=== PATIENT | female | born 1940 | race Caucasian/White ===

== ENCOUNTER 2018-02-17 18:08 | Inpatient (IN) | payer MEDICARE, OTHER ==
--- NOTE | 2018-02-17 18:51 | ER Document Report ---
ED Medical Screen (RME) - General Chief Complaint: Abnormal Lab Results Stated Complaint: REFERRED/ WEAKNESS Time Seen by Provider: 02/17/18 18:47 Notes: Patient was referred here by her primary care provider to receive blood. Patient has a CBC from earlier today which shows a hemoglobin of 5.5 and hematocrit of 20. Patient has a history of gastrointestinal bleeding about 4 years ago secondary to hemorrhoids and had surgery for the latter and has been stable ever since until recently she has been gone to feel very tired and sleepy. She has noticed some black feces, but she is on iron. Has not seen any blood in her stools. Patient has been falling frequently of late and just recently spent some time in [facility]. TRAVEL OUTSIDE OF THE [place] IN LAST 30 DAYS: No - Related Data Allergies/Adverse Reactions: methotrexate [Methotrexate] Allergy (Verified 10/09/13 18:02) Penicillins Allergy (Verified 10/09/13 17:49) Past Medical History - Past Medical History Cardiac Medical History: Reports: Hx Congestive Heart Failure, Hx Hypercholesterolemia, Hx Hypertension Pulmonary Medical History: Denies: Hx Tuberculosis Endocrine Medical History: Reports: Hx Diabetes Mellitus Type 2 Renal/ Medical History: Denies: Hx Peritoneal Dialysis GI Medical History: Reports: Hx Gastroesophageal Reflux Disease Skin Medical History: Reports Hx Psoriasis Past Surgical History: Denies: Hx Pacemaker - Immunizations Hx Diphtheria, Pertussis, Tetanus Vaccination: No Physical Exam - Vital signs Vitals: Temp Pulse Resp BP Pulse Ox 98.2 F 64 24 H 142/42 H 96 02/17/18 18:23 02/17/18 18:23 02/17/18 18:23 02/17/18 18:23 02/17/18 18:23 Course - Vital Signs Vital signs: Temp Pulse Resp BP Pulse Ox 98.2 F 64 24 H 142/42 H 96 02/17/18 18:23 02/17/18 18:23 02/17/18 18:23 02/17/18 18:23 02/17/18 18:23 Doctor's Discharge - Discharge Referrals: TAVARES GONZALEZ DO [Primary Care Provider] - Follow up as needed
[2018-02-17] MEDS ORDERED: NORMAL SALINE 250 ML IV PRN (18:52)
[2018-02-17 20:11] LABS: ABSOLUTE LYMPHOCYTES (AUTO) 0.4 10^3/uL (0.5-4.7); ABSOLUTE MONOCYTES (AUTO) 0.4 10^3/uL (0.1-1.4); BASOPHILS % (AUTO) 0.5 % (0-2); EOSINOPHILS % (AUTO) 0.4 % (0-6); HEMATOCRIT 18.8 % (36.0-47.0); LYMPHOCYTES % (AUTO) 5.5 % (13-45); MEAN CORPUSCULAR HEMOGLOBIN 27.6 pg (27.0-33.4); MEAN CORPUSCULAR HGB CONC 29.8 g/dL (32.0-36.0); MEAN CORPUSCULAR VOLUME 93 fl (80-97); MONOCYTES % (AUTO) 5.4 % (3-13); PLATELET COUNT 379 10^3/uL (150-450); RED BLOOD COUNT 2.03 10^6/uL (3.72-5.28); SEGMENTED NEUTROPHILS % (AUTO) 88.2 % (42-78); TOTAL CELLS COUNTED % (AUTO) 100 %; WHITE BLOOD COUNT 6.8 10^3/uL (4.0-10.5)
[2018-02-17 20:17] LABS: HEMOGLOBIN 5.6 g/dL (12.0-15.5)
--- NOTE | 2018-02-17 21:20 | ER Document Report ---
ED General - General Mode of Arrival: Ambulatory Information source: Patient TRAVEL OUTSIDE OF THE [place] IN LAST 30 DAYS: No <RENETTA HU - Last Filed: 02/18/18 03:42> <OSBALDO PARDO - Last Filed: 02/18/18 03:42> - General Chief Complaint: Abnormal Lab Results Stated Complaint: REFERRED/ WEAKNESS Time Seen by Provider: 02/17/18 18:47 Notes: Patient is a 77 year old female with a history of anemia was sent to the emergency department from PCP's office for a blood transfusion. While at the patient's PCP's office, the patient hemoglobin was recorded to be 5.5 with a hematocrit of 20 and was subsequently sent to the ER. She states she was recently in rehab for frequent falls and discharged 3 days ago. Patient states she has been feeling weak since her discharge from rehab. She states she has been taking iron pills for 1 month and has had subsequent black stools. She also complains of shortness of breath and constant chest pressure further stating her chest pressure has been present since 1991 though recently it radiates into her neck. She denies any bright red blood in stool. Patient had a GI bleed in 2013. (RENETTA HU) - Related Data Allergies/Adverse Reactions: methotrexate [Methotrexate] Allergy (Verified 10/09/13 18:02) Penicillins Allergy (Verified 10/09/13 17:49) Past Medical History - General Information source: Patient - Social History Smoking Status: Former Smoker Family History: Reviewed & Not Pertinent Patient has suicidal ideation: No Patient has homicidal ideation: No - Past Medical History Cardiac Medical History: Reports: Hx Congestive Heart Failure, Hx Hypercholesterolemia, Hx Hypertension Endocrine Medical History: Reports: Hx Diabetes Mellitus Type 2 GI Medical History: Reports: Hx Gastroesophageal Reflux Disease Skin Medical History: Reports Hx Psoriasis - Immunizations Hx Diphtheria, Pertussis, Tetanus Vaccination: No <RENETTA HU - Last Filed: 02/18/18 03:42> Review of Systems - Review of Systems Constitutional: See HPI, Malaise, Weakness EENT: No symptoms reported Cardiovascular: No symptoms reported Respiratory: No symptoms reported Gastrointestinal: See HPI, Black stools - Chronic Genitourinary: No symptoms reported Female Genitourinary: No symptoms reported Musculoskeletal: No symptoms reported Skin: No symptoms reported Hematologic/Lymphatic: No symptoms reported Neurological/Psychological: No symptoms reported -: Yes All other systems reviewed and negative <RENETTA HU - Last Filed: 02/18/18 03:42> Physical Exam <RENETTA HU - Last Filed: 02/18/18 03:42> <OSBALDO PARDO - Last Filed: 02/18/18 03:42> - Vital signs Vitals: Temp Pulse Resp BP Pulse Ox 98.2 F 64 24 H 142/42 H 96 02/17/18 18:23 02/17/18 18:23 02/17/18 18:23 02/17/18 18:23 02/17/18 18:23 - Notes Notes: GENERAL: Alert, interacts well. Appears weak. HEAD: Normocephalic, atraumatic. EYES: Pupils equal, round, and reactive to light. Extraocular movements intact. ENT: Oral mucosa moist, tongue midline. NECK: Full range of motion. Supple. Trachea midline. LUNGS: Trace crackles in the LLL. Appears short of breath. HEART: 3/6 systolic murmur. No gallops or rubs. ABDOMEN: Soft, non-tender. Non-distended. Bowel sounds present in all 4 quadrants. EXTREMITIES: Moves all 4 extremities spontaneously. 1+ pitting edema in the RLE. Radial and dorsalis pedis pulses 2/4 bilaterally. No cyanosis. NEUROLOGICAL: Alert and oriented x3. Normal speech. PSYCH: Normal affect, normal mood. SKIN: Warm, dry, normal turgor. No rashes or lesions noted. RECTAL: No signs of active bleeding. Light brown stool, no melena. (RENETTA HU) Course - Laboratory Result Diagrams: 02/17/18 19:56 02/17/18 21:40 <RENETTA HU - Last Filed: 02/18/18 03:42> - Laboratory Result Diagrams: 02/17/18 19:56 02/17/18 21:40 <OSBALDO PARDO - Last Filed: 02/18/18 03:42> - Re-evaluation Re-evalutation: 02/17/18 23:40 CBC shows leukocytosis hemoglobin of 5.6, no glucose profound anemia with a hemoglobin of 5.6, no leukocytosis, platelets normal, INR slightly prolonged at 1.17, chemistries are abnormal with a sodium of 47.9, potassium slightly elevated at 5.1, CO2 low at 18 but there is no anion gap, it is normal at 13, BUN and creatinine are elevated at 45 and 1.48 respectively, this is her baseline, troponin was checked as she states that she has been having chest pressure since 1991 however it now radiates to her neck for the past month. Occult blood testing is positive, rectal exam was not grossly melanotic. Patient has been typed and crossed for 2 units, patient does have a history of congestive heart failure so she will be given Lasix as well. I discussed the patient with Dr. Napier the hospitalist who is on-call who requested that I discussed with GI, I discussed with Dr. Ramirez the history professor on-call who accepts the consult and states they will likely end up doing endoscopies to see if they can figure out where the bleeding is coming from. I then called Dr. Napier back who accepts the patient to her service as a full admit to the telemetry care unit. (OSBALDO PARDO) - Vital Signs Vital signs: Temp Pulse Resp BP Pulse Ox 97.9 F 63 18 166/58 H 99 02/18/18 01:29 02/18/18 01:29 02/18/18 01:29 02/18/18 01:29 02/18/18 01:29 - Laboratory Laboratory results interpreted by me: 02/17/18 02/17/18 02/17/18 19:56 19:56 21:40 RBC 2.03 L Hgb 5.6 L Hct 18.8 L MCHC 29.8 L RDW 21.0 H Seg Neutrophils % 88.2 H Lymphocytes % 5.5 L Absolute Lymphocytes 0.4 L PT Sodium 147.9 H Potassium 5.1 H Chloride 117 H Carbon Dioxide 18 L BUN 45 H Creatinine 1.48 H Est GFR ( Amer) 41 L Est GFR (Non-Af Amer) 34 L Glucose 181 H Total Protein 6.0 L Albumin 3.2 L Crossmatch See Detail 02/17/18 21:40 RBC Hgb Hct MCHC RDW Seg Neutrophils % Lymphocytes % Absolute Lymphocytes PT 15.5 H Sodium Potassium Chloride Carbon Dioxide BUN Creatinine Est GFR ( Amer) Est GFR (Non-Af Amer) Glucose Total Protein Albumin Crossmatch Discharge <RENETTA HU - Last Filed: 02/18/18 03:42> - Discharge Admitting Provider: Hospitalist - iame Unit Admitted: Telemetry <OSBALDO PARDO - Last Filed: 02/18/18 03:42> - Discharge Clinical Impression: Blood loss anemia GI bleed Qualifiers: GI bleed type/associated pathology: unspecified gastrointestinal hemorrhage type Qualified Code(s): K92.2 - Gastrointestinal hemorrhage, unspecified Condition: Fair Disposition: ADMITTED INPATIENT Scribe Attestation: 02/18/18 03:42 I personally performed the services described in the documentation, reviewed and edited the documentation which was dictated to the scribe in my presence, and it accurately records my words and actions. (OSBALDO PARDO) Scribe Documentation - Scribe Written by Singhe:: Jomar Mcdonough, 02/17/2018 21:31 acting as scribe for :: Amanda <RENETTA HU - Last Filed: 02/18/18 03:42>
[2018-02-17] MEDS ORDERED: FUROSEMIDE INJ/PF 40 MG/4 ML SDV IV ONE (21:29)
[2018-02-17 22:01] LABS: INTERNATIONAL RATION (INR) 1.17; PARTIAL THROMBOPLASTIN TIME 26.7 SEC (23.5-35.8); PROTHROMBIN TIME 15.5 SEC (11.4-15.4)
[2018-02-17 22:16] LABS: ALANINE AMINOTRANSFERASE 27 U/L (9-52); ALBUMIN 3.2 g/dL (3.5-5.0); ALKALINE PHOSPHATASE 88 U/L (38-126); ANION GAP 13 (5-19); ASPARTATE AMINO TRANSFERASE 29 U/L (14-36); BILIRUBIN,DIRECT 0.4 mg/dL (0.0-0.4); BILIRUBIN,TOTAL 0.4 mg/dL (0.2-1.3); BLOOD UREA NITROGEN 45 mg/dL (7-20); CALCIUM 8.5 mg/dL (8.4-10.2); CARBON DIOXIDE 18 mmol/L (22-30); CHLORIDE 117 mmol/L (98-107); GLUCOSE 181 mg/dL (75-110); POTASSIUM 5.1 mmol/L (3.6-5.0); SODIUM 147.9 mmol/L (137-145)
[2018-02-18] MEDS ORDERED: METOCLOPRAMIDE HCL INJ/PF 10 MG/2 ML SDV IV PRN (00:17)
[2018-02-18] MEDS ORDERED: DEXTROSE 50%-WATER 25 GM/50 ML DISP.SYRIN IV PRN ×4 (00:17→00:24)
[2018-02-18] MEDS ORDERED: ACETAMINOPHEN 325 MG TABLET PO PRN (00:17)
[2018-02-18] MEDS ORDERED: GLUCAGON,HUMAN RECOMB 1 MG INJ SUBCUT PRN (00:17)
[2018-02-18] MEDS ORDERED: DEXTROSE 40% GEL 15 GM TUBE PO PRN ×4 (00:17→00:24)
[2018-02-18] MEDS ORDERED: GLUCAGON,HUMAN RECOMB 1 MG INJ IM PRN (00:24)
[2018-02-18] MEDS ORDERED: INSULIN REG, HUMAN 100 UNIT/ML 3 ML VIAL (PYX) SUBCUT PRN (00:24)
[2018-02-18] MEDS ORDERED: PANTOPRAZOLE SODIUM 40 MG VIAL IV ONE (00:45)
--- NOTE | 2018-02-18 01:18 | PDOC H&P ---
History of Present Illness Admission Date/PCP: 02/17/18 23:48 TAVARES GONZALEZ DO Patient complains of: Needs a blood transfusion History of Present Illness: PREETI ELIZABETH is a 77 year old female with history of anemia who comes to the emergency department sent by her PCP for a blood transfusion. Her friend who is at the bedside tells me she was hospitalized recently at [facility] and discharged to a rehab facility improved her frequent falls, discharge from the facility last Friday and is staying with her friend. One day ago the patient fell from the bed having an excoriation with peeling of her skin in her left upper extremity, reason for which they went to her primary care physician, laboratory was done and her hemoglobin was recorded to be 5.5 with a hematocrit of 20, sent to the ED. She has been feeling weak since her discharge from rehab. Tells me she is having shortness of breath and some chest pressure but she is not sure if that is new or not. Tells me she has black stools for the last 2 or 3 months when she has started taking iron pills, 2 large bowel movements and to a small during the day. Denies any bleeding including vaginal bleeding. Denies taking NSAIDs or any other [id number] medication except for calcium. Denies history of malignancy. About 3 years ago she was hospitalized in [place], she was found with a hemoglobin of 4, received blood transfusion and was following with transportation department head. Tells me she had a colonoscopy but she does not remember an EGD. In the emergency department to PRBCs order, 1 running the time of my interview with her. Is in immunosuppressant drugs for her rheumatoid arthritis. Taking Plavix for her coronary arterial disease. Has been told to not take methotrexate as gave her a very bad adverse reaction in the past. Hemoglobin 5.6 and hematocrit 18 in the ED. Occult blood in his stools positive. Past Medical History Past Medical History: Rheumatoid arthritis Cardiac Medical History: Reports: Congestive Heart Failure, Coronary Artery Disease - With 2 stents in the past, Hyperlipidema, Hypertension Pulmonary Medical History: Denies: Tuberculosis Endocrine Medical History: Reports: Diabetes Mellitus Type 2 GI Medical History: Reports: Gastroesophageal Reflux Disease, Other - GI bleeding Skin Medical History: Reports: Psoriasis Past Surgical History Past Surgical History: Reports: Cardiac Catheterization, Herniorrhaphy Denies: Pacemaker Social History Information Source: Patient Lives with: Friend Smoking Status: Former Smoker - We do smoking about 30 years ago Hx Recreational Drug Use: No Hx Prescription Drug Abuse: No Past Social History Note: 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 Family History Family History: Reviewed & Not Pertinent Parental Family History Reviewed: Yes - Both parents had a [place] Children Family History Reviewed: NA Sibling(s) Family History Reviewed.: NA Medication/Allergy Home Medications: Acetaminophen [Tylenol 325 mg Tablet] 650 mg PO Q4HP PRN 03/05/12 Amlodipine Besylate [Norvasc 10 mg Tablet] 10 mg PO DAILY 03/05/12 Atenolol [Tenormin 25 mg Tablet] 25 mg PO DAILY 03/05/12 Clopidogrel Bisulfate [Plavix 75 Mg Tablet] 75 mg PO DAILY 03/05/12 Fenofibrate [Lofibra] 160 mg PO DAILY 03/05/12 Glipizide [Glucotrol Xl 2.5 Mg Tab.Er] 2.5 mg PO DAILY 03/05/12 Pantoprazole Sodium [Protonix] 40 mg PO DAILY 03/05/12 Sertraline HCl [Zoloft 50 Mg Tablet] 50 mg PO DAILY 03/05/12 Acidophilus/Bifido Longum [Lactobacillus Capsule] 16 mg PO BID 03/06/12 Prednisone [Prednisone 1 Mg Tablet] 5 mg PO DAILY 03/06/12 Acetaminophen with Codeine [Tylenol with Codeine #3 Tablet] 1 tab PO Q4 PRN Ciprofloxacin HCl [Cipro 250 mg Tablet] 1 tab PO BID 08/12/13 Folic Acid 1 mg PO DAILY 08/12/13 Gabapentin [Neurontin 400 mg Capsule] 400 mg PO Q8 08/12/13 Losartan Potassium 100 mg PO 08/12/13 Magnesium Oxide [Mag-Oxide] 400 mg PO 08/12/13 Methotrexate Sodium [Methotrexate] 2.5 mg PO DAILY 08/12/13 Nystatin/Dexameth/Diphen [Magic Mouthwash] 5 ml PO QID #120 ml 08/12/13 Oxycodone HCl/Acetaminophen [Percocet 5-325 mg Tablet] 1 tab PO ASDIR PRN #10 tablet 08/12/13 Solifenacin Succinate [Vesicare] 5 mg PO DAILY 08/12/13 Allergies/Adverse Reactions: methotrexate [Methotrexate] Allergy (Verified 10/09/13 18:02) Penicillins Allergy (Verified 10/09/13 17:49) Review of Systems Review of Systems: As outlined in the HPI, all others negative Physical Exam Vital Signs: Temp Pulse Resp BP Pulse Ox 98.3 F 66 22 H 163/55 H 100 02/17/18 22:18 02/17/18 22:18 02/17/18 22:18 02/17/18 22:18 02/17/18 22:18 Additional comments: General appearance: Well-developed, well-nourished, alert and cooperative, and appears to be in no acute distress Head: Normocephalic Eyes: PEERL, EOMI, vision is grossly intact. Ears: External auditory canal and tympanic membranes clear, hearing grossly intact. Nose: No nasal discharge. Throat: Oral cavity and pharynx normal. No inflammation, swelling, exudate or lesions. Neck: Neck supple, nontender without lymphadenopathy, masses or thyromegaly. Cardiac: Normal S1 and S2. No S3, S4 or murmurs. Rhythm is regular. There is no peripheral edema, cyanosis or pallor. Extremities are warm and well perfused. Capillary refill is less than 2 seconds. No carotid bruits. Lungs: Clear to auscultation and percussion without rales, rhonchi, wheezing or diminished breath sounds. Not using accessory muscles. Abdomen: Positive bowel sounds. Soft. Nondistended, nontender. No guarding or rebound. No masses. No hepatosplenomegaly Extremities: No significant deformity or joint abnormality. No edema. Peripheral pulses intact. No varicosities. Neurological: Cranial nerves II through XII grossly intact. Strength and sensation symmetric and intact throughout. Reflexes 2+ throughout. Skin: Skin pale, normal texture and turgor with no lesions or eruptions, warm and dry. Psychiatric: The mental examination revealed the patient was oriented to person , place, and time. The patient was able to demonstrate good judgment on recent , without hallucinations, abnormal affect or abnormal behaviors. Results Laboratory Results: 02/17/18 02/17/18 02/17/18 19:56 21:24 21:40 WBC 6.8 RBC 2.03 L Hgb 5.6 L Hct 18.8 L MCV 93 MCH 27.6 MCHC 29.8 L RDW 21.0 H Plt Count 379 Seg Neutrophils % 88.2 H Lymphocytes % 5.5 L Monocytes % 5.4 Eosinophils % 0.4 Basophils % 0.5 Absolute Neutrophils 6.0 Absolute Lymphocytes 0.4 L Absolute Monocytes 0.4 Absolute Eosinophils 0.0 Absolute Basophils 0.0 PT INR APTT Sodium 147.9 H Potassium 5.1 H Chloride 117 H Carbon Dioxide 18 L Anion Gap 13 BUN 45 H Est GFR ( Amer) 41 L Est GFR (Non-Af Amer) 34 L Glucose 181 H Calcium 8.5 Total Bilirubin 0.4 Direct Bilirubin 0.4 AST 29 ALT 27 Alkaline Phosphatase 88 Total Protein 6.0 L Albumin 3.2 L Stool Occult Blood POSITIVE 02/17/18 21:40 WBC RBC Hgb Hct MCV MCH MCHC RDW Plt Count Seg Neutrophils % Lymphocytes % Monocytes % Eosinophils % Basophils % Absolute Neutrophils Absolute Lymphocytes Absolute Monocytes Absolute Eosinophils Absolute Basophils PT 15.5 H INR 1.17 APTT 26.7 Sodium Potassium Chloride Carbon Dioxide Anion Gap BUN Est GFR ( Amer) Est GFR (Non-Af Amer) Glucose Calcium Total Bilirubin Direct Bilirubin AST ALT Alkaline Phosphatase Total Protein Albumin Stool Occult Blood Assessment & Plan - Diagnosis (1) GI bleed Qualifiers: GI bleed type/associated pathology: unspecified gastrointestinal hemorrhage type Qualified Code(s): K92.2 - Gastrointestinal hemorrhage, unspecified Is this a current diagnosis for this admission?: Yes Plan: Patient comes from her primary care physician as she was found with profound anemia, hemoglobin 5.6 and hematocrit 18. Patient is running 1 unit of PRBC and I will give the second 1 and recheck her H&H. ED sent and a smear. Photonix 40 mg IV every 12 hours. Will try to add anyemia workup to labs collected in the ED before she has started a transfusion. GI with Dr. Ramirez is aware of the patient and will see her in consultation. No active bleeding. Iron and Plavix on hold. (2) Hypertension Qualifiers: Hypertension type: essential hypertension Qualified Code(s): I10 - Essential (primary) hypertension Is this a current diagnosis for this admission?: Yes Plan: Blood pressure decently controlled, for now I will continue with her home antihypertensive medications. (3) Diabetes mellitus type 2 in obese Is this a current diagnosis for this admission?: Yes Plan: Continue with glipizide. Accu-Cheks every 4 hours with insulin lispro sliding scale and hypoglycemia protocol. (4) Coronary artery disease Qualifiers: Coronary Disease-Associated Artery/Lesion type: unspecified vessel or lesion type Associated angina: without angina Is this a current diagnosis for this admission?: Yes Plan: Patient has some chest pressure that he has been having for years. No new cardiac symptomatology. (5) CHF (congestive heart failure) Qualifiers: Heart failure chronicity: unspecified Is this a current diagnosis for this admission?: Yes Plan: Unknown systolic or diastolic, she is on Lasix at home. Lasix has been ordered in the ED before blood transfusion. Close monitor her respiratory status. (6) Acute renal failure superimposed on stage 3 chronic kidney disease Is this a current diagnosis for this admission?: Yes Plan: BUN 45 and creatinine 1.48, patient has CKD stage III and her baseline creatinine is around 1.3. Hopefully after transfusion it goes back to her baseline. Renal panel in the morning.
[2018-02-18 06:06] LABS: ABSOLUTE BASOPHILS # (AUTO) 0.1 10^3/uL (0.0-0.2); ABSOLUTE EOSINOPHILS # (AUTO) 0.1 10^3/uL (0.0-0.6); ABSOLUTE LYMPHOCYTES (AUTO) 0.9 10^3/uL (0.5-4.7); ABSOLUTE MONOCYTES (AUTO) 0.7 10^3/uL (0.1-1.4); ABSOLUTE NEUT (AUTO) 4.8 10^3/uL (1.7-8.2); BASOPHILS % (AUTO) 0.9 % (0-2); EOSINOPHILS % (AUTO) 1.2 % (0-6); LYMPHOCYTES % (AUTO) 13.3 % (13-45); MEAN CORPUSCULAR HEMOGLOBIN 28.3 pg (27.0-33.4); MEAN CORPUSCULAR HGB CONC 32.8 g/dL (32.0-36.0); MONOCYTES % (AUTO) 10.1 % (3-13); PLATELET COUNT 302 10^3/uL (150-450); RED BLOOD COUNT 2.89 10^6/uL (3.72-5.28); RED CELL DISTRIBUTION WIDTH 16.9 % (11.5-14.0); SEGMENTED NEUTROPHILS % (AUTO) 74.5 % (42-78); TOTAL CELLS COUNTED % (AUTO) 100 %; WHITE BLOOD COUNT 6.5 10^3/uL (4.0-10.5)
[2018-02-18 06:08] LABS: MEAN CORPUSCULAR VOLUME 86 fl (80-97)
[2018-02-18 06:09] LABS: HEMOGLOBIN 8.2 g/dL (12.0-15.5)
--- NOTE | 2018-02-18 07:22 | PDOC CONSULTATION ---
Consultation Consult Date: 02/17/18 Attending physician:: MALA MALDONADO Consult reason:: GI bleeding. anemia History of Present Illness Admission Date/PCP: 02/17/18 23:48 TAVARES GONZALEZ DO History of Present Illness: PREETI ELIZABETH is a 77 year old female I had been called overnight on this patient noted to present with weakness and found to have a Hgb of 5.6 patient has noted the presence of dark stools in the past however she is on iron patient also takes Plavix patient had a colonoscopy done in the past in 2013 was noted to have diverticulosis, and rectal prolapse never had an EGD in the past denies the use of NSAIDS patient will be admitted to the Hospitalist service will likely need transfusion and have iron studies to be performed patient will need to have EGD done will hold off on repeating a colonoscopy at this time she denies any rectal bleeding that could be consistent with diverticular bleeding has heme positive stools she is on Prednisone , I am suspecting due to ?? psoriasis however that is a high risk medication and should be discontinued patient will need bone density evaluation, she likely could be steroid induced bone injury that is putting her at the risk of falls would also get Hematology involved at this point Past Medical History Cardiac Medical History: Reports: Congestive Heart Failure, Coronary Artery Disease - With 2 stents in the past, Hyperlipidema, Hypertension Pulmonary Medical History: Denies: Tuberculosis Endocrine Medical History: Reports: Diabetes Mellitus Type 2 GI Medical History: Reports: Gastroesophageal Reflux Disease, Other - GI bleeding Skin Medical History: Reports: Psoriasis Past Surgical History Past Surgical History: Reports: Cardiac Catheterization, Herniorrhaphy Denies: Pacemaker Social History Lives with: Friend Smoking Status: Former Smoker Hx Recreational Drug Use: No Hx Prescription Drug Abuse: No Family History Family History: Reviewed & Not Pertinent Parental Family History Reviewed: Yes Children Family History Reviewed: Unknown Sibling(s) Family History Reviewed.: Unknown Medication/Allergy Allergies/Adverse Reactions: methotrexate [Methotrexate] Allergy (Verified 10/09/13 18:02) Penicillins Allergy (Verified 10/09/13 17:49) Review of Systems Constitutional: PRESENT: weakness. ABSENT: fever(s), headache(s), night sweats Eyes: ABSENT: visual disturbances Ears: ABSENT: hearing changes Nose, Mouth, and Throat: ABSENT: mouth pain, sore throat Cardiovascular: ABSENT: edema, palpitations Respiratory: ABSENT: dyspnea, hemoptysis Gastrointestinal: PRESENT: melena. ABSENT: nausea, vomiting Genitourinary: ABSENT: dysuria, hematuria Musculoskeletal: ABSENT: deformity, joint swelling Integumentary: ABSENT: pruritus Neurological: PRESENT: weakness. ABSENT: syncope, tingling, tremor(s), vertigo Endocrine: ABSENT: polydipsia, polyphagia, polyuria Hematologic/Lymphatic: ABSENT: easy bruising Physical Exam Vital Signs: Temp Pulse Resp BP Pulse Ox 97.8 F 62 17 187/67 H 100 02/18/18 04:00 02/18/18 04:00 02/18/18 04:00 02/18/18 04:00 02/18/18 04:00 Intake & Output 02/17/18 02/18/18 02/19/18 06:59 06:59 06:59 Intake Total 600 Balance 600 General appearance: PRESENT: no acute distress Head exam: PRESENT: atraumatic, normocephalic Eye exam: PRESENT: EOMI, PERRLA. ABSENT: nystagmus, periorbital swelling, scleral icterus Mouth exam: PRESENT: moist, neck supple Throat exam: ABSENT: tonsillar exudate, tonsillogmegaly Neck exam: ABSENT: meningismus, tenderness, thyromegaly Respiratory exam: PRESENT: symmetrical, unlabored. ABSENT: tachypnea, wheezes Cardiovascular exam: PRESENT: +S1, +S2 Pulses: PRESENT: normal carotid pulses GI/Abdominal exam: PRESENT: soft, tenderness. ABSENT: rebound, rigid Extremities exam: ABSENT: joint swelling Musculoskeletal exam: PRESENT: full ROM Neurological exam: PRESENT: alert, awake, oriented to time, oriented to situation, CN II-XII grossly intact Skin exam: PRESENT: normal color, pallor. ABSENT: mottled, urticaria, vesicles Results Laboratory Results: 02/18/18 05:50 02/18/18 05:50 WBC 6.5 RBC 2.89 L Hgb 8.2 L D Hct 25.0 L MCV 86 D MCH 28.3 MCHC 32.8 RDW 16.9 H Plt Count 302 Seg Neutrophils % 74.5 Lymphocytes % 13.3 Monocytes % 10.1 Eosinophils % 1.2 Basophils % 0.9 Absolute Neutrophils 4.8 Absolute Lymphocytes 0.9 Absolute Monocytes 0.7 Absolute Eosinophils 0.1 Absolute Basophils 0.1 Assessment & Plan - Diagnosis (1) GI bleed Qualifiers: GI bleed type/associated pathology: unspecified gastrointestinal hemorrhage type Qualified Code(s): K92.2 - Gastrointestinal hemorrhage, unspecified Is this a current diagnosis for this admission?: Yes Plan: dark stools could be due to the ingestion of iron she has had a fairly recent colonoscopy done will need to get records she needs to be stabilized PRBC tranfusion started on a PPI will need an EGD at some point her has multiple electrolyte abnormalities that will need correction prior to her EGD will see if that can be accomplished by the am Risks, benefits and alternatives are discussed - Time Time Spent: 50 to 70 Minutes
[2018-02-18] MEDS: PANTOPRAZOLE SODIUM 40 MG VIAL IV SCH ×2 (09:59→21:34)
[2018-02-18] MEDS ORDERED: PROPOFOL INJ 200 MG/20 ML VIAL IV ONE (12:02)
--- NOTE | 2018-02-18 12:45 | Operative Report ---
Operative Report DATE OF SURGERY: 02/18/18 Operative Report: The risks benefits and alternatives of the procedure explained to the patient in detail and informed consent is obtained.A GIF Olympus video scope was inserted into the patient's mouth and hypopharynx, the esophagus is identified intubated and insufflated, the scope was then advanced through the esophagus stomach and duodenum, retroflexion maneuver is done, the esophagus stomach and first and second portions of the duodenum examined PREOPERATIVE DIAGNOSIS: Melena POSTOPERATIVE DIAGNOSIS: Duodenal AVM ablated in situ. Gastritis status post biopsy rule out Helicobacter pylori OPERATION: EGD with ablation. EGD with biopsy SURGEON: MALA MALDONADO ANESTHESIA: LMAC TISSUE REMOVED OR ALTERED: As noted above COMPLICATIONS: None. ESTIMATED BLOOD LOSS: None. INTRAOPERATIVE FINDINGS: As noted above. PROCEDURE: Patient tolerated the procedure well. No immediate postprocedure complications are noted. Patient is sent back to her room in good condition. Follow H&H Transfuse if necessary Duodenal AVM likely the cause for the patient's recent bleed as well as anemia This has been cauterized We will check biopsy for Helicobacter pylori and treat if necessary Resume regular diet Resume previous activity level
--- NOTE | 2018-02-18 15:13 | EKG REPORT ---
SEVERITY:- ABNORMAL ECG - SINUS RHYTHM ATRIAL PREMATURE COMPLEX PROBABLE LVH WITH SECONDARY REPOL ABNRM ANTERIOR Q WAVES, POSSIBLY DUE TO LVH : Confirmed by: Viviana Kaplan MD 18-Feb-2018 15:11:24
--- NOTE | 2018-02-18 19:06 | PDOC PROGRESS REPORT ---
Subjective Progress Note for:: 02/18/18 Subjective:: Skin admitted with anemia and GI bleeding. She is scheduled for EGD today Reason For Visit: GI BLEEDING Physical Exam Vital Signs: Temp Pulse Resp BP Pulse Ox 98.5 F 62 15 175/53 H 94 02/18/18 16:26 02/18/18 16:26 02/18/18 16:26 02/18/18 16:26 02/18/18 16:26 Intake & Output 02/17/18 02/18/18 02/19/18 06:59 06:59 06:59 Intake Total 600 450 Output Total 0 Balance 600 450 General appearance: PRESENT: no acute distress, well-developed, well-nourished Head exam: PRESENT: atraumatic, normocephalic Eye exam: PRESENT: conjunctiva pale, EOMI. ABSENT: scleral icterus Ear exam: PRESENT: normal external ear exam Mouth exam: PRESENT: tongue midline Neck exam: ABSENT: carotid bruit, JVD, lymphadenopathy, thyromegaly Respiratory exam: PRESENT: clear to auscultation kaylee. ABSENT: rales, rhonchi, wheezes Cardiovascular exam: PRESENT: RRR. ABSENT: diastolic murmur, rubs, systolic murmur Pulses: PRESENT: normal dorsalis pedis pul Vascular exam: PRESENT: normal capillary refill GI/Abdominal exam: PRESENT: normal bowel sounds, soft. ABSENT: distended, guarding, mass, organolmegaly, rebound, tenderness Rectal exam: PRESENT: deferred Extremities exam: PRESENT: full ROM. ABSENT: calf tenderness, clubbing, pedal edema Neurological exam: PRESENT: alert, awake, oriented to person, oriented to place , oriented to time, oriented to situation. ABSENT: motor sensory deficit Psychiatric exam: PRESENT: appropriate affect. ABSENT: homicidal ideation, suicidal ideation Skin exam: PRESENT: dry, intact, warm. ABSENT: cyanosis, rash Results Laboratory Results: 02/18/18 05:50 02/18/18 05:50 WBC 6.5 RBC 2.89 L Hgb 8.2 L D Hct 25.0 L MCV 86 D MCH 28.3 MCHC 32.8 RDW 16.9 H Plt Count 302 Seg Neutrophils % 74.5 Lymphocytes % 13.3 Monocytes % 10.1 Eosinophils % 1.2 Basophils % 0.9 Absolute Neutrophils 4.8 Absolute Lymphocytes 0.9 Absolute Monocytes 0.7 Absolute Eosinophils 0.1 Absolute Basophils 0.1 Assessment & Plan - Diagnosis (1) Acute renal failure superimposed on stage 3 chronic kidney disease Is this a current diagnosis for this admission?: Yes Plan: Due to GI Bleed (2) Blood loss anemia Is this a current diagnosis for this admission?: Yes Plan: s/p 2 units PRBC (3) CHF (congestive heart failure) Qualifiers: Heart failure chronicity: unspecified Is this a current diagnosis for this admission?: Yes (4) Coronary artery disease Qualifiers: Coronary Disease-Associated Artery/Lesion type: unspecified vessel or lesion type Associated angina: without angina Is this a current diagnosis for this admission?: Yes (5) Diabetes mellitus type 2 in obese Is this a current diagnosis for this admission?: Yes (6) GI bleed Qualifiers: GI bleed type/associated pathology: unspecified gastrointestinal hemorrhage type Qualified Code(s): K92.2 - Gastrointestinal hemorrhage, unspecified Is this a current diagnosis for this admission?: Yes - Time Time Spent with patient: 15-24 minutes Anticipated discharge: Home Within: within 48 hours - Inpatient Certification Based on my medical assessment, after consideration of the patient's comorbidities, presenting symptoms, or acuity I expect that the services needed warrant INPATIENT care.: Yes Medical Necessity: Need Close Monitoring Due to Risk of Patient Decompensation, Risk of Complication if Not Cared For in Hospital
[2018-02-18] MEDS ORDERED: ALBUTEROL SULFATE HFA (90 MCG/PUFF) 200 PUFF/8.5 GM MDI IH PRN (19:45)
[2018-02-18] MEDS: CARVEDILOL 6.25 MG TABLET PO SCH (20:21)
[2018-02-18] MEDS: LOSARTAN POTASSIUM 50 MG TABLET PO SCH (20:21)
[2018-02-18] MEDS: GABAPENTIN 400 MG CAPSULE PO SCH (20:21)
[2018-02-18] MEDS ORDERED: (PENDING PHARMACY ID) (Apremilast [Otezla] 30 MG) PO SCH (21:00)
[2018-02-18] MEDS ORDERED: (PENDING PHARMACY ID) (Fenofibrate Nanocrystallized [Triglide] 160 MG) PO SCH (21:00)
[2018-02-18] MEDS: ATORVASTATIN CALCIUM 20 MG TABLET PO SCH (21:34)
[2018-02-18] MEDS: INSULIN GLARGINE,HUM.REC.ANLOG 300 UNIT/3 ML INSULN.PEN SUBCUT SCH (21:35)
[2018-02-19 05:12] LABS: HEMATOCRIT 25.3 % (36.0-47.0); HEMOGLOBIN 8.1 g/dL (12.0-15.5); MEAN CORPUSCULAR HEMOGLOBIN 27.8 pg (27.0-33.4); MEAN CORPUSCULAR VOLUME 87 fl (80-97); PLATELET COUNT 303 10^3/uL (150-450); RED BLOOD COUNT 2.91 10^6/uL (3.72-5.28); RED CELL DISTRIBUTION WIDTH 17.3 % (11.5-14.0); WHITE BLOOD COUNT 5.8 10^3/uL (4.0-10.5)
[2018-02-19 05:16] LABS: ABSOLUTE RETICS # 0.159 10^6/uL (0.028-0.122); RETICULOCYTE COUNT (AUTO) 5.48 % (0.66-2.85)
[2018-02-19 05:27] LABS: ANION GAP 8 (5-19); BLOOD UREA NITROGEN 30 mg/dL (7-20); CALCIUM 8.7 mg/dL (8.4-10.2); CARBON DIOXIDE 26 mmol/L (22-30); CHLORIDE 113 mmol/L (98-107); GLUCOSE 79 mg/dL (75-110); IRON(TIBC) 18.2 ug/dL (37-170); POTASSIUM 4.5 mmol/L (3.6-5.0); SODIUM 147.1 mmol/L (137-145)
[2018-02-19] MEDS ORDERED: (PENDING PHARMACY ID) (Fenofibrate Nanocrystallized [Triglide] 160 MG) PO SCH (10:00)
[2018-02-19] MEDS ORDERED: (PENDING PHARMACY ID) (Apremilast [Otezla] 30 MG) PO SCH (10:00)
[2018-02-19] MEDS: GABAPENTIN 400 MG CAPSULE PO SCH ×2 (11:05→21:02)
[2018-02-19] MEDS: COLCHICINE 0.6 MG TABLET PO SCH (11:05)
[2018-02-19] MEDS: PANTOPRAZOLE SODIUM 40 MG VIAL IV SCH ×2 (11:05→21:02)
[2018-02-19] MEDS: CARVEDILOL 6.25 MG TABLET PO SCH ×2 (11:06→21:02)
[2018-02-19] MEDS: BUMETANIDE 1 MG TABLET PO SCH (11:06)
[2018-02-19] MEDS ORDERED: METOCLOPRAMIDE HCL INJ/PF 10 MG/2 ML SDV IV PRN (11:30)
--- NOTE | 2018-02-19 12:35 | PDOC PROGRESS REPORT ---
Subjective Progress Note for:: 02/19/18 Subjective:: Patient tolerated EGD yesterday still has some electrolyte abnormalities she did have an AVM that required ablation Hgb has been stable her diet can be advanced PPI follow up as outpatient biopsies are still pending Reason For Visit: GI BLEEDING Physical Exam Vital Signs: Temp Pulse Resp BP Pulse Ox 99.1 F 60 18 162/51 H 98 02/19/18 11:33 02/19/18 11:33 02/19/18 11:33 02/19/18 11:33 02/19/18 11:33 Intake & Output 02/18/18 02/19/18 02/20/18 06:59 06:59 06:59 Intake Total 600 627 200 Output Total 0 Balance 600 627 200 General appearance: PRESENT: no acute distress, well-developed, well-nourished Head exam: PRESENT: atraumatic, normocephalic Eye exam: PRESENT: EOMI, PERRLA. ABSENT: nystagmus, scleral icterus Mouth exam: PRESENT: moist, neck supple Throat exam: ABSENT: tonsillar exudate, tonsillogmegaly Neck exam: ABSENT: meningismus, tenderness, thyromegaly Respiratory exam: PRESENT: symmetrical, unlabored. ABSENT: tachypnea, wheezes Cardiovascular exam: PRESENT: RRR, +S1, +S2 GI/Abdominal exam: PRESENT: soft. ABSENT: rebound, rigid, tenderness Musculoskeletal exam: PRESENT: full ROM Neurological exam: PRESENT: oriented to time, oriented to situation, CN II-XII grossly intact Focused psych exam: ABSENT: restlessness Skin exam: PRESENT: normal color. ABSENT: mottled, pallor, urticaria, vesicles Results Laboratory Results: 02/19/18 04:40 02/19/18 04:40 02/19/18 02/19/18 02/19/18 04:40 04:40 04:40 WBC 5.8 RBC 2.91 L Hgb 8.1 L Hct 25.3 L MCV 87 MCH 27.8 MCHC 32.0 RDW 17.3 H Plt Count 303 Retic Count (auto) 5.48 H Absolute Retic 0.159 H Sodium 147.1 H Potassium 4.5 Chloride 113 H Carbon Dioxide 26 Anion Gap 8 BUN 30 H Creatinine 1.30 H Est GFR ( Amer) 48 L Est GFR (Non-Af Amer) 40 L Glucose 79 Calcium 8.7 Phosphorus 3.0 Magnesium 1.7 Iron 18.2 L TIBC 436 % Saturation 4 Ferritin 17.50 Vitamin B12 Folate 10.10 02/19/18 02/19/18 04:40 06:55 WBC RBC Hgb Hct MCV MCH MCHC RDW Plt Count Retic Count (auto) Cancelled Absolute Retic Cancelled Sodium Potassium Chloride Carbon Dioxide Anion Gap BUN Creatinine Est GFR ( Amer) Est GFR (Non-Af Amer) Glucose Calcium Phosphorus Magnesium Iron TIBC % Saturation Ferritin Vitamin B12 280.0 Folate Assessment & Plan - Diagnosis (1) GI bleed Qualifiers: GI bleed type/associated pathology: unspecified gastrointestinal hemorrhage type Qualified Code(s): K92.2 - Gastrointestinal hemorrhage, unspecified Is this a current diagnosis for this admission?: Yes (2) Blood loss anemia Is this a current diagnosis for this admission?: Yes Plan: stable since ablation of AVM continue PPI wait on biopsy and treat for H.pylori as needed follow up as outpatient - Time Time Spent with patient: 15-24 minutes
--- NOTE | 2018-02-19 14:56 | PDOC PROGRESS REPORT ---
Subjective Progress Note for:: 02/19/18 Subjective:: admitted with anemia and GI bleeding. EGD -Duodenal AVM as likely cause for the patient's recent bleed as well as anemia This has been cauterized Reason For Visit: GI BLEEDING Physical Exam Vital Signs: Temp Pulse Resp BP Pulse Ox 99.1 F 60 18 162/51 H 98 02/19/18 11:33 02/19/18 11:33 02/19/18 11:33 02/19/18 11:33 02/19/18 11:33 Intake & Output 02/18/18 02/19/18 02/20/18 06:59 06:59 06:59 Intake Total 600 627 200 Output Total 0 Balance 600 627 200 General appearance: PRESENT: no acute distress, well-developed, well-nourished Head exam: PRESENT: atraumatic, normocephalic Eye exam: PRESENT: conjunctiva pink, EOMI, PERRLA. ABSENT: scleral icterus Ear exam: PRESENT: normal external ear exam Mouth exam: PRESENT: moist, tongue midline Neck exam: ABSENT: carotid bruit, JVD, lymphadenopathy, thyromegaly Respiratory exam: PRESENT: clear to auscultation kaylee. ABSENT: rales, rhonchi, wheezes Cardiovascular exam: PRESENT: RRR. ABSENT: diastolic murmur, rubs, systolic murmur Pulses: PRESENT: normal dorsalis pedis pul Vascular exam: PRESENT: normal capillary refill GI/Abdominal exam: PRESENT: normal bowel sounds, soft. ABSENT: distended, guarding, mass, organolmegaly, rebound, tenderness Rectal exam: PRESENT: deferred Extremities exam: PRESENT: full ROM. ABSENT: calf tenderness, clubbing, pedal edema Neurological exam: PRESENT: alert, awake, oriented to person, oriented to place , oriented to time, oriented to situation, CN II-XII grossly intact. ABSENT: motor sensory deficit Psychiatric exam: PRESENT: appropriate affect, normal mood. ABSENT: homicidal ideation, suicidal ideation Skin exam: PRESENT: dry, intact, warm. ABSENT: cyanosis, rash Results Laboratory Results: 02/19/18 04:40 02/19/18 04:40 02/19/18 02/19/18 02/19/18 04:40 04:40 04:40 WBC 5.8 RBC 2.91 L Hgb 8.1 L Hct 25.3 L MCV 87 MCH 27.8 MCHC 32.0 RDW 17.3 H Plt Count 303 Retic Count (auto) 5.48 H Absolute Retic 0.159 H Sodium 147.1 H Potassium 4.5 Chloride 113 H Carbon Dioxide 26 Anion Gap 8 BUN 30 H Creatinine 1.30 H Est GFR ( Amer) 48 L Est GFR (Non-Af Amer) 40 L Glucose 79 Calcium 8.7 Phosphorus 3.0 Magnesium 1.7 Iron 18.2 L TIBC 436 % Saturation 4 Ferritin 17.50 Vitamin B12 Folate 10.10 02/19/18 02/19/18 04:40 06:55 WBC RBC Hgb Hct MCV MCH MCHC RDW Plt Count Retic Count (auto) Cancelled Absolute Retic Cancelled Sodium Potassium Chloride Carbon Dioxide Anion Gap BUN Creatinine Est GFR ( Amer) Est GFR (Non-Af Amer) Glucose Calcium Phosphorus Magnesium Iron TIBC % Saturation Ferritin Vitamin B12 280.0 Folate Assessment & Plan - Diagnosis (1) Acute renal failure superimposed on stage 3 chronic kidney disease Is this a current diagnosis for this admission?: Yes Plan: Kidney function improved (2) Blood loss anemia Is this a current diagnosis for this admission?: Yes Plan: Hemoglobin stable (3) CHF (congestive heart failure) Qualifiers: Heart failure chronicity: chronic Is this a current diagnosis for this admission?: Yes Plan: Patient is euvolemic (4) Coronary artery disease Qualifiers: Coronary Disease-Associated Artery/Lesion type: unspecified vessel or lesion type Associated angina: without angina Is this a current diagnosis for this admission?: Yes (5) Diabetes mellitus type 2 in obese Is this a current diagnosis for this admission?: Yes Plan: Cont SSI (6) GI bleed Qualifiers: GI bleed type/associated pathology: unspecified gastrointestinal hemorrhage type Qualified Code(s): K92.2 - Gastrointestinal hemorrhage, unspecified Is this a current diagnosis for this admission?: Yes Plan: Likely secondary to AVM. Will monitor overnight and plan on early dc if stable - Time Time Spent with patient: 15-24 minutes Medications reviewed and adjusted accordingly: Yes Anticipated discharge: SNF Within: within 48 hours - Inpatient Certification Based on my medical assessment, after consideration of the patient's comorbidities, presenting symptoms, or acuity I expect that the services needed warrant INPATIENT care.: Yes Medical Necessity: Need Close Monitoring Due to Risk of Patient Decompensation, Risk of Complication if Not Cared For in Hospital
--- NOTE | 2018-02-19 15:04 | Progress Note ---
Provider Note Provider Note: Patient was admitted with acute blood loss anemia as well as a GI bleed. There is no recent echocardiogram, BNP or chest x-ray and patient is clinically euvolemic. Although she carries a diagnosis of CHF based on indication the patient is currently decompensated. As this is not an active issue at this time chronic CHF will be added as the diagnosis but no other comments can be made about this
[2018-02-19] MEDS: FENOFIBRATE NANOCRYSTALLIZED 145 MG TABLET PO SCH (17:30)
[2018-02-19] MEDS: ATORVASTATIN CALCIUM 20 MG TABLET PO SCH (21:02)
[2018-02-19] MEDS: INSULIN GLARGINE,HUM.REC.ANLOG 300 UNIT/3 ML INSULN.PEN SUBCUT SCH (22:22)
[2018-02-20 05:55] LABS: ABSOLUTE BASOPHILS # (AUTO) 0.1 10^3/uL (0.0-0.2); ABSOLUTE EOSINOPHILS # (AUTO) 0.1 10^3/uL (0.0-0.6); ABSOLUTE LYMPHOCYTES (AUTO) 0.9 10^3/uL (0.5-4.7); ABSOLUTE MONOCYTES (AUTO) 0.5 10^3/uL (0.1-1.4); ABSOLUTE NEUT (AUTO) 3.8 10^3/uL (1.7-8.2); BASOPHILS % (AUTO) 1.4 % (0-2); EOSINOPHILS % (AUTO) 1.7 % (0-6); HEMATOCRIT 26.9 % (36.0-47.0); HEMOGLOBIN 8.6 g/dL (12.0-15.5); LYMPHOCYTES % (AUTO) 17.6 % (13-45); MEAN CORPUSCULAR HEMOGLOBIN 27.6 pg (27.0-33.4); MEAN CORPUSCULAR VOLUME 86 fl (80-97); MONOCYTES % (AUTO) 8.7 % (3-13); PLATELET COUNT 311 10^3/uL (150-450); RED BLOOD COUNT 3.12 10^6/uL (3.72-5.28); RED CELL DISTRIBUTION WIDTH 16.7 % (11.5-14.0); SEGMENTED NEUTROPHILS % (AUTO) 70.6 % (42-78); TOTAL CELLS COUNTED % (AUTO) 100 %; WHITE BLOOD COUNT 5.4 10^3/uL (4.0-10.5)
[2018-02-20 06:36] LABS: ANION GAP 9 (5-19); BLOOD UREA NITROGEN 29 mg/dL (7-20); CALCIUM 8.7 mg/dL (8.4-10.2); CARBON DIOXIDE 26 mmol/L (22-30); CHLORIDE 109 mmol/L (98-107); GLUCOSE 104 mg/dL (75-110); POTASSIUM 4.4 mmol/L (3.6-5.0); SODIUM 144.4 mmol/L (137-145)
[2018-02-20] MEDS: PANTOPRAZOLE SODIUM 40 MG VIAL IV SCH ×2 (09:58→22:24)
[2018-02-20] MEDS: CARVEDILOL 6.25 MG TABLET PO SCH ×2 (09:59→22:22)
[2018-02-20] MEDS: COLCHICINE 0.6 MG TABLET PO SCH (09:59)
[2018-02-20] MEDS: LOSARTAN POTASSIUM 50 MG TABLET PO SCH (09:59)
[2018-02-20] MEDS: GABAPENTIN 400 MG CAPSULE PO SCH ×2 (09:59→22:23)
[2018-02-20] MEDS: BUMETANIDE 1 MG TABLET PO SCH (09:59)
--- NOTE | 2018-02-20 13:36 | PDOC PROGRESS REPORT ---
Subjective Progress Note for:: 02/20/18 Subjective:: admitted with anemia and GI bleeding. EGD -Duodenal AVM as likely cause for the patient's recent bleed as well as anemia status post cauterization Patient complains of vague abdominal pain but no active bleeding. Her hemoglobin remained stable Reason For Visit: GI BLEEDING Physical Exam Vital Signs: Temp Pulse Resp BP Pulse Ox 98.8 F 65 17 164/50 H 97 02/20/18 12:15 02/20/18 12:15 02/20/18 12:15 02/20/18 12:15 02/20/18 12:15 Intake & Output 02/19/18 02/20/18 02/21/18 06:59 06:59 06:59 Intake Total 627 877 474 Output Total 0 Balance 627 877 474 General appearance: PRESENT: no acute distress Head exam: PRESENT: atraumatic Eye exam: PRESENT: conjunctiva pale, PERRLA Neck exam: ABSENT: carotid bruit, JVD, lymphadenopathy, thyromegaly Respiratory exam: PRESENT: clear to auscultation kaylee. ABSENT: rales, rhonchi, wheezes Cardiovascular exam: PRESENT: +S1, +S2 Pulses: PRESENT: normal dorsalis pedis pul GI/Abdominal exam: PRESENT: normal bowel sounds, soft. ABSENT: distended, guarding, mass, organolmegaly, rebound, tenderness Neurological exam: PRESENT: alert, awake, oriented to person, oriented to place , oriented to time, oriented to situation, CN II-XII grossly intact. ABSENT: motor sensory deficit Results Laboratory Results: 02/20/18 05:19 02/20/18 05:19 02/20/18 02/20/18 05:19 05:19 WBC 5.4 RBC 3.12 L Hgb 8.6 L Hct 26.9 L MCV 86 MCH 27.6 MCHC 32.0 RDW 16.7 H Plt Count 311 Seg Neutrophils % 70.6 Lymphocytes % 17.6 Monocytes % 8.7 Eosinophils % 1.7 Basophils % 1.4 Absolute Neutrophils 3.8 Absolute Lymphocytes 0.9 Absolute Monocytes 0.5 Absolute Eosinophils 0.1 Absolute Basophils 0.1 Sodium 144.4 Potassium 4.4 Chloride 109 H Carbon Dioxide 26 Anion Gap 9 BUN 29 H Creatinine 1.24 Est GFR ( Amer) 50 L Est GFR (Non-Af Amer) 42 L Glucose 104 Calcium 8.7 Assessment & Plan - Diagnosis (1) Acute renal failure superimposed on stage 3 chronic kidney disease Is this a current diagnosis for this admission?: Yes Plan: Kidney function continues to improve (2) Blood loss anemia Is this a current diagnosis for this admission?: Yes Plan: Likely secondary to AVM. Hemoglobin remains stable (3) CHF (congestive heart failure) Qualifiers: Heart failure chronicity: chronic Is this a current diagnosis for this admission?: Yes Plan: Precise details of CHF unknown. Patient is currently stable and euvolemic (4) Coronary artery disease Qualifiers: Coronary Disease-Associated Artery/Lesion type: unspecified vessel or lesion type Associated angina: without angina Is this a current diagnosis for this admission?: Yes (5) Diabetes mellitus type 2 in obese Is this a current diagnosis for this admission?: Yes Plan: We will continue with sliding scale insulin (6) GI bleed Qualifiers: GI bleed type/associated pathology: unspecified gastrointestinal hemorrhage type Qualified Code(s): K92.2 - Gastrointestinal hemorrhage, unspecified Is this a current diagnosis for this admission?: Yes Plan: This has remained stable - Time Time Spent with patient: 15-24 minutes Medications reviewed and adjusted accordingly: Yes Anticipated discharge: Acute Rehab Within: when bed available - Inpatient Certification Based on my medical assessment, after consideration of the patient's comorbidities, presenting symptoms, or acuity I expect that the services needed warrant INPATIENT care.: Yes Medical Necessity: Need Close Monitoring Due to Risk of Patient Decompensation - Plan Summary Plan Summary: Patient is medically ready for discharge however she has some living situation ironed out and discharge planning is working this
[2018-02-20] MEDS: FENOFIBRATE NANOCRYSTALLIZED 145 MG TABLET PO SCH (18:30)
[2018-02-20] MEDS: INSULIN GLARGINE,HUM.REC.ANLOG 300 UNIT/3 ML INSULN.PEN SUBCUT SCH (22:23)
[2018-02-20] MEDS: ATORVASTATIN CALCIUM 20 MG TABLET PO SCH (22:23)
[2018-02-21 05:30] LABS: ABSOLUTE EOSINOPHILS # (AUTO) 0.1 10^3/uL (0.0-0.6); ABSOLUTE LYMPHOCYTES (AUTO) 0.8 10^3/uL (0.5-4.7); ABSOLUTE MONOCYTES (AUTO) 0.5 10^3/uL (0.1-1.4); ABSOLUTE NEUT (AUTO) 3.4 10^3/uL (1.7-8.2); BASOPHILS % (AUTO) 0.8 % (0-2); EOSINOPHILS % (AUTO) 1.7 % (0-6); HEMATOCRIT 26.4 % (36.0-47.0); HEMOGLOBIN 8.6 g/dL (12.0-15.5); LYMPHOCYTES % (AUTO) 17.1 % (13-45); MEAN CORPUSCULAR HEMOGLOBIN 27.7 pg (27.0-33.4); MEAN CORPUSCULAR HGB CONC 32.5 g/dL (32.0-36.0); MEAN CORPUSCULAR VOLUME 85 fl (80-97); MONOCYTES % (AUTO) 10.7 % (3-13); PLATELET COUNT 296 10^3/uL (150-450); RED BLOOD COUNT 3.09 10^6/uL (3.72-5.28); RED CELL DISTRIBUTION WIDTH 16.6 % (11.5-14.0); SEGMENTED NEUTROPHILS % (AUTO) 69.7 % (42-78); TOTAL CELLS COUNTED % (AUTO) 100 %; WHITE BLOOD COUNT 4.9 10^3/uL (4.0-10.5)
[2018-02-21 05:49] LABS: ANION GAP 11 (5-19); BLOOD UREA NITROGEN 31 mg/dL (7-20); CALCIUM 8.8 mg/dL (8.4-10.2); CARBON DIOXIDE 28 mmol/L (22-30); CHLORIDE 106 mmol/L (98-107); GLUCOSE 126 mg/dL (75-110); POTASSIUM 4.1 mmol/L (3.6-5.0); SODIUM 144.6 mmol/L (137-145)
[2018-02-21] MEDS: BUMETANIDE 1 MG TABLET PO SCH (10:24)
[2018-02-21] MEDS: LOSARTAN POTASSIUM 50 MG TABLET PO SCH (10:24)
[2018-02-21] MEDS: CARVEDILOL 6.25 MG TABLET PO SCH (10:24)
[2018-02-21] MEDS: GABAPENTIN 400 MG CAPSULE PO SCH (10:24)
[2018-02-21] MEDS: COLCHICINE 0.6 MG TABLET PO SCH (10:24)
--- NOTE | 2018-02-21 10:26 | PDOC DISCHARGE SUMMARY ---
General - Admit/Disc Date/PCP Admission Date/Primary Care Provider: 02/17/18 23:48 TAVARES GONZALEZ, DO Discharge Date: 02/21/18 - Discharge Diagnosis (1) GI bleed Is this a current diagnosis for this admission?: Yes (2) Blood loss anemia Is this a current diagnosis for this admission?: Yes (3) Acute renal failure superimposed on stage 3 chronic kidney disease Is this a current diagnosis for this admission?: Yes (4) CHF (congestive heart failure) Is this a current diagnosis for this admission?: Yes Summary: This is chronic, details unknown but patient is euvolemic (5) Coronary artery disease Is this a current diagnosis for this admission?: Yes (6) Diabetes mellitus type 2 in obese Is this a current diagnosis for this admission?: Yes Summary: Relatively well controlled on the current regimen (7) Hypertension Is this a current diagnosis for this admission?: Yes - Additional Information Resuscitation Status: Full Code Discharge Diet: Cardiac Discharge Activity: Activity As Tolerated Home Medications: Albuterol Sulfate [Ventolin Hfa] 2 puff IH Q4HP PRN 02/18/18 Apremilast [Otezla] 30 mg PO BID 02/18/18 Atorvastatin Calcium [Lipitor 20 mg Tablet] 20 mg PO QHS 02/18/18 Bumetanide [Bumex 1 mg Tablet] 1 mg PO DAILY 02/18/18 Carvedilol [Coreg 6.25 mg Tablet] 6.25 mg PO Q12 02/18/18 Colchicine [Colcrys 0.6 mg Tablet] 0.6 mg PO DAILY 02/18/18 Fenofibrate Nanocrystallized [Triglide] 160 mg PO DAILY 02/18/18 Gabapentin [Neurontin 400 mg Capsule] 400 mg PO Q12 02/18/18 Insulin Glargine,Hum.rec.anlog [Lantus Solostar] 10 units SQ QHS 02/18/18 Losartan Potassium [Cozaar 50 mg Tablet] 50 mg PO DAILY 02/18/18 Pantoprazole Sodium [Protonix] 40 mg PO DAILY 02/18/18 Ferrous Sulfate [Feosol 325 mg Tablet] 325 mg PO BIDPCBS tablet 02/21/18 History of Present Illness History of Present Illness: PREETI ELIZABETH is a 77 year old female PREETI ELIZABETH is a 77 year old female with history of anemia who comes to the emergency department sent by her PCP for a blood transfusion. Her friend who is at the bedside tells me she was hospitalized recently at [facility] and discharged to a rehab facility improved her frequent falls, discharge from the facility last Friday and is staying with her friend. One day ago the patient fell from the bed having an excoriation with peeling of her skin in her left upper extremity, reason for which they went to her primary care physician, laboratory was done and her hemoglobin was recorded to be 5.5 with a hematocrit of 20, sent to the ED. She has been feeling weak since her discharge from rehab. Tells me she is having shortness of breath and some chest pressure but she is not sure if that is new or not. Tells me she has black stools for the last 2 or 3 months when she has started taking iron pills, 2 large bowel movements and to a small during the day Hospital Course Hospital Course: Patient was admitted with anemia with hemoglobin of five-point for 5.5. She had falling the day before. She was transfused with 2 units of packed red blood cells and her hemoglobin has been relatively stable currently at 8.6. She was also found to be iron deficient and has been started on iron orally. She was seen by recreation worker and had an EGD performed which revealed duodenal AVM which was ablated in situ. She had gastritis which is also biopsied to rule out Helicobacter. Duodenal AVM is felt to be likely because of recent GI bleed. Patient has since remained hemodynamically stable however she appeared to be weak and physically and will benefit from rehab so she is been sent to inpatient acute rehab. Outpatient follow-up with her primary care physician for evaluation of her hemoglobin and further referral to GI as indicated is suggested Physical Exam Vital Signs: Temp Pulse Resp BP Pulse Ox 97.8 F 58 L 18 148/41 H 94 02/21/18 08:00 02/21/18 08:00 02/21/18 08:00 02/21/18 08:00 02/21/18 08:00 Intake & Output 02/20/18 02/21/18 02/22/18 06:59 06:59 06:59 Intake Total 877 711 Output Total 0 Balance 877 711 General appearance: PRESENT: no acute distress, well-developed, well-nourished Head exam: PRESENT: atraumatic Eye exam: PRESENT: conjunctiva pale Mouth exam: PRESENT: moist, tongue midline Neck exam: ABSENT: carotid bruit, JVD, lymphadenopathy, thyromegaly Cardiovascular exam: PRESENT: RRR, +S1, +S2. ABSENT: diastolic murmur, rubs, systolic murmur GI/Abdominal exam: PRESENT: normal bowel sounds, soft. ABSENT: distended, guarding, mass, organolmegaly, rebound, tenderness Rectal exam: PRESENT: deferred Extremities exam: PRESENT: full ROM. ABSENT: calf tenderness, clubbing, pedal edema Neurological exam: PRESENT: alert, awake, oriented to person, oriented to place , oriented to time, oriented to situation, CN II-XII grossly intact. ABSENT: motor sensory deficit Results Laboratory Results: 02/21/18 04:42 02/21/18 04:42 02/21/18 02/21/18 04:42 04:42 WBC 4.9 RBC 3.09 L Hgb 8.6 L Hct 26.4 L MCV 85 MCH 27.7 MCHC 32.5 RDW 16.6 H Plt Count 296 Seg Neutrophils % 69.7 Lymphocytes % 17.1 Monocytes % 10.7 Eosinophils % 1.7 Basophils % 0.8 Absolute Neutrophils 3.4 Absolute Lymphocytes 0.8 Absolute Monocytes 0.5 Absolute Eosinophils 0.1 Absolute Basophils 0.0 Sodium 144.6 Potassium 4.1 Chloride 106 Carbon Dioxide 28 Anion Gap 11 BUN 31 H Creatinine 1.34 H Est GFR ( Amer) 46 L Est GFR (Non-Af Amer) 38 L Glucose 126 H Calcium 8.8 Qualifiers - * PATIENT BEING DISCHARGED WITH ANY OF THE FOLLOWING DIAGNOSIS: No, Heart Failure HF Pt being discharged on ACEI for LVEF less than 40%?: No Reason(s) for not prescribing ACEI:: Medical Contraindication HF Pt being discharged on ARBS for LVEF less than 40%?: Yes HF Pt with Afib discharged with Warfarin?: Yes HF Pt discharged on evidence-based Beta [place]:: Yes Plan Time Spent: Greater than 30 Minutes
[2018-02-21 12:13] VITALS: BP 122/39
[2018-02-21] MEDS ORDERED: FERROUS SULFATE 325 MG TABLET PO SCH (18:00)
== END 2018-02-21 12:49 | DRG 378 ==
LOC: ER 18:08 → EH 23:48 → 3W 02-18 15:49
PROVIDERS: ADMIT Internal Medicine; ATTEND Internal Medicine
PROC: 30233N1 Transfusion of Nonautologous Red Blood Cells into Peripheral Vein, Percutaneous Approach (ICD-10-PCS; 2018-02-17)
PROC: 0W3P8ZZ Control Bleeding in Gastrointestinal Tract, Via Natural or Artificial Opening Endoscopic (ICD-10-PCS; principal; 2018-02-18 12:00)
PROC: 0DB68ZX Excision of Stomach, Via Natural or Artificial Opening Endoscopic, Diagnostic (ICD-10-PCS; 2018-02-18 12:00)
DX: K55.21 Angiodysplasia of colon with hemorrhage (principal); D62 Acute posthemorrhagic anemia; I13.0 Hypertensive heart and chronic kidney disease with heart failure and stage 1 through stage 4 chronic kidney disease, or unspecified chronic kidney disease; N17.9 Acute kidney failure, unspecified; K29.70 Gastritis, unspecified, without bleeding; E66.9 Obesity, unspecified; E11.22 Type 2 diabetes mellitus with diabetic chronic kidney disease; N18.3 Chronic kidney disease, stage 3 (moderate); I50.9 Heart failure, unspecified; I25.10 Atherosclerotic heart disease of native coronary artery without angina pectoris; E61.1 Iron deficiency; L40.9 Psoriasis, unspecified; M06.9 Rheumatoid arthritis, unspecified; K21.9 Gastro-esophageal reflux disease without esophagitis; E87.5 Hyperkalemia; Z95.5 Presence of coronary angioplasty implant and graft; Z91.81 History of falling; Z79.02 Long term (current) use of antithrombotics/antiplatelets; Z80.0 Family history of malignant neoplasm of digestive organs; Z88.8 Allergy status to other drugs, medicaments and biological substances; Z79.899 Other long term (current) drug therapy; Z79.52 Long term (current) use of systemic steroids; Z79.4 Long term (current) use of insulin; Z87.891 Personal history of nicotine dependence
CPT/HCPCS: 36415; 36430; 43239; 43270; 731; 80048; 80053; 82272; 82607; 82728; 82746; 82962; 83540; 83550; 83735; 84100; 84207; 84443; 84484; 85025; 85027; 85045; 85610; 85730; 86850; 86900; 86901; 86920; 88305; 88342; 93005; 93010; 96374; 99284; J1815; J1940; J2704; J3490; J7050; P9016; S0164

== ENCOUNTER → 2018-08-14 | Outpatient (CLI) | payer MEDICARE, MEDICAID | LOC: CRS 12:26 | PROVIDERS: ATTEND Family Medicine Geriatric Medicine | DX: I11.0 Hypertensive heart disease with heart failure (principal); I50.9 Heart failure, unspecified; I25.10 Atherosclerotic heart disease of native coronary artery without angina pectoris; K21.9 Gastro-esophageal reflux disease without esophagitis; M10.9 Gout, unspecified | CPT/HCPCS: 84436 ==

== ENCOUNTER 2018-10-18 21:48 | Inpatient (IN) | payer MEDICARE, MEDICAID ==
[2018-10-18] MEDS ORDERED: DILTIAZEM HCL/D5W 125 MG/125 ML RTUINJ IV ONE (21:59)
[2018-10-18] MEDS ORDERED: DILTIAZEM HCL/D5W 125 MG/125 ML RTUINJ IV PRN (22:03)
--- NOTE | 2018-10-18 22:05 | ER Document Report ---
ED General - General Stated Complaint: CHEST PAIN Time Seen by Provider: 10/18/18 22:02 Cannot obtain history due to: Unstable vital signs Notes: Patient is an 78-year-old female with past medical history of hypertension, hyperlipidemia, congestive heart failure, presents with palpitations, chest discomfort, and shortness of breath. Patient is unable to provide significant history at time of presentation secondary to respiratory distress and hemodynamic instability. EMS reports that the patient had complained of a relatively abrupt onset of chest discomfort while at [facility] for rehab. She was noted to have tachycardia. EMS was contacted. Patient was complaining of pain to her lower chest that was a throbbing, burning pain. This apparently resolved after receiving one sublingual nitroglycerin by EMS. Patient is uncertain of whether or not she has had similar symptoms in the past although EMS does note that she has no known previous history of atrial fibrillation. Currently the patient denies any ongoing chest pain but states that she does feel very short of breath. Nothing seems to improve or worsen her current symptoms. TRAVEL OUTSIDE OF THE [place] IN LAST 30 DAYS: No - Related Data Allergies/Adverse Reactions: methotrexate [Methotrexate] Allergy (Verified 02/18/18 09:31) Penicillins Allergy (Verified 02/18/18 09:31) Past Medical History - General Information source: Patient, Emergency Med Personnel Cannot obtain history due to: Unstable vital signs - Social History Smoking Status: Former Smoker Frequency of alcohol use: None Drug Abuse: None Lives with: [facility] Family History: Reviewed & Not Pertinent - Past Medical History Cardiac Medical History: Reports: Hx Congestive Heart Failure, Hx Coronary Artery Disease - With 2 stents in the past, Hx Hypercholesterolemia, Hx Hypertension Pulmonary Medical History: Denies: Hx Tuberculosis Endocrine Medical History: Reports: Hx Diabetes Mellitus Type 2 Renal/ Medical History: Denies: Hx Peritoneal Dialysis GI Medical History: Reports: Hx Gastroesophageal Reflux Disease Skin Medical History: Reports Hx Psoriasis Past Surgical History: Reports: Hx Cardiac Catheterization, Hx Herniorrhaphy. Denies: Hx Pacemaker - Immunizations Hx Diphtheria, Pertussis, Tetanus Vaccination: No Review of Systems - Review of Systems Notes: Constitutional: Negative for fever. HENT: Negative for sore throat. Eyes: Negative for visual changes. Cardiovascular: Positive for chest pain and palpitations Respiratory: Positive for shortness of breath. Gastrointestinal: Negative for abdominal pain, vomiting or diarrhea. Genitourinary: Negative for dysuria. Musculoskeletal: Negative for back pain. Skin: Negative for rash. Neurological: Negative for headaches, weakness or numbness. 10 point ROS negative except as marked above and in HPI. Physical Exam - Vital signs Vitals: Temp Pulse Resp BP Pulse Ox 100.4 F 127 H 27 H 117/70 95 10/18/18 21:48 10/18/18 21:48 10/18/18 21:48 10/18/18 21:48 10/18/18 21:48 Interpretation: Tachycardic, Hypoxic, Tachypneic Notes: PHYSICAL EXAMINATION: GENERAL: Appears unwell, in moderate respiratory distress. HEAD: Atraumatic, normocephalic. EYES: Pupils equal round and reactive to light, extraocular movements intact, sclera anicteric, conjunctiva are normal. ENT: nares patent, oropharynx clear without exudates. Moderately dry mucous membranes. NECK: Normal range of motion, supple without lymphadenopathy LUNGS: Tachypnea, moderate respiratory distress. Faint expiratory wheezing. No B-lines on pleural ultrasound. HEART: Irregular regular tachycardia without murmurs ABDOMEN: Soft, nontender, normoactive bowel sounds. No guarding, no rebound. No masses appreciated. EXTREMITIES: Normal range of motion, trace edema in the bilateral lower extremities that is equal and symmetric. No cyanosis. NEUROLOGICAL: No focal neurological deficits. Moves all extremities spontaneously and on command. PSYCH: Normal mood, normal affect. SKIN: Warm, Dry, normal turgor, no rashes or lesions noted. Course - Re-evaluation Re-evalutation: 10/18/18 22:04 Patient presents with A. fib with rapid ventricular response with associated chest pain, moderate respiratory distress. Patient is saturating 89% on room air, does not normally have an oxygen dependency. Noted to be in new onset A. fib with RVR rates in the 140s-150s range. No hypotension. Patient was immediately assessed upon arrival by EMS. Has received aspirin and nitroglycerin. Bedside ultrasound does not demonstrate any evidence of pul monary edema. Bedside echocardiogram shows an irregular rate, diffuse global dyskinesia. No regional wall motion of normality, no evidence of pericardial effusion or tamponade. EKG shows A. fib with rapid ventricular response without ischemic changes. Patient was noted to be breathing approximate 35 times per minute, unable to speak in full sentence. Had coarse wheezing and rales throughout. BiPAP will be applied to decrease her work of breathing and prevent worsening respiratory distress. Given the patient's advanced age, will not provide a bolus of diltiazem but will instead initiate a drip at 10 mg/h for rate control. Will fluid restrict at this point given history of CHF and conc darius for patient already becoming volume overloaded in the context of new onset A. fib with a history of CHF. Patient is in guarded condition, will be reassessed at regular intervals. 10/18/18 22:36 Patient's work of breathing is improving on BiPAP, now 100% on 40% FiO2. Patient's heart rate does remain for 120s 130s although blood pressures are holding steady. Will give a 5 mg bolus, drip at 15. Will continue to reassess at regular intervals. 10/18/18 23:41 Patient's rate is much improved currently at 114, 100% on 40% FiO2. Blood pressures remain in the 90 systolic. Will continue to monitor closely. I have discussed with the hospitalist on-call who has accepted this patient for admiss ion to the [facility] - Vital Signs Vital signs: Temp Pulse Resp BP Pulse Ox 98.5 F 76 24 H 87/49 L 89 L 10/19/18 02:39 10/19/18 03:08 10/19/18 02:39 10/19/18 03:06 10/19/18 03:08 - Laboratory Result Diagrams: 10/18/18 22:01 10/18/18 22:01 Laboratory results interpreted by me: 10/18/18 10/18/18 10/18/18 22:01 22:01 22:01 WBC 12.0 H RBC 2.86 L Hgb 8.5 L Hct 25.9 L RDW 19.1 H Seg Neuts % (Manual) 91 H Lymphocytes % (Manual) 5 L Abs Neuts (Manual) 10.9 H BUN 63 H Creatinine 1.47 H Est GFR ( Amer) 41 L Est GFR (Non-Af Amer) 34 L Glucose 249 H AST 37 H Alkaline Phosphatase 157 H NT-Pro-B Natriuret Pep 6020 H Total Protein 5.9 L Albumin 3.1 L TSH 10/18/18 22:01 WBC RBC Hgb Hct RDW Seg Neuts % (Manual) Lymphocytes % (Manual) Abs Neuts (Manual) BUN Creatinine Est GFR ( Amer) Est GFR (Non-Af Amer) Glucose AST Alkaline Phosphatase NT-Pro-B Natriuret Pep Total Protein Albumin TSH 4.83 H - Diagnostic Test Radiology reviewed: Image reviewed, Reports reviewed Radiology results interpreted by me: 10/18/18 23:42 Chest x-ray: No acute infiltrate pneumothorax - EKG Interpretation by Me Additional EKG results interpreted by me: 10/19/18 03:34 Atrial fibrillation with rapid ventricular response. Rate averaging 135. LVH. QTC 450. No ST changes suggestive of ischemia. Critical Care Note - Critical Care Note Total time excluding time spent on procedures (mins): 40 Comments: Critical care time spent obtaining history from patient or surrogate, discussions with consultants, development of treatment plan with patient or surrogate, evaluation of patient's response to treatment, examination of patient, ordering and performing treatments and interventions, ordering and review of laboratory studies, re-evaluation of patient's condition, ordering and review of radiographic studies and review of old charts Discharge - Discharge Clinical Impression: Atrial fibrillation with rapid ventricular response, Respiratory distress, Hypoxemia Congestive heart failure Qualifiers: Heart failure type: unspecified Heart failure chronicity: acute on chronic Qualified Code(s): I50.9 - Heart failure, unspecified Condition: Fair Disposition: ADMITTED INPATIENT Admitting Provider: Hospitalist Unit Admitted: [facility]
[2018-10-18 22:18] LABS: HEMATOCRIT 25.9 % (36.0-47.0); HEMOGLOBIN 8.5 g/dL (12.0-15.5); MEAN CORPUSCULAR HEMOGLOBIN 29.8 pg (27.0-33.4); MEAN CORPUSCULAR HGB CONC 32.8 g/dL (32.0-36.0); MEAN CORPUSCULAR VOLUME 91 fl (80-97); PLATELET COUNT 166 10^3/uL (150-450); RED BLOOD COUNT 2.86 10^6/uL (3.72-5.28); RED CELL DISTRIBUTION WIDTH 19.1 % (11.5-14.0)
[2018-10-18 22:30] LABS: ALANINE AMINOTRANSFERASE 37 U/L (9-52); ALBUMIN 3.1 g/dL (3.5-5.0); ALKALINE PHOSPHATASE 157 U/L (38-126); ANION GAP 10 (5-19); ASPARTATE AMINO TRANSFERASE 37 U/L (14-36); BILIRUBIN,DIRECT 0.3 mg/dL (0.0-0.4); BILIRUBIN,TOTAL 0.6 mg/dL (0.2-1.3); BLOOD UREA NITROGEN 63 mg/dL (7-20); CALCIUM 8.8 mg/dL (8.4-10.2); CARBON DIOXIDE 25 mmol/L (22-30); CHLORIDE 103 mmol/L (98-107); GLUCOSE 249 mg/dL (75-110); SODIUM 138.1 mmol/L (137-145); TOTAL PROTEIN 5.9 g/dL (6.3-8.2)
[2018-10-18] MEDS ORDERED: DILTIAZEM HCL INJ 25 MG/5 ML VIAL IV ONE (22:36)
[2018-10-18 22:38] LABS: ABSOLUTE LYMPHOCYTES# (MANUAL) 0.6 10^3/uL (0.5-4.7); ABSOLUTE MONOCYTES # (MANUAL) 0.5 10^3/uL (0.1-1.4); ABSOLUTE NEUTROPHILS# (MANUAL) 10.9 10^3/uL (1.7-8.2); BASOPHILS % (MANUAL) 0 % (0-2); EOSINOPHILS % (MANUAL) 0 % (0-6); LYMPHOCYTES % (MANUAL) 5 % (13-45); MONOCYTES % (MANUAL) 4 % (3-13); SEGMENTED NEUTROPHILS % (MAN) 91 % (42-78); TOTAL CELLS COUNTED 100
[2018-10-18 22:41] LABS: PLATELET COMMENT ADEQUATE
[2018-10-18 22:43] LABS: HYPOCHROMASIA SLIGHT; TROPONIN I 0.05 ng/mL
[2018-10-18 22:44] LABS: ANISOCYTOSIS 2+; TEAR DROP CELLS 1+
--- NOTE | 2018-10-18 22:55 | RADIOLOGY REPORT (SQ) ---
EXAM DESCRIPTION: XR CHEST 1 VIEW COMPLETED DATE/TME: 10/18/2018 22:02 CLINICAL HISTORY: 78 years, Female, sob, cp COMPARISON: 10/09/2013 chest NUMBER OF VIEWS: 1 TECHNIQUE: Portable chest LIMITATIONS: None. FINDINGS: Cardiomegaly. Lungs are clear. No pneumothorax. Atheromatous change IMPRESSION: Cardiomegaly. Lungs are clear copyright 2010 [employer]- All Rights Reserved
[2018-10-18] MEDS ORDERED: ACETAMINOPHEN 650 MG SUPP.RECT PR PRN (23:50)
[2018-10-18] MEDS ORDERED: ZOLPIDEM TARTRATE 5 MG TABLET PO PRN (23:50)
[2018-10-18] MEDS ORDERED: ONDANSETRON HCL INJ/PF 4 MG/2 ML SDV IV PRN (23:50)
[2018-10-18] MEDS ORDERED: MAGNESIUM HYDROXIDE SUSP 30 ML UDCUP PO PRN (23:50)
[2018-10-18] MEDS ORDERED: ACETAMINOPHEN 325 MG TABLET PO PRN (23:50)
[2018-10-18] MEDS ORDERED: ALBUTEROL SULFATE HFA (90 MCG/PUFF) 8 GM MDI (1 MDI/ER DISP) IH PRN (23:57)
--- NOTE | 2018-10-19 00:11 | EKG REPORT ---
SEVERITY:- ABNORMAL ECG - ATRIAL FIBRILLATION PROBABLE LVH WITH SECONDARY REPOL ABNRM PROBABLE INFERIOR INFARCT, OLD ANTERIOR Q WAVES, POSSIBLY DUE TO LVH : Confirmed by: Cathryn Lopez 19-Oct-2018 00:10:48
[2018-10-19] MEDS ORDERED: DIGOXIN INJ 0.5 MG/2 ML AMPULE IV ONE (00:17)
[2018-10-19] MEDS ORDERED: INSULIN GLARGINE,HUM.REC.ANLOG 1,000 UNIT/10 ML VIAL (PYX) SUBCUT PRN ×2 (00:20→22:08)
[2018-10-19] MEDS ORDERED: ALBUTEROL SULFATE HFA (90 MCG/PUFF) 8 GM MDI (1 MDI/ER DISP) IH PRN (00:30)
[2018-10-19] MEDS ORDERED: CARVEDILOL 6.25 MG TABLET PO ONE (01:00)
[2018-10-19] MEDS ORDERED: INSULIN GLARGINE,HUM.REC.ANLOG 1,000 UNIT/10 ML VIAL SUBCUT ONE ×2 (01:00→22:30)
[2018-10-19] MEDS ORDERED: GABAPENTIN 400 MG CAPSULE PO ONE (01:00)
[2018-10-19] MEDS ORDERED: ATORVASTATIN CALCIUM 20 MG TABLET PO ONE (01:00)
[2018-10-19] MEDS ORDERED: GLUCAGON,HUMAN RECOMB 1 MG INJ IM PRN (01:38)
[2018-10-19] MEDS ORDERED: DEXTROSE 50%-WATER 25 GM/50 ML DISP.SYRIN IV PRN ×2 (01:38)
[2018-10-19] MEDS ORDERED: DEXTROSE 40% GEL 15 GM TUBE PO PRN ×2 (01:38)
--- NOTE | 2018-10-19 01:58 | PDOC H&P ---
History of Present Illness Admission Date/PCP: 10/18/18 23:55 ADAM ROY MD Patient complains of: Chest pain, palpationS History of Present Illness: PREETI ELIZABETH is a 78 year old female with history of multiple medical problems that will be mentioned below who presented to the emergency room with acute onset of substernal chest pain with associated palpitations as well as dyspnea with recent cough productive of whitish sputum as well as wheezing. She denies any fever or chills. She admits to lower extremity edema and mild orthopnea. No nausea vomiting or abdominal pain. No fever or chills. No headache or dizziness of blurred vision. No bleeding diathesis. Upon presentation to the emergency room her heart rate was 127 and has been as h igh as 140-150 and temperature 100.4 with respiratory to 27 and pulse oximetry 95% on 2 L O2 by nasal cannula that later dropped to 90%. She was later and significant history of stress and had to be placed on BiPAP. Her EKG showed atrial fibrillation with rapid ventricular response of 135 with T wave inversion laterally and Q waves inferiorly as well as anteriorly. Her labs revealed anemia posterior baseline with a hemoglobin of 8.5 hematocrit of 25.9, mild leukocytosis of 12 with neutrophilia and platelets of 166 her CMP was remarkable for a borderline potassium of 5, BUN of 63 and creatinine 1.47 with blood glucose of 249 and alk phos 157. Her proBNP was 6020 and TSH was 4.83 with tota l protein of 5.9 albumin 3.1. Portable chest x-ray reveals cardiomegaly with otherwise clear lungs. The patient was given IV Cardizem drip initially without significant help with her rate after which was given 5 mg IV bolus followed by IV drip at 10 mg/h with significant improvement of heart rate to 112. Her blood pressure dropped down to 98/75 with a map of 76. She will be admitted to an IMCU bed for further evaluation and management. Past Medical History Cardiac Medical History: Reports: Congestive Heart Failure, Coronary Artery Disease - With 2 stents in the past, Hyperlipidema, Hypertension Pulmonary Medical History: Denies: Tuberculosis Endocrine Medical History: Reports: Diabetes Mellitus Type 2 GI Medical History: Reports: Gastroesophageal Reflux Disease Skin Medical History: Reports: Psoriasis Past Surgical History Past Surgical History: Reports: Cardiac Catheterization - With PCI and 2 stents, Herniorrhaphy Denies: Pacemaker Social History Smoking Status: Never Smoker Frequency of Alcohol Use: None Hx Recreational Drug Use: No Drugs: None Hx Prescription Drug Abuse: No Family History Family History: CAD - Both parents had HI Parental Family History Reviewed: Yes Children Family History Reviewed: Yes Sibling(s) Family History Reviewed.: Yes Medication/Allergy Home Medications: Albuterol Sulfate [Ventolin Hfa] 2 puff IH Q4HP PRN 02/18/18 Apremilast [Otezla] 30 mg PO BID 02/18/18 Atorvastatin Calcium [Lipitor 20 mg Tablet] 20 mg PO QHS 02/18/18 Bumetanide [Bumex 1 mg Tablet] 1 mg PO DAILY 02/18/18 Carvedilol [Coreg 6.25 mg Tablet] 6.25 mg PO Q12 02/18/18 Colchicine [Colcrys 0.6 mg Tablet] 0.6 mg PO DAILY 02/18/18 Fenofibrate Nanocrystallized [Triglide] 160 mg PO DAILY 02/18/18 Gabapentin [Neurontin 400 mg Capsule] 400 mg PO Q12 02/18/18 Insulin Glargine,Hum.rec.anlog [Lantus Solostar] 10 units SQ QHS 02/18/18 Losartan Potassium [Cozaar 50 mg Tablet] 50 mg PO DAILY 02/18/18 Pantoprazole Sodium [Protonix] 40 mg PO DAILY 02/18/18 Ferrous Sulfate [Feosol 325 mg Tablet] 325 mg PO BIDPCBS tablet 02/21/18 Allergies/Adverse Reactions: methotrexate [Methotrexate] Allergy (Verified 02/18/18 09:31) Penicillins Allergy (Verified 02/18/18 09:31) Review of Systems Review of Systems: As per history of present illness. All pertinent systems were reviewed above. Constitutional, HEENT, cardiovascular, respiratory, GI, , musculoskeletal, neuro, psychiatric, endocrine, integumentary and hematologic systems were reviewed and are otherwise negative/unremarkable except for positive findings mentioned above in the HPI. Physical Exam Vital Signs: Temp Pulse Resp BP Pulse Ox 100.4 F 127 H 19 91/62 L 100 10/18/18 21:48 10/18/18 21:48 10/19/18 00:11 10/19/18 00:11 10/19/18 00:11 Intake & Output 10/17/18 10/18/18 10/19/18 06:59 06:59 06:59 Intake Total 29 Balance 29 Exam: Generally: Pleasant elderly female in mild respiratory distress on BiPAP Vital signs-as listed Head - atraumatic, normocephalic. Pupils - equal, round and reactive to light and accommodation. Extraocular movements are intact. No scleral icterus. Oropharynx - moist mucous membranes and tongue. No pharyngeal erythema or exudate. Neck - supple. No JVD. Carotid pulses 2+ bilaterally. No carotid bruits. No palpable thyromegaly or lymphadenopathy. Cardiovascular - regular rate and rhythm. Normal S1 and S2. No murmurs, gallops or rubs. Lungs - clear to auscultation bilaterally except for diminished bibasilar breath sounds. Abdomen - soft and nontender. Positive bowel sounds. No palpable organomegaly or masses. Extremities -1+ bilateral lower extremity pitting edema, with no clubbing or cyanosis. Neuro - grossly non-focal. Skin - no rashes. Breast, pelvic and rectal - deferred Results Laboratory Results: 10/18/18 22:01 10/18/18 22:01 10/18/18 10/18/18 10/18/18 22:01 22:01 22:01 WBC 12.0 H RBC 2.86 L Hgb 8.5 L Hct 25.9 L MCV 91 MCH 29.8 MCHC 32.8 RDW 19.1 H Plt Count 166 Seg Neutrophils % Not Reportable Lymphocytes % Not Reportable Monocytes % Not Reportable Eosinophils % Not Reportable Basophils % Not Reportable Absolute Neutrophils Not Reportable Absolute Lymphocytes Not Reportable Absolute Monocytes Not Reportable Absolute Eosinophils Not Reportable Absolute Basophils Not Reportable Sodium 138.1 Potassium 5.0 Chloride 103 Carbon Dioxide 25 Anion Gap 10 BUN 63 H Creatinine 1.47 H Est GFR ( Amer) 41 L Est GFR (Non-Af Amer) 34 L Glucose 249 H Calcium 8.8 Total Bilirubin 0.6 AST 37 H ALT 37 Alkaline Phosphatase 157 H Total Protein 5.9 L Albumin 3.1 L TSH 4.83 H 10/18/18 22:01 Troponin I 0.050 NT-Pro-B Natriuret Pep 6020 H Impressions: Chest X-Ray 10/18/18 22:02 IMPRESSION: Cardiomegaly. Lungs are clear copyright 2011 [employer]- All Rights Reserved Assessment and Plan - Diagnosis (1) Atrial fibrillation with rapid ventricular response Is this a current diagnosis for this admission?: Yes Plan: The patient will be admitted to telemetry bed. We will cautiously continue IV Cardizem or cutting down the rate given borderline blood pressure. I ordered 0.25 mg IV digoxin. Should she continue to be tachycardic with borderline blood pressure, I may start her on IV amiodarone. We will check serial cardiac enzymes and obtain a cardiology consult in a.m. The patient [id number] score is 6 that places her at 9.7% and adjusted stroke rate per year. She will therefore be started on anti-coagulation (2) Acute on chronic diastolic CHF (congestive heart failure) Is this a current diagnosis for this admission?: Yes Plan: This is likely diastolic. The patient will be admitted to an IMCU bed and with improvement of her blood pressure will be diuresed with IV Lasix. Will follow serial cardiac enzymes. Will obtain a cardiology consultation in a.m. (3) Anemia Is this a current diagnosis for this admission?: Yes Plan: This is chronic and close to her baseline. (4) Coronary artery disease Qualifiers: Coronary Disease-Associated Artery/Lesion type: unspecified vessel or lesion type Associated angina: without angina Is this a current diagnosis for this admission?: Yes Plan: We will continue statin therapy and with improvement of blood pressure beta- jaimee therapy will be resumed. The patient will be placed on Eliquis. (5) Diabetes mellitus type 2 in obese Is this a current diagnosis for this admission?: Yes Plan: The patient will be placed on supplement coverage with Humalog (6) Hypertension Qualifiers: Hypertension type: essential hypertension Qualified Code(s): I10 - Essential (primary) hypertension Is this a current diagnosis for this admission?: Yes Plan: The patient's blood pressure is currently borderline with mild hypotension. Antihypertensives will be held off especially Cozaar given acute kidney injury. (7) DVT prophylaxis Is this a current diagnosis for this admission?: Yes Plan: She will be be placed on Eliquis. (8) Acute kidney injury superimposed on chronic kidney disease Is this a current diagnosis for this admission?: Yes Plan: This could be prerenal, related to acute CHF. Will follow BM P with diuresis. - Time Medications reviewed and adjusted accordingly: Yes Anticipated discharge: Home Within: within 72 hours - Inpatient Certification Medical Necessity: Need Close Monitoring Due to Risk of Patient Decompensation, Risk of Complication if Not Cared For in Hospital, Other - Need for rhythm control - Plan Summary Plan Summary: The plan of care was discussed in details with the patient. I answered all questions. The patient agreed to proceed with the above-mentioned plan. The patient is presumably full code. This note was created by [employer] dictating software and may contain typo errors that may have not been proofread.
[2018-10-19 04:14] LABS: HEMATOCRIT 22.6 % (36.0-47.0); MEAN CORPUSCULAR HEMOGLOBIN 30.4 pg (27.0-33.4); MEAN CORPUSCULAR HGB CONC 33.5 g/dL (32.0-36.0); MEAN CORPUSCULAR VOLUME 91 fl (80-97); PLATELET COUNT 136 10^3/uL (150-450); RED BLOOD COUNT 2.49 10^6/uL (3.72-5.28); RED CELL DISTRIBUTION WIDTH 19.1 % (11.5-14.0); WHITE BLOOD COUNT 8.9 10^3/uL (4.0-10.5)
[2018-10-19 04:21] LABS: HEMOGLOBIN 7.6 g/dL (12.0-15.5)
[2018-10-19] MEDS ORDERED: DILTIAZEM HCL/D5W 125 MG/125 ML RTUINJ IV PRN (04:30)
[2018-10-19 04:39] LABS: ANION GAP 9 (5-19); BLOOD UREA NITROGEN 65 mg/dL (7-20); CALCIUM 8.5 mg/dL (8.4-10.2); CARBON DIOXIDE 25 mmol/L (22-30); CHLORIDE 105 mmol/L (98-107); GLUCOSE 239 mg/dL (75-110); POTASSIUM 4.9 mmol/L (3.6-5.0); SODIUM 138.6 mmol/L (137-145)
[2018-10-19 04:43] LABS: ABSOLUTE LYMPHOCYTES# (MANUAL) 0.2 10^3/uL (0.5-4.7); ABSOLUTE MONOCYTES # (MANUAL) 0.4 10^3/uL (0.1-1.4); ABSOLUTE NEUTROPHILS# (MANUAL) 8.3 10^3/uL (1.7-8.2); BASOPHILS % (MANUAL) 0 % (0-2); EOSINOPHILS % (MANUAL) 0 % (0-6); LYMPHOCYTES % (MANUAL) 2 % (13-45); MONOCYTES % (MANUAL) 5 % (3-13); SEGMENTED NEUTROPHILS % (MAN) 93 % (42-78); TOTAL CELLS COUNTED 100
[2018-10-19 04:45] LABS: CREATINE KINASE < 20 U/L (30-135); HYPOCHROMASIA SLIGHT; PLATELET COMMENT DECREASED; POLYCHROMASIA SLIGHT
[2018-10-19 04:46] LABS: ANISOCYTOSIS 1+; TEAR DROP CELLS SLIGHT
[2018-10-19 04:50] LABS: CREATINE KINASE MB 0.33 ng/mL (<4.55); TROPONIN I 0.067 ng/mL
[2018-10-19] MEDS ORDERED: NORMAL SALINE 250 ML IV ONE ×2 (05:00→23:00)
[2018-10-19] MEDS: DILTIAZEM HCL 30 MG TABLET PO SCH ×3 (05:21→17:25)
[2018-10-19 06:34] LABS: ARTERIAL BLOOD BASE EXCESS 1.7 mmol/L; ARTERIAL BLOOD H2CO3 1.24 mmol/L (1.05-1.35); ARTERIAL BLOOD HCO3 26.2 mmol/L (20-24); ARTERIAL BLOOD O2 SATURATION 98.4 % (94-98); ARTERIAL BLOOD PCO2 41.1 mmHg (35-45); ARTERIAL BLOOD PH 7.42 (7.35-7.45); ARTERIAL BLOOD PO2 119.7 mmHg (80-100); ARTERIAL BLOOD TOTAL CO2 27.5 mmol/L (21-25)
[2018-10-19 06:39] LABS: ARTERIAL BLOOD FIO2 30%
[2018-10-19] MEDS: INSULIN LISPRO 100 UNIT/ML 3 ML VIAL SUBCUT SCH ×4 (08:02→22:17)
[2018-10-19] MEDS: FENOFIBRATE NANOCRYSTALLIZED 145 MG TABLET PO SCH (09:45)
[2018-10-19] MEDS: FERROUS SULFATE 325 MG TABLET PO SCH ×2 (09:45→17:25)
[2018-10-19] MEDS: PANTOPRAZOLE SODIUM 40 MG TABLET.DR PO SCH (09:45)
[2018-10-19] MEDS: GABAPENTIN 400 MG CAPSULE PO SCH ×2 (09:45→22:07)
[2018-10-19] MEDS: APIXABAN 5 MG TABLET PO SCH ×2 (09:49→17:25)
[2018-10-19] MEDS: CARVEDILOL 6.25 MG TABLET PO SCH ×3 (09:54→22:07)
[2018-10-19] MEDS: FUROSEMIDE INJ/PF 40 MG/4 ML SDV IV SCH ×2 (09:54→10:14)
[2018-10-19] MEDS ORDERED: IPRATROPIUM/ALBUTEROL 0.5-2.5 MG/3 ML AMPUL NEB PRN (09:59)
[2018-10-19] MEDS ORDERED: COLCHICINE 0.6 MG TABLET PO SCH (10:00)
[2018-10-19] MEDS ORDERED: LOSARTAN POTASSIUM 50 MG TABLET PO SCH (10:00)
[2018-10-19] MEDS ORDERED: ENOXAPARIN SODIUM INJ 40 MG/0.4 ML DISP.SYRIN SUBCUT SCH (10:00)
[2018-10-19] MEDS ORDERED: (PENDING PHARMACY ID) (Apremilast [Otezla] 30 MG) PO SCH (10:00)
[2018-10-19] MEDS ORDERED: NORMAL SALINE 250 ML IV PRN ×2 (10:07)
[2018-10-19] MEDS: LEVALBUTEROL HCL NEB 1.25 MG/3 ML AMPUL NEB SCH ×3 (10:41→19:41)
[2018-10-19 10:49] LABS: CREATINE KINASE MB 0.68 ng/mL (<4.55); TROPONIN I 0.07 ng/mL
[2018-10-19] MEDS: NITROGLYCERIN 2% OINTMENT 1 GM PACKET TP SCH ×2 (12:01→17:24)
[2018-10-19 14:34] LABS: HEMATOCRIT 26.4 % (36.0-47.0); HEMOGLOBIN 8.9 g/dL (12.0-15.5); MEAN CORPUSCULAR HEMOGLOBIN 30.3 pg (27.0-33.4); MEAN CORPUSCULAR HGB CONC 33.6 g/dL (32.0-36.0); MEAN CORPUSCULAR VOLUME 90 fl (80-97); PLATELET COUNT 152 10^3/uL (150-450); RED BLOOD COUNT 2.92 10^6/uL (3.72-5.28); RED CELL DISTRIBUTION WIDTH 19.2 % (11.5-14.0); WHITE BLOOD COUNT 8.4 10^3/uL (4.0-10.5)
[2018-10-19 16:42] LABS: CREATINE KINASE MB 0.26 ng/mL (<4.55); TROPONIN I 0.093 ng/mL
[2018-10-19] MEDS ORDERED: ACETAMINOPHEN 650 MG SUPP.RECT PR PRN (16:55)
[2018-10-19] MEDS ORDERED: VANCOMYCIN HCL 0 MG in DEXTROSE 5%-WATER 250 ML IV NR (17:00)
[2018-10-19 17:02] LABS: APPEARANCE,URINE CLEAR; BILIRUBIN,URINE NEGATIVE (NEGATIVE); COLOR,URINE STRAW; GLUCOSE, URINE NEGATIVE (NEGATIVE); KETONES,URINE NEGATIVE (NEGATIVE); LEUKOCYTE ESTERASE,URINE NEGATIVE (NEGATIVE); NITRITE,URINE NEGATIVE (NEGATIVE); PROTEIN,URINE 30 mg/dL (NEGATIVE); URINE SPECIFIC GRAVITY 1.008; UROBILINOGEN,URINE NEGATIVE mg/dL (<2.0)
[2018-10-19] MEDS ORDERED: ACETAMINOPHEN 325 MG TABLET PO ONE (17:15)
--- NOTE | 2018-10-19 17:19 | PDOC PROGRESS REPORT ---
Subjective Progress Note for:: 10/19/18 Subjective:: PREETI ELIZABETH is a 78 year old female with history of CHF, HTN, HLD, CAD who presented to the emergency room with acute onset of substernal chest pain with associated palpitations as well as dyspnea with recent cough productive of whitish sputum as well as wheezing. The patient is currently residing at [facility], receiving acute rehab following ? Shoulder surgery? The patient was seen this morning on rounds. She is resting in bed on BiPAP. She is very sleepy, but is arousable. She answers all questions appropriately. Lung sounds coarse bilaterally, rhonchi worse on the right. Generalized edema, worse in the lower extremities. S1-S2. Palpable pulses in the upper and lower extremities. Patient remains in A. fib, rate is relatively well controlled 110- 120. She remains on oral Cardizem. At 1600 nursing staff notified provider that patient spiked a fever to 102. Blood and urine cultures obtained. Given her recent stay at [facility], plan to treat with broad-spectrum antibiotics for healthcare associated pneumonia. Additionally, plan to obtain CT chest today. Reason For Visit: ATRIAL FIBRILLATION WITH RAPID VENTRICULAR RESPONS Physical Exam Vital Signs: Temp Pulse Resp BP Pulse Ox 101.6 F H 108 H 21 H 106/61 96 10/19/18 15:19 10/19/18 15:19 10/19/18 15:19 10/19/18 15:19 10/19/18 15:19 Pulse Oximeter Continuous Start: 10/19/18 10:45 Freq: RTQ4 Status: Hold Protocol: Document 10/19/18 12:00 (Rec: 10/19/18 12:31 [id number]) Pulse Oximetry Assessment Equipment Usage Equipment Standby Continuous SpO2 Machine # 0 Additional RT Notes Other pt is on nurse monitor and palliative senior np yoni is aware and ok with pt being on this monitor. Intake & Output 10/18/18 10/19/18 10/20/18 06:59 06:59 06:59 Intake Total 446 591 Output Total 400 Balance 446 191 Weight 73.3 kg General appearance: PRESENT: mild distress, obese Eye exam: PRESENT: conjunctiva pink, PERRLA Mouth exam: PRESENT: moist, tongue midline Neck exam: PRESENT: full ROM Respiratory exam: PRESENT: rhonchi, symmetrical. ABSENT: chest wall tenderness Cardiovascular exam: PRESENT: irregular rhythm - AFIB Pulses: PRESENT: normal radial pulses, normal dorsalis pedis pul Vascular exam: PRESENT: normal capillary refill GI/Abdominal exam: PRESENT: normal bowel sounds, soft. ABSENT: distended, tenderness Rectal exam: PRESENT: deferred Extremities exam: PRESENT: pedal edema Musculoskeletal exam: ABSENT: ambulatory Neurological exam: PRESENT: oriented to person, oriented to place, oriented to time, oriented to situation. ABSENT: alert, awake Skin exam: PRESENT: dry, intact Results Laboratory Results: 10/19/18 13:47 10/19/18 04:02 10/18/18 10/18/18 10/18/18 22:01 22:01 22:01 WBC 12.0 H RBC 2.86 L Hgb 8.5 L Hct 25.9 L MCV 91 MCH 29.8 MCHC 32.8 RDW 19.1 H Plt Count 166 Seg Neutrophils % Not Reportable Lymphocytes % Not Reportable Monocytes % Not Reportable Eosinophils % Not Reportable Basophils % Not Reportable Absolute Neutrophils Not Reportable Absolute Lymphocytes Not Reportable Absolute Monocytes Not Reportable Absolute Eosinophils Not Reportable Absolute Basophils Not Reportable Carbonic Acid HCO3/H2CO3 Ratio ABG pH ABG pCO2 ABG pO2 ABG HCO3 ABG O2 Saturation ABG Base Excess FiO2 Sodium 138.1 Potassium 5.0 Chloride 103 Carbon Dioxide 25 Anion Gap 10 BUN 63 H Creatinine 1.47 H Est GFR ( Amer) 41 L Est GFR (Non-Af Amer) 34 L Glucose 249 H Lactic Acid Calcium 8.8 Total Bilirubin 0.6 AST 37 H ALT 37 Alkaline Phosphatase 157 H Total Protein 5.9 L Albumin 3.1 L TSH 4.83 H Blood Type Antibody Screen 10/19/18 10/19/18 10/19/18 04:02 04:02 06:05 WBC 8.9 RBC 2.49 L Hgb 7.6 L Hct 22.6 L MCV 91 MCH 30.4 MCHC 33.5 RDW 19.1 H Plt Count 136 L Seg Neutrophils % Not Reportable Lymphocytes % Not Reportable Monocytes % Not Reportable Eosinophils % Not Reportable Basophils % Not Reportable Absolute Neutrophils Not Reportable Absolute Lymphocytes Not Reportable Absolute Monocytes Not Reportable Absolute Eosinophils Not Reportable Absolute Basophils Not Reportable Carbonic Acid 1.24 HCO3/H2CO3 Ratio 21:1 ABG pH 7.42 ABG pCO2 41.1 ABG pO2 119.7 H ABG HCO3 26.2 H ABG O2 Saturation 98.4 H ABG Base Excess 1.7 FiO2 30% Sodium 138.6 Potassium 4.9 Chloride 105 Carbon Dioxide 25 Anion Gap 9 BUN 65 H Creatinine 1.53 H Est GFR ( Amer) 40 L Est GFR (Non-Af Amer) 33 L Glucose 239 H Lactic Acid Calcium 8.5 Total Bilirubin AST ALT Alkaline Phosphatase Total Protein Albumin TSH Blood Type Antibody Screen 10/19/18 10/19/18 10/19/18 10:24 11:25 13:47 WBC 8.4 RBC 2.92 L Hgb 8.9 L Hct 26.4 L MCV 90 MCH 30.3 MCHC 33.6 RDW 19.2 H Plt Count 152 Seg Neutrophils % Lymphocytes % Monocytes % Eosinophils % Basophils % Absolute Neutrophils Absolute Lymphocytes Absolute Monocytes Absolute Eosinophils Absolute Basophils Carbonic Acid HCO3/H2CO3 Ratio ABG pH ABG pCO2 ABG pO2 ABG HCO3 ABG O2 Saturation ABG Base Excess FiO2 Sodium Potassium Chloride Carbon Dioxide Anion Gap BUN Creatinine Est GFR ( Amer) Est GFR (Non-Af Amer) Glucose Lactic Acid Calcium Total Bilirubin AST ALT Alkaline Phosphatase Total Protein Albumin TSH Blood Type Cancelled O NEGATIVE Antibody Screen Cancelled NEGATIVE 10/19/18 15:47 WBC RBC Hgb Hct MCV MCH MCHC RDW Plt Count Seg Neutrophils % Lymphocytes % Monocytes % Eosinophils % Basophils % Absolute Neutrophils Absolute Lymphocytes Absolute Monocytes Absolute Eosinophils Absolute Basophils Carbonic Acid HCO3/H2CO3 Ratio ABG pH ABG pCO2 ABG pO2 ABG HCO3 ABG O2 Saturation ABG Base Excess FiO2 Sodium Potassium Chloride Carbon Dioxide Anion Gap BUN Creatinine Est GFR ( Amer) Est GFR (Non-Af Amer) Glucose Lactic Acid 1.0 Calcium Total Bilirubin AST ALT Alkaline Phosphatase Total Protein Albumin TSH Blood Type Antibody Screen 10/18/18 10/19/18 10/19/18 22:01 04:02 04:02 Creatine Kinase < 20 L CK-MB (CK-2) 0.33 Troponin I 0.050 0.067 NT-Pro-B Natriuret Pep 6020 H 10/19/18 10/19/18 10/19/18 09:30 09:30 15:47 Creatine Kinase < 20 L 50 CK-MB (CK-2) 0.68 Troponin I 0.070 NT-Pro-B Natriuret Pep 10/19/18 15:47 Creatine Kinase CK-MB (CK-2) 0.26 Troponin I 0.093 NT-Pro-B Natriuret Pep Impressions: Chest X-Ray 10/18/18 22:02 IMPRESSION: Cardiomegaly. Lungs are clear copyright 2011 [employer]- All Rights Reserved Status: Imported from PACS Assessment and Plan - Diagnosis (1) Acute on chronic diastolic CHF (congestive heart failure) Is this a current diagnosis for this admission?: Yes Plan: Previous workup and routine follow up at [facility] Requested records from [facility] Cardiology consulted Continue Coreg, Prinvil, Bumex, Norvasc Started on Eliquis for AFIB anticoagulation and BAILEY VASC score 7 (2) Anemia Is this a current diagnosis for this admission?: Yes Plan: Hgb dropped to 7.6, planned to transfuse Follow up scheduled CBC Hgb 8.9, will hold off on transfusion for now No evidence of bleeding - denies BRB VT or black stool, no coffee ground emesis (3) Atrial fibrillation with rapid ventricular response Is this a current diagnosis for this admission?: Yes Plan: Rate controlled with PO diltiazem Weaned from cardizem gtt The patient [id number] score is 7, high risk for stroke Started on Eliquis 5mg BID (4) Coronary artery disease Qualifiers: Coronary Disease-Associated Artery/Lesion type: unspecified vessel or lesion type Associated angina: without angina Is this a current diagnosis for this admission?: Yes Plan: Continue statin therapy Eliquis BID (for AFIB anticoagulation) (5) Diabetes mellitus type 2 in obese Is this a current diagnosis for this admission?: Yes Plan: Accu-Cheks AC at bedtime Humalog sliding scale insulin 10 units Lantus nightly Cardiac diabetic diet (6) Hypertension Qualifiers: Hypertension type: essential hypertension Qualified Code(s): I10 - Essential (primary) hypertension Is this a current diagnosis for this admission?: Yes Plan: PMH HTN Patient was initially HYPOtensive while on cardizem gtt Has retuned to baseline now that she has transitioned to PO cardizem Continue Coreg, Prinvil, Bumex, Norvasc (7) Acute kidney injury superimposed on chronic kidney disease Is this a current diagnosis for this admission?: Yes Plan: Likely stemming from acute CHF As CHF resolved so should PARDEEP Trend daily chemistries (8) Fever Qualifiers: Encounter type: initial encounter Is this a current diagnosis for this admission?: Yes Plan: Unknown source Possible healthcare associated pneumonia due to patient's recent stay at acute rehab coupled with clinical presentation (rhonchi, fever, tachypnea, respiratory distress requiring BiPAP) Blood and urine cultures sent, results pending Cover with broad-spectrum antibiotics: Cefepime and vancomycin Plan for CT chest to evaluate for PNA or other - Time Time Spent with patient: 15-24 minutes Medications reviewed and adjusted accordingly: Yes Anticipated discharge: Home - Inpatient Certification Based on my medical assessment, after consideration of the patient's comorbidities, presenting symptoms, or acuity I expect that the services needed warrant INPATIENT care.: Yes I certify that my determination is in accordance with my understanding of Medicare's requirements for reasonable and necessary INPATIENT services [42 CFR 412.3e].: Yes Medical Necessity: Need Close Monitoring Due to Risk of Patient Decompensation, Need For Continuous Telemetry Monitoring, Need for IV Antibiotics, Risk of Complication if Not Cared For in Hospital
[2018-10-19] MEDS ORDERED: ACETAMINOPHEN 325 MG TABLET ONE (17:22)
--- NOTE | 2018-10-19 18:07 | RADIOLOGY REPORT (SQ) ---
EXAM DESCRIPTION: CT CHEST WITHOUT COMPLETED DATE/TIME: 10/19/2018 5:53 pm REASON FOR STUDY: dyspnea. fever. COMPARISON: Chest x-ray 10/18/2018 TECHNIQUE: CT scan performed of the chest without intravenous contrast. Images reviewed with lung, soft tissue and bone windows. Reconstructed coronal and sagittal MPR images reviewed. All images st ored on PACS. All CT scanners at this facility use dose modulation, iterative reconstruction, and/or weight based d osing when appropriate to reduce radiation dose to as low as reasonably achievable (ALARA). [facility]: Dose Right [facility]: CareDose [facility]: Dose Right [facility]: Teradose 4D [facility]: [employer] RADIATION DOSE: CT Rad equipment meets quality standard of care and radiation dose reduction techniq ues were employed. CTDIvol: 13.1 mGy. DLP: 512 mGy-cm. mGy. LIMITATIONS: No technical limitations. FINDINGS: LUNGS AND PLEURA: There is limited opacification in the superior segment of the left lower lobe extending posteriorly from the hilum. HILAR AND MEDIASTINAL STRUCTURES: There is the appearance of a 2 cm left hilar mass. HEART AND VASCULAR STRUCTURES: No aneurysm. No pericardial effusion. UPPER ABDOMEN: Cholelithiasis. THYROID AND OTHER SOFT TISSUES: No masses. No adenopathy. BONES: No significant finding. HARDWARE: None in the chest. OTHER: No other significant findings. IMPRESSION: Limited airspace disease in the superior segment of the left lower lobe apparently secon kala to the presence of a small left hilar mass. Cholelithiasis. TECHNICAL DOCUMENTATION: JOB ID: [id number] Quality ID # [id number]: Final reports with documentation of one or more dose reduction techniques (e.g., Au tomated exposure control, adjustment of the mA and/or kV according to patient size, use of iterative reconstruction technique) 2010 [employer]- All Rights Reserved Reading location - IP/workstation name: [email or web address]
[2018-10-19] MEDS: CEFEPIME 2 GM/D5W RTU 2 GM/50 ML RTUPB IV SCH (18:52)
[2018-10-19] MEDS ORDERED: NORMAL SALINE 1000 ML 1,000 ML IV PRN (20:18)
[2018-10-19] MEDS ORDERED: INSULIN GLARGINE,HUM.REC.ANLOG 1,000 UNIT/10 ML VIAL SUBCUT SCH (22:00)
[2018-10-19] MEDS ORDERED: ATORVASTATIN CALCIUM 20 MG TABLET PO SCH (22:00)
[2018-10-19] MEDS: VANCOMYCIN HCL 1,000 MG in DEXTROSE 5%-WATER 250 ML IV SCH (22:06)
--- NOTE | 2018-10-19 22:54 | PDOC CONSULTATION ---
Consultation-Blank Consultation: CARDIOLOGY CONSULTATION by Dr. Viviana Kaplan on 10/19/2018.
[2018-10-20] MEDS: DILTIAZEM HCL 30 MG TABLET PO SCH ×3 (00:31→14:25)
[2018-10-20] MEDS: NITROGLYCERIN 2% OINTMENT 1 GM PACKET TP SCH ×4 (00:31→17:34)
[2018-10-20] MEDS: LEVALBUTEROL HCL NEB 1.25 MG/3 ML AMPUL NEB SCH ×4 (02:20→20:59)
[2018-10-20 05:23] LABS: HEMATOCRIT 26.6 % (36.0-47.0); HEMOGLOBIN 8.8 g/dL (12.0-15.5); MEAN CORPUSCULAR HEMOGLOBIN 30.1 pg (27.0-33.4); MEAN CORPUSCULAR HGB CONC 33.2 g/dL (32.0-36.0); MEAN CORPUSCULAR VOLUME 91 fl (80-97); PLATELET COUNT 151 10^3/uL (150-450); RED BLOOD COUNT 2.94 10^6/uL (3.72-5.28); RED CELL DISTRIBUTION WIDTH 18.6 % (11.5-14.0); WHITE BLOOD COUNT 7.9 10^3/uL (4.0-10.5)
[2018-10-20 05:45] LABS: ANION GAP 8 (5-19); BLOOD UREA NITROGEN 68 mg/dL (7-20); CARBON DIOXIDE 26 mmol/L (22-30); CHLORIDE 104 mmol/L (98-107); GLUCOSE 168 mg/dL (75-110); SODIUM 137.8 mmol/L (137-145)
[2018-10-20 06:23] LABS: ABSOLUTE LYMPHOCYTES# (MANUAL) 0.2 10^3/uL (0.5-4.7); ABSOLUTE MONOCYTES # (MANUAL) 0.6 10^3/uL (0.1-1.4); BASOPHILS % (MANUAL) 0 % (0-2); EOSINOPHILS % (MANUAL) 1 % (0-6); LYMPHOCYTES % (MANUAL) 3 % (13-45); MONOCYTES % (MANUAL) 7 % (3-13); SEGMENTED NEUTROPHILS % (MAN) 89 % (42-78); TOTAL CELLS COUNTED 100
[2018-10-20 06:24] LABS: ANISOCYTOSIS 1+; OVALOCYTES SLIGHT; PLATELET COMMENT ADEQUATE; POIKILOCYTOSIS 1+; TEAR DROP CELLS SLIGHT; TOXIC GRANULATION SLIGHT; TOXIC VACUOLATION PRESENT
[2018-10-20] MEDS: INSULIN LISPRO 100 UNIT/ML 3 ML VIAL SUBCUT SCH ×4 (07:59→21:40)
[2018-10-20] MEDS: ACETAMINOPHEN 325 MG TABLET PO PRN ×2 (08:01→14:33)
[2018-10-20] MEDS: FERROUS SULFATE 325 MG TABLET PO SCH ×2 (08:02→18:53)
[2018-10-20] MEDS ORDERED: ACETAMINOPHEN 650 MG SUPP.RECT PR PRN (09:38)
[2018-10-20] MEDS ORDERED: ALBUTEROL SULFATE HFA (90 MCG/PUFF) 200 PUFF/8.5 GM MDI IH PRN (09:40)
[2018-10-20] MEDS ORDERED: APIXABAN 5 MG TABLET PO SCH (10:00)
[2018-10-20] MEDS: CARVEDILOL 6.25 MG TABLET PO SCH ×2 (10:06→21:52)
[2018-10-20] MEDS: APIXABAN 2.5 MG TABLET PO SCH ×2 (10:07→18:53)
[2018-10-20] MEDS: GABAPENTIN 400 MG CAPSULE PO SCH ×2 (10:07→21:52)
[2018-10-20] MEDS: PANTOPRAZOLE SODIUM 40 MG TABLET.DR PO SCH (10:07)
[2018-10-20] MEDS: FUROSEMIDE INJ/PF 40 MG/4 ML SDV IV SCH (10:07)
[2018-10-20] MEDS: FENOFIBRATE NANOCRYSTALLIZED 145 MG TABLET PO SCH (10:07)
[2018-10-20] MEDS ORDERED: NORMAL SALINE 500 ML IV ONE (12:15)
[2018-10-20] MEDS ORDERED: DEXTROSE 5%-WATER 250 ML with PHENYLEPHRINE HCL 40 MG IV PRN ×2 (12:36)
--- NOTE | 2018-10-20 12:57 | RADIOLOGY REPORT (SQ) ---
EXAM DESCRIPTION: CHEST SINGLE VIEW COMPLETED DATE/TIME: 10/20/2018 12:45 pm REASON FOR STUDY: Hypoxia COMPARISON: CT chest dated 10/19/2018, portable chest dated 10/18/2018 EXAM PARAMETERS: NUMBER OF VIEWS: One view. TECHNIQUE: Single frontal radiographic view of the chest acquired. RADIATION DOSE: NA LIMITATIONS: None. FINDINGS: LUNGS AND PLEURA: There is increasing left perihilar airspace disease. This is consistent with postobstructive atelectasis or pneumonia as was suggested on CT. No pneumothorax. No effusion s. MEDIASTINUM AND HILAR STRUCTURES: No masses. Contour normal. HEART AND VASCULAR STRUCTURES: Heart normal in size. Normal vasculature. BONES: No acute findings. HARDWARE: None in the chest. OTHER: No other significant finding. IMPRESSION: Increasing left perihilar infiltrate. TECHNICAL DOCUMENTATION: JOB ID: [id number] [employer]- All Rights Reserved Reading location - IP/workstation name: [email or web address]
[2018-10-20 13:01] LABS: HEMATOCRIT 23.2 % (36.0-47.0); MEAN CORPUSCULAR HGB CONC 33.4 g/dL (32.0-36.0); MEAN CORPUSCULAR VOLUME 90 fl (80-97); PLATELET COUNT 148 10^3/uL (150-450); RED BLOOD COUNT 2.58 10^6/uL (3.72-5.28); RED CELL DISTRIBUTION WIDTH 18.7 % (11.5-14.0); WHITE BLOOD COUNT 5.6 10^3/uL (4.0-10.5)
[2018-10-20 13:10] LABS: HEMOGLOBIN 7.7 g/dL (12.0-15.5)
[2018-10-20 13:17] LABS: ALANINE AMINOTRANSFERASE 43 U/L (9-52); ALBUMIN 2.5 g/dL (3.5-5.0); ALKALINE PHOSPHATASE 77 U/L (38-126); ANION GAP 6 (5-19); ASPARTATE AMINO TRANSFERASE 36 U/L (14-36); BILIRUBIN,DIRECT 0.3 mg/dL (0.0-0.4); BILIRUBIN,TOTAL 0.5 mg/dL (0.2-1.3); BLOOD UREA NITROGEN 68 mg/dL (7-20); CALCIUM 7.9 mg/dL (8.4-10.2); CARBON DIOXIDE 27 mmol/L (22-30); CHLORIDE 104 mmol/L (98-107); GLUCOSE 141 mg/dL (75-110); POTASSIUM 4.9 mmol/L (3.6-5.0); SODIUM 136.9 mmol/L (137-145); TOTAL PROTEIN 5.1 g/dL (6.3-8.2)
[2018-10-20 13:29] LABS: TROPONIN I 0.085 ng/mL
[2018-10-20] MEDS ORDERED: FUROSEMIDE INJ/PF 20 MG/2 ML SDV IV PRN (13:53)
[2018-10-20] MEDS ORDERED: NORMAL SALINE 250 ML IV PRN ×2 (13:53)
[2018-10-20 14:03] LABS: ARTERIAL BLOOD BASE EXCESS 0.3 mmol/L; ARTERIAL BLOOD FIO2 30%; ARTERIAL BLOOD H2CO3 1.35 mmol/L (1.05-1.35); ARTERIAL BLOOD HCO3 25.7 mmol/L (20-24); ARTERIAL BLOOD O2 SATURATION 95.9 % (94-98); ARTERIAL BLOOD PH 7.37 (7.35-7.45); ARTERIAL BLOOD PO2 83.2 mmHg (80-100)
[2018-10-20] MEDS: LISINOPRIL 10 MG TABLET PO SCH (14:25)
[2018-10-20] MEDS: IPRATROPIUM/ALBUTEROL 0.5-2.5 MG/3 ML AMPUL NEB SCH ×2 (15:02→21:26)
[2018-10-20] MEDS ORDERED: FUROSEMIDE INJ/PF 40 MG/4 ML SDV IV SCH (18:00)
[2018-10-20] MEDS: CEFEPIME 2 GM/D5W RTU 2 GM/50 ML RTUPB IV SCH (18:53)
--- NOTE | 2018-10-20 19:10 | Operative Report ---
Operative Report DATE OF SURGERY: 10/20/18 PREOPERATIVE DIAGNOSIS: Critical need for intravenous access. POSTOPERATIVE DIAGNOSIS: Critical need for intravenous access. OPERATION: Right femoral triple-lumen central venous catheter placement SURGEON: JENNIFER VILLANUEVA ANESTHESIA: Local TISSUE REMOVED OR ALTERED: None COMPLICATIONS: None ESTIMATED BLOOD LOSS: 20 cc INTRAOPERATIVE FINDINGS: None PROCEDURE: Patient with critical need for intravenous access. Primary care physician did not feel that a PICC line was appropriate. Patient with BiPAP mask on with a very thick neck and on anticoagulation with also renal insufficiency. No history of DVTs. I felt that a femoral line would be the safest approach in this patient. Informed consent was obtained. Patient's right groin was prepped and draped in usual sterile fashion. The right femoral vein was entered on the first stick without difficulty. I withdrew nonpulsatile dark blood. Guidewire was placed. Triple-lumen central venous catheter was placed via the Seldinger technique without difficulty. It was sutured in place. Dressings were applied. The line withdrew blood and flushed easily. Patient tolerated procedure well with no apparent complications.
--- NOTE | 2018-10-20 19:26 | PDOC PROGRESS REPORT ---
Subjective Progress Note for:: 10/20/18 Subjective:: PREETI ELIZABETH is a 78 year old female with history of CHF, HTN, HLD, CAD who presented to the emergency room with acute onset of substernal chest pain with associated palpitations as well as dyspnea with recent cough productive of whitish sputum as well as wheezing. She was admitted for HAP, Afibe RVR, and CHF exacerbation. The patient was seen on rounds multiple times throughout the day. Early this morning, she was found to be significantly lethargic; this improved throughout the day with continuous BiPAP use (reassuring ABG). This afternoon, she was noted to be fatigued, but awake, oriented, and fully conversational. Patient's primary complaint is shortness of breath, productive cough, and generalized weakness. She denies fever, chills, chest pain, palpitations, abdominal pain, nausea, vomiting, and diarrhea. She has no specific questions or concerns today; does clearly state on multiple visits she is a DNR/DNI, but would wish for limited interventions (such as ICU upgrade, pressor support, IV fluids/antibiotics). Of primary concern has been the patient's blood pressure today; she is noted to be hypotensive with blood pressures 70/40-80/50. The patient was provided judicious NS bolus of 500 mL's due to the patient's dependent edema and crackles (CHF exacerbation); no effect in pressures noted. Patient's assessment, vital signs, HPI discussed with Dr. Momin and Dr. Kaplan. Patient's diltiazem is held per Dr. Preciado. Currently receiving 1 unit PRBC (Hgb 7.7). She is upgraded to ICU to receive pressure support to allow for diuresis with lasix. Reason For Visit: ATRIAL FIBRILLATION WITH RAPID VENTRICULAR RESPONS Physical Exam Vital Signs: Temp Pulse Resp BP Pulse Ox 100.9 F H 113 H 20 113/64 94 10/20/18 07:30 10/20/18 08:05 10/20/18 10:31 10/20/18 07:30 10/20/18 10:31 Pulse Oximeter Continuous Start: 10/19/18 10:45 Freq: RTQ4 Status: Hold Protocol: Document 10/19/18 12:00 NIXON (Rec: 10/19/18 12:31 NIXON [email or web address]) Pulse Oximetry Assessment Equipment Usage Equipment Standby Continuous SpO2 Machine # 0 Additional RT Notes Other pt is on nurse monitor and rock mason yoni is aware and ok with pt being on this monitor. Intake & Output 10/19/18 10/20/18 10/21/18 06:59 06:59 06:59 Intake Total 446 2645 Output Total 1550 Balance 446 1095 Weight 73.3 kg 75 kg General appearance: PRESENT: disheveled, hard of hearing, mild distress, obese Head exam: PRESENT: atraumatic, normocephalic Eye exam: PRESENT: conjunctiva pink, EOMI, PERRLA. ABSENT: scleral icterus Mouth exam: PRESENT: moist, tongue midline Respiratory exam: PRESENT: crackles - bibasilar, decreased breath sounds - bibasilar, prolonged expiratory phas, rhonchi - throughout, symmetrical, unlabored, wheezes, other - supplemental oxygen/bipap. ABSENT: rales Cardiovascular exam: PRESENT: irregular rhythm, +S1, +S2. ABSENT: diastolic murmur, rubs, systolic murmur Pulses: PRESENT: normal dorsalis pedis pul Vascular exam: PRESENT: normal capillary refill GI/Abdominal exam: PRESENT: distended, normal bowel sounds, soft. ABSENT: guarding, mass, organolmegaly, rebound, tenderness Rectal exam: PRESENT: deferred Extremities exam: PRESENT: +2 edema - pitting BLE. ABSENT: calf tenderness, clubbing, pedal edema Neurological exam: PRESENT: alert, awake, oriented to person, oriented to place, oriented to situation, CN II-XII grossly intact, other - arousable, lethargic. ABSENT: motor sensory deficit Psychiatric exam: ABSENT: homicidal ideation, suicidal ideation Skin exam: PRESENT: dry, intact, warm. ABSENT: cyanosis, rash Results Laboratory Results: 10/20/18 04:27 10/20/18 04:27 10/19/18 10/19/18 10/19/18 11:25 13:47 15:47 WBC 8.4 RBC 2.92 L Hgb 8.9 L Hct 26.4 L MCV 90 MCH 30.3 MCHC 33.6 RDW 19.2 H Plt Count 152 Seg Neutrophils % Lymphocytes % Monocytes % Eosinophils % Basophils % Absolute Neutrophils Absolute Lymphocytes Absolute Monocytes Absolute Eosinophils Absolute Basophils Sodium Potassium Chloride Carbon Dioxide Anion Gap BUN Creatinine Est GFR ( Amer) Est GFR (Non-Af Amer) Glucose Lactic Acid 1.0 Calcium Magnesium Urine Color Urine Appearance Urine pH Ur Specific [place] Urine Protein Urine Glucose (UA) Urine Ketones Urine Blood Urine Nitrite Ur Leukocyte Esterase Urine WBC (Auto) Blood Type O NEGATIVE Antibody Screen NEGATIVE 10/19/18 10/20/18 10/20/18 16:30 04:27 04:27 WBC 7.9 RBC 2.94 L Hgb 8.8 L Hct 26.6 L MCV 91 MCH 30.1 MCHC 33.2 RDW 18.6 H Plt Count 151 Seg Neutrophils % Not Reportable Lymphocytes % Not Reportable Monocytes % Not Reportable Eosinophils % Not Reportable Basophils % Not Reportable Absolute Neutrophils Not Reportable Absolute Lymphocytes Not Reportable Absolute Monocytes Not Reportable Absolute Eosinophils Not Reportable Absolute Basophils Not Reportable Sodium 137.8 Potassium 5.0 Chloride 104 Carbon Dioxide 26 Anion Gap 8 BUN 68 H Creatinine 1.58 H Est GFR ( Amer) 38 L Est GFR (Non-Af Amer) 31 L Glucose 168 H Lactic Acid Calcium 8.0 L Magnesium 1.8 Urine Color STRAW Urine Appearance CLEAR Urine pH 6.0 Ur Specific [place] 1.008 Urine Protein 30 H Urine Glucose (UA) NEGATIVE Urine Ketones NEGATIVE Urine Blood SMALL H Urine Nitrite NEGATIVE Ur Leukocyte Esterase NEGATIVE Urine WBC (Auto) 0 Blood Type Antibody Screen 10/18/18 10/19/18 10/19/18 22:01 04:02 04:02 Creatine Kinase < 20 L CK-MB (CK-2) 0.33 Troponin I 0.050 0.067 NT-Pro-B Natriuret Pep 6020 H 10/19/18 10/19/18 10/19/18 09:30 09:30 15:47 Creatine Kinase < 20 L 50 CK-MB (CK-2) 0.68 Troponin I 0.070 NT-Pro-B Natriuret Pep 10/19/18 15:47 Creatine Kinase CK-MB (CK-2) 0.26 Troponin I 0.093 NT-Pro-B Natriuret Pep Impressions: Chest X-Ray 10/18/18 22:02 IMPRESSION: Cardiomegaly. Lungs are clear copyright 2010 [employer]- All Rights Reserved Chest CT 10/19/18 15:46 IMPRESSION: Limited airspace disease in the superior segment of the left lower lobe apparently secondary to the presence of a small left hilar mass. Cholelithiasis. Assessment and Plan - Diagnosis (1) Healthcare-associated pneumonia Is this a current diagnosis for this admission?: Yes Plan: Chest x-ray (10/20/2018) demonstrates increased left perihilar infiltrate Leukocytosis is improved; 12-> 5.6 Continues to have intermittent low-grade temperature; 100.9 this morning. TMax last 48 hrs: 102.2 ABG is reassuring; pH 7.37, pO2 83.2, pCO2 45, HCO3 25.7 Blood cultures negative at 24 hours. Sputum cultures pending. The patient has been upgraded to ICU status today. She is provided supplemental oxygen and BiPAP as needed to maintain saturations >89% She is provided scheduled and as needed nebulizer treatments. She has been empirically placed on IV cefepime and vancomycin for coverage of healthcare associated pneumonia (recently at [facility] for short-term rehab). Mucinex twice daily. A flutter valve and incentive spirometer when not on BiPAP. (2) Acute on chronic diastolic CHF (congestive heart failure) Is this a current diagnosis for this admission?: Yes Plan: Worsened today; patient with crackles throughout, +3 pitting edema bilateral lower extremities. ProBNP minimally improved 6000-> 5700 Echocardiogram pending. Cardiology consulted; appreciate Dr. Preciado's assistance. Diltiazem on hold per Dr. Preciado secondary HYPOtension. Upgraded to ICU; will provide Tay for pressor support. Gentle diuresis with IV furosemide. Continue Coreg and lisinopril Continue daily aspirin and statin therapy. Started on Eliquis 2.5 mg twice daily for AFIB anticoagulation and BAILEY VASC score 7 Cardiac diet. Daily weights. Cook cather placement for strict I&O's. (3) Anemia Is this a current diagnosis for this admission?: Yes Plan: Chronic; baseline Hgb 8.5 Hgb 8.5 on admission; waxing and waning. 8.5-> 7.6-> 8.9-> 8.8-> 7.7 No evidence of bleeding - denies BRB ND or black stool, no coffee ground emesis Will transfuse 1 unit PRBC Continue to monitor and transfuse for Hgb <8.0 (4) Atrial fibrillation with rapid ventricular response Is this a current diagnosis for this admission?: Yes Plan: Possibly secondary to HAP Rate controlled with PO diltiazem; currently on hold per Dr. Preciado 2/2 HYPOtension. Weaned from cardizem gtt The patient [id number] score is 7, high risk for stroke Started on Eliquis 2.5 mg BID (5) Diabetes mellitus type 2 in obese Is this a current diagnosis for this admission?: Yes Plan: Accu-Cheks AC at bedtime Humalog sliding scale insulin 10 units Lantus nightly Cardiac diabetic diet (6) Acute kidney injury superimposed on chronic kidney disease Is this a current diagnosis for this admission?: Yes Plan: Likely stemming from acute CHF Baseline Cr 1.30 Slight bump in creatinine today. Cr 1.47-> 1.58-> 1.81 As CHF resolved so should PARDEEP; optimize cardiac function Trend daily chemistries (7) Fever Qualifiers: Encounter type: initial encounter Is this a current diagnosis for this admission?: Yes Plan: Secondary to healthcare associated PNA. Continues to have intermittent low-grade temperature; 100.9 this morning. TMax last 48 hrs: 102.2 Blood cultures negative at 24 hours. Cover with broad-spectrum antibiotics: Cefepime and vancomycin (8) Coronary artery disease Qualifiers: Coronary Disease-Associated Artery/Lesion type: unspecified vessel or lesion type Associated angina: without angina Is this a current diagnosis for this admission?: Yes Plan: Continue statin therapy Eliquis BID (for AFIB anticoagulation) (9) Hypertension Qualifiers: Hypertension type: essential hypertension Qualified Code(s): I10 - Essential (primary) hypertension Is this a current diagnosis for this admission?: Yes Plan: PMH HTN Patient was initially HYPOtensive while on cardizem gtt; improved following transition to p.o. cardizem. Unfortunately nowreoccured with clinical evidence of worsening CHF. p.o. Diltiazem on hold. Continue Coreg, Prinvil (holding parameters) Remaining management as above Cardiology is consulted. - Time Time Spent with patient: 35 or more minutes Medications reviewed and adjusted accordingly: Yes Anticipated discharge: SNF - Inpatient Certification Based on my medical assessment, after consideration of the patient's comorbidities, presenting symptoms, or acuity I expect that the services needed warrant INPATIENT care.: Yes I certify that my determination is in accordance with my understanding of Medicare's requirements for reasonable and necessary INPATIENT services [42 CFR 412.3e].: Yes Medical Necessity: Significant Comorbidiites Make Outpatient Treatment Too Risky, Need Close Monitoring Due to Risk of Patient Decompensation, Need For Continuous Telemetry Monitoring, Need for Nebulizer Therapy and Monitoring of Response, Need for IV Antibiotics - Plan Summary Plan Summary: HPI, VS, assessment, labs and Plan of care reviewed and developed with Dr. Momin. Spoke with Dr. Preciado, as well, regarding hypotension, diltiazem, and lasix.
--- NOTE | 2018-10-20 21:44 | Progress Note ---
Provider Note Provider Note: CARDIOLOGY PROGRESS NOTE by Dr. Viviana Kaplan on 10/20/2018.
[2018-10-20] MEDS: FUROSEMIDE INJ/PF 20 MG/2 ML SDV IV SCH (21:51)
[2018-10-20] MEDS: VANCOMYCIN HCL 1,000 MG in DEXTROSE 5%-WATER 250 ML IV SCH (21:51)
[2018-10-20] MEDS: ATORVASTATIN CALCIUM 40 MG TABLET PO SCH (21:52)
[2018-10-20] MEDS: GUAIFENESIN 600 MG TABLET.SA PO SCH (21:52)
[2018-10-20 21:58] LABS: HEMATOCRIT 26.3 % (36.0-47.0); HEMOGLOBIN 8.7 g/dL (12.0-15.5); MEAN CORPUSCULAR HEMOGLOBIN 30.4 pg (27.0-33.4); MEAN CORPUSCULAR HGB CONC 33.2 g/dL (32.0-36.0); MEAN CORPUSCULAR VOLUME 92 fl (80-97); PLATELET COUNT 142 10^3/uL (150-450); RED BLOOD COUNT 2.86 10^6/uL (3.72-5.28); WHITE BLOOD COUNT 6.2 10^3/uL (4.0-10.5)
[2018-10-20] MEDS ORDERED: NOREPINEPHRINE BITARTRATE INJ/PF 4 MG/4 ML SDV IV ONE (22:06)
[2018-10-20] MEDS: DEXTROSE 5%-WATER 250 ML with NOREPINEPHRINE BITARTRATE 4 MG IV PRN ×2 (22:35)
[2018-10-21] MEDS: INSULIN GLARGINE,HUM.REC.ANLOG 1,000 UNIT/10 ML VIAL SUBCUT SCH ×2 (01:18→21:36)
[2018-10-21] MEDS: LEVALBUTEROL HCL NEB 1.25 MG/3 ML AMPUL NEB SCH ×4 (02:11→20:48)
[2018-10-21] MEDS: IPRATROPIUM/ALBUTEROL 0.5-2.5 MG/3 ML AMPUL NEB SCH ×3 (02:14→14:04)
[2018-10-21 05:06] LABS: ANION GAP 9 (5-19); BLOOD UREA NITROGEN 70 mg/dL (7-20); CARBON DIOXIDE 26 mmol/L (22-30); CHLORIDE 102 mmol/L (98-107); GLUCOSE 125 mg/dL (75-110); POTASSIUM 4.9 mmol/L (3.6-5.0); SODIUM 136.7 mmol/L (137-145)
[2018-10-21 05:07] LABS: HEMATOCRIT 26.4 % (36.0-47.0); HEMOGLOBIN 8.9 g/dL (12.0-15.5); MEAN CORPUSCULAR HEMOGLOBIN 30.3 pg (27.0-33.4); MEAN CORPUSCULAR HGB CONC 33.5 g/dL (32.0-36.0); MEAN CORPUSCULAR VOLUME 90 fl (80-97); PLATELET COUNT 149 10^3/uL (150-450); RED BLOOD COUNT 2.93 10^6/uL (3.72-5.28); RED CELL DISTRIBUTION WIDTH 18.4 % (11.5-14.0); WHITE BLOOD COUNT 6.7 10^3/uL (4.0-10.5)
[2018-10-21 05:21] LABS: ABSOLUTE LYMPHOCYTES# (MANUAL) 0.1 10^3/uL (0.5-4.7); ABSOLUTE MONOCYTES # (MANUAL) 0.4 10^3/uL (0.1-1.4); ABSOLUTE NEUTROPHILS# (MANUAL) 6.2 10^3/uL (1.7-8.2); BAND NEUTROPHILS % (MANUAL) 2 % (3-5); BASOPHILS % (MANUAL) 0 % (0-2); EOSINOPHILS % (MANUAL) 0 % (0-6); HYPOCHROMASIA SLIGHT; LYMPHOCYTES % (MANUAL) 2 % (13-45); MONOCYTES % (MANUAL) 6 % (3-13); PLATELET COMMENT ADEQUATE; SEGMENTED NEUTROPHILS % (MAN) 90 % (42-78); TOTAL CELLS COUNTED 100
[2018-10-21] MEDS: LEVOTHYROXINE SODIUM 0.025 MG TABLET PO SCH (06:17)
[2018-10-21] MEDS: FERROUS SULFATE 325 MG TABLET PO SCH ×2 (09:20→17:30)
[2018-10-21] MEDS: GUAIFENESIN 600 MG TABLET.SA PO SCH ×2 (09:20→21:38)
[2018-10-21] MEDS: FUROSEMIDE INJ/PF 20 MG/2 ML SDV IV SCH (09:20)
[2018-10-21] MEDS: PANTOPRAZOLE SODIUM 40 MG TABLET.DR PO SCH (09:20)
[2018-10-21] MEDS: GABAPENTIN 400 MG CAPSULE PO SCH ×2 (09:20→21:38)
[2018-10-21] MEDS: INSULIN LISPRO 100 UNIT/ML 3 ML VIAL SUBCUT SCH ×4 (09:20→21:35)
[2018-10-21] MEDS: CARVEDILOL 6.25 MG TABLET PO SCH ×2 (09:27→21:38)
[2018-10-21] MEDS: FENOFIBRATE NANOCRYSTALLIZED 145 MG TABLET PO SCH (09:27)
[2018-10-21] MEDS: APIXABAN 2.5 MG TABLET PO SCH ×2 (09:27→17:30)
[2018-10-21] MEDS: LISINOPRIL 10 MG TABLET PO SCH (09:31)
[2018-10-21] MEDS: DEXTROSE 5%-WATER 250 ML with NOREPINEPHRINE BITARTRATE 4 MG IV PRN ×2 (09:47)
[2018-10-21] MEDS ORDERED: (PENDING PHARMACY ID) (Lisinopril [Prinivil] 20 MG) PO SCH ×2 (10:00)
[2018-10-21] MEDS ORDERED: ASPIRIN 81 MG TABLET, ENT COATED PO SCH (10:00)
[2018-10-21] MEDS ORDERED: METHYLPREDNISOLONE INJ 125 MG/2 ML SDV IV ONE (11:30)
[2018-10-21] MEDS: CEFEPIME 2 GM/D5W RTU 2 GM/50 ML RTUPB IV SCH (17:29)
--- NOTE | 2018-10-21 17:48 | PDOC PROGRESS REPORT ---
Subjective Progress Note for:: 10/21/18 Subjective:: PREETI ELIZABETH is a 78 year old female with history of CHF, HTN, HLD, CAD who presented to the emergency room with acute onset of substernal chest pain with associated palpitations as well as dyspnea with recent cough productive of whitish sputum as well as wheezing. She was admitted for HAP, Afibe RVR, and CHF exacerbation. The patient was seen on morning rounds and again very briefly this afternoon; no family members were present at either time. This morning, the patient was seen while she was awake, resting comfortably on nasal cannula, eating her breakfast. She had only been off BiPAP for a few moments at the time of my assessment. She was noted to have audible wheezing while standing next to her. She was noted to have increased tachycardia while off of BiPAP (heart rate noted to increase from mid to high 90s to mid 120s). Overall, the patient does report that she is feeling better today with decreased lethargy, dyspnea, and malaise, though does continue to have a productive cough. She denies fever, chills, chest pain, palpitations, abdominal pain, nausea, vomiting, and diarrhea. She has no specific questions or concerns today. Discussed with nursing; continuing attempts to wean levophed; unfortunately patient continues to have difficulty maintaining adequate blood pressures w/o support. Reason For Visit: ATRIAL FIBRILLATION WITH RAPID VENTRICULAR RESPONS Physical Exam Vital Signs: Temp Pulse Resp BP Pulse Ox 99.4 F 111 H 24 H 108/65 96 10/21/18 16:00 10/21/18 16:00 10/21/18 16:00 10/21/18 16:00 10/21/18 16:00 Pulse Oximeter Continuous Start: 10/19/18 10:45 Freq: RTQ4 Status: Hold Protocol: Document 10/19/18 12:00 NIXON (Rec: 10/19/18 12:31 J [id number]) Pulse Oximetry Assessment Equipment Usage Equipment Standby Continuous SpO2 Machine # 0 Additional RT Notes Other pt is on nurse monitor and suraj vallejo is aware and ok with pt being on this monitor. Intake & Output 10/20/18 10/21/18 10/22/18 06:59 06:59 06:59 Intake Total 2645 1298 198 Output Total 6223 626 2417 Balance 1095 498 -1102 Weight 75 kg 77 kg 77 kg General appearance: PRESENT: no acute distress, hard of hearing, obese, well- developed, well-nourished Head exam: PRESENT: atraumatic, normocephalic Eye exam: PRESENT: conjunctiva pink, EOMI, PERRLA. ABSENT: scleral icterus Mouth exam: PRESENT: moist, tongue midline Neck exam: ABSENT: carotid bruit, JVD, lymphadenopathy, thyromegaly Respiratory exam: PRESENT: rhonchi, symmetrical, tachypnea, wheezes - Throughout, other - Continues to remain BiPAP dependent. ABSENT: rales Cardiovascular exam: PRESENT: irregular rhythm, +S1, +S2, tachycardia. ABSENT: systolic murmur Pulses: PRESENT: normal dorsalis pedis pul Vascular exam: PRESENT: normal capillary refill GI/Abdominal exam: PRESENT: normal bowel sounds, soft. ABSENT: distended, gu arding, mass, organolmegaly, rebound, tenderness Rectal exam: PRESENT: deferred Gentrourinary exam: PRESENT: indwelling catheter Extremities exam: PRESENT: full ROM. ABSENT: pedal edema Neurological exam: PRESENT: alert, awake, oriented to person, oriented to place, oriented to time, oriented to situation, CN II-XII grossly intact. ABSENT: motor sensory deficit Psychiatric exam: PRESENT: appropriate affect, normal mood. ABSENT: homicidal ideation, suicidal ideation Skin exam: PRESENT: dry, intact, warm. ABSENT: cyanosis, rash Results Laboratory Results: 10/21/18 04:25 10/21/18 04:25 10/20/18 10/21/18 10/21/18 21:38 04:25 04:25 WBC 6.2 6.7 RBC 2.86 L 2.93 L Hgb 8.7 L 8.9 L Hct 26.3 L 26.4 L MCV 92 90 MCH 30.4 30.3 MCHC 33.2 33.5 RDW 18.0 H 18.4 H Plt Count 142 L 149 L Seg Neutrophils % PLACEMENT DIRECTOR Lymphocytes % PLACEMENT DIRECTOR Monocytes % PLACEMENT DIRECTOR Eosinophils % PLACEMENT DIRECTOR Basophils % PLACEMENT DIRECTOR Absolute Neutrophils PLACEMENT DIRECTOR Absolute Lymphocytes PLACEMENT DIRECTOR Absolute Monocytes PLACEMENT DIRECTOR Absolute Eosinophils PLACEMENT DIRECTOR Absolute Basophils PLACEMENT DIRECTOR Sodium 136.7 L Potassium 4.9 Chloride 102 Carbon Dioxide 26 Anion Gap 9 BUN 70 H Creatinine 1.85 H Est GFR ( Amer) 32 L Est GFR (Non-Af Amer) 26 L Glucose 125 H Calcium 8.0 L 10/18/18 10/19/18 10/19/18 22:01 04:02 04:02 Creatine Kinase < 20 L CK-MB (CK-2) 0.33 Troponin I 0.050 0.067 NT-Pro-B Natriuret Pep 6020 H 10/19/18 10/19/18 10/19/18 09:30 09:30 15:47 Creatine Kinase < 20 L 50 CK-MB (CK-2) 0.68 Troponin I 0.070 NT-Pro-B Natriuret Pep 10/19/18 10/20/18 15:47 12:40 Creatine Kinase CK-MB (CK-2) 0.26 Troponin I 0.093 0.085 NT-Pro-B Natriuret Pep 5730 H Impressions: Chest CT 10/19/18 15:46 IMPRESSION: Limited airspace disease in the superior segment of the left lower lobe apparently secondary to the presence of a small left hilar mass. Cholelithiasis. Chest X-Ray 10/20/18 00:00 IMPRESSION: Increasing left perihilar infiltrate. Assessment and Plan - Diagnosis (1) Healthcare-associated pneumonia Is this a current diagnosis for this admission?: Yes Plan: Chest x-ray (10/20/2018) demonstrates increased left perihilar infiltrate Leukocytosis is improved; 12-> 5.6 Continues to have intermittent low-grade temperature; 99.9 this morning. TMax last 48 hrs: 102.2 ABG is reassuring; pH 7.37, pO2 83.2, pCO2 45, HCO3 25.7 Blood cultures negative at 48 hours. Sputum cultures pending. The patient has been upgraded to ICU status. She is provided supplemental oxygen and BiPAP as needed to maintain saturations >89% She is provided scheduled and as needed nebulizer treatments. She has been empirically placed on IV cefepime and vancomycin for coverage of healthcare associated pneumonia (recently at [facility] for short-term rehab). Mucinex twice daily. A flutter valve and incentive spirometer when not on BiPAP. Now w/ significant wheezing; patient denies Hx of COPD. Have started IV Solu- Medrol. Will obtain Pulmonology consultation. (2) Acute on chronic diastolic CHF (congestive heart failure) Is this a current diagnosis for this admission?: Yes Plan: Stabalized today; crackles and edema have resolved. ProBNP minimally improved 6000-> 5700 Echocardiogram pending. Cardiology consulted; appreciate Dr. Preciado's assistance. Diltiazem on hold per Dr. Preciado secondary HYPOtension. Upgraded to ICU; will provide Levophed (per Cardiology) for pressor support. Gentle diuresis with IV furosemide; dose decreased today. Continue Coreg. Lisinopril on hold 2/2 continued hypotension. Continue daily aspirin and statin therapy. Started on Eliquis 2.5 mg twice daily for AFIB anticoagulation and BAILEY VASC score 7 Cardiac diet. Daily weights. Cook cather placement for strict I&O's. (3) Anemia Is this a current diagnosis for this admission?: Yes Plan: Chronic; baseline Hgb 8.5 Hgb 8.5 on admission; waxing and waning. 8.5-> 7.6-> 8.9-> 8.8-> 7.7-> 8.9 Now s/p 1 unit PRBC No evidence of bleeding - denies BRB NM or black stool, no coffee ground emesis Continue to monitor and transfuse for Hgb <8.0 safety physician is consulted. MVI and Ferrous sulfate supplementation. (4) Atrial fibrillation with rapid ventricular response Is this a current diagnosis for this admission?: Yes Plan: Possibly secondary to HAP Initially on diltiazem gtt, transitioned to p.o diltiazem. Currently on hold per Dr. Preciado 2/2 HYPOtension. The patient [id number] score is 7, high risk for stroke Started on Eliquis 2.5 mg BID (5) Diabetes mellitus type 2 in obese Is this a current diagnosis for this admission?: Yes Plan: Accu-Cheks AC at bedtime Humalog sliding scale insulin 10 units Lantus nightly Cardiac diabetic diet (6) Acute kidney injury superimposed on chronic kidney disease Is this a current diagnosis for this admission?: Yes Plan: Stable. Likely stemming from acute CHF Baseline Cr 1.30 Admitted with Cr 1.47-> 1.58-> 1.81-> 1.85 As CHF resolved so should PARDEEP; optimize cardiac function Avoid nephrotoxic medications as able. Trend daily chemistries (7) Fever Qualifiers: Encounter type: initial encounter Is this a current diagnosis for this admission?: Yes Plan: Trending down. Secondary to healthcare associated PNA. Continues to have intermittent low-grade temperature; 99.9 this morning. TMax last 48 hrs: 102.2 Blood cultures negative at 48 hours. Cover with broad-spectrum antibiotics: Cefepime and vancomycin (8) Coronary artery disease Qualifiers: Coronary Disease-Associated Artery/Lesion type: unspecified vessel or lesion type Associated angina: without angina Is this a current diagnosis for this admission?: Yes Plan: Continue statin therapy Eliquis BID (for AFIB anticoagulation) (9) Hypertension Qualifiers: Hypertension type: essential hypertension Qualified Code(s): I10 - Essential (primary) hypertension Is this a current diagnosis for this admission?: Yes Plan: PMH HTN Patient was initially HYPOtensive while on cardizem gtt; improved following transition to p.o. cardizem. Unfortunately nowreoccured with clinical evidence of worsening CHF. p.o. Diltiazem on hold. Continue Coreg Remaining management as above Cardiology is consulted. - Time Time Spent with patient: 35 or more minutes Medications reviewed and adjusted accordingly: Yes Anticipated discharge: Home with Homehealth
--- NOTE | 2018-10-21 17:58 | ADVANCED CARE ---
- Diagnosis (1) Healthcare-associated pneumonia Diagnosis Current: Yes (2) Acute on chronic diastolic CHF (congestive heart failure) Diagnosis Current: Yes (3) Anemia Diagnosis Current: Yes (4) Atrial fibrillation with rapid ventricular response Diagnosis Current: Yes (5) Diabetes mellitus type 2 in obese Diagnosis Current: Yes (6) Acute kidney injury superimposed on chronic kidney disease Diagnosis Current: Yes (7) Fever Diagnosis Current: Yes (8) Coronary artery disease Diagnosis Current: Yes (9) Hypertension Diagnosis Current: Yes Resuscitation Status: Do Not Resuscitate Discussion: Met with the patient, her lifelong friend, and her brother, Ken Tate, yesterday prior to patient requiring upgrade to ICU status. The patient was al ert and oriented x4 conversational and with capacity. Discussed her worsening respiratory status and evidence for CHF exacerbation. The patient's blood pressure was tenuous and there was concern that she may require upgrade to ICU for pressor support. I did discuss with the patient that she was BiPAP dependent and that if her respiratory status were to deteriorate further the only other option was intubation/mechanical ventilation. She advised that she did have a completed DNR and MOST form at home. She identified her brother, Ken Tate as her surrogate healthcare decision maker. The patient confirmed DNR/DNI status. She did indicate that she would desire limited interventions including ICU admission, telemetry, pressor support, short-term IV fluids, and antibiotics as indicated. A new DNR form was completed. The patient and family were provided a new MOST form to review. They are advised that once she has decided upon short-term versus long-term antibiotics, IV fluids, and artificial means of nutrition, I would be happy to complete this form with her (family stated that they would like to review the MOST form further with her). All questions were addressed to their satisfaction. Reviewed with the patient this morning; MOST form is completed and on the chart. She is satisfied with the DNR/DNI decision with limited invasive interventions. Her brother, Ken, remains her surrogate decision maker. Care Planning Goals: DNR/DNI Limited invasive interventions (imaging, central line placement, telemetry, pressor support). Brother is identified as surrogate decision maker. Document(s) Completed: DNR MOST Time Spent: 30 min
[2018-10-21] MEDS: VANCOMYCIN HCL 1,000 MG in DEXTROSE 5%-WATER 250 ML IV SCH (21:37)
[2018-10-21] MEDS: METHYLPREDNISOLONE INJ 40 MG/1 ML SDV IV SCH (21:37)
[2018-10-21] MEDS: ATORVASTATIN CALCIUM 40 MG TABLET PO SCH (21:38)
--- NOTE | 2018-10-21 21:38 | Progress Note ---
Provider Note Provider Note: CARDIOLOGY PROGRESS NOTE BY Dr.LAKSHMI LEE ON 10/21/18.
--- NOTE | 2018-10-21 22:23 | XCELERA REPORT ---
[address] [address] Transthoracic Echocardiogram Report Name: PREETI ELIZABETH Age: 78 yrs Gender: Female : 1940 Patient Status: Inpatient Patient Location: ICU^601^A Study Date: 10/20/2018 08:24 PM Height: 62 in Weight: 165 lb BSA: 1.8 m2 Procedure: A two-dimensional transthoracic echocardiogram with color flow Doppler was performed. The study was technically difficult with many images being suboptimal in quality. Reason For Study: CHF History: CHF. Ordering Physician: JAY HOLMAN Performed By: Rain Clarke Interpretation Summary The left ventricle is normal in size. There is normal left ventricular wall thickness. LV EF is 65% Possible subtle inferior wall hypokinesis. There is no thrombus. The right ventricle is not well visualized secondary to technical limitations Suspect at least moderate RV enlargement. The right atrium is mild to moderately dilated. The left atrial size is normal. There is mild to moderate mitral annular calcification. There is no evidence of mitral valve prolapse. There is no vegetation seen on the mitral valve. There is no mitral valve stenosis. There is a mild to moderate amount of mitral regurgitation There is no aortic valvular vegetation. There is mild aortic stenosis There is a peak gradient of 36 mm of Hg. There is a trace amount of aortic regurgitation There is no tricuspid stenosis. There is a moderate to severe amount of tricuspid regurgitation There is servere pulmonary hypertension by echo RVSP is 68 to 73 mm of Hg , with RA mean of 15 to 20. There is no pulmonic valvular stenosis. There is a trace amount of pulmonic regurgitation The inferior vena cava appeared dilated and decreased < 50% with respiration (RAP 15-20 mmHg) There is no pericardial effusion. MMode/2D Measurements & Calculations RVDd: 2.8 cm LVIDd: 4.5 cm FS: 15.0 % Ao root diam: 2.7 cm IVSd: 1.1 cm LVIDs: 3.8 cm EDV(Teich): 90.4 mlAo root area: LVPWd: 1.1 cm ESV(Teich): 61.6 ml5.5 cm2 EF(Teich): 31.9 % LA dimension: 2.8 cm LVOT diam: 2.0 cm LVLd ap4: 5.4 cm SV(MOD-sp4): LVOT area: EDV(MOD-sp4): 17.0 ml 27.0 ml 3.1 cm2 LVLs ap4: 4.4 cm ESV(MOD-sp4): 10.0 ml EF(MOD-sp4): 63.0 % Doppler Measurements & Calculations MV E max aria: MV P1/2t max aria: Ao V2 max: LV V1 max P.6 cm/sec 165.6 cm/sec 299.8 cm/sec 2.5 mmHg MV A max aria: MV P1/2t: 55.1 msec Ao max PG: LV V1 max: 43.4 cm/sec MVA(P1/2t): 4.0 cm2 37.6 mmHg 79.6 cm/sec MV E/A: 3.4 MV dec slope: ZACARIAS(V,D): 0.82 cm2 880.1 cm/sec2 MV dec time: 0.20 sec PA V2 max: PI end-d aria: TR max aria: MV P1/2t-pr_phl: 108.6 cm/sec 109.9 cm/sec 363.8 cm/sec 55.1 msec PA max P.7 mmHg TR max P.9 mmHg Left Ventricle The left ventricle is normal in size. There is normal left ventricular wall thickness. LV EF is 65%. Left ventricular systolic function is normal. LV diastolic function could not be adequately assessed due to atrial fibrilation. Possible subtle inferior wall hypokinesis. There is no thrombus. Right Ventricle The right ventricle is not well visualized secondary to technical limitations. Suspect at least moderate RV enlargement. Atria The right atrium is mild to moderately dilated. The left atrial size is normal. Mitral Valve There is mild to moderate mitral annular calcification. There is no evidence of mitral valve prolapse. There is no vegetation seen on the mitral valve. There is no mitral valve stenosis. There is a mild to moderate amount of mitral regurgitation. Aortic Valve There is no aortic valvular vegetation. There is mild aortic stenosis. There is a peak gradient of 36 mm of Hg. There is a trace amount of aortic regurgitation. Tricuspid Valve There is no tricuspid stenosis. There is a moderate to severe amount of tricuspid regurgitation. There is servere pulmonary hypertension by echo. RVSP is 68 to 73 mm of Hg , with RA mean of 15 to 20. Pulmonic Valve There is no pulmonic valvular stenosis. There is a trace amount of pulmonic regurgitation. Great Vessels The aortic root is not well visualized. The inferior vena cava appeared dilated and decreased < 50% with respiration (RAP 15-20 mmHg). Effusions There is no pericardial effusion. : JAY HOLMAN Lakshmi
[2018-10-22] MEDS: LEVALBUTEROL HCL NEB 1.25 MG/3 ML AMPUL NEB SCH ×4 (01:48→20:50)
[2018-10-22 03:43] LABS: HEMATOCRIT 26.8 % (36.0-47.0); MEAN CORPUSCULAR HGB CONC 33.5 g/dL (32.0-36.0); MEAN CORPUSCULAR VOLUME 90 fl (80-97); PLATELET COUNT 158 10^3/uL (150-450); RED BLOOD COUNT 2.99 10^6/uL (3.72-5.28); RED CELL DISTRIBUTION WIDTH 18.1 % (11.5-14.0); WHITE BLOOD COUNT 4.7 10^3/uL (4.0-10.5)
[2018-10-22 04:02] LABS: ABSOLUTE MONOCYTES # (MANUAL) 0.1 10^3/uL (0.1-1.4); ABSOLUTE NEUTROPHILS# (MANUAL) 4.6 10^3/uL (1.7-8.2); BAND NEUTROPHILS % (MANUAL) 2 % (3-5); BASOPHILS % (MANUAL) 0 % (0-2); EOSINOPHILS % (MANUAL) 0 % (0-6); LYMPHOCYTES % (MANUAL) 1 % (13-45); MONOCYTES % (MANUAL) 2 % (3-13); SEGMENTED NEUTROPHILS % (MAN) 95 % (42-78); TOTAL CELLS COUNTED 100
[2018-10-22 04:03] LABS: ANISOCYTOSIS 2+; PLATELET COMMENT ADEQUATE
[2018-10-22 04:05] LABS: ANION GAP 9 (5-19); BLOOD UREA NITROGEN 63 mg/dL (7-20); CARBON DIOXIDE 25 mmol/L (22-30); CHLORIDE 100 mmol/L (98-107); GLUCOSE 290 mg/dL (75-110); POTASSIUM 4.7 mmol/L (3.6-5.0); SODIUM 133.9 mmol/L (137-145)
[2018-10-22] MEDS: LEVOTHYROXINE SODIUM 0.025 MG TABLET PO SCH (05:08)
[2018-10-22] MEDS: METHYLPREDNISOLONE INJ 40 MG/1 ML SDV IV SCH ×3 (05:09→21:34)
[2018-10-22] MEDS ORDERED: ONDANSETRON HCL INJ/PF 4 MG/2 ML SDV IV PRN (08:30)
[2018-10-22] MEDS: INSULIN LISPRO 100 UNIT/ML 3 ML VIAL SUBCUT SCH ×4 (08:38→21:35)
[2018-10-22] MEDS: FUROSEMIDE INJ/PF 20 MG/2 ML SDV IV SCH (08:40)
[2018-10-22] MEDS: FERROUS SULFATE 325 MG TABLET PO SCH ×2 (08:40→17:49)
[2018-10-22] MEDS ORDERED: LEVALBUTEROL HCL NEB 1.25 MG/3 ML AMPUL NEB PRN (10:55)
[2018-10-22] MEDS: MULTIVITAMIN TABLET PO SCH (12:15)
[2018-10-22] MEDS: GABAPENTIN 400 MG CAPSULE PO SCH ×2 (12:15→21:34)
[2018-10-22] MEDS: CARVEDILOL 6.25 MG TABLET PO SCH ×2 (12:16→21:34)
[2018-10-22] MEDS: GUAIFENESIN 600 MG TABLET.SA PO SCH ×2 (12:16→21:35)
[2018-10-22] MEDS: PANTOPRAZOLE SODIUM 40 MG TABLET.DR PO SCH (12:16)
[2018-10-22] MEDS: ACETYLCYSTEINE 20% SOLN 800 MG/4 ML VIAL.NEB NEB SCH ×2 (12:23→20:50)
[2018-10-22] MEDS: APIXABAN 2.5 MG TABLET PO SCH ×2 (12:26→17:49)
[2018-10-22] MEDS: FENOFIBRATE NANOCRYSTALLIZED 145 MG TABLET PO SCH (12:26)
[2018-10-22] MEDS: DEXTROSE 5%-WATER 250 ML with NOREPINEPHRINE BITARTRATE 4 MG IV PRN ×2 (17:53)
--- NOTE | 2018-10-22 18:09 | PDOC PROGRESS REPORT ---
Subjective Progress Note for:: 10/22/18 Subjective:: PREETI ELIZABETH is a 78 year old female with history of CHF, HTN, HLD, CAD who presented to the emergency room with acute onset of substernal chest pain with associated palpitations as well as dyspnea with recent cough productive of whitish sputum as well as wheezing. She was admitted for HAP, Afibe RVR, and CHF exacerbation. The patient was seen on morning rounds; no family members were present. The patient was seen while she was awake, resting comfortably on nasal cannula, eating her breakfast. She had only been off BiPAP for a few moments at the time of my assessment. She was noted to have audible wheezing while standing next to her that improved slightly with removing her pillow (?upper airway). She did not have increased tachycardia while off of BiPAP as she did yesterday. Overall, the patient appears much better today; more alert/interactive/conve rsational, talking about her dog home and desire to return there after discharge. She denies fever, chills, chest pain, palpitations, abdominal pain, nausea, vomiting, and diarrhea. She has no specific questions or concerns today. No concerns per nursing. Reason For Visit: ATRIAL FIBRILLATION WITH RAPID VENTRICULAR RESPONS Physical Exam Vital Signs: Temp Pulse Resp BP Pulse Ox 96.5 F L 99 19 113/50 L 98 10/22/18 16:00 10/22/18 16:00 10/22/18 16:34 10/22/18 16:34 10/22/18 16:34 Pulse Oximeter Continuous Start: 10/19/18 10:45 Freq: RTQ4 Status: Hold Protocol: Document 10/19/18 12:00 [facility] (Rec: 10/19/18 12:31 [facility] [id number]) Pulse Oximetry Assessment Equipment Usage Equipment Standby Continuous SpO2 Machine # 0 Additional RT Notes Other pt is on nurse monitor and manpower development manager yoni is aware and ok with pt being on this monitor. Intake & Output 10/21/18 10/22/18 10/23/18 06:59 06:59 06:59 Intake Total 1298 410 158 Output Total 800 3757 940 Balance 131 -2768 -872 Weight 77 kg 77.1 kg General appearance: PRESENT: no acute distress, cooperative, hard of hearing, obese, well-developed, well-nourished Head exam: PRESENT: atraumatic, normocephalic Eye exam: PRESENT: conjunctiva pink, EOMI, PERRLA. ABSENT: scleral icterus Mouth exam: PRESENT: moist, tongue midline Neck exam: ABSENT: carotid bruit, JVD, lymphadenopathy, thyromegaly Respiratory exam: PRESENT: prolonged expiratory phas, symmetrical, unlabored, wheezes. ABSENT: rales, rhonchi Cardiovascular exam: PRESENT: RRR, +S1, +S2. ABSENT: diastolic murmur, rubs, systolic murmur Pulses: PRESENT: normal dorsalis pedis pul Vascular exam: PRESENT: normal capillary refill GI/Abdominal exam: PRESENT: normal bowel sounds, soft. ABSENT: distended, guarding, mass, organolmegaly, rebound, tenderness Rectal exam: PRESENT: deferred Gentrourinary exam: PRESENT: indwelling catheter Extremities exam: PRESENT: full ROM. ABSENT: calf tenderness, clubbing, pedal edema Neurological exam: PRESENT: alert, awake, oriented to person, oriented to place, oriented to time, oriented to situation, CN II-XII grossly intact. ABSENT: motor sensory deficit Psychiatric exam: PRESENT: appropriate affect, normal mood. ABSENT: homicidal ideation, suicidal ideation Skin exam: PRESENT: dry, intact, warm. ABSENT: cyanosis, rash Results Laboratory Results: 10/22/18 03:33 10/22/18 03:33 10/22/18 10/22/18 03:33 03:33 WBC 4.7 RBC 2.99 L Hgb 9.0 L Hct 26.8 L MCV 90 MCH 30.0 MCHC 33.5 RDW 18.1 H Plt Count 158 Seg Neutrophils % Not Reportable Lymphocytes % Not Reportable Monocytes % Not Reportable Eosinophils % Not Reportable Basophils % Not Reportable Absolute Neutrophils Not Reportable Absolute Lymphocytes Not Reportable Absolute Monocytes Not Reportable Absolute Eosinophils Not Reportable Absolute Basophils Not Reportable Sodium 133.9 L Potassium 4.7 Chloride 100 Carbon Dioxide 25 Anion Gap 9 BUN 63 H Creatinine 1.52 H Est GFR ( Amer) 40 L Est GFR (Non-Af Amer) 33 L Glucose 290 H Calcium 8.0 L 10/18/18 10/19/18 10/19/18 22:01 04:02 04:02 Creatine Kinase < 20 L CK-MB (CK-2) 0.33 Troponin I 0.050 0.067 NT-Pro-B Natriuret Pep 6020 H 10/19/18 10/19/18 10/19/18 09:30 09:30 15:47 Creatine Kinase < 20 L 50 CK-MB (CK-2) 0.68 Troponin I 0.070 NT-Pro-B Natriuret Pep 10/19/18 10/20/18 10/22/18 15:47 12:40 03:33 Creatine Kinase CK-MB (CK-2) 0.26 Troponin I 0.093 0.085 NT-Pro-B Natriuret Pep 5730 H 4690 H Impressions: Chest CT 10/19/18 15:46 IMPRESSION: Limited airspace disease in the superior segment of the left lower lobe apparently secondary to the presence of a small left hilar mass. Cholelithiasis. Chest X-Ray 10/20/18 00:00 IMPRESSION: Increasing left perihilar infiltrate. Assessment and Plan - Diagnosis (1) Healthcare-associated pneumonia Is this a current diagnosis for this admission?: Yes Plan: Improved; patient appears more comfortable off BiPAP for short periods of time, continues to require supplemental oxygen (not on home O2 at baseline). Chest x-ray (10/20/2018) demonstrates increased left perihilar infiltrate Leukocytosis is improved; 12-> 5.6 Continues to have intermittent low-grade temperature; 99.9 this morning. TMax last 48 hrs: 102.2 ABG is reassuring; pH 7.37, pO2 83.2, pCO2 45, HCO3 25.7 Blood cultures negative at 72 hours. Sputum cultures C albicans The patient has been upgraded to ICU status. She is provided supplemental oxygen and BiPAP as needed to maintain saturations >89% She is provided scheduled and as needed nebulizer treatments. She has been empirically placed on IV cefepime and vancomycin for coverage of healthcare associated pneumonia (recently at [facility] for short-term rehab). Mucinex twice daily. A flutter valve and incentive spirometer when not on BiPAP. Continue IV Solu-Medrol (decreased wheezing today). Pulmonology consultation; appreciate Dr. Loco's assistance. Plans for repeat chest x-ray, ABG, laboratory work in the morning with potential bronchoscopy/biopsy once acute illness is resolved. (2) Acute on chronic diastolic CHF (congestive heart failure) Is this a current diagnosis for this admission?: Yes Plan: Improved. ProBNP minimally improved 6000-> 5700 Echocardiogram pending. Cardiology consulted; appreciate Dr. Preciado's assistance. Diltiazem on hold per Dr. Preciado secondary HYPOtension. Upgraded to ICU; will provide Levophed (per Cardiology) for management of right- sided heart failure. Continue Coreg. Lisinopril on hold 2/2 continued hypotension. Continue daily aspirin and statin therapy. Started on Eliquis 2.5 mg twice daily for AFIB anticoagulation and BAILEY VASC score 7. We will need to discuss risks of long-term anticoagulation with patient prior to discharge (history of GI bleed). Cardiac diet. Daily weights. Cook cather placement for strict I&O's. (3) Anemia Is this a current diagnosis for this admission?: Yes Plan: Chronic; baseline Hgb 8.5 Hgb 8.5 on admission; now stable at 9.0 s/p 1 unit PRBC No evidence of bleeding - denies BRB MD or black stool, no coffee ground emesis Continue to monitor and transfuse for Hgb <8.0 bioinformatics associate is consulted. MVI and Ferrous sulfate supplementation. (4) Atrial fibrillation with rapid ventricular response Is this a current diagnosis for this admission?: Yes Plan: Possibly secondary to HAP Initially on diltiazem gtt, transitioned to p.o diltiazem. Currently on hold per Dr. Preciado 2/2 HYPOtension. The patient [id number] score is 7, high risk for stroke Started on Eliquis 2.5 mg BID; will need to discuss risks of long-term anticoagulation prior to discharge. (5) Diabetes mellitus type 2 in obese Is this a current diagnosis for this admission?: Yes Plan: Accu-Cheks AC at bedtime Humalog sliding scale insulin 10 units Lantus nightly Cardiac diabetic diet (6) Acute kidney injury superimposed on chronic kidney disease Is this a current diagnosis for this admission?: Yes Plan: Slight improvement today. Likely stemming from acute CHF Baseline Cr 1.30 Admitted with Cr 1.47-> 1.58-> 1.81-> 1.85-> 1.52 As CHF resolved so should PARDEEP; optimize cardiac function Avoid nephrotoxic medications as able. Trend daily chemistries (7) Fever Qualifiers: Encounter type: initial encounter Is this a current diagnosis for this admission?: Yes Plan: Trending down; now afebrile times 48 hours. (Of note, low temperatures documented last 24 hours have been axillary). Secondary to healthcare associated PNA. Blood cultures negative at 72 hours. Cover with broad-spectrum antibiotics: Cefepime and vancomycin (8) Coronary artery disease Qualifiers: Coronary Disease-Associated Artery/Lesion type: unspecified vessel or lesion type Associated angina: without angina Is this a current diagnosis for this admission?: Yes Plan: Continue statin therapy (9) Hypertension Qualifiers: Hypertension type: essential hypertension Qualified Code(s): I10 - Essential (primary) hypertension Is this a current diagnosis for this admission?: Yes Plan: PMH HTN Patient was initially HYPOtensive while on cardizem gtt; improved following transition to p.o. cardizem. Unfortunately nowreoccured with clinical evidence of worsening CHF. p.o. Diltiazem on hold. Continue Coreg Remaining management as above Cardiology is consulted. (10) Hilar mass Is this a current diagnosis for this admission?: Yes Plan: Pulmonology consultation; appreciate Dr. Loco's assistance. Plans for repeat chest x-ray, ABG, laboratory work in the morning with potential bronchoscopy/biopsy once acute illness is resolved. Patient does have a remote history of tobacco use (1 pack/day x 15 years; stopped approximately 20 years ago). - Time Time Spent with patient: 35 or more minutes Medications reviewed and adjusted accordingly: Yes Anticipated discharge: Home with Homehealth
[2018-10-22] MEDS: CEFEPIME 2 GM/D5W RTU 2 GM/50 ML RTUPB IV SCH (18:15)
--- NOTE | 2018-10-22 21:29 | Progress Note ---
Provider Note Provider Note: CARDIOLOGY PROGRESS NOTE by Dr. Viviana Kaplan on 10/22/2018.
[2018-10-22] MEDS: INSULIN GLARGINE,HUM.REC.ANLOG 1,000 UNIT/10 ML VIAL SUBCUT SCH (21:35)
[2018-10-22] MEDS: ATORVASTATIN CALCIUM 40 MG TABLET PO SCH (21:35)
[2018-10-22] MEDS: VANCOMYCIN HCL 1,000 MG in DEXTROSE 5%-WATER 250 ML IV SCH (21:42)
[2018-10-22 22:16] LABS: VANCOMYCIN,TROUGH 16.2 ug/mL (5.0-20.0)
[2018-10-23] MEDS: LEVALBUTEROL HCL NEB 1.25 MG/3 ML AMPUL NEB SCH ×4 (02:29→20:09)
[2018-10-23 04:53] LABS: HEMATOCRIT 27.3 % (36.0-47.0); HEMOGLOBIN 9.2 g/dL (12.0-15.5); MEAN CORPUSCULAR HEMOGLOBIN 30.2 pg (27.0-33.4); MEAN CORPUSCULAR HGB CONC 33.8 g/dL (32.0-36.0); MEAN CORPUSCULAR VOLUME 89 fl (80-97); PLATELET COUNT 171 10^3/uL (150-450); RED BLOOD COUNT 3.06 10^6/uL (3.72-5.28); RED CELL DISTRIBUTION WIDTH 17.7 % (11.5-14.0); WHITE BLOOD COUNT 8.6 10^3/uL (4.0-10.5)
[2018-10-23 05:01] LABS: ARTERIAL BLOOD BASE EXCESS -0.3 mmol/L; ARTERIAL BLOOD H2CO3 1.33 mmol/L (1.05-1.35); ARTERIAL BLOOD HCO3 25.1 mmol/L (20-24); ARTERIAL BLOOD O2 SATURATION 98.4 % (94-98); ARTERIAL BLOOD PCO2 44.3 mmHg (35-45); ARTERIAL BLOOD PH 7.37 (7.35-7.45); ARTERIAL BLOOD PO2 125.2 mmHg (80-100); ARTERIAL BLOOD TOTAL CO2 26.5 mmol/L (21-25)
[2018-10-23 05:04] LABS: ARTERIAL BLOOD FIO2 30%
[2018-10-23 05:11] LABS: ABSOLUTE LYMPHOCYTES# (MANUAL) 0.3 10^3/uL (0.5-4.7); ABSOLUTE MONOCYTES # (MANUAL) 0.3 10^3/uL (0.1-1.4); ABSOLUTE NEUTROPHILS# (MANUAL) 7.9 10^3/uL (1.7-8.2); BASOPHILS % (MANUAL) 0 % (0-2); EOSINOPHILS % (MANUAL) 0 % (0-6); LYMPHOCYTES % (MANUAL) 4 % (13-45); MONOCYTES % (MANUAL) 4 % (3-13); SEGMENTED NEUTROPHILS % (MAN) 92 % (42-78); TOTAL CELLS COUNTED 100
[2018-10-23 05:12] LABS: ANISOCYTOSIS 1+; HYPOCHROMASIA 1+; PLATELET COMMENT ADEQUATE
[2018-10-23 05:13] LABS: ALANINE AMINOTRANSFERASE 32 U/L (9-52); ALBUMIN 2.7 g/dL (3.5-5.0); ALKALINE PHOSPHATASE 76 U/L (38-126); ANION GAP 8 (5-19); ASPARTATE AMINO TRANSFERASE 23 U/L (14-36); BILIRUBIN,DIRECT 0.2 mg/dL (0.0-0.4); BILIRUBIN,TOTAL 0.4 mg/dL (0.2-1.3); BLOOD UREA NITROGEN 68 mg/dL (7-20); CALCIUM 8.2 mg/dL (8.4-10.2); CARBON DIOXIDE 27 mmol/L (22-30); CHLORIDE 102 mmol/L (98-107); GLUCOSE 199 mg/dL (75-110); POTASSIUM 4.6 mmol/L (3.6-5.0); SODIUM 136.9 mmol/L (137-145); TOTAL PROTEIN 5.5 g/dL (6.3-8.2)
[2018-10-23] MEDS: LEVOTHYROXINE SODIUM 0.025 MG TABLET PO SCH (05:31)
[2018-10-23] MEDS: METHYLPREDNISOLONE INJ 40 MG/1 ML SDV IV SCH ×3 (05:32→21:37)
--- NOTE | 2018-10-23 06:48 | RADIOLOGY REPORT (SQ) ---
EXAM DESCRIPTION: XR CHEST 1 VIEW COMPLETED DATE/TME: 10/23/2018 06:00 CLINICAL HISTORY: 78 years Female, pna COMPARISON: 3 days prior. NUMBER OF VIEWS/TECHNIQUE: 1/AP FINDINGS: Mild left perihilar opacity. Interval improvement. Normal cardiac silhouette. Atherosclerotic vascular disease. No pneumothorax. Stable bony thorax. IMPRESSION: Mild left perihilar opacity. Interval improvement.
[2018-10-23] MEDS: ACETYLCYSTEINE 20% SOLN 800 MG/4 ML VIAL.NEB NEB SCH ×2 (08:20→20:09)
[2018-10-23] MEDS: INSULIN LISPRO 100 UNIT/ML 3 ML VIAL SUBCUT SCH ×4 (08:40→21:39)
[2018-10-23] MEDS: CARVEDILOL 6.25 MG TABLET PO SCH ×2 (10:44→21:39)
[2018-10-23] MEDS: GUAIFENESIN 600 MG TABLET.SA PO SCH ×2 (10:44→21:37)
[2018-10-23] MEDS: MULTIVITAMIN TABLET PO SCH (10:44)
[2018-10-23] MEDS: GABAPENTIN 400 MG CAPSULE PO SCH ×2 (10:44→21:39)
[2018-10-23] MEDS: PANTOPRAZOLE SODIUM 40 MG TABLET.DR PO SCH (10:44)
[2018-10-23] MEDS: FUROSEMIDE INJ/PF 20 MG/2 ML SDV IV SCH (10:46)
[2018-10-23] MEDS: FERROUS SULFATE 325 MG TABLET PO SCH ×2 (10:46→17:41)
[2018-10-23] MEDS: APIXABAN 2.5 MG TABLET PO SCH ×2 (10:48→17:41)
[2018-10-23] MEDS: FENOFIBRATE NANOCRYSTALLIZED 145 MG TABLET PO SCH (10:48)
[2018-10-23] MEDS: DILTIAZEM HCL 60 MG TABLET PO SCH ×3 (11:30→21:37)
[2018-10-23] MEDS: CEFEPIME 2 GM/D5W RTU 2 GM/50 ML RTUPB IV SCH (17:41)
--- NOTE | 2018-10-23 18:02 | PDOC PROGRESS REPORT ---
Subjective Progress Note for:: 10/23/18 Subjective:: PREETI ELIZABETH is a 78 year old female with history of CHF, HTN, HLD, CAD who presented to the emergency room with acute onset of substernal chest pain with associated palpitations as well as dyspnea with recent cough productive of whitish sputum as well as wheezing. She was admitted for HAP, Afibe RVR, and CHF exacerbation. The patient was seen on morning rounds; no family members were present. The patient was seen while she was awake, resting comfortably on nasal cannula. She continues to appear improved; increased alertness, energy, and participation in conversation. She reports decrease in sputum production, though continues to feel short of breath at rest and easily fatigued. She denies fever, chills, chest pain, palpitations, abdominal pain, nausea, vomiting, and diarrhea. She has no specific questions or concerns today. No concerns per nursing. Reason For Visit: ATRIAL FIBRILLATION WITH RAPID VENTRICULAR RESPONS Physical Exam Vital Signs: Temp Pulse Resp BP Pulse Ox 97.0 F 72 10 L 129/54 H 99 10/23/18 16:00 10/23/18 16:00 10/23/18 16:23 10/23/18 16:23 10/23/18 16:23 Pulse Oximeter Continuous Start: 10/19/18 10:45 Freq: RTQ4 Status: Hold Protocol: Document 10/19/18 12:00 [facility] (Rec: 10/19/18 12:31 [facility] [id number]) Pulse Oximetry Assessment Equipment Usage Equipment Standby Continuous SpO2 Machine # 0 Additional RT Notes Other pt is on nurse monitor and suraj vallejo is aware and ok with pt being on this monitor. Intake & Output 10/22/18 10/23/18 10/24/18 06:59 06:59 06:59 Intake Total 710 208 474 Output Total 0783 5248 630 Balance -0145 -3007 -156 Weight 77.1 kg 76.3 kg General appearance: PRESENT: no acute distress, cooperative, hard of hearing, obese, well-developed, well-nourished Head exam: PRESENT: atraumatic, normocephalic Eye exam: PRESENT: conjunctiva pink, EOMI, PERRLA. ABSENT: scleral icterus Mouth exam: PRESENT: moist, tongue midline Neck exam: ABSENT: carotid bruit, JVD, lymphadenopathy, thyromegaly Respiratory exam: PRESENT: prolonged expiratory phas, symmetrical, unlabored, wheezes - slight improvement today, other - supplemental oxygen. ABSENT: rales, rhonchi Cardiovascular exam: PRESENT: irregular rhythm, +S1, +S2. ABSENT: diastolic murmur, rubs, systolic murmur Pulses: PRESENT: normal dorsalis pedis pul Vascular exam: PRESENT: normal capillary refill GI/Abdominal exam: PRESENT: normal bowel sounds, soft. ABSENT: distended, guarding, mass, organolmegaly, rebound, tenderness Rectal exam: PRESENT: deferred Gentrourinary exam: PRESENT: indwelling catheter Extremities exam: PRESENT: full ROM. ABSENT: calf tenderness, clubbing, pedal edema Neurological exam: PRESENT: alert, awake, oriented to person, oriented to place, oriented to time, oriented to situation, CN II-XII grossly intact. ABSENT: motor sensory deficit Psychiatric exam: PRESENT: appropriate affect, normal mood. ABSENT: homicidal ideation, suicidal ideation Skin exam: PRESENT: dry, intact, warm. ABSENT: cyanosis, rash Results Laboratory Results: 10/23/18 04:35 10/23/18 04:35 10/23/18 10/23/18 10/23/18 04:35 04:35 04:50 WBC 8.6 RBC 3.06 L Hgb 9.2 L Hct 27.3 L MCV 89 MCH 30.2 MCHC 33.8 RDW 17.7 H Plt Count 171 Seg Neutrophils % Not Reportable Lymphocytes % Not Reportable Monocytes % Not Reportable Eosinophils % Not Reportable Basophils % Not Reportable Absolute Neutrophils Not Reportable Absolute Lymphocytes Not Reportable Absolute Monocytes Not Reportable Absolute Eosinophils Not Reportable Absolute Basophils Not Reportable Carbonic Acid 1.33 HCO3/H2CO3 Ratio 18:1 ABG pH 7.37 ABG pCO2 44.3 ABG pO2 125.2 H ABG HCO3 25.1 H ABG O2 Saturation 98.4 H ABG Base Excess -0.3 FiO2 30% Sodium 136.9 L Potassium 4.6 Chloride 102 Carbon Dioxide 27 Anion Gap 8 BUN 68 H Creatinine 1.55 H Est GFR ( Amer) 39 L Est GFR (Non-Af Amer) 32 L Glucose 199 H Calcium 8.2 L Magnesium 2.0 Total Bilirubin 0.4 AST 23 ALT 32 Alkaline Phosphatase 76 Total Protein 5.5 L Albumin 2.7 L 10/21/18 09:40 Sputum Gram Stain - Final 10/21/18 09:40 Sputum Sputum Culture - Final C.albicans/C.dubliniensis Normal Paula 10/18/18 10/19/18 10/19/18 22:01 04:02 04:02 Creatine Kinase < 20 L CK-MB (CK-2) 0.33 Troponin I 0.050 0.067 NT-Pro-B Natriuret Pep 6020 H 10/19/18 10/19/18 10/19/18 09:30 09:30 15:47 Creatine Kinase < 20 L 50 CK-MB (CK-2) 0.68 Troponin I 0.070 NT-Pro-B Natriuret Pep 10/19/18 10/20/18 10/22/18 15:47 12:40 03:33 Creatine Kinase CK-MB (CK-2) 0.26 Troponin I 0.093 0.085 NT-Pro-B Natriuret Pep 5730 H 4690 H Impressions: Chest CT 10/19/18 15:46 IMPRESSION: Limited airspace disease in the superior segment of the left lower lobe apparently secondary to the presence of a small left hilar mass. Cholelithiasis. Chest X-Ray 10/23/18 06:00 IMPRESSION: Mild left perihilar opacity. Interval improvement. Assessment and Plan - Diagnosis (1) Healthcare-associated pneumonia Is this a current diagnosis for this admission?: Yes Plan: Improved; patient appears more comfortable off BiPAP for short periods of time, continues to require supplemental oxygen (not on home O2 at baseline). Chest x-ray (10/20/2018) demonstrates increased left perihilar infiltrate Repeat CXR (10/23/18) shows mild left perihilar opacity; interval improvement. Leukocytosis has resolved. Now afebrile x 24 hrs. ABG is reassuring; pH 7.37, pO2 83.2, pCO2 45, HCO3 25.7 Blood cultures negative at 4 days Sputum cultures C albicans The patient has been upgraded to ICU status. She is provided supplemental oxygen and BiPAP as needed to maintain saturations >89% She is provided scheduled and as needed nebulizer treatments. She has been empirically placed on IV cefepime and vancomycin for coverage of healthcare associated pneumonia (recently at [facility] for short-term rehab); will discuss deescalation of antibiotics with pulmonology. Mucinex twice daily. A flutter valve and incentive spirometer when not on BiPAP. Continue IV Solu-Medrol (decreased wheezing today). Pulmonology consultation; appreciate Dr. Loco's assistance. Plans for potential bronchoscopy/biopsy once acute illness is resolved. Will hold Xarelto. (2) Acute on chronic diastolic CHF (congestive heart failure) Is this a current diagnosis for this admission?: Yes Plan: Improved. ProBNP minimally improved 6000-> 5700 Echocardiogram pending. Cardiology consulted; appreciate Dr. Preciado's assistance. Diltiazem resumed per Dr. Preciado . Upgraded to ICU; Levophed (per Cardiology) for management of right-sided heart failure. Titration per Dr. Preciado. Continue Coreg. Lisinopril on hold 2/2 continued hypotension. Continue daily aspirin and statin therapy. Started on Eliquis 2.5 mg twice daily for AFIB anticoagulation and BAILEY VASC score 7. We will need to discuss risks of long-term anticoagulation with patient prior to discharge (history of GI bleed). On hold for planned bronchoscopy/biopsy. Cardiac diet. Daily weights. Cook cather placement for strict I&O's. (3) Anemia Is this a current diagnosis for this admission?: Yes Plan: Chronic; baseline Hgb 8.5 Hgb 8.5 on admission; now stable at 9.0 s/p 1 unit PRBC No evidence of bleeding - denies BRB [place] or black stool, no coffee ground emesis Continue to monitor and transfuse for Hgb <8.0 environmental resource specialist is consulted. MVI and Ferrous sulfate supplementation. (4) Atrial fibrillation with rapid ventricular response Is this a current diagnosis for this admission?: Yes Plan: Possibly secondary to HAP Initially on diltiazem gtt, transitioned to p.o diltiazem. Currently on hold per Dr. Preciado 2/2 HYPOtension. The patient [id number] score is 7, high risk for stroke Started on Eliquis 2.5 mg BID; will need to discuss risks of long-term anticoagulation prior to discharge. On hold for planned bronchoscopy/biopsy. (5) Diabetes mellitus type 2 in obese Is this a current diagnosis for this admission?: Yes Plan: Accu-Cheks AC at bedtime Humalog sliding scale insulin 10 units Lantus nightly Cardiac diabetic diet (6) Acute kidney injury superimposed on chronic kidney disease Is this a current diagnosis for this admission?: Yes Plan: Approaching baseline. Likely stemming from acute CHF Baseline Cr 1.30 Admitted with Cr 1.47-> 1.58-> 1.81-> 1.85-> 1.52-> 1.55 Optimize cardiac function Avoid nephrotoxic medications as able. Trend daily chemistries (7) Fever Qualifiers: Encounter type: initial encounter Is this a current diagnosis for this admission?: Yes Plan: Trending down; now afebrile times 48 hours. (Of note, low temperatures documented last 24 hours have been axillary). Secondary to healthcare associated PNA. Blood cultures negative at 4 days. Cover with broad-spectrum antibiotics: Cefepime and vancomycin. No Hx of MRSA; will discuss deescalating antibiotics with pulmonology tomorrow. (8) Coronary artery disease Qualifiers: Coronary Disease-Associated Artery/Lesion type: unspecified vessel or lesion type Associated angina: without angina Is this a current diagnosis for this admission?: Yes Plan: Continue statin therapy (9) Hypertension Qualifiers: Hypertension type: essential hypertension Qualified Code(s): I10 - Essential (primary) hypertension Is this a current diagnosis for this admission?: Yes Plan: PMH HTN Diltiazem resumed per Dr. Preciado. Continue Coreg Remaining management as above Cardiology is consulted. (10) Hilar mass Is this a current diagnosis for this admission?: Yes Plan: Pulmonology consultation; appreciate Dr. Loco's assistance. Plans for bronchoscopy/biopsy once acute illness is resolved. Patient does have a remote history of tobacco use (1 pack/day x 15 years; stopped approximately 20 years ago). Xarelto held today to allow for washout and potential bronchoscopy early next week. - Time Time Spent with patient: 35 or more minutes Medications reviewed and adjusted accordingly: Yes Anticipated discharge: Home with Homehealth
[2018-10-23] MEDS: ATORVASTATIN CALCIUM 40 MG TABLET PO SCH (21:39)
[2018-10-23] MEDS: DEXTROSE 5%-WATER 250 ML with NOREPINEPHRINE BITARTRATE 4 MG IV PRN ×2 (21:40)
[2018-10-23] MEDS: VANCOMYCIN HCL 1,000 MG in DEXTROSE 5%-WATER 250 ML IV SCH (21:41)
[2018-10-23] MEDS ORDERED: INSULIN GLARGINE,HUM.REC.ANLOG 1,000 UNIT/10 ML VIAL (PYX) SUBCUT ONE (21:52)
[2018-10-23] MEDS: INSULIN GLARGINE,HUM.REC.ANLOG 1,000 UNIT/10 ML VIAL SUBCUT SCH (21:53)
[2018-10-24] MEDS: LEVALBUTEROL HCL NEB 1.25 MG/3 ML AMPUL NEB SCH ×4 (02:14→19:49)
[2018-10-24] MEDS: DILTIAZEM HCL 60 MG TABLET PO SCH ×3 (06:00→22:17)
[2018-10-24] MEDS: METHYLPREDNISOLONE INJ 40 MG/1 ML SDV IV SCH ×3 (06:01→22:18)
[2018-10-24] MEDS: LEVOTHYROXINE SODIUM 0.025 MG TABLET PO SCH (06:01)
[2018-10-24 06:06] LABS: HEMATOCRIT 26.5 % (36.0-47.0); HEMOGLOBIN 9.1 g/dL (12.0-15.5); MEAN CORPUSCULAR HEMOGLOBIN 30.5 pg (27.0-33.4); MEAN CORPUSCULAR HGB CONC 34.2 g/dL (32.0-36.0); MEAN CORPUSCULAR VOLUME 89 fl (80-97); PLATELET COUNT 180 10^3/uL (150-450); RED BLOOD COUNT 2.98 10^6/uL (3.72-5.28); RED CELL DISTRIBUTION WIDTH 17.7 % (11.5-14.0); WHITE BLOOD COUNT 9.9 10^3/uL (4.0-10.5)
[2018-10-24 06:21] LABS: ANION GAP 7 (5-19); BLOOD UREA NITROGEN 74 mg/dL (7-20); CALCIUM 8.1 mg/dL (8.4-10.2); CARBON DIOXIDE 28 mmol/L (22-30); CHLORIDE 104 mmol/L (98-107); GLUCOSE 152 mg/dL (75-110); POTASSIUM 4.7 mmol/L (3.6-5.0); SODIUM 139.2 mmol/L (137-145)
[2018-10-24] MEDS: INSULIN LISPRO 100 UNIT/ML 3 ML VIAL SUBCUT SCH ×4 (07:42→22:19)
[2018-10-24] MEDS: ACETYLCYSTEINE 20% SOLN 800 MG/4 ML VIAL.NEB NEB SCH ×2 (08:47→19:49)
[2018-10-24] MEDS: PANTOPRAZOLE SODIUM 40 MG TABLET.DR PO SCH (09:22)
[2018-10-24] MEDS: FENOFIBRATE NANOCRYSTALLIZED 145 MG TABLET PO SCH (09:22)
[2018-10-24] MEDS: CARVEDILOL 6.25 MG TABLET PO SCH ×2 (09:22→22:18)
[2018-10-24] MEDS: GUAIFENESIN 600 MG TABLET.SA PO SCH ×2 (09:23→22:18)
[2018-10-24] MEDS: MULTIVITAMIN TABLET PO SCH (09:23)
[2018-10-24] MEDS: GABAPENTIN 400 MG CAPSULE PO SCH ×2 (09:23→22:17)
[2018-10-24] MEDS: FERROUS SULFATE 325 MG TABLET PO SCH ×2 (09:23→17:33)
[2018-10-24] MEDS: FUROSEMIDE INJ/PF 20 MG/2 ML SDV IV SCH (09:24)
[2018-10-24] MEDS ORDERED: ACETAMINOPHEN 325 MG TABLET PO PRN (11:24)
[2018-10-24] MEDS ORDERED: ACETAMINOPHEN 650 MG SUPP.RECT PR PRN (11:24)
[2018-10-24] MEDS ORDERED: VALACYCLOVIR HCL 500 MG TABLET PO ONE (11:45)
[2018-10-24 12:24] LABS: APPEARANCE,URINE SLIGHTLY-CLOUDY; BILIRUBIN,URINE NEGATIVE (NEGATIVE); COLOR,URINE YELLOW; GLUCOSE, URINE NEGATIVE (NEGATIVE); KETONES,URINE NEGATIVE (NEGATIVE); LEUKOCYTE ESTERASE,URINE NEGATIVE (NEGATIVE); NITRITE,URINE NEGATIVE (NEGATIVE); PROTEIN,URINE 30 mg/dL (NEGATIVE); URINE SPECIFIC GRAVITY 1.008; UROBILINOGEN,URINE NEGATIVE mg/dL (<2.0)
[2018-10-24] MEDS: PHENAZOPYRIDINE HCL 100 MG TABLET PO SCH ×2 (13:03→22:20)
--- NOTE | 2018-10-24 16:33 | PDOC PROGRESS REPORT ---
Subjective Progress Note for:: 10/24/18 Subjective:: PREETI ELIZABETH is a 78 year old female with history of CHF, HTN, HLD, CAD who presented to the emergency room with acute onset of substernal chest pain with associated palpitations as well as dyspnea with recent cough productive of whitish sputum as well as wheezing. She was admitted for HAP, Afibe RVR, and CHF exacerbation. The patient was seen on morning rounds; no family members were present. The patient was seen while she was awake, resting comfortably on nasal cannula. She continues to appear improved. She reports decrease in sputum production, though continues to have a frequent (now nonproductive) cough. She did not utilize BiPAP last night. The patient reports bladder discomfort; believes it is related to the Cook. She also believes that she may be developing a fever blister to her right upper lip. Otherwise, she states that she is feeling much better and has no new questions or concerns. She denies fever, chills, chest pain, palpitations, vomiting, and diarrhea. No concerns per nursing; has been weaned off Levophed. Blood pressures are soft but with appropriate MAP. Reason For Visit: ATRIAL FIBRILLATION WITH RAPID VENTRICULAR RESPONS Physical Exam Vital Signs: Temp Pulse Resp BP Pulse Ox 96.5 F L 84 10 L 98/73 L 99 10/24/18 12:00 10/24/18 14:44 10/24/18 16:00 10/24/18 15:27 10/24/18 16:00 Pulse Oximeter Continuous Start: 10/19/18 10:45 Freq: RTQ4 Status: Hold Protocol: Document 10/19/18 12:00 [facility] (Rec: 10/19/18 12:31 [facility] [id number]) Pulse Oximetry Assessment Equipment Usage Equipment Standby Continuous SpO2 Machine # 0 Additional RT Notes Other pt is on nurse monitor and pharmacy technician inpatient yoni is aware and ok with pt being on this monitor. Intake & Output 10/23/18 10/24/18 10/25/18 06:59 06:59 06:59 Intake Total 458 732 83 Output Total 0867 7380 250 Balance -1187 -573 -387 Weight 76.3 kg 77 kg General appearance: PRESENT: no acute distress, hard of hearing, obese, well- developed, well-nourished Head exam: PRESENT: atraumatic, normocephalic Eye exam: PRESENT: conjunctiva pink, EOMI, PERRLA. ABSENT: scleral icterus Mouth exam: PRESENT: moist, tongue midline Neck exam: ABSENT: carotid bruit, JVD, lymphadenopathy, thyromegaly Respiratory exam: PRESENT: prolonged expiratory phas, symmetrical, unlabored, wheezes, other - Supplemental oxygen via nasal cannula. ABSENT: rales, rhonchi Cardiovascular exam: PRESENT: irregular rhythm, +S1, +S2. ABSENT: diastolic murmur, rubs, systolic murmur Pulses: PRESENT: normal dorsalis pedis pul Vascular exam: PRESENT: normal capillary refill GI/Abdominal exam: PRESENT: normal bowel sounds, soft. ABSENT: distended, guarding, mass, organolmegaly, rebound, tenderness Rectal exam: PRESENT: deferred Gentrourinary exam: PRESENT: indwelling catheter Extremities exam: PRESENT: full ROM. ABSENT: calf tenderness, clubbing, pedal edema Neurological exam: PRESENT: alert, awake, oriented to person, oriented to place, oriented to time, oriented to situation, CN II-XII grossly intact. ABSENT: motor sensory deficit Psychiatric exam: PRESENT: appropriate affect, normal mood. ABSENT: homicidal ideation, suicidal ideation Skin exam: PRESENT: dry, intact, warm. ABSENT: cyanosis, rash Results Laboratory Results: 10/24/18 05:55 10/24/18 05:55 10/24/18 10/24/18 10/24/18 05:55 05:55 11:55 WBC 9.9 RBC 2.98 L Hgb 9.1 L Hct 26.5 L MCV 89 MCH 30.5 MCHC 34.2 RDW 17.7 H Plt Count 180 Sodium 139.2 Potassium 4.7 Chloride 104 Carbon Dioxide 28 Anion Gap 7 BUN 74 H Creatinine 1.54 H Est GFR ( Amer) 39 L Est GFR (Non-Af Amer) 32 L Glucose 152 H Calcium 8.1 L Urine Color YELLOW Urine Appearance SLIGHTLY-CLOUDY Urine pH 5.0 Ur Specific [place] 1.008 Urine Protein 30 H Urine Glucose (UA) NEGATIVE Urine Ketones NEGATIVE Urine Blood LARGE H Urine Nitrite NEGATIVE Ur Leukocyte Esterase NEGATIVE Urine WBC (Auto) 5 Urine RBC (Auto) 120 10/19/18 15:47 Blood Blood Culture - Final NO GROWTH IN 5 DAYS 10/18/18 10/19/18 10/19/18 22:01 04:02 04:02 Creatine Kinase < 20 L CK-MB (CK-2) 0.33 Troponin I 0.050 0.067 NT-Pro-B Natriuret Pep 6020 H 10/19/18 10/19/18 10/19/18 09:30 09:30 15:47 Creatine Kinase < 20 L 50 CK-MB (CK-2) 0.68 Troponin I 0.070 NT-Pro-B Natriuret Pep 10/19/18 10/20/18 10/22/18 15:47 12:40 03:33 Creatine Kinase CK-MB (CK-2) 0.26 Troponin I 0.093 0.085 NT-Pro-B Natriuret Pep 5730 H 4690 H Impressions: Chest CT 10/19/18 15:46 IMPRESSION: Limited airspace disease in the superior segment of the left lower lobe apparently secondary to the presence of a small left hilar mass. Cholelithiasis. Chest X-Ray 10/23/18 06:00 IMPRESSION: Mild left perihilar opacity. Interval improvement. Assessment and Plan - Diagnosis (1) Healthcare-associated pneumonia Is this a current diagnosis for this admission?: Yes Plan: Improved; patient appears more comfortable off BiPAP for short periods of time, continues to require supplemental oxygen (not on home O2 at baseline). Chest x-ray (10/20/2018) demonstrates increased left perihilar infiltrate Repeat CXR (10/23/18) shows mild left perihilar opacity; interval improvement. Leukocytosis has resolved. Now afebrile x 24 hrs. ABG is reassuring; pH 7.37, pO2 83.2, pCO2 45, HCO3 25.7 Blood cultures negative at 4 days Sputum cultures C albicans Will downgrade to telemetry today. She is provided supplemental oxygen and BiPAP as needed to maintain saturations >89% She is provided scheduled and as needed nebulizer treatments. She was empirically placed on IV cefepime and vancomycin for coverage of healthcare associated pneumonia. Spoke with Dr. Loco today; will discontinue vancomycin. Mucinex twice daily. Flutter valve and incentive spirometer when not on BiPAP. Continue IV Solu-Medrol (decreased wheezing today); will begin weaning. Pulmonology consultation; appreciate Dr. Loco's assistance. Plans for potential bronchoscopy/biopsy once acute illness is resolved. Will hold Xarelto. (2) Acute on chronic diastolic CHF (congestive heart failure) Is this a current diagnosis for this admission?: Yes Plan: Improved. ProBNP minimally improved 6000-> 5700 Echocardiogram pending. Cardiology consulted; appreciate Dr. Preciado's assistance. Diltiazem resumed per Dr. Preciado . Dr. Preciado has discontinued Levophed. Continue Coreg. Lisinopril on hold 2/2 continued hypotension. Continue daily aspirin and statin therapy. Started on Eliquis 2.5 mg twice daily for AFIB anticoagulation and BAILEY VASC score 7. We will need to discuss risks of long-term anticoagulation with patient prior to discharge (history of GI bleed). On hold for planned bronchoscopy/biopsy. Cardiac diet. Daily weights. Cook cather placement for strict I&O's. (3) Anemia Is this a current diagnosis for this admission?: Yes Plan: Chronic; baseline Hgb 8.5 Hgb 8.5 on admission; now stable at 9.0 s/p 1 unit PRBC No evidence of bleeding - denies BRB [place] or black stool, no coffee ground emesis Continue to monitor and transfuse for Hgb <8.0 screen printing equipment setter is consulted. MVI and Ferrous sulfate supplementation. (4) Atrial fibrillation with rapid ventricular response Is this a current diagnosis for this admission?: Yes Plan: Possibly secondary to HAP Initially on diltiazem gtt, transitioned to p.o diltiazem. P.o. diltiazem resumed yesterday by Dr. Kaplan. The patient [id number] score is 7, high risk for stroke Started on Eliquis 2.5 mg BID; will need to discuss risks of long-term anticoagulation prior to discharge. On hold for planned bronchoscopy/biopsy. (5) Diabetes mellitus type 2 in obese Is this a current diagnosis for this admission?: Yes Plan: Accu-Cheks AC at bedtime Humalog sliding scale insulin 10 units Lantus nightly Cardiac diabetic diet (6) Acute kidney injury superimposed on chronic kidney disease Is this a current diagnosis for this admission?: Yes Plan: Approaching baseline. Likely stemming from acute CHF Baseline Cr 1.30 Admitted with Cr 1.47-> 1.58-> 1.81-> 1.85-> 1.52-> 1.55 Optimize cardiac function Avoid nephrotoxic medications as able. Trend daily chemistries (7) Fever Qualifiers: Encounter type: initial encounter Is this a current diagnosis for this admission?: Yes Plan: Resolved. Secondary to healthcare associated PNA. Blood cultures negative at 4 days. Covered with broad-spectrum antibiotics: Cefepime and vancomycin. Vancomycin stopped today. (8) Coronary artery disease Qualifiers: Coronary Disease-Associated Artery/Lesion type: unspecified vessel or lesion type Associated angina: without angina Is this a current diagnosis for this admission?: Yes Plan: Continue statin therapy (9) Hypertension Qualifiers: Hypertension type: essential hypertension Qualified Code(s): I10 - Essential (primary) hypertension Is this a current diagnosis for this admission?: Yes Plan: PMH HTN Diltiazem resumed per Dr. Preciado. Continue Coreg Remaining management as above Cardiology is consulted. (10) Hilar mass Is this a current diagnosis for this admission?: Yes Plan: Pulmonology consultation; appreciate Dr. Loco's assistance. Plans for bronchoscopy/biopsy once acute illness is resolved. Patient does have a remote history of tobacco use (1 pack/day x 15 years; stopped approximately 20 years ago). Xarelto held today to allow for washout and potential bronchoscopy early next week. - Time Time Spent with patient: 25-34 minutes Medications reviewed and adjusted accordingly: Yes Anticipated discharge: Home with Homehealth
[2018-10-24] MEDS: CEFEPIME 2 GM/D5W RTU 2 GM/50 ML RTUPB IV SCH (17:33)
[2018-10-24] MEDS: ATORVASTATIN CALCIUM 40 MG TABLET PO SCH (22:17)
[2018-10-24] MEDS: INSULIN GLARGINE,HUM.REC.ANLOG 1,000 UNIT/10 ML VIAL SUBCUT SCH (22:19)
--- NOTE | 2018-10-24 22:58 | Progress Note ---
Provider Note Provider Note: CARDIOLOGY PROGRESS NOTE by Dr. Viviana Kaplan on 10/24/2018. SUBJECTIVE: The patient states that shortness of breath is improved. She still has some mild dyspnea. She does have orthopnea. There is no PND. There is no leg edema. The patient has no anginal symptoms. She has a dry cough which is much infrequent for infrequent now. There is no sputum production. There is no wheezing. The patient continues to be in atrial fibrillation with controlled ventricular response. There is no TIA or CVA symptoms there is no bleeding on Eliquis. PHYSICAL EXAMINATION: The patient is mildly obese. In no acute distress. She is well-groomed. She appears her stated age. Selected Entries 10/24/18 10/24/18 10/24/18 12:00 12:26 16:00 Temperature 96.5 F L 97.8 F Temperature Oral Oral Source Pulse Rate 84 79 Respiratory 14 14 Rate Blood Pressure 104/69 Blood Pressure 109/50 L 98/73 L [Right Upper Arm] Blood Pressure 80 Mean Blood Pressure 69 81 Mean [Right Upper Arm] Blood Pressure Supine Supine Position [Right Upper Arm] Blood Pressure 109 Systolic [Right Upper Arm] O2 Sat by Pulse 99 96 Oximetry Oxygen Delivery Nasal Cannula Nasal Cannula Method ( includes room air) Oxygen Flow 2 Rate HEAD: Is atraumatic normocephalic. EYES: Pupils are equal round regular reactive to light and accommodation. Extraocular movements are normal. There is no conjunctival pallor ENT: Is negative. NECK is supple. There is no JVD. Carotids equal there is no bruit. There is no lymphadenopathy. There is no goiter. There is no accessory muscle respiration use. LUNGS: There is scattered rhonchi present. There is no wheezing today. There is no rales of CHF. HEART: S1-S2 is heard. S1 is of variable intensity. There is no S3 gallop. There is no S4 gallop. There is systolic murmur left sternal border and the apex there is no rub ABDOMEN: Soft nontender there is no paraspinal megaly bowel sounds were noted. EXTREMITIES: Femorals are diminished there is no femoral bruits leg pulses are diminished. There is no pedal edema. There is no DVT or cellulitis. 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 PSYCHIATRIC: Patient judgment and insight are intact her affect is normal. Labs- All tests 24 hr 10/24/18 10/24/18 10/24/18 05:55 05:55 07:40 WBC 9.9 RBC 2.98 L Hgb 9.1 L Hct 26.5 L MCV 89 MCH 30.5 MCHC 34.2 RDW 17.7 H Plt Count 180 Sodium 139.2 Potassium 4.7 Chloride 104 Carbon Dioxide 28 Anion Gap 7 BUN 74 H Creatinine 1.54 H Est GFR ( Amer) 39 L Est GFR (Non-Af Amer) 32 L Glucose 152 H POC Glucose 141 H Calcium 8.1 L Urine Color Urine Appearance Urine pH Ur Specific [place] Urine Protein Urine Glucose (UA) Urine Ketones Urine Blood Urine Nitrite Urine Bilirubin Urine Urobilinogen Ur Leukocyte Esterase Urine WBC (Auto) Urine RBC (Auto) Squamous Epi Cells Auto Urine Mucus (Auto) Urine Ascorbic Acid 10/24/18 10/24/18 10/24/18 11:26 11:55 16:16 WBC RBC Hgb Hct MCV MCH MCHC RDW Plt Count Sodium Potassium Chloride Carbon Dioxide Anion Gap BUN Creatinine Est GFR ( Amer) Est GFR (Non-Af Amer) Glucose POC Glucose 193 H 215 H Calcium Urine Color YELLOW Urine Appearance SLIGHTLY-CLOUDY Urine pH 5.0 Ur Specific [place] 1.008 Urine Protein 30 H Urine Glucose (UA) NEGATIVE Urine Ketones NEGATIVE Urine Blood LARGE H Urine Nitrite NEGATIVE Urine Bilirubin NEGATIVE Urine Urobilinogen NEGATIVE Ur Leukocyte Esterase NEGATIVE Urine WBC (Auto) 5 Urine RBC (Auto) 120 Squamous Epi Cells Auto 1 Urine Mucus (Auto) RARE Urine Ascorbic Acid NEGATIVE 10/24/18 22:11 WBC RBC Hgb Hct MCV MCH MCHC RDW Plt Count Sodium Potassium Chloride Carbon Dioxide Anion Gap BUN Creatinine Est GFR ( Amer) Est GFR (Non-Af Amer) Glucose POC Glucose 300 H Calcium Urine Color Urine Appearance Urine pH Ur Specific [place] Urine Protein Urine Glucose (UA) Urine Ketones Urine Blood Urine Nitrite Urine Bilirubin Urine Urobilinogen Ur Leukocyte Esterase Urine WBC (Auto) Urine RBC (Auto) Squamous Epi Cells Auto Urine Mucus (Auto) Urine Ascorbic Acid Chest X-Ray 10/18/18 22:02 IMPRESSION: Cardiomegaly. Lungs are clear copyright 2011 [employer]- All Rights Reserved Chest CT 10/19/18 15:46 IMPRESSION: Limited airspace disease in the superior segment of the left lower lobe apparently secondary to the presence of a small left hilar mass. Cholelithiasis. Chest X-Ray 10/20/18 00:00 IMPRESSION: Increasing left perihilar infiltrate. Chest X-Ray 10/23/18 06:00 IMPRESSION: Mild left perihilar opacity. Interval improvement. IMPRESSION/RECOMMENDATION: 1. Pneumonia: Continue antibiotics. Patient is improving 2. History of asthma: At present no evidence of acute asthmatic signs on exam. Her asthmatic attack on admission has resolved. 3. Chronic atrial fibrillation: Continue Eliquis. Continue Cardizem. Need to be cautious, since the patient has a prior history of GI bleed. 4. Coronary artery disease: History of stents in the past. No anginal symptoms. 5. Hypertension: Blood pressure well controlled. 6. MODERATE to severe pulmonary hypertension: Continue Cardizem. Consider adding hydralazine. MEDICATIONS reviewed. Management plan discussed with attending physician on the case. Medical decision making I was of moderate complexity. 40 minutes spent on this patient more than 50% time spent in direct patient care. We will follow
[2018-10-25] MEDS: LEVALBUTEROL HCL NEB 1.25 MG/3 ML AMPUL NEB SCH ×4 (02:55→20:08)
[2018-10-25 04:22] LABS: HEMATOCRIT 25.6 % (36.0-47.0); HEMOGLOBIN 8.9 g/dL (12.0-15.5); MEAN CORPUSCULAR HEMOGLOBIN 31.3 pg (27.0-33.4); MEAN CORPUSCULAR HGB CONC 34.7 g/dL (32.0-36.0); MEAN CORPUSCULAR VOLUME 90 fl (80-97); PLATELET COUNT 156 10^3/uL (150-450); RED BLOOD COUNT 2.84 10^6/uL (3.72-5.28); RED CELL DISTRIBUTION WIDTH 17.8 % (11.5-14.0); WHITE BLOOD COUNT 8.3 10^3/uL (4.0-10.5)
[2018-10-25 04:30] LABS: INTERNATIONAL RATION (INR) 1.13; PROTHROMBIN TIME 15.1 SEC (11.4-15.4)
[2018-10-25 04:31] LABS: PARTIAL THROMBOPLASTIN TIME 28.7 SEC (23.5-35.8)
[2018-10-25 04:35] LABS: ANION GAP 5 (5-19); BLOOD UREA NITROGEN 82 mg/dL (7-20); CALCIUM 8.1 mg/dL (8.4-10.2); CARBON DIOXIDE 28 mmol/L (22-30); CHLORIDE 106 mmol/L (98-107); GLUCOSE 199 mg/dL (75-110); POTASSIUM 5.1 mmol/L (3.6-5.0); SODIUM 139.1 mmol/L (137-145)
[2018-10-25] MEDS: METHYLPREDNISOLONE INJ 40 MG/1 ML SDV IV SCH ×3 (05:48→23:13)
[2018-10-25] MEDS: DILTIAZEM HCL 60 MG TABLET PO SCH ×2 (05:48→13:53)
[2018-10-25] MEDS: PHENAZOPYRIDINE HCL 100 MG TABLET PO SCH ×3 (05:48→23:15)
[2018-10-25] MEDS: LEVOTHYROXINE SODIUM 0.025 MG TABLET PO SCH (05:48)
--- NOTE | 2018-10-25 06:29 | RADIOLOGY REPORT (SQ) ---
EXAM DESCRIPTION: XR CHEST 1 VIEW COMPLETED DATE/TME: 10/25/2018 06:00 CLINICAL HISTORY: 78 years Female, pneumonia COMPARISON: 2 days prior. NUMBER OF VIEWS/TECHNIQUE: 1/AP FINDINGS: Pulmonary vascular congestion, increased lung volume, and normal cardiac silhouette. Atherosclerotic vascular disease. No pneumothorax. Stable bony thorax. IMPRESSION: No significant change.
[2018-10-25] MEDS: INSULIN LISPRO 100 UNIT/ML 3 ML VIAL SUBCUT SCH ×4 (08:00→23:11)
[2018-10-25] MEDS: ACETYLCYSTEINE 20% SOLN 800 MG/4 ML VIAL.NEB NEB SCH ×2 (08:44→20:08)
[2018-10-25] MEDS: FERROUS SULFATE 325 MG TABLET PO SCH ×2 (09:52→18:27)
[2018-10-25] MEDS: CARVEDILOL 6.25 MG TABLET PO SCH (09:53)
[2018-10-25] MEDS: FUROSEMIDE 40 MG TABLET PO SCH (09:53)
[2018-10-25] MEDS: FLUCONAZOLE 100 MG TABLET PO SCH (09:53)
[2018-10-25] MEDS: GUAIFENESIN 600 MG TABLET.SA PO SCH ×2 (09:54→23:12)
[2018-10-25] MEDS: PANTOPRAZOLE SODIUM 40 MG TABLET.DR PO SCH (09:54)
[2018-10-25] MEDS: GABAPENTIN 400 MG CAPSULE PO SCH ×2 (09:54→23:12)
[2018-10-25] MEDS: FENOFIBRATE NANOCRYSTALLIZED 145 MG TABLET PO SCH (09:55)
[2018-10-25] MEDS: MULTIVITAMIN TABLET PO SCH (09:55)
[2018-10-25] MEDS ORDERED: FUROSEMIDE 20 MG TABLET PO ONE (16:12)
--- NOTE | 2018-10-25 16:27 | PDOC PROGRESS REPORT ---
Subjective Progress Note for:: 10/25/18 Subjective:: PREETI ELIZABETH is a 78 year old female with history of CHF, HTN, HLD, CAD who presented to the emergency room with acute onset of substernal chest pain with associated palpitations as well as dyspnea with recent cough productive of whitish sputum as well as wheezing. She was admitted for HAP, Afibe RVR, and CHF exacerbation. The patient was seen on afternoon rounds; no family members were present. The patient was seen while she was awake, resting comfortably on nasal cannula. She appears more fatigued today and has slight periorbital edema and increased (+1) pedal edema today as compared to yesterday. She reports feeling fatigued and slightly confused by the numerous diagnoses and medication changes. I reviewed her clinical course and wrote down some notes for her for reference. Overall, she does report that she is improved with decreased shortness of breath and decreased cough. However, she has been rhythm aware and felt palpitations intermittently throughout the day today. She denies fever, chills, chest pain, abdominal pain, vomiting, and diarrhea. She had no other questions or concerns. No concerns per nursing; has been weaned off Levophed. Blood pressures are soft but with appropriate MAP. Patient is downgraded to IMCU; remains in ICU for house convenience. Reason For Visit: ATRIAL FIBRILLATION WITH RAPID VENTRICULAR RESPONS Physical Exam Vital Signs: Temp Pulse Resp BP Pulse Ox 97.0 F 75 14 115/77 98 10/25/18 08:00 10/25/18 08:44 10/25/18 08:44 10/25/18 08:00 10/25/18 08:44 Pulse Oximeter Continuous Start: 10/19/18 10:45 Freq: RTQ4 Status: Hold Protocol: Document 10/19/18 12:00 [facility] (Rec: 10/19/18 12:31 [facility] [id number]) Pulse Oximetry Assessment Equipment Usage Equipment Standby Continuous SpO2 Machine # 0 Additional RT Notes Other pt is on nurse monitor and suraj vallejo is aware and ok with pt being on this monitor. Intake & Output 10/24/18 10/25/18 10/26/18 06:59 06:59 06:59 Intake Total 982 133 Output Total 1305 1605 Balance -323 -1472 Weight 77 kg 76.4 kg General appearance: PRESENT: no acute distress, hard of hearing, obese, well- developed, well-nourished Head exam: PRESENT: atraumatic, normocephalic Eye exam: PRESENT: conjunctiva pink, EOMI, periorbital swelling - Trace, PERRLA. ABSENT: scleral icterus Mouth exam: PRESENT: moist, tongue midline Neck exam: ABSENT: carotid bruit, JVD, lymphadenopathy, thyromegaly Respiratory exam: PRESENT: crackles - Bibasilar, decreased breath sounds, symmetrical, unlabored, other - Supplemental oxygen by nasal cannula. ABSENT: rales, rhonchi, wheezes Cardiovascular exam: PRESENT: irregular rhythm, +S1, +S2. ABSENT: diastolic murmur, rubs, systolic murmur Pulses: PRESENT: normal dorsalis pedis pul Vascular exam: PRESENT: normal capillary refill GI/Abdominal exam: PRESENT: normal bowel sounds, soft. ABSENT: distended, guarding, mass, organolmegaly, rebound, tenderness Rectal exam: PRESENT: deferred Gentrourinary exam: PRESENT: indwelling catheter Extremities exam: PRESENT: full ROM, +1 edema - BLE. ABSENT: calf tenderness, clubbing, pedal edema Neurological exam: PRESENT: alert, awake, oriented to person, oriented to place, oriented to time, oriented to situation, CN II-XII grossly intact, other - Fatigued. ABSENT: motor sensory deficit Psychiatric exam: PRESENT: appropriate affect, normal mood. ABSENT: homicidal ideation, suicidal ideation Skin exam: PRESENT: dry, intact, warm. ABSENT: cyanosis, rash Results Laboratory Results: 10/25/18 04:00 10/25/18 04:00 10/24/18 10/25/18 10/25/18 11:55 04:00 04:00 WBC 8.3 RBC 2.84 L Hgb 8.9 L Hct 25.6 L MCV 90 MCH 31.3 MCHC 34.7 RDW 17.8 H Plt Count 156 Sodium 139.1 Potassium 5.1 H Chloride 106 Carbon Dioxide 28 Anion Gap 5 BUN 82 H Creatinine 1.64 H Est GFR ( Amer) 36 L Est GFR (Non-Af Amer) 30 L Glucose 199 H Calcium 8.1 L Urine Color YELLOW Urine Appearance SLIGHTLY-CLOUDY Urine pH 5.0 Ur Specific [place] 1.008 Urine Protein 30 H Urine Glucose (UA) NEGATIVE Urine Ketones NEGATIVE Urine Blood LARGE H Urine Nitrite NEGATIVE Ur Leukocyte Esterase NEGATIVE Urine WBC (Auto) 5 Urine RBC (Auto) 120 10/19/18 16:50 Blood Blood Culture - Final NO GROWTH IN 5 DAYS 10/19/18 15:47 Blood Blood Culture - Final NO GROWTH IN 5 DAYS 10/18/18 10/19/18 10/19/18 22:01 04:02 04:02 Creatine Kinase < 20 L CK-MB (CK-2) 0.33 Troponin I 0.050 0.067 NT-Pro-B Natriuret Pep 6020 H 10/19/18 10/19/18 10/19/18 09:30 09:30 15:47 Creatine Kinase < 20 L 50 CK-MB (CK-2) 0.68 Troponin I 0.070 NT-Pro-B Natriuret Pep 10/19/18 10/20/18 10/22/18 15:47 12:40 03:33 Creatine Kinase CK-MB (CK-2) 0.26 Troponin I 0.093 0.085 NT-Pro-B Natriuret Pep 5730 H 4690 H Impressions: Chest CT 10/19/18 15:46 IMPRESSION: Limited airspace disease in the superior segment of the left lower lobe apparently secondary to the presence of a small left hilar mass. Cholelithiasis. Chest X-Ray 10/25/18 06:00 IMPRESSION: No significant change. Assessment and Plan - Diagnosis (1) Healthcare-associated pneumonia Is this a current diagnosis for this admission?: Yes Plan: Improved; patient appears more comfortable off BiPAP for short periods of time, continues to require supplemental oxygen (not on home O2 at baseline). Chest x-ray (10/20/2018) demonstrates increased left perihilar infiltrate Repeat CXR (10/23/18) shows mild left perihilar opacity; interval improvement. Leukocytosis has resolved. Now afebrile x 24 hrs. ABG is reassuring; pH 7.37, pO2 83.2, pCO2 45, HCO3 25.7 Blood cultures negative at 4 days Sputum cultures C albicans Will downgrade to telemetry today. She is provided supplemental oxygen and BiPAP as needed to maintain saturations >89% She is provided scheduled and as needed nebulizer treatments. Vancomycin has been discontinued. Continue IV cefepime. Mucinex twice daily. Flutter valve and incentive spirometer when not on BiPAP. Continue IV Solu-Medrol no wheezing today); continue weaning. Pulmonology consultation; appreciate Dr. Loco's assistance. Plans for potential bronchoscopy/biopsy once acute illness is resolved. Will hold Xarelto. (2) Acute on chronic diastolic CHF (congestive heart failure) Is this a current diagnosis for this admission?: Yes Plan: Improved. Slight increase in edema today ProBNP minimally improved 6000-> 5700 Now off levophed Echocardiogram LVEF 65%, severe pulmonary hypertension Cardiology consulted; appreciate Dr. Preciado's assistance. Diltiazem resumed per Dr. Preciado . Transitioned to p.o. furosemide; one-time IV dose today. Continue Coreg. Lisinopril on hold 2/2 continued hypotension. Continue daily aspirin and statin therapy. Started on Eliquis 2.5 mg twice daily for AFIB anticoagulation and BAILEY VASC s core 7. We will need to discuss risks of long-term anticoagulation with patient prior to discharge (history of GI bleed). On hold for planned bronchoscopy/biopsy. Cardiac diet. Daily weights. Cook catheter placement for strict I&O's. (3) Anemia Is this a current diagnosis for this admission?: Yes Plan: Chronic; baseline Hgb 8.5 Hgb 8.5 on admission; now stable at 9.0 s/p 1 unit PRBC No evidence of bleeding - denies BRB [place] or black stool, no coffee ground emesis Continue to monitor and transfuse for Hgb <8.0 director telecommunications is consulted. MVI and Ferrous sulfate supplementation. (4) Atrial fibrillation with rapid ventricular response Is this a current diagnosis for this admission?: Yes Plan: Possibly secondary to HAP; rate controlled on diltiazem. Initially on diltiazem gtt, transitioned to p.o diltiazem. Continue p.o. diltiazem per Dr. Kaplan. The patient [id number] score is 7, high risk for stroke Started on Eliquis 2.5 mg BID; will need to discuss risks of long-term anticoagulation prior to discharge. On hold for planned bronchoscopy/biopsy. (5) Diabetes mellitus type 2 in obese Is this a current diagnosis for this admission?: Yes Plan: Accu-Cheks AC at bedtime Humalog sliding scale insulin 10 units Lantus nightly Cardiac diabetic diet (6) Acute kidney injury superimposed on chronic kidney disease Is this a current diagnosis for this admission?: Yes Plan: Approaching baseline Cr 1.30; currently 1.64. Acute worsening was secondary to acute CHF Optimize cardiac function Avoid nephrotoxic medications as able. Trend daily chemistries (7) Fever Qualifiers: Encounter type: initial encounter Is this a current diagnosis for this admission?: Yes Plan: Resolved. Secondary to healthcare associated PNA. Blood cultures negative at 4 days. Covered with broad-spectrum antibiotics: Cefepime and vancomycin. Vancomycin stopped today. (8) Coronary artery disease Qualifiers: Coronary Disease-Associated Artery/Lesion type: unspecified vessel or lesion type Associated angina: without angina Is this a current diagnosis for this admission?: Yes Plan: Continue statin therapy (9) Hypertension Qualifiers: Hypertension type: essential hypertension Qualified Code(s): I10 - Essential (primary) hypertension Is this a current diagnosis for this admission?: Yes Plan: PMH HTN Diltiazem resumed per Dr. Preciado. Continue Coreg Remaining management as above Cardiology is consulted. (10) Hilar mass Is this a current diagnosis for this admission?: Yes Plan: Pulmonology consultation; appreciate Dr. Loco's assistance. Plans for bronchoscopy/biopsy once acute illness is resolved. Patient does have a remote history of tobacco use (1 pack/day x 15 years; stopped approximately 20 years ago). Xarelto on hold to allow for washout and potential bronchoscopy early next week. - Time Time Spent with patient: 15-24 minutes Medications reviewed and adjusted accordingly: Yes Anticipated discharge: Home with Homehealth
--- NOTE | 2018-10-25 22:17 | Progress Note ---
Provider Note Provider Note: CARDIOLOGY PROGRESS NOTE by Dr. Viviana Kaplan on 10/25/2018. SUBJECTIVE: The patient appears to be more fatigued. She denies shortness of breath. There is no chest pain or discomfort. She does have some degree of orthopnea. There is some trace pedal edema. She continues to be in atrial fibrillation with controlled ventricular response. There is no chest pain or discomfort. There is no bleeding on Eliquis. There is no TIA CVA symptoms. There is no ventricular arrhythmia seen on the monitor. PHYSICAL EXAMINATION: The patient is mildly obese. In no acute distress. She is well-groomed. Selected Entries 10/25/18 16:00 Temperature 97.9 F Temperature Oral Source Pulse Rate 88 Respiratory 18 Rate Blood Pressure 114/82 [Right Upper Arm] Blood Pressure 92 Mean [Right Upper Arm] Blood Pressure Supine Position [Right Upper Arm] Blood Pressure 114 Systolic [Right Upper Arm] O2 Sat by Pulse 98 Oximetry Oxygen Delivery Nasal Cannula Method ( includes room air) Oxygen Flow 2 Rate HEAD: Is atraumatic normocephalic. EYES: Pupils are equal round regular reactive to light and accommodation. Extraocular movements are normal. There is no conjunctival pallor ENT: Is negative. NECK is supple. There is no JVD. Carotids equal there is no bruit. There is no lymphadenopathy. There is no goiter. There is no accessory muscle respiration use. LUNGS: There is scattered rhonchi present. There is no wheezing today. There is no rales of CHF. HEART: S1-S2 is heard. S1 is of variable intensity. There is no S3 gallop. There is no S4 gallop. There is systolic murmur left sternal border and the apex there is no rub ABDOMEN: Soft nontender there is no paraspinal megaly bowel sounds were noted. EXTREMITIES: Femorals are diminished there is no femoral bruits leg pulses are diminished. There is no pedal edema. There is no DVT or cellulitis. SHIFTMAN: The patient is conscious awake alert oriented x3 with no focal deficit. PSYCHIATRIC: Patient judgment and insight are intact her affect is normal. Labs- All tests 24 hr 10/24/18 10/25/18 10/25/18 22:11 04:00 04:00 WBC 8.3 RBC 2.84 L Hgb 8.9 L Hct 25.6 L MCV 90 MCH 31.3 MCHC 34.7 RDW 17.8 H Plt Count 156 PT INR APTT Sodium 139.1 Potassium 5.1 H Chloride 106 Carbon Dioxide 28 Anion Gap 5 BUN 82 H Creatinine 1.64 H Est GFR ( Amer) 36 L Est GFR (Non-Af Amer) 30 L Glucose 199 H POC Glucose 300 H Calcium 8.1 L 10/25/18 10/25/18 10/25/18 04:00 07:54 11:22 WBC RBC Hgb Hct MCV MCH MCHC RDW Plt Count PT 15.1 INR 1.13 APTT 28.7 Sodium Potassium Chloride Carbon Dioxide Anion Gap BUN Creatinine Est GFR ( Amer) Est GFR (Non-Af Amer) Glucose POC Glucose 291 H 310 H Calcium 10/25/18 10/25/18 16:12 21:20 WBC RBC Hgb Hct MCV MCH MCHC RDW Plt Count PT INR APTT Sodium Potassium Chloride Carbon Dioxide Anion Gap BUN Creatinine Est GFR ( Amer) Est GFR (Non-Af Amer) Glucose POC Glucose 262 H 262 H Calcium Chest X-Ray 10/18/18 22:02 IMPRESSION: Cardiomegaly. Lungs are clear copyright 2011 [employer]- All Rights Reserved Chest CT 10/19/18 15:46 IMPRESSION: Limited airspace disease in the superior segment of the left lower lobe apparently secondary to the presence of a small left hilar mass. Cholelithiasis. Chest X-Ray 10/20/18 00:00 IMPRESSION: Increasing left perihilar infiltrate. Chest X-Ray 10/23/18 06:00 IMPRESSION: Mild left perihilar opacity. Interval improvement. Chest X-Ray 10/25/18 06:00 IMPRESSION: The patient is radiology official report is that the patient has heart failure. My interpretation is that the patient does not have a heart failure. IMPRESSION/RECOMMENDATION: 1. Pneumonia: Continue antibiotics. Patient is improving 2. History of asthma: At present no evidence of acute asthmatic signs on exam. Her asthmatic attack on admission has resolved. 3. Chronic atrial fibrillation: Continue Eliquis. Continue Cardizem. There is no bleeding on Eliquis. 4. Coronary artery disease: History of stents in the past. No anginal symptoms. 5. Hypertension: Blood pressure well controlled. 6. MODERATE to severe pulmonary hypertension: Continue Cardizem. Consider adding hydralazine. The patient is off the Levophed drip. MEDICATIONS reviewed. Management plan discussed with attending physician on the case. Medical decision making I was of moderate complexity. 40 minutes spent on this patient more than 50% time spent in direct patient care. We will follow.
[2018-10-25] MEDS ORDERED: LISINOPRIL 10 MG TABLET PO ONE (22:45)
[2018-10-25] MEDS: ATORVASTATIN CALCIUM 40 MG TABLET PO SCH (23:12)
[2018-10-25] MEDS: INSULIN GLARGINE,HUM.REC.ANLOG 1,000 UNIT/10 ML VIAL SUBCUT SCH (23:12)
[2018-10-25] MEDS ORDERED: CEFEPIME 1 GM/D5W RTU 1 GM/50 ML RTUPB IV ONE (23:18)
[2018-10-25] MEDS ORDERED: CEFEPIME 2 GM/D5W RTU 2 GM/50 ML RTUPB IV ONE (23:24)
[2018-10-25] MEDS: CEFEPIME 2 GM/D5W RTU 2 GM/50 ML RTUPB IV SCH (23:25)
[2018-10-26] MEDS: LEVALBUTEROL HCL NEB 1.25 MG/3 ML AMPUL NEB SCH ×4 (02:31→21:53)
[2018-10-26 05:30] LABS: HEMATOCRIT 25.2 % (36.0-47.0); HEMOGLOBIN 8.6 g/dL (12.0-15.5); MEAN CORPUSCULAR HEMOGLOBIN 30.6 pg (27.0-33.4); MEAN CORPUSCULAR HGB CONC 33.9 g/dL (32.0-36.0); MEAN CORPUSCULAR VOLUME 90 fl (80-97); PLATELET COUNT 165 10^3/uL (150-450); RED CELL DISTRIBUTION WIDTH 17.9 % (11.5-14.0)
[2018-10-26 05:34] LABS: PROTHROMBIN TIME 14.8 SEC (11.4-15.4)
[2018-10-26 05:35] LABS: PARTIAL THROMBOPLASTIN TIME 25.9 SEC (23.5-35.8)
[2018-10-26] MEDS: LEVOTHYROXINE SODIUM 0.025 MG TABLET PO SCH (05:37)
[2018-10-26] MEDS: METHYLPREDNISOLONE INJ 40 MG/1 ML SDV IV SCH ×3 (05:37→22:04)
[2018-10-26] MEDS: DILTIAZEM HCL 60 MG TABLET PO SCH ×3 (05:37→22:03)
[2018-10-26] MEDS: PHENAZOPYRIDINE HCL 100 MG TABLET PO SCH (05:40)
[2018-10-26 05:46] LABS: ANION GAP 6 (5-19); BLOOD UREA NITROGEN 86 mg/dL (7-20); CALCIUM 7.9 mg/dL (8.4-10.2); CARBON DIOXIDE 28 mmol/L (22-30); CHLORIDE 105 mmol/L (98-107); GLUCOSE 285 mg/dL (75-110); POTASSIUM 4.7 mmol/L (3.6-5.0); SODIUM 139.2 mmol/L (137-145)
[2018-10-26] MEDS: ACETYLCYSTEINE 20% SOLN 800 MG/4 ML VIAL.NEB NEB SCH ×2 (08:01→21:53)
[2018-10-26] MEDS: INSULIN LISPRO 100 UNIT/ML 3 ML VIAL SUBCUT SCH ×4 (08:37→22:02)
[2018-10-26] MEDS: FENOFIBRATE NANOCRYSTALLIZED 145 MG TABLET PO SCH (09:07)
[2018-10-26] MEDS: GUAIFENESIN 600 MG TABLET.SA PO SCH ×2 (09:07→22:04)
[2018-10-26] MEDS: PANTOPRAZOLE SODIUM 40 MG TABLET.DR PO SCH (09:07)
[2018-10-26] MEDS: FUROSEMIDE 40 MG TABLET PO SCH (09:07)
[2018-10-26] MEDS: FERROUS SULFATE 325 MG TABLET PO SCH ×2 (09:07→17:06)
[2018-10-26] MEDS: MULTIVITAMIN TABLET PO SCH (09:07)
[2018-10-26] MEDS: FLUCONAZOLE 100 MG TABLET PO SCH (09:07)
[2018-10-26] MEDS: GABAPENTIN 400 MG CAPSULE PO SCH ×2 (09:10→22:04)
[2018-10-26] MEDS ORDERED: LISINOPRIL 10 MG TABLET PO SCH (10:00)
--- NOTE | 2018-10-26 17:02 | PDOC PROGRESS REPORT ---
Subjective Progress Note for:: 10/26/18 Subjective:: PREETI ELIZABETH is a 78 year old female with history of CHF, HTN, HLD, CAD who presented to the emergency room with acute onset of substernal chest pain with associated palpitations as well as dyspnea with recent cough productive of whitish sputum as well as wheezing. She was admitted for HAP, Afibe RVR, and CHF exacerbation. The patient was seen on afternoon rounds; no family members were present. The patient was seen while resting comfortably on room air. She reports slight confusion ("overwhelmed by all that's going on") and fatigue. Overall, she does report that she is improved with decreased shortness of breath and decreased cough. She denies fever, chills, chest pain, abdominal pain, vomiting, and diarrhea. She is hopeful to be discharged to home with home health services, and otherwise had no questions or concerns. No concerns per nursing. Patient is downgraded to IMCU; remains in ICU for house convenience. Reason For Visit: ATRIAL FIBRILLATION WITH RAPID VENTRICULAR RESPONS Physical Exam Vital Signs: Temp Pulse Resp BP Pulse Ox 97.1 F 87 11 L 112/64 100 10/26/18 16:00 10/26/18 16:00 10/26/18 16:00 10/26/18 16:00 10/26/18 16:00 Pulse Oximeter Continuous Start: 10/19/18 10:45 Freq: RTQ4 Status: Hold Protocol: Document 10/19/18 12:00 [facility] (Rec: 10/19/18 12:31 [facility] [id number]) Pulse Oximetry Assessment Equipment Usage Equipment Standby Continuous SpO2 Machine # 0 Additional RT Notes Other pt is on nurse monitor and suraj vallejo is aware and ok with pt being on this monitor. Intake & Output 10/25/18 10/26/18 10/27/18 06:59 06:59 06:59 Intake Total 133 290 Output Total 1605 1360 1000 Balance -5055 -0050 -1000 Weight 76.4 kg 75.5 kg General appearance: PRESENT: no acute distress, cooperative, hard of hearing, obese, well-developed, well-nourished Head exam: PRESENT: atraumatic, normocephalic Eye exam: PRESENT: conjunctiva pink, EOMI, PERRLA. ABSENT: scleral icterus Mouth exam: PRESENT: moist, tongue midline Neck exam: ABSENT: carotid bruit, JVD, lymphadenopathy, thyromegaly Respiratory exam: PRESENT: clear to auscultation kaylee, decreased breath sounds - Bibasilar, symmetrical, unlabored. ABSENT: rales, rhonchi, wheezes Cardiovascular exam: PRESENT: irregular rhythm, +S1, +S2. ABSENT: diastolic murmur, rubs, systolic murmur Pulses: PRESENT: normal dorsalis pedis pul Vascular exam: PRESENT: normal capillary refill GI/Abdominal exam: PRESENT: normal bowel sounds, soft. ABSENT: distended, guarding, mass, organolmegaly, rebound, tenderness Rectal exam: PRESENT: deferred Extremities exam: PRESENT: full ROM, pedal edema - Trace bilaterally. ABSENT: calf tenderness, clubbing Neurological exam: PRESENT: alert, awake, oriented to person, oriented to place, oriented to time, oriented to situation, CN II-XII grossly intact, other - Fatigue. ABSENT: motor sensory deficit Psychiatric exam: PRESENT: appropriate affect, normal mood. ABSENT: homicidal ideation, suicidal ideation Skin exam: PRESENT: dry, intact, warm. ABSENT: cyanosis, rash Results Laboratory Results: 10/26/18 05:20 10/26/18 05:20 10/26/18 10/26/18 05:20 05:20 WBC 8.0 RBC 2.80 L Hgb 8.6 L Hct 25.2 L MCV 90 MCH 30.6 MCHC 33.9 RDW 17.9 H Plt Count 165 Sodium 139.2 Potassium 4.7 Chloride 105 Carbon Dioxide 28 Anion Gap 6 BUN 86 H Creatinine 1.79 H Est GFR ( Amer) 33 L Est GFR (Non-Af Amer) 27 L Glucose 285 H Calcium 7.9 L 10/18/18 10/19/18 10/19/18 22:01 04:02 04:02 Creatine Kinase < 20 L CK-MB (CK-2) 0.33 Troponin I 0.050 0.067 NT-Pro-B Natriuret Pep 6020 H 10/19/18 10/19/18 10/19/18 09:30 09:30 15:47 Creatine Kinase < 20 L 50 CK-MB (CK-2) 0.68 Troponin I 0.070 NT-Pro-B Natriuret Pep 10/19/18 10/20/18 10/22/18 15:47 12:40 03:33 Creatine Kinase CK-MB (CK-2) 0.26 Troponin I 0.093 0.085 NT-Pro-B Natriuret Pep 5730 H 4690 H Impressions: Chest CT 10/19/18 15:46 IMPRESSION: Limited airspace disease in the superior segment of the left lower lobe apparently secondary to the presence of a small left hilar mass. Cholelithiasis. Chest X-Ray 10/25/18 06:00 IMPRESSION: No significant change. Assessment and Plan - Diagnosis (1) Healthcare-associated pneumonia Is this a current diagnosis for this admission?: Yes Plan: Improved; patient now maintaining oxygen saturations while on room air. Chest x-ray (10/20/2018) demonstrates increased left perihilar infiltrate Repeat CXR (10/23/18) shows mild left perihilar opacity; interval improvement. Leukocytosis has resolved. Now afebrile x 24 hrs. ABG is reassuring; pH 7.37, pO2 83.2, pCO2 45, HCO3 25.7 Blood cultures negative at 4 days Sputum cultures C albicans Will downgrade to telemetry. She is provided supplemental oxygen as needed to maintain saturations >89% She is provided scheduled and as needed nebulizer treatments. Vancomycin has been discontinued. IV cefepime discontinued today after completion of 7-day course of therapy. Mucinex twice daily. Flutter valve and incentive spirometer to bedside. Continue IV Solu-Medrol no wheezing today); continue weaning. Anticipate readiness for p.o. prednisone tomorrow. Pulmonology consultation; appreciate Dr. Loco's assistance. Plans for potential bronchoscopy/biopsy once acute illness is resolved (late November). (2) Acute on chronic diastolic CHF (congestive heart failure) Is this a current diagnosis for this admission?: Yes Plan: Improved. Weight trending down, good urinary output, and maintaining oxygen saturations on room air. ProBNP minimally improved 6000-> 5700 Now off levophed Echocardiogram LVEF 65%, severe pulmonary hypertension Cardiology consulted; appreciate Dr. Preciado's assistance. Diltiazem resumed per Dr. Preciado . Continue p.o. furosemide Continue Coreg. Continue daily aspirin and statin therapy. Briefly started on Eliquis 2.5 mg twice daily for AFIB anticoagulation and BAILEY VASC score 7. Patient is at high risk for chronic anticoagulation secondary to age, frailty, recent fall resulting in shoulder fracture, and history of GI bleed. Eliquis discontinued. Cardiac diet. Daily weights. Cook catheter placement for strict I&O's. (3) Anemia Is this a current diagnosis for this admission?: Yes Plan: Chronic; baseline Hgb 8.5 Hgb 8.5 on admission; now stable at 9.0 s/p 1 unit PRBC No evidence of bleeding - denies BRBPR or black stool, no coffee ground emesis Continue to monitor and transfuse for Hgb <8.0 highballer is consulted. MVI and Ferrous sulfate supplementation. (4) Atrial fibrillation with rapid ventricular response Is this a current diagnosis for this admission?: Yes Plan: Possibly secondary to HAP; rate controlled on diltiazem. Initially on diltiazem gtt, transitioned to p.o diltiazem. Continue p.o. diltiazem per Dr. Kaplan. Risk for chronic anticoagulation secondary to age, fall risk, history of GI bleed. (5) Diabetes mellitus type 2 in obese Is this a current diagnosis for this admission?: Yes Plan: Accu-Cheks AC at bedtime Humalog sliding scale insulin 10 units Lantus nightly Cardiac diabetic diet (6) Acute kidney injury superimposed on chronic kidney disease Is this a current diagnosis for this admission?: Yes Plan: Baseline Cr 1.30; currently 1.79 Acute worsening was secondary to acute CHF Optimize cardiac function Avoid nephrotoxic medications as able. Trend daily chemistries May benefit from establishing with outpatient inspector cold working. (7) Fever Qualifiers: Encounter type: initial encounter Is this a current diagnosis for this admission?: Yes Plan: Resolved. Secondary to healthcare associated PNA. Blood cultures negative at 5 days. Covered with broad-spectrum antibiotics: Cefepime and vancomycin. (8) Coronary artery disease Qualifiers: Coronary Disease-Associated Artery/Lesion type: unspecified vessel or lesion type Associated angina: without angina Is this a current diagnosis for this admission?: Yes Plan: Continue statin therapy (9) Hypertension Qualifiers: Hypertension type: essential hypertension Qualified Code(s): I10 - Essential (primary) hypertension Is this a current diagnosis for this admission?: Yes Plan: PMH HTN Diltiazem resumed per Dr. Preciado. Continue Coreg Remaining management as above Cardiology is consulted. (10) Hilar mass Is this a current diagnosis for this admission?: Yes Plan: Pulmonology consultation; appreciate Dr. Loco's assistance. Patient does have a remote history of tobacco use (1 pack/day x 15 years; stopped approximately 20 years ago). Discussed with Dr. Loco today. He would like the patient and her surrogate healthcare decision maker (brother Ken Elizabeth) to follow-up in his office late November to discuss the risks and benefits of outpatient bronchoscopy. - Time Time Spent with patient: 15-24 minutes Medications reviewed and adjusted accordingly: Yes Anticipated discharge: Home with Homehealth Within: within 24 hours
[2018-10-26] MEDS: ATORVASTATIN CALCIUM 40 MG TABLET PO SCH (22:04)
[2018-10-26] MEDS: INSULIN GLARGINE,HUM.REC.ANLOG 1,000 UNIT/10 ML VIAL SUBCUT SCH (22:05)
--- NOTE | 2018-10-26 23:42 | Progress Note ---
Provider Note Provider Note: CARDIOLOGY PROGRESS NOTE by Dr. Viviana Kaplan on 10/26/2018. SUBJECTIVE: The patient states she feels stronger than yesterday. She has no shortness of breath. There is orthopnea present but no PND there is no leg edema. The patient continues to be in atrial fibrillation with controlled ventricular response. She has no chest pain or discomfort. There is no bleeding on Eliquis. There is no TIA CVA symptoms. There is no cough or sputum production. Physical EXAMINATION: The patient is mildly obese. She is in no acute distress. Selected Entries 10/26/18 16:00 Temperature 97.1 F Temperature Axillary Source Pulse Rate 87 Respiratory 11 L Rate Blood Pressure 112/64 [Right Upper Arm] Blood Pressure 80 Mean [Right Upper Arm] Blood Pressure Supine Position [Right Upper Arm] O2 Sat by Pulse 98 Oximetry Oxygen Delivery Nasal Cannula Method ( includes room air) HEAD: Is atraumatic normocephalic. EYES: Pupils are equal round regular reactive to light and accommodation. Extraocular movements are normal. There is no conjunctival pallor ENT: Is negative. NECK is supple. There is no JVD. Carotids equal there is no bruit. There is no lymphadenopathy. There is no goiter. There is no accessory muscle respiration use. LUNGS: There is scattered rhonchi present. There is no wheezing today. There is no rales of CHF. HEART: S1-S2 is heard. S1 is of variable intensity. There is no S3 gallop. There is no S4 gallop. There is systolic murmur left sternal border and the apex there is no rub ABDOMEN: Soft nontender there is no paraspinal megaly bowel sounds were noted. EXTREMITIES: Femorals are diminished there is no femoral bruits leg pulses are diminished. There is no pedal edema. There is no DVT or cellulitis. BRIDGE PAINTER HELPER: The patient is conscious awake alert oriented x3 with no focal deficit. PSYCHIATRIC: Patient judgment and insight are intact her affect is normal. Labs- All tests 24 hr 10/26/18 10/26/18 10/26/18 05:20 05:20 05:20 WBC 8.0 RBC 2.80 L Hgb 8.6 L Hct 25.2 L MCV 90 MCH 30.6 MCHC 33.9 RDW 17.9 H Plt Count 165 PT 14.8 INR 1.10 APTT 25.9 Sodium 139.2 Potassium 4.7 Chloride 105 Carbon Dioxide 28 Anion Gap 6 BUN 86 H Creatinine 1.79 H Est GFR ( Amer) 33 L Est GFR (Non-Af Amer) 27 L Glucose 285 H POC Glucose Calcium 7.9 L 10/26/18 10/26/18 10/26/18 08:34 10:58 16:38 WBC RBC Hgb Hct MCV MCH MCHC RDW Plt Count PT INR APTT Sodium Potassium Chloride Carbon Dioxide Anion Gap BUN Creatinine Est GFR ( Amer) Est GFR (Non-Af Amer) Glucose POC Glucose 251 H 315 H 287 H Calcium 10/26/18 21:47 WBC RBC Hgb Hct MCV MCH MCHC RDW Plt Count PT INR APTT Sodium Potassium Chloride Carbon Dioxide Anion Gap BUN Creatinine Est GFR ( Amer) Est GFR (Non-Af Amer) Glucose POC Glucose 313 H Calcium Chest X-Ray 10/18/18 22:02 IMPRESSION: Cardiomegaly. Lungs are clear copyright 2011 [employer]- All Rights Reserved Chest CT 10/19/18 15:46 IMPRESSION: Limited airspace disease in the superior segment of the left lower lobe apparently secondary to the presence of a small left hilar mass. Cholelithiasis. Chest X-Ray 10/20/18 00:00 IMPRESSION: Increasing left perihilar infiltrate. Chest X-Ray 10/23/18 06:00 IMPRESSION: Mild left perihilar opacity. Interval improvement. Chest X-Ray 10/25/18 06:00 IMPRESSION: No significant change. IMPRESSION/RECOMMENDATION: 1. Pneumonia: Continue antibiotics. Patient is improving 2. History of asthma: At present no evidence of acute asthmatic signs on exam. Her asthmatic attack on admission has resolved. 3. Chronic atrial fibrillation: Continue Eliquis. Continue Cardizem. There is no bleeding on Eliquis. 4. Coronary artery disease: History of stents in the past. No anginal symptoms. 5. Hypertension: Blood pressure well controlled. 6. MODERATE to severe pulmonary hypertension: Continue Cardizem. Consider adding hydralazine. The patient is off the Levophed drip. MEDICATIONS reviewed. Management plan discussed with attending physician on the case. Medical decision making I was of moderate complexity. 40 minutes spent on this patient more than 50% time spent in direct patient care. We will foll ow.
[2018-10-27] MEDS: LEVALBUTEROL HCL NEB 1.25 MG/3 ML AMPUL NEB SCH ×4 (03:05→21:15)
[2018-10-27] MEDS: LEVOTHYROXINE SODIUM 0.025 MG TABLET PO SCH (06:21)
[2018-10-27] MEDS: DILTIAZEM HCL 60 MG TABLET PO SCH ×3 (06:21→23:34)
[2018-10-27] MEDS: METHYLPREDNISOLONE INJ 40 MG/1 ML SDV IV SCH ×3 (06:21→23:34)
[2018-10-27 08:08] LABS: ANION GAP 9 (5-19); BLOOD UREA NITROGEN 89 mg/dL (7-20); CALCIUM 8.1 mg/dL (8.4-10.2); CARBON DIOXIDE 26 mmol/L (22-30); CHLORIDE 105 mmol/L (98-107); GLUCOSE 230 mg/dL (75-110); POTASSIUM 4.5 mmol/L (3.6-5.0); SODIUM 139.9 mmol/L (137-145)
[2018-10-27] MEDS: ACETYLCYSTEINE 20% SOLN 800 MG/4 ML VIAL.NEB NEB SCH ×2 (08:15→21:18)
[2018-10-27] MEDS: INSULIN LISPRO 100 UNIT/ML 3 ML VIAL SUBCUT SCH ×4 (10:12→23:33)
[2018-10-27] MEDS: FUROSEMIDE 40 MG TABLET PO SCH (10:13)
[2018-10-27] MEDS: FERROUS SULFATE 325 MG TABLET PO SCH ×2 (10:13→19:05)
[2018-10-27] MEDS: GUAIFENESIN 600 MG TABLET.SA PO SCH ×2 (10:13→23:35)
[2018-10-27] MEDS: GABAPENTIN 400 MG CAPSULE PO SCH ×2 (10:13→23:35)
[2018-10-27] MEDS: PANTOPRAZOLE SODIUM 40 MG TABLET.DR PO SCH (10:13)
[2018-10-27] MEDS: MULTIVITAMIN TABLET PO SCH (10:14)
[2018-10-27] MEDS: FLUCONAZOLE 100 MG TABLET PO SCH (10:14)
[2018-10-27] MEDS: FENOFIBRATE NANOCRYSTALLIZED 145 MG TABLET PO SCH (10:14)
--- NOTE | 2018-10-27 13:57 | PDOC CONSULTATION ---
Consultation Consult Date: 10/22/18 Attending physician:: RACHEL VALLEJO Consult reason:: pna/lung mass/copd History of Present Illness Admission Date/PCP: 10/19/18 00:35 ADAM ROY MD History of Present Illness: PREETI ELIZABETH is a 78 year old female presented to the emergency room with tightn ess in her chest shortness of breath wheezing with SaO2 of 94% on 5 L oxygen as well as atrial fibrillation with a heart rate of 127 and a temperature greater than 100 she denies hemoptysis and has a cough is productive of whitish phlegm fever as noted above but she denies any chills 6 history of personal smoking but no history of chronic lung disease as a child or adolescent. She has a history of coronary artery disease Past Medical History Cardiac Medical History: Reports: Congestive Heart Failure, Coronary Artery Disease - With 2 stents in the past, Hyperlipidema, Hypertension Pulmonary Medical History: Denies: Tuberculosis Endocrine Medical History: Reports: Diabetes Mellitus Type 2 GI Medical History: Reports: Gastroesophageal Reflux Disease Skin Medical History: Reports: Psoriasis Past Surgical History Past Surgical History: Reports: Cardiac Catheterization, Herniorrhaphy Denies: Pacemaker Social History Information Source: [facility] Records Lives with: Shelter Smoking Status: Former Smoker Passive smoke exposure as: Both Frequency of Alcohol Use: None Hx Recreational Drug Use: No Drugs: None Hx Prescription Drug Abuse: No Do you have pets?: No Have you had any respiratory illnesses as a child?: No Have you been exposed to any sick contacts recently?: No Have you had any recent respiratory illnesses?: No Have you travelled outside of [place] in the past 12 months?: No - Advance Directive Resuscitation Status: Do Not Resuscitate Family History Parental Family History Reviewed: No Children Family History Reviewed: No Sibling(s) Family History Reviewed.: No Medication/Allergy Home Medications: Allopurinol [Zyloprim 100 mg Tablet] 100 mg PO QHS 10/19/18 Amlodipine Besylate [Norvasc 10 mg Tablet] 10 mg PO DAILY 10/19/18 Apremilast [Otezla] 30 mg PO Q12 10/19/18 Ascorbic Acid [Vitamin C 500 mg Tablet] 500 mg PO DAILY 10/19/18 Aspirin [Ecotrin 81 mg EC Tablet] 81 mg PO DAILY 10/19/18 Atorvastatin Calcium [Lipitor 40 mg Tablet] 40 mg PO QHS 10/19/18 Bumetanide [Bumex 2 mg Tablet] 2 mg PO DAILY 10/19/18 Calcium Carbonate/Vitamin D3 [Calcium 600 + Vit D 400 Tablet] 2 tab PO DAILY 10/19/18 Carvedilol [Coreg 6.25 mg Tablet] 6.25 mg PO Q12 10/19/18 Cholecalciferol (Vitamin D3) [Vitamin D3 1000 Unit Tablet] 1,000 unit PO DAILY 10/19/18 Ferrous Sulfate [Feosol 325 mg Tablet] 325 mg PO DAILY 10/19/18 Gabapentin [Neurontin 100 mg Capsule] 200 mg PO Q12 10/19/18 Levothyroxine Sodium [Synthroid 0.025 mg Tablet] 0.025 mg PO Q6AM 10/19/18 Lisinopril [Prinivil] 20 mg PO DAILY 10/19/18 Pantoprazole Sodium [Protonix [address] Tablet] 40 mg PO Q6AM 10/19/18 Prednisone [Deltasone 5 mg Tablet] 5 mg PO BID 10/19/18 Sertraline HCl [Zoloft 50 mg Tablet] 50 mg PO DAILY 10/19/18 Vit A/Vit C/Vit E/Zinc/Copper [Preservision Areds Softgel] 2 cap PO DAILY 10/19/18 Allergies/Adverse Reactions: methotrexate [Methotrexate] Allergy (Verified 02/18/18 09:31) Penicillins Allergy (Verified 02/18/18 09:31) Review of Systems ROS unobtainable: Due to mental status Physical Exam Vital Signs: Temp Pulse Resp BP Pulse Ox 96.8 F L 97 17 121/69 97 10/22/18 08:00 10/22/18 08:30 10/22/18 08:30 10/22/18 08:00 10/22/18 08:30 Pulse Oximeter Continuous Start: 10/19/18 10:45 Freq: RTQ4 Status: Hold Protocol: Document 10/19/18 12:00 [facility] (Rec: 10/19/18 12:31 [facility] [id number]) Pulse Oximetry Assessment Equipment Usage Equipment Standby Continuous SpO2 Machine # 0 Additional RT Notes Other pt is on nurse monitor and suraj vallejo is aware and ok with pt being on this monitor. Intake & Output 10/21/18 10/22/18 10/23/18 06:59 06:59 06:59 Intake Total 1298 410 Output Total 800 2285 100 Balance 498 -1875 -100 Weight 77 kg 77.1 kg General appearance: PRESENT: disheveled, mild distress Head exam: PRESENT: atraumatic, normocephalic Eye exam: PRESENT: conjunctiva pale, EOMI. ABSENT: nystagmus, scleral icterus Mouth exam: PRESENT: dry mucosa, neck supple, tongue midline Teeth exam: PRESENT: poor dentation Neck exam: ABSENT: carotid bruit, full ROM, JVD, lymphadenopathy, meningismus, tenderness, thyromegaly, tracheal deviation, tracheostomy, other Respiratory exam: PRESENT: crackles, decreased breath sounds, prolonged expiratory phas, rhonchi, unlabored, wheezes. ABSENT: retraction, stridor Cardiovascular exam: PRESENT: irregular rhythm Pulses: PRESENT: normal radial pulses - [id number] GI/Abdominal exam: PRESENT: soft. ABSENT: tenderness - [id number] Gentrourinary exam: PRESENT: indwelling catheter Extremities exam: ABSENT: calf tenderness, clubbing, joint swelling Musculoskeletal exam: ABSENT: deformity, dislocation Neurological exam: PRESENT: altered, awake Psychiatric exam: PRESENT: flat affect Skin exam: PRESENT: dry, warm Results Laboratory Results: 10/22/18 03:33 10/22/18 03:33 10/22/18 10/22/18 03:33 03:33 WBC 4.7 RBC 2.99 L Hgb 9.0 L Hct 26.8 L MCV 90 MCH 30.0 MCHC 33.5 RDW 18.1 H Plt Count 158 Seg Neutrophils % Not Reportable Lymphocytes % Not Reportable Monocytes % Not Reportable Eosinophils % Not Reportable Basophils % Not Reportable Absolute Neutrophils Not Reportable Absolute Lymphocytes Not Reportable Absolute Monocytes Not Reportable Absolute Eosinophils Not Reportable Absolute Basophils Not Reportable Sodium 133.9 L Potassium 4.7 Chloride 100 Carbon Dioxide 25 Anion Gap 9 BUN 63 H Creatinine 1.52 H Est GFR ( Amer) 40 L Est GFR (Non-Af Amer) 33 L Glucose 290 H Calcium 8.0 L 10/18/18 10/19/18 10/19/18 22:01 04:02 04:02 Creatine Kinase < 20 L CK-MB (CK-2) 0.33 Troponin I 0.050 0.067 NT-Pro-B Natriuret Pep 6020 H 10/19/18 10/19/18 10/19/18 09:30 09:30 15:47 Creatine Kinase < 20 L 50 CK-MB (CK-2) 0.68 Troponin I 0.070 NT-Pro-B Natriuret Pep 10/19/18 10/20/18 10/22/18 15:47 12:40 03:33 Creatine Kinase CK-MB (CK-2) 0.26 Troponin I 0.093 0.085 NT-Pro-B Natriuret Pep 5730 H 4690 H Impressions: Chest CT 10/19/18 15:46 IMPRESSION: Limited airspace disease in the superior segment of the left lower lobe apparently secondary to the presence of a small left hilar mass. Cholelithiasis. Chest X-Ray 10/20/18 00:00 IMPRESSION: Increasing left perihilar infiltrate. Assessment & Plan - Diagnosis (1) Atrial fibrillation with rapid ventricular response Is this a current diagnosis for this admission?: Yes Plan: Tachycardia from fever sepsis (2) CHF (congestive heart failure) Qualifiers: Heart failure type: unspecified Heart failure chronicity: acute on chronic Qualified Code(s): I50.9 - Heart failure, unspecified Is this a current diagnosis for this admission?: Yes Plan: Gentle diuresis (3) Hypertension Qualifiers: Hypertension type: essential hypertension Qualified Code(s): I10 - Essentia l (primary) hypertension Is this a current diagnosis for this admission?: Yes Plan: Stable (4) Hilar mass Is this a current diagnosis for this admission?: Yes Plan: May need bronchoscopy but would rather follow as outpatient and confirmed with family and patient that biopsy and subsequent follow-up are path which to pursue - Time Total Critical Time (Minutes): 55
--- NOTE | 2018-10-27 14:00 | PDOC PROGRESS REPORT ---
Subjective Progress Note for:: 10/23/18 Subjective:: Confused but stable Reason For Visit: ATRIAL FIBRILLATION WITH RAPID VENTRICULAR RESPONS Physical Exam Vital Signs: Temp Pulse Resp BP Pulse Ox 96.1 F L 74 17 124/79 96 10/23/18 08:00 10/23/18 08:20 10/23/18 08:20 10/23/18 08:08 10/23/18 08:20 Pulse Oximeter Continuous Start: 10/19/18 10:45 Freq: RTQ4 Status: Hold Protocol: Document 10/19/18 12:00 JDR (Rec: 10/19/18 12:31 JDR [id number]) Pulse Oximetry Assessment Equipment Usage Equipment Standby Continuous SpO2 Machine # 0 Additional RT Notes Other pt is on nurse monitor and bow maker machine tender yoni is aware and ok with pt being on this monitor. Intake & Output 10/22/18 10/23/18 10/24/18 06:59 06:59 06:59 Intake Total 710 208 Output Total 2285 1645 230 Balance -1575 -1437 -230 Weight 77.1 kg 76.3 kg General appearance: PRESENT: no acute distress, cooperative, disheveled, thin Head exam: PRESENT: atraumatic, normocephalic Eye exam: PRESENT: conjunctiva pale, EOMI. ABSENT: nystagmus, periorbital swelling, scleral icterus Mouth exam: PRESENT: dry mucosa, neck supple, tongue midline - 11494 Neck exam: ABSENT: carotid bruit, full ROM - 16794, JVD, lymphadenopathy, me ningismus, tenderness, thyromegaly, tracheal deviation, tracheostomy, other Respiratory exam: PRESENT: decreased breath sounds, prolonged expiratory phas, rales, rhonchi, unlabored, wheezes Cardiovascular exam: PRESENT: irregular rhythm - 17731 Pulses: PRESENT: normal radial pulses - 93811 GI/Abdominal exam: PRESENT: soft. ABSENT: tenderness Gentrourinary exam: PRESENT: indwelling catheter Extremities exam: PRESENT: pedal edema. ABSENT: calf tenderness, clubbing, joint swelling Musculoskeletal exam: ABSENT: ambulatory, deformity, dislocation Neurological exam: PRESENT: altered, awake Psychiatric exam: PRESENT: flat affect Skin exam: PRESENT: dry, warm Results Laboratory Results: 10/23/18 04:35 10/23/18 04:35 10/23/18 10/23/18 10/23/18 04:35 04:35 04:50 WBC 8.6 RBC 3.06 L Hgb 9.2 L Hct 27.3 L MCV 89 MCH 30.2 MCHC 33.8 RDW 17.7 H Plt Count 171 Seg Neutrophils % Not Reportable Lymphocytes % Not Reportable Monocytes % Not Reportable Eosinophils % Not Reportable Basophils % Not Reportable Absolute Neutrophils Not Reportable Absolute Lymphocytes Not Reportable Absolute Monocytes Not Reportable Absolute Eosinophils Not Reportable Absolute Basophils Not Reportable Carbonic Acid 1.33 HCO3/H2CO3 Ratio 18:1 ABG pH 7.37 ABG pCO2 44.3 ABG pO2 125.2 H ABG HCO3 25.1 H ABG O2 Saturation 98.4 H ABG Base Excess -0.3 FiO2 30% Sodium 136.9 L Potassium 4.6 Chloride 102 Carbon Dioxide 27 Anion Gap 8 BUN 68 H Creatinine 1.55 H Est GFR ( Amer) 39 L Est GFR (Non-Af Amer) 32 L Glucose 199 H Calcium 8.2 L Magnesium 2.0 Total Bilirubin 0.4 AST 23 ALT 32 Alkaline Phosphatase 76 Total Protein 5.5 L Albumin 2.7 L 10/18/18 10/19/18 10/19/18 22:01 04:02 04:02 Creatine Kinase < 20 L CK-MB (CK-2) 0.33 Troponin I 0.050 0.067 NT-Pro-B Natriuret Pep 6020 H 10/19/18 10/19/18 10/19/18 09:30 09:30 15:47 Creatine Kinase < 20 L 50 CK-MB (CK-2) 0.68 Troponin I 0.070 NT-Pro-B Natriuret Pep 10/19/18 10/20/18 10/22/18 15:47 12:40 03:33 Creatine Kinase CK-MB (CK-2) 0.26 Troponin I 0.093 0.085 NT-Pro-B Natriuret Pep 5730 H 4690 H Impressions: Chest CT 10/19/18 15:46 IMPRESSION: Limited airspace disease in the superior segment of the left lower lobe apparently secondary to the presence of a small left hilar mass. Cholelithiasis. Chest X-Ray 10/23/18 06:00 IMPRESSION: Mild left perihilar opacity. Interval improvement. Assessment & Plan - Diagnosis (1) Atrial fibrillation with rapid ventricular response Is this a current diagnosis for this admission?: Yes Plan: Tachycardia from fever sepsis (2) CHF (congestive heart failure) Qualifiers: Heart failure type: unspecified Heart failure chronicity: acute on chronic Qualified Code(s): I50.9 - Heart failure, unspecified Is this a current diagnosis for this admission?: Yes Plan: Gentle diuresis (3) Hilar mass Is this a current diagnosis for this admission?: Yes Plan: May need bronchoscopy but would rather follow as outpatient and confirmed with family and patient that biopsy and subsequent follow-up are path which to pursue - Time Total Critical Time (Minutes): 40
[2018-10-27] MEDS: ATORVASTATIN CALCIUM 40 MG TABLET PO SCH (23:35)
[2018-10-27] MEDS: INSULIN GLARGINE,HUM.REC.ANLOG 1,000 UNIT/10 ML VIAL SUBCUT SCH (23:35)
[2018-10-28] MEDS: LEVALBUTEROL HCL NEB 1.25 MG/3 ML AMPUL NEB SCH ×4 (02:48→22:21)
[2018-10-28] MEDS: METHYLPREDNISOLONE INJ 40 MG/1 ML SDV IV SCH (05:52)
[2018-10-28] MEDS: DILTIAZEM HCL 60 MG TABLET PO SCH ×3 (05:53→22:59)
[2018-10-28] MEDS: LEVOTHYROXINE SODIUM 0.025 MG TABLET PO SCH (05:53)
[2018-10-28] MEDS: ACETYLCYSTEINE 20% SOLN 800 MG/4 ML VIAL.NEB NEB SCH ×2 (08:23→20:52)
[2018-10-28] MEDS: PANTOPRAZOLE SODIUM 40 MG TABLET.DR PO SCH (09:48)
[2018-10-28] MEDS: FUROSEMIDE 40 MG TABLET PO SCH (09:48)
[2018-10-28] MEDS: MULTIVITAMIN TABLET PO SCH (09:48)
[2018-10-28] MEDS: FERROUS SULFATE 325 MG TABLET PO SCH ×2 (09:49→17:29)
[2018-10-28] MEDS: GABAPENTIN 400 MG CAPSULE PO SCH ×2 (09:49→22:59)
[2018-10-28] MEDS: GUAIFENESIN 600 MG TABLET.SA PO SCH ×2 (09:49→22:59)
[2018-10-28] MEDS: INSULIN LISPRO 100 UNIT/ML 3 ML VIAL SUBCUT SCH ×4 (11:01→22:59)
[2018-10-28] MEDS: FENOFIBRATE NANOCRYSTALLIZED 145 MG TABLET PO SCH (11:03)
[2018-10-28] MEDS: PREDNISONE 20 MG TABLET PO SCH (15:58)
[2018-10-28] MEDS: ATORVASTATIN CALCIUM 40 MG TABLET PO SCH (22:59)
[2018-10-28] MEDS: INSULIN GLARGINE,HUM.REC.ANLOG 1,000 UNIT/10 ML VIAL SUBCUT SCH (23:00)
[2018-10-29] MEDS: LEVALBUTEROL HCL NEB 1.25 MG/3 ML AMPUL NEB SCH ×4 (02:25→21:41)
[2018-10-29] MEDS: DILTIAZEM HCL 60 MG TABLET PO SCH ×3 (06:43→22:34)
[2018-10-29] MEDS: LEVOTHYROXINE SODIUM 0.025 MG TABLET PO SCH (06:43)
--- NOTE | 2018-10-29 06:49 | PDOC PROGRESS REPORT ---
Subjective Progress Note for:: 10/27/18 Subjective:: Resting in bed. Appears quite anxious. Very flustered about the plan for discharge. Reason For Visit: ATRIAL FIBRILLATION WITH RAPID VENTRICULAR RESPONS Physical Exam Vital Signs: Temp Pulse Resp BP Pulse Ox 97.6 F 90 20 120/63 94 10/27/18 20:00 10/27/18 21:15 10/27/18 21:15 10/27/18 20:00 10/27/18 21:15 Pulse Oximeter Continuous Start: 10/19/18 10:45 Freq: RTQ4 Status: Hold Protocol: Document 10/19/18 12:00 JDR (Rec: 10/19/18 12:31 JDR [id number]) Pulse Oximetry Assessment Equipment Usage Equipment Standby Continuous SpO2 Machine # 0 Additional RT Notes Other pt is on nurse monitor and inpatient services director yoni is aware and ok with pt being on this monitor. Intake & Output 10/26/18 10/27/18 10/28/18 06:59 06:59 06:59 Intake Total 290 240 600 Output Total 1360 1100 Balance -1070 -860 600 Weight 75.5 kg 56.3 kg General appearance: PRESENT: cooperative, mild distress, well-developed Head exam: PRESENT: atraumatic, normocephalic Eye exam: PRESENT: conjunctiva pale. ABSENT: scleral icterus Mouth exam: PRESENT: moist, tongue midline Respiratory exam: PRESENT: symmetrical. ABSENT: accessory muscle use, clear to auscultation kaylee - Coarse breath sounds bilaterally, rales, wheezes Cardiovascular exam: PRESENT: RRR, +S1, +S2 GI/Abdominal exam: PRESENT: normal bowel sounds, soft. ABSENT: distended, tenderness Rectal exam: PRESENT: deferred Extremities exam: ABSENT: pedal edema Neurological exam: PRESENT: alert, awake, oriented to person, oriented to place, oriented to time, oriented to situation Psychiatric exam: PRESENT: anxious. ABSENT: agitated Focused psych exam: ABSENT: delusional, restlessness Results Laboratory Results: 10/26/18 05:20 10/27/18 06:25 10/27/18 06:25 Sodium 139.9 Potassium 4.5 Chloride 105 Carbon Dioxide 26 Anion Gap 9 BUN 89 H Creatinine 1.79 H Est GFR ( Amer) 33 L Est GFR (Non-Af Amer) 27 L Glucose 230 H Calcium 8.1 L 10/18/18 10/19/18 10/19/18 22:01 04:02 04:02 Creatine Kinase < 20 L CK-MB (CK-2) 0.33 Troponin I 0.050 0.067 NT-Pro-B Natriuret Pep 6020 H 10/19/18 10/19/18 10/19/18 09:30 09:30 15:47 Creatine Kinase < 20 L 50 CK-MB (CK-2) 0.68 Troponin I 0.070 NT-Pro-B Natriuret Pep 10/19/18 10/20/18 10/22/18 15:47 12:40 03:33 Creatine Kinase CK-MB (CK-2) 0.26 Troponin I 0.093 0.085 NT-Pro-B Natriuret Pep 5730 H 4690 H Impressions: Chest CT 10/19/18 15:46 IMPRESSION: Limited airspace disease in the superior segment of the left lower lobe apparently secondary to the presence of a small left hilar mass. Cholelithiasis. Chest X-Ray 10/25/18 06:00 IMPRESSION: No significant change. Assessment and Plan - Diagnosis (1) Healthcare-associated pneumonia Is this a current diagnosis for this admission?: Yes Plan: Completed course of antibiotic therapy. Remains afebrile. Pneumonia resolved. (2) Acute on chronic diastolic CHF (congestive heart failure) Is this a current diagnosis for this admission?: Yes Plan: Continues to maintain a negative fluid balance. Continue current medication regimen (3) Diabetes mellitus type 2 in obese Is this a current diagnosis for this admission?: Yes Plan: Lantus dose is increased. Continue sliding scale coverage. (4) Acute kidney injury superimposed on chronic kidney disease Is this a current diagnosis for this admission?: Yes Plan: Appears to be back to baseline. Acute worsening of renal failure was secondary to heart failure. Continue to optimize medication regimen. (5) Anemia Qualifiers: Anemia type: due to chronic kidney disease Chronic kidney disease stage: stage 3 (moderate) Qualified Code(s): N18.3 - Chronic kidney disease, stage 3 (moderate); D63.1 - Anemia in chronic kidney disease Is this a current diagnosis for this admission?: Yes Plan: Hemoglobin baseline is typically between 8.0 and 9.0. Currently at baseline. Consider transfusion if hemoglobin less than 8 (6) Fever Qualifiers: Encounter type: initial encounter Is this a current diagnosis for this admission?: Yes Plan: Resolved (7) Atrial fibrillation with rapid ventricular response Is this a current diagnosis for this admission?: Yes Plan: Good rate control on current regimen. Continue anticoagulation. (8) Hilar mass Is this a current diagnosis for this admission?: Yes Plan: Noted to be present. Per Dr. Loco's note will address as outpatient. Further diagnostics may not wish to be pursued by patient and family. (9) Coronary artery disease Qualifiers: Coronary Disease-Associated Artery/Lesion type: unspecified vessel or lesion type Associated angina: without angina Is this a current diagnosis for this admission?: Yes Plan: History of coronary disease. Continue to optimize medication regimen. (10) Hypertension Qualifiers: Hypertension type: essential hypertension Qualified Code(s): I10 - Essential (primary) hypertension Is this a current diagnosis for this admission?: Yes Plan: Currently with good blood pressure control. Continue current medication regimen. - Time Time Spent with patient: 25-34 minutes Medications reviewed and adjusted accordingly: Yes Anticipated discharge: Home - Plan Summary Plan Summary: Despite the patient admitting that she wants to go home. At the same time she requests consideration of prison facility placement. She has arranged for someone to live with her to help her with her needs. I explained that with the presence of someone [id number] and an aggressive home health regimen that we will institute she should feel comfortable going home. She is quite indecisive. She does bring up the fact that her house is being cleaned this week and cannot go back to her home until it is cleaned. I asked her to think about it tonight and we will discuss further in the morning.
--- NOTE | 2018-10-29 06:58 | PDOC PROGRESS REPORT ---
Subjective Progress Note for:: 10/28/18 Subjective:: The patient appears comfortable this morning. She is sitting in a chair with her legs elevated. Reason For Visit: ATRIAL FIBRILLATION WITH RAPID VENTRICULAR RESPONS Physical Exam Vital Signs: Temp Pulse Resp BP Pulse Ox 97.7 F 110 H 16 148/94 H 93 10/28/18 11:43 10/28/18 14:09 10/28/18 14:09 10/28/18 11:43 10/28/18 14:09 Pulse Oximeter Continuous Start: 10/19/18 10:45 Freq: RTQ4 Status: Hold Protocol: Document 10/19/18 12:00 JDR (Rec: 10/19/18 12:31 JDR [id number]) Pulse Oximetry Assessment Equipment Usage Equipment Standby Continuous SpO2 Machine # 0 Additional RT Notes Other pt is on nurse monitor and crystal flat grinder yoni is aware and ok with pt being on this monitor. Intake & Output 10/27/18 10/28/18 10/29/18 06:59 06:59 06:59 Intake Total 240 920 Output Total 1100 Balance -860 920 Weight 56.3 kg 58.3 kg General appearance: PRESENT: no acute distress, cooperative, well-developed Head exam: PRESENT: atraumatic, normocephalic Eye exam: PRESENT: conjunctiva pale Mouth exam: PRESENT: moist, tongue midline Respiratory exam: PRESENT: symmetrical, unlabored. ABSENT: accessory muscle use, clear to auscultation kaylee - Still with occasional congested breath sounds, rales, rhonchi, wheezes Cardiovascular exam: PRESENT: RRR, +S1, +S2 GI/Abdominal exam: PRESENT: normal bowel sounds, soft. ABSENT: distended, tenderness Rectal exam: PRESENT: deferred Gentrourinary exam: ABSENT: indwelling catheter Extremities exam: ABSENT: pedal edema Neurological exam: PRESENT: alert, awake, oriented to person, oriented to place, oriented to time, oriented to situation, CN II-XII grossly intact Psychiatric exam: PRESENT: appropriate affect, normal mood. ABSENT: agitated, anxious Results Laboratory Results: 10/26/18 05:20 10/27/18 06:25 10/18/18 10/19/18 10/19/18 22:01 04:02 04:02 Creatine Kinase < 20 L CK-MB (CK-2) 0.33 Troponin I 0.050 0.067 NT-Pro-B Natriuret Pep 6020 H 10/19/18 10/19/18 10/19/18 09:30 09:30 15:47 Creatine Kinase < 20 L 50 CK-MB (CK-2) 0.68 Troponin I 0.070 NT-Pro-B Natriuret Pep 10/19/18 10/20/18 10/22/18 15:47 12:40 03:33 Creatine Kinase CK-MB (CK-2) 0.26 Troponin I 0.093 0.085 NT-Pro-B Natriuret Pep 5730 H 4690 H Impressions: Chest CT 10/19/18 15:46 IMPRESSION: Limited airspace disease in the superior segment of the left lower lobe apparently secondary to the presence of a small left hilar mass. Cholelithiasis. Chest X-Ray 10/25/18 06:00 IMPRESSION: No significant change. Assessment and Plan - Diagnosis (1) Healthcare-associated pneumonia Is this a current diagnosis for this admission?: Yes Plan: Completed course of antibiotic therapy. Remains afebrile. Pneumonia resolved. Now on oral prednisone. We will taper to off. (2) Acute kidney injury superimposed on chronic kidney disease Is this a current diagnosis for this admission?: Yes Plan: Appears to be back to baseline. Acute worsening of renal failure was secondary to heart failure. Continue to optimize medication regimen. (3) Acute on chronic diastolic CHF (congestive heart failure) Is this a current diagnosis for this admission?: Yes Plan: Continues to maintain a negative fluid balance. Continue current medication regimen (4) Anemia Qualifiers: Anemia type: due to chronic kidney disease Chronic kidney disease stage: stage 3 (moderate) Qualified Code(s): N18.3 - Chronic kidney disease, stage 3 (moderate); D63.1 - Anemia in chronic kidney disease Is this a current diagnosis for this admission?: Yes Plan: Hemoglobin baseline is typically between 8.0 and 9.0. Currently at baseline. Consider transfusion if hemoglobin less than 8 (5) Atrial fibrillation with rapid ventricular response Is this a current diagnosis for this admission?: Yes Plan: Good rate control on current regimen. Continue anticoagulation. (6) Fever Qualifiers: Encounter type: initial encounter Is this a current diagnosis for this admission?: Yes Plan: Resolved (7) Hilar mass Is this a current diagnosis for this admission?: Yes Plan: Noted to be present. Per Dr. Loco's note will address as outpatient. Further diagnostics may not wish to be pursued by patient and family. (8) Coronary artery disease Qualifiers: Coronary Disease-Associated Artery/Lesion type: unspecified vessel or lesion type Associated angina: without angina Is this a current diagnosis for this admission?: Yes Plan: History of coronary disease. Continue to optimize medication regimen. (9) Diabetes mellitus type 2 in obese Is this a current diagnosis for this admission?: Yes Plan: Lantus dose is increased. Continue sliding scale coverage. Adjust Lantus based on sliding scale requirements. (10) Hypertension Qualifiers: Hypertension type: essential hypertension Qualified Code(s): I10 - Essential (primary) hypertension Is this a current diagnosis for this admission?: Yes Plan: Currently with good blood pressure control. Continue current medication regimen. - Time Time Spent with patient: 15-24 minutes Medications reviewed and adjusted accordingly: Yes - Plan Summary Plan Summary: After long discussion with the patient it appears that her house not only has to be clean but there is my cc and actual health issues. The patient does wish to go home and in fact after her house is cleaned tomorrow the plan is to discharge her to home with [facility] on Friday.
[2018-10-29] MEDS: ACETYLCYSTEINE 20% SOLN 800 MG/4 ML VIAL.NEB NEB SCH ×2 (07:42→21:41)
[2018-10-29] MEDS: FERROUS SULFATE 325 MG TABLET PO SCH ×2 (08:06→17:04)
[2018-10-29] MEDS: INSULIN LISPRO 100 UNIT/ML 3 ML VIAL SUBCUT SCH ×4 (08:06→22:34)
[2018-10-29] MEDS: FUROSEMIDE 40 MG TABLET PO SCH (09:37)
[2018-10-29] MEDS: GABAPENTIN 400 MG CAPSULE PO SCH ×2 (09:37→22:34)
[2018-10-29] MEDS: PREDNISONE 20 MG TABLET PO SCH (09:37)
[2018-10-29] MEDS: GUAIFENESIN 600 MG TABLET.SA PO SCH ×2 (09:37→22:34)
[2018-10-29] MEDS: FENOFIBRATE NANOCRYSTALLIZED 145 MG TABLET PO SCH (09:37)
[2018-10-29] MEDS: PANTOPRAZOLE SODIUM 40 MG TABLET.DR PO SCH (09:37)
[2018-10-29] MEDS: MULTIVITAMIN TABLET PO SCH (09:37)
[2018-10-29] MEDS ORDERED: INSULIN GLARGINE,HUM.REC.ANLOG 1,000 UNIT/10 ML VIAL SUBCUT SCH (22:00)
[2018-10-29] MEDS: ATORVASTATIN CALCIUM 40 MG TABLET PO SCH (22:34)
--- NOTE | 2018-10-29 23:01 | PDOC PROGRESS REPORT ---
Subjective Progress Note for:: 10/29/18 Subjective:: Resting comfortably in bed. Reason For Visit: ATRIAL FIBRILLATION WITH RAPID VENTRICULAR RESPONS Physical Exam Vital Signs: Temp Pulse Resp BP Pulse Ox 98.3 F 89 18 146/61 H 93 10/29/18 07:00 10/29/18 07:43 10/29/18 07:43 10/29/18 07:00 10/29/18 07:43 Pulse Oximeter Continuous Start: 10/19/18 10:45 Freq: RTQ4 Status: Hold Protocol: Document 10/19/18 12:00 JDR (Rec: 10/19/18 12:31 JDR [id number]) Pulse Oximetry Assessment Equipment Usage Equipment Standby Continuous SpO2 Machine # 0 Additional RT Notes Other pt is on nurse monitor and change management coordinator yoni is aware and ok with pt being on this monitor. Intake & Output 10/28/18 10/29/18 10/30/18 06:59 06:59 06:59 Intake Total 920 822 Balance 920 822 Weight 58.3 kg 59.9 kg General appearance: PRESENT: no acute distress, cooperative, well-developed Head exam: PRESENT: atraumatic, normocephalic Mouth exam: PRESENT: moist, tongue midline Respiratory exam: PRESENT: symmetrical, other - Congested cough. ABSENT: rales, wheezes Cardiovascular exam: PRESENT: irregular rhythm GI/Abdominal exam: PRESENT: normal bowel sounds, soft. ABSENT: distended, tenderness Rectal exam: PRESENT: deferred Gentrourinary exam: ABSENT: indwelling catheter Extremities exam: ABSENT: pedal edema Neurological exam: PRESENT: alert, awake, oriented to person, oriented to place, oriented to time, oriented to situation Psychiatric exam: PRESENT: appropriate affect, normal mood. ABSENT: agitated, anxious Results Laboratory Results: 10/26/18 05:20 10/27/18 06:25 10/18/18 10/19/18 10/19/18 22:01 04:02 04:02 Creatine Kinase < 20 L CK-MB (CK-2) 0.33 Troponin I 0.050 0.067 NT-Pro-B Natriuret Pep 6020 H 10/19/18 10/19/18 10/19/18 09:30 09:30 15:47 Creatine Kinase < 20 L 50 CK-MB (CK-2) 0.68 Troponin I 0.070 NT-Pro-B Natriuret Pep 10/19/18 10/20/18 10/22/18 15:47 12:40 03:33 Creatine Kinase CK-MB (CK-2) 0.26 Troponin I 0.093 0.085 NT-Pro-B Natriuret Pep 5730 H 4690 H Impressions: Chest CT 10/19/18 15:46 IMPRESSION: Limited airspace disease in the superior segment of the left lower lobe apparently secondary to the presence of a small left hilar mass. Cholelithiasis. Chest X-Ray 10/25/18 06:00 IMPRESSION: No significant change. Assessment and Plan - Diagnosis (1) Healthcare-associated pneumonia Is this a current diagnosis for this admission?: Yes Plan: Completed course of antibiotic therapy. Remains afebrile. Pneumonia resolved. Now on oral prednisone. The patient reports that she is on a baseline prednisone dose of 5 mg/day hour taper we will target that dose as her baseline. (2) Acute kidney injury superimposed on chronic kidney disease Is this a current diagnosis for this admission?: Yes Plan: Appears to be back to baseline. Acute worsening of renal failure was secondary to heart failure. Continue to optimize medication regimen. Continue to monitor renal function. (3) Acute on chronic diastolic CHF (congestive heart failure) Is this a current diagnosis for this admission?: Yes Plan: Continues to maintain a negative fluid balance. Continue current medication regimen. We will likely discharge on this regimen. (4) Anemia Qualifiers: Anemia type: due to chronic kidney disease Chronic kidney disease stage: stage 3 (moderate) Qualified Code(s): N18.3 - Chronic kidney disease, stage 3 (moderate); D63.1 - Anemia in chronic kidney disease Is this a current diagnosis for this admission?: Yes Plan: Hemoglobin baseline is typically between 8.0 and 9.0. Currently at baseline. Consider a transfusion if her hemoglobin less than 8.0. (5) Atrial fibrillation with rapid ventricular response Is this a current diagnosis for this admission?: Yes Plan: Good rate control on current regimen. The patient had several questions about the atrial fibrillation. I explained to her that hers is chronic. Rate control is the most important thing at this point. It is not likely that she would be a good candidate for ablation therapy and as long as we had good rate control then it is considered a stable condition. She will continue anticoagulation. (6) Fever Qualifiers: Encounter type: initial encounter Is this a current diagnosis for this admission?: Yes Plan: Resolved (7) Hilar mass Is this a current diagnosis for this admission?: Yes Plan: Noted to be present. Per Dr. Loco's note will address as outpatient. Further diagnostics may not wish to be pursued by patient and family. (8) Coronary artery disease Qualifiers: Coronary Disease-Associated Artery/Lesion type: unspecified vessel or lesion type Associated angina: without angina Is this a current diagnosis for this admission?: Yes Plan: History of coronary disease. Continue to optimize medication regimen. (9) Diabetes mellitus type 2 in obese Is this a current diagnosis for this admission?: Yes Plan: Lantus dose is increased. Continue sliding scale coverage. Adjust Lantus based on sliding scale requirements. (10) Hypertension Qualifiers: Hypertension type: essential hypertension Qualified Code(s): I10 - Essential (primary) hypertension Is this a current diagnosis for this admission?: Yes Plan: Currently with good blood pressure control. Continue current medication regimen. - Time Time Spent with patient: 15-24 minutes Medications reviewed and adjusted accordingly: Yes Anticipated discharge: Home Within: within 48 hours
[2018-10-30] MEDS: LEVALBUTEROL HCL NEB 1.25 MG/3 ML AMPUL NEB SCH ×4 (02:49→19:28)
[2018-10-30] MEDS: DILTIAZEM HCL 60 MG TABLET PO SCH ×2 (05:09→22:02)
[2018-10-30] MEDS: LEVOTHYROXINE SODIUM 0.025 MG TABLET PO SCH (05:09)
[2018-10-30] MEDS: FERROUS SULFATE 325 MG TABLET PO SCH ×2 (08:13→17:42)
[2018-10-30] MEDS: INSULIN LISPRO 100 UNIT/ML 3 ML VIAL SUBCUT SCH ×4 (08:13→22:00)
[2018-10-30] MEDS: ACETYLCYSTEINE 20% SOLN 800 MG/4 ML VIAL.NEB NEB SCH ×2 (08:36→19:28)
[2018-10-30] MEDS: FUROSEMIDE 40 MG TABLET PO SCH (09:12)
[2018-10-30] MEDS: PANTOPRAZOLE SODIUM 40 MG TABLET.DR PO SCH (09:12)
[2018-10-30] MEDS: GUAIFENESIN 600 MG TABLET.SA PO SCH ×2 (09:12→22:01)
[2018-10-30] MEDS: GABAPENTIN 400 MG CAPSULE PO SCH ×2 (09:13→22:01)
[2018-10-30] MEDS: MULTIVITAMIN TABLET PO SCH (09:13)
[2018-10-30] MEDS: PREDNISONE 20 MG TABLET PO SCH (09:13)
[2018-10-30] MEDS: FENOFIBRATE NANOCRYSTALLIZED 145 MG TABLET PO SCH (09:13)
[2018-10-30] MEDS ORDERED: DILTIAZEM HCL 60 MG TABLET PO ONE (13:15)
[2018-10-30] MEDS ORDERED: METOPROLOL TARTRATE 50 MG TABLET PO ONE (14:30)
--- NOTE | 2018-10-30 20:06 | PDOC PROGRESS REPORT ---
Subjective Progress Note for:: 10/30/18 Subjective:: The patient was slated for discharge. Unfortunately this morning her heart rate was significantly increased. She was exhibiting atrial fibrillation with rapid ventricular response. This would be an unsafe discharge plan. Reason For Visit: ATRIAL FIBRILLATION WITH RAPID VENTRICULAR RESPONS Physical Exam Vital Signs: Temp Pulse Resp BP Pulse Ox 98.2 F 90 16 141/79 H 94 10/30/18 15:10 10/30/18 19:28 10/30/18 19:28 10/30/18 15:10 10/30/18 19:28 Pulse Oximeter Continuous Start: 10/19/18 10:45 Freq: RTQ4 Status: Complete Protocol: Document 10/19/18 12:00 JDR (Rec: 10/19/18 12:31 JDR [id number]) Pulse Oximetry Assessment Equipment Usage Equipment Standby Continuous SpO2 Machine # 0 Additional RT Notes Other pt is on nurse monitor and suraj vallejo is aware and ok with pt being on this monitor. Intake & Output 10/29/18 10/30/18 10/31/18 06:59 06:59 06:59 Intake Total 822 800 708 Balance 822 800 708 Weight 59.9 kg 75.7 kg General appearance: PRESENT: no acute distress, cooperative, well-developed Head exam: PRESENT: atraumatic, normocephalic Eye exam: PRESENT: conjunctiva pink. ABSENT: periorbital swelling, scleral icterus Ear exam: PRESENT: normal external ear exam Neck exam: ABSENT: carotid bruit, lymphadenopathy, thyromegaly Respiratory exam: PRESENT: symmetrical, other - Congested breath sounds bilaterally. ABSENT: chest wall tenderness, rales, rhonchi, tachypnea, wheezes Cardiovascular exam: PRESENT: irregular rhythm GI/Abdominal exam: PRESENT: normal bowel sounds, soft. ABSENT: distended, tenderness Rectal exam: PRESENT: deferred Gentrourinary exam: ABSENT: indwelling catheter Extremities exam: ABSENT: pedal edema Neurological exam: PRESENT: alert, awake, oriented to person, oriented to place, oriented to time, oriented to situation, CN II-XII grossly intact Psychiatric exam: PRESENT: normal mood. ABSENT: agitated, anxious, unusual affect Focused psych exam: ABSENT: delusional, restlessness Results Laboratory Results: 10/26/18 05:20 10/27/18 06:25 10/18/18 10/19/18 10/19/18 22:01 04:02 04:02 Creatine Kinase < 20 L CK-MB (CK-2) 0.33 Troponin I 0.050 0.067 NT-Pro-B Natriuret Pep 6020 H 10/19/18 10/19/18 10/19/18 09:30 09:30 15:47 Creatine Kinase < 20 L 50 CK-MB (CK-2) 0.68 Troponin I 0.070 NT-Pro-B Natriuret Pep 10/19/18 10/20/18 10/22/18 15:47 12:40 03:33 Creatine Kinase CK-MB (CK-2) 0.26 Troponin I 0.093 0.085 NT-Pro-B Natriuret Pep 5730 H 4690 H Impressions: Chest CT 10/19/18 15:46 IMPRESSION: Limited airspace disease in the superior segment of the left lower lobe apparently secondary to the presence of a small left hilar mass. Cholelithiasis. Chest X-Ray 10/25/18 06:00 IMPRESSION: No significant change. Assessment and Plan - Diagnosis (1) Healthcare-associated pneumonia Is this a current diagnosis for this admission?: Yes Plan: Completed course of antibiotic therapy. Remains afebrile. Pneumonia resolved. Now on oral prednisone. The patient reports that she is on a baseline prednisone dose of 5 mg/day hour taper we will target that dose as her baseline. (2) Acute kidney injury superimposed on chronic kidney disease Is this a current diagnosis for this admission?: Yes Plan: Appears to be back to baseline. Acute worsening of renal failure was secondary to heart failure. Continue to optimize medication regimen. Continue to monitor renal function. (3) Acute on chronic diastolic CHF (congestive heart failure) Is this a current diagnosis for this admission?: Yes Plan: Continues to maintain a negative fluid balance. Continue current medication regimen. We will likely discharge on this regimen. (4) Anemia Qualifiers: Anemia type: due to chronic kidney disease Chronic kidney disease stage: stage 3 (moderate) Qualified Code(s): N18.3 - Chronic kidney disease, stage 3 (moderate); D63.1 - Anemia in chronic kidney disease Is this a current diagnosis for this admission?: Yes Plan: Hemoglobin baseline is typically between 8.0 and 9.0. Currently at baseline. Consider a transfusion if her hemoglobin less than 8.0. (5) Atrial fibrillation with rapid ventricular response Is this a current diagnosis for this admission?: Yes Plan: Significant issues today with her rapid heart rate. I will increase her diltiazem to 240 mg long-acting daily. We will also add metoprolol scheduled dosing. She will remain on her apixaban. If her heart rate remains controlled for tomorrow she will discharged home. (6) Fever Qualifiers: Encounter type: initial encounter Is this a current diagnosis for this admission?: Yes Plan: Resolved (7) Hilar mass Is this a current diagnosis for this admission?: Yes Plan: Noted to be present. Per Dr. Loco's note will address as outpatient. Further diagnostics may not wish to be pursued by patient and family. (8) Coronary artery disease Qualifiers: Coronary Disease-Associated Artery/Lesion type: unspecified vessel or lesion type Associated angina: without angina Is this a current diagnosis for this admission?: Yes Plan: History of coronary disease. Continue to optimize medication regimen. (9) Diabetes mellitus type 2 in obese Is this a current diagnosis for this admission?: Yes Plan: Despite decreasing her prednisone her sugars still remain elevated. I will increase her Lantus once again. (10) Hypertension Qualifiers: Hypertension type: essential hypertension Qualified Code(s): I10 - [place] l (primary) hypertension Is this a current diagnosis for this admission?: Yes Plan: Currently with good blood pressure control. Continue current medication regimen. (11) Chronic obstructive pulmonary disease Qualifiers: COPD type: COPD with acute lower respiratory infection Qualified Code(s): J44.0 - Chronic obstructive pulmonary disease with acute lower respiratory in fection Is this a current diagnosis for this admission?: Yes Plan: The patient will continue her steroid taper. For discharge I will start her on combination inhaler Trelegy Ellipta. This will be 1 inhalation daily. I will also give her a albuterol inhaler for as needed use. - Time Time Spent with patient: 25-34 minutes Medications reviewed and adjusted accordingly: Yes Anticipated discharge: Home Within: within 24 hours - Plan Summary Plan Summary: Scheduled discharge today was aborted due to her atrial fibrillation with rapid ventricular response.
[2018-10-30] MEDS ORDERED: INSULIN GLARGINE,HUM.REC.ANLOG 1,000 UNIT/10 ML VIAL SUBCUT SCH (22:00)
[2018-10-30] MEDS: ATORVASTATIN CALCIUM 40 MG TABLET PO SCH (22:01)
[2018-10-30] MEDS: METOPROLOL TARTRATE 25 MG TABLET PO SCH (22:01)
[2018-10-31] MEDS: LEVALBUTEROL HCL NEB 1.25 MG/3 ML AMPUL NEB SCH ×3 (02:02→14:30)
[2018-10-31] MEDS: LEVOTHYROXINE SODIUM 0.025 MG TABLET PO SCH (05:45)
[2018-10-31] MEDS: ACETYLCYSTEINE 20% SOLN 800 MG/4 ML VIAL.NEB NEB SCH (08:19)
[2018-10-31] MEDS: FERROUS SULFATE 325 MG TABLET PO SCH ×2 (08:39→17:15)
[2018-10-31] MEDS: INSULIN LISPRO 100 UNIT/ML 3 ML VIAL SUBCUT SCH ×3 (08:39→17:15)
[2018-10-31] MEDS ORDERED: DILTIAZEM HCL 240 MG CAPSULE.CR PO SCH (10:00)
[2018-10-31] MEDS: MULTIVITAMIN TABLET PO SCH (10:16)
[2018-10-31] MEDS: FENOFIBRATE NANOCRYSTALLIZED 145 MG TABLET PO SCH (10:16)
[2018-10-31] MEDS: FUROSEMIDE 40 MG TABLET PO SCH (10:16)
[2018-10-31] MEDS: METOPROLOL TARTRATE 25 MG TABLET PO SCH (10:16)
[2018-10-31] MEDS: GABAPENTIN 400 MG CAPSULE PO SCH (10:16)
[2018-10-31] MEDS: PANTOPRAZOLE SODIUM 40 MG TABLET.DR PO SCH (10:16)
[2018-10-31] MEDS: GUAIFENESIN 600 MG TABLET.SA PO SCH (10:16)
[2018-10-31] MEDS: PREDNISONE 20 MG TABLET PO SCH (10:17)
[2018-10-31 15:16] VITALS: BP 110/93
--- NOTE | 2018-11-01 08:26 | PDOC DISCHARGE SUMMARY ---
General - Admit/Disc Date/PCP Admission Date/Primary Care Provider: 10/19/18 00:35 ADAM ROY MD Discharge Date: 10/31/18 - Discharge Diagnosis (1) Healthcare-associated pneumonia Is this a current diagnosis for this admission?: Yes Summary: Antibiotic therapy completed. Pneumonia resolved. (2) Acute kidney injury superimposed on chronic kidney disease Is this a current diagnosis for this admission?: Yes Summary: Patient did receive IV fluids. Medications were monitored and adjusted. The patient's renal function is back to baseline. She does have chronic stage III kidney failure likely from her diabetes and hypertension (3) Acute on chronic diastolic CHF (congestive heart failure) Is this a current diagnosis for this admission?: Yes Summary: Adjustments were made in the patient's medications. This included an increase in her carvedilol. She is currently stable. She will follow-up with cardiology. (4) Anemia Is this a current diagnosis for this admission?: Yes Summary: Patient did receive 1 unit of packed red blood cells. She does have chronic anemia. Continue iron supplement. (5) Atrial fibrillation with rapid ventricular response Is this a current diagnosis for this admission?: Yes Summary: The patient was supposed to discharge yesterday. Unfortunately she had an exacerbation of her atrial fibrillation with rapid ventricular response. Her new medication regimen will be extended release diltiazem 240 mg daily and I have increased her carvedilol to 12.5 mg twice a day. She is on Eliquis for chronic anticoagulation. I will defer to her outpatient providers regarding of this age. (6) Fever Is this a current diagnosis for this admission?: Yes Summary: Resolved (7) Hilar mass Is this a current diagnosis for this admission?: Yes Summary: To be followed up as an outpatient. Further investigation depends on the patient's wishes for additional testing and possible procedures. (8) Coronary artery disease Is this a current diagnosis for this admission?: Yes Summary: Stable at the time of discharge. No acute coronary events during this hospitalization. Medication adjustments noted as above. (9) Diabetes mellitus type 2 in obese Is this a current diagnosis for this admission?: Yes Summary: The patient will discharge on Lantus. She has been on insulin before. Her sugars were still elevated but she is still on steroid therapy. As her steroid dose decreases back to baseline her sugars should also improve. (10) Hypertension Is this a current diagnosis for this admission?: Yes Summary: Multiple adjustments in medications occurred throughout her stay. The current regimen does give her reasonable blood pressure control. (11) Chronic obstructive pulmonary disease Is this a current diagnosis for this admission?: Yes Summary: The patient will be started on long-acting inhaler therapy with Trelegy triple medication inhaler. She will also have an albuterol inhaler for rescue use. This should help with the chronic congested cough as well. - Additional Information Resuscitation Status: Do Not Resuscitate Discharge Diet: Cardiac, Diabetic Discharge Activity: Activity As Tolerated, Balance Activity w/Rest, Energy Conservation, Weigh Daily Prescriptions: Albuterol Sulfate [Albuterol Sulfate Hfa] 2 puff IH Q4HP PRN 30 Days #1 hfa.aer.ad PRN Reason: Shortness Of Breath Apixaban [Eliquis 2.5 mg Tablet] 2.5 mg PO BID 30 Days #60 tablet Carvedilol [Coreg 12.5 mg Tablet] 12.5 mg PO Q12 #60 tablet Diltiazem HCl [Cardizem Cd 240 mg Capsule.cr] 240 mg PO DAILY 30 Days #30 capsule.cr Fluticasone/Umeclidin/Vilanter [Trelegy 100-62.5-25 Mcg Ellipta 14 Dose/Dpi] 1 inh PO DAILY 30 Days #1 inhaler Gabapentin [Neurontin 400 mg Capsule] 400 mg PO Q12 60 Days #60 capsule Insulin Glargine,Hum.rec.anlog [Basaglar Kwikpen U-100] 18 unit SQ QHS 30 Days #2 insuln.pen Pen Needle, Diabetic [Pen Needle] 1 each MC DAILY 30 Days #30 dis.needle Prednisone [Deltasone 5 mg Tablet] 5 mg PO ASDIR 12 Days #60 tablet Home Medications: Allopurinol [Zyloprim 100 mg Tablet] 100 mg PO QHS 10/19/18 Apremilast [Otezla] 30 mg PO Q12 10/19/18 Ascorbic Acid [Vitamin C 500 mg Tablet] 500 mg PO DAILY 10/19/18 Aspirin [Ecotrin 81 mg EC Tablet] 81 mg PO DAILY 10/19/18 Atorvastatin Calcium [Lipitor 40 mg Tablet] 40 mg PO QHS 10/19/18 Bumetanide [Bumex 2 mg Tablet] 2 mg PO DAILY 10/19/18 Calcium Carbonate/Vitamin D3 [Calcium 600 + Vit D 400 Tablet] 2 tab PO DAILY 10/19/18 Cholecalciferol (Vitamin D3) [Vitamin D3 1000 Unit Tablet] 1,000 unit PO DAILY 10/19/18 Ferrous Sulfate [Feosol 325 mg Tablet] 325 mg PO DAILY 10/19/18 Levothyroxine Sodium [Synthroid 0.025 mg Tablet] 0.025 mg PO Q6AM 10/19/18 Lisinopril [Prinivil] 20 mg PO DAILY 10/19/18 Pantoprazole Sodium [Protonix [address] Tablet] 40 mg PO Q6AM 10/19/18 Prednisone [Deltasone 5 mg Tablet] 5 mg PO BID 10/19/18 Sertraline HCl [Zoloft 50 mg Tablet] 50 mg PO DAILY 10/19/18 Vit A/Vit C/Vit E/Zinc/Copper [Preservision Areds Softgel] 2 cap PO DAILY 10/19/18 Albuterol Sulfate [Albuterol Sulfate Hfa] 2 puff IH Q4HP PRN 30 Days #1 hfa.aer.ad 10/30/18 Apixaban [Eliquis 2.5 mg Tablet] 2.5 mg PO BID 30 Days #60 tablet 10/30/18 Apremilast [Otezla] 30 mg PO .BID 10/30/18 Fenofibrate Nanocrystallized [Tricor 145 mg Tablet] 145 mg PO DAILY tablet 10/30/18 Ferrous Sulfate [Feosol 325 mg Tablet] 325 mg PO BIDPCBS tablet 10/30/18 Fluticasone/Umeclidin/Vilanter [Trelegy 100-62.5-25 Mcg Ellipta 14 Dose/Dpi] 1 inh PO DAILY 30 Days #1 inhaler 10/30/18 Gabapentin [Neurontin 400 mg Capsule] 400 mg PO Q12 60 Days #60 capsule 10/30/18 Guaifenesin [Mucinex Sr 600 mg Tablet.sa] 600 mg PO Q12 tablet.sa 10/30/18 Insulin Glargine,Hum.rec.anlog [Basaglar Kwikpen U-100] 18 unit SQ QHS 30 Days #2 insuln.pen 10/30/18 Multivitamin [Tab-A-Deana (Multiple Vitamin) Tablet] 1 tab PO DAILY tablet 10/30/18 Pantoprazole Sodium [Protonix [address] Tablet] 40 mg PO DAILY tablet. 10/30/18 Pen Needle, Diabetic [Pen Needle] 1 each MC DAILY 30 Days #30 dis.needle 10/30/18 Prednisone [Deltasone 5 mg Tablet] 5 mg PO ASDIR 12 Days #60 tablet 10/30/18 Carvedilol [Coreg 12.5 mg Tablet] 12.5 mg PO Q12 #60 tablet 10/31/18 Diltiazem HCl [Cardizem Cd 240 mg Capsule.cr] 240 mg PO DAILY 30 Days #30 capsule.cr 10/31/18 History of Present Illness Patient complains of: Initial presentation to the emergency department was because of substernal chest pain with palpitations and dyspnea. History of Present Illness: The patient is an 78-year-old female with complex past medical history including cardiopulmonary disease (coronary artery disease, coronary stents, congestive heart failure), psoriasis and diabetes. She notes that she developed substernal chest pain and has noted palpitations as well as increasing shortness of breath and lower extremity edema. At the time of evaluation she was found to be in atrial fibrillation with rapid ventricular response. She had a low-grade temp erature with tachypnea requiring 2 L of oxygen to keep her oxygen saturation above 90%. This progressed to requiring BiPAP. Treatment for atrial fibrillation was initiated with diltiazem drip. The patient was referred to the hospital service for admission. Hospital Course Hospital Course: The patient had a complex hospitalization. Her atrial fibrillation required multiple adjustments in medications. She appears to have good rate control with diltiazem 240 mg daily and carvedilol 12.5 mg twice daily. A hilar mass was noted. She did develop a pneumonia. She completed a course of antibiotic therapy and is greatly improved. She will have follow-up with pulmonology for the hilar mass. She may in fact elect not to pursue further investigation at her age. Her acute hypoxic respiratory failure was likely combination of pneumonia and congestive heart failure. She is back to room air. Adjustment in her medications were made for her congestive heart failure. She will discharge on lisinopril, Bumex and carvedilol. She is also on atorvastatin and an aspirin cardiac disease. Because she did receive steroid therapy for COPD her glucoses increase significantly. She will discharge on Lantus. She has used insulin before. Home health has been ordered to monitor her status. Changes in outpatient medications deferred to primary provider. Atrial fibrillation with rapid ventricular response flared on the anticipated discharge date and so the patient had to remain one more day well adjustments were made in her medications. The patient had been away from her home in a [facility] for several months. Evidently her home needed aggressive cleaning including removal of mass feces. Once the appropriate cleaning/sensitization occurred the patient was discharged home. She will discharge to home with [facility]. She did have more approved days for SNIF placement but the patient's primary desire was to be home. Physical Exam Vital Signs: Temp Pulse Resp BP Pulse Ox 98.1 F 116 H 17 133/76 H 96 10/31/18 12:00 10/31/18 12:00 10/31/18 12:00 10/31/18 12:00 10/31/18 12:00 Pulse Oximeter Continuous Start: 10/19/18 10:45 Freq: RTQ4 Status: Complete Protocol: Document 10/19/18 12:00 J (Rec: 10/19/18 12:31 JDR [id number]) Pulse Oximetry Assessment Equipment Usage Equipment Standby Continuous SpO2 Machine # 0 Additional RT Notes Other pt is on nurse monitor and an/syq 13 nav/c2 operator yoni is aware and ok with pt being on this monitor. Intake & Output 10/30/18 10/31/18 11/01/18 06:59 06:59 06:59 Intake Total 800 930 Balance 800 930 Weight 75.7 kg 77.1 kg General appearance: PRESENT: no acute distress, cooperative, well-developed Head exam: PRESENT: atraumatic, normocephalic Eye exam: PRESENT: conjunctiva pale. ABSENT: scleral icterus Neck exam: ABSENT: carotid bruit, JVD, lymphadenopathy Respiratory exam: PRESENT: clear to auscultation kaylee, symmetrical, unlabored, other - Still with a slightly congested cough. ABSENT: chest wall tenderness, rhonchi, wheezes Cardiovascular exam: PRESENT: irregular rhythm GI/Abdominal exam: PRESENT: normal bowel sounds, soft. ABSENT: distended, tenderness Gentrourinary exam: ABSENT: indwelling catheter Extremities exam: PRESENT: pedal edema Neurological exam: PRESENT: alert, awake, oriented to person, oriented to place, oriented to time, oriented to situation, CN II-XII grossly intact Psychiatric exam: PRESENT: appropriate affect - Very happy to be going home. ABSENT: agitated, anxious Focused psych exam: ABSENT: delusional, restlessness Results Laboratory Results: 10/26/18 05:20 10/27/18 06:25 10/18/18 10/19/18 10/19/18 22:01 04:02 04:02 Creatine Kinase < 20 L CK-MB (CK-2) 0.33 Troponin I 0.050 0.067 NT-Pro-B Natriuret Pep 6020 H 10/19/18 10/19/18 10/19/18 09:30 09:30 15:47 Creatine Kinase < 20 L 50 CK-MB (CK-2) 0.68 Troponin I 0.070 NT-Pro-B Natriuret Pep 10/19/18 10/20/18 10/22/18 15:47 12:40 03:33 Creatine Kinase CK-MB (CK-2) 0.26 Troponin I 0.093 0.085 NT-Pro-B Natriuret Pep 5730 H 4690 H Impressions: Chest CT 10/19/18 15:46 IMPRESSION: Limited airspace disease in the superior segment of the left lower lobe apparently secondary to the presence of a small left hilar mass. Cholelithiasis. Chest X-Ray 10/25/18 06:00 IMPRESSION: No significant change. Qualifiers - * PATIENT BEING DISCHARGED WITH ANY OF THE FOLLOWING DIAGNOSIS: Heart Failure HF Pt being discharged on ACEI for LVEF less than 40%?: Yes HF Pt being discharged on ARBS for LVEF less than 40%?: No Reason(s) for not prescribing ARBS:: Not indicated - LVEF 65% HF Pt with Afib discharged with Warfarin?: No Reason(s) for not prescribing Warfarin:: Not indicated - Patient on Eliquis HF Pt discharged on evidence-based Beta [place]:: Yes Plan Time Spent: Greater than 30 Minutes
== END 2018-10-31 18:20 | disposition home health service (06) | DRG 291 ==
LOC: ER 21:48 → EH 10-19 00:35 → 3N 10-19 02:20 → ICU 10-20 16:46 → 4W 10-26 21:13 → 5 10-30 01:15
PROVIDERS: ADMIT Family Medicine; ATTEND Family Medicine
PROC: 5A09557 Assistance with Respiratory Ventilation, Greater than 96 Consecutive Hours, Continuous Positive Airway Pressure (ICD-10-PCS; 2018-10-18)
PROC: 3E0F73Z Introduction of Anti-inflammatory into Respiratory Tract, Via Natural or Artificial Opening (ICD-10-PCS; 2018-10-19)
PROC: 30233N1 Transfusion of Nonautologous Red Blood Cells into Peripheral Vein, Percutaneous Approach (ICD-10-PCS; principal; 2018-10-20)
PROC: 02HV33Z Insertion of Infusion Device into Superior Vena Cava, Percutaneous Approach (ICD-10-PCS; 2018-10-20)
DX: I13.0 Hypertensive heart and chronic kidney disease with heart failure and stage 1 through stage 4 chronic kidney disease, or unspecified chronic kidney disease (principal); J18.9 Pneumonia, unspecified organism; I50.33 Acute on chronic diastolic (congestive) heart failure; J96.01 Acute respiratory failure with hypoxia; N17.9 Acute kidney failure, unspecified; D68.318 Other hemorrhagic disorder due to intrinsic circulating anticoagulants, antibodies, or inhibitors; I48.2 Chronic atrial fibrillation; N18.3 Chronic kidney disease, stage 3 (moderate); D63.1 Anemia in chronic kidney disease; I25.10 Atherosclerotic heart disease of native coronary artery without angina pectoris; E11.22 Type 2 diabetes mellitus with diabetic chronic kidney disease; E66.9 Obesity, unspecified; J44.9 Chronic obstructive pulmonary disease, unspecified; Z66 Do not resuscitate; L40.9 Psoriasis, unspecified; E78.5 Hyperlipidemia, unspecified; K21.9 Gastro-esophageal reflux disease without esophagitis; I95.9 Hypotension, unspecified; G47.33 Obstructive sleep apnea (adult) (pediatric); I27.20 Pulmonary hypertension, unspecified; Z79.899 Other long term (current) drug therapy; Z79.82 Long term (current) use of aspirin; Z79.890 Hormone replacement therapy; Z79.4 Long term (current) use of insulin; Z95.5 Presence of coronary angioplasty implant and graft; Z87.891 Personal history of nicotine dependence; Z88.0 Allergy status to penicillin; Z88.8 Allergy status to other drugs, medicaments and biological substances; Z82.49 Family history of ischemic heart disease and other diseases of the circulatory system
CPT/HCPCS: 36415; 36430; 36600; 71045; 71250; 80048; 80053; 80202; 81001; 82550; 82553; 82803; 82962; 83605; 83735; 83880; 84443; 84484; 85025; 85027; 85610; 85730; 86850; 86900; 86901; 86920; 87040; 87070; 87205; 93005; 93010; 93306; 94640; 94660; 94668; 94799; 96374; 99291; C1751; J0692; J1160; J1815; J1940; J2920; J2930; J3370; J3490; J7030; J7040; J7050; J7060; J7512; P9016

== ENCOUNTER 2018-11-02 15:18 | Inpatient (IN) | payer MEDICARE, MEDICAID ==
[2018-11-02] MEDS ORDERED: METHYLPREDNISOLONE INJ 125 MG/2 ML SDV IV ONE (15:31)
[2018-11-02] MEDS ORDERED: IPRATROPIUM/ALBUTEROL 0.5-2.5 MG/3 ML AMPUL NEB ONE (15:31)
--- NOTE | 2018-11-02 15:33 | ER Document Report ---
ED General - General Stated Complaint: DIFFICULTY BREATHING Time Seen by Provider: 11/02/18 15:30 Mode of Arrival: Medic Information source: Patient, Emergency Med Personnel, [facility] Records Notes: 78-year-old female with congestive heart failure, coronary artery disease, type 2 diabetes, pulmonary hypertension, hypertension, COPD, recent diagnosis with age And recent discharge from the hospital presents via EMS from her primary care physician's office. Patient was discharged 2 days prior to arrival from [facility] where she was treated for H CAP, PARDEEP, A. fib with RVR and COPD. Patient did complete her antibiotic course prior to discharge. She states that she has had shortness of breath since discharge with worsening today. EMS reported that they did find the patient to be hypoxic upon their ar rival with an O2 saturation of 90%. Patient does not wear home O2. TRAVEL OUTSIDE OF THE [place] IN LAST 30 DAYS: No - HPI Onset: Just prior to arrival Onset/Duration: Sudden Quality of pain: No pain Severity: None Associated symptoms: Leg swelling, Shortness of breath. denies: Chest pain, Nonproductive cough, Productive cough, Headache, Nausea, Vomiting Exacerbated by: Movement, Walking Relieved by: Denies Similar symptoms previously: Yes - Related Data Allergies/Adverse Reactions: methotrexate [Methotrexate] Allergy (Verified 02/18/18 09:31) Penicillins Allergy (Verified 02/18/18 09:31) Past Medical History - General Information source: Patient, Friend, Emergency Med Personnel, [facility] Records - Social History Smoking Status: Former Smoker Frequency of alcohol use: None Drug Abuse: None Lives with: Alone Family History: Reviewed & Not Pertinent Patient has suicidal ideation: No Patient has homicidal ideation: No - Past Medical History Cardiac Medical History: Reports: Hx Congestive Heart Failure, Hx Coronary Artery Disease - With 2 stents in the past, Hx Hypercholesterolemia, Hx Hypertension Pulmonary Medical History: Denies: Hx Tuberculosis Endocrine Medical History: Reports: Hx Diabetes Mellitus Type 2 Renal/ Medical History: Denies: Hx Peritoneal Dialysis GI Medical History: Reports: Hx Gastroesophageal Reflux Disease Skin Medical History: Reports Hx Psoriasis Past Surgical History: Reports: Hx Cardiac Catheterization, Hx Herniorrhaphy. Denies: Hx Pacemaker - Immunizations Hx Diphtheria, Pertussis, Tetanus Vaccination: No Review of Systems - Review of Systems Constitutional: Malaise, Weakness EENT: denies: Difficulty swallowing Cardiovascular: Dizziness, Edema. denies: Chest pain Respiratory: Short of breath, Wheezing Gastrointestinal: Abdominal pain Genitourinary: denies: Dysuria, Flank pain Female Genitourinary: No symptoms reported Musculoskeletal: denies: Back pain Skin: denies: Rash Hematologic/Lymphatic: Anemia Neurological/Psychological: denies: Confusion, Headaches -: Yes All other systems reviewed and negative Physical Exam - Vital signs Vitals: BP Pulse Ox 154/95 H 100 11/02/18 15:29 11/02/18 15:29 - Notes Notes: PHYSICAL EXAMINATION: GENERAL: Ill-appearing, moderate respiratory distress. HEAD: Atraumatic, normocephalic. EYES: Pupils equal round and reactive to light, extraocular movements intact, conjunctiva are normal. ENT: Nares patent, oropharynx clear without exudates. Moist mucous membranes. NECK: Normal range of motion, supple without lymphadenopathy LUNGS: Increased work of breathing, tachypnea, hypoxia, accessory muscle use, diffuse wheezing in all lung dexter. HEART: Tachycardic, iregular rhythm ABDOMEN: Soft, nontender, nondistended abdomen. No guarding, no rebound. No masses appreciated. Female : deferred Musculoskeletal: Normal range of motion, right lower extremity swelling with 1+ pitting edema. No cyanosis. NEUROLOGICAL: Cranial nerves grossly intact. Normal speech, normal gait. Normal sensory, motor exams PSYCH: Normal mood, normal affect. SKIN: Warm, Dry, normal turgor, no rashes or lesions noted. Course - Re-evaluation Re-evalutation: Laboratory 11/02/18 11/02/18 11/02/18 14:13 15:45 15:45 WBC 12.5 H RBC 2.65 L Hgb 8.1 L Hct 24.9 L MCV 94 D MCH 30.6 MCHC 32.6 RDW 19.5 H Plt Count 206 Seg Neutrophils % 84.9 H Lymphocytes % 8.3 L Monocytes % 5.8 Eosinophils % 0.3 Basophils % 0.7 Absolute Neutrophils 10.6 H Absolute Lymphocytes 1.0 Absolute Monocytes 0.7 Absolute Eosinophils 0.0 Absolute Basophils 0.1 Carbonic Acid 1.20 HCO3/H2CO3 Ratio 23:1 ABG pH 7.47 H ABG pCO2 39.9 ABG pO2 317.8 H ABG HCO3 28.6 H ABG Total CO2 29.9 H ABG O2 Saturation 99.8 H ABG Base Excess 4.7 FiO2 50% Sodium 140.5 Potassium 4.4 Chloride 108 H Carbon Dioxide 28 Anion Gap 5 BUN 43 H Creatinine 0.94 Est GFR ( Amer) > 60 Est GFR (Non-Af Amer) 57 L Glucose 231 H Calcium 8.8 Total Bilirubin 0.8 Direct Bilirubin 0.5 H Neonat Total Bilirubin Not Reportable Neonat Direct Bilirubin Not Reportable Neonat Indirect Bili Not Reportable AST 43 H ALT 38 Alkaline Phosphatase 80 Troponin I NT-Pro-B Natriuret Pep Total Protein 5.6 L Albumin 3.0 L 11/02/18 15:45 WBC RBC Hgb Hct MCV MCH MCHC RDW Plt Count Seg Neutrophils % Lymphocytes % Monocytes % Eosinophils % Basophils % Absolute Neutrophils Absolute Lymphocytes Absolute Monocytes Absolute Eosinophils Absolute Basophils Carbonic Acid HCO3/H2CO3 Ratio ABG pH ABG pCO2 ABG pO2 ABG HCO3 ABG Total CO2 ABG O2 Saturation ABG Base Excess FiO2 Sodium Potassium Chloride Carbon Dioxide Anion Gap BUN Creatinine Est GFR ( Amer) Est GFR (Non-Af Amer) Glucose Calcium Total Bilirubin Direct Bilirubin Neonat Total Bilirubin Neonat Direct Bilirubin Neonat Indirect Bili AST ALT Alkaline Phosphatase Troponin I 0.075 NT-Pro-B Natriuret Pep 5760 H Total Protein Albumin Chest X-Ray 11/02/18 15:31 IMPRESSION: NO ACUTE RADIOGRAPHIC FINDING IN THE CHEST. 11/02/18 15:48 78-year-old female presents via EMS from Dr. Hwang's office where she just today establish primary care. Patient's home health aide is at the bedside and states that the patient has progressively declined since discharge. She states that she is unable to get herself out of bed, walk around or care for herself. Patient has been complaining of right lower extremity pain, diffuse abdominal pain. Upon arrival vitals are reviewed and patient is tachypneic, hypoxic. Patient does display accessory muscle use, increased work of breathing. Lung exam is significant for diffuse wheezing. Physical exam is significant for right lower extremity swelling, 1+ edema. 11/02/18 15:50 Patient's echocardiogram reviewed that was performed on October 23, 2018 and showed an EF of greater than 60. 11/02/18 16:33 EKG was obtained and showed the patient to be in atrial fibrillation with RVR with a heart rate of 131. Cardizem bolus and drip were initiated. Patient was placed on BiPAP. Patient did receive Solu-Medrol and breathing treatments prior to arrival. An additional breathing treatment and magnesium were given. 11/02/18 16:43 Patient reevaluated and is resting more comfortably on BiPAP. Heart rate has improved and is now 100. 11/02/18 16:44 11/02/18 17:01 Venous Doppler of the right lower extremity was obtained and negative. Tech did note a hematoma-like area in the right inguinal area. 11/02/18 17:37 - Vital Signs Vital signs: Temp Pulse Resp BP Pulse Ox 99.8 F 122 H 21 H 138/81 H 98 11/02/18 16:40 11/02/18 16:40 11/02/18 20:44 11/02/18 20:01 11/02/18 20:44 - Laboratory Result Diagrams: 11/02/18 15:45 11/02/18 15:45 Laboratory results interpreted by me: 11/02/18 11/02/18 11/02/18 14:13 15:45 15:45 WBC 12.5 H RBC 2.65 L Hgb 8.1 L Hct 24.9 L RDW 19.5 H Seg Neutrophils % 84.9 H Lymphocytes % 8.3 L Absolute Neutrophils 10.6 H ABG pH 7.47 H ABG pO2 317.8 H ABG HCO3 28.6 H ABG Total CO2 29.9 H ABG O2 Saturation 99.8 H Chloride 108 H BUN 43 H Est GFR (Non-Af Amer) 57 L Glucose 231 H Direct Bilirubin 0.5 H AST 43 H NT-Pro-B Natriuret Pep Total Protein 5.6 L Albumin 3.0 L TSH 11/02/18 11/02/18 15:45 15:45 WBC RBC Hgb Hct RDW Seg Neutrophils % Lymphocytes % Absolute Neutrophils ABG pH ABG pO2 ABG HCO3 ABG Total CO2 ABG O2 Saturation Chloride BUN Est GFR (Non-Af Amer) Glucose Direct Bilirubin AST NT-Pro-B Natriuret Pep 5760 H Total Protein Albumin TSH 5.52 H - Diagnostic Test Radiology reviewed: Image reviewed, Reports reviewed - EKG Interpretation by Me Rate: Tachycardia Rhythm: A.Fib When compared to previous EKG there are: No significant change Critical Care Note - Critical Care Note Total time excluding time spent on procedures (mins): 40 - Minutes of critical care time spent in direct contact evaluating and reevaluating the patient, treating symptoms, reviewing labs and studies and speaking with family and consultants excluding any procedures Discharge - Discharge Clinical Impression: Atrial fibrillation with rapid ventricular response, COPD exacerbation, Respiratory distress, Diabetes mellitus type 2 in obese, Right leg swelling Anemia Qualifiers: Anemia type: unspecified type Qualified Code(s): D64.9 - Anemia, unspecified Condition: Fair Disposition: ADMITTED INPATIENT Admitting Provider: Carlos (Hospitalist) Unit Admitted: [facility]
[2018-11-02] MEDS ORDERED: DILTIAZEM HCL/D5W 125 MG/125 ML RTUINJ IV PRN (15:37)
[2018-11-02] MEDS ORDERED: DILTIAZEM HCL INJ 25 MG/5 ML VIAL IV ONE (15:38)
[2018-11-02] MEDS: MAGNESIUM SULFATE/D5W 1 GM/100 ML RTUPB IV SCH ×2 (15:55→16:08)
--- NOTE | 2018-11-02 16:12 | RADIOLOGY REPORT (SQ) ---
EXAM DESCRIPTION: CHEST SINGLE VIEW COMPLETED DATE/TIME: 11/02/2018 3:53 pm REASON FOR STUDY: sob COMPARISON: 10/25/2018 EXAM PARAMETERS: NUMBER OF VIEWS: One view. TECHNIQUE: Single frontal radiographic view of the chest acquired. RADIATION DOSE: NA LIMITATIONS: None. FINDINGS: LUNGS AND PLEURA: No opacities, masses or pneumothorax. No pleural effusion. MEDIASTINUM AND HILAR STRUCTURES: No masses. Contour normal. HEART AND VASCULAR STRUCTURES: Heart normal in size. Normal vasculature. BONES: No acute findings. HARDWARE: None in the chest. OTHER: No other significant finding. IMPRESSION: NO ACUTE RADIOGRAPHIC FINDING IN THE CHEST. TECHNICAL DOCUMENTATION: JOB ID: [id number] [employer]- All Rights Reserved Reading location - IP/workstation name: [email or web address]
[2018-11-02 16:20] LABS: ABSOLUTE BASOPHILS # (AUTO) 0.1 10^3/uL (0.0-0.2); ABSOLUTE MONOCYTES (AUTO) 0.7 10^3/uL (0.1-1.4); ABSOLUTE NEUT (AUTO) 10.6 10^3/uL (1.7-8.2); BASOPHILS % (AUTO) 0.7 % (0-2); EOSINOPHILS % (AUTO) 0.3 % (0-6); HEMATOCRIT 24.9 % (36.0-47.0); HEMOGLOBIN 8.1 g/dL (12.0-15.5); LYMPHOCYTES % (AUTO) 8.3 % (13-45); MEAN CORPUSCULAR HEMOGLOBIN 30.6 pg (27.0-33.4); MEAN CORPUSCULAR HGB CONC 32.6 g/dL (32.0-36.0); MONOCYTES % (AUTO) 5.8 % (3-13); PLATELET COUNT 206 10^3/uL (150-450); RED BLOOD COUNT 2.65 10^6/uL (3.72-5.28); RED CELL DISTRIBUTION WIDTH 19.5 % (11.5-14.0); SEGMENTED NEUTROPHILS % (AUTO) 84.9 % (42-78); TOTAL CELLS COUNTED % (AUTO) 100 %; WHITE BLOOD COUNT 12.5 10^3/uL (4.0-10.5)
[2018-11-02 16:24] LABS: ALANINE AMINOTRANSFERASE 38 U/L (9-52); ALKALINE PHOSPHATASE 80 U/L (38-126); ANION GAP 5 (5-19); ASPARTATE AMINO TRANSFERASE 43 U/L (14-36); BILIRUBIN,DIRECT 0.5 mg/dL (0.0-0.4); BILIRUBIN,TOTAL 0.8 mg/dL (0.2-1.3); BLOOD UREA NITROGEN 43 mg/dL (7-20); CALCIUM 8.8 mg/dL (8.4-10.2); GLUCOSE 231 mg/dL (75-110); POTASSIUM 4.4 mmol/L (3.6-5.0); TOTAL PROTEIN 5.6 g/dL (6.3-8.2)
[2018-11-02 16:30] LABS: CARBON DIOXIDE 28 mmol/L (22-30); CHLORIDE 108 mmol/L (98-107); MEAN CORPUSCULAR VOLUME 94 fl (80-97); SODIUM 140.5 mmol/L (137-145)
[2018-11-02 16:37] LABS: TROPONIN I 0.075 ng/mL
[2018-11-02 16:40] LABS: ARTERIAL BLOOD BASE EXCESS 4.7 mmol/L; ARTERIAL BLOOD HCO3 28.6 mmol/L (20-24); ARTERIAL BLOOD O2 SATURATION 99.8 % (94-98); ARTERIAL BLOOD PCO2 39.9 mmHg (35-45); ARTERIAL BLOOD PH 7.47 (7.35-7.45); ARTERIAL BLOOD PO2 317.8 mmHg (80-100); ARTERIAL BLOOD TOTAL CO2 29.9 mmol/L (21-25)
[2018-11-02 16:42] LABS: ARTERIAL BLOOD FIO2 50%
[2018-11-02] MEDS ORDERED: ACETAMINOPHEN 325 MG TABLET PO PRN (18:44)
[2018-11-02] MEDS ORDERED: ONDANSETRON 4 MG TAB.RAPDIS PO PRN (18:44)
[2018-11-02 19:32] LABS: FREE T3 3.75 pg/mL (2.77-5.27); FREE T4 (FREE THYROXINE) 1.14 ng/dL (0.78-2.19)
[2018-11-02 19:45] LABS: THYROID STIMULATING HORMONE 5.52 uIU/mL (0.47-4.68)
[2018-11-02] MEDS ORDERED: DILTIAZEM HCL 90 MG TABLET PO ONE (20:00)
[2018-11-02] MEDS: LEVALBUTEROL HCL NEB 1.25 MG/3 ML AMPUL NEB SCH (20:12)
[2018-11-02] MEDS: IPRATROPIUM BROMIDE 0.02% NEB 0.5 MG/2.5 ML AMPUL NEB SCH (20:13)
--- NOTE | 2018-11-02 20:49 | EKG REPORT ---
SEVERITY:- ABNORMAL ECG - ATRIAL FIBRILLATION PROBABLE INFERIOR INFARCT, OLD ANTERIOR INFARCT, OLD : Confirmed by: Cathryn Lopez 02-Nov-2018 20:47:25
[2018-11-02] MEDS: GUAIFENESIN 600 MG TABLET.SA PO SCH (21:48)
[2018-11-02] MEDS: ATORVASTATIN CALCIUM 40 MG TABLET PO SCH (21:48)
[2018-11-02] MEDS: HEPARIN SOD (PORCINE) 5,000 UNIT/ML 1 ML SYRINGE SUBCUT SCH (21:49)
[2018-11-02] MEDS: INSULIN GLARGINE,HUM.REC.ANLOG 1,000 UNIT/10 ML VIAL SUBCUT SCH (21:55)
[2018-11-02] MEDS: CARVEDILOL 12.5 MG TABLET PO SCH (21:57)
[2018-11-03] MEDS: LEVALBUTEROL HCL NEB 1.25 MG/3 ML AMPUL NEB SCH ×4 (01:26→20:30)
[2018-11-03] MEDS: IPRATROPIUM BROMIDE 0.02% NEB 0.5 MG/2.5 ML AMPUL NEB SCH ×4 (01:26→20:30)
--- NOTE | 2018-11-03 01:57 | RADIOLOGY REPORT (SQ) ---
CLINICAL HISTORY: rle swelling recent hospitalization COMPARISON: None. TECHNIQUE: US EXTREMITY VEINS UNILATERAL on 11/02/2018 3:34 PM CDT FINDINGS: There is a probable 4.7 x 2.0 cm hematoma in the right groin. The right femoral, popliteal and left common femoral veins are normally compressible with patent flow and augmentation. The right common femoral vein is not assessed. IMPRESSION: No DVT. Large right groin probable hematoma.
[2018-11-03] MEDS: HEPARIN SOD (PORCINE) 5,000 UNIT/ML 1 ML SYRINGE SUBCUT SCH ×3 (05:05→21:15)
[2018-11-03] MEDS: LEVOTHYROXINE SODIUM 0.025 MG TABLET PO SCH (05:11)
[2018-11-03] MEDS: PANTOPRAZOLE SODIUM 40 MG TABLET.DR PO SCH (05:11)
[2018-11-03 05:48] LABS: HEMATOCRIT 21.4 % (36.0-47.0); MEAN CORPUSCULAR HEMOGLOBIN 30.8 pg (27.0-33.4); MEAN CORPUSCULAR VOLUME 93 fl (80-97); PLATELET COUNT 164 10^3/uL (150-450); RED CELL DISTRIBUTION WIDTH 19.3 % (11.5-14.0); WHITE BLOOD COUNT 10.8 10^3/uL (4.0-10.5)
[2018-11-03 05:53] LABS: INTERNATIONAL RATION (INR) 1.15; PROTHROMBIN TIME 15.3 SEC (11.4-15.4)
[2018-11-03 05:54] LABS: PARTIAL THROMBOPLASTIN TIME 25.3 SEC (23.5-35.8)
[2018-11-03 06:14] LABS: ANION GAP 9 (5-19); BLOOD UREA NITROGEN 43 mg/dL (7-20); CALCIUM 8.4 mg/dL (8.4-10.2); CARBON DIOXIDE 24 mmol/L (22-30); CHLORIDE 105 mmol/L (98-107); CHOLESTEROL 137.55 mg/dL (0-200); HEMOGLOBIN 7.1 g/dL (12.0-15.5); POTASSIUM 4.9 mmol/L (3.6-5.0); SODIUM 137.8 mmol/L (137-145); TRIGLYCERIDES 195 mg/dL (<150)
[2018-11-03 06:25] LABS: DIRECT LDL 62 mg/dL (<100)
[2018-11-03 06:31] LABS: GLUCOSE 404 mg/dL (75-110)
[2018-11-03 06:32] LABS: ARTERIAL BLOOD BASE EXCESS 2.9 mmol/L; ARTERIAL BLOOD FIO2 3L; ARTERIAL BLOOD H2CO3 1.18 mmol/L (1.05-1.35); ARTERIAL BLOOD PCO2 39.3 mmHg (35-45); ARTERIAL BLOOD PH 7.46 (7.35-7.45); ARTERIAL BLOOD PO2 146.4 mmHg (80-100); ARTERIAL BLOOD TOTAL CO2 28.2 mmol/L (21-25)
[2018-11-03 06:36] LABS: ABSOLUTE LYMPHOCYTES# (MANUAL) 0.1 10^3/uL (0.5-4.7); ABSOLUTE NEUTROPHILS# (MANUAL) 10.7 10^3/uL (1.7-8.2); BASOPHILS % (MANUAL) 0 % (0-2); EOSINOPHILS % (MANUAL) 0 % (0-6); LYMPHOCYTES % (MANUAL) 1 % (13-45); MONOCYTES % (MANUAL) 0 % (3-13); SEGMENTED NEUTROPHILS % (MAN) 99 % (42-78); TOTAL CELLS COUNTED 100
[2018-11-03 06:38] LABS: ANISOCYTOSIS 2+; HYPOCHROMASIA SLIGHT; OVALOCYTES 1+; PLATELET COMMENT ADEQUATE; POIKILOCYTOSIS 1+; SCHISTOCYTES SLIGHT; TEAR DROP CELLS SLIGHT; TOXIC GRANULATION SLIGHT
[2018-11-03] MEDS ORDERED: DEXTROSE 50%-WATER SYRINGE 12.5 GM/25 ML DOSE IV PRN (07:30)
[2018-11-03] MEDS ORDERED: GLUCAGON,HUMAN RECOMB 1 MG INJ IM PRN (07:30)
[2018-11-03] MEDS ORDERED: DEXTROSE 40% GEL 15 GM TUBE PO PRN (07:30)
[2018-11-03] MEDS ORDERED: DEXTROSE 40% GEL 15 GM TUBE X 2 PO PRN (07:30)
[2018-11-03] MEDS ORDERED: DEXTROSE 50%-WATER SYRINGE 25 GM/50 ML DOSE IV PRN (07:30)
[2018-11-03] MEDS: INSULIN LISPRO 100 UNIT/ML 3 ML VIAL SUBCUT SCH ×4 (09:08→21:14)
[2018-11-03] MEDS: CHOLECALCIFEROL (D3) 1,000 UNIT TABLET PO SCH (09:48)
[2018-11-03] MEDS: CHOLECALCIFEROL (D3) 400 UNIT TABLET PO SCH (09:48)
[2018-11-03] MEDS: GUAIFENESIN 600 MG TABLET.SA PO SCH ×2 (09:48→21:15)
[2018-11-03] MEDS: BUMETANIDE 1 MG TABLET PO SCH (09:48)
[2018-11-03] MEDS: SERTRALINE HCL 50 MG TABLET PO SCH (09:49)
[2018-11-03] MEDS: FERROUS SULFATE 325 MG TABLET PO SCH (09:49)
[2018-11-03] MEDS: CALCIUM CARBONATE 500 MG TABLET PO SCH (09:49)
[2018-11-03] MEDS: ASCORBIC ACID 500 MG TABLET PO SCH (09:49)
[2018-11-03] MEDS: PREDNISONE 5 MG TABLET PO SCH ×2 (09:49→17:09)
[2018-11-03] MEDS: LISINOPRIL 10 MG TABLET PO SCH (09:49)
[2018-11-03] MEDS: CARVEDILOL 12.5 MG TABLET PO SCH ×2 (09:49→21:14)
[2018-11-03] MEDS: DILTIAZEM HCL 240 MG CAPSULE.CR PO SCH (09:49)
[2018-11-03] MEDS: ASPIRIN 81 MG TABLET, ENT COATED PO SCH (09:50)
[2018-11-03] MEDS ORDERED: (PENDING PHARMACY ID) (Lisinopril [Prinivil] 20 MG) PO SCH (10:00)
[2018-11-03] MEDS ORDERED: [UNRECOGNIZED DRUG - OTHER] PO SCH (10:00)
[2018-11-03] MEDS ORDERED: CALCIUM CARBONATE PO SCH (10:00)
[2018-11-03] MEDS ORDERED: VITAMIN D3 PO SCH (10:00)
[2018-11-03] MEDS ORDERED: (PENDING PHARMACY ID) (Bumetanide [Bumex 2 Mg Tablet] 2 MG) PO SCH (10:00)
[2018-11-03] MEDS ORDERED: CYCLOSPORINE 0.05% OPH EMULSIO 0.4 ML DROPERETTE OU ONE (14:00)
--- NOTE | 2018-11-03 17:11 | PDOC H&P ---
History of Present Illness Admission Date/PCP: 11/02/18 17:37 GERSON MAY Patient complains of: Atrial fibrillation with rapid ventricular response and acute hypoxic respiratory failure History of Present Illness: PREETI ELIZABETH is a 78 year old female who I discharged on Friday. Unfortunately the patient was not given the hard copies of her prescriptions according to the patient and her caregiver. Therefore from Friday afternoon through today she did not take any medications and subsequently decompensated. She was quite stable at the time of discharge. She had increasing shortness of breath and tachycardia. She also has a cough productive of yellow sputum. Past Medical History Cardiac Medical History: Reports: Atrial Fibrillation, Congestive Heart Failure, Coronary Artery Disease - With 2 stents in the past, Hyperlipidema, Hypertension Pulmonary Medical History: Reports: Chronic Obstructive Pulmonary Disease (COPD), Respiratory Failure Denies: Tuberculosis EENT Medical History: Denies: Ears, Nose, Throat Neurological Medical History: Denies: Ischemic CVA, Migraine, Multiple Sclerosis Endocrine Medical History: Reports: Diabetes Mellitus Type 2 Renal/ Medical History: Denies: Chronic Kidney Disease, End Stage Renal Disease Malignancy Medical History: Reports: None GI Medical History: Reports: Gastroesophageal Reflux Disease Musculoskeltal Medical History: Reports: Arthritis Skin Medical History: Reports: Psoriasis Psychiatric Medical History: Reports: Tobacco Dependency Denies: Alcohol Dependency, Bipolar Disorder Traumatic Medical History: Reports: None Hematology: Denies: Anemia, Bleeding Tendencies Infectious Medical History: Reports: None Past Surgical History Past Surgical History: Reports: Cardiac Catheterization, Herniorrhaphy Denies: Pacemaker Social History Information Source: Patient, [facility] Records Lives with: Other - The patient has hired a caregiver to live with her 17/02. She is present at the bedside. Smoking Status: Former Smoker Frequency of Alcohol Use: None Hx Recreational Drug Use: No Drugs: None Hx Prescription Drug Abuse: No - Advance Directive Resuscitation Status: Do Not Resuscitate Family History Family History: CAD Parental Family History Reviewed: Yes Children Family History Reviewed: Yes Sibling(s) Family History Reviewed.: Yes Medication/Allergy Home Medications: Allopurinol [Zyloprim 100 mg Tablet] 100 mg PO QHS 10/19/18 Apremilast [Otezla] 30 mg PO Q12 10/19/18 Ascorbic Acid [Vitamin C 500 mg Tablet] 500 mg PO DAILY 10/19/18 Aspirin [Ecotrin 81 mg EC Tablet] 81 mg PO DAILY 10/19/18 Atorvastatin Calcium [Lipitor 40 mg Tablet] 40 mg PO QHS 10/19/18 Bumetanide [Bumex 2 mg Tablet] 2 mg PO DAILY 10/19/18 Calcium Carbonate/Vitamin D3 [Calcium 600 + Vit D 400 Tablet] 2 tab PO DAILY 10/19/18 Cholecalciferol (Vitamin D3) [Vitamin D3 1000 Unit Tablet] 1,000 unit PO DAILY 10/19/18 Ferrous Sulfate [Feosol 325 mg Tablet] 325 mg PO DAILY 10/19/18 Levothyroxine Sodium [Synthroid 0.025 mg Tablet] 0.025 mg PO Q6AM 10/19/18 Lisinopril [Prinivil] 20 mg PO DAILY 10/19/18 Pantoprazole Sodium [Protonix [address] Tablet] 40 mg PO Q6AM 10/19/18 Prednisone [Deltasone 5 mg Tablet] 5 mg PO BID 10/19/18 Sertraline HCl [Zoloft 50 mg Tablet] 50 mg PO DAILY 10/19/18 Vit A/Vit C/Vit E/Zinc/Copper [Preservision Areds Softgel] 2 cap PO DAILY 10/19/18 Allergies/Adverse Reactions: methotrexate [Methotrexate] Allergy (Verified 02/18/18 09:31) Penicillins Allergy (Verified 02/18/18 09:31) Review of Systems Constitutional: ABSENT: chills, fever(s), night sweats Eyes: PRESENT: other - Wears glasses. ABSENT: visual disturbances Ears: ABSENT: hearing changes Nose, Mouth, and Throat: ABSENT: mouth pain, sore throat Cardiovascular: PRESENT: dyspnea on exertion, edema, palpitations Respiratory: PRESENT: cough, dyspnea, sputum - Yellow. ABSENT: hemoptysis Gastrointestinal: ABSENT: abdominal pain, bloating, heartburn, melena, nausea, vomiting Genitourinary: ABSENT: dysuria, hematuria Musculoskeletal: PRESENT: joint swelling - Ecchymosis right groin, muscle weakness - Generalized Integumentary: PRESENT: other - Large ecchymosis right thigh and groin where central line was removed. The area is tender as well. Neurological: ABSENT: confusion, convulsions, syncope Psychiatric: ABSENT: anxiety, hallucinations Endocrine: ABSENT: cold intolerance, heat intolerance, polydipsia, polyphagia, polyuria Hematologic/Lymphatic: PRESENT: easy bleeding, easy bruising. ABSENT: lympha denopathy Physical Exam Vital Signs: Temp Pulse Resp BP Pulse Ox 99.8 F 122 H 17 142/84 H 99 11/02/18 16:40 11/02/18 16:40 11/02/18 17:01 11/02/18 17:00 11/02/18 17:01 Intake & Output 11/01/18 11/02/18 11/03/18 06:59 06:59 06:59 Intake Total 200 Balance 200 Weight 68.039 kg General appearance: PRESENT: cooperative, severe distress - Moderate to severe distress. Currently on BiPAP., well-developed Head exam: PRESENT: atraumatic, normocephalic Eye exam: PRESENT: conjunctiva pale, EOMI. ABSENT: scleral icterus Ear exam: PRESENT: normal external ear exam Mouth exam: PRESENT: other - BiPAP mask in place. Neck exam: ABSENT: carotid bruit, lymphadenopathy, tenderness Respiratory exam: PRESENT: accessory muscle use, rales, tachypnea. ABSENT: rhonchi, wheezes Cardiovascular exam: PRESENT: irregular rhythm, tachycardia Vascular exam: PRESENT: pallor GI/Abdominal exam: PRESENT: normal bowel sounds, soft. ABSENT: distended, guarding, tenderness Rectal exam: PRESENT: deferred Extremities exam: PRESENT: other - Gauze dressing in the right groin. There is ecchymosis in the proximal thigh with lability and large areas of ecchymosis on the posterior thigh. The tissue on the medial thigh/groin is dense consistent with hematoma. Neurological exam: PRESENT: alert, awake, oriented to person, oriented to place, oriented to time, oriented to situation Psychiatric exam: PRESENT: appropriate affect. ABSENT: agitated, anxious Focused psych exam: ABSENT: delusional, restlessness Skin exam: PRESENT: other - Ecchymosis Results Laboratory Results: 11/02/18 15:45 11/02/18 15:45 11/02/18 11/02/18 11/02/18 14:13 15:45 15:45 WBC 12.5 H RBC 2.65 L Hgb 8.1 L Hct 24.9 L MCV 94 D MCH 30.6 MCHC 32.6 RDW 19.5 H Plt Count 206 Seg Neutrophils % 84.9 H Lymphocytes % 8.3 L Monocytes % 5.8 Eosinophils % 0.3 Basophils % 0.7 Absolute Neutrophils 10.6 H Absolute Lymphocytes 1.0 Absolute Monocytes 0.7 Absolute Eosinophils 0.0 Absolute Basophils 0.1 Carbonic Acid 1.20 HCO3/H2CO3 Ratio 23:1 ABG pH 7.47 H ABG pCO2 39.9 ABG pO2 317.8 H ABG HCO3 28.6 H ABG O2 Saturation 99.8 H ABG Base Excess 4.7 FiO2 50% Sodium 140.5 Potassium 4.4 Chloride 108 H Carbon Dioxide 28 Anion Gap 5 BUN 43 H Creatinine 0.94 Est GFR ( Amer) > 60 Est GFR (Non-Af Amer) 57 L Glucose 231 H Calcium 8.8 Total Bilirubin 0.8 AST 43 H ALT 38 Alkaline Phosphatase 80 Total Protein 5.6 L Albumin 3.0 L 11/02/18 15:45 Troponin I 0.075 NT-Pro-B Natriuret Pep 5760 H Impressions: Chest X-Ray 11/02/18 15:31 IMPRESSION: NO ACUTE RADIOGRAPHIC FINDING IN THE CHEST. Assessment and Plan - Diagnosis (1) Atrial fibrillation with rapid ventricular response Is this a current diagnosis for this admission?: Yes Plan: The patient is on a diltiazem drip. At the time of discharge her pulse was stable on extended release diltiazem 240 mg daily as well as carvedilol 12.5 mg twice daily. I will give her 90 mg of immediate release diltiazem this evening and resume her 240 mg extended release dose tomorrow morning. I will resume her carvedilol 12.5 mg twice daily. I am going to hold her anticoagulation. She may need a PICC line or central line for access as her veins are quite poor. She has a has bled score of 2 points which is moderate risk of major bleeding. She has a chads vascular score of 6 points which is approximately 9.7% stroke risk per year. Considering her weakness and gait instability it is probably more of the risk than benefit for long-term anticoagulation. (2) Diabetes mellitus type 2 in obese Is this a current diagnosis for this admission?: Yes Plan: Serum glucose is elevated. She was discharged on Lantus but I will increase the dose. We will bring her steroid dose down to baseline and this should help with glucose management. (3) COPD exacerbation Is this a current diagnosis for this admission?: Yes Plan: With the initiation of an inhaler regimen her congested cough improved. She will be placed on Brio Ellipta and Spiriva at this time. She was discharged on a prednisone taper however I will resume her baseline dose of 5 mg twice daily. (4) Right leg swelling Is this a current diagnosis for this admission?: Yes Plan: Patient developed hematoma when her central line was removed. She was on chronic anticoagulation because of the atrial fibrillation. The right leg is still slightly swollen however Doppler study revealed no deep venous thrombosis. It is likely all from hematoma. (5) Acute on chronic diastolic CHF (congestive heart failure) Is this a current diagnosis for this admission?: Yes Plan: The patient has been without diuretics since Friday. We will resume Bumex therapy. She may require additional intravenous furosemide. Continue to monitor. She is also on lisinopril and carvedilol. (6) Chronic kidney disease, stage 3 Is this a current diagnosis for this admission?: Yes Plan: GFR and serum creatinine are better than last week. Part of this may be due to no diuretic for 2 days. Will resume Bumex and monitor function. (7) Blood loss anemia Is this a current diagnosis for this admission?: Yes Plan: Patient had bleeding with removal of the right femoral central line. There is a hematoma. Will monitor hemoglobin. She would likely benefit from transfusion. Will reassess labs tomorrow. (8) Coronary artery disease Qualifiers: Coronary Disease-Associated Artery/Lesion type: unspecified vessel or lesion type Associated angina: without angina Is this a current diagnosis for this admission?: Yes Plan: Continue aspirin and statin therapy as well as antihypertensives. We also need to get her heart rate under control. Elevated troponin is likely due to strain. She is not complaining of any chest pain. (9) Hypertension Qualifiers: Hypertension type: essential hypertension Qualified Code(s): I10 - Essential (primary) hypertension Is this a current diagnosis for this admission?: Yes Plan: Resume medications as noted. Same medication regimen as when she was discharged on Friday. Monitor blood pressure and adjust medications accordingly. - Time Time Spent with patient: 70 minutes Time Spent with patient: 35 or more minutes Medications reviewed and adjusted accordingly: Yes - Inpatient Certification Based on my medical assessment, after consideration of the patient's comorbidities, presenting symptoms, or acuity I expect that the services needed warrant INPATIENT care.: Yes I certify that my determination is in accordance with my understanding of Medicare's requirements for reasonable and necessary INPATIENT services [42 CFR 412.3e].: Yes Medical Necessity: Significant Comorbidiites Make Outpatient Treatment Too Risky, Need For Continuous Telemetry Monitoring, Need for Nebulizer Therapy and Monitoring of Response, Risk of Complication if Not Cared For in Hospital Post Hospital Care: D/C Pulp Drier Firer Documentation
[2018-11-03 18:15] LABS: HEMATOCRIT 27.2 % (36.0-47.0); MEAN CORPUSCULAR HEMOGLOBIN 30.4 pg (27.0-33.4); MEAN CORPUSCULAR HGB CONC 33.3 g/dL (32.0-36.0); MEAN CORPUSCULAR VOLUME 91 fl (80-97); PLATELET COUNT 178 10^3/uL (150-450); RED BLOOD COUNT 2.98 10^6/uL (3.72-5.28); RED CELL DISTRIBUTION WIDTH 17.3 % (11.5-14.0); WHITE BLOOD COUNT 14.9 10^3/uL (4.0-10.5)
[2018-11-03 18:42] LABS: ABSOLUTE LYMPHOCYTES# (MANUAL) 0.7 10^3/uL (0.5-4.7); ABSOLUTE MONOCYTES # (MANUAL) 0.4 10^3/uL (0.1-1.4); ABSOLUTE NEUTROPHILS# (MANUAL) 13.7 10^3/uL (1.7-8.2); BASOPHILS % (MANUAL) 0 % (0-2); EOSINOPHILS % (MANUAL) 0 % (0-6); LYMPHOCYTES % (MANUAL) 5 % (13-45); MONOCYTES % (MANUAL) 3 % (3-13); SEGMENTED NEUTROPHILS % (MAN) 92 % (42-78); TOTAL CELLS COUNTED 100
[2018-11-03 18:43] LABS: ANISOCYTOSIS 1+; PLATELET COMMENT ADEQUATE; PLATELET LARGE PRESENT; POLYCHROMASIA 1+; TOXIC VACUOLATION PRESENT
[2018-11-03] MEDS: FLUTICASONE/VILANTEROL 100-25 MCG/DOSE IH SCH (20:13)
[2018-11-03] MEDS: TIOTROPIUM BROMIDE DPI 5 CAP/KIT (18 MCG/CAP) IH SCH (20:15)
[2018-11-03] MEDS: ATORVASTATIN CALCIUM 40 MG TABLET PO SCH (21:14)
[2018-11-03] MEDS: INSULIN GLARGINE,HUM.REC.ANLOG 1,000 UNIT/10 ML VIAL SUBCUT SCH (21:15)
[2018-11-03] MEDS: CYCLOSPORINE 0.05% OPH EMULSIO 0.4 ML DROPERETTE OU SCH (21:17)
--- NOTE | 2018-11-03 22:54 | PDOC PROGRESS REPORT ---
Subjective Progress Note for:: 11/03/18 Subjective:: The patient is an 78 y/o female with a PMH of CHF, Severe Pulmonary Hypertension, HTN, HLD, CAD, Lt hilar lung nodule, and PAF who was just discharged from our facility after admission for treatment of HAP (r/t recent SNF stay) and exacerbations of her chronic medical conditions. She was seen on morning rounds; unfortunately, no family members are present. The patient was found to be sitting up to the recliner; comfortably on room air. She reports that she is feeling much better today with decreased dyspnea, orthopnea, and cough. She is noted to be very pleasant, but intermittently confused and forgetful. from speaking with the rest of her care team today, it is clear that the patient is having difficulty understanding/processing her multiple recent admissions and comorbid diagnoses. It is likely that the patient also has an element of underlying dementia that has been worsened by her recent acute illness. Of most concern is that the patient went without prescriptions for >24 horus resulting in a readmission for CHF exacerbation despite reportedly having a 24 hour caregiver (a friend has moved in with the patient to provide 24 hr supervision). My concern is that the patient's needs may outweigh the caregiver's well meaning capabilities. A palliative care consultation has been placed. Would recommend that all future planning (discharge planning, provider, consents, etc) be discussed with the patient's surrogate decision maker; the patient's brother, Ken Tate. She had no specific questions or concerns today. No concerns per nursing. Reason For Visit: RAPID ATRIAL FIBRILLATION Physical Exam Vital Signs: Temp Pulse Resp BP Pulse Ox 98.0 F 69 18 101/48 L 98 11/03/18 19:31 11/03/18 19:31 11/03/18 19:31 11/03/18 21:00 11/03/18 19:31 Intake & Output 11/02/18 11/03/18 11/04/18 06:59 06:59 06:59 Intake Total 240 1336 Balance 240 1336 Weight 76.1 kg General appearance: PRESENT: no acute distress, cooperative, obese, well- developed, well-nourished Head exam: PRESENT: atraumatic, normocephalic Eye exam: PRESENT: conjunctiva pale, EOMI, PERRLA. ABSENT: scleral icterus Mouth exam: PRESENT: moist, tongue midline Neck exam: ABSENT: carotid bruit, JVD, lymphadenopathy, thyromegaly Respiratory exam: PRESENT: clear to auscultation kaylee, decreased breath sounds - bibasilar, symmetrical, unlabored. ABSENT: rales, rhonchi, wheezes Cardiovascular exam: PRESENT: irregular rhythm, +S1, +S2. ABSENT: diastolic murmur, rubs, systolic murmur Pulses: PRESENT: normal dorsalis pedis pul Vascular exam: PRESENT: pallor GI/Abdominal exam: PRESENT: normal bowel sounds, soft. ABSENT: distended, guarding, mass, organolmegaly, rebound, tenderness Rectal exam: PRESENT: deferred Extremities exam: PRESENT: full ROM. ABSENT: calf tenderness, clubbing, pedal edema Neurological exam: PRESENT: alert, awake, oriented to person, oriented to place, oriented to time, oriented to situation, CN II-XII grossly intact, other - Technically orientated; however, pleasantly confused and conversational. ABSENT: motor sensory deficit Psychiatric exam: PRESENT: appropriate affect, normal mood. ABSENT: homicidal ideation, suicidal ideation Skin exam: PRESENT: dry, warm, other - hematoma to R femoral area w/ large area of eccymosis to the anterior, medial, and posterior thigh. ABSENT: cyanosis, rash Results Laboratory Results: 11/03/18 17:40 11/03/18 04:43 11/03/18 11/03/18 11/03/18 04:43 04:43 05:53 WBC 10.8 H RBC 2.30 L Hgb 7.1 L Hct 21.4 L MCV 93 MCH 30.8 MCHC 33.0 RDW 19.3 H Plt Count 164 Seg Neutrophils % Not Reportable Lymphocytes % Not Reportable Monocytes % Not Reportable Eosinophils % Not Reportable Basophils % Not Reportable Absolute Neutrophils Not Reportable Absolute Lymphocytes Not Reportable Absolute Monocytes Not Reportable Absolute Eosinophils Not Reportable Absolute Basophils Not Reportable Carbonic Acid 1.18 HCO3/H2CO3 Ratio 22:1 ABG pH 7.46 H ABG pCO2 39.3 ABG pO2 146.4 H ABG HCO3 27.0 H ABG O2 Saturation 99.0 H ABG Base Excess 2.9 FiO2 3L Sodium 137.8 Potassium 4.9 Chloride 105 Carbon Dioxide 24 Anion Gap 9 BUN 43 H Creatinine 1.05 Est GFR ( Amer) > 60 Est GFR (Non-Af Amer) 50 L Glucose 404 H* Calcium 8.4 Magnesium 2.4 H Triglycerides 195 H Cholesterol 137.55 LDL Cholesterol Direct 62 VLDL Cholesterol 39.0 H HDL Cholesterol 48 Blood Type Antibody Screen 11/03/18 11/03/18 07:37 17:40 WBC 14.9 H RBC 2.98 L Hgb 9.0 L Hct 27.2 L MCV 91 MCH 30.4 MCHC 33.3 RDW 17.3 H Plt Count 178 Seg Neutrophils % Not Reportable Lymphocytes % Not Reportable Monocytes % Not Reportable Eosinophils % Not Reportable Basophils % Not Reportable Absolute Neutrophils Not Reportable Absolute Lymphocytes Not Reportable Absolute Monocytes Not Reportable Absolute Eosinophils Not Reportable Absolute Basophils Not Reportable Carbonic Acid HCO3/H2CO3 Ratio ABG pH ABG pCO2 ABG pO2 ABG HCO3 ABG O2 Saturation ABG Base Excess FiO2 Sodium Potassium Chloride Carbon Dioxide Anion Gap BUN Creatinine Est GFR ( Amer) Est GFR (Non-Af Amer) Glucose Calcium Magnesium Triglycerides Cholesterol LDL Cholesterol Direct VLDL Cholesterol HDL Cholesterol Blood Type O NEGATIVE Antibody Screen NEGATIVE 11/02/18 11/03/18 15:45 04:43 Troponin I 0.075 NT-Pro-B Natriuret Pep 5760 H 6550 H Impressions: Chest X-Ray 11/02/18 15:31 IMPRESSION: NO ACUTE RADIOGRAPHIC FINDING IN THE CHEST. Venous Doppler Study 11/02/18 15:34 IMPRESSION: No DVT. Large right groin probable hematoma. Assessment and Plan - Diagnosis (1) Atrial fibrillation with rapid ventricular response Is this a current diagnosis for this admission?: Yes Plan: Now rate controlled; remains in afib. Secondary to medication noncompliance; reportedly did not receive her prescriptions at discharge. The patient is admitted to [facility] on continuous cardiac telemetry. During previous admission, she did require a diltizem drip. Fortunately, this admission, she quickly became rate controlled with resumption of p.o diltiazem. Continue Diltiazem 240 mg extended release and carvedilol 12.5 mg twice daily. Patient was discharged on chronic anticoagulation (Eliquis 2.5 mg BID); however, would advise against chronic anticoagulation in this patient as she is at high risk for severe bleeding event. HAS-BLED score 5 points; 9.1-12.5% yearly major bleed risk. CHADS-VASc score of 6 points which is approximately 9.7% stroke risk per year. (2) COPD exacerbation Is this a current diagnosis for this admission?: Yes Plan: Improved; decreased sypnea and cough today. Now off BiPAP and maintaining satur ations while at rest on room air. Supplemental oxygen and BiPAP as needed. Scheduled nebulizer treatments. Continue Brio Ellipta and Spiriva Resume her chronic prednisione dose of 5 mg twice daily. Mucinex twice daily. (3) Chronic kidney disease, stage 3 Is this a current diagnosis for this admission?: Yes Plan: GFR and serum creatinine are better than last week. Possibly related to having missed diuretic for 2 days. Have resumed home dose Bumex Will avoid nephrotoxic medications as able. Daily chemistries. (4) Diabetes mellitus type 2 in obese Is this a current diagnosis for this admission?: Yes Plan: A1C is 7.1% Consistent Carb/Cardiac diet. Serum glucose is elevated; possibly related to recent escalated steroid therapy. Patient is currently on Lantus; will watch glucose closely on her chronic prednisone dose, may be able to decrease dosing. A1C in patient of her age and expected lifespan is recommended to be <8.5%; decreased glucose control is allowed to prevent catestrophic hypoglycemic events. (5) Right leg swelling Is this a current diagnosis for this admission?: Yes Plan: Secondary to hematoma development from previous central line. She was on chronic anticoagulation because of the atrial fibrillation. The right leg is still slightly swollen however Doppler study revealed no deep venous thrombosis. It is likely all from hematoma. Continue to monitor. (6) Acute on chronic diastolic CHF (congestive heart failure) Is this a current diagnosis for this admission?: Yes Plan: Improved; Acute respiratory symptoms have resolved, lung sounds are improved. Patient is not edematous; however, did not develop significant edema during her last admission either (+1 to +2 pedal edema during ICU stay). Echocardigram revealed preserved LVEF with sever pulmonary hypertension. Have resumed her home dose Bumex therapy. She may require additional intravenous furosemide. Continue to monitor daily weights and strict I&Os. Continue home dose lisinopril and carvedilol. (7) Blood loss anemia Is this a current diagnosis for this admission?: Yes Plan: Chronic iron deficiency anemia complicated by acute blood loss anemia; Patient had bleeding with removal of the right femoral central line. Hgb 8.1->7.1; 9.0 s/p 1 unit PRBC only. Occult stool was positive last admission Will repeat occult stool. Will need to discuss with patient and brother (surrogate decision maker) recommendations for possible colonoscopy. Continue daily MVI and ferrous sulfate supplementation. Monitor daily CBC and transfuse for Hbg <8.0 (8) Hilar mass Is this a current diagnosis for this admission?: Yes Plan: Pulmonology was consulted last admission; patient to follow up in his office with brother late November to discuss risks/benefits of bronchoscopy. (9) Hypertension Qualifiers: Hypertension type: essential hypertension Qualified Code(s): I10 - Essential (primary) hypertension Is this a current diagnosis for this admission?: Yes Plan: Resume medications as noted. Same medication regimen as when she was discharged on Friday. Monitor blood pressure and adjust medications accordingly. - Time Time Spent with patient: 25-34 minutes Medications reviewed and adjusted accordingly: Yes Anticipated discharge: Other - Will need to discuss disposition w/ patient and brother. She may benefit from termite treater placement (JAIL); otherwise, home with [facility] w/ Hosp[facility]. Within: within 72 hours
[2018-11-04] MEDS: IPRATROPIUM BROMIDE 0.02% NEB 0.5 MG/2.5 ML AMPUL NEB SCH ×4 (02:12→20:45)
[2018-11-04] MEDS: LEVALBUTEROL HCL NEB 1.25 MG/3 ML AMPUL NEB SCH ×4 (02:12→20:45)
[2018-11-04] MEDS: HEPARIN SOD (PORCINE) 5,000 UNIT/ML 1 ML SYRINGE SUBCUT SCH ×3 (05:08→22:21)
[2018-11-04] MEDS: LEVOTHYROXINE SODIUM 0.025 MG TABLET PO SCH (05:10)
[2018-11-04] MEDS: PANTOPRAZOLE SODIUM 40 MG TABLET.DR PO SCH (05:10)
[2018-11-04 05:30] LABS: HEMATOCRIT 25.3 % (36.0-47.0); HEMOGLOBIN 8.6 g/dL (12.0-15.5); MEAN CORPUSCULAR HEMOGLOBIN 30.5 pg (27.0-33.4); MEAN CORPUSCULAR HGB CONC 33.9 g/dL (32.0-36.0); MEAN CORPUSCULAR VOLUME 90 fl (80-97); PLATELET COUNT 158 10^3/uL (150-450); RED BLOOD COUNT 2.81 10^6/uL (3.72-5.28); RED CELL DISTRIBUTION WIDTH 18.1 % (11.5-14.0); WHITE BLOOD COUNT 12.9 10^3/uL (4.0-10.5)
[2018-11-04 05:37] LABS: INTERNATIONAL RATION (INR) 1.07; PROTHROMBIN TIME 14.4 SEC (11.4-15.4)
[2018-11-04 05:49] LABS: ANION GAP 8 (5-19); BLOOD UREA NITROGEN 61 mg/dL (7-20); CALCIUM 8.7 mg/dL (8.4-10.2); CARBON DIOXIDE 27 mmol/L (22-30); CHLORIDE 104 mmol/L (98-107); GLUCOSE 161 mg/dL (75-110); POTASSIUM 4.3 mmol/L (3.6-5.0); SODIUM 138.5 mmol/L (137-145)
[2018-11-04 06:17] LABS: ABSOLUTE LYMPHOCYTES# (MANUAL) 0.4 10^3/uL (0.5-4.7); ABSOLUTE MONOCYTES # (MANUAL) 0.8 10^3/uL (0.1-1.4); ABSOLUTE NEUTROPHILS# (MANUAL) 11.7 10^3/uL (1.7-8.2); BAND NEUTROPHILS % (MANUAL) 2 % (3-5); BASOPHILS % (MANUAL) 0 % (0-2); EOSINOPHILS % (MANUAL) 0 % (0-6); LYMPHOCYTES % (MANUAL) 3 % (13-45); MONOCYTES % (MANUAL) 6 % (3-13); SEGMENTED NEUTROPHILS % (MAN) 89 % (42-78); TOTAL CELLS COUNTED 100
[2018-11-04 06:18] LABS: ANISOCYTOSIS 1+; HYPOCHROMASIA 1+; PLATELET COMMENT ADEQUATE; POLYCHROMASIA 1+; TOXIC VACUOLATION PRESENT
[2018-11-04] MEDS: INSULIN LISPRO 100 UNIT/ML 3 ML VIAL SUBCUT SCH ×4 (08:14→22:23)
[2018-11-04] MEDS: CARVEDILOL 12.5 MG TABLET PO SCH ×2 (11:37→22:21)
[2018-11-04] MEDS: GUAIFENESIN 600 MG TABLET.SA PO SCH ×2 (11:37→22:20)
[2018-11-04] MEDS: CALCIUM CARBONATE 500 MG TABLET PO SCH (11:38)
[2018-11-04] MEDS: DILTIAZEM HCL 240 MG CAPSULE.CR PO SCH (11:38)
[2018-11-04] MEDS: CHOLECALCIFEROL (D3) 1,000 UNIT TABLET PO SCH (11:38)
[2018-11-04] MEDS: CHOLECALCIFEROL (D3) 400 UNIT TABLET PO SCH (11:38)
[2018-11-04] MEDS: FLUTICASONE/VILANTEROL 100-25 MCG/DOSE IH SCH (11:39)
[2018-11-04] MEDS: FERROUS SULFATE 325 MG TABLET PO SCH (11:39)
[2018-11-04] MEDS: SERTRALINE HCL 50 MG TABLET PO SCH (11:39)
[2018-11-04] MEDS: PREDNISONE 5 MG TABLET PO SCH ×2 (11:39→20:18)
[2018-11-04] MEDS: LISINOPRIL 10 MG TABLET PO SCH (11:39)
[2018-11-04] MEDS: MULTIVITAMIN TABLET PO SCH (11:39)
[2018-11-04] MEDS: ASPIRIN 81 MG TABLET, ENT COATED PO SCH (11:39)
[2018-11-04] MEDS: ASCORBIC ACID 500 MG TABLET PO SCH (11:39)
[2018-11-04] MEDS: BUMETANIDE 1 MG TABLET PO SCH (11:40)
[2018-11-04] MEDS: TIOTROPIUM BROMIDE DPI 5 CAP/KIT (18 MCG/CAP) IH SCH (11:40)
[2018-11-04] MEDS: CYCLOSPORINE 0.05% OPH EMULSIO 0.4 ML DROPERETTE OU SCH ×2 (13:35→22:23)
--- NOTE | 2018-11-04 17:35 | PDOC PROGRESS REPORT ---
Subjective Progress Note for:: 11/04/18 Subjective:: The patient is an 78 y/o female with a PMH of CHF, Severe Pulmonary Hypertension, HTN, HLD, CAD, Lt hilar lung nodule, and PAF who was just discharged from our facility after admission for treatment of HAP (r/t recent SNF stay) and exacerbations of her chronic medical conditions. She was seen on afternoon rounds while a friend was visiting. Offered to call the patient's brother, Ken, but patient declined at this time. She was noted to be alert and oriented x4, though forgetful and with repetitive questions during our conversation. She appears to be somewhat overwhelmed by her numerous diagnoses and plan, but again declined calling her brother. She was encouraged to identify her surrogate decision-maker (previously identified as her brother during the last admission), unfortunately, the patient's friend interrupted and stated this that was not necessary at this time as the patient clearly could make her own decisions. We will need to revisit this again in the future when the patient is unaccompanied. She reports that she is feeling much better today with decreased dyspnea, orthopnea, and cough. She has no specific complaints today. She does admit that she does not feel that it will be safe for her to return to home as the 24-hour caregiver has acknowledged feeling overwhelmed by her health care needs. She is interested in SNF for short-term rehab with long-term transition at discharge. She is also agreeable to palliative care consultation but does clarify that while she is a DNR, she would wish to be intubated for 3-5 days as necessary, and would like to pursue any interventional diagnostic procedures necessary. Nursing has noted bright red blood streaked stools. Reason For Visit: RAPID ATRIAL FIBRILLATION Physical Exam Vital Signs: Temp Pulse Resp BP Pulse Ox 97.6 F 68 16 121/68 100 11/04/18 11:27 11/04/18 14:09 11/04/18 14:09 11/04/18 11:27 11/04/18 14:09 Intake & Output 11/03/18 11/04/18 11/05/18 06:59 06:59 06:59 Intake Total 240 2000 Balance 240 2000 Weight 76.1 kg 76.5 kg General appearance: PRESENT: no acute distress, cooperative, hard of hearing, we ll-developed, well-nourished Head exam: PRESENT: atraumatic, normocephalic Eye exam: PRESENT: conjunctiva pink, EOMI, PERRLA. ABSENT: scleral icterus Mouth exam: PRESENT: moist, tongue midline Neck exam: ABSENT: carotid bruit, JVD, lymphadenopathy, thyromegaly Respiratory exam: PRESENT: clear to auscultation kaylee, decreased breath sounds - bibasilar, symmetrical, unlabored. ABSENT: rales, rhonchi, wheezes Cardiovascular exam: PRESENT: irregular rhythm, +S1, +S2. ABSENT: diastolic murmur, rubs, systolic murmur Pulses: PRESENT: normal dorsalis pedis pul Vascular exam: PRESENT: normal capillary refill GI/Abdominal exam: PRESENT: normal bowel sounds, soft. ABSENT: distended, guarding, mass, organolmegaly, rebound, tenderness Rectal exam: PRESENT: deferred Extremities exam: PRESENT: full ROM. ABSENT: calf tenderness, clubbing, pedal edema Neurological exam: PRESENT: alert, awake, oriented to person, oriented to place, oriented to time, oriented to situation, CN II-XII grossly intact, other - Technically orientated; however, pleasantly confused and forgetful. ABSENT: motor sensory deficit Psychiatric exam: PRESENT: appropriate affect, normal mood. ABSENT: homicidal ideation, suicidal ideation Skin exam: PRESENT: dry, intact, warm. ABSENT: cyanosis, rash Results Laboratory Results: 11/04/18 05:01 11/04/18 05:01 11/03/18 11/04/18 11/04/18 17:40 05:01 05:01 WBC 14.9 H 12.9 H RBC 2.98 L 2.81 L Hgb 9.0 L 8.6 L Hct 27.2 L 25.3 L MCV 91 90 MCH 30.4 30.5 MCHC 33.3 33.9 RDW 17.3 H 18.1 H Plt Count 178 158 Seg Neutrophils % Not Reportable Not Reportable Lymphocytes % Not Reportable Not Reportable Monocytes % Not Reportable Not Reportable Eosinophils % Not Reportable Not Reportable Basophils % Not Reportable Not Reportable Absolute Neutrophils Not Reportable Not Reportable Absolute Lymphocytes Not Reportable Not Reportable Absolute Monocytes Not Reportable Not Reportable Absolute Eosinophils Not Reportable Not Reportable Absolute Basophils Not Reportable Not Reportable Sodium 138.5 Potassium 4.3 Chloride 104 Carbon Dioxide 27 Anion Gap 8 BUN 61 H Creatinine 1.63 H Est GFR ( Amer) 37 L Est GFR (Non-Af Amer) 30 L Glucose 161 H Calcium 8.7 Magnesium 2.3 11/02/18 11/03/18 15:45 04:43 Troponin I 0.075 NT-Pro-B Natriuret Pep 5760 H 6550 H Impressions: Chest X-Ray 11/02/18 15:31 IMPRESSION: NO ACUTE RADIOGRAPHIC FINDING IN THE CHEST. Venous Doppler Study 11/02/18 15:34 IMPRESSION: No DVT. Large right groin probable hematoma. Assessment and Plan - Diagnosis (1) Atrial fibrillation with rapid ventricular response Is this a current diagnosis for this admission?: Yes Plan: Now rate controlled; remains in afib. Secondary to medication noncompliance; reportedly did not receive her prescriptions at discharge. The patient is admitted to [facility] on continuous cardiac telemetry. During previous admission, she did require a diltizem drip. Fortunately, this admission, she quickly became rate controlled with resumption of p.o diltiazem. Continue Diltiazem 240 mg extended release and carvedilol 12.5 mg twice daily. Patient was discharged on chronic anticoagulation (Eliquis 2.5 mg BID); however, would advise against chronic anticoagulation in this patient as she is at high risk for severe bleeding event. HAS-BLED score 5 points; 9.1-12.5% yearly major bleed risk. CHADS-VASc score of 6 points which is approximately 9.7% stroke risk per year. (2) COPD exacerbation Is this a current diagnosis for this admission?: Yes Plan: Resolved; decreased dsypnea and cough today. Now off BiPAP and maintaining saturations while at rest on room air. Supplemental oxygen and BiPAP as needed. Scheduled nebulizer treatments. Continue Brio Ellipta and Spiriva Resume her chronic prednisione dose of 5 mg twice daily. Mucinex twice daily. (3) Chronic kidney disease, stage 3 Is this a current diagnosis for this admission?: Yes Plan: Cr 1.63 today; similar to last admission GFR and serum creatinine were better on admission than last week. Possibly related to having missed diuretic for 2 days. Continue home dose Bumex Will avoid nephrotoxic medications as able. Daily chemistries. (4) Diabetes mellitus type 2 in obese Is this a current diagnosis for this admission?: Yes Plan: A1C is 7.1% Consistent Carb/Cardiac diet. Serum glucose is elevated; possibly related to recent escalated steroid therapy. Patient is currently on Lantus; will watch glucose closely on her chronic prednisone dose, may be able to decrease dosing. A1C in patient of her age and expected lifespan is recommended to be <8.5%; decreased glucose control is allowed to prevent catestrophic hypoglycemic events. (5) Right leg swelling Is this a current diagnosis for this admission?: Yes Plan: Secondary to hematoma development from previous central line. She was on chronic anticoagulation because of the atrial fibrillation. The right leg is still slightly swollen however Doppler study revealed no deep venous thrombosis. It is likely all from hematoma. Continue to monitor. (6) Acute on chronic diastolic CHF (congestive heart failure) Is this a current diagnosis for this admission?: Yes Plan: Improved; Acute respiratory symptoms have resolved, lung sounds are improved. Patient is not edematous; however, did not develop significant edema during her last admission either (+1 to +2 pedal edema during ICU stay). Echocardigram revealed preserved LVEF with sever pulmonary hypertension. Have resumed her home dose Bumex therapy. She may require additional intravenous furosemide. Continue to monitor daily weights and strict I&Os. Continue home dose lisinopril and carvedilol. (7) Blood loss anemia Is this a current diagnosis for this admission?: Yes Plan: Chronic iron deficiency anemia complicated by acute blood loss anemia; Patient had bleeding with removal of the right femoral central line. Hgb 8.1->7.1; 9.0 s/p 1 unit PRBC only. Occult stool was positive last admission; nursing reports bright red blood streaked stools. Pt reports history of hemorrhoids. Will repeat occult stool; pending. Will need to discuss with patient and brother (surrogate decision maker) recommendations for possible colonoscopy. Continue daily MVI and ferrous sulfate supplementation. Monitor daily CBC and transfuse for Hbg <8.0 Consider GI/Surgical consultation to evaluate for colonoscopy; conversely, if hemoglobin remains stable, may consider discharging patient with GI follow-up. (8) Hilar mass Is this a current diagnosis for this admission?: Yes Plan: Pulmonology was consulted last admission; patient to follow up in his office with brother late May to discuss risks/benefits of bronchoscopy. (9) Hypertension Qualifiers: Hypertension type: essential hypertension Qualified Code(s): I10 - Essential (primary) hypertension Is this a current diagnosis for this admission?: Yes Plan: Resume medications as noted. Same medication regimen as when she was discharged on Friday. Monitor blood pressure and adjust medications accordingly. - Time Time Spent with patient: 35 or more minutes Medications reviewed and adjusted accordingly: Yes Anticipated discharge: SNF
[2018-11-04] MEDS: ATORVASTATIN CALCIUM 40 MG TABLET PO SCH (22:20)
[2018-11-04] MEDS: INSULIN GLARGINE,HUM.REC.ANLOG 1,000 UNIT/10 ML VIAL SUBCUT SCH (22:21)
[2018-11-05] MEDS: IPRATROPIUM BROMIDE 0.02% NEB 0.5 MG/2.5 ML AMPUL NEB SCH ×4 (01:56→20:22)
[2018-11-05] MEDS: LEVALBUTEROL HCL NEB 1.25 MG/3 ML AMPUL NEB SCH ×4 (01:56→20:23)
[2018-11-05] MEDS: HEPARIN SOD (PORCINE) 5,000 UNIT/ML 1 ML SYRINGE SUBCUT SCH ×3 (05:18→21:29)
[2018-11-05] MEDS: LEVOTHYROXINE SODIUM 0.025 MG TABLET PO SCH (05:18)
[2018-11-05] MEDS: PANTOPRAZOLE SODIUM 40 MG TABLET.DR PO SCH (05:18)
[2018-11-05 05:36] LABS: HEMATOCRIT 26.3 % (36.0-47.0); MEAN CORPUSCULAR HEMOGLOBIN 31.1 pg (27.0-33.4); MEAN CORPUSCULAR HGB CONC 34.2 g/dL (32.0-36.0); MEAN CORPUSCULAR VOLUME 91 fl (80-97); PLATELET COUNT 151 10^3/uL (150-450); RED BLOOD COUNT 2.89 10^6/uL (3.72-5.28); WHITE BLOOD COUNT 9.1 10^3/uL (4.0-10.5)
[2018-11-05 06:01] LABS: ANION GAP 9 (5-19); BLOOD UREA NITROGEN 64 mg/dL (7-20); CARBON DIOXIDE 26 mmol/L (22-30); CHLORIDE 106 mmol/L (98-107); GLUCOSE 122 mg/dL (75-110); POTASSIUM 4.7 mmol/L (3.6-5.0); SODIUM 140.6 mmol/L (137-145)
[2018-11-05 06:05] LABS: ABSOLUTE LYMPHOCYTES# (MANUAL) 0.6 10^3/uL (0.5-4.7); ABSOLUTE MONOCYTES # (MANUAL) 0.5 10^3/uL (0.1-1.4); BAND NEUTROPHILS % (MANUAL) 2 % (3-5); BASOPHILS % (MANUAL) 0 % (0-2); EOSINOPHILS % (MANUAL) 0 % (0-6); LYMPHOCYTES % (MANUAL) 7 % (13-45); MONOCYTES % (MANUAL) 5 % (3-13); SEGMENTED NEUTROPHILS % (MAN) 86 % (42-78); TOTAL CELLS COUNTED 100
[2018-11-05 06:06] LABS: ANISOCYTOSIS 2+; HYPOCHROMASIA 2+; PLATELET COMMENT ADEQUATE; POLYCHROMASIA 1+
[2018-11-05] MEDS: INSULIN LISPRO 100 UNIT/ML 3 ML VIAL SUBCUT SCH ×4 (09:19→21:34)
[2018-11-05] MEDS: BUMETANIDE 1 MG TABLET PO SCH (09:21)
[2018-11-05] MEDS: FLUTICASONE/VILANTEROL 100-25 MCG/DOSE IH SCH (09:21)
[2018-11-05] MEDS: CHOLECALCIFEROL (D3) 400 UNIT TABLET PO SCH (09:22)
[2018-11-05] MEDS: ASCORBIC ACID 500 MG TABLET PO SCH (09:22)
[2018-11-05] MEDS: LISINOPRIL 10 MG TABLET PO SCH (09:23)
[2018-11-05] MEDS: GUAIFENESIN 600 MG TABLET.SA PO SCH ×2 (09:23→21:34)
[2018-11-05] MEDS: MULTIVITAMIN TABLET PO SCH (09:23)
[2018-11-05] MEDS: CALCIUM CARBONATE 500 MG TABLET PO SCH (09:23)
[2018-11-05] MEDS: DILTIAZEM HCL 240 MG CAPSULE.CR PO SCH (09:24)
[2018-11-05] MEDS: SERTRALINE HCL 50 MG TABLET PO SCH (09:24)
[2018-11-05] MEDS: CHOLECALCIFEROL (D3) 1,000 UNIT TABLET PO SCH (09:24)
[2018-11-05] MEDS: CARVEDILOL 12.5 MG TABLET PO SCH ×2 (09:24→21:34)
[2018-11-05] MEDS: TIOTROPIUM BROMIDE DPI 5 CAP/KIT (18 MCG/CAP) IH SCH (09:24)
[2018-11-05] MEDS: PREDNISONE 5 MG TABLET PO SCH ×2 (09:24→17:40)
[2018-11-05] MEDS: FERROUS SULFATE 325 MG TABLET PO SCH (09:25)
[2018-11-05] MEDS: CYCLOSPORINE 0.05% OPH EMULSIO 0.4 ML DROPERETTE OU SCH ×2 (09:25→21:35)
[2018-11-05] MEDS: ASPIRIN 81 MG TABLET, ENT COATED PO SCH (09:32)
--- NOTE | 2018-11-05 20:24 | PDOC PROGRESS REPORT ---
Subjective Progress Note for:: 11/05/18 Subjective:: The patient is an 78 y/o female with a PMH of CHF, Severe Pulmonary Hypertension, HTN, HLD, CAD, Lt hilar lung nodule, and PAF who was just discharged from our facility after admission for treatment of HAP (r/t recent SNF stay) and exacerbations of her chronic medical conditions. She was seen on afternoon rounds while her brother, Ken Tate, was visiting. She was sitting up to the recliner comfortably on room air. She reports that she is feeling very well today; she is looking much better. She reports slight fatigue and generalized weakness but otherwise has no complaints. She denies fever, chills, chest pain, palpitations, dyspnea, orthopnea, abdominal pain, nausea vomiting and diarrhea. She has no new questions or concerns. No concerns per nursing. Reason For Visit: RAPID ATRIAL FIBRILLATION Physical Exam Vital Signs: Temp Pulse Resp BP Pulse Ox 98.0 F 67 16 98/42 L 100 11/05/18 16:45 11/05/18 16:45 11/05/18 16:45 11/05/18 16:45 11/05/18 16:45 Intake & Output 11/04/18 11/05/18 11/06/18 06:59 06:59 06:59 Intake Total 2000 801 948 Balance 2000 801 948 Weight 76.5 kg 75.6 kg General appearance: PRESENT: no acute distress, hard of hearing, obese, well- developed, well-nourished Head exam: PRESENT: atraumatic, normocephalic Eye exam: PRESENT: conjunctiva pink, EOMI, PERRLA. ABSENT: scleral icterus Ear exam: PRESENT: normal external ear exam Mouth exam: PRESENT: moist, tongue midline Neck exam: ABSENT: carotid bruit, JVD, lymphadenopathy, thyromegaly Respiratory exam: PRESENT: clear to auscultation kaylee, decreased breath sounds - Bibasilar, symmetrical, unlabored. ABSENT: rales, rhonchi, wheezes Cardiovascular exam: PRESENT: irregular rhythm, +S1, +S2. ABSENT: diastolic murmur, rubs, systolic murmur Pulses: PRESENT: normal dorsalis pedis pul Vascular exam: PRESENT: normal capillary refill GI/Abdominal exam: PRESENT: normal bowel sounds, soft. ABSENT: distended, guarding, mass, organolmegaly, rebound, tenderness Rectal exam: PRESENT: deferred Extremities exam: PRESENT: full ROM. ABSENT: calf tenderness, clubbing, pedal edema Neurological exam: PRESENT: alert, awake, oriented to person, oriented to place, oriented to time, oriented to situation, CN II-XII grossly intact, other - Forgetful. ABSENT: motor sensory deficit Psychiatric exam: PRESENT: appropriate affect, normal mood. ABSENT: homicidal ideation, suicidal ideation Skin exam: PRESENT: dry, intact, warm. ABSENT: cyanosis, rash Results Laboratory Results: 11/05/18 04:44 11/05/18 04:44 11/05/18 11/05/18 04:44 04:44 WBC 9.1 RBC 2.89 L Hgb 9.0 L Hct 26.3 L MCV 91 MCH 31.1 MCHC 34.2 RDW 18.0 H Plt Count 151 Seg Neutrophils % Not Reportable Lymphocytes % Not Reportable Monocytes % Not Reportable Eosinophils % Not Reportable Basophils % Not Reportable Absolute Neutrophils Not Reportable Absolute Lymphocytes Not Reportable Absolute Monocytes Not Reportable Absolute Eosinophils Not Reportable Absolute Basophils Not Reportable Sodium 140.6 Potassium 4.7 Chloride 106 Carbon Dioxide 26 Anion Gap 9 BUN 64 H Creatinine 1.44 H Est GFR ( Amer) 42 L Est GFR (Non-Af Amer) 35 L Glucose 122 H Calcium 9.0 Magnesium 2.2 11/02/18 11/03/18 15:45 04:43 Troponin I 0.075 NT-Pro-B Natriuret Pep 5760 H 6550 H Impressions: Chest X-Ray 11/02/18 15:31 IMPRESSION: NO ACUTE RADIOGRAPHIC FINDING IN THE CHEST. Venous Doppler Study 11/02/18 15:34 IMPRESSION: No DVT. Large right groin probable hematoma. Assessment and Plan - Diagnosis (1) Atrial fibrillation with rapid ventricular response Is this a current diagnosis for this admission?: Yes Plan: Now rate controlled; remains in afib. Secondary to medication noncompliance; reportedly did not receive her prescriptions at discharge. The patient is admitted to [facility] on continuous cardiac telemetry. During previous admission, she did require a diltizem drip. Fortunately, this admission, she quickly became rate controlled with resumption of p.o diltiazem. Continue Diltiazem 240 mg extended release and carvedilol 12.5 mg twice daily. Patient was discharged on chronic anticoagulation (Eliquis 2.5 mg BID); however, would advise against chronic anticoagulation in this patient as she is at high risk for severe bleeding event. HAS-BLED score 5 points; 9.1-12.5% yearly major bleed risk. CHADS-VASc score of 6 points which is approximately 9.7% stroke risk per year. (2) COPD exacerbation Is this a current diagnosis for this admission?: Yes Plan: Resolved; decreased dsypnea and cough today. Now off BiPAP and maintaining saturations while at rest on room air. Supplemental oxygen and BiPAP as needed. Scheduled nebulizer treatments; will decrease frequency today. Continue Brio Ellipta and Spiriva Continue her chronic prednisione dose of 5 mg twice daily. Mucinex twice daily. (3) Chronic kidney disease, stage 3 Is this a current diagnosis for this admission?: Yes Plan: Cr 1.44 today; similar to last admission GFR and serum creatinine were better on admission than last week. Possibly related to having missed diuretic for 2 days. Continue home dose Bumex Will avoid nephrotoxic medications as able. Daily chemistries. (4) Diabetes mellitus type 2 in obese Is this a current diagnosis for this admission?: Yes Plan: A1C is 7.1% Consistent Carb/Cardiac diet. Serum glucose is elevated; possibly related to recent escalated steroid therapy. Patient is currently on Lantus; will decrease dose slightly today (24->20). A1C in patient of her age and expected lifespan is recommended to be <8.5%; decreased glucose control is allowed to prevent catestrophic hypoglycemic ev ents. (5) Right leg swelling Is this a current diagnosis for this admission?: Yes Plan: Improved. Secondary to hematoma development from previous central line. She was on chronic anticoagulation because of the atrial fibrillation. The right leg is still slightly swollen however Doppler study revealed no deep venous thrombosis. It is likely all from hematoma. Continue to monitor. (6) Acute on chronic diastolic CHF (congestive heart failure) Is this a current diagnosis for this admission?: Yes Plan: Improved; Acute exacerbations have resolved. Patient is now asymptomatic, lung sounds are improved. Patient is not edematous; however, did not develop significant edema during her last admission either (+1 to +2 pedal edema during ICU stay). Echocardigram revealed preserved LVEF with sever pulmonary hypertension. Have resumed her home dose Bumex therapy. She may require additional intravenous furosemide. Continue to monitor daily weights and strict I&Os. Continue home dose lisinopril and carvedilol. (7) Blood loss anemia Is this a current diagnosis for this admission?: Yes Plan: Chronic iron deficiency anemia complicated by acute blood loss anemia; Patient had bleeding with removal of the right femoral central line. Hgb 8.1->7.1; 9.0 s/p 1 unit PRBC only. Hgb remains stable. Occult stool was positive last admission; nursing reports bright red blood streaked stools. Pt reports history of hemorrhoids. Will repeat occult stool; pending. Will need to discuss with patient and brother (surrogate decision maker) recommendations for possible colonoscopy. Continue daily MVI and ferrous sulfate supplementation. Monitor daily CBC and transfuse for Hbg <8.0 Hemoglobin remains stable, les concern for active GI bleed (blood likely r/t hemorrhoids); recommend outpatient GI follow-up to discuss possible colonoscopy. (8) Hilar mass Is this a current diagnosis for this admission?: Yes Plan: Pulmonology was consulted last admission; patient to follow up in his office with brother late November to discuss risks/benefits of bronchoscopy. (9) Hypertension Qualifiers: Hypertension type: essential hypertension Qualified Code(s): I10 - Essential (primary) hypertension Is this a current diagnosis for this admission?: Yes Plan: Resume medications as noted. Same medication regimen as when she was discharged on Friday. Monitor blood pressure and adjust medications accordingly. - Time Time Spent with patient: 25-34 minutes Medications reviewed and adjusted accordingly: Yes Anticipated discharge: SNF Within: when bed available
[2018-11-05] MEDS: ATORVASTATIN CALCIUM 40 MG TABLET PO SCH (21:34)
[2018-11-05] MEDS ORDERED: INSULIN GLARGINE,HUM.REC.ANLOG 1,000 UNIT/10 ML VIAL SUBCUT SCH (22:00)
[2018-11-06] MEDS: IPRATROPIUM BROMIDE 0.02% NEB 0.5 MG/2.5 ML AMPUL NEB SCH ×2 (00:08→08:11)
[2018-11-06] MEDS: LEVALBUTEROL HCL NEB 1.25 MG/3 ML AMPUL NEB SCH ×2 (00:08→08:11)
[2018-11-06 04:59] LABS: HEMATOCRIT 26.9 % (36.0-47.0); HEMOGLOBIN 9.4 g/dL (12.0-15.5); MEAN CORPUSCULAR HEMOGLOBIN 31.4 pg (27.0-33.4); MEAN CORPUSCULAR HGB CONC 34.9 g/dL (32.0-36.0); MEAN CORPUSCULAR VOLUME 90 fl (80-97); PLATELET COUNT 151 10^3/uL (150-450); RED BLOOD COUNT 2.99 10^6/uL (3.72-5.28); RED CELL DISTRIBUTION WIDTH 18.2 % (11.5-14.0); WHITE BLOOD COUNT 8.2 10^3/uL (4.0-10.5)
[2018-11-06 05:23] LABS: BLOOD UREA NITROGEN 70 mg/dL (7-20); CALCIUM 9.4 mg/dL (8.4-10.2); CARBON DIOXIDE 26 mmol/L (22-30); GLUCOSE 141 mg/dL (75-110); POTASSIUM 4.5 mmol/L (3.6-5.0); SODIUM 140.4 mmol/L (137-145)
[2018-11-06 05:25] LABS: ANION GAP 8 (5-19); CHLORIDE 106 mmol/L (98-107)
[2018-11-06] MEDS: LEVOTHYROXINE SODIUM 0.025 MG TABLET PO SCH (06:17)
[2018-11-06] MEDS: PANTOPRAZOLE SODIUM 40 MG TABLET.DR PO SCH (06:17)
[2018-11-06] MEDS: HEPARIN SOD (PORCINE) 5,000 UNIT/ML 1 ML SYRINGE SUBCUT SCH ×2 (06:18→13:28)
[2018-11-06] MEDS: FLUTICASONE/VILANTEROL 100-25 MCG/DOSE IH SCH (09:46)
[2018-11-06] MEDS: INSULIN LISPRO 100 UNIT/ML 3 ML VIAL SUBCUT SCH ×2 (09:46→12:13)
[2018-11-06] MEDS: BUMETANIDE 1 MG TABLET PO SCH (09:47)
[2018-11-06] MEDS: CYCLOSPORINE 0.05% OPH EMULSIO 0.4 ML DROPERETTE OU SCH (09:47)
[2018-11-06] MEDS: TIOTROPIUM BROMIDE DPI 5 CAP/KIT (18 MCG/CAP) IH SCH (09:47)
[2018-11-06] MEDS: CARVEDILOL 12.5 MG TABLET PO SCH (09:47)
[2018-11-06] MEDS: CHOLECALCIFEROL (D3) 400 UNIT TABLET PO SCH (09:47)
[2018-11-06] MEDS: PREDNISONE 5 MG TABLET PO SCH (09:48)
[2018-11-06] MEDS: CALCIUM CARBONATE 500 MG TABLET PO SCH (09:48)
[2018-11-06] MEDS: CHOLECALCIFEROL (D3) 1,000 UNIT TABLET PO SCH (09:48)
[2018-11-06] MEDS: ASCORBIC ACID 500 MG TABLET PO SCH (09:48)
[2018-11-06] MEDS: SERTRALINE HCL 50 MG TABLET PO SCH (09:48)
[2018-11-06] MEDS: FERROUS SULFATE 325 MG TABLET PO SCH (09:48)
[2018-11-06] MEDS: DILTIAZEM HCL 240 MG CAPSULE.CR PO SCH (09:48)
[2018-11-06] MEDS: MULTIVITAMIN TABLET PO SCH (09:48)
[2018-11-06] MEDS: GUAIFENESIN 600 MG TABLET.SA PO SCH (09:48)
[2018-11-06] MEDS: LISINOPRIL 10 MG TABLET PO SCH (09:48)
[2018-11-06] MEDS: ASPIRIN 81 MG TABLET, ENT COATED PO SCH (09:48)
[2018-11-06 12:02] VITALS: BP 138/75
--- NOTE | 2018-11-06 14:20 | PDOC TRANSFER SUMMARY ---
General - Admit/Disc Date/PCP Admission Date/Primary Care Provider: 11/02/18 17:37 GERSON MAY Discharge Date: 11/06/18 - Discharge Diagnosis (1) Atrial fibrillation with rapid ventricular response Is this a current diagnosis for this admission?: Yes Summary: Now rate controlled; remains in afib. Secondary to medication noncompliance; reportedly did not receive her prescriptions at discharge. The patient was admitted to [facility] on continuous cardiac telemetry. During previous admission, she did require a diltizem drip. Fortunately, this admission, she quickly became rate controlled with resumption of p.o diltiazem. Recommend continuing Diltiazem 240 mg extended release and carvedilol 12.5 mg twice daily. Recommend follow-up appointment with Dr. Kaplan within 4 weeks. Patient was previously discharged on chronic anticoagulation (Eliquis 2.5 mg BID); however, would advise against chronic anticoagulation in this patient as she is at high risk for severe bleeding event (subsequently developed large hematoma and ecchymosis to her central line site and has history of GI bleed). HAS-BLED score 5 points; 9.1-12.5% yearly major bleed risk. CHADS-VASc score of 6 points which is approximately 9.7% stroke risk per year. (2) COPD exacerbation Is this a current diagnosis for this admission?: Yes Summary: Resolved; now off BiPAP and maintaining saturations while at rest on room air. Continue Brio Ellipta and Spiriva Continue her chronic prednisione dose of 5 mg twice daily. Continue as needed nebulizer treatments. (3) Chronic kidney disease, stage 3 Is this a current diagnosis for this admission?: Yes Summary: Cr 1.48 today; at baseline. Recommend routine monitoring. (4) Diabetes mellitus type 2 in obese Is this a current diagnosis for this admission?: Yes Summary: A1C is 7.1% Consistent Carb/Cardiac diet. Patient is currently on Lantus; dose was decreased slightly (24 units qHS -> 20 units qHS) with continued acceptable blood sugars. A1C in patient of her age and expected lifespan is recommended to be <8.5%; decreased glucose control is allowed to prevent catestrophic hypoglycemic events. Recommend continued attempts to minimize insulin dosing. (5) Right leg swelling Is this a current diagnosis for this admission?: Yes Summary: Improved. Secondary to hematoma development from previous central line. She was on chronic anticoagulation because of the atrial fibrillation. The right leg is still slightly swollen however Doppler study revealed no deep venous thrombosis. It is likely all from hematoma. Advised to consider continuing chronic anticoagulation. Continue to monitor; supportive care, non-pharmacological measures for comfort (heat, elevation). (6) Acute on chronic diastolic CHF (congestive heart failure) Is this a current diagnosis for this admission?: Yes Summary: Improved; Acute exacerbations have resolved. Patient is now asymptomatic, lung sounds are improved. Echocardigram revealed preserved LVEF with severe pulmonary hypertension. Continue Bumex therapy, lisinopril and carvedilol. Recommend she continue to monitor daily weights. Follow up with Dr. Kaplan within 1 month. (7) Blood loss anemia Is this a current diagnosis for this admission?: Yes Summary: Improving; hemoglobin is trending up; 9.4 today. Chronic iron deficiency anemia complicated by acute blood loss anemia; Patient had bleeding with removal of the right femoral central line. Hgb 8.1->7.1; 9.0 s/p 1 unit PRBC only. Hgb remains stable. Occult stool was positive last admission; nursing reports bright red blood streaked stools. Pt reports history of hemorrhoids; does have remote hx of GI bleed. Recommend she continue daily MVI and ferrous sulfate supplementation. Recommend outpatient GI follow-up to discuss possible colonoscopy. (8) Hilar mass Is this a current diagnosis for this admission?: Yes Summary: Pulmonology was consulted last admission; patient to follow up at Dr. Loco's office with brother late November to discuss risks/benefits of bronchoscopy. (9) Hypertension Is this a current diagnosis for this admission?: Yes Summary: Patient is normotensive; continue antihypertensive as described above. - Additional Information Resuscitation Status: Do Not Resuscitate Discharge Diet: Cardiac, Diabetic Discharge Activity: Activity As Tolerated, Balance Activity w/Rest, Weigh Daily Prescriptions: Carvedilol [Coreg 12.5 mg Tablet] 12.5 mg PO Q12 #60 tablet Diltiazem HCl [Cardizem Cd 240 mg Capsule.cr] 240 mg PO DAILY #30 capsule.cr Fluticasone/Vilanterol [Breo 100-25 Mcg Ellipta 14 Dose/Dpi] 1 inh IH DAILY #1 inhaler Insulin Glargine,Hum.rec.anlog [Lantus Insulin 100 Unit/1 ml 10 ml] 20 unit SUBCUT QHS #1 vial Insulin Lispro [Humalog Insulin (Lispro) 100 unit/mL] 0 - 12 unit SUBCUT ACHS #1 vial Tiotropium [place] [Spiriva Handihaler 5 Cap/Kit (18 Mcg/Cap)] 1 cap IH DAILY #1 kit Home Medications: Apremilast [Otezla] 30 mg PO Q12 10/19/18 Ascorbic Acid [Vitamin C 500 mg Tablet] 500 mg PO DAILY 10/19/18 Aspirin [Ecotrin 81 mg EC Tablet] 81 mg PO DAILY 10/19/18 Atorvastatin Calcium [Lipitor 40 mg Tablet] 40 mg PO QHS 10/19/18 Bumetanide [Bumex 2 mg Tablet] 2 mg PO DAILY 10/19/18 Calcium Carbonate/Vitamin D3 [Calcium 600 + Vit D 400 Tablet] 2 tab PO DAILY 10/19/18 Cholecalciferol (Vitamin D3) [Vitamin D3 1000 Unit Tablet] 1,000 unit PO DAILY 10/19/18 Ferrous Sulfate [Feosol 325 mg Tablet] 325 mg PO DAILY 10/19/18 Levothyroxine Sodium [Synthroid 0.025 mg Tablet] 0.025 mg PO Q6AM 10/19/18 Lisinopril [Prinivil] 20 mg PO DAILY 10/19/18 Pantoprazole Sodium [Protonix [address] Tablet] 40 mg PO Q6AM 10/19/18 Prednisone [Deltasone 5 mg Tablet] 5 mg PO BID 10/19/18 Sertraline HCl [Zoloft 50 mg Tablet] 50 mg PO DAILY 10/19/18 Vit A/Vit C/Vit E/Zinc/Copper [Preservision Areds Softgel] 2 cap PO DAILY 10/19/18 Acetaminophen [Tylenol 325 mg Tablet] 650 mg PO Q4HP PRN tablet 11/06/18 Carvedilol [Coreg 12.5 mg Tablet] 12.5 mg PO Q12 #60 tablet 11/06/18 Cyclosporine 0.05% Oph Emulsio [Restasis 0.05% Oph Emulsion Pf 0.4 ml] 1 drop OU Q12 droperette 11/06/18 Diltiazem HCl [Cardizem Cd 240 mg Capsule.cr] 240 mg PO DAILY #30 capsule.cr 11/06/18 Fluticasone/Vilanterol [Breo 100-25 Mcg Ellipta 14 Dose/Dpi] 1 inh IH DAILY #1 inhaler 11/06/18 Insulin Glargine,Hum.rec.anlog [Lantus Insulin 100 Unit/1 ml 10 ml] 20 unit SUBCUT QHS #1 vial 11/06/18 Insulin Lispro [Humalog Insulin (Lispro) 100 unit/mL] 0 - 12 unit SUBCUT ACHS #1 vial 11/06/18 Multivitamin [Tab-A-Deana (Multiple Vitamin) Tablet] 1 tab PO DAILY tablet 11/06/18 Tiotropium [place] [Spiriva Handihaler 5 Cap/Kit (18 Mcg/Cap)] 1 cap IH DAILY #1 kit 11/06/18 History of Present Illness Admission Date/PCP: 11/02/18 17:37 GERSON MAY History of Present Illness: PREETI ELIZABETH is a 78 year old female Hospital Course Hospital Course: Per H&P by Dr. Gonzalez: PREETI ELIZABETH is a 78 year old female who I discharged on Friday. Unfortunately the patient was not given the hard copies of her pre scriptions according to the patient and her caregiver. Therefore from Friday afternoon through today she did not take any medications and subsequently decompensated. She was quite stable at the time of discharge. She had increasing shortness of breath and tachycardia. She also has a cough productive of yellow sputum. Physical Exam Vital Signs: Temp Pulse Resp BP Pulse Ox 98.0 F 118 H 18 138/75 H 97 11/06/18 11:09 11/06/18 11:09 11/06/18 11:09 11/06/18 11:09 11/06/18 11:09 Intake & Output 11/05/18 11/06/18 11/07/18 06:59 06:59 06:59 Intake Total 801 948 354 Balance 801 948 354 Weight 75.6 kg 75.6 kg General appearance: PRESENT: no acute distress, cooperative, hard of hearing, obese, well-developed, well-nourished Head exam: PRESENT: atraumatic, normocephalic Eye exam: PRESENT: conjunctiva pink, EOMI, PERRLA. ABSENT: scleral icterus Ear exam: PRESENT: normal external ear exam Mouth exam: PRESENT: moist, tongue midline Neck exam: ABSENT: carotid bruit, JVD, lymphadenopathy, thyromegaly Respiratory exam: PRESENT: clear to auscultation kaylee, decreased breath sounds - Bibasilar, symmetrical, unlabored, other - Room air. ABSENT: rales, rhonchi, wheezes Cardiovascular exam: PRESENT: irregular rhythm, +S1, +S2. ABSENT: diastolic murmur, rubs, systolic murmur Pulses: PRESENT: normal dorsalis pedis pul Vascular exam: PRESENT: normal capillary refill GI/Abdominal exam: PRESENT: normal bowel sounds, soft. ABSENT: distended, guarding, mass, organolmegaly, rebound, tenderness Rectal exam: PRESENT: deferred Extremities exam: PRESENT: full ROM, pedal edema - Trace pedal edema bilaterally. ABSENT: calf tenderness, clubbing Neurological exam: PRESENT: alert, awake, oriented to person, oriented to place, oriented to time, oriented to situation, CN II-XII grossly intact, other - Forgetful; intermittently pleasantly confused. ABSENT: motor sensory deficit Psychiatric exam: PRESENT: appropriate affect, normal mood. ABSENT: homicidal ideation, suicidal ideation Skin exam: PRESENT: dry, intact, warm, other - Hematoma and large area of ecchymosis to the right femoral access, anterior, medial, posterior thigh from previous central line.. ABSENT: cyanosis, rash Results Laboratory Results: 11/06/18 04:22 11/06/18 04:22 11/06/18 11/06/18 04:22 04:22 WBC 8.2 RBC 2.99 L Hgb 9.4 L Hct 26.9 L MCV 90 MCH 31.4 MCHC 34.9 RDW 18.2 H Plt Count 151 Sodium 140.4 Potassium 4.5 Chloride 106 Carbon Dioxide 26 Anion Gap 8 BUN 70 H Creatinine 1.48 H Est GFR ( Amer) 41 L Est GFR (Non-Af Amer) 34 L Glucose 141 H Calcium 9.4 11/02/18 11/03/18 15:45 04:43 Troponin I 0.075 NT-Pro-B Natriuret Pep 5760 H 6550 H Impressions: Chest X-Ray 11/02/18 15:31 IMPRESSION: NO ACUTE RADIOGRAPHIC FINDING IN THE CHEST. Venous Doppler Study 11/02/18 15:34 IMPRESSION: No DVT. Large right groin probable hematoma. Transfer Plan - Disposition Transfer Plan: Transfer to [facility]. - Time Spent with Patient Time spent with patient: Greater than 30 Minutes Qualifiers - * PATIENT BEING DISCHARGED WITH ANY OF THE FOLLOWING DIAGNOSIS: Heart Failure HF Pt being discharged on ACEI for LVEF less than 40%?: Yes HF Pt being discharged on ARBS for LVEF less than 40%?: No Reason(s) for not prescribing ARBS:: Not indicated - On lisinopril HF Pt with Afib discharged with Warfarin?: No Reason(s) for not prescribing Warfarin:: Medical Contraindication - Risk of GI bleed HF Pt discharged on evidence-based Beta [place]:: Yes Plan Discharge Plan: Discharge to [facility] for short-term rehabilitation. Follow-up with primary care provider within 1 week. Follow-up with Dr. Loco as scheduled in late November; Dr. Loco would appreciate if the patient's brother, Ken Elizabeth, accompanied her to this appointment. Follow-up with Dr. Kaplan within 1 month. Follow-up with Dr. Ramirez within 4-6 weeks. Return to the emergency department as needed for concerning symptoms. Time Spent: Greater than 30 Minutes
== END 2018-11-06 15:09 | DRG 308 ==
LOC: ER 15:18 → EH 17:37 → 3W 11-03 00:11
PROVIDERS: ADMIT Hospitalist; ATTEND Hospitalist
PROC: 30233N1 Transfusion of Nonautologous Red Blood Cells into Peripheral Vein, Percutaneous Approach (ICD-10-PCS; principal; 2018-11-03)
DX: I48.91 Unspecified atrial fibrillation (principal); J96.01 Acute respiratory failure with hypoxia; I50.33 Acute on chronic diastolic (congestive) heart failure; J44.1 Chronic obstructive pulmonary disease with (acute) exacerbation; I13.0 Hypertensive heart and chronic kidney disease with heart failure and stage 1 through stage 4 chronic kidney disease, or unspecified chronic kidney disease; D62 Acute posthemorrhagic anemia; N18.3 Chronic kidney disease, stage 3 (moderate); E11.22 Type 2 diabetes mellitus with diabetic chronic kidney disease; I25.10 Atherosclerotic heart disease of native coronary artery without angina pectoris; I27.20 Pulmonary hypertension, unspecified; K21.9 Gastro-esophageal reflux disease without esophagitis; D64.9 Anemia, unspecified; M79.89 Other specified soft tissue disorders; R91.8 Other nonspecific abnormal finding of lung field; Z66 Do not resuscitate; Z95.5 Presence of coronary angioplasty implant and graft; Z79.82 Long term (current) use of aspirin; Z79.51 Long term (current) use of inhaled steroids; Z79.52 Long term (current) use of systemic steroids; Z79.899 Other long term (current) drug therapy; Z91.14 Patient's other noncompliance with medication regimen
CPT/HCPCS: 36415; 36430; 36600; 71045; 80048; 80053; 80061; 82803; 82962; 83036; 83735; 83880; 84439; 84443; 84481; 84484; 85025; 85027; 85610; 85730; 86850; 86900; 86901; 86920; 93005; 93010; 93971; 94640; 94660; 96365; 96368; 96376; 99291; J1644; J1815; J3475; J3490; J7512; J7620; P9016

== ENCOUNTER 2018-11-27 11:33 | Inpatient (IN) | payer MEDICARE, MEDICAID ==
--- NOTE | 2018-11-27 12:38 | ER Document Report ---
ED GI/ - General Chief Complaint: Abdominal Pain Stated Complaint: ABDOMINAL PAIN Time Seen by Provider: 11/27/18 12:24 Notes: Patient is complaining of abdominal pains. She also has abdominal swelling. Patient was just in this hospital for 1 week stay for lower GI bleeding. She was discharged on Friday. While in here, she had a colonoscopy done which the daughter says showed some mild diverticulitis, but the actual report says the patient had extensive diverticulosis. No blood or bleeding. A single polyp was removed at that time. Patient's daughter says that she began to note the patient's abdomen swelling yesterday afternoon and today it is a lot worse and she is having severe pains all over her abdomen. They have not noted any gross rectal bleeding, as far as the daughter knows. Patient also has a history of atrial fibrillation and while in the hospital, she did have tachycardia. There is discussion in the medical record of stopping the patient's anticoagulation, but the daughter and patient do not know if that has been done. Also has a history of anemia, CHF, COPD, diabetes, hypertension TRAVEL OUTSIDE OF THE [place] IN LAST 30 DAYS: No - Related Data Allergies/Adverse Reactions: methotrexate [Methotrexate] Allergy (Verified 11/27/18 11:52) Penicillins Allergy (Verified 11/27/18 11:52) Past Medical History - Social History Smoking Status: Never Smoker Frequency of alcohol use: None Drug Abuse: None Family History: CAD Patient has suicidal ideation: No Patient has homicidal ideation: No - Past Medical History Cardiac Medical History: Reports: Hx Atrial Fibrillation, Hx Congestive Heart Failure, Hx Coronary Artery Disease - With 2 stents in the past, Hx Hypercholesterolemia, Hx Hypertension Pulmonary Medical History: Reports: Hx COPD, Hx Pneumonia, Hx Respiratory Fail ure Denies: Hx Tuberculosis Neurological Medical History: Denies: Hx Migraine, Hx Seizures Endocrine Medical History: Reports: Hx Diabetes Mellitus Type 2 Renal/ Medical History: Denies: Hx End Stage Renal Disease, Hx Peritoneal Dialysis GI Medical History: Reports: Hx Gastroesophageal Reflux Disease Musculoskeletal Medical History: Reports Hx Arthritis Skin Medical History: Reports Hx Psoriasis Psychiatric Medical History: Reports: Hx Depression Denies: Hx Bipolar Disorder Past Surgical History: Reports: Hx Cardiac Catheterization, Hx Herniorrhaphy, Hx Hysterectomy. Denies: Hx Pacemaker - Immunizations Immunizations up to date: Yes Hx Diphtheria, Pertussis, Tetanus Vaccination: Yes Review of Systems - Review of Systems Notes: REVIEW OF SYSTEMS: CONSTITUTIONAL : Denies fever. EENT: Denies eye, ear, nose or mouth or throat pain or other symptoms. CARDIOVASCULAR: Denies chest pain. RESPIRATORY: Denies cough, chest congestion, or shortness of breath. GASTROINTESTINAL: See HPI. GENITOURINARY: Denies difficulty or painful urinating, urinary frequency, blood in urine. MUSCULOSKELETAL: Denies back or neck pain. Denies joint pain or swelling. SKIN: Denies rash or skin lesions. NEUROLOGICAL: Denies LOC or altered mental status. Denies headache. Denies sensory loss or motor deficits. ALL OTHER SYSTEMS REVIEWED AND NEGATIVE. Physical Exam - Vital signs Vitals: Temp Pulse Resp BP Pulse Ox 97.6 F 92 18 154/81 H 95 11/27/18 11:42 11/27/18 11:42 11/27/18 11:42 11/27/18 11:42 11/27/18 11:42 Interpretation: Normal, Tachycardic - Heart rate goes between 90 and 120. Atrial fibrillation.. No: Hypoxic Notes: PHYSICAL EXAMINATION: GENERAL: Very anxious and rubbing her stomach. Abdomen appears to be distended. Vital signs were all normal except for a slight tachycardia with an irr egularly irregular rate. HEAD: Atraumatic, normocephalic. EYES: Pupils equal round and reactive to light, extraocular movements intact. ENT: oropharynx clear without exudates. Moist mucous membranes. NECK: Normal range of motion, supple. LUNGS: Breath sounds decreased bilaterally, no wheezes heard. HEART: Irregularly irregular rate and rhythm without murmurs. ABDOMEN: Distended appearing. Percusses to fluid density of the lower half of the abdomen when patient is sitting at 45 degrees. Rectal exam had yellowish colored stool on the glove, but it was positive on bedside guaiac testing for occult blood. No blood seen perirectal or on the examining glove. Tender but no guarding or rebound. BACK: No tenderness throughout entire back. EXTREMITIES: Normal range of motion without pain. +1 pitting edema both shins. No evidence of DVT. Negative Homans bilaterally. NEUROLOGICAL: Normal speech. Mostly normal sensory, motor, and reflex exams. Awake, alert, and oriented x3. PSYCH: Normal mood, normal affect. SKIN: Warm, dry, no rashes. Course - Re-evaluation Re-evalutation: 11/27/18 15:14 Patient discussed with hospitalist who will admit the patient. - Vital Signs Vital signs: Temp Pulse Resp BP Pulse Ox 97.6 F 92 18 157/73 H 94 11/27/18 11:42 11/27/18 11:42 11/27/18 16:31 11/27/18 16:31 11/27/18 16:31 - Laboratory Result Diagrams: 11/27/18 11:52 11/27/18 11:52 Laboratory results interpreted by me: 11/27/18 11/27/18 11/27/18 11:52 11:52 14:15 RBC 2.80 L Hgb 8.5 L Hct 25.6 L RDW 17.8 H Seg Neuts % (Manual) 83 H Band Neutrophils % 2 L Lymphocytes % (Manual) 11 L Monocytes % (Manual) 1 L Metamyelocytes % 1 H Abs Neuts (Manual) 8.4 H Chloride 110 H BUN 35 H Est GFR ( Amer) 50 L Est GFR (Non-Af Amer) 42 L Glucose 111 H Total Protein 5.5 L Albumin 2.7 L Lipase 304.2 H Urine Protein 100 H Urine Ascorbic Acid 40 H - Diagnostic Test Radiology reviewed: Image reviewed, Reports reviewed - CT scan of the abdomen and pelvis shows ascites, right pleural effusion, and anasarca. Radiology results interpreted by me: 11/27/18 15:16 Chest x-ray shows cardiomegaly. - EKG Interpretation by Me Rate: Tachycardia Rhythm: A.Fib Critical Care Note - Critical Care Note Total time excluding time spent on procedures (mins): 35 Discharge - Discharge Clinical Impression: Pleural effusion, Atrial fibrillation Ascites Qualifiers: Ascites type: other type Qualified Code(s): R18.8 - Other ascites Condition: Poor Disposition: ADMITTED INPATIENT Admitting Provider: Carlos (Hospitalist) Unit Admitted: [facility]
[2018-11-27] MEDS ORDERED: MORPHINE SULFATE 10 MG/ML INJ IV ONE (12:41)
[2018-11-27 12:57] LABS: HEMATOCRIT 25.6 % (36.0-47.0); HEMOGLOBIN 8.5 g/dL (12.0-15.5); MEAN CORPUSCULAR HEMOGLOBIN 30.4 pg (27.0-33.4); MEAN CORPUSCULAR HGB CONC 33.3 g/dL (32.0-36.0); MEAN CORPUSCULAR VOLUME 91 fl (80-97); PLATELET COUNT 289 10^3/uL (150-450); RED CELL DISTRIBUTION WIDTH 17.8 % (11.5-14.0); WHITE BLOOD COUNT 9.8 10^3/uL (4.0-10.5)
[2018-11-27 13:04] LABS: ALANINE AMINOTRANSFERASE 20 U/L (9-52); ALBUMIN 2.7 g/dL (3.5-5.0); ALKALINE PHOSPHATASE 81 U/L (38-126); ANION GAP 8 (5-19); ASPARTATE AMINO TRANSFERASE 22 U/L (14-36); BILIRUBIN,DIRECT 0.4 mg/dL (0.0-0.4); BILIRUBIN,TOTAL 0.5 mg/dL (0.2-1.3); BLOOD UREA NITROGEN 35 mg/dL (7-20); CALCIUM 8.6 mg/dL (8.4-10.2); CARBON DIOXIDE 25 mmol/L (22-30); CHLORIDE 110 mmol/L (98-107); GLUCOSE 111 mg/dL (75-110); LIPASE 304.2 U/L (23-300); POTASSIUM 4.2 mmol/L (3.6-5.0); SODIUM 143.2 mmol/L (137-145); TOTAL PROTEIN 5.5 g/dL (6.3-8.2)
[2018-11-27 13:20] LABS: ABSOLUTE LYMPHOCYTES# (MANUAL) 1.3 10^3/uL (0.5-4.7); ABSOLUTE MONOCYTES # (MANUAL) 0.1 10^3/uL (0.1-1.4); ABSOLUTE NEUTROPHILS# (MANUAL) 8.4 10^3/uL (1.7-8.2); BAND NEUTROPHILS % (MANUAL) 2 % (3-5); BASOPHILS % (MANUAL) 0 % (0-2); EOSINOPHILS % (MANUAL) 0 % (0-6); LYMPHOCYTES % (MANUAL) 11 % (13-45); METAMYELOCYTES % (MANUAL) 1 % (0); MONOCYTES % (MANUAL) 1 % (3-13); NUCLEATED RED BLOOD CELLS 1 /100 WBC (0); SEGMENTED NEUTROPHILS % (MAN) 83 % (42-78); TOTAL CELLS COUNTED 100
[2018-11-27 13:25] LABS: ANISOCYTOSIS 1+; POLYCHROMASIA SLIGHT
[2018-11-27 13:26] LABS: OVALOCYTES SLIGHT; PLATELET COMMENT ADEQUATE; POIKILOCYTOSIS SLIGHT; SCHISTOCYTES SLIGHT
--- NOTE | 2018-11-27 14:27 | RADIOLOGY REPORT (SQ) ---
EXAM DESCRIPTION: CT ABD/PELVIS NO ORAL OR IV COMPLETED DATE/TIME: 11/27/2018 2:07 pm REASON FOR STUDY: Distended abdomen, abdominal pain, Hx diverticulos COMPARISON: 11/20/2018 TECHNIQUE: CT scan of the abdomen and pelvis performed without intravenous or oral contrast. Images reviewed with lung, soft tissue, and bone windows. Reconstructed coronal and sagittal MPR images revi ewed. All images stored on PACS. All CT scanners at this facility use dose modulation, iterative reconstruction, and/or weight based d osing when appropriate to reduce radiation dose to as low as reasonably achievable (ALARA). [facility]: Dose Right [facility]: CareDose [facility]: Dose Right [facility]: Teradose 4D [facility]: Smart FromUs RADIATION DOSE: CT Rad equipment meets quality standard of care and radiation dose reduction techniq ues were employed. CTDIvol: 15.6 mGy. DLP: 825 mGy-cm.mGy. LIMITATIONS: None. FINDINGS: LOWER CHEST: New moderate right, small left pleural effusions and associated atelectasis o r consolidation. NON-CONTRASTED LIVER, SPLEEN, ADRENALS: Evaluation limited by lack of IV contrast. No identified sign ificant masses. PANCREAS: No masses. No peripancreatic inflammatory changes. GALLBLADDER: Small gallstone without evidence of acute cholecystitis. RIGHT KIDNEY AND URETER: No suspicious masses. Assessment limited by lack of IV contrast. No signif icant calcifications. No hydronephrosis or hydroureter. LEFT KIDNEY AND URETER: No suspicious masses. Assessment limited by lack of IV contrast. No signifi cant calcifications. No hydronephrosis or hydroureter. AORTA AND RETROPERITONEUM: No aneurysm. No retroperitoneal masses or adenopathy. Calcific atheroscle rosis. BOWEL AND PERITONEAL CAVITY: New small volume perihepatic ascites. Pancolonic diverticulosis, severe in the sigmoid colon, without evidence of acute diverticulitis. APPENDIX: Normal. PELVIS, BLADDER, AND ABDOMINAL WALL:No abnormal masses. No free fluid. Bladder normal. BONES: Redemonstrated L2 compression deformity unchanged from prior. OTHER: No other significant finding. IMPRESSION: 1. New pleural effusions, ascites, and anasarca. 2. Cholelithiasis without evidence of acute cholecystitis. 3. Diverticulosis without evidence of acute diverticulitis. COMMENT: Quality ID # [id number]: Final reports with documentation of one or more dose reduction techniques (e.g., Automated exposure control, adjustment of the mA and/or kV according to patient size, use of iterative reconstruction technique) TECHNICAL DOCUMENTATION: JOB ID: [id number] [employer]- All Rights Reserved Reading location - IP/workstation name: [email or web address]
[2018-11-27 14:41] LABS: APPEARANCE,URINE SLIGHTLY-CLOUDY; BILIRUBIN,URINE NEGATIVE (NEGATIVE); COLOR,URINE YELLOW; GLUCOSE, URINE NEGATIVE (NEGATIVE); KETONES,URINE NEGATIVE (NEGATIVE); LEUKOCYTE ESTERASE,URINE NEGATIVE (NEGATIVE); NITRITE,URINE NEGATIVE (NEGATIVE); PROTEIN,URINE 100 mg/dL (NEGATIVE); URINE SPECIFIC GRAVITY 1.013; UROBILINOGEN,URINE NEGATIVE mg/dL (<2.0)
--- NOTE | 2018-11-27 15:25 | RADIOLOGY REPORT (SQ) ---
EXAM DESCRIPTION: CHEST SINGLE VIEW COMPLETED DATE/TIME: 11/27/2018 3:17 pm REASON FOR STUDY: Pleural effusion and Hx CHF. COMPARISON: 11/02/2018 EXAM PARAMETERS: NUMBER OF VIEWS: One view. TECHNIQUE: Single frontal radiographic view of the chest acquired. RADIATION DOSE: NA LIMITATIONS: None. FINDINGS: LUNGS AND PLEURA: No opacities, masses or pneumothorax. No pleural effusion. MEDIASTINUM AND HILAR STRUCTURES: No masses. Contour normal. HEART AND VASCULAR STRUCTURES: Heart size is borderline. There is no ilan pulmonary edema. BONES: No acute findings. HARDWARE: None in the chest. OTHER: No other significant finding. IMPRESSION: Borderline cardiomegaly without pulmonary edema. TECHNICAL DOCUMENTATION: JOB ID: [id number] [employer]- All Rights Reserved Reading location - IP/workstation name: [email or web address]
--- NOTE | 2018-11-27 16:39 | PDOC H&P ---
History of Present Illness Admission Date/PCP: GERSON MAY Patient complains of: Increased shortness of breath and ascites History of Present Illness: PREETI ELIZABETH is a 78 year old female who was just discharged from this hospital. She has had multiple admissions over the last 2 months. Today she is sent from [facility] for shortness of breath with increased abdominal girth. She was referred to the hospital service for admission. Past Medical History Cardiac Medical History: Reports: Atrial Fibrillation, Congestive Heart Failure, Coronary Artery Disease - With 2 stents in the past, Hyperlipidema, Hypertension Pulmonary Medical History: Reports: Chronic Obstructive Pulmonary Disease (COPD), Pneumonia, Respiratory Failure Denies: Tuberculosis Neurological Medical History: Denies: Migraine, Seizures Endocrine Medical History: Reports: Diabetes Mellitus Type 2 Renal/ Medical History: Denies: End Stage Renal Disease GI Medical History: Reports: Gastroesophageal Reflux Disease Musculoskeltal Medical History: Reports: Arthritis Skin Medical History: Reports: Psoriasis Psychiatric Medical History: Reports: Depression Denies: Bipolar Disorder Hematology: Reports: Anemia Denies: Bleeding Tendencies Past Surgical History Past Surgical History: Reports: Cardiac Catheterization, Herniorrhaphy, Hysterectomy Denies: Pacemaker Social History Information Source: Patient, [facility] Records Lives with: [facility] Smoking Status: Never Smoker Frequency of Alcohol Use: None Hx Recreational Drug Use: No Drugs: None Hx Prescription Drug Abuse: No - Advance Directive Resuscitation Status: Do Not Resuscitate Family History Family History: CAD Parental Family History Reviewed: Yes Children Family History Reviewed: Yes Sibling(s) Family History Reviewed.: Yes Medication/Allergy Home Medications: Acetaminophen [Tylenol 325 mg Tablet] 650 mg PO Q4HP PRN 11/21/18 Apremilast [Otezla] 30 mg PO Q12 11/21/18 Ascorbic Acid [Vitamin C] 500 mg PO DAILY 11/21/18 Aspirin [Ecotrin 81 mg EC Tablet] 81 mg PO DAILY 11/21/18 Atorvastatin Calcium [Lipitor 40 mg Tablet] 40 mg PO QHS 11/21/18 Bumetanide [Bumex 2 mg Tablet] 1 tab PO DAILY 11/21/18 Calcium Carbonate/Vitamin D3 [Calcium 600 + Vit D 400 Tablet] 2 tab PO DAILY 11/21/18 Carvedilol [Coreg 12.5 mg Tablet] 12.5 mg PO Q12 11/21/18 Cholecalciferol (Vitamin D3) [Vitamin D3 1000 Unit Tablet] 1,000 unit PO DAILY 11/21/18 Cyclosporine 0.05% Oph Emulsio [Restasis 0.05% Oph Emulsion Pf 0.4 ml] 1 drop OU Q12 11/21/18 Diltiazem HCl [Cardizem Cd 240 mg Capsule.cr] 1 cap.sr PO DAILY 11/21/18 Ferrous Sulfate [Feosol 325 mg Tablet] 325 mg PO DAILY 11/21/18 Fluticasone/Vilanterol [Breo 100-25 Mcg Ellipta 14 Dose/Dpi] 1 inh IH DAILY 11/21/18 Insulin Aspart [Novolog Insulin (Aspart) 100 unit/mL] 0 unit SUBCUT .SLD SCALE 11/21/18 Insulin Glargine,Hum.rec.anlog [Basaglar Kwikpen U-100] 20 unit SQ QHS 11/21/18 Levothyroxine Sodium [Synthroid 0.025 mg Tablet] 25 mcg PO Q6AM 11/21/18 Lisinopril [Prinivil] 20 mg PO DAILY 11/21/18 Multivitamin [Tab-A-Deana (Multiple Vitamin) Tablet] 1 tab PO DAILY 11/21/18 Pantoprazole Sodium [Protonix [address] Tablet] 40 mg PO Q6AM 11/21/18 Prednisone [Deltasone 5 mg Tablet] 5 mg PO Q12 11/21/18 Sertraline HCl [Zoloft 50 mg Tablet] 50 mg PO DAILY 11/21/18 Tiotropium [place] [Spiriva Handihaler 5 Cap/Kit (18 Mcg/Cap)] 1 cap IH DAILY 11/21/18 Vit C/E/Zn/Coppr/Lutein/Zeaxan [Preservision Areds 2 Softgel] 2 each PO DAILY 11/21/18 Allergies/Adverse Reactions: methotrexate [Methotrexate] Allergy (Verified 11/27/18 11:52) Penicillins Allergy (Verified 11/27/18 11:52) Review of Systems Constitutional: PRESENT: fatigue, headache(s), weight gain. ABSENT: fever(s) Eyes: ABSENT: visual disturbances Ears: ABSENT: hearing changes Nose, Mouth, and Throat: ABSENT: mouth pain, sore throat Cardiovascular: PRESENT: dyspnea on exertion, orthropnea, other - Atrial fibrillation. ABSENT: edema Respiratory: PRESENT: dyspnea. ABSENT: hemoptysis, sputum Gastrointestinal: PRESENT: abdominal pain, bloating. ABSENT: heartburn, nausea, vomiting Genitourinary: ABSENT: difficulty urinating, hematuria Integumentary: ABSENT: diaphoresis, pruritus, rash Neurological: ABSENT: abnormal speech, memory loss, syncope, tremor(s), vertigo Psychiatric: ABSENT: anxiety, depression, hallucinations Endocrine: ABSENT: cold intolerance, heat intolerance Physical Exam Vital Signs: Temp Pulse Resp BP Pulse Ox 97.6 F 92 15 158/90 H 94 11/27/18 11:42 11/27/18 11:42 11/27/18 14:15 11/27/18 14:15 11/27/18 14:15 Intake & Output 11/26/18 11/27/18 11/28/18 06:59 06:59 06:59 Weight 80.5 kg General appearance: PRESENT: cooperative, mild distress, well-developed Head exam: PRESENT: atraumatic, normocephalic Eye exam: PRESENT: conjunctiva pale. ABSENT: scleral icterus Ear exam: PRESENT: normal external ear exam Mouth exam: PRESENT: moist, tongue midline Teeth exam: ABSENT: dental tenderness, poor dentation Neck exam: ABSENT: lymphadenopathy, tenderness, thyromegaly Respiratory exam: PRESENT: decreased breath sounds - At bases, rales, symmetrical. ABSENT: accessory muscle use, rhonchi, wheezes Cardiovascular exam: PRESENT: irregular rhythm, tachycardia GI/Abdominal exam: PRESENT: ascites, diminished bowel sounds, distended, soft, tenderness. ABSENT: guarding Rectal exam: PRESENT: deferred Gentrourinary exam: ABSENT: indwelling catheter Extremities exam: ABSENT: pedal edema Musculoskeletal exam: PRESENT: normal inspection Neurological exam: PRESENT: alert, awake, oriented to person, oriented to place, oriented to time, oriented to situation Psychiatric exam: PRESENT: flat affect. ABSENT: agitated, anxious Focused psych exam: ABSENT: delusional, restlessness Results Laboratory Results: 11/27/18 11:52 11/27/18 11:52 11/27/18 11/27/18 11/27/18 11:52 11:52 14:15 WBC 9.8 RBC 2.80 L Hgb 8.5 L Hct 25.6 L MCV 91 MCH 30.4 MCHC 33.3 RDW 17.8 H Plt Count 289 Seg Neutrophils % Not Reportable Lymphocytes % Not Reportable Monocytes % Not Reportable Eosinophils % Not Reportable Basophils % Not Reportable Absolute Neutrophils Not Reportable Absolute Lymphocytes Not Reportable Absolute Monocytes Not Reportable Absolute Eosinophils Not Reportable Absolute Basophils Not Reportable Sodium 143.2 Potassium 4.2 Chloride 110 H Carbon Dioxide 25 Anion Gap 8 BUN 35 H Creatinine 1.24 Est GFR ( Amer) 50 L Est GFR (Non-Af Amer) 42 L Glucose 111 H Calcium 8.6 Total Bilirubin 0.5 AST 22 ALT 20 Alkaline Phosphatase 81 Total Protein 5.5 L Albumin 2.7 L Lipase 304.2 H Urine Color YELLOW Urine Appearance SLIGHTLY-CLOUDY Urine pH 5.0 Ur Specific [place] 1.013 Urine Protein 100 H Urine Glucose (UA) NEGATIVE Urine Ketones NEGATIVE Urine Blood NEGATIVE Urine Nitrite NEGATIVE Ur Leukocyte Esterase NEGATIVE Urine WBC (Auto) 9 Urine RBC (Auto) 0 11/27/18 11:52 Troponin I 0.016 Impressions: Abdomen/Pelvis CT 11/27/18 12:39 IMPRESSION: 1. New pleural effusions, ascites, and anasarca. 2. Cholelithiasis without evidence of acute cholecystitis. 3. Diverticulosis without evidence of acute diverticulitis. Chest X-Ray 11/27/18 14:55 IMPRESSION: Borderline cardiomegaly without pulmonary edema. Assessment and Plan - Diagnosis (1) Pleural effusion Is this a current diagnosis for this admission?: Yes Plan: Patient has a sizable right-sided pleural effusion. The most likely etiology would be her congestive heart failure however she has decreased oncotic pressure because of low hemoglobin and low albumin. I will likely use intravenous diuretic therapy with albumin and transfusion to shift fluid. She may need a thoracentesis. (2) Ascites Qualifiers: Ascites type: other type Qualified Code(s): R18.8 - Other ascites Is this a current diagnosis for this admission?: Yes Plan: Similarly, her ascites may be due to low oncotic pressure and heart failure. She also has chronic kidney failure. There does not appear to be a liver disease active at this time that would cause this. Lipase is slightly elevated but her risk factors are small. (3) CHF (congestive heart failure) Qualifiers: Heart failure type: diastolic Heart failure chronicity: chronic Qualified Code(s): I50.32 - Chronic diastolic (congestive) heart failure Is this a current diagnosis for this admission?: Yes Plan: History of heart failure. Aggressive diuresis. Monitor blood pressure and electrolytes. (4) Atrial fibrillation with rapid ventricular response Is this a current diagnosis for this admission?: Yes Plan: Will likely need to adjust her medications. I feel that once we offload some volume this will help. (5) Chronic kidney disease, stage 3 Is this a current diagnosis for this admission?: Yes Plan: Monitor renal function with aggressive diuresis. (6) Diabetes mellitus type 2 in obese Is this a current diagnosis for this admission?: Yes Plan: Lantus and sliding scale insulin. Will adjust Lantus based on sliding scale requirements. (7) Lower GI bleed Is this a current diagnosis for this admission?: Yes Plan: We will monitor stool for occult blood. (8) Anemia Qualifiers: Anemia type: iron deficiency Is this a current diagnosis for this admission?: Yes Plan: Monitor hemoglobin. Transfuse when clinically indicated. - Time Time Spent with patient: 60 minutes Time Spent with patient: 35 or more minutes Medications reviewed and adjusted accordingly: Yes Anticipated discharge: SNF - Inpatient Certification Based on my medical assessment, after consideration of the patient's comorbidi ties, presenting symptoms, or acuity I expect that the services needed warrant INPATIENT care.: Yes I certify that my determination is in accordance with my understanding of Sylvia brunson's requirements for reasonable and necessary INPATIENT services [42 CFR 412.3e].: Yes Medical Necessity: Need Close Monitoring Due to Risk of Patient Decompensation, Need For Continuous Telemetry Monitoring
[2018-11-27] MEDS ORDERED: MAGNESIUM HYDROXIDE SUSP 30 ML UDCUP PO PRN (16:41)
[2018-11-27] MEDS ORDERED: PROMETHAZINE HCL 25 MG TABLET PO PRN (16:41)
[2018-11-27] MEDS ORDERED: MAG HYDROX/AL HYDROX/SIMETH SUSP 30 ML UDCUP PO PRN (16:41)
[2018-11-27] MEDS ORDERED: ACETAMINOPHEN 325 MG TABLET PO PRN (16:41)
[2018-11-27] MEDS ORDERED: NORMAL SALINE 250 ML IV PRN ×2 (16:59)
[2018-11-27] MEDS ORDERED: DEXTROSE 40% GEL 15 GM TUBE PO PRN ×2 (16:59)
[2018-11-27] MEDS ORDERED: GLUCAGON,HUMAN RECOMB 1 MG INJ IM PRN (16:59)
[2018-11-27] MEDS ORDERED: DEXTROSE 50%-WATER 25 GM/50 ML DISP.SYRIN IV PRN ×2 (16:59)
[2018-11-27] MEDS ORDERED: FUROSEMIDE INJ/PF 20 MG/2 ML SDV IV PRN (16:59)
[2018-11-27] MEDS: DILTIAZEM HCL 60 MG TABLET PO SCH (18:13)
[2018-11-27] MEDS: ALBUMIN HUMAN 12.5 GM/50 ML RTUINJ IV SCH ×2 (18:14→20:27)
--- NOTE | 2018-11-27 18:50 | EKG REPORT ---
SEVERITY:- ABNORMAL ECG - ATRIAL FIBRILLATION ANTERIOR INFARCT, OLD : Confirmed by: Cathryn Lopez 27-Nov-2018 18:50:07
[2018-11-27] MEDS: BUMETANIDE INJ/PF 1 MG/4 ML SDV IV SCH (19:01)
[2018-11-27] MEDS ORDERED: INSULIN GLARGINE,HUM.REC.ANLOG 1,000 UNIT/10 ML VIAL (PYX) SUBCUT ONE (21:38)
[2018-11-27] MEDS: PREDNISONE 5 MG TABLET PO SCH (21:43)
[2018-11-27] MEDS: ATORVASTATIN CALCIUM 40 MG TABLET PO SCH (21:43)
[2018-11-27] MEDS: LOSARTAN POTASSIUM 25 MG TABLET PO SCH (21:43)
[2018-11-27] MEDS: INSULIN LISPRO 100 UNIT/ML 3 ML VIAL SUBCUT SCH (21:43)
[2018-11-27] MEDS: LISINOPRIL 10 MG TABLET PO SCH (21:43)
[2018-11-27] MEDS: CARVEDILOL 12.5 MG TABLET PO SCH (21:43)
[2018-11-27] MEDS: INSULIN GLARGINE,HUM.REC.ANLOG 1,000 UNIT/10 ML VIAL SUBCUT SCH (21:44)
[2018-11-27] MEDS: CYCLOSPORINE 0.05% OPH EMULSIO 0.4 ML DROPERETTE OU SCH (21:45)
[2018-11-27] MEDS ORDERED: INSULIN GLARGINE HUM REC ANLOG 20 UNIT SQ SCH (22:00)
[2018-11-27] MEDS ORDERED: (PENDING PHARMACY ID) (Apremilast [Otezla] 30 MG) PO SCH (22:00)
[2018-11-28] MEDS: DILTIAZEM HCL 60 MG TABLET PO SCH ×4 (00:35→17:21)
[2018-11-28] MEDS: BUMETANIDE INJ/PF 1 MG/4 ML SDV IV SCH ×2 (06:00→22:43)
[2018-11-28] MEDS: LEVOTHYROXINE SODIUM 0.025 MG TABLET PO SCH (06:01)
[2018-11-28] MEDS: PANTOPRAZOLE SODIUM 40 MG TABLET.DR PO SCH (06:01)
[2018-11-28 06:24] LABS: ABSOLUTE BASOPHILS # (AUTO) 0.1 10^3/uL (0.0-0.2); ABSOLUTE LYMPHOCYTES (AUTO) 0.5 10^3/uL (0.5-4.7); ABSOLUTE MONOCYTES (AUTO) 0.6 10^3/uL (0.1-1.4); ABSOLUTE NEUT (AUTO) 9.6 10^3/uL (1.7-8.2); BASOPHILS % (AUTO) 0.5 % (0-2); EOSINOPHILS % (AUTO) 0.2 % (0-6); HEMOGLOBIN 10.1 g/dL (12.0-15.5); LYMPHOCYTES % (AUTO) 5.1 % (13-45); MEAN CORPUSCULAR HEMOGLOBIN 30.1 pg (27.0-33.4); MEAN CORPUSCULAR HGB CONC 33.5 g/dL (32.0-36.0); MEAN CORPUSCULAR VOLUME 90 fl (80-97); MONOCYTES % (AUTO) 5.5 % (3-13); PLATELET COUNT 253 10^3/uL (150-450); RED BLOOD COUNT 3.34 10^6/uL (3.72-5.28); RED CELL DISTRIBUTION WIDTH 16.6 % (11.5-14.0); SEGMENTED NEUTROPHILS % (AUTO) 88.7 % (42-78); TOTAL CELLS COUNTED % (AUTO) 100 %; WHITE BLOOD COUNT 10.8 10^3/uL (4.0-10.5)
[2018-11-28] MEDS: INSULIN LISPRO 100 UNIT/ML 3 ML VIAL SUBCUT SCH ×4 (08:01→22:43)
[2018-11-28] MEDS: FLUTICASONE/VILANTEROL 100-25 MCG/DOSE IH SCH (09:23)
[2018-11-28] MEDS: ASPIRIN 81 MG TABLET, ENT COATED PO SCH (09:24)
[2018-11-28] MEDS: LISINOPRIL 10 MG TABLET PO SCH ×2 (09:24→22:43)
[2018-11-28] MEDS: FERROUS SULFATE 325 MG TABLET PO SCH (09:24)
[2018-11-28] MEDS: LOSARTAN POTASSIUM 25 MG TABLET PO SCH ×2 (09:24→22:43)
[2018-11-28] MEDS: SERTRALINE HCL 50 MG TABLET PO SCH (09:24)
[2018-11-28] MEDS: PREDNISONE 5 MG TABLET PO SCH ×2 (09:25→22:43)
[2018-11-28] MEDS: MULTIVITAMIN TABLET PO SCH (09:25)
[2018-11-28] MEDS: TIOTROPIUM BROMIDE DPI 5 CAP/KIT (18 MCG/CAP) IH SCH (09:25)
[2018-11-28] MEDS: CARVEDILOL 12.5 MG TABLET PO SCH ×2 (09:25→22:43)
[2018-11-28] MEDS: CYCLOSPORINE 0.05% OPH EMULSIO 0.4 ML DROPERETTE OU SCH ×2 (09:26→22:46)
[2018-11-28] MEDS ORDERED: BUMETANIDE INJ/PF 1 MG/4 ML SDV IV SCH (18:00)
[2018-11-28] MEDS ORDERED: TEMAZEPAM 7.5 MG CAPSULE PO PRN (18:24)
[2018-11-28] MEDS ORDERED: MORPHINE SULFATE 10 MG/ML INJ IV PRN ×2 (18:56)
[2018-11-28] MEDS: ALBUMIN HUMAN 12.5 GM/50 ML RTUINJ IV SCH ×2 (19:45→21:42)
--- NOTE | 2018-11-28 22:32 | PDOC PROGRESS REPORT ---
Subjective Progress Note for:: 11/28/18 Subjective:: Feels slightly better regarding her breathing. Abdomen still distended and tense. She is sitting at the bed and has finished most of her breakfast. Reason For Visit: ASCITES, PLEURAL EFFUSION, HEART FAILURE Physical Exam Vital Signs: Temp Pulse Resp BP Pulse Ox 98.5 F 75 17 133/72 H 100 11/28/18 08:12 11/28/18 08:12 11/28/18 08:12 11/28/18 08:12 11/28/18 08:12 Intake & Output 11/27/18 11/28/18 11/29/18 06:59 06:59 06:59 Intake Total 770 Output Total 1900 Balance -1130 Weight 80.2 kg General appearance: PRESENT: no acute distress, cooperative, well-developed Head exam: PRESENT: atraumatic, normocephalic Ear exam: PRESENT: normal external ear exam Mouth exam: PRESENT: moist, tongue midline Respiratory exam: PRESENT: decreased breath sounds - Left base., rales - Bilaterally. Worse on left., symmetrical. ABSENT: rhonchi, tachypnea, wheezes Cardiovascular exam: PRESENT: irregular rhythm - Rate improved. Now under 100. GI/Abdominal exam: PRESENT: ascites, distended, firm, normal bowel sounds, tenderness - Diffuse nonlocalized tenderness Rectal exam: PRESENT: deferred Gentrourinary exam: ABSENT: indwelling catheter Extremities exam: ABSENT: calf tenderness, pedal edema Neurological exam: PRESENT: alert, awake, oriented to person, oriented to place, oriented to time, oriented to situation, CN II-XII grossly intact. ABSENT: motor sensory deficit Psychiatric exam: PRESENT: depressed - Especially regarding today's discussion about hospice, flat affect. ABSENT: agitated, anxious Focused psych exam: ABSENT: delusional, restlessness Results Laboratory Results: 11/28/18 05:28 11/27/18 11:52 11/27/18 11/27/18 11/27/18 11:52 11:52 14:15 WBC 9.8 RBC 2.80 L Hgb 8.5 L Hct 25.6 L MCV 91 MCH 30.4 MCHC 33.3 RDW 17.8 H Plt Count 289 Seg Neutrophils % Not Reportable Lymphocytes % Not Reportable Monocytes % Not Reportable Eosinophils % Not Reportable Basophils % Not Reportable Absolute Neutrophils Not Reportable Absolute Lymphocytes Not Reportable Absolute Monocytes Not Reportable Absolute Eosinophils Not Reportable Absolute Basophils Not Reportable Sodium 143.2 Potassium 4.2 Chloride 110 H Carbon Dioxide 25 Anion Gap 8 BUN 35 H Creatinine 1.24 Est GFR ( Amer) 50 L Est GFR (Non-Af Amer) 42 L Glucose 111 H Calcium 8.6 Magnesium Total Bilirubin 0.5 AST 22 ALT 20 Alkaline Phosphatase 81 Total Protein 5.5 L Albumin 2.7 L Lipase 304.2 H Urine Color YELLOW Urine Appearance SLIGHTLY-CLOUDY Urine pH 5.0 Ur Specific [place] 1.013 Urine Protein 100 H Urine Glucose (UA) NEGATIVE Urine Ketones NEGATIVE Urine Blood NEGATIVE Urine Nitrite NEGATIVE Ur Leukocyte Esterase NEGATIVE Urine WBC (Auto) 9 Urine RBC (Auto) 0 Blood Type Antibody Screen 11/27/18 11/28/18 11/28/18 17:27 05:28 05:28 WBC 10.8 H RBC 3.34 L Hgb 10.1 L Hct 30.0 L MCV 90 MCH 30.1 MCHC 33.5 RDW 16.6 H Plt Count 253 Seg Neutrophils % 88.7 H Lymphocytes % 5.1 L Monocytes % 5.5 Eosinophils % 0.2 Basophils % 0.5 Absolute Neutrophils 9.6 H Absolute Lymphocytes 0.5 Absolute Monocytes 0.6 Absolute Eosinophils 0.0 Absolute Basophils 0.1 Sodium Potassium Chloride Carbon Dioxide Anion Gap BUN Creatinine Est GFR ( Amer) Est GFR (Non-Af Amer) Glucose Calcium Magnesium 1.4 L Total Bilirubin AST ALT Alkaline Phosphatase Total Protein Albumin Lipase Urine Color Urine Appearance Urine pH Ur Specific [place] Urine Protein Urine Glucose (UA) Urine Ketones Urine Blood Urine Nitrite Ur Leukocyte Esterase Urine WBC (Auto) Urine RBC (Auto) Blood Type O NEGATIVE Antibody Screen NEGATIVE 11/27/18 11:52 Troponin I 0.016 Impressions: Abdomen/Pelvis CT 11/27/18 12:39 IMPRESSION: 1. New pleural effusions, ascites, and anasarca. 2. Cholelithiasis without evidence of acute cholecystitis. 3. Diverticulosis without evidence of acute diverticulitis. Chest X-Ray 11/27/18 14:55 IMPRESSION: Borderline cardiomegaly without pulmonary edema. Assessment and Plan - Diagnosis (1) Pleural effusion Is this a current diagnosis for this admission?: Yes Plan: Breathing is slightly better. She still has rales bilaterally. As reported on the CT scan there is a moderate right and small left pleural effusion that have recurred since her last hospitalization. Where utilizing intravenous Bumex preceded by IV albumin. We will do this for 2 days to see if we can achieve a net fluid loss of 2 to 3 L a day. (2) Ascites Qualifiers: Ascites type: other type Qualified Code(s): R18.8 - Other ascites Is this a current diagnosis for this admission?: Yes Plan: As noted above, we are instituting aggressive measures with Bumex, albumin and she did receive a unit of packed red blood cells last night. Hopefully the increased oncotic pressure will allow better diuresis. (3) CHF (congestive heart failure) Qualifiers: Heart failure type: diastolic Heart failure chronicity: chronic Qualified Code(s): I50.32 - Chronic diastolic (congestive) heart failure Is this a current diagnosis for this admission?: Yes Plan: The patient has chronic diastolic heart failure. I explained to her that this is a combination of issues. We will try and get as much fluid off with medications. If necessary consider paracentesis and thoracentesis on Friday. She is currently on Coreg, diltiazem, losartan and lisinopril as well as diuretic therapy. I have broken the extended release diltiazem into 6-hour dosing for better control. (4) Atrial fibrillation with rapid ventricular response Is this a current diagnosis for this admission?: Yes (5) Chronic kidney disease, stage 3 Is this a current diagnosis for this admission?: Yes Plan: Serum creatinine appears to be at baseline. With aggressive diuresis we will need to monitor as it will most likely increase as her GFR decreases. (6) Diabetes mellitus type 2 in obese Is this a current diagnosis for this admission?: Yes Plan: Continue Lantus and utilize sliding scale. Adjust Lantus dosing based on sliding scale requirements. (7) Lower GI bleed Is this a current diagnosis for this admission?: Yes Plan: The patient was recently admitted for lower GI bleed. Her hemoglobin has responded nicely to the unit of packed red blood cells. There is no evidence of current blood loss/hematochezia/melena. Continue to monitor hemoglobin. (8) Anemia Qualifiers: Anemia type: due to chronic kidney disease Chronic kidney disease stage: stage 3 (moderate) Qualified Code(s): N18.3 - Chronic kidney disease, stage 3 (moderate); D63.1 - Anemia in chronic kidney disease Is this a current diagnosis for this admission?: Yes Plan: Her anemia is likely due to 3 etiologies. Iron deficiency, chronic kidney disease and her recent GI bleed are all contributory. It is likely her bone marrow is quite depleted as well and so her ability to replace the red blood cells is diminished. She did receive unit of packed red blood cells last night to help with oncotic pressure. Continue to monitor hemoglobin. (9) Hypothyroidism Qualifiers: Hypothyroidism type: unspecified Qualified Code(s): E03.9 - Hypothyroidism, unspecified Is this a current diagnosis for this admission?: Yes Plan: Continue current dose of levothyroxine. It is unlikely that she requires a change in dosing. We will continue to monitor the patient and if there is suspicion I will check TSH levels. - Time Time Spent with patient: 25-34 minutes Medications reviewed and adjusted accordingly: Yes Anticipated discharge: SNF
[2018-11-28] MEDS: ATORVASTATIN CALCIUM 40 MG TABLET PO SCH (22:43)
--- NOTE | 2018-11-28 22:43 | ADVANCED CARE ---
- Diagnosis (1) Pleural effusion Diagnosis Current: Yes (2) Ascites Diagnosis Current: Yes (3) CHF (congestive heart failure) Diagnosis Current: Yes (4) Atrial fibrillation with rapid ventricular response Diagnosis Current: Yes (5) Chronic kidney disease, stage 3 Diagnosis Current: Yes (6) Diabetes mellitus type 2 in obese Diagnosis Current: Yes (7) Lower GI bleed Diagnosis Current: Yes (8) Anemia Diagnosis Current: Yes Attendance: For the morning discussion it was just the patient and myself. Returned this evening when the patient's crankshaft balancer was available to participate in further discussions. Resuscitation Status: Do Not Resuscitate Discussion: The morning discussion between the patient and myself focused on her current situation. The patient return to her home for 1 day in July and then required readmission. Since then she has been at [facility]. Unfortunately she has recurrent complications and has been readmitted to this hospital several times. She failed discharged home as there was some difficulty obtaining her prescriptions. She was readmitted the very next day. Subsequently she has been at [facility]. She has been readmitted for difficulty breathing and most recently GI bleeding. The patient returned to ED yesterday for increased abdominal girth, increased difficulty breathing and abdominal pain. She was found to have recurrent pleural effusions. I explained to both the patient and her crankshaft balancer that her current situation is 1 of progressive decline. Despite an aggressive regimen of many medications she continues to have exacerbations of different issues. Most of them have been related to her cardiopulmonary status. This is affected by her renal status. The gastrointestinal bleeding only compounded the situation. Reviewed the fact that her windows between hospitalizations are growing smaller and smaller. She is failing therapy more quickly each time. This is despite an aggressive regimen. I explained that her body is just not capable of healing and that moving forward she will never get out of the detention and just keep bouncing back and forth to the hospital. We discussed the quality of life that that presents. It is not a quality of life that she relish is. In the morning she seemed to understand and in fact asked me what my advice was. I explained that if she were my relative I certainly would encourage the use of hospice. I explained that while on hospice we would start with her baseline medications. As she declined we would in fact then slowly convert to comfort care only. I told her that the pain and difficulty breathing that she tends to experience on a fairly constant basis would be addressed with aggressive use of IV medication. The medication will be used to treat pain, agitation, anxiety and air hunger. I also explained that in comfort care situations we use aggressive dosing and it would be nallely to the patient dying in her sleep. When I reviewed all of this with the patient's crankshaft balancer this evening, at the bedside, we did identify the fact that she has very little in the way of family support. The crankshaft balancer is well aware of this and I was reminded of this during the morning discussion. The crankshaft balancer did have a chance to ask some questions and in fact had, in my opinion, a good grasp of the patient's situation and the decisions to be made. The crankshaft balancer was going to the patient's daughter's home after leaving the hospital to speak with the patient's daughter to apprise her of the situation. My assessment is that the crankshaft balancer is in agreement with a hospice type plan and he was going to have further discussions with the patient and her daughter. I explained that the patient could make a change in her treatment plan and go from DNR to hospice [facility] at any time. I told her to seriously think about it. We would continue to use very aggressive treatment plan to try and recover as much as possible but I was emphatic about the fact that the patient will continue to decline as if "dying by inches ". Care Planning Goals: Consider changing from DNR to hospice care knowing that eventual comfort care only would not be too far behind. Document(s) Completed: No documentation completed at this time. Time Spent: A total of 65 minutes was dedicated to the to bedside discussions.
[2018-11-28] MEDS: INSULIN GLARGINE,HUM.REC.ANLOG 1,000 UNIT/10 ML VIAL SUBCUT SCH (22:46)
[2018-11-29] MEDS: DILTIAZEM HCL 60 MG TABLET PO SCH ×5 (00:10→23:23)
[2018-11-29 05:00] LABS: HEMATOCRIT 28.4 % (36.0-47.0); HEMOGLOBIN 9.6 g/dL (12.0-15.5); MEAN CORPUSCULAR HGB CONC 33.9 g/dL (32.0-36.0); MEAN CORPUSCULAR VOLUME 89 fl (80-97); PLATELET COUNT 241 10^3/uL (150-450); RED BLOOD COUNT 3.21 10^6/uL (3.72-5.28); RED CELL DISTRIBUTION WIDTH 16.9 % (11.5-14.0)
[2018-11-29 05:33] LABS: ANION GAP 13 (5-19); BLOOD UREA NITROGEN 35 mg/dL (7-20); CALCIUM 9.1 mg/dL (8.4-10.2); CARBON DIOXIDE 27 mmol/L (22-30); CHLORIDE 104 mmol/L (98-107); GLUCOSE 128 mg/dL (75-110); POTASSIUM 4.2 mmol/L (3.6-5.0); SODIUM 143.6 mmol/L (137-145)
[2018-11-29 05:40] LABS: ABSOLUTE LYMPHOCYTES# (MANUAL) 0.3 10^3/uL (0.5-4.7); ABSOLUTE MONOCYTES # (MANUAL) 0.4 10^3/uL (0.1-1.4); ABSOLUTE NEUTROPHILS# (MANUAL) 8.4 10^3/uL (1.7-8.2); BASOPHILS % (MANUAL) 0 % (0-2); EOSINOPHILS % (MANUAL) 0 % (0-6); LYMPHOCYTES % (MANUAL) 3 % (13-45); METAMYELOCYTES % (MANUAL) 1 % (0); MONOCYTES % (MANUAL) 4 % (3-13); POLYCHROMASIA 1+; SEGMENTED NEUTROPHILS % (MAN) 92 % (42-78); TOTAL CELLS COUNTED 100
[2018-11-29 05:41] LABS: ANISOCYTOSIS 1+; HELMET CELLS SLIGHT; HYPOCHROMASIA SLIGHT; OVALOCYTES 1+; PLATELET COMMENT ADEQUATE; TEAR DROP CELLS SLIGHT
[2018-11-29] MEDS: LEVOTHYROXINE SODIUM 0.025 MG TABLET PO SCH (06:01)
[2018-11-29] MEDS: PANTOPRAZOLE SODIUM 40 MG TABLET.DR PO SCH (06:01)
[2018-11-29] MEDS: INSULIN LISPRO 100 UNIT/ML 3 ML VIAL SUBCUT SCH ×4 (08:07→22:01)
--- NOTE | 2018-11-29 09:28 | PDOC PROGRESS REPORT ---
Subjective Progress Note for:: 11/29/18 Subjective:: The patient is resting comfortably. She awakens easily. She states that she feels a little better today. Reason For Visit: ASCITES, PLEURAL EFFUSION, HEART FAILURE Physical Exam Vital Signs: Temp Pulse Resp BP Pulse Ox 98.2 F 72 16 137/60 H 98 11/29/18 04:00 11/29/18 07:00 11/29/18 04:00 11/29/18 04:00 11/29/18 04:00 Intake & Output 11/28/18 11/29/18 11/30/18 06:59 06:59 06:59 Intake Total 770 900 Output Total 1900 3000 Balance -1130 -2100 Weight 80.2 kg 75.1 kg General appearance: PRESENT: no acute distress, cooperative, well-developed - But frail appearing 78-year-old female resting in bed. Head exam: PRESENT: atraumatic, normocephalic, other - Alopecia Eye exam: PRESENT: conjunctiva pale. ABSENT: scleral icterus Ear exam: PRESENT: normal external ear exam Mouth exam: PRESENT: dry mucosa, tongue midline Respiratory exam: PRESENT: rales - Bilateral bases, symmetrical, wheezes - Occasional expiratory wheeze but not consistent, other - Slightly decreased inspiratory phase. It took some effort to try and take a deep breath.. ABSENT: tachypnea Cardiovascular exam: PRESENT: irregular rhythm, systolic murmur - Intermittent systolic murmur heard GI/Abdominal exam: PRESENT: normal bowel sounds, soft. ABSENT: distended, guarding, tenderness Rectal exam: PRESENT: deferred Gentrourinary exam: PRESENT: indwelling catheter Extremities exam: PRESENT: other - Nonpitting edema. ABSENT: calf tenderness Neurological exam: PRESENT: alert, awake, oriented to person, oriented to place, oriented to time, oriented to situation, CN II-XII grossly intact. ABSENT: motor sensory deficit Psychiatric exam: PRESENT: depressed, flat affect. ABSENT: agitated, anxious Focused psych exam: ABSENT: delusional, restlessness Skin exam: PRESENT: other - Large ecchymotic area antecubital fossa and surrounding area Results Laboratory Results: 11/29/18 04:34 11/29/18 04:34 11/29/18 11/29/18 04:34 04:34 WBC 9.0 RBC 3.21 L Hgb 9.6 L Hct 28.4 L MCV 89 MCH 30.0 MCHC 33.9 RDW 16.9 H Plt Count 241 Seg Neutrophils % Not Reportable Lymphocytes % Not Reportable Monocytes % Not Reportable Eosinophils % Not Reportable Basophils % Not Reportable Absolute Neutrophils Not Reportable Absolute Lymphocytes Not Reportable Absolute Monocytes Not Reportable Absolute Eosinophils Not Reportable Absolute Basophils Not Reportable Sodium 143.6 Potassium 4.2 Chloride 104 Carbon Dioxide 27 Anion Gap 13 BUN 35 H Creatinine 1.19 Est GFR ( Amer) 53 L Est GFR (Non-Af Amer) 44 L Glucose 128 H Calcium 9.1 Magnesium 1.3 L Lipase 141.0 11/27/18 11:52 Troponin I 0.016 Impressions: Abdomen/Pelvis CT 11/27/18 12:39 IMPRESSION: 1. New pleural effusions, ascites, and anasarca. 2. Cholelithiasis without evidence of acute cholecystitis. 3. Diverticulosis without evidence of acute diverticulitis. Chest X-Ray 11/27/18 14:55 IMPRESSION: Borderline cardiomegaly without pulmonary edema. Assessment and Plan - Diagnosis (1) Pleural effusion Is this a current diagnosis for this admission?: Yes Plan: The albumin and Bumex are working well. Today of 2.1 L. We will continue the same regimen today. She still has rales bilaterally. We will monitor her electrolytes on the aggressive diuretic regimen. (2) Ascites Qualifiers: Ascites type: other type Qualified Code(s): R18.8 - Other ascites Is this a current diagnosis for this admission?: Yes Plan: Slightly improved from yesterday. Noticeable decrease in tenderness. Continue diuresis as noted above. (3) CHF (congestive heart failure) Qualifiers: Heart failure type: diastolic Heart failure chronicity: chronic Qualified Code(s): I50.32 - Chronic diastolic (congestive) heart failure Is this a current diagnosis for this admission?: Yes Plan: Symptomatically improved as noted above. Continue albumin and IV Bumex to improve oncotic pressure and augment diuresis. We will monitor renal function and electrolytes daily. (4) Atrial fibrillation with rapid ventricular response Is this a current diagnosis for this admission?: Yes Plan: Rate is well controlled. The patient bruises quite easily and has ecchymotic lesions on her arms. She is not a good candidate for chronic anticoagulation. She is on aspirin daily. (5) Chronic kidney disease, stage 3 Is this a current diagnosis for this admission?: Yes Plan: The patient's renal failure in fact is holding steady today. Her GFR is not decreased. We will continue to monitor. (6) Diabetes mellitus type 2 in obese Is this a current diagnosis for this admission?: Yes Plan: Most fingerstick glucoses remain under 200. Continue current regimen. Adjust Lantus based on sliding scale requirements. (7) Lower GI bleed Is this a current diagnosis for this admission?: Yes Plan: She was admitted for a GI bleed several weeks ago. She did receive 1 unit of packed red blood cells. Her hemoglobin is down to 9.5 from 10.1. We will continue to monitor. (8) Anemia Qualifiers: Anemia type: due to chronic kidney disease Chronic kidney disease stage: stage 3 (moderate) Qualified Code(s): N18.3 - Chronic kidney disease, stage 3 (moderate); D63.1 - Anemia in chronic kidney disease Is this a current diagnosis for this admission?: Yes Plan: As noted above she received 1 unit of packed red blood cells 2 days ago. Her hemoglobin was 10.1 and has trickled down slightly to 9.6. We will continue to monitor. (9) Hypomagnesemia Is this a current diagnosis for this admission?: Yes Plan: We will continue to monitor. I have ordered IV magnesium for today and will start oral magnesium. - Time Time Spent with patient: 15-24 minutes Medications reviewed and adjusted accordingly: Yes
--- NOTE | 2018-11-29 09:31 | ADVANCED CARE ---
- Diagnosis (1) Pleural effusion Diagnosis Current: Yes (2) Ascites Diagnosis Current: Yes (3) CHF (congestive heart failure) Diagnosis Current: Yes (4) Atrial fibrillation with rapid ventricular response Diagnosis Current: Yes (5) Chronic kidney disease, stage 3 Diagnosis Current: Yes (6) Diabetes mellitus type 2 in obese Diagnosis Current: Yes (7) Lower GI bleed Diagnosis Current: Yes (8) Anemia Diagnosis Current: Yes (9) Hypomagnesemia Diagnosis Current: Yes Attendance: Bedside discussion with the patient. Resuscitation Status: Do Not Resuscitate Discussion: Several discussions occurred yesterday with the patient and the patient and her professional fighter. Today received a call from the physician for her at [facility]. We have discussed the possibility of hospice care. She is responding to treatment but her overall prognosis is quite poor. She keeps bouncing back to the hospital. I explained that she does not need to make a decision but I do want her to keep considering this. Another scenario would be getting as much out of this acute episode treatment as we can but when she decompensates next, which will likely be in several weeks, she might strongly consider comfort measures at that time. The patient is still undecided. She states "what will be will be "but does not make any decision. We will continue to discuss. Care Planning Goals: Address quality of life in view of her recurrent hospitalizations and permanent [facility] status. Document(s) Completed: None Time Spent: 15 minutes
[2018-11-29] MEDS: BUMETANIDE INJ/PF 1 MG/4 ML SDV IV SCH ×2 (09:59→21:22)
[2018-11-29] MEDS: LISINOPRIL 10 MG TABLET PO SCH ×2 (09:59→21:23)
[2018-11-29] MEDS: FERROUS SULFATE 325 MG TABLET PO SCH (09:59)
[2018-11-29] MEDS: CARVEDILOL 12.5 MG TABLET PO SCH ×2 (09:59→21:23)
[2018-11-29] MEDS: MAGNESIUM OXIDE 400 MG TABLET PO SCH ×2 (09:59→18:06)
[2018-11-29] MEDS: SERTRALINE HCL 50 MG TABLET PO SCH (10:00)
[2018-11-29] MEDS: CYCLOSPORINE 0.05% OPH EMULSIO 0.4 ML DROPERETTE OU SCH ×2 (10:00→21:22)
[2018-11-29] MEDS: PREDNISONE 5 MG TABLET PO SCH ×2 (10:00→21:23)
[2018-11-29] MEDS: ASPIRIN 81 MG TABLET, ENT COATED PO SCH (10:00)
[2018-11-29] MEDS: MULTIVITAMIN TABLET PO SCH (10:00)
[2018-11-29] MEDS: LOSARTAN POTASSIUM 25 MG TABLET PO SCH ×2 (10:00→21:22)
[2018-11-29] MEDS: TIOTROPIUM BROMIDE DPI 5 CAP/KIT (18 MCG/CAP) IH SCH (10:01)
[2018-11-29] MEDS: FLUTICASONE/VILANTEROL 100-25 MCG/DOSE IH SCH (10:01)
[2018-11-29] MEDS: MAGNESIUM SULFATE/D5W 1 GM/100 ML RTUPB IV SCH ×2 (10:14→11:28)
[2018-11-29] MEDS: ATORVASTATIN CALCIUM 40 MG TABLET PO SCH (21:22)
[2018-11-29] MEDS: INSULIN GLARGINE,HUM.REC.ANLOG 1,000 UNIT/10 ML VIAL SUBCUT SCH (21:23)
[2018-11-30] MEDS: LEVOTHYROXINE SODIUM 0.025 MG TABLET PO SCH (05:23)
[2018-11-30] MEDS: DILTIAZEM HCL 60 MG TABLET PO SCH ×4 (05:23→23:33)
[2018-11-30] MEDS: PANTOPRAZOLE SODIUM 40 MG TABLET.DR PO SCH (05:23)
[2018-11-30 06:54] LABS: ANION GAP 11 (5-19); BLOOD UREA NITROGEN 46 mg/dL (7-20); CALCIUM 9.3 mg/dL (8.4-10.2); CARBON DIOXIDE 31 mmol/L (22-30); CHLORIDE 101 mmol/L (98-107); GLUCOSE 117 mg/dL (75-110); POTASSIUM 4.1 mmol/L (3.6-5.0); SODIUM 142.6 mmol/L (137-145)
[2018-11-30] MEDS: INSULIN LISPRO 100 UNIT/ML 3 ML VIAL SUBCUT SCH ×4 (08:07→23:33)
[2018-11-30] MEDS: LISINOPRIL 10 MG TABLET PO SCH ×2 (11:22→23:33)
[2018-11-30] MEDS: LOSARTAN POTASSIUM 25 MG TABLET PO SCH ×2 (11:22→23:33)
[2018-11-30] MEDS: MULTIVITAMIN TABLET PO SCH (11:22)
[2018-11-30] MEDS: BUMETANIDE INJ/PF 1 MG/4 ML SDV IV SCH ×2 (11:22→23:31)
[2018-11-30] MEDS: ASPIRIN 81 MG TABLET, ENT COATED PO SCH (11:23)
[2018-11-30] MEDS: PREDNISONE 5 MG TABLET PO SCH ×2 (11:23→23:33)
[2018-11-30] MEDS: CARVEDILOL 12.5 MG TABLET PO SCH ×2 (11:23→23:33)
[2018-11-30] MEDS: SERTRALINE HCL 50 MG TABLET PO SCH (11:23)
[2018-11-30] MEDS: CYCLOSPORINE 0.05% OPH EMULSIO 0.4 ML DROPERETTE OU SCH ×2 (11:23→23:35)
[2018-11-30] MEDS: FERROUS SULFATE 325 MG TABLET PO SCH (11:23)
[2018-11-30] MEDS: MAGNESIUM OXIDE 400 MG TABLET PO SCH ×2 (11:23→17:30)
[2018-11-30] MEDS: TIOTROPIUM BROMIDE DPI 5 CAP/KIT (18 MCG/CAP) IH SCH (11:24)
[2018-11-30] MEDS: FLUTICASONE/VILANTEROL 100-25 MCG/DOSE IH SCH (11:24)
--- NOTE | 2018-11-30 19:23 | PDOC PROGRESS REPORT ---
Subjective Progress Note for:: 11/30/18 Subjective:: This is 78 years old female patient with past medical history of A. fib, congestive heart failure systolic, coronary artery disease, COPD, arthritis and depression transferred from [facility] long-term for shortness of breath. Of note patient has multiple admissions to the sister over the last 2 months. Patient has been managed as a case of acute on chronic systolic congestive failure exacerbation. Reason For Visit: ASCITES, PLEURAL EFFUSION, HEART FAILURE Physical Exam Vital Signs: Temp Pulse Resp BP Pulse Ox 98.4 F 122 H 16 142/73 H 96 11/30/18 16:00 11/30/18 16:00 11/30/18 16:00 11/30/18 16:00 11/30/18 16:01 Intake & Output 11/29/18 11/30/18 12/01/18 06:59 06:59 06:59 Intake Total 900 1100 711 Output Total 3000 2300 Balance -2100 -1200 711 Weight 75.1 kg 77 kg General appearance: PRESENT: mild distress Head exam: PRESENT: atraumatic Eye exam: PRESENT: conjunctiva pink Neck exam: ABSENT: carotid bruit, JVD, lymphadenopathy, thyromegaly Respiratory exam: PRESENT: clear to auscultation kaylee. ABSENT: rales, rhonchi, wheezes Cardiovascular exam: PRESENT: RRR. ABSENT: diastolic murmur, rubs, systolic murmur GI/Abdominal exam: PRESENT: normal bowel sounds, soft. ABSENT: distended, guarding, mass, organolmegaly, rebound, tenderness Extremities exam: PRESENT: +2 edema Neurological exam: PRESENT: alert, awake, oriented to time, oriented to situation Results Laboratory Results: 11/29/18 04:34 11/30/18 05:53 11/30/18 05:53 Sodium 142.6 Potassium 4.1 Chloride 101 Carbon Dioxide 31 H Anion Gap 11 BUN 46 H Creatinine 1.34 H Est GFR ( Amer) 46 L Est GFR (Non-Af Amer) 38 L Glucose 117 H Calcium 9.3 Magnesium 1.6 11/27/18 11:52 Troponin I 0.016 Impressions: Abdomen/Pelvis CT 11/27/18 12:39 IMPRESSION: 1. New pleural effusions, ascites, and anasarca. 2. Cholelithiasis without evidence of acute cholecystitis. 3. Diverticulosis without evidence of acute diverticulitis. Chest X-Ray 11/27/18 14:55 IMPRESSION: Borderline cardiomegaly without pulmonary edema. Assessment and Plan - Diagnosis (1) Acute on chronic systolic (congestive) heart failure Is this a current diagnosis for this admission?: Yes Plan: Continue Lasix and cardioprotective medications. (2) Ascites and pleural effusion Is this a current diagnosis for this admission?: Yes Plan: Most probably due to CHF exacerbation compounded by hypoalbuminemia. Patient has been given albumin and Lasix. (3) Atrial fibrillation with RVR Is this a current diagnosis for this admission?: Yes Plan: Now the rate is controlled. (4) Stage III chronic kidney disease Is this a current diagnosis for this admission?: Yes Plan: Gentle diuresis and avoid other nephrotoxic agents. (5) Type 2 diabetes mellitus Is this a current diagnosis for this admission?: Yes Plan: Continue current regimen.
[2018-11-30] MEDS: ATORVASTATIN CALCIUM 40 MG TABLET PO SCH (23:33)
[2018-11-30] MEDS: INSULIN GLARGINE,HUM.REC.ANLOG 1,000 UNIT/10 ML VIAL SUBCUT SCH (23:34)
[2018-12-01] MEDS: LEVOTHYROXINE SODIUM 0.025 MG TABLET PO SCH (06:36)
[2018-12-01] MEDS: DILTIAZEM HCL 60 MG TABLET PO SCH ×4 (06:37→23:26)
[2018-12-01] MEDS: PANTOPRAZOLE SODIUM 40 MG TABLET.DR PO SCH (06:37)
[2018-12-01 07:26] LABS: ANION GAP 11 (5-19); BLOOD UREA NITROGEN 58 mg/dL (7-20); CALCIUM 9.6 mg/dL (8.4-10.2); CARBON DIOXIDE 32 mmol/L (22-30); CHLORIDE 99 mmol/L (98-107); GLUCOSE 118 mg/dL (75-110); POTASSIUM 4.1 mmol/L (3.6-5.0)
[2018-12-01] MEDS: INSULIN LISPRO 100 UNIT/ML 3 ML VIAL SUBCUT SCH ×4 (07:39→22:32)
[2018-12-01] MEDS ORDERED: (PENDING PHARMACY ID) (Bumetanide [Bumex 2 Mg Tablet] 1 TAB) PO SCH (10:00)
[2018-12-01] MEDS ORDERED: DILTIAZEM HCL 240 MG CAPSULE.CR PO SCH (10:00)
[2018-12-01] MEDS ORDERED: LISINOPRIL 10 MG TABLET PO SCH (10:00)
[2018-12-01] MEDS ORDERED: (PENDING PHARMACY ID) (Lisinopril [Prinivil] 20 MG) PO SCH (10:00)
[2018-12-01] MEDS ORDERED: VITAMIN D3 PO SCH (10:00)
[2018-12-01] MEDS ORDERED: CALCIUM CARBONATE PO SCH (10:00)
[2018-12-01] MEDS ORDERED: (PENDING PHARMACY ID) (Ascorbic Acid [Vitamin C] 500 MG) PO SCH (10:00)
[2018-12-01] MEDS ORDERED: [UNRECOGNIZED DRUG - OTHER] PO SCH (10:00)
[2018-12-01] MEDS ORDERED: BUMETANIDE 1 MG TABLET PO SCH (10:00)
[2018-12-01] MEDS: TIOTROPIUM BROMIDE DPI 5 CAP/KIT (18 MCG/CAP) IH SCH (10:30)
[2018-12-01] MEDS: FLUTICASONE/VILANTEROL 100-25 MCG/DOSE IH SCH (10:31)
[2018-12-01] MEDS: LISINOPRIL 10 MG TABLET PO SCH ×2 (10:33→22:33)
[2018-12-01] MEDS: ASCORBIC ACID 500 MG TABLET PO SCH (10:34)
[2018-12-01] MEDS: ASPIRIN 81 MG TABLET, ENT COATED PO SCH (10:34)
[2018-12-01] MEDS: CALCIUM CARBONATE 250 MG/VITAMIN D3 125 UNIT TABLET PO SCH ×2 (10:34→18:15)
[2018-12-01] MEDS: SERTRALINE HCL 50 MG TABLET PO SCH (10:35)
[2018-12-01] MEDS: FERROUS SULFATE 325 MG TABLET PO SCH (10:35)
[2018-12-01] MEDS: MAGNESIUM OXIDE 400 MG TABLET PO SCH ×2 (10:35→18:15)
[2018-12-01] MEDS: MULTIVITAMIN TABLET PO SCH (10:35)
[2018-12-01] MEDS: CHOLECALCIFEROL (D3) 1,000 UNIT TABLET PO SCH (10:35)
[2018-12-01] MEDS: BUMETANIDE INJ/PF 1 MG/4 ML SDV IV SCH ×2 (10:35→22:32)
[2018-12-01] MEDS: CARVEDILOL 12.5 MG TABLET PO SCH ×2 (10:35→22:33)
[2018-12-01] MEDS: PREDNISONE 5 MG TABLET PO SCH (10:35)
[2018-12-01] MEDS: LOSARTAN POTASSIUM 25 MG TABLET PO SCH ×2 (10:35→22:32)
[2018-12-01] MEDS: CYCLOSPORINE 0.05% OPH EMULSIO 0.4 ML DROPERETTE OU SCH ×2 (10:39→22:38)
--- NOTE | 2018-12-01 11:05 | PDOC PROGRESS REPORT ---
Subjective Progress Note for:: 12/01/18 Subjective:: No acute events in the last 24 hours. Patient is comfortable in the bed communicating well. Pulse ox is 94%. Afebrile. She has history of atrial fibrillation, systolic heart failure, coronary artery disease, COPD depression. She was admitted from [facility] for shortness of breath. Reason For Visit: ASCITES, PLEURAL EFFUSION, HEART FAILURE Physical Exam Vital Signs: Temp Pulse Resp BP Pulse Ox 97.5 F 68 19 126/55 H 94 12/01/18 07:28 12/01/18 07:28 12/01/18 07:28 12/01/18 07:28 12/01/18 07:28 Intake & Output 11/30/18 12/01/18 12/02/18 06:59 06:59 06:59 Intake Total 1100 711 Output Total 2300 1600 Balance -1200 -889 Weight 77 kg General appearance: PRESENT: no acute distress, obese Head exam: PRESENT: atraumatic Eye exam: PRESENT: PERRLA Neck exam: PRESENT: JVD. ABSENT: carotid bruit, lymphadenopathy, thyromegaly Respiratory exam: PRESENT: clear to auscultation kaylee. ABSENT: rales, rhonchi, wheezes Cardiovascular exam: PRESENT: systolic murmur, tachycardia GI/Abdominal exam: PRESENT: normal bowel sounds, soft. ABSENT: distended, guarding, mass, organolmegaly, rebound, tenderness Rectal exam: PRESENT: deferred Extremities exam: PRESENT: +1 edema Neurological exam: PRESENT: alert, awake, oriented to person, oriented to place, oriented to time, oriented to situation, CN II-XII grossly intact. ABSENT: motor sensory deficit Results Laboratory Results: 11/29/18 04:34 12/01/18 05:00 12/01/18 05:00 Sodium 142.0 Potassium 4.1 Chloride 99 Carbon Dioxide 32 H Anion Gap 11 BUN 58 H Creatinine 1.30 H Est GFR ( Amer) 48 L Est GFR (Non-Af Amer) 39 L Glucose 118 H Calcium 9.6 Magnesium 1.6 11/27/18 11:52 Troponin I 0.016 Impressions: Abdomen/Pelvis CT 11/27/18 12:39 IMPRESSION: 1. New pleural effusions, ascites, and anasarca. 2. Cholelithiasis without evidence of acute cholecystitis. 3. Diverticulosis without evidence of acute diverticulitis. Chest X-Ray 11/27/18 14:55 IMPRESSION: Borderline cardiomegaly without pulmonary edema. Assessment and Plan - Diagnosis (1) Acute on chronic systolic (congestive) heart failure Is this a current diagnosis for this admission?: Yes Plan: Continue Lasix and cardioprotective medications. 12/01/2018-patient was admitted for acute on chronic systolic heart failure. Presently on Bumex 3 mg every 12 hours. Plan is to decrease the Bumex to 1 mg twice a day IV. Chest x-ray at the time of examination shows borderline cardiomegaly without pulmonary edema. CT abdomen pelvis indicates new pleural effusions, ascites and anasarca. Yesterday intake is 1100 mL and output is 2.3 L with a negative balance of 1200 mL. (2) Ascites and pleural effusion Is this a current diagnosis for this admission?: Yes Plan: Most probably due to CHF exacerbation compounded by hypoalbuminemia. Patient has been given albumin and Lasix. 12/01/2018-ascites and bilateral pleural effusions most likely secondary to chronic systolic heart failure and hypoalbuminemia. Patient received albumin and Bumex. Patient's latest albumin is 2.7. Plan is to continue the present management. (3) Atrial fibrillation with RVR Is this a current diagnosis for this admission?: Yes Plan: Now the rate is controlled. 12/01/2018 patient has chronic atrial fibrillation. Heart rate today is 68. Rate controlled. Patient is not on anticoagulation. Presently on Coreg 12.5 mg p.o. every 12 hours and also on diltiazem 60 mg p.o. every 6 hours. (4) Stage III chronic kidney disease Is this a current diagnosis for this admission?: Yes Plan: Gentle diuresis and avoid other nephrotoxic agents. 01/2019-patient's has history of stage III kidney disease. Latest creatinine is 1.3 GFR of 48. Kidney function is stable. (5) Hypomagnesemia Is this a current diagnosis for this admission?: Yes Plan: We will continue to monitor. I have ordered IV magnesium for today and will start oral magnesium. 12/01/2018-patient serum magnesium level is 1.6. Plan to start her on magnesium oxide 400 mg p.o. twice daily. (6) Diabetes mellitus type 2 in obese Is this a current diagnosis for this admission?: Yes Plan: Most fingerstick glucoses remain under 200. Continue current regimen. Adjust Lantus based on sliding scale requirements. 12/01/2018-patient has history of type 2 diabetes mellitus. Latest blood sugar is 126. Patient is on insulin sliding scale. Is also receiving Lantus to 20 units at bedtime. plan is to stop prednisone from today. - Time Time Spent with patient: 25-34 minutes Medications reviewed and adjusted accordingly: Yes Anticipated discharge: SNF
[2018-12-01] MEDS: INSULIN GLARGINE,HUM.REC.ANLOG 1,000 UNIT/10 ML VIAL SUBCUT SCH (22:32)
[2018-12-01] MEDS: ATORVASTATIN CALCIUM 40 MG TABLET PO SCH (22:33)
[2018-12-02] MEDS: PANTOPRAZOLE SODIUM 40 MG TABLET.DR PO SCH (06:13)
[2018-12-02] MEDS: LEVOTHYROXINE SODIUM 0.025 MG TABLET PO SCH (06:13)
[2018-12-02] MEDS: DILTIAZEM HCL 60 MG TABLET PO SCH ×3 (07:56→18:18)
[2018-12-02] MEDS: INSULIN LISPRO 100 UNIT/ML 3 ML VIAL SUBCUT SCH ×4 (08:33→21:21)
[2018-12-02 09:09] LABS: ABSOLUTE BASOPHILS # (AUTO) 0.1 10^3/uL (0.0-0.2); ABSOLUTE EOSINOPHILS # (AUTO) 0.1 10^3/uL (0.0-0.6); ABSOLUTE LYMPHOCYTES (AUTO) 1.6 10^3/uL (0.5-4.7); ABSOLUTE MONOCYTES (AUTO) 0.7 10^3/uL (0.1-1.4); BASOPHILS % (AUTO) 0.8 % (0-2); EOSINOPHILS % (AUTO) 0.5 % (0-6); HEMATOCRIT 37.3 % (36.0-47.0); HEMOGLOBIN 12.4 g/dL (12.0-15.5); LYMPHOCYTES % (AUTO) 15.2 % (13-45); MEAN CORPUSCULAR HEMOGLOBIN 29.4 pg (27.0-33.4); MEAN CORPUSCULAR HGB CONC 33.3 g/dL (32.0-36.0); MEAN CORPUSCULAR VOLUME 89 fl (80-97); MONOCYTES % (AUTO) 6.3 % (3-13); PLATELET COUNT 322 10^3/uL (150-450); RED BLOOD COUNT 4.22 10^6/uL (3.72-5.28); RED CELL DISTRIBUTION WIDTH 16.8 % (11.5-14.0); SEGMENTED NEUTROPHILS % (AUTO) 77.2 % (42-78); TOTAL CELLS COUNTED % (AUTO) 100 %; WHITE BLOOD COUNT 10.4 10^3/uL (4.0-10.5)
[2018-12-02 09:38] LABS: ALANINE AMINOTRANSFERASE 22 U/L (9-52); ALBUMIN 3.7 g/dL (3.5-5.0); ALKALINE PHOSPHATASE 70 U/L (38-126); ANION GAP 13 (5-19); ASPARTATE AMINO TRANSFERASE 27 U/L (14-36); BILIRUBIN,DIRECT 0.3 mg/dL (0.0-0.4); BILIRUBIN,TOTAL 0.8 mg/dL (0.2-1.3); BLOOD UREA NITROGEN 64 mg/dL (7-20); CALCIUM 9.7 mg/dL (8.4-10.2); CARBON DIOXIDE 36 mmol/L (22-30); CHLORIDE 96 mmol/L (98-107); GLUCOSE 85 mg/dL (75-110); POTASSIUM 3.8 mmol/L (3.6-5.0); SODIUM 144.9 mmol/L (137-145); TOTAL PROTEIN 6.9 g/dL (6.3-8.2)
[2018-12-02] MEDS: FLUTICASONE/VILANTEROL 100-25 MCG/DOSE IH SCH (09:46)
[2018-12-02] MEDS: LOSARTAN POTASSIUM 25 MG TABLET PO SCH (09:47)
[2018-12-02] MEDS: SERTRALINE HCL 50 MG TABLET PO SCH (09:47)
[2018-12-02] MEDS: CHOLECALCIFEROL (D3) 1,000 UNIT TABLET PO SCH (09:47)
[2018-12-02] MEDS: ASCORBIC ACID 500 MG TABLET PO SCH (09:47)
[2018-12-02] MEDS: MAGNESIUM OXIDE 400 MG TABLET PO SCH ×2 (09:47→18:19)
[2018-12-02] MEDS: FERROUS SULFATE 325 MG TABLET PO SCH (09:47)
[2018-12-02] MEDS: MULTIVITAMIN TABLET PO SCH (09:47)
[2018-12-02] MEDS: CALCIUM CARBONATE 250 MG/VITAMIN D3 125 UNIT TABLET PO SCH ×2 (09:47→18:19)
[2018-12-02] MEDS: ASPIRIN 81 MG TABLET, ENT COATED PO SCH (09:47)
[2018-12-02] MEDS: CARVEDILOL 12.5 MG TABLET PO SCH ×2 (09:47→21:22)
[2018-12-02] MEDS: LISINOPRIL 10 MG TABLET PO SCH (09:48)
[2018-12-02] MEDS: TIOTROPIUM BROMIDE DPI 5 CAP/KIT (18 MCG/CAP) IH SCH (09:50)
[2018-12-02] MEDS: CYCLOSPORINE 0.05% OPH EMULSIO 0.4 ML DROPERETTE OU SCH ×2 (09:51→21:30)
[2018-12-02] MEDS: BUMETANIDE INJ/PF 1 MG/4 ML SDV IV SCH ×2 (09:56→21:22)
--- NOTE | 2018-12-02 15:03 | PDOC PROGRESS REPORT ---
Subjective Progress Note for:: 12/02/18 Subjective:: PREETI ELIZABETH is a 78 year old female who was just discharged from this hospital. She has had multiple admissions over the last 2 months. Today she is sent from [facility] for shortness of breath with increased abdominal girth. She was referred to the hospital service for admission. 12/02/2018. No acute events overnight. Denies any fever, chills, nausea, vomi ting, diarrhea, constipation or any urinary symptoms. Having crackles on the Rt lower lung on physical examination. Reason For Visit: ASCITES, PLEURAL EFFUSION, HEART FAILURE Physical Exam Vital Signs: Temp Pulse Resp BP Pulse Ox 98.1 F 68 13 141/48 H 97 12/02/18 08:00 12/02/18 08:00 12/02/18 08:00 12/02/18 08:00 12/02/18 08:00 Intake & Output 12/01/18 12/02/18 12/03/18 06:59 06:59 06:59 Intake Total 711 400 Output Total 1600 2275 Balance -889 -1875 Weight 73.7 kg General appearance: PRESENT: no acute distress, obese, well-developed, well- nourished Head exam: PRESENT: atraumatic, normocephalic Neck exam: ABSENT: carotid bruit, JVD, lymphadenopathy, thyromegaly Respiratory exam: PRESENT: crackles - Right lower lung.. ABSENT: rales, rhonchi, wheezes Cardiovascular exam: PRESENT: RRR. ABSENT: diastolic murmur, rubs, systolic murmur GI/Abdominal exam: PRESENT: normal bowel sounds, soft. ABSENT: distended, guarding, mass, organolmegaly, rebound, tenderness Results Laboratory Results: 12/02/18 08:59 12/02/18 08:59 12/02/18 12/02/18 08:59 08:59 WBC 10.4 RBC 4.22 Hgb 12.4 Hct 37.3 MCV 89 MCH 29.4 MCHC 33.3 RDW 16.8 H Plt Count 322 Seg Neutrophils % 77.2 Lymphocytes % 15.2 Monocytes % 6.3 Eosinophils % 0.5 Basophils % 0.8 Absolute Neutrophils 8.0 Absolute Lymphocytes 1.6 Absolute Monocytes 0.7 Absolute Eosinophils 0.1 Absolute Basophils 0.1 Sodium 144.9 Potassium 3.8 Chloride 96 L Carbon Dioxide 36 H Anion Gap 13 BUN 64 H Creatinine 1.33 H Est GFR ( Amer) 46 L Est GFR (Non-Af Amer) 38 L Glucose 85 Calcium 9.7 Magnesium 1.7 Total Bilirubin 0.8 AST 27 ALT 22 Alkaline Phosphatase 70 Total Protein 6.9 Albumin 3.7 11/27/18 12/02/18 11:52 08:59 Troponin I 0.016 NT-Pro-B Natriuret Pep 3330 H Impressions: Abdomen/Pelvis CT 11/27/18 12:39 IMPRESSION: 1. New pleural effusions, ascites, and anasarca. 2. Cholelithiasis without evidence of acute cholecystitis. 3. Diverticulosis without evidence of acute diverticulitis. Chest X-Ray 11/27/18 14:55 IMPRESSION: Borderline cardiomegaly without pulmonary edema. Assessment and Plan - Diagnosis (1) Acute on chronic systolic (congestive) heart failure Is this a current diagnosis for this admission?: Yes Plan: Acute systolic heart failure due to noncompliance. BNP 3330. SBP 121-146, T-max 98.1, pulse 60s, RR 13-18, saturating 97% on room air. Continue cardiac diet, Coreg 12.5 mg p.o. twice daily, diltiazem 60 mg p.o. ev karla 6, lisinopril 10 mg p.o. twice daily, Bumex 1 mg IV every 12 (2) Ascites and pleural effusion Is this a current diagnosis for this admission?: Yes Plan: Most probably due to CHF exacerbation compounded by hypoalbuminemia. Patient has been given albumin and Lasix. 12/01/2018-ascites and bilateral pleural effusions most likely secondary to chronic systolic heart failure and hypoalbuminemia. Patient received albumin and Bumex. Patient's latest albumin is 2.7. Plan is to continue the present management. (3) Atrial fibrillation with RVR Is this a current diagnosis for this admission?: Yes Plan: Now the rate is controlled. 12/01/2018 patient has chronic atrial fibrillation. Heart rate today is 68. Rate controlled. Patient is not on anticoagulation. Presently on Coreg 12.5 mg p.o. every 12 hours and also on diltiazem 60 mg p.o. every 6 hours. (4) Hypomagnesemia Is this a current diagnosis for this admission?: Yes Plan: We will continue to monitor. I have ordered IV magnesium for today and will start oral magnesium. 12/01/2018-patient serum magnesium level is 1.6. Plan to start her on magnesium oxide 400 mg p.o. twice daily. (5) Stage III chronic kidney disease Is this a current diagnosis for this admission?: Yes Plan: Gentle diuresis and avoid other nephrotoxic agents. 01/2019-patient's has history of stage III kidney disease. Latest creatinine is 1.3 GFR of 48. Kidney function is stable. (6) Diabetes mellitus type 2 in obese Is this a current diagnosis for this admission?: Yes Plan: Most fingerstick glucoses remain under 200. Continue current regimen. Adjust Lantus based on sliding scale requirements. 12/01/2018-patient has history of type 2 diabetes mellitus. Latest blood sugar is 126. Patient is on insulin sliding scale. Is also receiving Lantus to 20 units at bedtime. plan is to stop prednisone from today.
[2018-12-02] MEDS ORDERED: DEXTROSE 40% GEL 15 GM TUBE PO PRN ×2 (17:27)
[2018-12-02] MEDS ORDERED: DEXTROSE 50%-WATER 25 GM/50 ML DISP.SYRIN IV PRN ×2 (17:27)
[2018-12-02] MEDS ORDERED: GLUCAGON,HUMAN RECOMB 1 MG INJ IM PRN (17:27)
[2018-12-02] MEDS: ATORVASTATIN CALCIUM 40 MG TABLET PO SCH (21:22)
[2018-12-02] MEDS ORDERED: INSULIN GLARGINE,HUM.REC.ANLOG 1,000 UNIT/10 ML VIAL SUBCUT SCH (22:00)
[2018-12-03] MEDS: DILTIAZEM HCL 60 MG TABLET PO SCH ×2 (04:50→05:41)
[2018-12-03] MEDS: LEVOTHYROXINE SODIUM 0.025 MG TABLET PO SCH (05:40)
[2018-12-03] MEDS: PANTOPRAZOLE SODIUM 40 MG TABLET.DR PO SCH (05:41)
[2018-12-03 06:56] LABS: ABSOLUTE BASOPHILS # (AUTO) 0.1 10^3/uL (0.0-0.2); ABSOLUTE EOSINOPHILS # (AUTO) 0.1 10^3/uL (0.0-0.6); ABSOLUTE LYMPHOCYTES (AUTO) 1.4 10^3/uL (0.5-4.7); ABSOLUTE MONOCYTES (AUTO) 0.8 10^3/uL (0.1-1.4); ABSOLUTE NEUT (AUTO) 8.5 10^3/uL (1.7-8.2); EOSINOPHILS % (AUTO) 0.6 % (0-6); HEMATOCRIT 31.4 % (36.0-47.0); HEMOGLOBIN 10.7 g/dL (12.0-15.5); LYMPHOCYTES % (AUTO) 12.6 % (13-45); MEAN CORPUSCULAR HEMOGLOBIN 29.9 pg (27.0-33.4); MEAN CORPUSCULAR HGB CONC 34.1 g/dL (32.0-36.0); MEAN CORPUSCULAR VOLUME 88 fl (80-97); MONOCYTES % (AUTO) 7.7 % (3-13); PLATELET COUNT 244 10^3/uL (150-450); RED BLOOD COUNT 3.58 10^6/uL (3.72-5.28); RED CELL DISTRIBUTION WIDTH 16.4 % (11.5-14.0); SEGMENTED NEUTROPHILS % (AUTO) 78.1 % (42-78); TOTAL CELLS COUNTED % (AUTO) 100 %; WHITE BLOOD COUNT 10.8 10^3/uL (4.0-10.5)
[2018-12-03 07:18] LABS: ALANINE AMINOTRANSFERASE 25 U/L (9-52); ALBUMIN 3.3 g/dL (3.5-5.0); ALKALINE PHOSPHATASE 85 U/L (38-126); ANION GAP 11 (5-19); ASPARTATE AMINO TRANSFERASE 24 U/L (14-36); BILIRUBIN,DIRECT 0.3 mg/dL (0.0-0.4); BILIRUBIN,TOTAL 0.6 mg/dL (0.2-1.3); BLOOD UREA NITROGEN 66 mg/dL (7-20); CALCIUM 9.1 mg/dL (8.4-10.2); CARBON DIOXIDE 32 mmol/L (22-30); CHLORIDE 98 mmol/L (98-107); GLUCOSE 94 mg/dL (75-110); POTASSIUM 3.7 mmol/L (3.6-5.0); SODIUM 141.2 mmol/L (137-145)
[2018-12-03] MEDS ORDERED: BUMETANIDE 1 MG TABLET PO SCH (10:00)
[2018-12-03] MEDS ORDERED: LISINOPRIL 10 MG TABLET PO SCH (10:00)
[2018-12-03] MEDS ORDERED: DILTIAZEM HCL 240 MG CAPSULE.CR PO SCH (10:00)
[2018-12-03] MEDS: INSULIN LISPRO 100 UNIT/ML 3 ML VIAL SUBCUT SCH ×7 (11:51→21:54)
[2018-12-03] MEDS: FLUTICASONE/VILANTEROL 100-25 MCG/DOSE IH SCH (11:58)
[2018-12-03] MEDS: TIOTROPIUM BROMIDE DPI 5 CAP/KIT (18 MCG/CAP) IH SCH (11:59)
[2018-12-03] MEDS: CARVEDILOL 12.5 MG TABLET PO SCH ×2 (12:02→21:49)
[2018-12-03] MEDS: ASPIRIN 81 MG TABLET, ENT COATED PO SCH (12:02)
[2018-12-03] MEDS: FERROUS SULFATE 325 MG TABLET PO SCH (12:02)
[2018-12-03] MEDS: MULTIVITAMIN TABLET PO SCH (12:03)
[2018-12-03] MEDS: ASCORBIC ACID 500 MG TABLET PO SCH (12:03)
[2018-12-03] MEDS: CHOLECALCIFEROL (D3) 1,000 UNIT TABLET PO SCH (12:03)
[2018-12-03] MEDS: CALCIUM CARBONATE 250 MG/VITAMIN D3 125 UNIT TABLET PO SCH ×2 (12:03→17:28)
[2018-12-03] MEDS: BUMETANIDE INJ/PF 1 MG/4 ML SDV IV SCH ×2 (12:04→21:49)
[2018-12-03] MEDS: MAGNESIUM OXIDE 400 MG TABLET PO SCH ×2 (12:04→17:27)
[2018-12-03] MEDS: SERTRALINE HCL 50 MG TABLET PO SCH (12:05)
[2018-12-03] MEDS: CYCLOSPORINE 0.05% OPH EMULSIO 0.4 ML DROPERETTE OU SCH ×2 (12:05→21:55)
--- NOTE | 2018-12-03 12:35 | PDOC TRANSFER SUMMARY ---
General Admission Date/PCP: 11/27/18 17:05 GERSON MAY Resuscitation Status: Do Not Resuscitate - Transfer Diagnosis (1) Acute on chronic systolic (congestive) heart failure Is this a current diagnosis for this admission?: Yes (2) Ascites and pleural effusion Is this a current diagnosis for this admission?: Yes (3) Atrial fibrillation with RVR Is this a current diagnosis for this admission?: Yes (4) Hypomagnesemia Is this a current diagnosis for this admission?: Yes (5) Stage III chronic kidney disease Is this a current diagnosis for this admission?: Yes (6) Diabetes mellitus type 2 in obese Is this a current diagnosis for this admission?: Yes - Transfer Medications Home Medications: Acetaminophen [Tylenol 325 mg Tablet] 650 mg PO Q4HP PRN 11/21/18 Apremilast [Otezla] 30 mg PO Q12 11/21/18 Ascorbic Acid [Vitamin C] 500 mg PO DAILY 11/21/18 Aspirin [Ecotrin 81 mg EC Tablet] 81 mg PO DAILY 11/21/18 Atorvastatin Calcium [Lipitor 40 mg Tablet] 40 mg PO QHS 11/21/18 Bumetanide [Bumex 2 mg Tablet] 1 tab PO DAILY 11/21/18 Calcium Carbonate/Vitamin D3 [Calcium 600 + Vit D 400 Tablet] 2 tab PO DAILY 11/21/18 Carvedilol [Coreg 12.5 mg Tablet] 12.5 mg PO Q12 11/21/18 Cholecalciferol (Vitamin D3) [Vitamin D3 1000 Unit Tablet] 1,000 unit PO DAILY 11/21/18 Cyclosporine 0.05% Oph Emulsio [Restasis 0.05% Oph Emulsion Pf 0.4 ml] 1 drop OU Q12 11/21/18 Diltiazem HCl [Cardizem Cd 240 mg Capsule.cr] 1 cap.sr PO DAILY 11/21/18 Ferrous Sulfate [Feosol 325 mg Tablet] 325 mg PO DAILY 11/21/18 Fluticasone/Vilanterol [Breo 100-25 Mcg Ellipta 14 Dose/Dpi] 1 inh IH DAILY 11/21/18 Insulin Aspart [Novolog Insulin (Aspart) 100 unit/mL] 0 unit SUBCUT .SLD SCALE 11/21/18 Insulin Glargine,Hum.rec.anlog [Basaglar Kwikpen U-100] 20 unit SQ QHS 11/21/18 Levothyroxine Sodium [Synthroid 0.025 mg Tablet] 25 mcg PO Q6AM 11/21/18 Lisinopril [Prinivil] 20 mg PO DAILY 11/21/18 Multivitamin [Tab-A-Deana (Multiple Vitamin) Tablet] 1 tab PO DAILY 11/21/18 Pantoprazole Sodium [Protonix [address] Tablet] 40 mg PO Q6AM 11/21/18 Prednisone [Deltasone 5 mg Tablet] 5 mg PO Q12 11/21/18 Sertraline HCl [Zoloft 50 mg Tablet] 50 mg PO DAILY 11/21/18 Tiotropium [place] [Spiriva Handihaler 5 Cap/Kit (18 Mcg/Cap)] 1 cap IH DAILY 11/21/18 Vit C/E/Zn/Coppr/Lutein/Zeaxan [Preservision Areds 2 Softgel] 2 each PO DAILY 11/21/18 Transfer Medications: Current Medications Acetaminophen (Tylenol 325 Mg Tablet) 650 mg PO Q4HP PRN PRN Reason: pain or temp greater than 101F Stop: 12/27/18 16:40 Al Hydrox/Mg Hydrox/Simethicone (Maalox Plus Susp 30 Udcup) 30 ml PO Q4HP PRN PRN Reason: HEARTBURN Stop: 12/27/18 16:40 Ascorbic Acid (Vitamin C 500 Mg Tablet) 500 mg PO DAILY [facility] Stop: 12/31/18 09:59 Last Admin: 12/03/18 12:03 Dose: 500 mg Documented by: Aspirin (Ecotrin 81 Mg Ec Tablet) 81 mg PO DAILY [facility] Stop: 12/28/18 09:59 Last Admin: 12/03/18 12:02 Dose: 81 mg Documented by: Atorvastatin Calcium (Lipitor 40 Mg Tablet) 40 mg PO QHS [facility] Stop: 12/27/18 21:59 Last Admin: 12/02/18 21:22 Dose: 40 mg Documented by: Bumetanide (Bumex Inj/Pf 1 Mg/4 Ml Sdv) 1 mg IV Q12 [facility] Stop: 12/31/18 21:59 Last Admin: 12/03/18 12:04 Dose: Not Given Documented by: Bumetanide (Bumex 1 Mg Tablet) 2 mg PO DAILY [facility] Stop: 01/02/19 09:59 Last Admin: 12/03/18 12:02 Dose: 2 mg Documented by: Calcium Carbonate (Os-Trey 250 Mg With Vitamin D 125 Units) 2 tab PO BID [facility] Stop: 12/31/18 09:59 Last Admin: 12/03/18 12:03 Dose: 2 tab Documented by: Carvedilol (Coreg 12.5 Mg Tablet) 12.5 mg PO Q12 [facility] Stop: 12/27/18 21:59 Last Admin: 12/03/18 12:02 Dose: 12.5 mg Documented by: Cholecalciferol (Vitamin D3 1000 Unit Tablet) 1,000 unit PO DAILY [facility] Stop: 12/31/18 09:59 Last Admin: 12/03/18 12:03 Dose: 1,000 unit Documented by: Cyclosporine (Restasis 0.05% Oph Emulsion Pf 0.4 Ml) 1 drop OU Q12 [facility] Stop: 12/27/18 21:59 Last Admin: 12/03/18 12:05 Dose: 1 drop Documented by: Dextrose (Dextrose Inj 50% Syringe (25 Gm/50 Ml)) 25 gm IV PRN PRN; Protocol PRN Reason: PER PROTOCOL Stop: 01/01/19 17:26 Dextrose (Dextrose Inj 50% Syringe (25 Gm/50 Ml)) 12.5 gm IV PRN PRN; Protocol PRN Reason: FOR BG 50-69 IN ALERT PATIENT Stop: 01/01/19 17:26 Diltiazem HCl (Cardizem Cd 240 Mg Capsule.Cr) 240 mg PO DAILY [facility] Stop: 01/02/19 09:59 Last Admin: 12/03/18 12:02 Dose: 240 mg Documented by: Ferrous Sulfate (Feosol 325 Mg Tablet) 325 mg PO DAILY [facility] Stop: 12/28/18 09:59 Last Admin: 12/03/18 12:02 Dose: 325 mg Documented by: Fluticasone/Vilanterol (Breo 100-25 Mcg Ellipta 14 Dose/Dpi) 1 inh IH DAILY [facility] Stop: 12/28/18 09:59 Last Admin: 12/03/18 11:58 Dose: 1 inhaler Documented by: Glucagon (Glucagen Inj 1 Mg Vial) 1 mg IM PRN PRN; Protocol PRN Reason: Evaluate for BG < 70 Stop: 01/01/19 17:26 Glucose (Glutose 40% Gel 15 Gm Tube) 15 gm PO PRN PRN; Protocol PRN Reason: FOR BG 50-69 IN ALERT PATIENT Stop: 01/01/19 17:26 Glucose (Glutose 40% Gel 15 Gm Tube) 30 gm PO PRN PRN; Protocol PRN Reason: FOR BG < 50 IN ALERT PATIENT Stop: 01/01/19 17:26 Insulin Glargine (Lantus Insulin 100 Unit/1 Ml 10 Ml) 14 unit SUBCUT QHS [facility] Stop: 01/02/19 21:59 Insulin Human Lispro (Humalog Insulin 100 Unit/1 Ml 3 Ml Vial) 0 - 12 unit SUBCUT ACHS [facility]; Protocol Stop: 12/27/18 21:59 Last Admin: 12/03/18 11:52 Dose: Not Given Documented by: Insulin Human Lispro (Humalog Insulin 100 Unit/1 Ml 3 Ml Vial) 2 unit SUBCUT AC [facility]; Protocol Stop: 01/02/19 07:59 Last Admin: 12/03/18 11:59 Dose: 2 unit Documented by: Levothyroxine Sodium (Synthroid 0.025 Mg Tablet) 0.025 mg PO Q6AM [facility] Stop: 12/28/18 05:59 Last Admin: 12/03/18 05:40 Dose: 0.025 mg Documented by: Lisinopril (Prinivil 10 Mg Tablet) 20 mg PO DAILY [facility] Stop: 01/02/19 09:59 Last Admin: 12/03/18 12:03 Dose: 20 mg Documented by: Magnesium Hydroxide (Milk Of Magnesia 30 Ml Udcup) 30 ml PO HSP PRN PRN Reason: FOR CONSTIPATION Stop: 12/27/18 16:40 Magnesium Oxide (Mag-Ox 400 Mg Tablet) 400 mg PO BID [facility] Stop: 12/29/18 09:59 Last Admin: 12/03/18 12:04 Dose: 400 mg Documented by: Morphine Sulfate (Morphine 10 Mg/Ml Inj) 1 mg IV Q4HP PRN PRN Reason: FOR PAIN SCALE 2-3 Stop: 12/05/18 18:55 Morphine Sulfate (Morphine 10 Mg/Ml Inj) 2 mg IV Q4HP PRN PRN Reason: FOR PAIN SCALE 4-5 Stop: 12/05/18 18:55 Last Admin: 11/28/18 19:44 Dose: 2 mg Documented by: Multivitamins (Tab-A-Deana (Multiple Vitamin) Tablet) 1 tab PO DAILY [facility] Stop: 12/28/18 09:59 Last Admin: 12/03/18 12:03 Dose: 1 tab Documented by: Pantoprazole Sodium (Protonix [address] Tablet) 40 mg PO Q6AM [facility] Stop: 12/28/18 05:59 Last Admin: 12/03/18 05:41 Dose: 40 mg Documented by: Patient Own Medication (Apremilast [Otezla]) 30 mg PO Q12 [facility] Stop: 12/27/18 21:59 Promethazine HCl (Phenergan 25 Mg Tablet) 12.5 mg PO Q4HP PRN PRN Reason: FOR NAUSEA/VOMITING Stop: 12/27/18 16:40 Sertraline HCl (Zoloft 50 Mg Tablet) 50 mg PO DAILY [facility] Stop: 12/28/18 09:59 Last Admin: 12/03/18 12:05 Dose: 50 mg Documented by: Sodium Chloride (Saline Flush 2.5 Ml Monoject Prefil Syrin) 2.5 ml IV Q8 [facility] Stop: 12/27/18 21:59 Last Admin: 12/03/18 05:41 Dose: 2.5 ml Documented by: Temazepam (Restoril 7.5 Mg Capsule) 7.5 mg PO HSP PRN PRN Reason: SLEEP OR INSOMNIA Stop: 12/05/18 18:23 Tiotropium [place] (Spiriva Handihaler 5 Cap/Kit (18 Mcg/Cap)) 1 cap IH DAILY [facility] Stop: 12/28/18 09:59 Last Admin: 12/03/18 11:59 Dose: 1 cap Documented by: - Allergies Allergies/Adverse Reactions: methotrexate [Methotrexate] Allergy (Verified 11/27/18 11:52) Penicillins Allergy (Verified 11/27/18 11:52) - Diet/Activity Discharge Diet: Cardiac, Diabetic Hospital Course Hospital Course: PREETI ELIZABETH is a 78 year old female who was just discharged from this hospital. She has had multiple admissions over the last 2 months. Today she is sent from [facility] for shortness of breath with increased abdominal girth. She was referred to the hospital service for admission. (1) Acute on chronic systolic (congestive) heart failure Acute systolic heart failure due to noncompliance. BNP 3330. SBP 121-146, T-max 98.1, pulse 60s, RR 13-18, saturating 97% on room air. Continued cardiac diet, Coreg 12.5 mg p.o. twice daily, diltiazem 60 mg p.o. every 6, lisinopril 10 mg p.o. twice daily, Bumex 1 mg IV every 12 Upon discharge she needs to continue Coreg 25 mg p.o. twice daily, Cardizem CD 240 mg p.o. daily, lisinopril 20 mg p.o. daily, Bumex 2 mg p.o. twice daily. Continue cardiac diet, volume restriction. (2) Ascites and pleural effusion Most probably due to CHF exacerbation compounded by hypoalbuminemia. Patient was given albumin and Lasix. Lower extremity edema improved. PO2 high 90s on room air. Has maintained negative fluid balance since admission. Fluid balance on 12/03/2018 -1600. Weight 25.9 kg down from 80.5 kg on 11/27/2018. Continue treatment for underlying CHF. (3) Atrial fibrillation with RVR Rate controlled. Cardizem CD p.o. daily. Patient is not anticoagulated. (4) Hypomagnesemia Resolved. Magnesium on 12/03/2018 1.6. Continue daily magnesium replacement. (5) Stage III chronic kidney disease Creatinine at baseline. Avoid nephrotoxic agents, monitor volume status and electrolytes. Outpatient nephrology follow-up. Physical Exam Vital Signs: Temp Pulse Resp BP Pulse Ox 98.3 F 112 H 18 123/56 L 96 12/03/18 11:02 12/03/18 11:02 12/03/18 11:02 12/03/18 11:02 12/03/18 11:02 Intake & Output 12/02/18 12/03/18 12/04/18 06:59 06:59 06:59 Intake Total 400 Output Total 2275 1600 Balance -1874 -1599 Weight 73.7 kg 75.9 kg General appearance: PRESENT: no acute distress, well-developed, well-nourished Head exam: PRESENT: atraumatic, normocephalic Respiratory exam: PRESENT: clear to auscultation kaylee. ABSENT: rales, rhonchi, wheezes Cardiovascular exam: PRESENT: RRR. ABSENT: diastolic murmur, rubs, systolic mur mur GI/Abdominal exam: PRESENT: normal bowel sounds, soft. ABSENT: distended, guarding, mass, organolmegaly, rebound, tenderness Extremities exam: PRESENT: full ROM. ABSENT: calf tenderness, clubbing, pedal edema Neurological exam: PRESENT: alert, awake, oriented to person, oriented to place, oriented to time, oriented to situation, CN II-XII grossly intact. ABSENT: motor sensory deficit Results Laboratory Results: 12/03/18 06:15 12/03/18 06:15 12/03/18 12/03/18 06:15 06:15 WBC 10.8 H RBC 3.58 L Hgb 10.7 L Hct 31.4 L MCV 88 MCH 29.9 MCHC 34.1 RDW 16.4 H Plt Count 244 Seg Neutrophils % 78.1 H Lymphocytes % 12.6 L Monocytes % 7.7 Eosinophils % 0.6 Basophils % 1.0 Absolute Neutrophils 8.5 H Absolute Lymphocytes 1.4 Absolute Monocytes 0.8 Absolute Eosinophils 0.1 Absolute Basophils 0.1 Sodium 141.2 Potassium 3.7 Chloride 98 Carbon Dioxide 32 H Anion Gap 11 BUN 66 H Creatinine 1.37 H Est GFR ( Amer) 45 L Est GFR (Non-Af Amer) 37 L Glucose 94 Calcium 9.1 Magnesium 1.6 Total Bilirubin 0.6 AST 24 ALT 25 Alkaline Phosphatase 85 Total Protein 6.0 L Albumin 3.3 L 11/27/18 12/02/18 11:52 08:59 Troponin I 0.016 NT-Pro-B Natriuret Pep 3330 H Impressions: Abdomen/Pelvis CT 11/27/18 12:39 IMPRESSION: 1. New pleural effusions, ascites, and anasarca. 2. Cholelithiasis without evidence of acute cholecystitis. 3. Diverticulosis without evidence of acute diverticulitis. Chest X-Ray 11/27/18 14:55 IMPRESSION: Borderline cardiomegaly without pulmonary edema.
[2018-12-03] MEDS: ATORVASTATIN CALCIUM 40 MG TABLET PO SCH (21:49)
[2018-12-03] MEDS ORDERED: INSULIN GLARGINE,HUM.REC.ANLOG 1,000 UNIT/10 ML VIAL SUBCUT SCH (22:00)
[2018-12-03 22:09] VITALS: BP 141/48
== END 2018-12-03 22:07 | DRG 292 ==
LOC: ER 11:33 → EH 17:05 → 5 19:45
PROVIDERS: ADMIT Hospitalist; ATTEND Hospitalist
PROC: 30233N1 Transfusion of Nonautologous Red Blood Cells into Peripheral Vein, Percutaneous Approach (ICD-10-PCS; principal; 2018-11-27)
DX: I13.0 Hypertensive heart and chronic kidney disease with heart failure and stage 1 through stage 4 chronic kidney disease, or unspecified chronic kidney disease (principal); R18.8 Other ascites; I50.32 Chronic diastolic (congestive) heart failure; N18.3 Chronic kidney disease, stage 3 (moderate); E11.22 Type 2 diabetes mellitus with diabetic chronic kidney disease; E83.42 Hypomagnesemia; E66.9 Obesity, unspecified; I25.10 Atherosclerotic heart disease of native coronary artery without angina pectoris; E78.5 Hyperlipidemia, unspecified; E88.09 Other disorders of plasma-protein metabolism, not elsewhere classified; K21.9 Gastro-esophageal reflux disease without esophagitis; D63.1 Anemia in chronic kidney disease; E03.9 Hypothyroidism, unspecified; I48.2 Chronic atrial fibrillation; Z79.899 Other long term (current) drug therapy; Z88.0 Allergy status to penicillin; Z88.8 Allergy status to other drugs, medicaments and biological substances; Z95.5 Presence of coronary angioplasty implant and graft; Z90.710 Acquired absence of both cervix and uterus; Z82.49 Family history of ischemic heart disease and other diseases of the circulatory system; Z79.82 Long term (current) use of aspirin; Z79.890 Hormone replacement therapy; Z79.4 Long term (current) use of insulin; Z91.19 Patient's noncompliance with other medical treatment and regimen; Z86.010 Personal history of colon polyps
CPT/HCPCS: 36415; 36430; 51701; 71045; 74176; 80048; 80053; 81001; 82962; 83690; 83735; 83880; 84484; 85025; 86850; 86900; 86901; 86920; 93005; 93010; 96374; 99291; J1815; J2270; J3475; J3490; J7512; P9016; P9047

== ENCOUNTER 2018-12-13 15:56 | Emergency (ER) | payer MEDICARE, MEDICAID ==
[2018-12-13] MEDS ORDERED: DILTIAZEM HCL 120 MG CAP.SR.24H PO ONE (16:30)
--- NOTE | 2018-12-13 17:49 | EKG REPORT ---
SEVERITY:- ABNORMAL ECG - ATRIAL FIBRILLATION, V-RATE 81-144 LVH WITH SECONDARY REPOLARIZATION ABNORMALITY PROBABLE INFERIOR INFARCT, OLD ANTERIOR Q WAVES, POSSIBLY DUE TO LVH : Confirmed by: Dk Woods MD 13-Dec-2018 17:48:55
[2018-12-13 17:55] LABS: ALANINE AMINOTRANSFERASE 52 U/L (9-52); ALBUMIN 3.7 g/dL (3.5-5.0); ALKALINE PHOSPHATASE 120 U/L (38-126); ANION GAP 10 (5-19); ASPARTATE AMINO TRANSFERASE 44 U/L (14-36); BILIRUBIN,DIRECT 0.3 mg/dL (0.0-0.4); BILIRUBIN,TOTAL 0.4 mg/dL (0.2-1.3); BLOOD UREA NITROGEN 74 mg/dL (7-20); CALCIUM 9.8 mg/dL (8.4-10.2); CARBON DIOXIDE 27 mmol/L (22-30); CHLORIDE 105 mmol/L (98-107); GLUCOSE 135 mg/dL (75-110); POTASSIUM 4.4 mmol/L (3.6-5.0); SODIUM 142.2 mmol/L (137-145); TOTAL PROTEIN 6.7 g/dL (6.3-8.2)
[2018-12-13 18:14] LABS: HEMATOCRIT 35.1 % (36.0-47.0); HEMOGLOBIN 11.5 g/dL (12.0-15.5); MEAN CORPUSCULAR HEMOGLOBIN 29.3 pg (27.0-33.4); MEAN CORPUSCULAR HGB CONC 32.8 g/dL (32.0-36.0); MEAN CORPUSCULAR VOLUME 89 fl (80-97); PLATELET COUNT 293 10^3/uL (150-450); RED BLOOD COUNT 3.94 10^6/uL (3.72-5.28); RED CELL DISTRIBUTION WIDTH 16.9 % (11.5-14.0); WHITE BLOOD COUNT 11.9 10^3/uL (4.0-10.5)
[2018-12-13 18:15] LABS: ABSOLUTE LYMPHOCYTES# (MANUAL) 1.1 10^3/uL (0.5-4.7); ABSOLUTE MONOCYTES # (MANUAL) 0.5 10^3/uL (0.1-1.4); ABSOLUTE NEUTROPHILS# (MANUAL) 10.4 10^3/uL (1.7-8.2); ANISOCYTOSIS SLIGHT; BASOPHILS % (MANUAL) 0 % (0-2); EOSINOPHILS % (MANUAL) 0 % (0-6); LYMPHOCYTES % (MANUAL) 9 % (13-45); METAMYELOCYTES % (MANUAL) 1 % (0); MONOCYTES % (MANUAL) 4 % (3-13); PLATELET COMMENT ADEQUATE; PLATELET LARGE PRESENT; POIKILOCYTOSIS SLIGHT; SEGMENTED NEUTROPHILS % (MAN) 86 % (42-78); TOTAL CELLS COUNTED 100
--- NOTE | 2018-12-13 18:50 | ER Document Report ---
ED General - General Chief Complaint: Irregular Pulse Stated Complaint: CHEST TIGHTNESS Time Seen by Provider: 12/13/18 16:30 Primary Care Provider: GERSON MAY MD [Primary Care Provider] - Follow up as needed Notes: Patient was sent here from [facility] because her heart rate was in the 140s to 150. Patient has known atrial fibrillation with episodes of rapid ventricular response. She is currently on diltiazem 120 mg sustained release, 2 pills every morning. She was just hospitalized at [facility] on November 27 and transferred to [facility] last week. Patient says she had some chest pressure earlier this morning, but none at this time. Does not have any more shortness of breath or difficulty breathing that she has had in the past. She has a history of chronic congestive heart failure along with anasarca. Daughter describes how the patient was diuresed during her recent hospitalization and it improved her breathing. However, it was apparently done with a Cook catheter in and the patient does not wish to have another catheter put in her bladder. Daughter said that she cannot handle the fluid otherwise so we will not try to diurese her at this time. Patient is a DNR patient. Patient has a long list of chronic medical problems including anemia and recur rent gastrointestinal bleeding, stage III kidney disease, congestive heart failure with anasarca and pleural effusions, and atrial fibrillation. TRAVEL OUTSIDE OF THE [place] IN LAST 30 DAYS: No - Related Data Allergies/Adverse Reactions: methotrexate [Methotrexate] Allergy (Verified 11/27/18 11:52) Penicillins Allergy (Verified 11/27/18 11:52) Past Medical History - Social History Smoking Status: Former Smoker Family History: Reviewed & Not Pertinent, CAD Patient has suicidal ideation: No Patient has homicidal ideation: No - Past Medical History Cardiac Medical History: Reports: Hx Atrial Fibrillation, Hx Congestive Heart Failure, Hx Coronary Artery Disease - With 2 stents in the past, Hx Hypercholesterolemia, Hx Hypertension Pulmonary Medical History: Reports: Hx COPD, Hx Pneumonia, Hx Respiratory Failure Endocrine Medical History: Reports: Hx Diabetes Mellitus Type 2 GI Medical History: Reports: Hx Gastroesophageal Reflux Disease Musculoskeletal Medical History: Reports Hx Arthritis Skin Medical History: Reports Hx Psoriasis Psychiatric Medical History: Reports: Hx Depression Past Surgical History: Reports: Hx Cardiac Catheterization, Hx Herniorrhaphy, Hx Hysterectomy - Immunizations Immunizations up to date: Yes Hx Diphtheria, Pertussis, Tetanus Vaccination: Yes Review of Systems - Review of Systems Notes: REVIEW OF SYSTEMS: CONSTITUTIONAL : Denies fever. EENT: Denies eye, ear, nose or mouth or throat pain or other symptoms. CARDIOVASCULAR: See HPI. RESPIRATORY: Denies cough, chest congestion, but has some shortness of breath. During recent hospitalization, patient had difficulty breathing because she had ascites collecting under her diaphragm limiting her diaphragmatic excursions. GASTROINTESTINAL: Denies abdominal pain or nausea, vomiting, or diarrhea. GENITOURINARY: Denies difficulty or painful urinating, urinary frequency, blood in urine. MUSCULOSKELETAL: Denies back or neck pain. Denies joint pain or swelling. SKIN: Denies rash or skin lesions. NEUROLOGICAL: Denies LOC or altered mental status. Denies headache. Denies sensory loss or motor deficits. ALL OTHER SYSTEMS REVIEWED AND NEGATIVE. Physical Exam - Vital signs Vitals: Temp Resp BP Pulse Ox 98.5 F 19 125/77 96 12/13/18 16:04 12/13/18 16:04 12/13/18 16:04 12/13/18 16:04 Interpretation: Tachycardic - Irregular heart rate about 120/min. Notes: PHYSICAL EXAMINATION: GENERAL: Chronically ill-appearing. No acute distress. Patient is very pleasant patient who carries on a very normal conversation and is oriented x3. HEAD: Atraumatic, normocephalic. EYES: Pupils equal round and reactive to light, extraocular movements intact. ENT: oropharynx clear without exudates. Moist mucous membranes. NECK: Normal range of motion, supple. LUNGS: Breath sounds clear and equal bilaterally. HEART: Regular rate and rhythm without murmurs. ABDOMEN: Soft, nontender. Patient has some abdominal distention which percusses to be ascites. Its less than the patient had on previous hospitalization a couple of weeks ago. BACK: No tenderness throughout entire back. EXTREMITIES: Normal range of motion without pain. No edema. NEUROLOGICAL: Normal speech, normal gait. Normal sensory, motor, and reflex exams. Awake, alert, and oriented x3. Cranial nerves normal. PSYCH: Depressed SKIN: Warm, dry, no rashes. Course - Re-evaluation Re-evalutation: 12/13/18 19:06 Initially, patient was given 120 mg of diltiazem sustained release p.o. Over a couple hours, patient's heart rate gradually slowed to about 100 with values between 90 and 110. She was comfortable able to sleep. - Vital Signs Vital signs: Temp Pulse Resp BP Pulse Ox 98.5 F 120 H 21 H 121/74 93 12/13/18 16:04 12/13/18 16:08 12/13/18 18:00 12/13/18 18:00 12/13/18 18:00 - Laboratory Result Diagrams: 12/13/18 16:50 12/13/18 16:50 Laboratory results interpreted by me: 12/13/18 12/13/18 16:50 16:50 WBC 11.9 H Hgb 11.5 L Hct 35.1 L RDW 16.9 H Seg Neuts % (Manual) 86 H Lymphocytes % (Manual) 9 L Metamyelocytes % 1 H Abs Neuts (Manual) 10.4 H BUN 74 H Creatinine 1.45 H Est GFR ( Amer) 42 L Est GFR (Non-Af Amer) 35 L Glucose 135 H AST 44 H - Diagnostic Test Radiology results interpreted by me: 12/13/18 19:06 Chest x-ray does not look much different than previous x-rays. Cardiomegaly without overt heart failure. - EKG Interpretation by Me Rate: Tachycardia Rhythm: A.Fib Additional EKG results interpreted by me: 12/13/18 19:[address] and T wave changes. No STEMI. Discharge - Discharge Clinical Impression: Atrial fibrillation Condition: Stable Disposition: REHAB FACILITY Additional Instructions: Atrial Fibrillation Atrial fibrillation is an abnormal heart rhythm, caused by irregular electrical circuits in the upper heart chamber. It can be caused by heart valve disease, hardening of the arteries, or metabolic problems such as thyroid disease, or may occur without a clear cause. Atrial fibrillation may occur only occasionally, or may be chronic. Atrial fibrillation often results in a very fast heart rate, with palpitations, lightheadedness, and shortness of breath. Treatment is to slow the abnormally fast rate, and to convert the rhythm back to normal, if possible. Many patients stay in atrial fibrillation for years without symptoms or complications. Your doctor will decide whether you can be converted back to a normal heart rhythm. Contact the doctor or emergency medical system at once if you develop chest pain, shortness of breath, or severe lightheadedness, or if you develop any disturbance of consciousness, problems with speech, or localized weakness. You were given 1 of your diltiazem 120 mg sustained release pills which has decreased your heart rate significantly and back to normal.. Calcium Channel Blockers A medication of the calcium channel jaimee type has been prescribed for you. Examples of this type of medicine are Calan, Isoptin, Procardia, and Cardizem. These medicines have a variety of uses, including prevention of angina attacks, treatment of blood pressure, regulation of certain heart rhythm problems, and prevention of migraine headaches. Calcium channel blockers work by interfering with the flow of calcium in cell membranes. This results in dilation of blood vessels, and slowing of electrical conduction in the heart. A slight dizziness (due to a fall in blood pressure) may occur with the first dose, and sometimes even with later doses. This may make you prone to dizziness if you stand up suddenly. Call the doctor if lightheadedness is severe, or if you develop palpitations, shortness of breath, or any other new or alarming symptoms. If you have recurrent episodes of significantly increased heart rate, I would suggest increasing your diltiazem or taking an extra pill as needed. All of your lab studies were essentially unchanged from previous studies. Nothing that need to be addressed tonight. FOLLOW-UP CARE: If you have been referred to a physician for follow-up care, call the physicians office for an appointment as you were instructed or within the next two days. If you experience worsening or a significant change in your symptoms, notify the physician immediately or return to the Emergency Department at any time for re-evaluation. Referrals: GERSON MAY MD [Primary Care Provider] - Follow up as needed
--- NOTE | 2018-12-13 19:06 | RADIOLOGY REPORT (SQ) ---
EXAM DESCRIPTION: CHEST SINGLE VIEW COMPLETED DATE/TIME: 12/13/2018 6:18 pm REASON FOR STUDY: Shortness of breath COMPARISON: 11/27/2018 and earlier EXAM PARAMETERS: NUMBER OF VIEWS: One view. TECHNIQUE: Single frontal radiographic view of the chest acquired. RADIATION DOSE: NA LIMITATIONS: None. FINDINGS: LUNGS AND PLEURA: No opacities, masses or pneumothorax. No pleural effusion. Few calcifie d granulomas within the lungs. MEDIASTINUM AND HILAR STRUCTURES: No masses. Contour normal. HEART AND VASCULAR STRUCTURES: Cardiac silhouette is unchanged in size. Central pulmonary vasculatur e is normal. BONES: No acute findings. HARDWARE: None in the chest. OTHER: No other significant finding. IMPRESSION: NO ACUTE RADIOGRAPHIC FINDING IN THE CHEST. TECHNICAL DOCUMENTATION: JOB ID: [id number] [employer]- All Rights Reserved Reading location - IP/workstation name: [email or web address]
[2018-12-13 19:10] VITALS: BP 114/58
== END 2018-12-13 19:35 ==
LOC: ER 15:56
DX: I48.91 Unspecified atrial fibrillation (principal); Z79.899 Other long term (current) drug therapy; I11.9 Hypertensive heart disease without heart failure; R18.8 Other ascites; J44.9 Chronic obstructive pulmonary disease, unspecified; E11.9 Type 2 diabetes mellitus without complications; I25.10 Atherosclerotic heart disease of native coronary artery without angina pectoris; R06.02 Shortness of breath; R00.0 Tachycardia, unspecified; Z66 Do not resuscitate; Z88.8 Allergy status to other drugs, medicaments and biological substances; Z88.0 Allergy status to penicillin; Z87.891 Personal history of nicotine dependence; Z95.5 Presence of coronary angioplasty implant and graft
CPT/HCPCS: 93005; 99285; 36415; 85025; 80053; 84484; 71045; 93010; A9270

== ENCOUNTER 2019-01-18 14:04 | Observation (INO) | payer MEDICARE, MEDICAID ==
[2019-01-18] MEDS ORDERED: DILTIAZEM HCL/D5W 125 MG/125 ML RTUINJ IV PRN (14:48)
[2019-01-18] MEDS ORDERED: DILTIAZEM HCL INJ 25 MG/5 ML VIAL IV ONE (14:48)
--- NOTE | 2019-01-18 15:01 | ER Document Report ---
ED General - General Stated Complaint: SHORT OF BREATH Time Seen by Provider: 01/18/19 14:18 Primary Care Provider: GERSON MAY MD [Primary Care Provider] - Follow up as needed TRAVEL OUTSIDE OF THE [place] IN LAST 30 DAYS: No - HPI Notes: Patient is a 78-year-old female that presents to the emergency department for chief complaint of shortness of breath. Patient was seeing Dr. Ventura this morning to establish care after being referred by her primary care doctor. Dr. Ventura referred her to the emergency room for A. fib with RVR. Patient states she does have a history of atrial fibrillation and believes it comes and goes. She denies feeling any chest pain or palpitations currently. She states she has had increasing shortness of breath with exertion over the last few days. She is unsure if she has had any change in lower extremity edema. Patient is not sure if she is on any blood thinning medication. She denies any recent illness, fever, cough, abdominal pain, nausea/vomiting, numbness and weakness. Past Medical History: Atrial fibrillation, hypertension, hyperlipidemia, dai betes Past Surgical History: Reviewed in chart Social History: Denies drugs alcohol tobacco Family History: Reviewed and noncontributory for presenting illness Allergies: Reviewed, see documented allergy list. REVIEW OF SYSTEMS: CONSTITUTIONAL : No fever No chills No diaphoresis No recent illness EENT: No vision changes No congestion No sore throat CARDIOVASCULAR: No chest pain No palpitations RESPIRATORY: shortness of breath No cough No difficulty breathing GASTROINTESTINAL: No abdominal pain No nausea No vomiting No diarrhea GENITOURINARY: No dysuria No hematuria No difficulty urinating MUSCULOSKELETAL: No back pain No leg pain No arm pain SKIN: No rashes No lesions LYMPHATIC: No swollen, enlarged glands. NEUROLOGICAL: No lightheadedness No headache No weakness No paresthesias PSYCHIATRIC: No anxiety No depression PHYSICAL EXAMINATION: Vital signs reviewed, nursing noted reviewed. GENERAL: Well-appearing, well-nourished and in no acute distress. HEAD: Atraumatic, normocephalic. EYES: Eyes appear normal, extraocular movements intact, sclera anicteric, conjunctiva are normal. ENT: nares patent, oropharynx clear without exudates. Moist mucous membranes. NECK: Normal range of motion, supple without lymphadenopathy LUNGS: Breath sounds clear to auscultation bilaterally and equal. No wheezes rales or rhonchi. HEART: Tachycardic rate and irregularly irregular rhythm without murmurs ABDOMEN: Soft, nontender, normoactive bowel sounds. No rebound, guarding, or rigidity. No masses appreciated. EXTREMITIES: Nontender, good range of motion. +2 bilateral lower examinee pitting edema, symmetric. NEUROLOGICAL: No focal neurological deficits. Moves all extremities spontaneously Motor and sensory grossly intact on exam. PSYCH: Normal mood, normal affect. SKIN: Warm, Dry, normal turgor, no rashes or lesions noted on exposed skin - Related Data Allergies/Adverse Reactions: methotrexate [Methotrexate] Allergy (Verified 11/27/18 11:52) Penicillins Allergy (Verified 11/27/18 11:52) Past Medical History - Social History Smoking Status: Never Smoker Family History: Reviewed & Not Pertinent, CAD - Past Medical History Cardiac Medical History: Reports: Hx Atrial Fibrillation, Hx Congestive Heart Failure, Hx Coronary Artery Disease - With 2 stents in the past, Hx Hypercholesterolemia, Hx Hypertension Pulmonary Medical History: Reports: Hx COPD, Hx Pneumonia, Hx Respiratory Failure Denies: Hx Tuberculosis Neurological Medical History: Denies: Hx Migraine, Hx Seizures Endocrine Medical History: Reports: Hx Diabetes Mellitus Type 2 Renal/ Medical History: Denies: Hx End Stage Renal Disease, Hx Peritoneal Dialysis GI Medical History: Reports: Hx Gastroesophageal Reflux Disease Musculoskeletal Medical History: Reports Hx Arthritis Skin Medical History: Reports Hx Psoriasis Psychiatric Medical History: Reports: Hx Depression Denies: Hx Bipolar Disorder Past Surgical History: Reports: Hx Cardiac Catheterization, Hx Herniorrhaphy, Hx Hysterectomy. Denies: Hx Pacemaker - Immunizations Immunizations up to date: Yes Hx Diphtheria, Pertussis, Tetanus Vaccination: Yes Physical Exam - Vital signs Vitals: Temp Resp BP Pulse Ox 98.1 F 29 H 144/85 H 100 01/18/19 14:46 01/18/19 14:46 01/18/19 14:46 01/18/19 14:46 Course - Re-evaluation Re-evalutation: 01/18/19 15:00 Vitals reviewed. Nursing notes reviewed. Patient is well-appearing and in no acute distress. She is currently on nasal cannula oxygen. Her EKG shows atrial fibrillation with a rate of 117. Patient is not anticoagulated on review of medications. She will be given Cardizem for rate control. She is otherwise resting comfortably with no current complaints. 01/18/19 16:10 After initial Cardizem: Patient did have rate control. She was started on Cardizem infusion for continued tachycardia. Patient blood pressure has come down with the Cardizem but is stable currently at 111/80. Patient's lab work sh ows baseline renal insufficiency as well as indeterminate troponin. She does have a mild anemia which she has had previously as well. Patient has no current signs of active bleeding. She will be admitted to the hospital for further cardiac evaluation. Care discussed with Dr. Momin who is accepted admission. Patient in agreement with plan of care. Laboratory 01/18/19 01/18/19 01/18/19 14:54 14:54 14:54 WBC 11.5 H RBC 3.34 L Hgb 9.9 L Hct 29.6 L MCV 89 MCH 29.6 MCHC 33.4 RDW 17.8 H Plt Count 180 Total Counted 100 Seg Neutrophils % Not Reportable Seg Neuts % (Manual) 87 H Lymphocytes % Not Reportable Lymphocytes % (Manual) 6 L Monocytes % Not Reportable Monocytes % (Manual) 7 Eosinophils % Not Reportable Eosinophils % (Manual) 0 Basophils % Not Reportable Basophils % (Manual) 0 Absolute Neutrophils Not Reportable Abs Neuts (Manual) 10.0 H Absolute Lymphocytes Not Reportable Abs Lymphs (Manual) 0.7 Absolute Monocytes Not Reportable Abs Monocytes (Manual) 0.8 Absolute Eosinophils Not Reportable Absolute Eos (Manual) 0.0 Absolute Basophils Not Reportable Abs Basophils (Manual) 0.0 Platelet Comment ADEQUATE Polychromasia 1+ Poikilocytosis SLIGHT Anisocytosis 1+ Tear Drop Cells SLIGHT Sodium 143.3 Potassium 4.2 Chloride 109 H Carbon Dioxide 26 Anion Gap 8 BUN 53 H Creatinine 1.39 H Est GFR ( Amer) 44 L Est GFR (Non-Af Amer) 36 L Glucose 119 H Calcium 9.1 Total Bilirubin 0.6 Direct Bilirubin 0.3 Neonat Total Bilirubin Not Reportable Neonat Direct Bilirubin Not Reportable Neonat Indirect Bili Not Reportable AST 23 ALT 34 Alkaline Phosphatase 105 Troponin I 0.039 Total Protein 6.0 L Albumin 3.3 L Chest X-Ray 01/18/19 14:18 IMPRESSION: HEART ENLARGED WITHOUT FAILURE. NO OTHER SIGNIFICANT RADIOGRAPHIC FINDING IN THE CHEST. - Vital Signs Vital signs: Temp Pulse Resp BP Pulse Ox 98.1 F 26 H 144/85 H 98 01/18/19 14:46 01/18/19 15:00 01/18/19 14:46 01/18/19 15:00 - Laboratory Result Diagrams: 01/18/19 14:54 01/18/19 14:54 Laboratory results interpreted by me: 01/18/19 01/18/19 14:54 14:54 WBC 11.5 H RBC 3.34 L Hgb 9.9 L Hct 29.6 L RDW 17.8 H Seg Neuts % (Manual) 87 H Lymphocytes % (Manual) 6 L Abs Neuts (Manual) 10.0 H Chloride 109 H BUN 53 H Creatinine 1.39 H Est GFR ( Amer) 44 L Est GFR (Non-Af Amer) 36 L Glucose 119 H Total Protein 6.0 L Albumin 3.3 L - EKG Interpretation by Me Additional EKG results interpreted by me: 01/18/19 15:01 Interpreted by myself 1428: Atrial fibrillation, rate 117, left axis, no STEMI, no significant change from 12/13/2018 Critical Care Note - Critical Care Note Total time excluding time spent on procedures (mins): 35 Comments: Critical care time 35 exclusive from separate billable procedures for a patient requiring complex medical decision making, and high potential for clinical deterioration. Time spent obtaining history from patient or surrogate, discussions with consultants, development of treatment plan with patient or surrogate, evaluation of patient's response to treatment, examination of patient, ordering and performing treatments and interventions, ordering and review of laboratory studies, re-evaluation of patient's condition, ordering and review of radiographic studies and review of old charts Discharge - Discharge Clinical Impression: Atrial fibrillation with RVR Condition: Stable Disposition: ADMITTED INPATIENT Admitting Provider: Liliane (Hospitalist) Unit Admitted: IMCU Referrals: GERSON MAY MD [Primary Care Provider] - Follow up as needed
--- NOTE | 2019-01-18 15:07 | RADIOLOGY REPORT (SQ) ---
EXAM DESCRIPTION: CHEST SINGLE VIEW COMPLETED DATE/TIME: 01/18/2019 2:54 pm REASON FOR STUDY: short of breath COMPARISON: 12/13/2018. NUMBER OF VIEWS: One view. TECHNIQUE: Single frontal radiographic view of the chest acquired. LIMITATIONS: None. FINDINGS: LUNGS AND PLEURA: No opacities, masses or pneumothorax. No pleural effusion. MEDIASTINUM AND HILAR STRUCTURES: No masses. Contour normal. HEART AND VASCULAR STRUCTURES: Heart enlarged without failure. Normal vasculature. BONES: No acute findings. HARDWARE: None in the chest. OTHER: No other significant finding. IMPRESSION: HEART ENLARGED WITHOUT FAILURE. NO OTHER SIGNIFICANT RADIOGRAPHIC FINDING IN THE CHEST. TECHNICAL DOCUMENTATION: JOB ID: [id number] [employer]- All Rights Reserved Reading location - IP/workstation name: [email or web address]
[2019-01-18 15:21] LABS: HEMATOCRIT 29.6 % (36.0-47.0); HEMOGLOBIN 9.9 g/dL (12.0-15.5); MEAN CORPUSCULAR HEMOGLOBIN 29.6 pg (27.0-33.4); MEAN CORPUSCULAR HGB CONC 33.4 g/dL (32.0-36.0); MEAN CORPUSCULAR VOLUME 89 fl (80-97); PLATELET COUNT 180 10^3/uL (150-450); RED BLOOD COUNT 3.34 10^6/uL (3.72-5.28); RED CELL DISTRIBUTION WIDTH 17.8 % (11.5-14.0); WHITE BLOOD COUNT 11.5 10^3/uL (4.0-10.5)
[2019-01-18 15:32] LABS: ALANINE AMINOTRANSFERASE 34 U/L (9-52); ALBUMIN 3.3 g/dL (3.5-5.0); ALKALINE PHOSPHATASE 105 U/L (38-126); ANION GAP 8 (5-19); ASPARTATE AMINO TRANSFERASE 23 U/L (14-36); BILIRUBIN,DIRECT 0.3 mg/dL (0.0-0.4); BILIRUBIN,TOTAL 0.6 mg/dL (0.2-1.3); BLOOD UREA NITROGEN 53 mg/dL (7-20); CALCIUM 9.1 mg/dL (8.4-10.2); CARBON DIOXIDE 26 mmol/L (22-30); CHLORIDE 109 mmol/L (98-107); GLUCOSE 119 mg/dL (75-110); POTASSIUM 4.2 mmol/L (3.6-5.0); SODIUM 143.3 mmol/L (137-145)
[2019-01-18 15:50] LABS: ABSOLUTE LYMPHOCYTES# (MANUAL) 0.7 10^3/uL (0.5-4.7); ABSOLUTE MONOCYTES # (MANUAL) 0.8 10^3/uL (0.1-1.4); BASOPHILS % (MANUAL) 0 % (0-2); EOSINOPHILS % (MANUAL) 0 % (0-6); LYMPHOCYTES % (MANUAL) 6 % (13-45); MONOCYTES % (MANUAL) 7 % (3-13); SEGMENTED NEUTROPHILS % (MAN) 87 % (42-78); TOTAL CELLS COUNTED 100
[2019-01-18 15:51] LABS: ANISOCYTOSIS 1+; PLATELET COMMENT ADEQUATE; POIKILOCYTOSIS SLIGHT; POLYCHROMASIA 1+; TEAR DROP CELLS SLIGHT
[2019-01-18] MEDS ORDERED: DEXTROSE 40% GEL 15 GM TUBE PO PRN ×2 (16:44)
[2019-01-18] MEDS ORDERED: GLUCAGON,HUMAN RECOMB 1 MG INJ IM PRN (16:44)
[2019-01-18] MEDS ORDERED: DEXTROSE 50%-WATER 25 GM/50 ML DISP.SYRIN IV PRN ×2 (16:44)
--- NOTE | 2019-01-18 17:02 | PDOC H&P ---
History of Present Illness Admission Date/PCP: 01/18/19 16:23 GERSON MAY Patient complains of: SOB History of Present Illness: PREETI ELIZABETH is a 78 year old female with a past medical history of atrial fibrillation not on anti-coagulation, CKD, congestive heart failure, CAD with 2 prior stents, hyperlipidemia, hypertension and insulin-dependent diabetes katt perez who presented with shortness of breath. Patient has had multiple admissions to CHF exacerbation and A. fib with RVR. She says that she does have chronic SOB but feels that she feels he is slightly short of breath more than her baseline in the past 5 to 7 days. She says that she does have some chest tightness but says that this is chronic and she does not have any chest pain at this time. She was referred by her PCP to Dr. Ventura, cardiology. She was seeing him earlier today and was noted to be in A. fib with RVR hence was [facility]. She has been started on Cardizem drip. Upon encounter, she appears comfortable. Jamesenlty on cardizem drip with a heart rate in the 110s to 120s. She denies shortness of breath at this time. As mentioned, she says that her chest tightness is chronic and is nothing new. When asked why she is not on anticoagulation, she says that she has a history of GI bleed manifesting as black stools and says that it was really not determined where she was bleeding from hence was not placed on a NOAC. Past Medical History Cardiac Medical History: Reports: Atrial Fibrillation, Congestive Heart Failure, Coronary Artery Disease - With 2 stents in the past, Hyperlipidema, Hypertension Pulmonary Medical History: Reports: Chronic Obstructive Pulmonary Disease (COPD), Pneumonia, Respiratory Failure Denies: Tuberculosis Neurological Medical History: Denies: Migraine, Seizures Endocrine Medical History: Reports: Diabetes Mellitus Type 2 Renal/ Medical History: Denies: End Stage Renal Disease GI Medical History: Reports: Gastroesophageal Reflux Disease Musculoskeltal Medical History: Reports: Arthritis Skin Medical History: Reports: Psoriasis Psychiatric Medical History: Reports: Depression Denies: Bipolar Disorder Hematology: Reports: Anemia Denies: Bleeding Tendencies Past Surgical History Past Surgical History: Reports: Cardiac Catheterization, Herniorrhaphy, Hysterectomy Denies: Pacemaker Social History Smoking Status: Never Smoker Frequency of Alcohol Use: None Hx Recreational Drug Use: No Drugs: None Hx Prescription Drug Abuse: No Family History Family History: Reviewed & Not Pertinent, CAD Parental Family History Reviewed: Yes - no premature CAD Children Family History Reviewed: No Sibling(s) Family History Reviewed.: No Medication/Allergy Home Medications: Acetaminophen [Tylenol 325 mg Tablet] 650 mg PO Q4HP PRN 11/21/18 Apremilast [Otezla] 30 mg PO Q12 11/21/18 Ascorbic Acid [Vitamin C] 500 mg PO DAILY 11/21/18 Aspirin [Ecotrin 81 mg EC Tablet] 81 mg PO DAILY 11/21/18 Atorvastatin Calcium [Lipitor 40 mg Tablet] 40 mg PO QHS 11/21/18 Calcium Carbonate/Vitamin D3 [Calcium 600 + Vit D 400 Tablet] 2 tab PO DAILY 11/21/18 Carvedilol [Coreg 12.5 mg Tablet] 12.5 mg PO Q12 11/21/18 Cholecalciferol (Vitamin D3) [Vitamin D3 1000 Unit Tablet] 1,000 unit PO DAILY 11/21/18 Cyclosporine 0.05% Oph Emulsio [Restasis 0.05% Oph Emulsion Pf 0.4 ml] 1 drop OU Q12 11/21/18 Diltiazem HCl [Cardizem Cd 240 mg Capsule.cr] 1 cap.sr PO DAILY 11/21/18 Ferrous Sulfate [Feosol 325 mg Tablet] 325 mg PO DAILY 11/21/18 Fluticasone/Vilanterol [Breo 100-25 Mcg Ellipta 14 Dose/Dpi] 1 inh IH DAILY 11/21/18 Levothyroxine Sodium [Synthroid 0.025 mg Tablet] 25 mcg PO Q6AM 11/21/18 Lisinopril [Prinivil] 20 mg PO DAILY 11/21/18 Multivitamin [Tab-A-Deana (Multiple Vitamin) Tablet] 1 tab PO DAILY 11/21/18 Pantoprazole Sodium [Protonix [address] Tablet] 40 mg PO Q6AM 11/21/18 Prednisone [Deltasone 5 mg Tablet] 5 mg PO Q12 11/21/18 Sertraline HCl [Zoloft 50 mg Tablet] 50 mg PO DAILY 11/21/18 Tiotropium [place] [Spiriva Handihaler 5 Cap/Kit (18 Mcg/Cap)] 1 cap IH DAILY 11/21/18 Vit C/E/Zn/Coppr/Lutein/Zeaxan [Preservision Areds 2 Softgel] 2 each PO DAILY 11/21/18 Bumetanide [Bumex 2 mg Tablet] 1 tab PO DAILY 30 Days #60 tablet 12/03/18 Insulin Glargine,Hum.rec.anlog [Lantus Insulin 100 Unit/1 ml 10 ml] 14 unit SUBCUT QHS 30 Days #3 vial 12/03/18 Insulin Lispro [Humalog Insulin (Lispro) 100 unit/mL] 2 unit SUBCUT AC 30 Days #10 ml 12/03/18 Magnesium Oxide [Mag-Ox 400 mg Tablet] 400 mg PO BID 30 Days #60 tablet 12/03/18 Allergies/Adverse Reactions: methotrexate [Methotrexate] Allergy (Verified 11/27/18 11:52) Penicillins Allergy (Verified 11/27/18 11:52) Review of Systems All systems: reviewed and no additional remarkable complaints except as stated - as mentioned in HPI Physical Exam Vital Signs: Temp Pulse Resp BP Pulse Ox 98.0 F 30 H 105/46 L 97 01/18/19 16:11 01/18/19 16:36 01/18/19 16:36 01/18/19 16:36 Intake & Output 01/17/19 01/18/19 01/19/19 06:59 06:59 06:59 Weight 168 lb 6.931 oz General appearance: PRESENT: no acute distress, well-developed, well-nourished Head exam: PRESENT: atraumatic, normocephalic Eye exam: PRESENT: conjunctiva pink, EOMI, PERRLA. ABSENT: scleral icterus Ear exam: PRESENT: normal external ear exam Mouth exam: PRESENT: moist, tongue midline Neck exam: ABSENT: carotid bruit, JVD, lymphadenopathy, thyromegaly Respiratory exam: PRESENT: clear to auscultation kaylee. ABSENT: rales, rhonchi, wheezes Cardiovascular exam: PRESENT: irregular rhythm, tachycardia. ABSENT: rubs Pulses: PRESENT: normal dorsalis pedis pul GI/Abdominal exam: PRESENT: normal bowel sounds, soft. ABSENT: distended, guard ing, mass, organolmegaly, rebound, tenderness Rectal exam: PRESENT: deferred Extremities exam: PRESENT: full ROM, +1 edema. ABSENT: calf tenderness, clubbing Neurological exam: PRESENT: alert, awake, oriented to person, oriented to place, oriented to time, oriented to situation, CN II-XII grossly intact. ABSENT: motor sensory deficit Results Laboratory Results: 01/18/19 14:54 01/18/19 14:54 01/18/19 01/18/19 14:54 14:54 WBC 11.5 H RBC 3.34 L Hgb 9.9 L Hct 29.6 L MCV 89 MCH 29.6 MCHC 33.4 RDW 17.8 H Plt Count 180 Seg Neutrophils % Not Reportable Lymphocytes % Not Reportable Monocytes % Not Reportable Eosinophils % Not Reportable Basophils % Not Reportable Absolute Neutrophils Not Reportable Absolute Lymphocytes Not Reportable Absolute Monocytes Not Reportable Absolute Eosinophils Not Reportable Absolute Basophils Not Reportable Sodium 143.3 Potassium 4.2 Chloride 109 H Carbon Dioxide 26 Anion Gap 8 BUN 53 H Creatinine 1.39 H Est GFR ( Amer) 44 L Est GFR (Non-Af Amer) 36 L Glucose 119 H Calcium 9.1 Total Bilirubin 0.6 AST 23 ALT 34 Alkaline Phosphatase 105 Total Protein 6.0 L Albumin 3.3 L 01/18/19 14:54 Troponin I 0.039 Impressions: Chest X-Ray 01/18/19 14:18 IMPRESSION: HEART ENLARGED WITHOUT FAILURE. NO OTHER SIGNIFICANT RADIOGRAPHIC FINDING IN THE CHEST. Assessment and Plan - Diagnosis (1) Atrial fibrillation with RVR Is this a current diagnosis for this admission?: Yes Plan: Currently on Cardizem drip. Titrate Cardizem up as she remains in the 120s. Blood pressures are stable. Not on anticoagulation as mentioned above due to history of GI bleed. Will check a TSH. No concern for PE as possible trigger for A. fib at this time as she denies acute SOB at this time and is saturating well on room air. (2) Coronary artery disease Qualifiers: Coronary Disease-Associated Artery/Lesion type: unspecified vessel or lesion type Associated angina: without angina Is this a current diagnosis for this admission?: Yes Plan: Stable. Resume home medications including aspirin and statin. (3) Diabetes mellitus type 2 in obese Is this a current diagnosis for this admission?: Yes Plan: Resume insulin regimen once verified. - Time Time Spent with patient: 25-34 minutes
--- NOTE | 2019-01-18 17:04 | ADVANCED CARE ---
- Diagnosis (1) Atrial fibrillation with RVR Diagnosis Current: Yes (2) Chronic kidney disease, stage 3 Diagnosis Current: Yes (3) Coronary artery disease Diagnosis Current: Yes (4) Type 2 diabetes mellitus Diagnosis Current: Yes (5) CHF (congestive heart failure) Diagnosis Current: Yes Resuscitation Status: Do Not Resuscitate Discussion: Discussed with patient. She is a DNR/DNI. She verbalized that she does not want us "pounding on her chest" or "putting any breathing tube down her throat" if she goes into cardiac or respiratory arrest. She says her brother, Pancho is her surrogate medical decision maker.
[2019-01-18] MEDS: DILTIAZEM HCL/D5W 125 MG/125 ML RTUINJ IV PRN ×2 (19:33→21:11)
[2019-01-18] MEDS: CARVEDILOL 12.5 MG TABLET PO SCH (21:09)
[2019-01-18] MEDS: INSULIN LISPRO 100 UNIT/ML 3 ML VIAL SUBCUT SCH (21:09)
[2019-01-18] MEDS: HEPARIN SOD (PORCINE) 5,000 UNIT/ML 1 ML SYRINGE SUBCUT SCH (21:10)
--- NOTE | 2019-01-18 22:59 | EKG REPORT ---
SEVERITY:- ABNORMAL ECG - ATRIAL FIBRILLATION, V-RATE 89-169 LEFT AXIS DEVIATION ANTERIOR INFARCT, OLD : Confirmed by: Cathryn Lopez 18-Jan-2019 22:59:06
[2019-01-19] MEDS: INSULIN LISPRO 100 UNIT/ML 3 ML VIAL SUBCUT SCH ×4 (08:51→22:08)
[2019-01-19] MEDS: CARVEDILOL 12.5 MG TABLET PO SCH ×2 (09:04→22:16)
[2019-01-19] MEDS: HEPARIN SOD (PORCINE) 5,000 UNIT/ML 1 ML SYRINGE SUBCUT SCH ×2 (09:04→22:09)
[2019-01-19] MEDS ORDERED: BISMUTH SUBSALICYLATE PO PRN (09:30)
[2019-01-19] MEDS ORDERED: [UNRECOGNIZED DRUG - MIXTURE] PO SCH (10:00)
[2019-01-19] MEDS ORDERED: (PENDING PHARMACY ID) (Lisinopril [Prinivil] 20 MG) PO SCH (10:00)
[2019-01-19] MEDS ORDERED: DILTIAZEM HCL 240 MG CAPSULE.CR PO SCH (10:00)
[2019-01-19] MEDS ORDERED: (PENDING PHARMACY ID) (Bumetanide [Bumex 2 Mg Tablet] 1 TAB) PO SCH (10:00)
[2019-01-19] MEDS ORDERED: (PENDING PHARMACY ID) (Apremilast [Otezla] 30 MG) PO SCH (10:00)
[2019-01-19] MEDS ORDERED: (PENDING PHARMACY ID) (Ascorbic Acid [Vitamin C] 500 MG) PO SCH (10:00)
[2019-01-19 10:16] LABS: FREE T3 3.75 pg/mL (2.77-5.27); FREE T4 (FREE THYROXINE) 0.6 ng/dL (0.78-2.19)
[2019-01-19] MEDS ORDERED: MAG HYDROX/AL HYDROX/SIMETH SUSP 30 ML UDCUP PO PRN (10:33)
[2019-01-19 10:38] LABS: ALANINE AMINOTRANSFERASE 31 U/L (9-52); ALKALINE PHOSPHATASE 81 U/L (38-126); ANION GAP 10 (5-19); ASPARTATE AMINO TRANSFERASE 18 U/L (14-36); BILIRUBIN,DIRECT 0.3 mg/dL (0.0-0.4); BILIRUBIN,TOTAL 0.6 mg/dL (0.2-1.3); BLOOD UREA NITROGEN 61 mg/dL (7-20); CALCIUM 8.8 mg/dL (8.4-10.2); CARBON DIOXIDE 25 mmol/L (22-30); CHLORIDE 107 mmol/L (98-107); GLUCOSE 230 mg/dL (75-110); PHOSPHORUS 4.4 mg/dL (2.5-4.5); POTASSIUM 4.2 mmol/L (3.6-5.0); SODIUM 141.7 mmol/L (137-145); TOTAL PROTEIN 5.7 g/dL (6.3-8.2)
[2019-01-19] MEDS: FERROUS SULFATE 325 MG TABLET PO SCH (10:58)
[2019-01-19] MEDS: CHOLECALCIFEROL (D3) 1,000 UNIT (25 MCG) TABLET PO SCH (10:58)
[2019-01-19] MEDS: PREDNISONE 5 MG TABLET PO SCH ×2 (10:58→22:16)
[2019-01-19] MEDS: SERTRALINE HCL 50 MG TABLET PO SCH (10:58)
[2019-01-19] MEDS: ASPIRIN 81 MG TABLET, ENT COATED PO SCH (10:58)
[2019-01-19] MEDS: MULTIVITAMIN TABLET PO SCH (10:58)
[2019-01-19] MEDS: TIOTROPIUM BROMIDE DPI 5 CAP/KIT (18 MCG/CAP) IH SCH (11:58)
[2019-01-19] MEDS: FLUTICASONE/VILANTEROL 100-25 MCG/DOSE IH SCH (11:59)
[2019-01-19] MEDS: BUMETANIDE 1 MG TABLET PO SCH (12:06)
[2019-01-19] MEDS: ASCORBIC ACID 500 MG TABLET PO SCH (12:06)
[2019-01-19] MEDS: LISINOPRIL 10 MG TABLET PO SCH (12:06)
[2019-01-19] MEDS: CYCLOSPORINE 0.05% OPH EMULSIO 0.4 ML DROPERETTE OU SCH ×2 (12:07→22:17)
[2019-01-19] MEDS ORDERED: FUROSEMIDE INJ/PF 40 MG/4 ML SDV IV ONE (13:44)
[2019-01-19] MEDS ORDERED: DIGOXIN INJ 0.5 MG/2 ML AMPULE IV ONE (14:00)
--- NOTE | 2019-01-19 20:34 | PDOC PROGRESS REPORT ---
Subjective Progress Note for:: 01/19/19 Subjective:: PREETI ELIZABETH is a 78 year old female with a past medical history of atrial fibrillation not on anti-coagulation, CKD, congestive heart failure, CAD with 2 prior stents, hyperlipidemia, hypertension and insulin-dependent diabetes mellitus who presented with shortness of breath. The patient was sent to [facility] by her cloth stretcher, Dr. Ventura, for AFIB with RVR. The patient was briefly on a diltiazem gtt, but has since been weaned. The patient was seen this morning on rounds, she is resting in bed on nasal cannula. She states she feels very "run down." The patient endorses SOB, worse with exertion. HR is moderately controlled (HR 95-110) while at rest, but will increase to 160 bpm when moving in the bed. The patient has been able to sit up on the side of the bed to eat meals, requiring only a 1 person assist. Lungs are CTA. No central or peripheral cyanosis. Patient becomes SOB during conversation, having to pause and catch her breath. +S1S2. +systolic murmur. +2 peripheral edema in lower extremities. +periorbital edema. The patient's TSH was noted to be elevated to 25, much higher than previous admissions. T3 is also elevated, T4 is normal. The patient reports she has been taking her daily Synthroid (it is dispensed to her by her SNF staff). Will discuss the patient's thyroid studies with [facility] - possible need for thyroid imaging vs Synthroid infusion. Plan for Cook placement and IV lasix for dyspnea and volume overload. Will increase patient's home dose of cardizem for better HR control. Reason For Visit: AFIB WITH RVR Physical Exam Vital Signs: Temp Pulse Resp BP Pulse Ox 98.3 F 107 H 22 H 111/70 95 01/19/19 16:27 01/19/19 16:27 01/19/19 16:27 01/19/19 16:27 01/19/19 16:27 Intake & Output 01/18/19 01/19/19 01/20/19 06:59 06:59 06:59 Intake Total 593 1107 Output Total 600 875 Balance -7 232 Weight 75 kg General appearance: PRESENT: no acute distress, morbidly obese Head exam: PRESENT: atraumatic, normocephalic Eye exam: PRESENT: conjunctiva pink, EOMI, periorbital swelling - edema, PERRLA. ABSENT: scleral icterus Ear exam: PRESENT: normal external ear exam Mouth exam: PRESENT: moist, tongue midline Neck exam: PRESENT: full ROM. ABSENT: carotid bruit, JVD, lymphadenopathy, thyromegaly Respiratory exam: PRESENT: clear to auscultation kaylee, decreased breath sounds - bilateral lower lobes, symmetrical, unlabored. ABSENT: rales, rhonchi, wheezes Cardiovascular exam: PRESENT: RRR. ABSENT: diastolic murmur, rubs, systolic murmur Pulses: PRESENT: normal radial pulses, +1 pedal pulses bilateral Vascular exam: PRESENT: normal capillary refill GI/Abdominal exam: PRESENT: distended, normal bowel sounds, soft. ABSENT: guarding, mass, organolmegaly, rebound, tenderness Rectal exam: PRESENT: deferred Extremities exam: PRESENT: full ROM, joint swelling - ankles/feet, pedal edema, +2 edema - pedal edema. ABSENT: calf tenderness, clubbing Musculoskeletal exam: PRESENT: full ROM. ABSENT: ambulatory Neurological exam: PRESENT: alert, awake, oriented to person, oriented to place, oriented to time, oriented to situation, other - HARD OF HEARING Psychiatric exam: PRESENT: appropriate affect, normal mood Skin exam: PRESENT: dry, intact, pallor, warm. ABSENT: cyanosis, rash Results Laboratory Results: 01/18/19 14:54 01/19/19 09:23 01/19/19 01/19/19 09:23 09:23 Sodium 141.7 Potassium 4.2 Chloride 107 Carbon Dioxide 25 Anion Gap 10 BUN 61 H Creatinine 1.45 H Est GFR ( Amer) 42 L Est GFR (Non-Af Amer) 35 L Glucose 230 H Calcium 8.8 Phosphorus 4.4 Magnesium 1.6 Total Bilirubin 0.6 AST 18 ALT 31 Alkaline Phosphatase 81 Total Protein 5.7 L Albumin 3.0 L Free T4 0.60 L Free T3 pg/mL 3.75 01/18/19 01/18/19 01/19/19 14:54 22:20 09:23 Troponin I 0.039 0.036 NT-Pro-B Natriuret Pep 2960 H Impressions: Chest X-Ray 01/18/19 14:18 IMPRESSION: HEART ENLARGED WITHOUT FAILURE. NO OTHER SIGNIFICANT RADIOGRAPHIC FINDING IN THE CHEST. Status: Imported from PACS Assessment and Plan - Diagnosis (1) Atrial fibrillation with RVR Is this a current diagnosis for this admission?: Yes Plan: Moderately controlled Weaned from diltiazem gtt Poor HR control on home dose of PO diltiazem, increased dosage from 240mg daily to 360mg daily (180mg BID) Monitor closely for need to restart diltiazem gtt (2) Acute on chronic diastolic CHF (congestive heart failure) Is this a current diagnosis for this admission?: Yes Plan: LVEF 65% with severe pulmonary HTN based on ECHO from September 2018 B/L lower extremity edema, abdominal and B/L hip edema Continue home regimen of Bumex, Coreg, Prinvil Will begin BID IV lasix to assist with diuresis (3) Coronary artery disease Qualifiers: Coronary Disease-Associated Artery/Lesion type: unspecified vessel or lesion type Associated angina: without angina Is this a current diagnosis for this admission?: Yes Plan: Currently without chest pain Continue daily aspirin and statin (4) Diabetes mellitus type 2 in obese Is this a current diagnosis for this admission?: Yes Plan: PMH DM type 2 Check HgbA1c in AM Continue diabetic diet Accuchecks ACHS Insulin SSI (5) Hypothyroidism Qualifiers: Hypothyroidism type: unspecified Qualified Code(s): E03.9 - Hypothyroidism, unspecified Is this a current diagnosis for this admission?: Yes Plan: PMH HYPOthyroidism Currently taking 25mcg PO Synthroid daily TSH 25 Free T4 0.3 T3 3.7 TSH significantly elevated compared to previous visits Reports significant fatigue. (+) periorbital edema Consult [facility] for recommendations - thyroid imaging, synthroid infusion and/or increasing PO dosage - Time Time Spent with patient: 15-24 minutes Medications reviewed and adjusted accordingly: Yes Anticipated discharge: SNF Within: Other - WHEN MEDICALLY STABLE - Inpatient Certification Based on my medical assessment, after consideration of the patient's comorbidities, presenting symptoms, or acuity I expect that the services needed warrant INPATIENT care.: Yes I certify that my determination is in accordance with my understanding of Medicare's requirements for reasonable and necessary INPATIENT services [42 CFR 412.3e].: Yes Medical Necessity: Significant Comorbidiites Make Outpatient Treatment Too Risky, Need For Continuous Telemetry Monitoring, Risk of Complication if Not Cared For in Hospital - Plan Summary Plan Summary: IV LASIX. COOK CATHETER. INCREASE CARDIZEM. CONSULT [facility] RE: ELEVATED TSH
--- NOTE | 2019-01-19 20:34 | Progress Note Acknowledgement ---
Progress Note Acknowledgement Progess Note Acknowledgement: I, the undersigned member of the medical staff with appropriate privileges and with supervisory authority over [ RACHEL BROWN ], a [facility] allied health professional, acknowledge that I have reviewed the progress notes entered on this patient, and in my professional judgment believe that the assessment made and/or any care evidenced was appropriate
[2019-01-19] MEDS ORDERED: INSULIN GLARGINE HUM REC ANLOG 20 UNIT SQ SCH (22:00)
[2019-01-19] MEDS: INSULIN GLARGINE,HUM.REC.ANLOG 1,000 UNIT/10 ML VIAL SUBCUT SCH (22:08)
[2019-01-19] MEDS: FUROSEMIDE INJ/PF 20 MG/2 ML SDV IV SCH (22:14)
[2019-01-19] MEDS: DILTIAZEM HCL 180 MG CAPSULE.CR PO SCH (22:15)
[2019-01-19] MEDS: ATORVASTATIN CALCIUM 40 MG TABLET PO SCH (22:16)
[2019-01-19] MEDS: MIRTAZAPINE 15 MG TABLET PO SCH (22:16)
[2019-01-20] MEDS: PANTOPRAZOLE SODIUM 40 MG TABLET.DR PO SCH (05:46)
[2019-01-20] MEDS ORDERED: LEVOTHYROXINE SODIUM 0.05 MG TABLET PO SCH (06:00)
[2019-01-20] MEDS ORDERED: LEVOTHYROXINE SODIUM 0.025 MG TABLET PO SCH (06:00)
[2019-01-20 07:20] LABS: HEMOGLOBIN 9.4 g/dL (12.0-15.5); MEAN CORPUSCULAR HEMOGLOBIN 30.1 pg (27.0-33.4); MEAN CORPUSCULAR HGB CONC 33.4 g/dL (32.0-36.0); MEAN CORPUSCULAR VOLUME 90 fl (80-97); PLATELET COUNT 166 10^3/uL (150-450); RED BLOOD COUNT 3.11 10^6/uL (3.72-5.28); RED CELL DISTRIBUTION WIDTH 18.1 % (11.5-14.0); WHITE BLOOD COUNT 9.7 10^3/uL (4.0-10.5)
[2019-01-20 07:48] LABS: ALANINE AMINOTRANSFERASE 24 U/L (9-52); ALBUMIN 2.9 g/dL (3.5-5.0); ALKALINE PHOSPHATASE 70 U/L (38-126); ANION GAP 7 (5-19); ASPARTATE AMINO TRANSFERASE 16 U/L (14-36); BILIRUBIN,DIRECT 0.4 mg/dL (0.0-0.4); BILIRUBIN,TOTAL 0.8 mg/dL (0.2-1.3); BLOOD UREA NITROGEN 62 mg/dL (7-20); CALCIUM 8.8 mg/dL (8.4-10.2); CARBON DIOXIDE 30 mmol/L (22-30); CHLORIDE 104 mmol/L (98-107); GLUCOSE 154 mg/dL (75-110); PHOSPHORUS 4.5 mg/dL (2.5-4.5); POTASSIUM 4.3 mmol/L (3.6-5.0); SODIUM 140.6 mmol/L (137-145); TOTAL PROTEIN 5.6 g/dL (6.3-8.2)
[2019-01-20] MEDS: INSULIN LISPRO 100 UNIT/ML 3 ML VIAL SUBCUT SCH ×4 (08:17→21:16)
[2019-01-20] MEDS: FLUTICASONE/VILANTEROL 100-25 MCG/DOSE IH SCH (09:40)
[2019-01-20] MEDS: FUROSEMIDE INJ/PF 20 MG/2 ML SDV IV SCH ×2 (09:41→21:23)
[2019-01-20] MEDS: HEPARIN SOD (PORCINE) 5,000 UNIT/ML 1 ML SYRINGE SUBCUT SCH ×2 (09:41→21:19)
[2019-01-20] MEDS: ASPIRIN 81 MG TABLET, ENT COATED PO SCH (09:45)
[2019-01-20] MEDS: DILTIAZEM HCL 180 MG CAPSULE.CR PO SCH ×2 (09:45→21:22)
[2019-01-20] MEDS: FERROUS SULFATE 325 MG TABLET PO SCH (09:46)
[2019-01-20] MEDS: CHOLECALCIFEROL (D3) 1,000 UNIT (25 MCG) TABLET PO SCH (09:46)
[2019-01-20] MEDS: MULTIVITAMIN TABLET PO SCH (09:46)
[2019-01-20] MEDS: SERTRALINE HCL 50 MG TABLET PO SCH (09:46)
[2019-01-20] MEDS: CARVEDILOL 12.5 MG TABLET PO SCH ×2 (09:46→21:21)
[2019-01-20] MEDS: LISINOPRIL 10 MG TABLET PO SCH (09:47)
[2019-01-20] MEDS: ASCORBIC ACID 500 MG TABLET PO SCH (09:48)
[2019-01-20] MEDS: TIOTROPIUM BROMIDE DPI 5 CAP/KIT (18 MCG/CAP) IH SCH (09:49)
[2019-01-20] MEDS: CYCLOSPORINE 0.05% OPH EMULSIO 0.4 ML DROPERETTE OU SCH ×2 (09:50→21:21)
[2019-01-20] MEDS: PREDNISONE 5 MG TABLET PO SCH ×2 (09:50→21:21)
[2019-01-20] MEDS: BUMETANIDE 1 MG TABLET PO SCH (09:53)
--- NOTE | 2019-01-20 14:35 | PDOC PROGRESS REPORT ---
Subjective Progress Note for:: 01/20/19 Subjective:: PREETI ELIZABETH is a 78 year old female with a past medical history of atrial fibrillation not on anti-coagulation, CKD, congestive heart failure, CAD with 2 prior stents, hyperlipidemia, hypertension and insulin-dependent diabetes mellitus who presented with shortness of breath. The patient was sent to [facility] by her project manager entertainment and media, Dr. Ventura, for AFIB with RVR. The patient was briefly on a diltiazem gtt, but has since been weaned. The patient was seen this morning on rounds, she is resting in bed on nasal cannula. She states she feels much better today. The patient continues to endorse SOB but states it is much better today. The patient is noted to become mildly SOB during conversation. She states this has been "going on for weeks." The patient has been able to sit up on the side of the bed to eat meals, requiring only a 1 person assist. Lungs are CTA. No central or peripheral cyanosis. +S1S2. +systolic murmur (chronic). +1 peripheral edema in lower extre mities. HR is well controlled today following increase in Cardizem dosage, she remains in AFIB. Plan to keep patient at [facility] for dyspnea at rest. Reason For Visit: AFIB WITH RVR Physical Exam Vital Signs: Temp Pulse Resp BP Pulse Ox 97.5 F 73 20 97/41 L 97 01/20/19 11:21 01/20/19 14:00 01/20/19 11:21 01/20/19 11:21 01/20/19 11:21 Intake & Output 01/19/19 01/20/19 01/21/19 06:59 06:59 06:59 Intake Total 593 1307 592 Output Total 600 2025 300 Balance -7 -718 292 Weight 75 kg 70.6 kg General appearance: PRESENT: no acute distress, obese Head exam: PRESENT: atraumatic, normocephalic Eye exam: PRESENT: conjunctiva pink, EOMI, PERRLA. ABSENT: scleral icterus Ear exam: PRESENT: normal external ear exam Mouth exam: PRESENT: moist, tongue midline Neck exam: PRESENT: full ROM. ABSENT: carotid bruit, JVD, lymphadenopathy, thyromegaly Respiratory exam: PRESENT: clear to auscultation kaylee, decreased breath sounds - bilateral lower lobes, symmetrical, other - requiring supplemental O2 via nasal cannula. ABSENT: rales, rhonchi, wheezes Cardiovascular exam: PRESENT: RRR. ABSENT: diastolic murmur, rubs, systolic murmur Pulses: PRESENT: normal radial pulses, normal dorsalis pedis pul Vascular exam: PRESENT: normal capillary refill GI/Abdominal exam: PRESENT: normal bowel sounds, soft. ABSENT: distended, guarding, mass, organolmegaly, rebound, tenderness Rectal exam: PRESENT: deferred Extremities exam: PRESENT: full ROM. ABSENT: calf tenderness, clubbing, pedal edema Musculoskeletal exam: PRESENT: full ROM. ABSENT: ambulatory - able to stand and pivot, does not ambulate. Neurological exam: PRESENT: alert, awake, oriented to person, oriented to place, oriented to time, oriented to situation Psychiatric exam: PRESENT: appropriate affect, normal mood Skin exam: PRESENT: dry, intact, warm. ABSENT: cyanosis, rash Results Laboratory Results: 01/20/19 06:47 01/20/19 06:47 01/20/19 01/20/19 06:47 06:47 WBC 9.7 RBC 3.11 L Hgb 9.4 L Hct 28.0 L MCV 90 MCH 30.1 MCHC 33.4 RDW 18.1 H Plt Count 166 Sodium 140.6 Potassium 4.3 Chloride 104 Carbon Dioxide 30 Anion Gap 7 BUN 62 H Creatinine 1.47 H Est GFR ( Amer) 41 L Est GFR (Non-Af Amer) 34 L Glucose 154 H Calcium 8.8 Phosphorus 4.5 Magnesium 1.7 Total Bilirubin 0.8 AST 16 ALT 24 Alkaline Phosphatase 70 Total Protein 5.6 L Albumin 2.9 L 01/18/19 01/18/19 01/19/19 14:54 22:20 09:23 Troponin I 0.039 0.036 NT-Pro-B Natriuret Pep 2960 H 01/20/19 06:47 Troponin I NT-Pro-B Natriuret Pep 2870 H Impressions: Chest X-Ray 01/18/19 14:18 IMPRESSION: HEART ENLARGED WITHOUT FAILURE. NO OTHER SIGNIFICANT RADIOGRAPHIC FINDING IN THE CHEST. Status: Imported from PACS Assessment and Plan - Diagnosis (1) Atrial fibrillation with RVR Is this a current diagnosis for this admission?: Yes Plan: Moderately controlled Weaned from diltiazem gtt Poor HR control on home dose of PO diltiazem, increased dosage from 240mg daily to 360mg daily (180mg BID) Better HR control today with higher dose Monitor closely for need to restart diltiazem gtt (2) Acute on chronic diastolic CHF (congestive heart failure) Is this a current diagnosis for this admission?: Yes Plan: LVEF 65% with severe pulmonary HTN based on ECHO from September 2018 Improving B/L lower extremity edema, abdominal and B/L hip edema Continue home regimen of Bumex, Coreg, Prinvil Continue BID IV lasix for now If improvement continues, will likely d/c back to [facility] tomorrow (3) Coronary artery disease Qualifiers: Coronary Disease-Associated Artery/Lesion type: unspecified vessel or lesion type Associated angina: without angina Is this a current diagnosis for this admission?: Yes Plan: Currently without chest pain Continue daily aspirin and statin (4) Diabetes mellitus type 2 in obese Is this a current diagnosis for this admission?: Yes Plan: PMH DM type 2 HgbA1c 6.8% Continue diabetic diet Accuchecks ACHS Insulin SSI (5) Hypothyroidism Qualifiers: Hypothyroidism type: unspecified Qualified Code(s): E03.9 - Hypothyroidism, unspecified Is this a current diagnosis for this admission?: Yes Plan: PMH HYPOthyroidism Currently taking 25mcg PO Synthroid daily TSH 25 Free T4 0.3 T3 3.7 TSH significantly elevated compared to previous visits (+) periorbital edema resolved Discussed with [facility] - recommends not changing medication dosage. TSH changes could be in response to acute illness. Will need to follow up with PCP to have TSH rechecked once acute illness has resolved. - Time Time Spent with patient: 15-24 minutes Medications reviewed and adjusted accordingly: Yes Anticipated discharge: SNF Within: within 24 hours - Inpatient Certification Based on my medical assessment, after consideration of the patient's comorbidities, presenting symptoms, or acuity I expect that the services needed warrant INPATIENT care.: Yes I certify that my determination is in accordance with my understanding of Medicare's requirements for reasonable and necessary INPATIENT services [42 CFR 412.3e].: Yes Medical Necessity: Need Close Monitoring Due to Risk of Patient Decompensation, Risk of Complication if Not Cared For in Hospital
[2019-01-20] MEDS: INSULIN GLARGINE,HUM.REC.ANLOG 1,000 UNIT/10 ML VIAL SUBCUT SCH (21:19)
[2019-01-20] MEDS: MIRTAZAPINE 15 MG TABLET PO SCH (21:22)
[2019-01-20] MEDS: ATORVASTATIN CALCIUM 40 MG TABLET PO SCH (21:22)
[2019-01-21] MEDS: PANTOPRAZOLE SODIUM 40 MG TABLET.DR PO SCH (05:23)
[2019-01-21] MEDS: LEVOTHYROXINE SODIUM 0.025 MG TABLET PO SCH (05:23)
[2019-01-21] MEDS: HEPARIN SOD (PORCINE) 5,000 UNIT/ML 1 ML SYRINGE SUBCUT SCH ×2 (09:12→22:13)
[2019-01-21] MEDS: FERROUS SULFATE 325 MG TABLET PO SCH (09:13)
[2019-01-21] MEDS: CHOLECALCIFEROL (D3) 1,000 UNIT (25 MCG) TABLET PO SCH (09:13)
[2019-01-21] MEDS: LISINOPRIL 10 MG TABLET PO SCH (09:13)
[2019-01-21] MEDS: INSULIN LISPRO 100 UNIT/ML 3 ML VIAL SUBCUT SCH ×4 (09:13→22:14)
[2019-01-21] MEDS: ASPIRIN 81 MG TABLET, ENT COATED PO SCH (09:13)
[2019-01-21] MEDS: CARVEDILOL 12.5 MG TABLET PO SCH ×2 (09:13→22:13)
[2019-01-21] MEDS: SERTRALINE HCL 50 MG TABLET PO SCH (09:13)
[2019-01-21] MEDS: MULTIVITAMIN TABLET PO SCH (09:13)
[2019-01-21] MEDS: ASCORBIC ACID 500 MG TABLET PO SCH (09:13)
[2019-01-21] MEDS: CYCLOSPORINE 0.05% OPH EMULSIO 0.4 ML DROPERETTE OU SCH ×2 (09:15→22:35)
[2019-01-21] MEDS: FLUTICASONE/VILANTEROL 100-25 MCG/DOSE IH SCH (09:15)
[2019-01-21] MEDS: DILTIAZEM HCL 180 MG CAPSULE.CR PO SCH ×2 (09:16→22:13)
[2019-01-21] MEDS: PREDNISONE 5 MG TABLET PO SCH ×2 (09:16→22:13)
[2019-01-21] MEDS: TIOTROPIUM BROMIDE DPI 5 CAP/KIT (18 MCG/CAP) IH SCH (09:17)
[2019-01-21] MEDS: BUMETANIDE 1 MG TABLET PO SCH (09:18)
[2019-01-21] MEDS ORDERED: FUROSEMIDE INJ/PF 40 MG/4 ML SDV IV ONE (17:05)
--- NOTE | 2019-01-21 21:43 | PDOC PROGRESS REPORT ---
Subjective Progress Note for:: 01/21/19 Subjective:: PREETI ELIZABETH is a 78 year old female with a past medical history of atrial fibrillation not on anti-coagulation, CKD, congestive heart failure, CAD with 2 prior stents, hyperlipidemia, hypertension and insulin-dependent diabetes mellitus who presented with shortness of breath. The patient was sent to [facility] by her enrollment representative, Dr. Ventura, for AFIB with RVR. The patient was briefly on a diltiazem gtt, but has since been weaned. The patient was seen this morning on rounds, she is resting in bed on nasal cannula. She states she feels much better today. Fine crackles heard in bilateral lower lobes. No central or peripheral cyanosis. +S1S2. +systolic murmur (chronic). +1 peripheral edema in lower extremities. Was receiving BID lasix, stopped last night. Will give one dose of IV lasix now and increase Bumex dose. Will check electrolytes in AM. Possible discharge in 24 hours. Plan to keep patient at [facility] for dyspnea at rest. Reason For Visit: AFIB WITH RVR Physical Exam Vital Signs: Temp Pulse Resp BP Pulse Ox 98.3 F 95 17 103/52 L 96 01/21/19 07:26 01/21/19 19:00 01/21/19 07:26 01/21/19 07:26 01/21/19 07:26 Intake & Output 01/20/19 01/21/19 01/22/19 06:59 06:59 06:59 Intake Total 1307 1641 240 Output Total 2025 1450 Balance -718 191 240 Weight 70.6 kg 73 kg General appearance: PRESENT: no acute distress, morbidly obese Head exam: PRESENT: atraumatic, normocephalic Eye exam: PRESENT: conjunctiva pink, EOMI, PERRLA. ABSENT: scleral icterus Ear exam: PRESENT: normal external ear exam Mouth exam: PRESENT: moist, tongue midline Neck exam: PRESENT: full ROM. ABSENT: carotid bruit, JVD, lymphadenopathy, thyromegaly Respiratory exam: PRESENT: crackles - bilaterally, symmetrical, unlabored. ABSENT: rales, rhonchi, wheezes Cardiovascular exam: PRESENT: RRR. ABSENT: diastolic murmur, rubs, systolic murmur Pulses: PRESENT: normal radial pulses, normal dorsalis pedis pul Vascular exam: PRESENT: normal capillary refill GI/Abdominal exam: PRESENT: normal bowel sounds, soft. ABSENT: distended, guarding, mass, organolmegaly, rebound, tenderness Rectal exam: PRESENT: deferred Extremities exam: PRESENT: full ROM. ABSENT: calf tenderness, clubbing, pedal edema Musculoskeletal exam: PRESENT: full ROM. ABSENT: ambulatory - ABLE TO PIVOT AND TURN BUT DOES NOT AMBULATE Neurological exam: PRESENT: alert, awake, oriented to person, oriented to place, oriented to time, oriented to situation Psychiatric exam: PRESENT: appropriate affect, normal mood Skin exam: PRESENT: dry, intact, warm. ABSENT: cyanosis, rash Results Laboratory Results: 01/20/19 06:47 01/20/19 06:47 01/18/19 01/18/19 01/19/19 14:54 22:20 09:23 Troponin I 0.039 0.036 NT-Pro-B Natriuret Pep 2960 H 01/20/19 06:47 Troponin I NT-Pro-B Natriuret Pep 2870 H Impressions: Chest X-Ray 01/18/19 14:18 IMPRESSION: HEART ENLARGED WITHOUT FAILURE. NO OTHER SIGNIFICANT RADIOGRAPHIC FINDING IN THE CHEST. Status: Imported from PACS Assessment and Plan - Diagnosis (1) Atrial fibrillation with RVR Is this a current diagnosis for this admission?: Yes Plan: Moderately controlled Weaned from diltiazem gtt Poor HR control on home dose of PO diltiazem, increased dosage from 240mg daily to 360mg daily (180mg BID) Better HR control today with higher dose Monitor closely for need to restart diltiazem gtt (2) Acute on chronic diastolic CHF (congestive heart failure) Is this a current diagnosis for this admission?: Yes Plan: LVEF 65% with severe pulmonary HTN based on ECHO from September 2018 Improving B/L lower extremity edema, abdominal and B/L hip edema Continue home regimen of Coreg, Prinvil Was treated with BID lasix, that was discontinued in preparation of discharge. Given her appearance of volume overload, will IV lasix X 1 for now Plan to increase Bumex dose tomorrow If improvement continues, will likely d/c back to [facility] tomorrow (3) Coronary artery disease Qualifiers: Coronary Disease-Associated Artery/Lesion type: unspecified vessel or lesion type Associated angina: without angina Is this a current diagnosis for this admission?: Yes Plan: Currently without chest pain Continue daily aspirin and statin (4) Diabetes mellitus type 2 in obese Is this a current diagnosis for this admission?: Yes Plan: PMH DM type 2 HgbA1c 6.8% Continue diabetic diet Accuchecks ACHS Insulin SSI (5) Hypothyroidism Qualifiers: Hypothyroidism type: unspecified Qualified Code(s): E03.9 - Hypothyroidism, unspecified Is this a current diagnosis for this admission?: Yes Plan: PMH HYPOthyroidism Currently taking 25mcg PO Synthroid daily TSH 25 Free T4 0.3 T3 3.7 TSH significantly elevated compared to previous visits (+) periorbital edema resolved Discussed with [facility] - recommends not changing medication dosage. TSH changes could be in response to acute illness. Will need to follow up with PCP to have TSH rechecked once acute illness has resolved. - Time Time Spent with patient: 15-24 minutes Medications reviewed and adjusted accordingly: Yes Anticipated discharge: SNF Within: within 24 hours - Inpatient Certification Based on my medical assessment, after consideration of the patient's comorbidities, presenting symptoms, or acuity I expect that the services needed warrant INPATIENT care.: Yes I certify that my determination is in accordance with my understanding of Medicare's requirements for reasonable and necessary INPATIENT services [42 CFR 412.3e].: Yes Medical Necessity: Need For Continuous Telemetry Monitoring
[2019-01-21 21:53] VITALS: BP 121/72
[2019-01-21] MEDS: MIRTAZAPINE 15 MG TABLET PO SCH (22:13)
[2019-01-21] MEDS: ATORVASTATIN CALCIUM 40 MG TABLET PO SCH (22:13)
[2019-01-21] MEDS ORDERED: INSULIN GLARGINE,HUM.REC.ANLOG 1,000 UNIT/10 ML VIAL (PYX) SUBCUT ONE (22:28)
[2019-01-21] MEDS: INSULIN GLARGINE,HUM.REC.ANLOG 1,000 UNIT/10 ML VIAL SUBCUT SCH (22:34)
[2019-01-22] MEDS: PANTOPRAZOLE SODIUM 40 MG TABLET.DR PO SCH (06:14)
[2019-01-22] MEDS: LEVOTHYROXINE SODIUM 0.025 MG TABLET PO SCH (06:14)
[2019-01-22 06:16] LABS: HEMATOCRIT 27.9 % (36.0-47.0); HEMOGLOBIN 9.5 g/dL (12.0-15.5); MEAN CORPUSCULAR HEMOGLOBIN 29.9 pg (27.0-33.4); MEAN CORPUSCULAR VOLUME 88 fl (80-97); PLATELET COUNT 191 10^3/uL (150-450); RED BLOOD COUNT 3.16 10^6/uL (3.72-5.28); RED CELL DISTRIBUTION WIDTH 17.9 % (11.5-14.0); WHITE BLOOD COUNT 9.4 10^3/uL (4.0-10.5)
[2019-01-22 06:35] LABS: ALANINE AMINOTRANSFERASE 26 U/L (9-52); ALKALINE PHOSPHATASE 81 U/L (38-126); ANION GAP 9 (5-19); ASPARTATE AMINO TRANSFERASE 19 U/L (14-36); BILIRUBIN,DIRECT 0.3 mg/dL (0.0-0.4); BILIRUBIN,TOTAL 0.5 mg/dL (0.2-1.3); BLOOD UREA NITROGEN 85 mg/dL (7-20); CALCIUM 8.6 mg/dL (8.4-10.2); CARBON DIOXIDE 27 mmol/L (22-30); CHLORIDE 105 mmol/L (98-107); GLUCOSE 157 mg/dL (75-110); PHOSPHORUS 3.6 mg/dL (2.5-4.5); POTASSIUM 4.5 mmol/L (3.6-5.0); SODIUM 141.1 mmol/L (137-145); TOTAL PROTEIN 5.8 g/dL (6.3-8.2)
[2019-01-22] MEDS: INSULIN LISPRO 100 UNIT/ML 3 ML VIAL SUBCUT SCH (08:28)
[2019-01-22] MEDS: DILTIAZEM HCL 180 MG CAPSULE.CR PO SCH (10:47)
[2019-01-22] MEDS: LISINOPRIL 10 MG TABLET PO SCH (10:47)
[2019-01-22] MEDS: FLUTICASONE/VILANTEROL 100-25 MCG/DOSE IH SCH (10:47)
[2019-01-22] MEDS: SERTRALINE HCL 50 MG TABLET PO SCH (10:47)
[2019-01-22] MEDS: ASCORBIC ACID 500 MG TABLET PO SCH (10:47)
[2019-01-22] MEDS: CYCLOSPORINE 0.05% OPH EMULSIO 0.4 ML DROPERETTE OU SCH (10:49)
[2019-01-22] MEDS: CHOLECALCIFEROL (D3) 1,000 UNIT (25 MCG) TABLET PO SCH (10:49)
[2019-01-22] MEDS: FERROUS SULFATE 325 MG TABLET PO SCH (10:49)
[2019-01-22] MEDS: CARVEDILOL 12.5 MG TABLET PO SCH (10:49)
[2019-01-22] MEDS: ASPIRIN 81 MG TABLET, ENT COATED PO SCH (10:49)
[2019-01-22] MEDS: MULTIVITAMIN TABLET PO SCH (10:49)
[2019-01-22] MEDS: PREDNISONE 5 MG TABLET PO SCH (10:50)
[2019-01-22] MEDS: BUMETANIDE 1 MG TABLET PO SCH (10:50)
[2019-01-22] MEDS: TIOTROPIUM BROMIDE DPI 5 CAP/KIT (18 MCG/CAP) IH SCH (10:51)
[2019-01-22] MEDS: HEPARIN SOD (PORCINE) 5,000 UNIT/ML 1 ML SYRINGE SUBCUT SCH (10:51)
--- NOTE | 2019-01-22 10:51 | PDOC TRANSFER SUMMARY ---
General - Admit/Disc Date/PCP Admission Date/Primary Care Provider: 01/18/19 16:23 GERSON MAY Discharge Date: 01/22/19 - Discharge Diagnosis (1) Atrial fibrillation with RVR Is this a current diagnosis for this admission?: Yes (2) Acute on chronic diastolic CHF (congestive heart failure) Is this a current diagnosis for this admission?: Yes (3) Coronary artery disease Is this a current diagnosis for this admission?: Yes (4) Diabetes mellitus type 2 in obese Is this a current diagnosis for this admission?: Yes (5) Hypothyroidism Is this a current diagnosis for this admission?: Yes - Additional Information Resuscitation Status: Full Code Home Medications: Acetaminophen [Tylenol 325 mg Tablet] 650 mg PO Q4HP PRN 11/21/18 Apremilast [Otezla] 30 mg PO Q12 11/21/18 Ascorbic Acid [Vitamin C] 500 mg PO DAILY 11/21/18 Aspirin [Ecotrin 81 mg EC Tablet] 81 mg PO DAILY 11/21/18 Atorvastatin Calcium [Lipitor 40 mg Tablet] 40 mg PO QHS 11/21/18 Calcium Carbonate/Vitamin D3 [Calcium 600 + Vit D 400 Tablet] 2 tab PO DAILY 11/21/18 Carvedilol [Coreg 12.5 mg Tablet] 12.5 mg PO Q12 11/21/18 Cholecalciferol (Vitamin D3) [Vitamin D3 1000 Unit Tablet] 1,000 unit PO DAILY 11/21/18 Cyclosporine 0.05% Oph Emulsio [Restasis 0.05% Oph Emulsion Pf 0.4 ml] 1 drop OU Q12 11/21/18 Diltiazem HCl [Cardizem Cd 240 mg Capsule.cr] 240 cap.sr PO DAILY 11/21/18 Ferrous Sulfate [Feosol 325 mg Tablet] 325 mg PO DAILY 11/21/18 Fluticasone/Vilanterol [Breo 100-25 Mcg Ellipta 14 Dose/Dpi] 1 inh IH DAILY 11/21/18 Levothyroxine Sodium [Synthroid 0.025 mg Tablet] 25 mcg PO Q6AM 11/21/18 Lisinopril [Prinivil] 20 mg PO DAILY 11/21/18 Multivitamin [Tab-A-Deana (Multiple Vitamin) Tablet] 1 tab PO DAILY 11/21/18 Pantoprazole Sodium [Protonix [address] Tablet] 40 mg PO Q6AM 11/21/18 Prednisone [Deltasone 5 mg Tablet] 5 mg PO Q12 11/21/18 Sertraline HCl [Zoloft 50 mg Tablet] 50 mg PO DAILY 11/21/18 Tiotropium [place] [Spiriva Handihaler 5 Cap/Kit (18 Mcg/Cap)] 1 cap IH DAILY 11/21/18 Vit C/E/Zn/Coppr/Lutein/Zeaxan [Preservision Areds 2 Softgel] 2 each PO DAILY 11/21/18 Bumetanide [Bumex 2 mg Tablet] 1 tab PO DAILY 30 Days #60 tablet 12/03/18 Bismuth Subsalicylate [Maalox] 20 ml PO DAILYP PRN 01/18/19 Insulin Glargine,Hum.rec.anlog [Basaglar Kwikpen U-100] 20 unit SQ QHS 01/18/19 Insulin Lispro [Humalog Insulin (Lispro) 100 unit/mL] 0 unit SUBCUT .SLIDING SCALE 01/18/19 Melatonin 5 mg PO QHS 01/18/19 Mirtazapine 7.5 mg PO QHS 01/18/19 History of Present Illness Admission Date/PCP: 01/18/19 16:23 GERSON MAY History of Present Illness: PREETI ELIZABETH is a 78 year old female with a past medical history of atrial fibrillation not on anti-coagulation, CKD, congestive heart failure, CAD with 2 prior stents, hyperlipidemia, hypertension and insulin-dependent diabetes mellitus who presented with shortness of breath. Patient has had multiple admissions to CHF exacerbation and A. fib with RVR. She says that she does have chronic SOB but feels that she feels he is slightly short of breath more than her baseline in the past 5 to 7 days. She says that she does have some chest tightness but says that this is chronic and she does not have any chest pain at this time. She was referred by her PCP to Dr. Ventura, cardiology. She was seeing him earlier today and was noted to be in A. fib with RVR hence was sent from the [facility] to the ER. She has been started on Cardizem drip. Upon encounter, she appears comfortable. Currenlty on cardizem drip with a heart rate in the 110s to 120s. She denies shortness of breath at this time. As mentioned, she says that her chest tightness is chronic and is nothing new. When asked why she is not on anticoagulation, she says that she has a history of GI bleed manifesting as black stools and says that it was really not determined where she was bleeding from hence was not placed on a NOAC. Hospital Course Hospital Course: PREETI ELIZABETH is a 78 year old female with a past medical history of atrial fibrillation not on anti-coagulation, CKD, congestive heart failure, CAD with 2 prior stents, hyperlipidemia, hypertension and insulin-dependent diabetes mellitus who presented with shortness of breath. The patient was sent to [facility] by her semiconductor wafer inspector, Dr. Ventura, for AFIB with RVR. The patient was briefly on a diltiazem gtt, but has since been weaned. Poor HR control on home dose of PO diltiazem, increased dosage from 240mg daily to 360mg daily (180mg BID). Better HR control with higher dose, recommend continuing after discharge. Patient will need to closely follow up with semiconductor wafer inspector. LVEF 65% with severe pulmonary HTN based on ECHO from September 2018. The patient presented with significant B/L lower extremity edema, abdominal and B/L hip edema. She was treated with BID lasix IV in addition to her home dose of Bumex. The patient now appears relatively euvolemic. Plan to send back to [facility] with a higher dose of Bumex (1mg-->2mg daily). For further information regarding the patient's hospitalization, please refer to the EMR. Physical Exam Vital Signs: Temp Pulse Resp BP Pulse Ox 98.3 F 73 20 121/72 95 01/21/19 20:40 01/22/19 07:00 01/21/19 20:40 01/21/19 20:40 01/21/19 20:40 Intake & Output 01/21/19 01/22/19 01/23/19 06:59 06:59 06:59 Intake Total 1641 462 Output Total 1450 1450 Balance 191 -988 Weight 73 kg 73.9 kg General appearance: PRESENT: no acute distress, morbidly obese Head exam: PRESENT: atraumatic, normocephalic Eye exam: PRESENT: conjunctiva pink, EOMI, PERRLA. ABSENT: scleral icterus Ear exam: PRESENT: normal external ear exam Mouth exam: PRESENT: moist, tongue midline Neck exam: PRESENT: full ROM. ABSENT: carotid bruit, JVD, lymphadenopathy, thyromegaly Respiratory exam: PRESENT: clear to auscultation kaylee, symmetrical, unlabored. ABSENT: rales, rhonchi, wheezes Cardiovascular exam: PRESENT: RRR. ABSENT: diastolic murmur, rubs, systolic murmur Pulses: PRESENT: normal radial pulses, normal dorsalis pedis pul Vascular exam: PRESENT: normal capillary refill GI/Abdominal exam: PRESENT: normal bowel sounds, soft. ABSENT: distended, guarding, mass, organolmegaly, rebound, tenderness Rectal exam: PRESENT: deferred Extremities exam: PRESENT: full ROM. ABSENT: calf tenderness, clubbing, pedal edema Musculoskeletal exam: PRESENT: full ROM. ABSENT: ambulatory - ABLE TO STAND AND PIVOT. OTHERWISE, USES WHEELCHAIR Neurological exam: PRESENT: alert, awake, oriented to person, oriented to place, oriented to time, oriented to situation Psychiatric exam: PRESENT: appropriate affect, normal mood Skin exam: PRESENT: dry, intact, warm. ABSENT: cyanosis, rash Results Laboratory Results: 01/22/19 05:41 01/22/19 05:41 01/22/19 01/22/19 05:41 05:41 WBC 9.4 RBC 3.16 L Hgb 9.5 L Hct 27.9 L MCV 88 MCH 29.9 MCHC 34.0 RDW 17.9 H Plt Count 191 Sodium 141.1 Potassium 4.5 Chloride 105 Carbon Dioxide 27 Anion Gap 9 BUN 85 H Creatinine 1.69 H Est GFR ( Amer) 35 L Est GFR (Non-Af Amer) 29 L Glucose 157 H Calcium 8.6 Phosphorus 3.6 Magnesium 1.7 Total Bilirubin 0.5 AST 19 ALT 26 Alkaline Phosphatase 81 Total Protein 5.8 L Albumin 3.0 L 01/18/19 01/18/19 01/19/19 14:54 22:20 09:23 Troponin I 0.039 0.036 NT-Pro-B Natriuret Pep 2960 H 01/20/19 01/22/19 06:47 05:41 Troponin I NT-Pro-B Natriuret Pep 2870 H 2300 H Impressions: Chest X-Ray 01/18/19 14:18 IMPRESSION: HEART ENLARGED WITHOUT FAILURE. NO OTHER SIGNIFICANT RADIOGRAPHIC FINDING IN THE CHEST. Status: Imported from PACS Transfer Plan - Time Spent with Patient Time spent with patient: Greater than 30 Minutes Qualifiers - * PATIENT BEING DISCHARGED WITH ANY OF THE FOLLOWING DIAGNOSIS: No Acute Heart Failure - Is this a Heart Failure Patient?: Yes Documentation of LVEF assessment?: Yes LVEF < 40%?: No- if no continue to question #3 3. Anticoagulant therapy for permanect/persistent/paraoxysmal Afib or Aflutter: N/A Reason(s) not discharged on anticoagulant therapy for permanect/persistent/paraoxysmal Afib or Aflutter: Risk for bleeding - HISTORY OF GI BLEED, Repeated falls/unsteady gait Plan Time Spent: Greater than 30 Minutes
[2019-01-23] MEDS ORDERED: BUMETANIDE 1 MG TABLET PO SCH (10:00)
== END 2019-01-22 13:57 ==
LOC: ER 14:04 → EH 16:23 → INTOOBSV 16:23 → 3N 19:18 → 4W 01-19 21:17 → 3S 01-21 18:37
PROVIDERS: ADMIT Internal Medicine; ATTEND Internal Medicine
DX: I13.0 Hypertensive heart and chronic kidney disease with heart failure and stage 1 through stage 4 chronic kidney disease, or unspecified chronic kidney disease (principal); I48.91 Unspecified atrial fibrillation; I50.33 Acute on chronic diastolic (congestive) heart failure; E11.22 Type 2 diabetes mellitus with diabetic chronic kidney disease; N18.9 Chronic kidney disease, unspecified; D63.8 Anemia in other chronic diseases classified elsewhere; E03.9 Hypothyroidism, unspecified; I25.10 Atherosclerotic heart disease of native coronary artery without angina pectoris; Z95.5 Presence of coronary angioplasty implant and graft; J44.9 Chronic obstructive pulmonary disease, unspecified; E78.5 Hyperlipidemia, unspecified; I10 Essential (primary) hypertension; K21.9 Gastro-esophageal reflux disease without esophagitis; M19.90 Unspecified osteoarthritis, unspecified site; L40.9 Psoriasis, unspecified; Z79.82 Long term (current) use of aspirin; Z79.899 Other long term (current) drug therapy; Z79.4 Long term (current) use of insulin; Z90.710 Acquired absence of both cervix and uterus; Z88.0 Allergy status to penicillin; Z88.8 Allergy status to other drugs, medicaments and biological substances
CPT/HCPCS: 93005; 96376; 99285; 96365; 36415 ×4; 84439; 82962 ×5; 83735 ×3; 84100 ×3; 84443; 85025; 85027 ×2; 80053 ×4; 84484; 84481; 83036; 83880 ×3; 71045; 93010; A9270 ×56; J1644 ×5; J1160; J3490 ×12; J1940 ×4; G0378; J1815; J7512

== ENCOUNTER 2019-04-09 04:32 | Emergency (ER) | payer MEDICARE, MEDICAID ==
[2019-04-09 06:16] LABS: APPEARANCE,URINE CLEAR; BILIRUBIN,URINE NEGATIVE (NEGATIVE); COLOR,URINE YELLOW; GLUCOSE, URINE NEGATIVE (NEGATIVE); KETONES,URINE NEGATIVE (NEGATIVE); LEUKOCYTE ESTERASE,URINE NEGATIVE (NEGATIVE); NITRITE,URINE NEGATIVE (NEGATIVE); PROTEIN,URINE 100 mg/dL (NEGATIVE); URINE SPECIFIC GRAVITY 1.015; UROBILINOGEN,URINE NEGATIVE mg/dL (<2.0)
[2019-04-09 06:32] LABS: ADD MANUAL MICROSCOPIC YES
[2019-04-09 06:33] LABS: WBC,URINE 0-1 /HPF
--- NOTE | 2019-04-09 07:01 | ER Document Report ---
ED General - General Chief Complaint: Urinary Retention Stated Complaint: URINARY PROBLEM Time Seen by Provider: 04/09/19 06:36 Primary Care Provider: GERSON MAY MD [Primary Care Provider] - Follow up as needed TRAVEL OUTSIDE OF THE [place] IN LAST 30 DAYS: No - HPI Patient complains to provider of: decreased urine/cough Notes: 78 y/o presenting to ED for evaluation of decreased urine output and mildly productive cough no fever she denies vomiting or diarrhea she is currently at a nursing facility and reports her symptoms have been ongoing for 1-2 days and worsening she is primarily concerned about the decreased urine output as she thinks her k idneys are failing - Related Data Allergies/Adverse Reactions: methotrexate [Methotrexate] Allergy (Verified 11/27/18 11:52) Penicillins Allergy (Verified 11/27/18 11:52) Past Medical History - Social History Smoking Status: Never Smoker Family History: Reviewed & Not Pertinent, CAD Patient has suicidal ideation: No Patient has homicidal ideation: No - Past Medical History Cardiac Medical History: Reports: Hx Atrial Fibrillation, Hx Congestive Heart Failure, Hx Coronary Artery Disease - With 2 stents in the past, Hx Hypercholesterolemia, Hx Hypertension Pulmonary Medical History: Reports: Hx COPD, Hx Pneumonia, Hx Respiratory Failure Denies: Hx Tuberculosis Neurological Medical History: Denies: Hx Migraine, Hx Seizures Endocrine Medical History: Reports: Hx Diabetes Mellitus Type 2 Renal/ Medical History: Denies: Hx End Stage Renal Disease, Hx Peritoneal D ialysis GI Medical History: Reports: Hx Gastroesophageal Reflux Disease Musculoskeletal Medical History: Reports Hx Arthritis Skin Medical History: Reports Hx Psoriasis Psychiatric Medical History: Reports: Hx Depression Denies: Hx Bipolar Disorder Past Surgical History: Reports: Hx Cardiac Catheterization, Hx Herniorrhaphy, Hx Hysterectomy. Denies: Hx Pacemaker - Immunizations Immunizations up to date: Yes Hx Diphtheria, Pertussis, Tetanus Vaccination: Yes Review of Systems - Review of Systems Constitutional: No symptoms reported EENT: No symptoms reported Cardiovascular: No symptoms reported Respiratory: Cough Gastrointestinal: No symptoms reported Genitourinary: Other - decreased urine output Female Genitourinary: No symptoms reported Musculoskeletal: No symptoms reported Skin: No symptoms reported Hematologic/Lymphatic: No symptoms reported Neurological/Psychological: No symptoms reported Physical Exam - Vital signs Vitals: Temp Pulse Resp BP Pulse Ox 98.0 F 112 H 18 125/66 96 04/09/19 04:42 04/09/19 04:42 04/09/19 04:42 04/09/19 04:42 04/09/19 04:42 Interpretation: Normal - General General appearance: Appears well, Alert - HEENT Head: Normocephalic, Atraumatic Eyes: Normal Pupils: PERRL - Respiratory Respiratory status: No respiratory distress Chest status: Nontender Breath sounds: Wheezing - mild expiratory wheezing Chest palpation: Normal - Cardiovascular Rhythm: Regular Heart sounds: Normal auscultation Murmur: No - Abdominal Inspection: Normal Distension: No distension Bowel sounds: Normal Tenderness: Nontender Organomegaly: No organomegaly - Back Back: Normal, Nontender - Extremities General upper extremity: Normal inspection, Nontender, Normal color, Normal ROM, Normal temperature General lower extremity: Normal inspection, Nontender, Normal color, Normal ROM, Normal temperature, Normal weight bearing. No: Carla's sign - Neurological Neuro grossly intact: Yes Cognition: Normal Orientation: AAOx4 [place] Coma Scale Eye Opening: Spontaneous [place] Coma Scale Verbal: Oriented [place] Coma Scale Motor: Obeys Commands [place] Coma Scale Total: 15 Speech: Normal Motor strength normal: LUE, RUE, LLE, RLE Sensory: Normal - Psychological Associated symptoms: Normal affect, Normal mood - Skin Skin Temperature: Warm Skin Moisture: Dry Skin Color: Normal Course - Re-evaluation Re-evalutation: 04/09/19 10:05 patient's workup in the ED only remarkable for mild elevation in lipase and mild PARDEEP likely related to dehydration IVF bolus given patient has a-fib on ekg but has a h/o this and is not anticoagulated due to history of GI bleed she has no hypoxia to suggest PE CXR is clear CT abd/pelvis ok recommend recheck of bmp within a week at nursing facility - Vital Signs Vital signs: Temp Pulse Resp BP Pulse Ox 98.6 F 96 16 128/80 H 97 04/09/19 09:00 04/09/19 09:00 04/09/19 09:00 04/09/19 09:00 04/09/19 09:00 - Laboratory Result Diagrams: 04/09/19 07:58 04/09/19 07:58 Laboratory results interpreted by me: 04/09/19 04/09/19 04/09/19 05:55 07:58 07:58 RBC 3.18 L Hgb 9.2 L Hct 28.1 L RDW 19.2 H Lymph % (Auto) 5.8 L Absolute Neuts (auto) 9.0 H Seg Neutrophils % 88.9 H BUN 78 H Creatinine 2.38 H Est GFR ( Amer) 24 L Est GFR (MDRD) Non-Af 20 L Glucose 185 H Calcium 8.2 L Total Protein 6.1 L Albumin 3.3 L Lipase 498.7 H Urine Protein 100 H Urine Ascorbic Acid 40 H - Diagnostic Test Radiology reviewed: Reports reviewed - CT abd/pelv and CXR - EKG Interpretation by Me Additional EKG results interpreted by me: 04/09/19 10:06 A-fib with rate of 105. no ST segment changes. poor R wave progression with Q in septal leads Discharge - Discharge Clinical Impression: Dehydration, Cough Condition: Stable Disposition: HOME-SNF (ED ONLY) Instructions: Dehydration ([facility]) Additional Instructions: please have a BMP rechecked within 1 week Referrals: GERSON MAY MD [Primary Care Provider] - Follow up as needed
[2019-04-09 08:07] LABS: ABSOLUTE LYMPHOCYTES (AUTO) 0.6 10^3/uL (0.5-4.7); ABSOLUTE MONOCYTES (AUTO) 0.5 10^3/uL (0.1-1.4); BASOPHILS % (AUTO) 0.1 % (0-2); EOSINOPHILS % (AUTO) 0.2 % (0-6); HEMATOCRIT 28.1 % (36.0-47.0); HEMOGLOBIN 9.2 g/dL (12.0-15.5); LYMPHOCYTES % (AUTO) 5.8 % (13-45); MEAN CORPUSCULAR HEMOGLOBIN 28.8 pg (27.0-33.4); MEAN CORPUSCULAR HGB CONC 32.7 g/dL (32.0-36.0); MEAN CORPUSCULAR VOLUME 88 fl (80-97); PLATELET COUNT 238 10^3/uL (150-450); RED BLOOD COUNT 3.18 10^6/uL (3.72-5.28); RED CELL DISTRIBUTION WIDTH 19.2 % (11.5-14.0); SEGMENTED NEUTROPHILS % (AUTO) 88.9 % (42-78); TOTAL CELLS COUNTED % (AUTO) 100 %; WHITE BLOOD COUNT 10.2 10^3/uL (4.0-10.5)
--- NOTE | 2019-04-09 08:15 | RADIOLOGY REPORT (SQ) ---
EXAM DESCRIPTION: CHEST SINGLE VIEW COMPLETED DATE/TIME: 04/09/2019 7:58 am REASON FOR STUDY: cough COMPARISON: 01/18/2019 EXAM PARAMETERS: NUMBER OF VIEWS: One view. TECHNIQUE: Single frontal radiographic view of the chest acquired. RADIATION DOSE: NA LIMITATIONS: None. FINDINGS: LUNGS AND PLEURA: No opacities, masses or pneumothorax. No pleural effusion. MEDIASTINUM AND HILAR STRUCTURES: No masses. Contour normal. HEART AND VASCULAR STRUCTURES: Cardiomegaly. BONES: No acute findings. HARDWARE: None in the chest. OTHER: None. IMPRESSION: Cardiomegaly without acute abnormality of the lungs in AP projection. TECHNICAL DOCUMENTATION: JOB ID: [id number] [employer]- All Rights Reserved Reading location - IP/workstation name: [email or web address]
--- NOTE | 2019-04-09 08:28 | RADIOLOGY REPORT (SQ) ---
EXAM DESCRIPTION: CT ABD/PELVIS NO ORAL OR IV COMPLETED DATE/TIME: 04/09/2019 7:48 am REASON FOR STUDY: calculus of ureter COMPARISON: CT of the abdomen pelvis from 11/27/2018. TECHNIQUE: CT scan of the abdomen and pelvis performed without intravenous or oral contrast. Images reviewed with lung, soft tissue, and bone windows. Reconstructed coronal and sagittal MPR images revi ewed. All images stored on PACS. All CT scanners at this facility use dose modulation, iterative reconstruction, and/or weight based d osing when appropriate to reduce radiation dose to as low as reasonably achievable (ALARA). [facility]: Dose Right [facility]: CareDose [facility]: Dose Right [facility]: Teradose 4D [facility]: Smart TensorComm RADIATION DOSE: CT Rad equipment meets quality standard of care and radiation dose reduction techniq ues were employed. CTDIvol: 12.9 mGy. DLP: 667 mGy-cm.mGy. LIMITATIONS: None. FINDINGS: LOWER CHEST: Severe atherosclerotic calcification of the coronary arteries and cardiomegal y. There is no pericardial effusion, basilar consolidation, or pleural effusion NON-CONTRASTED LIVER, SPLEEN, ADRENALS: Evaluation is limited due to the absence of intravenous contr ast. The liver morphology is non cirrhotic. There is no CT evidence of hepatic steatosis. The sple en is normal in size. The 12 x 11 mm right adrenal nodule is stable. There is no abnormality of the left adrenal gland PANCREAS: Unchanged calcifications in the region of the pancreatic head. There is no acute abnormali ty of the pancreatic parenchymal or peripancreatic space. GALLBLADDER: Cholelithiasis without other ancillary findings on CT to suggest an acute cholecystitis. RIGHT KIDNEY AND URETER: Evaluation is limited due to the absence of intravenous contrast. There is no hydronephrosis, nephrolithiasis, hydroureter or ureterolithiasis. LEFT KIDNEY AND URETER: Evaluation is limited due to the absence of intravenous contrast. There is n o hydronephrosis, nephrolithiasis, hydroureter or ureterolithiasis. AORTA AND RETROPERITONEUM: There is an ovoid 2.1 x 1.8 cm structure posterior to the right renal vein (image 31 of series 3) that contains a focal calcification; compared to the CT from 11/27/2018 the siz e of the finding and associated adjacent fat stranding are unchanged but the calcification is new. There is focal ectasia of the infrarenal abdominal aorta measuring up to 2.2 cm in AP diameter. BOWEL AND PERITONEAL CAVITY: Colonic diverticulosis without other ancillary findings to suggest an ac [place] diverticulitis. No obstruction, bowel wall thickening, or pericolonic/perienteric inflammation. APPENDIX: Normal. PELVIS, BLADDER, AND ABDOMINAL WALL:The urinary bladder is decompressed and there is a Cook catheter in place ; the air within the bladder lumen is presumed to be related to the Cook catheter. There are calcified uterine fibroids. There is no adnexal mass, pelvic adenopathy or free fluid BONES: Unchanged compression deformity of the superior endplate of the L2 vertebral body with less th an 25% loss of the vertebral body height and no retropulsion. There is no acute osseous abnormality. OTHER: No other finding. IMPRESSION: 1. No acute intra-abdominal abnormality. 2. Cholelithiasis without other ancillary findings to suggest an acute cholecystitis. 3. Colonic diverticulosis without other ancillary findings to suggest an acute diverticulitis. 4. Stable ovoid lesion posterior to the right renal vein (image 31 of series 3) that is stable in si ze from the prior CT but has developed a new focal calcification. 5. Other findings as detailed above. COMMENT: Quality ID # [id number]: Final reports with documentation of one or more dose reduction techniques (e.g., Automated exposure control, adjustment of the mA and/or kV according to patient size, use of iterative reconstruction technique) TECHNICAL DOCUMENTATION: JOB ID: [id number] [employer]- All Rights Reserved Reading location - IP/workstation name: [email or web address]
[2019-04-09 08:31] LABS: ALBUMIN 3.3 g/dL (3.5-5.0); ALKALINE PHOSPHATASE 94 U/L (38-126); ANION GAP 10 (5-19); ASPARTATE AMINO TRANSFERASE 26 U/L (14-36); BILIRUBIN,DIRECT 0.2 mg/dL (0.0-0.4); BILIRUBIN,TOTAL 0.2 mg/dL (0.2-1.3); BLOOD UREA NITROGEN 78 mg/dL (7-20); CALCIUM 8.2 mg/dL (8.4-10.2); CARBON DIOXIDE 28 mmol/L (22-30); CHLORIDE 104 mmol/L (98-107); GLUCOSE 185 mg/dL (75-110); POTASSIUM 4.4 mmol/L (3.6-5.0); TOTAL PROTEIN 6.1 g/dL (6.3-8.2)
--- NOTE | 2019-04-09 08:53 | EKG REPORT ---
SEVERITY:- ABNORMAL ECG - SINUS TACHYCARDIA WITH IRREGULAR RATE 72-139 ANTERIOR INFARCT, OLD : Confirmed by: Viviana Kaplan MD 09-Apr-2019 08:52:43
[2019-04-09] MEDS ORDERED: NORMAL SALINE 1000 ML 1,000 ML IV ONE (08:57)
[2019-04-09 12:10] VITALS: BP 117/68
== END 2019-04-09 12:10 ==
LOC: ER 04:32
DX: E86.0 Dehydration (principal); R05 Cough; I48.91 Unspecified atrial fibrillation; I25.10 Atherosclerotic heart disease of native coronary artery without angina pectoris; I10 Essential (primary) hypertension; J44.9 Chronic obstructive pulmonary disease, unspecified; E11.9 Type 2 diabetes mellitus without complications; Z95.5 Presence of coronary angioplasty implant and graft; Z88.8 Allergy status to other drugs, medicaments and biological substances; Z88.0 Allergy status to penicillin
CPT/HCPCS: 93005; 99284; 96360; 51701; 36415; 83690; 85025; 80053; 81001; 84484; 83605; 71045; 74176; 93010; J7030

== ENCOUNTER 2019-04-20 15:53 | Inpatient (IN) | payer MEDICARE, MEDICAID ==
--- NOTE | 2019-04-20 16:11 | ER Document Report ---
ED Medical Screen (RME) - General Chief Complaint: Cough Stated Complaint: COUGH Time Seen by Provider: 04/20/19 16:01 Primary Care Provider: GERSON MAY MD [Primary Care Provider] - Follow up as needed Mode of Arrival: Wheelchair Information source: Patient Notes: 78-year-old female with history of A. fib presents emergency department with difficulty breathing cough for the past week. She reports she is been evaluated by multiple providers and still coughing. Patient O2 sat 95% heart rate 110- 148. Patient reports she is very tired. I have greeted and performed a rapid initial assessment of this patient. A comprehensive ED assessment and evaluation of the patient, analysis of test results and completion of the medical decision making process will be conducted by additional ED providers. Dictation of this chart was performed using voice recognition software; therefore, there may be some unintended grammatical errors. TRAVEL OUTSIDE OF THE [place] IN LAST 30 DAYS: No - Related Data Allergies/Adverse Reactions: methotrexate [Methotrexate] Allergy (Verified 04/20/19 16:05) Penicillins Allergy (Verified 04/20/19 16:05) Past Medical History - Past Medical History Cardiac Medical History: Reports: Hx Atrial Fibrillation, Hx Congestive Heart Failure, Hx Coronary Artery Disease - With 2 stents in the past, Hx Hypercholesterolemia, Hx Hypertension Pulmonary Medical History: Reports: Hx COPD, Hx Pneumonia, Hx Respiratory Failure Denies: Hx Tuberculosis Neurological Medical History: Denies: Hx Migraine, Hx Seizures Endocrine Medical History: Reports: Hx Diabetes Mellitus Type 2 Renal/ Medical History: Denies: Hx End Stage Renal Disease, Hx Peritoneal Dialysis GI Medical History: Reports: Hx Gastroesophageal Reflux Disease Musculoskeltal Medical History: Reports Hx Arthritis Skin Medical History: Reports Hx Psoriasis Psychiatric Medical History: Reports: Hx Depression Denies: Hx Bipolar Disorder Past Surgical History: Reports: Hx Cardiac Catheterization, Hx Herniorrhaphy, Hx Hysterectomy. Denies: Hx Pacemaker - Immunizations Immunizations up to date: Yes Hx Diphtheria, Pertussis, Tetanus Vaccination: Yes History of Influenza Vaccine for 04/2017 - 09/2017 Season: Yes Influenza Administration Date for 04/2017 - 09/2017 Season: 06/06/17 Physical Exam - Vital signs Vitals: Temp Pulse Resp BP Pulse Ox 99.0 F 128 H 24 H 140/125 H 99 04/20/19 16:02 04/20/19 16:02 04/20/19 16:02 04/20/19 16:02 04/20/19 16:02 Course - Vital Signs Vital signs: Temp Pulse Resp BP Pulse Ox 99.0 F 128 H 24 H 140/125 H 99 04/20/19 16:02 04/20/19 16:02 04/20/19 16:02 04/20/19 16:02 04/20/19 16:02 Doctor's Discharge - Discharge Referrals: GERSON MAY MD [Primary Care Provider] - Follow up as needed
[2019-04-20 17:05] LABS: HEMATOCRIT 29.9 % (36.0-47.0); HEMOGLOBIN 9.2 g/dL (12.0-15.5); MEAN CORPUSCULAR HGB CONC 30.9 g/dL (32.0-36.0); MEAN CORPUSCULAR VOLUME 91 fl (80-97); PLATELET COUNT 211 10^3/uL (150-450); RED CELL DISTRIBUTION WIDTH 20.1 % (11.5-14.0); WHITE BLOOD COUNT 13.7 10^3/uL (4.0-10.5)
--- NOTE | 2019-04-20 17:12 | ER Document Report ---
ED General - General Chief Complaint: Cough Stated Complaint: COUGH Time Seen by Provider: 04/20/19 16:01 Primary Care Provider: GERSON MAY MD [Primary Care Provider] - Follow up as needed Mode of Arrival: Wheelchair TRAVEL OUTSIDE OF THE [place] IN LAST 30 DAYS: No - HPI Notes: 78-year-old female history of atrial fibrillation, she is uncertain if she is anticoagulated, presents with cough dyspnea not feeling well. Patient seen by physician in triage prior to my evaluation. Describes a week and a half or so of increasingly severe dyspnea, cough, nonproductive. Some equivocal lower extremity edema. No associated chest pain. Does not think she has had a fever. Moderate intensity, nonradiating, gradual onset. Worse with exertion. No other modifying factors, no other associated symptoms, no other provocative or palliative factors. - Related Data Allergies/Adverse Reactions: methotrexate [Methotrexate] Allergy (Verified 04/20/19 16:05) Penicillins Allergy (Verified 04/20/19 16:05) Past Medical History - General Information source: Patient - Social History Smoking Status: Never Smoker Chew tobacco use (# tins/day): No Frequency of alcohol use: None Drug Abuse: None Family History: Reviewed & Not Pertinent, CAD Patient has suicidal ideation: No Patient has homicidal ideation: No - Past Medical History Cardiac Medical History: Reports: Hx Atrial Fibrillation, Hx Congestive Heart Failure, Hx Coronary Artery Disease - With 2 stents in the past, Hx Hypercholesterolemia, Hx Hypertension Pulmonary Medical History: Reports: Hx COPD, Hx Pneumonia, Hx Respiratory F ailure Denies: Hx Tuberculosis Neurological Medical History: Denies: Hx Migraine, Hx Seizures Endocrine Medical History: Reports: Hx Diabetes Mellitus Type 2 Renal/ Medical History: Denies: Hx End Stage Renal Disease, Hx Peritoneal Dialysis GI Medical History: Reports: Hx Gastroesophageal Reflux Disease Musculoskeletal Medical History: Reports Hx Arthritis Skin Medical History: Reports Hx Psoriasis Psychiatric Medical History: Reports: Hx Depression Denies: Hx Bipolar Disorder Past Surgical History: Reports: Hx Cardiac Catheterization, Hx Herniorrhaphy, Hx Hysterectomy. Denies: Hx Pacemaker - Immunizations Immunizations up to date: Yes Hx Diphtheria, Pertussis, Tetanus Vaccination: Yes Review of Systems - Review of Systems Notes: Review of systems as in the history of present illness, otherwise negative x 10 systems. Physical Exam - Vital signs Vitals: Temp Pulse Resp BP Pulse Ox 99.0 F 128 H 24 H 140/125 H 99 04/20/19 16:02 04/20/19 16:02 04/20/19 16:02 04/20/19 16:02 04/20/19 16:02 - Notes Notes: General: Well developed . Chronically ill in appearance HEENT: Normocephalic, atraumatic. Pupils equal round reactive to light. No JVD. Chest: No trauma. Respiratory: Fair air exchange, scattered rhonchi, mild basilar crackles Cardiac: Regular rhythm. No murmurs or gallops. Abdomen: Soft, benign. Nondistended. Nontender. Back: No asymmetry or gross abnormality. Motor: Grossly normal power and tone. Neurologic: Alert, nonfocal. Cranial nerves II-12 are intact. Sensation intact. Vascular: Well perfused. Normal peripheral pulses. Skin: No petechiae or purpura. Extremities: Moderate pitting edema Course - Re-evaluation Re-evalutation: 04/20/19 18:19 Labs reviewed. CBC shows mild leukocytosis. Chemistry show chronic renal insufficiency with no change of her baseline, normal potassium. Troponin is borderline elevated at 0.40. Coags are pending, TSH free T4 pending will be followed by the hospitalist. Chest x-ray shows no acute pneumonia or acute ab normality. Patient's blood pressure has been borderline in the mid 90s to low 100 systolic. In light of her current blood pressure 93 systolic, I have some concerns over the potential for hypotension with the use of diltiazem or diltiazem drip. I spoke with hospitalist to arrange admission to the [facility]. At their request I am loading 0.125 mg of digoxin. Cardiac proBNP was substantially elevated 04/20/19 18:20 - Vital Signs Vital signs: Temp Pulse Resp BP Pulse Ox 99.0 F 128 H 24 H 140/125 H 99 04/20/19 16:02 04/20/19 16:02 04/20/19 16:02 04/20/19 16:02 04/20/19 16:02 - Laboratory Result Diagrams: 04/20/19 16:39 04/20/19 16:39 Laboratory results interpreted by me: 04/20/19 04/20/19 04/20/19 16:39 16:39 16:39 WBC 13.7 H RBC 3.30 L Hgb 9.2 L Hct 29.9 L MCHC 30.9 L RDW 20.1 H Seg Neuts % (Manual) 95 H Lymphocytes % (Manual) 3 L Monocytes % (Manual) 2 L Abs Neuts (Manual) 13.0 H Abs Lymphs (Manual) 0.4 L BUN 75 H Creatinine 2.31 H Est GFR ( Amer) 25 L Est GFR (MDRD) Non-Af 20 L Glucose 139 H NT-Pro-B Natriuret Pep 2320 H Total Protein 6.1 L Albumin 3.3 L - Transfer of Care Notes: 04/20/19 17:11 78-year-old female presents with dyspnea edema and after mentioned symptoms. Broad frontal diagnosis includes decompensated heart failure, pneumonia, bronchitis or viral illness, most likely silent ischemia. Currently labs are pending, will assess cardiac BNP, x-ray, reevaluate. Critical Care Note - Critical Care Note Total time excluding time spent on procedures (mins): 35 Comments: Includes administration of vasoactive medications and management of A. fib RVR. Discharge - Discharge Clinical Impression: A-fib Qualifiers: Atrial fibrillation type: paroxysmal Qualified Code(s): I48.0 - Paroxysmal atrial fibrillation Condition: Serious Disposition: ADMITTED INPATIENT Admitting Provider: Delores (Hospitalist) Unit Admitted: IMCU Referrals: GERSON MAY MD [Primary Care Provider] - Follow up as needed
[2019-04-20 17:20] LABS: ALBUMIN 3.3 g/dL (3.5-5.0); ALKALINE PHOSPHATASE 92 U/L (38-126); ANION GAP 9 (5-19); ASPARTATE AMINO TRANSFERASE 32 U/L (14-36); BILIRUBIN,DIRECT 0.2 mg/dL (0.0-0.4); BILIRUBIN,TOTAL 0.4 mg/dL (0.2-1.3); BLOOD UREA NITROGEN 75 mg/dL (7-20); CALCIUM 9.3 mg/dL (8.4-10.2); CARBON DIOXIDE 28 mmol/L (22-30); CHLORIDE 106 mmol/L (98-107); CREATINE KINASE 49 U/L (30-135); GLUCOSE 139 mg/dL (75-110); POTASSIUM 4.8 mmol/L (3.6-5.0); TOTAL PROTEIN 6.1 g/dL (6.3-8.2)
[2019-04-20 17:22] LABS: ABSOLUTE LYMPHOCYTES# (MANUAL) 0.4 10^3/uL (0.5-4.7); ABSOLUTE MONOCYTES # (MANUAL) 0.3 10^3/uL (0.1-1.4); BASOPHILS % (MANUAL) 0 % (0-2); EOSINOPHILS % (MANUAL) 0 % (0-6); LYMPHOCYTES % (MANUAL) 3 % (13-45); MONOCYTES % (MANUAL) 2 % (3-13); SEGMENTED NEUTROPHILS % (MAN) 95 % (42-78); TOTAL CELLS COUNTED 100
[2019-04-20 17:23] LABS: ANISOCYTOSIS 2+; OVALOCYTES SLIGHT; POIKILOCYTOSIS SLIGHT
[2019-04-20 17:24] LABS: PLATELET COMMENT ADEQUATE
[2019-04-20 17:34] LABS: TROPONIN I 0.04 ng/mL
--- NOTE | 2019-04-20 17:37 | RADIOLOGY REPORT (SQ) ---
EXAM DESCRIPTION: CHEST SINGLE VIEW COMPLETED DATE/TIME: 04/20/2019 5:24 pm REASON FOR STUDY: diff breathing cough COMPARISON: 04/09/2019 EXAM PARAMETERS: NUMBER OF VIEWS: One view. TECHNIQUE: Single frontal radiographic view of the chest acquired. RADIATION DOSE: NA LIMITATIONS: None. FINDINGS: LUNGS AND PLEURA: Linear scarring at the left base. Right lung is clear. MEDIASTINUM AND HILAR STRUCTURES: No masses. Contour normal. HEART AND VASCULAR STRUCTURES: Heart enlarged. BONES: No acute findings. HARDWARE: None in the chest. OTHER: No other significant finding. IMPRESSION: Cardiac enlargement. Linear atelectasis at the left base. TECHNICAL DOCUMENTATION: JOB ID: [id number] [employer]- All Rights Reserved Reading location - IP/workstation name: [email or web address]
[2019-04-20] MEDS ORDERED: DIGOXIN INJ 0.5 MG/2 ML AMPULE IV ONE (18:18)
[2019-04-20 18:23] LABS: APPEARANCE,URINE CLEAR; BILIRUBIN,URINE NEGATIVE (NEGATIVE); COLOR,URINE YELLOW; GLUCOSE, URINE NEGATIVE (NEGATIVE); KETONES,URINE NEGATIVE (NEGATIVE); LEUKOCYTE ESTERASE,URINE NEGATIVE (NEGATIVE); NITRITE,URINE NEGATIVE (NEGATIVE); PROTEIN,URINE 30 mg/dL (NEGATIVE); URINE SPECIFIC GRAVITY 1.009; UROBILINOGEN,URINE NEGATIVE mg/dL (<2.0)
[2019-04-20 18:40] LABS: FREE T4 (FREE THYROXINE) 0.28 ng/dL (0.78-2.19)
[2019-04-20] MEDS ORDERED: MAG HYDROX/AL HYDROX/SIMETH SUSP 30 ML UDCUP PO PRN (18:47)
[2019-04-20] MEDS ORDERED: ACETAMINOPHEN 325 MG TABLET PO PRN (18:47)
[2019-04-20] MEDS ORDERED: GUAIFENESIN/D-METHORPHAN (200-20 MG) SYRUP 10 ML PO PRN (18:52)
[2019-04-20] MEDS ORDERED: GUAIFENESIN/D-METHORPHAN (200-20 MG) SYRUP 10 ML PO ONE (18:52)
[2019-04-20 18:54] LABS: THYROID STIMULATING HORMONE 83.9 uIU/mL (0.47-4.68)
--- NOTE | 2019-04-20 19:03 | PDOC PROGRESS REPORT ---
Subjective Progress Note for:: 04/20/19 Subjective:: 78-year-old female past medical history of A. fib, CHF, CAD, dyslipidemia, hypertension, COPD, diabetes, CKD, GERD, arthritis, psoriasis, depression, who is a resident of [facility] presenting to ED complaining of worsening productive cough, associated with low energy, anorexia, and shortness of breath. Patient is a resident of [facility], stating that everybody is sick around her, today she went to see her model set artist Dr. Ventura and was noted to be short of breath and was sent over to ED for further evaluation. Also complaining of sore abdomen due to excessive coughing, otherwise denying any fever, chills, nausea, vomiting, diarrhea, constipation or any urinary symptoms. Patient was found to be in A. fib RVR with low BP. Hospitalist consulted for admission. Reason For Visit: COUGH Physical Exam Vital Signs: Temp Pulse Resp BP Pulse Ox 99.0 F 128 H 25 H 102/49 L 95 04/20/19 16:02 04/20/19 16:02 04/20/19 18:35 04/20/19 18:35 04/20/19 18:35 Intake & Output 04/19/19 04/20/19 04/21/19 06:59 06:59 06:59 Weight 76.9 kg General appearance: PRESENT: mild distress Head exam: PRESENT: atraumatic, normocephalic Respiratory exam: PRESENT: clear to auscultation kaylee, decreased breath sounds, prolonged expiratory phas. ABSENT: rales, rhonchi, wheezes Cardiovascular exam: PRESENT: irregular rhythm, tachycardia. ABSENT: diastolic murmur, rubs, systolic murmur GI/Abdominal exam: PRESENT: normal bowel sounds, soft. ABSENT: distended, guarding, mass, organolmegaly, rebound, tenderness Neurological exam: PRESENT: alert, awake, oriented to person, oriented to place, oriented to time, oriented to situation, CN II-XII grossly intact. ABSENT: m otor sensory deficit Results Laboratory Results: 04/20/19 16:39 04/20/19 16:39 04/20/19 04/20/19 04/20/19 16:39 16:39 17:05 WBC 13.7 H RBC 3.30 L Hgb 9.2 L Hct 29.9 L MCV 91 MCH 28.0 MCHC 30.9 L RDW 20.1 H Plt Count 211 Seg Neutrophils % Not Reportable Sodium 143.2 Potassium 4.8 Chloride 106 Carbon Dioxide 28 Anion Gap 9 BUN 75 H Creatinine 2.31 H Est GFR ( Amer) 25 L Glucose 139 H Calcium 9.3 Total Bilirubin 0.4 AST 32 Alkaline Phosphatase 92 Total Protein 6.1 L Albumin 3.3 L Urine Color YELLOW Urine Appearance CLEAR Urine pH 6.0 Ur Specific [place] 1.009 Urine Protein 30 H Urine Glucose (UA) NEGATIVE Urine Ketones NEGATIVE Urine Blood NEGATIVE Urine Nitrite NEGATIVE Ur Leukocyte Esterase NEGATIVE Urine WBC (Auto) 1 Urine RBC (Auto) 1 04/20/19 04/20/19 16:39 16:39 Creatine Kinase 49 Troponin I 0.040 NT-Pro-B Natriuret Pep 2320 H Impressions: Chest X-Ray 04/20/19 16:08 IMPRESSION: Cardiac enlargement. Linear atelectasis at the left base. Assessment and Plan - Diagnosis (1) Atrial fibrillation with rapid ventricular response Is this a current diagnosis for this admission?: Yes Plan: Likely exacerbated by recent acute respiratory failure caused by underlying pneumonia. Patient states BPs running in 90s, not a candidate for Cardizem drip. Received 1 dose of 0.125 digitalis with no significant change heart rate. Started on amiodarone drip. Once blood pressure recovers can be started on Cardizem drip. (2) Healthcare-associated pneumonia Is this a current diagnosis for this admission?: Yes Plan: Patient is a resident of [facility] with history of multiple hospitalizations. High risk for healthcare associated pneumonia. Likely due to gram-positive's. Started on broad-spectrum antibiotics to cover gram-positive signs Pseudomonas. (3) Acute respiratory failure with hypoxia Is this a current diagnosis for this admission?: Yes Plan: Due to #1/#2. Plan as above. (4) CHF (congestive heart failure) Qualifiers: Heart failure type: diastolic Heart failure chronicity: chronic Qualified Code(s): I50.32 - Chronic diastolic (congestive) heart failure Is this a current diagnosis for this admission?: Yes Plan: Chronic diastolic heart failure. Does not seem to be in an acute exacerbation. 10/20/2018. 2D echo. LVEF 65%. Inferior wall hypokinesis, right ventricular enlargement. Will place on cardiac diet, diuretics, beta-blockers, JASON. (5) Chronic kidney disease, stage 3 Is this a current diagnosis for this admission?: Yes Plan: Mildly elevated creatinine. Baseline 1.6. Electrolytes WNL. Monitor glucose, monitor volume status, avoid nephrotoxic meds. Outpatient nephrology follow-up. (6) COPD exacerbation Is this a current diagnosis for this admission?: Yes Plan: Likely due to #1 #2. Not on home O2. Admit to telemetry, flutter valve, incentive spirometry, pulmonary toileting, LMA, LABA, ICS, IV steroids. Patient PCP and pulmonology follow-up. (7) Coronary artery disease Qualifiers: Coronary Disease-Associated Artery/Lesion type: unspecified vessel or lesion type Associated angina: without angina Is this a current diagnosis for this admission?: Yes Plan: Denies any anginal symptoms. Troponins negative. EKG no acute changes. Restart home meds. Adjust dosage as needed. Outpatient PCP follow-up (8) Diabetes mellitus type 2 in obese Is this a current diagnosis for this admission?: Yes Plan: Diabetic diet, sliding scale insulin, pre-meal insulin, long-acting insulin, Accu-Chek, hypoglycemia protocol. Restart home meds upon discharge. Adjust dosage as needed.
[2019-04-20] MEDS ORDERED: VANCOMYCIN HCL 0 MG in DEXTROSE 5%-WATER 250 ML IV NR (19:15)
[2019-04-20] MEDS ORDERED: METHYLPREDNISOLONE INJ 40 MG/1 ML SDV IV SCH (19:15)
[2019-04-20 19:46] LABS: INTERNATIONAL RATION (INR) 1.14; PROTHROMBIN TIME 14.7 SEC (11.4-15.4)
[2019-04-20] MEDS ORDERED: AMIODARONE HCL 150 MG in DEXTROSE 5%-WATER 100 ML IV ONE (20:00)
[2019-04-20] MEDS ORDERED: LEVOFLOXACIN 500 MG/D5W RTU 500 MG/100 ML RTUPB IV ONE (20:00)
[2019-04-20] MEDS: DEXTROSE 5%-WATER 500 ML with AMIODARONE HCL 900 MG IV PRN ×2 (20:21)
[2019-04-20] MEDS: IPRATROPIUM/ALBUTEROL 0.5-2.5 MG/3 ML AMPUL NEB SCH (22:19)
[2019-04-21] MEDS: VANCOMYCIN HCL 1,250 MG in DEXTROSE 5%-WATER 250 ML IV SCH (00:04)
[2019-04-21] MEDS: ENOXAPARIN SODIUM INJ 30 MG/0.3 ML DISP.SYRIN SUBCUT SCH ×2 (00:07→09:13)
[2019-04-21 04:49] LABS: HEMATOCRIT 25.3 % (36.0-47.0); HEMOGLOBIN 8.2 g/dL (12.0-15.5); MEAN CORPUSCULAR HEMOGLOBIN 28.4 pg (27.0-33.4); MEAN CORPUSCULAR HGB CONC 32.3 g/dL (32.0-36.0); MEAN CORPUSCULAR VOLUME 88 fl (80-97); PLATELET COUNT 175 10^3/uL (150-450); RED BLOOD COUNT 2.88 10^6/uL (3.72-5.28); RED CELL DISTRIBUTION WIDTH 20.4 % (11.5-14.0); WHITE BLOOD COUNT 11.4 10^3/uL (4.0-10.5)
[2019-04-21 05:07] LABS: ANION GAP 7 (5-19); BLOOD UREA NITROGEN 72 mg/dL (7-20); CALCIUM 8.8 mg/dL (8.4-10.2); CARBON DIOXIDE 29 mmol/L (22-30); CHLORIDE 105 mmol/L (98-107); GLUCOSE 148 mg/dL (75-110); POTASSIUM 4.3 mmol/L (3.6-5.0)
[2019-04-21 05:34] LABS: ABSOLUTE LYMPHOCYTES# (MANUAL) 0.5 10^3/uL (0.5-4.7); ABSOLUTE MONOCYTES # (MANUAL) 0.8 10^3/uL (0.1-1.4); ANISOCYTOSIS 2+; BASOPHILS % (MANUAL) 0 % (0-2); EOSINOPHILS % (MANUAL) 1 % (0-6); LYMPHOCYTES % (MANUAL) 4 % (13-45); MONOCYTES % (MANUAL) 7 % (3-13); OVALOCYTES SLIGHT; SEGMENTED NEUTROPHILS % (MAN) 88 % (42-78); TEAR DROP CELLS SLIGHT; TOTAL CELLS COUNTED 100
[2019-04-21 05:35] LABS: PLATELET COMMENT ADEQUATE
[2019-04-21] MEDS: PANTOPRAZOLE SODIUM 40 MG TABLET.DR PO SCH ×2 (05:47→17:18)
[2019-04-21] MEDS ORDERED: LEVOTHYROXINE SODIUM 0.05 MG TABLET PO ONE (07:39)
[2019-04-21] MEDS: IPRATROPIUM/ALBUTEROL 0.5-2.5 MG/3 ML AMPUL NEB SCH ×3 (08:29→20:21)
[2019-04-21] MEDS: FERROUS SULFATE 325 MG TABLET PO SCH (08:40)
[2019-04-21] MEDS: SERTRALINE HCL 50 MG TABLET PO SCH (08:40)
[2019-04-21] MEDS ORDERED: LEVOFLOXACIN 500 MG/D5W RTU 500 MG/100 ML RTUPB IV ONE (09:00)
[2019-04-21] MEDS ORDERED: DEXTROSE 50%-WATER 25 GM/50 ML DISP.SYRIN IV PRN ×2 (09:07)
[2019-04-21] MEDS ORDERED: GLUCAGON,HUMAN RECOMB 1 MG INJ IM PRN (09:07)
[2019-04-21] MEDS ORDERED: DEXTROSE 40% GEL 15 GM TUBE PO PRN ×2 (09:07)
[2019-04-21] MEDS: ASPIRIN 81 MG TABLET, ENT COATED PO SCH (09:13)
[2019-04-21] MEDS: CHOLECALCIFEROL (D3) 1,000 UNIT (25 MCG) TABLET PO SCH (09:13)
[2019-04-21] MEDS: ALLOPURINOL 300 MG TABLET PO SCH (09:13)
[2019-04-21] MEDS: DOCUSATE SODIUM 100 MG CAPSULE PO SCH ×2 (09:13→17:18)
[2019-04-21] MEDS: MULTIVITAMIN TABLET PO SCH (09:13)
[2019-04-21] MEDS ORDERED: (PENDING PHARMACY ID) (Apremilast [Otezla] 30 MG) PO SCH (10:00)
[2019-04-21] MEDS: FLUTICASONE/UMECLIDIN/VILANTER 100-62.5-25 MCG/DOSE IH SCH (10:21)
[2019-04-21] MEDS: GUAIFENESIN/D-METHORPHAN (200-20 MG) SYRUP 10 ML PO SCH ×3 (10:21→17:18)
[2019-04-21] MEDS: NYSTATIN/DEXAMETH/DIPHEN SUSP 120 ML PO SCH ×4 (10:22→21:21)
[2019-04-21] MEDS: CYCLOSPORINE 0.05% OPH EMULSIO 0.4 ML DROPERETTE OU SCH (10:23)
--- NOTE | 2019-04-21 11:30 | EKG REPORT ---
SEVERITY:- ABNORMAL ECG - ATRIAL FIBRILLATION PROBABLE INFERIOR INFARCT, OLD EXTENSIVE ANTERIOR INFARCT, AGE INDETERMINATE : Confirmed by: Cathryn Lopez 21-Apr-2019 11:30:05
[2019-04-21] MEDS: INSULIN LISPRO 100 UNIT/ML 3 ML VIAL SUBCUT SCH ×3 (12:15→21:19)
--- NOTE | 2019-04-21 15:34 | PDOC PROGRESS REPORT ---
Subjective Progress Note for:: 04/21/19 Subjective:: 78-year-old female past medical history of A. fib, CHF, CAD, dyslipidemia, hypertension, COPD, diabetes, CKD, GERD, arthritis, psoriasis, depression, who is a resident of [facility] presenting to ED complaining of worsening productive cough, associated with low energy, anorexia, and shortness of breath. Patient is a resident of [facility], stating that everybody is sick around her, today she went to see her esol instructor Dr. Ventura and was noted to be short of breath and was sent over to ED for further evaluation. Also complaining of sore abdomen due to excessive coughing, otherwise denying any fever, chills, nausea, vomiting, diarrhea, constipation or any urinary symptoms. Patient was found to be in A. fib RVR with low BP. Hospitalist consulted for admission. 04/21/2019. No acute events overnight. Patient sitting in recliner, sitting she is feeling somewhat better, cough has improved slightly, there is any fever, chi lls, nausea nausea, vomiting, diarrhea, constipation or any urinary symptoms. Heart rate in low 100s, still on amiodarone drip, pressure low normal. Reason For Visit: AFIB RVR,HYPOTENSION,PNUEMONIA Physical Exam Vital Signs: Temp Pulse Resp BP Pulse Ox 98.9 F 92 16 97/71 L 94 04/21/19 11:13 04/21/19 14:13 04/21/19 14:13 04/21/19 14:00 04/21/19 14:13 Intake & Output 04/20/19 04/21/19 04/22/19 06:59 06:59 06:59 Intake Total 452 580 Output Total 450 Balance 2 580 Weight 76.5 kg General appearance: PRESENT: obese Head exam: PRESENT: atraumatic, normocephalic Respiratory exam: PRESENT: decreased breath sounds, prolonged expiratory phas, symmetrical. ABSENT: rales, rhonchi, wheezes Cardiovascular exam: PRESENT: irregular rhythm, tachycardia. ABSENT: diastolic murmur, rubs, systolic murmur GI/Abdominal exam: PRESENT: normal bowel sounds, soft. ABSENT: distended, guarding, mass, organolmegaly, rebound, tenderness Neurological exam: PRESENT: alert, awake, oriented to person, oriented to place, oriented to time, oriented to situation, CN II-XII grossly intact. ABSENT: motor sensory deficit Results Laboratory Results: 04/21/19 03:47 04/21/19 03:47 04/20/19 04/20/19 04/20/19 16:39 16:39 16:39 WBC 13.7 H RBC 3.30 L Hgb 9.2 L Hct 29.9 L MCV 91 MCH 28.0 MCHC 30.9 L RDW 20.1 H Plt Count 211 Seg Neutrophils % Not Reportable Sodium 143.2 Potassium 4.8 Chloride 106 Carbon Dioxide 28 Anion Gap 9 BUN 75 H Creatinine 2.31 H Est GFR ( Amer) 25 L Glucose 139 H Calcium 9.3 Total Bilirubin 0.4 AST 32 Alkaline Phosphatase 92 Total Protein 6.1 L Albumin 3.3 L TSH 83.90 H Free T4 0.28 L Free T3 pg/mL Urine Color Urine Appearance Urine pH Ur Specific Vevay Urine Protein Urine Glucose (UA) Urine Ketones Urine Blood Urine Nitrite Ur Leukocyte Esterase Urine WBC (Auto) Urine RBC (Auto) 04/20/19 04/21/19 04/21/19 17:05 03:47 03:47 WBC 11.4 H RBC 2.88 L Hgb 8.2 L Hct 25.3 L MCV 88 MCH 28.4 MCHC 32.3 RDW 20.4 H Plt Count 175 Seg Neutrophils % Not Reportable Sodium 141.3 Potassium 4.3 Chloride 105 Carbon Dioxide 29 Anion Gap 7 BUN 72 H Creatinine 2.26 H Est GFR ( Amer) 25 L Glucose 148 H Calcium 8.8 Total Bilirubin AST Alkaline Phosphatase Total Protein Albumin TSH Free T4 Free T3 pg/mL Urine Color YELLOW Urine Appearance CLEAR Urine pH 6.0 Ur Specific [place] 1.009 Urine Protein 30 H Urine Glucose (UA) NEGATIVE Urine Ketones NEGATIVE Urine Blood NEGATIVE Urine Nitrite NEGATIVE Ur Leukocyte Esterase NEGATIVE Urine WBC (Auto) 1 Urine RBC (Auto) 1 04/21/19 03:47 WBC RBC Hgb Hct MCV MCH MCHC RDW Plt Count Seg Neutrophils % Sodium Potassium Chloride Carbon Dioxide Anion Gap BUN Creatinine Est GFR ( Amer) Glucose Calcium Total Bilirubin AST Alkaline Phosphatase Total Protein Albumin TSH Free T4 Free T3 pg/mL 2.66 L Urine Color Urine Appearance Urine pH Ur Specific V[place] Urine Protein Urine Glucose (UA) Urine Ketones Urine Blood Urine Nitrite Ur Leukocyte Esterase Urine WBC (Auto) Urine RBC (Auto) 04/20/19 04/20/19 16:39 16:39 Creatine Kinase 49 Troponin I 0.040 NT-Pro-B Natriuret Pep 2320 H Impressions: Chest X-Ray 04/20/19 16:08 IMPRESSION: Cardiac enlargement. Linear atelectasis at the left base. Assessment and Plan - Diagnosis (1) Atrial fibrillation with rapid ventricular response Is this a current diagnosis for this admission?: Yes Plan: Likely exacerbated by recent acute respiratory failure caused by underlying pneumonia. Patient states BPs running in 90s, not a candidate for Cardizem drip. Received 1 dose of 0.125 digitalis with no significant change heart rate. Continue amiodarone drip, transition to Cardizem drip if pressures recovered. (2) Healthcare-associated pneumonia Is this a current diagnosis for this admission?: Yes Plan: [facility] is a [facility] with history of multiple hospitalizations. High risk for healthcare associated pneumonia. Likely due to gram-positive's. Started on broad-spectrum antibiotics to cover gram-positive signs Pseudomonas. Day 2 IV antibiotics. Day 2 IV levofloxacin renally dosed. Day 2 IV vancomycin renally dosed. Cultures no growth so far. Continue empiric IV antibiotics, follow cultures. (3) Acute respiratory failure with hypoxia Is this a current diagnosis for this admission?: Yes Plan: Due to #1/#2. Plan as above. (4) CHF (congestive heart failure) Qualifiers: Heart failure type: diastolic Heart failure chronicity: chronic Qualified Code(s): I50.32 - Chronic diastolic (congestive) heart failure Is this a current diagnosis for this admission?: Yes Plan: Chronic diastolic heart failure. Does not seem to be in an acute exacerbation. 10/20/2018. 2D echo. LVEF 65%. Inferior wall hypokinesis, right ventricular enlargement. Continue cardiac diet, beta-blockers, JASON, diuretics once appropriate. (5) Chronic kidney disease, stage 3 Is this a current diagnosis for this admission?: Yes Plan: Nonoliguric. Mild improvement of creatinine. Baseline 1.6. Electrolytes WNL. Monitor vitals, monitor volume status, avoid nephrotoxic meds. Outpatient nephrology follow-up. (6) COPD exacerbation Is this a current diagnosis for this admission?: Yes Plan: Likely due to #1 #2. Not on home O2. Continue flutter valve, incentive spirometry, pulmonary toileting, LMA, LABA, ICS, IV steroids. Outpatient PCP and pulmonology follow-up. (7) Coronary artery disease Qualifiers: Coronary Disease-Associated Artery/Lesion type: unspecified vessel or lesion type Associated angina: without angina Is this a current diagnosis for this admission?: Yes Plan: Denies any anginal symptoms. Troponins negative. EKG no acute changes. Restart home meds. Adjust dosage as needed. Outpatient PCP follow-up (8) Diabetes mellitus type 2 in obese Is this a current diagnosis for this admission?: Yes Plan: Diabetic diet, sliding scale insulin, pre-meal insulin, long-acting insulin, Accu-Chek, hypoglycemia protocol. Restart home meds upon discharge. Adjust dosage as needed. (9) Hypothyroidism Qualifiers: Hypothyroidism type: unspecified Qualified Code(s): E03.9 - Hypothyroidism, unspecified Is this a current diagnosis for this admission?: Yes Plan: Not controlled. Levothyroxine is 0.025 mg however not sure if she is receiving it as her TSH is extremely elevated. TSH 83.9, T4 0.28, T3 2.66. Increase levothyroxine to 75 MCG. Patient will need to get another TSH in 6 weeks for readjustment of her levothyroxine.
[2019-04-21] MEDS ORDERED: METOPROLOL TARTRATE PF/INJ 5 MG/5 ML SDV IV PRN (18:34)
[2019-04-21] MEDS: DEXTROSE 5%-WATER 500 ML with AMIODARONE HCL 900 MG IV PRN ×2 (20:20)
[2019-04-21] MEDS: OXYCODONE-ACETAMINOPHEN 5-325 MG TABLET PO PRN (20:24)
[2019-04-21] MEDS: MELATONIN 5 MG TABLET PO SCH (21:18)
[2019-04-21] MEDS: ATORVASTATIN CALCIUM 40 MG TABLET PO SCH (21:18)
[2019-04-21] MEDS: AMIODARONE HCL 200 MG TABLET PO SCH (21:18)
[2019-04-21] MEDS: MIRTAZAPINE 15 MG TABLET PO SCH (21:19)
[2019-04-22] MEDS: LEVOTHYROXINE SODIUM 0.075 MG TABLET PO SCH (05:12)
[2019-04-22] MEDS: PANTOPRAZOLE SODIUM 40 MG TABLET.DR PO SCH ×2 (05:12→17:06)
[2019-04-22 05:52] LABS: ALBUMIN 2.8 g/dL (3.5-5.0); ALKALINE PHOSPHATASE 62 U/L (38-126); ANION GAP 8 (5-19); ASPARTATE AMINO TRANSFERASE 21 U/L (14-36); BILIRUBIN,DIRECT 0.2 mg/dL (0.0-0.4); BILIRUBIN,TOTAL 0.5 mg/dL (0.2-1.3); BLOOD UREA NITROGEN 62 mg/dL (7-20); CALCIUM 8.6 mg/dL (8.4-10.2); CARBON DIOXIDE 27 mmol/L (22-30); CHLORIDE 104 mmol/L (98-107); GLUCOSE 144 mg/dL (75-110); HEMATOCRIT 26.5 % (36.0-47.0); HEMOGLOBIN 8.7 g/dL (12.0-15.5); MEAN CORPUSCULAR HEMOGLOBIN 28.8 pg (27.0-33.4); MEAN CORPUSCULAR HGB CONC 32.7 g/dL (32.0-36.0); MEAN CORPUSCULAR VOLUME 88 fl (80-97); PLATELET COUNT 178 10^3/uL (150-450); POTASSIUM 4.2 mmol/L (3.6-5.0); RED BLOOD COUNT 3.01 10^6/uL (3.72-5.28); RED CELL DISTRIBUTION WIDTH 19.7 % (11.5-14.0); TOTAL PROTEIN 5.5 g/dL (6.3-8.2)
[2019-04-22] MEDS ORDERED: LEVOTHYROXINE SODIUM 0.025 MG TABLET PO SCH (06:00)
[2019-04-22 06:27] LABS: ABSOLUTE LYMPHOCYTES# (MANUAL) 0.2 10^3/uL (0.5-4.7); ABSOLUTE MONOCYTES # (MANUAL) 0.8 10^3/uL (0.1-1.4); ANISOCYTOSIS 2+; BASOPHILS % (MANUAL) 0 % (0-2); EOSINOPHILS % (MANUAL) 0 % (0-6); LYMPHOCYTES % (MANUAL) 2 % (13-45); MONOCYTES % (MANUAL) 7 % (3-13); OVALOCYTES SLIGHT; SEGMENTED NEUTROPHILS % (MAN) 91 % (42-78); TEAR DROP CELLS SLIGHT; TOTAL CELLS COUNTED 100
[2019-04-22 06:28] LABS: PLATELET COMMENT ADEQUATE
[2019-04-22] MEDS ORDERED: DIGOXIN INJ 0.5 MG/2 ML AMPULE IV ONE (07:58)
[2019-04-22] MEDS: IPRATROPIUM/ALBUTEROL 0.5-2.5 MG/3 ML AMPUL NEB SCH ×3 (08:09→20:26)
[2019-04-22] MEDS: INSULIN LISPRO 100 UNIT/ML 3 ML VIAL SUBCUT SCH ×4 (08:11→21:44)
[2019-04-22] MEDS: SERTRALINE HCL 50 MG TABLET PO SCH (08:22)
[2019-04-22] MEDS: FERROUS SULFATE 325 MG TABLET PO SCH (08:22)
[2019-04-22] MEDS: DOCUSATE SODIUM 100 MG CAPSULE PO SCH ×2 (09:18→17:06)
[2019-04-22] MEDS: ENOXAPARIN SODIUM INJ 30 MG/0.3 ML DISP.SYRIN SUBCUT SCH (09:18)
[2019-04-22] MEDS: ALLOPURINOL 300 MG TABLET PO SCH (09:18)
[2019-04-22] MEDS: CHOLECALCIFEROL (D3) 1,000 UNIT (25 MCG) TABLET PO SCH (09:18)
[2019-04-22] MEDS: ASPIRIN 81 MG TABLET, ENT COATED PO SCH (09:18)
[2019-04-22] MEDS: CYCLOSPORINE 0.05% OPH EMULSIO 0.4 ML DROPERETTE OU SCH (09:18)
[2019-04-22] MEDS: FLUTICASONE/UMECLIDIN/VILANTER 100-62.5-25 MCG/DOSE IH SCH (09:18)
[2019-04-22] MEDS: AMIODARONE HCL 200 MG TABLET PO SCH ×2 (09:18→21:44)
[2019-04-22] MEDS: GUAIFENESIN/D-METHORPHAN (200-20 MG) SYRUP 10 ML PO SCH ×3 (09:18→17:06)
[2019-04-22] MEDS: MULTIVITAMIN TABLET PO SCH (09:18)
[2019-04-22] MEDS: NYSTATIN/DEXAMETH/DIPHEN SUSP 120 ML PO SCH ×4 (09:19→21:54)
--- NOTE | 2019-04-22 10:43 | PDOC PROGRESS REPORT ---
Subjective Progress Note for:: 04/22/19 Subjective:: 78-year-old female past medical history of A. fib, CHF, CAD, dyslipidemia, hypertension, COPD, diabetes, CKD, GERD, arthritis, psoriasis, depression, who is a resident of group home at [facility] presenting to ED complaining of worsening productive cough, associated with low energy, anorexia, and shortness of breath. Patient is a resident of group home, stating that everybody is sick around her, today she went to see her housekeeping assistant Dr. Ventura and was noted to be short of breath and was sent over to ED for further evaluation. Also complaining of sore abdomen due to excessive coughing, otherwise denying any fever, chills, nausea, vomiting, diarrhea, constipation or any urinary symptoms. Patient was found to be in A. fib RVR with low BP. Hospitalist consulted for admission. 04/21/2019. No acute events overnight. Patient sitting in recliner, sitting she is feeling somewhat better, cough has improved slightly, there is any fever, chi lls, nausea nausea, vomiting, diarrhea, constipation or any urinary symptoms. Heart rate in low 100s, still on amiodarone drip, pressure low normal. 04/22/2019. No acute events overnight, patient still on A. fib RVR, amiodarone drip switched to p.o. amiodarone, BP is still too low to start on Cardizem drip. Received another dose of dig toxin. Patient is stating she is feeling better, coughing has improved, abdominal pain has improved, p.o. tolerant, denies any fever, chills, nausea, vomiting, diarrhea, constipation or any urinary symptoms. Reason For Visit: AFIB RVR,HYPOTENSION,PNUEMONIA Physical Exam Vital Signs: Temp Pulse Resp BP Pulse Ox 98.3 F 100 18 99/47 L 92 04/22/19 03:25 04/22/19 10:00 04/22/19 08:09 04/22/19 10:00 04/22/19 08:09 Intake & Output 04/21/19 04/22/19 04/23/19 06:59 06:59 06:59 Intake Total 452 1238 213 Output Total 450 200 Balance 2 1038 213 Weight 76.5 kg 79.9 kg General appearance: PRESENT: no acute distress, well-developed, well-nourished Head exam: PRESENT: atraumatic, normocephalic Respiratory exam: PRESENT: clear to auscultation kaylee, tachypnea. ABSENT: rales, rhonchi, wheezes Cardiovascular exam: PRESENT: irregular rhythm, tachycardia. ABSENT: diastolic murmur, rubs, systolic murmur GI/Abdominal exam: PRESENT: normal bowel sounds, soft. ABSENT: distended, guarding, mass, organolmegaly, rebound, tenderness Neurological exam: PRESENT: alert, awake, oriented to person, oriented to place, oriented to time, oriented to situation, CN II-XII grossly intact Results Laboratory Results: 04/22/19 04:51 04/22/19 04:51 04/22/19 04/22/19 04:51 04:51 WBC 12.0 H RBC 3.01 L Hgb 8.7 L Hct 26.5 L MCV 88 MCH 28.8 MCHC 32.7 RDW 19.7 H Plt Count 178 Seg Neutrophils % Not Reportable Sodium 138.7 Potassium 4.2 Chloride 104 Carbon Dioxide 27 Anion Gap 8 BUN 62 H Creatinine 2.22 H Est GFR ( Amer) 26 L Glucose 144 H Calcium 8.6 Magnesium 2.0 Total Bilirubin 0.5 AST 21 Alkaline Phosphatase 62 Total Protein 5.5 L Albumin 2.8 L 04/20/19 04/20/19 16:39 16:39 Creatine Kinase 49 Troponin I 0.040 NT-Pro-B Natriuret Pep 2320 H Impressions: Chest X-Ray 04/20/19 16:08 IMPRESSION: Cardiac enlargement. Linear atelectasis at the left base. Assessment and Plan - Diagnosis (1) Atrial fibrillation with rapid ventricular response Is this a current diagnosis for this admission?: Yes Plan: A. fib RVR. Not controlled. Anticoagulated. Likely exacerbated by recent acute respiratory failure caused by underlying pneumonia. Patient states BPs running in 90s, not a candidate for Cardizem drip. Started on amiodarone drip and transition to p.o. IV. Another dose of digitalis today. If still A. fib RVR on BP low possibly be started on esmolol drip. (2) Healthcare-associated pneumonia Is this a current diagnosis for this admission?: Yes Plan: Patient is a resident of group home with history of multiple hospitalizations. High risk for healthcare associated pneumonia. Likely due to gram-positive's. Started on broad-spectrum antibiotics to cover gram-positive signs Pseudomonas. Day 3 IV antibiotics. Day 3 IV levofloxacin renally dosed. Day 3 IV vancomycin renally dosed. Cultures no growth so far. Continue empiric IV antibiotics, follow cultures. (3) Acute respiratory failure with hypoxia Is this a current diagnosis for this admission?: Yes Plan: Due to #1/#2. Plan as above. (4) CHF (congestive heart failure) Qualifiers: Heart failure type: diastolic Heart failure chronicity: chronic Qualified Code(s): I50.32 - Chronic diastolic (congestive) heart failure Is this a current diagnosis for this admission?: Yes Plan: Chronic diastolic heart failure. Does not seem to be in an acute exacerbation. 10/20/2018. 2D echo. LVEF 65%. Inferior wall hypokinesis, right ventricular enlargement. Continue cardiac diet, beta-blockers, JASON, diuretics once appropriate. (5) Chronic kidney disease, stage 3 Is this a current diagnosis for this admission?: Yes Plan: Nonoliguric. Mild improvement of creatinine. Baseline 1.6. Electrolytes WNL. Monitor vitals, monitor volume status, avoid nephrotoxic meds. Outpatient nephrology follow-up. (6) COPD exacerbation Is this a current diagnosis for this admission?: Yes Plan: Likely due to #1 #2. Not on home O2. Continue flutter valve, incentive spirometry, pulmonary toileting, LMA, LABA, ICS, IV steroids. Outpatient PCP and pulmonology follow-up. (7) Coronary artery disease Qualifiers: Coronary Disease-Associated Artery/Lesion type: unspecified vessel or lesion type Associated angina: without angina Is this a current diagnosis for this admission?: Yes Plan: Denies any anginal symptoms. Troponins negative. EKG no acute changes. Restart home meds. Adjust dosage as needed. Outpatient PCP follow-up (8) Diabetes mellitus type 2 in obese Is this a current diagnosis for this admission?: Yes Plan: Diabetic diet, sliding scale insulin, pre-meal insulin, long-acting insulin, Accu-Chek, hypoglycemia protocol. Restart home meds upon discharge. Adjust dosage as needed. (9) Hypothyroidism Qualifiers: Hypothyroidism type: unspecified Qualified Code(s): E03.9 - Hypothyroidism, unspecified Is this a current diagnosis for this admission?: Yes Plan: Not controlled. Levothyroxine is 0.025 mg however not sure if she is receiving it as her TSH is extremely elevated. TSH 83.9, T4 0.28, T3 2.66. Thyroxine increased to 75 MCG. Continue levothyroxine. Patient will need to get another TSH in 6 weeks for readjustment of her levothyroxine.
[2019-04-22] MEDS ORDERED: NORMAL SALINE 1000 ML 1,000 ML IV PRN (13:14)
--- NOTE | 2019-04-22 16:29 | Progress Note ---
Provider Note Provider Note: Asked by Dr. Estrella to evaluate pt for the ICU and esmolol drip. Briefly she is an 78 yo SN[facility] pt with weakness anorexia cough and dyspnea. Also atrial fibrillation occasionally with RVR. On digoxin, was on amiodarone. Her cr is 2.2 with a baseline of 1.6. Clinicaly she is dry. She feels dehydrated and weak. Not eating much due to cough. Her HR is at least partially driven by dehydration. At a rate of 110 and other comorbidities she is tachycardic. HR of 110 is not terribly high with no symptoms. I would volume load first with 1-2 liters of saline or ringer's and reassess in 1-2 hours. If HR is 100 or lower would not start esmolol. Right now stable for medical floor managment.
[2019-04-22] MEDS: NORMAL SALINE 1000 ML 1,000 ML IV PRN (16:47)
[2019-04-22] MEDS ORDERED: LEVOFLOXACIN 250 MG/D5W RTU 250 MG/50 ML RTUPB IV SCH (18:00)
[2019-04-22] MEDS: ATORVASTATIN CALCIUM 40 MG TABLET PO SCH (21:43)
[2019-04-22] MEDS: MIRTAZAPINE 15 MG TABLET PO SCH (21:43)
[2019-04-22] MEDS: OXYCODONE-ACETAMINOPHEN 5-325 MG TABLET PO PRN (21:43)
[2019-04-22] MEDS: VANCOMYCIN HCL 1,250 MG in DEXTROSE 5%-WATER 250 ML IV SCH (21:44)
[2019-04-22] MEDS: MELATONIN 5 MG TABLET PO SCH (21:47)
[2019-04-23] MEDS: NORMAL SALINE 1000 ML 1,000 ML IV PRN ×2 (02:38→18:58)
[2019-04-23] MEDS: PANTOPRAZOLE SODIUM 40 MG TABLET.DR PO SCH ×2 (05:21→16:33)
[2019-04-23] MEDS: LEVOTHYROXINE SODIUM 0.075 MG TABLET PO SCH (05:21)
[2019-04-23 05:31] LABS: HEMATOCRIT 24.8 % (36.0-47.0); HEMOGLOBIN 8.1 g/dL (12.0-15.5); MEAN CORPUSCULAR HEMOGLOBIN 28.7 pg (27.0-33.4); MEAN CORPUSCULAR HGB CONC 32.8 g/dL (32.0-36.0); MEAN CORPUSCULAR VOLUME 88 fl (80-97); PLATELET COUNT 174 10^3/uL (150-450); RED BLOOD COUNT 2.83 10^6/uL (3.72-5.28); RED CELL DISTRIBUTION WIDTH 20.2 % (11.5-14.0); WHITE BLOOD COUNT 11.6 10^3/uL (4.0-10.5)
[2019-04-23 05:41] LABS: ANION GAP 8 (5-19); BLOOD UREA NITROGEN 52 mg/dL (7-20); CALCIUM 8.2 mg/dL (8.4-10.2); CARBON DIOXIDE 24 mmol/L (22-30); CHLORIDE 107 mmol/L (98-107); GLUCOSE 123 mg/dL (75-110)
[2019-04-23 06:28] LABS: ABSOLUTE LYMPHOCYTES# (MANUAL) 0.9 10^3/uL (0.5-4.7); ABSOLUTE MONOCYTES # (MANUAL) 0.6 10^3/uL (0.1-1.4); ANISOCYTOSIS 2+; BASOPHILS % (MANUAL) 1 % (0-2); EOSINOPHILS % (MANUAL) 0 % (0-6); HYPOCHROMASIA 1+; LYMPHOCYTES % (MANUAL) 8 % (13-45); MONOCYTES % (MANUAL) 5 % (3-13); PLATELET COMMENT ADEQUATE; SEGMENTED NEUTROPHILS % (MAN) 86 % (42-78); TOTAL CELLS COUNTED 100
[2019-04-23] MEDS: INSULIN LISPRO 100 UNIT/ML 3 ML VIAL SUBCUT SCH ×4 (07:59→23:18)
[2019-04-23] MEDS: SERTRALINE HCL 50 MG TABLET PO SCH (08:30)
[2019-04-23] MEDS: FERROUS SULFATE 325 MG TABLET PO SCH (08:30)
[2019-04-23] MEDS: IPRATROPIUM/ALBUTEROL 0.5-2.5 MG/3 ML AMPUL NEB SCH ×2 (09:08→14:00)
[2019-04-23] MEDS ORDERED: CARVEDILOL 12.5 MG TABLET PO SCH (10:00)
--- NOTE | 2019-04-23 10:12 | PDOC PROGRESS REPORT ---
Subjective Progress Note for:: 04/23/19 Subjective:: 78-year-old female past medical history of A. fib, CHF, CAD, dyslipidemia, hypertension, COPD, diabetes, CKD, GERD, arthritis, psoriasis, depression, who is a resident of long-term at [facility] presenting to ED complaining of worsening productive cough, associated with low energy, anorexia, and shortness of breath. Patient is a resident of long-term, stating that everybody is sick around her, today she went to see her carbon brusher assembler Dr. Ventura and was noted to be short of breath and was sent over to ED for further evaluation. Also complaining of sore abdomen due to excessive coughing, otherwise denying any fever, chills, nausea, vomiting, diarrhea, constipation or any urinary symptoms. Patient was found to be in A. fib RVR with low BP. Hospitalist consulted for admission. 04/21/2019. No acute events overnight. Patient sitting in recliner, sitting she is feeling somewhat better, cough has improved slightly, there is any fever, chi lls, nausea nausea, vomiting, diarrhea, constipation or any urinary symptoms. Heart rate in low 100s, still on amiodarone drip, pressure low normal. 04/22/2019. No acute events overnight, patient still on A. fib RVR, amiodarone drip switched to p.o. amiodarone, BP is still too low to start on Cardizem drip. Received another dose of dig toxin. Patient is stating she is feeling better, coughing has improved, abdominal pain has improved, p.o. tolerant, denies any fever, chills, nausea, vomiting, diarrhea, constipation or any urinary symptoms. 04/23/2019. No acute events overnight, patient is rate controlled, on p.o. amiodarone, BPs are picking up. Stating that she is feeling better than y day, still complaining of sore abdomen, denies any fever, chills, nausea, vomiting, diarrhea, constipation or any urinary symptoms. Reason For Visit: AFIB RVR,HYPOTENSION,PNUEMONIA Physical Exam Vital Signs: Temp Pulse Resp BP Pulse Ox 98.1 F 92 16 147/50 H 90 L 04/23/19 08:35 04/23/19 09:08 04/23/19 09:08 04/23/19 08:35 04/23/19 09:08 Intake & Output 04/22/19 04/23/19 04/24/19 06:59 06:59 06:59 Intake Total 1238 2523 308 Output Total 200 400 Balance 1038 2123 308 Weight 79.9 kg 78.3 kg General appearance: PRESENT: no acute distress, well-developed, well-nourished Neck exam: ABSENT: carotid bruit, JVD, lymphadenopathy, thyromegaly Respiratory exam: PRESENT: crackles. ABSENT: rales, rhonchi, wheezes Cardiovascular exam: PRESENT: irregular rhythm. ABSENT: diastolic murmur, rubs, systolic murmur GI/Abdominal exam: PRESENT: normal bowel sounds, soft. ABSENT: distended, guarding, mass, organolmegaly, rebound, tenderness Neurological exam: PRESENT: alert, awake, oriented to person, oriented to place, oriented to time, oriented to situation, CN II-XII grossly intact. ABSENT: motor sensory deficit Results Laboratory Results: 04/23/19 04:10 04/23/19 04:10 04/23/19 04/23/19 04:10 04:10 WBC 11.6 H RBC 2.83 L Hgb 8.1 L Hct 24.8 L MCV 88 MCH 28.7 MCHC 32.8 RDW 20.2 H Plt Count 174 Seg Neutrophils % Not Reportable Sodium 139.2 Potassium 4.0 Chloride 107 Carbon Dioxide 24 Anion Gap 8 BUN 52 H Creatinine 2.03 H Est GFR ( Amer) 29 L Glucose 123 H Calcium 8.2 L 04/20/19 04/20/19 16:39 16:39 Creatine Kinase 49 Troponin I 0.040 NT-Pro-B Natriuret Pep 2320 H Impressions: Chest X-Ray 04/20/19 16:08 IMPRESSION: Cardiac enlargement. Linear atelectasis at the left base. Assessment and Plan - Diagnosis (1) Atrial fibrillation with rapid ventricular response Is this a current diagnosis for this admission?: Yes Plan: Rate controlled. Anticoagulated. Likely exacerbated by recent acute respiratory failure caused by underlying pneumonia. Patient not hypotensive anymore, will start low-dose p.o. Cardizem, and Coreg. Patient was started on IV fluids which raise her blood pressure however this morning she has bibasilar crackles. Will DC IV fluids. Initially was a started on IV drip and transitioned to p.o. because she could not tolerate Cardizem drip due to hypotension. Received 2 doses of IV digoxin. 04/22/2019 had discussed case with aeronautical research engineer for possible esmolol drip as patient was still in A. fib RVR and could not be started on Cardizem drip due to hypotension, he suggested volume resuscitation first if did not resolve for transfer to ICU for esmolol drip. (2) Healthcare-associated pneumonia Is this a current diagnosis for this admission?: Yes Plan: Patient is a resident of long-term with history of multiple hospitalizations. High risk for healthcare associated pneumonia. Likely due to gram-positive's. Started on broad-spectrum antibiotics to cover gram-positive signs Pseudomonas. Day 4 IV antibiotics. Day 4 IV levofloxacin renally dosed. Day 4 IV vancomycin renally dosed. Cultures no growth so far. Continue empiric IV antibiotics, follow cultures. (3) Acute respiratory failure with hypoxia Is this a current diagnosis for this admission?: Yes Plan: Due to #1/#2. Plan as above. (4) CHF (congestive heart failure) Qualifiers: Heart failure type: diastolic Heart failure chronicity: chronic Qualified Code(s): I50.32 - Chronic diastolic (congestive) heart failure Is this a current diagnosis for this admission?: Yes Plan: Chronic diastolic heart failure. Basilar crackles on physical examination. 10/20/2018. 2D echo. LVEF 65%. Inferior wall hypokinesis, right ventricular enlargement. Continue IV fluids, cardiac diet, low-dose beta-blockers, will restart JASON and diuretics once appropriate. (5) Chronic kidney disease, stage 3 Is this a current diagnosis for this admission?: Yes Plan: Nonoliguric. Mild improvement of creatinine. Baseline 1.6. Electrolytes WNL. Monitor vitals, monitor volume status, avoid nephrotoxic meds. Outpatient nephrology follow-up. (6) COPD exacerbation Is this a current diagnosis for this admission?: Yes Plan: Likely due to #1 #2. Not on home O2. Continue flutter valve, incentive spirometry, pulmonary toileting, LMA, LABA, ICS, IV steroids. Outpatient PCP and pulmonology follow-up. (7) Coronary artery disease Qualifiers: Coronary Disease-Associated Artery/Lesion type: unspecified vessel or lesion type Associated angina: without angina Is this a current diagnosis for this admission?: Yes Plan: Denies any anginal symptoms. Troponins negative. EKG no acute changes. Restart home meds. Adjust dosage as needed. Outpatient PCP follow-up (8) Diabetes mellitus type 2 in obese Is this a current diagnosis for this admission?: Yes Plan: Diabetic diet, sliding scale insulin, pre-meal insulin, long-acting insulin, Accu-Chek, hypoglycemia protocol. Restart home meds upon discharge. Adjust dosage as needed. (9) Hypothyroidism Qualifiers: Hypothyroidism type: unspecified Qualified Code(s): E03.9 - Hypothyroidism, unspecified Is this a current diagnosis for this admission?: Yes Plan: Not controlled. Levothyroxine is 0.025 mg however not sure if she is receiving it as her TSH is extremely elevated. TSH 83.9, T4 0.28, T3 2.66. Thyroxine increased to 75 MCG. Continue levothyroxine. Patient will need to get another TSH in 6 weeks for readjustment of her levothyroxine.
[2019-04-23] MEDS: ASPIRIN 81 MG TABLET, ENT COATED PO SCH (10:55)
[2019-04-23] MEDS: ENOXAPARIN SODIUM INJ 30 MG/0.3 ML DISP.SYRIN SUBCUT SCH (10:55)
[2019-04-23] MEDS: AMIODARONE HCL 200 MG TABLET PO SCH ×2 (10:56→23:18)
[2019-04-23] MEDS: ALLOPURINOL 300 MG TABLET PO SCH (10:57)
[2019-04-23] MEDS: MULTIVITAMIN TABLET PO SCH (10:57)
[2019-04-23] MEDS: DOCUSATE SODIUM 100 MG CAPSULE PO SCH ×2 (10:57→17:26)
[2019-04-23] MEDS: LEVOFLOXACIN 250 MG/D5W RTU 250 MG/50 ML RTUPB IV SCH (10:58)
[2019-04-23] MEDS: CHOLECALCIFEROL (D3) 1,000 UNIT (25 MCG) TABLET PO SCH (10:58)
[2019-04-23] MEDS: GUAIFENESIN/D-METHORPHAN (200-20 MG) SYRUP 10 ML PO SCH ×3 (10:59→17:27)
[2019-04-23] MEDS: FLUTICASONE/UMECLIDIN/VILANTER 100-62.5-25 MCG/DOSE IH SCH (10:59)
[2019-04-23] MEDS: CYCLOSPORINE 0.05% OPH EMULSIO 0.4 ML DROPERETTE OU SCH (11:00)
[2019-04-23] MEDS: NYSTATIN/DEXAMETH/DIPHEN SUSP 120 ML PO SCH ×4 (11:01→23:29)
[2019-04-23] MEDS: TIOTROPIUM BROMIDE DPI 5 CAP/KIT (18 MCG/CAP) IH SCH (11:01)
[2019-04-23] MEDS: DILTIAZEM HCL 30 MG TABLET PO SCH ×3 (11:59→23:17)
[2019-04-23] MEDS: LEVALBUTEROL HCL NEB 0.63 MG/3 ML AMPUL NEB SCH (20:13)
[2019-04-23] MEDS: IPRATROPIUM BROMIDE 0.02% NEB 0.5 MG/2.5 ML AMPUL NEB SCH (20:13)
[2019-04-23] MEDS ORDERED: CARVEDILOL 3.125 MG TABLET PO SCH (22:00)
[2019-04-23] MEDS: ATORVASTATIN CALCIUM 40 MG TABLET PO SCH (23:17)
[2019-04-23] MEDS: MIRTAZAPINE 15 MG TABLET PO SCH (23:18)
[2019-04-23] MEDS: METHYLPREDNISOLONE INJ 40 MG/1 ML SDV IV SCH (23:18)
[2019-04-23] MEDS: MELATONIN 5 MG TABLET PO SCH (23:29)
[2019-04-24 05:14] LABS: HEMATOCRIT 24.5 % (36.0-47.0); MEAN CORPUSCULAR HEMOGLOBIN 28.6 pg (27.0-33.4); MEAN CORPUSCULAR HGB CONC 32.7 g/dL (32.0-36.0); MEAN CORPUSCULAR VOLUME 87 fl (80-97); PLATELET COUNT 183 10^3/uL (150-450); RED CELL DISTRIBUTION WIDTH 20.5 % (11.5-14.0); WHITE BLOOD COUNT 13.4 10^3/uL (4.0-10.5)
[2019-04-24 05:33] LABS: ALBUMIN 2.7 g/dL (3.5-5.0); ALKALINE PHOSPHATASE 65 U/L (38-126); ANION GAP 8 (5-19); ASPARTATE AMINO TRANSFERASE 20 U/L (14-36); BILIRUBIN,DIRECT 0.2 mg/dL (0.0-0.4); BILIRUBIN,TOTAL 0.4 mg/dL (0.2-1.3); BLOOD UREA NITROGEN 53 mg/dL (7-20); CALCIUM 8.1 mg/dL (8.4-10.2); CARBON DIOXIDE 23 mmol/L (22-30); CHLORIDE 108 mmol/L (98-107); GLUCOSE 182 mg/dL (75-110); POTASSIUM 4.7 mmol/L (3.6-5.0); TOTAL PROTEIN 5.4 g/dL (6.3-8.2)
[2019-04-24 05:52] LABS: ABSOLUTE LYMPHOCYTES# (MANUAL) 0.4 10^3/uL (0.5-4.7); ANISOCYTOSIS 2+; BAND NEUTROPHILS % (MANUAL) 3 % (3-5); BASOPHILS % (MANUAL) 0 % (0-2); EOSINOPHILS % (MANUAL) 0 % (0-6); LYMPHOCYTES % (MANUAL) 3 % (13-45); MONOCYTES % (MANUAL) 0 % (3-13); SEGMENTED NEUTROPHILS % (MAN) 94 % (42-78); TOTAL CELLS COUNTED 100
[2019-04-24 05:54] LABS: PLATELET COMMENT ADEQUATE
[2019-04-24] MEDS: DILTIAZEM HCL 30 MG TABLET PO SCH ×3 (06:13→17:42)
[2019-04-24] MEDS: LEVOTHYROXINE SODIUM 0.075 MG TABLET PO SCH (06:13)
[2019-04-24] MEDS: PANTOPRAZOLE SODIUM 40 MG TABLET.DR PO SCH ×2 (06:13→16:26)
[2019-04-24] MEDS: METHYLPREDNISOLONE INJ 40 MG/1 ML SDV IV SCH ×3 (06:14→22:12)
[2019-04-24] MEDS: IPRATROPIUM BROMIDE 0.02% NEB 0.5 MG/2.5 ML AMPUL NEB SCH ×3 (07:37→20:36)
[2019-04-24] MEDS: LEVALBUTEROL HCL NEB 0.63 MG/3 ML AMPUL NEB SCH ×3 (07:37→20:36)
[2019-04-24] MEDS: OXYCODONE-ACETAMINOPHEN 5-325 MG TABLET PO PRN (07:52)
[2019-04-24] MEDS: SERTRALINE HCL 50 MG TABLET PO SCH (07:53)
[2019-04-24] MEDS: INSULIN LISPRO 100 UNIT/ML 3 ML VIAL SUBCUT SCH ×4 (07:53→22:11)
[2019-04-24] MEDS: FERROUS SULFATE 325 MG TABLET PO SCH (07:53)
[2019-04-24] MEDS ORDERED: CARVEDILOL 6.25 MG TABLET PO SCH (10:00)
[2019-04-24] MEDS ORDERED: CARVEDILOL 3.125 MG TABLET PO SCH (10:00)
[2019-04-24] MEDS: GUAIFENESIN/D-METHORPHAN (200-20 MG) SYRUP 10 ML PO SCH ×3 (10:01→17:42)
[2019-04-24] MEDS: METOPROLOL TARTRATE 25 MG TABLET PO SCH ×2 (10:01→22:13)
[2019-04-24] MEDS: FLUTICASONE/UMECLIDIN/VILANTER 100-62.5-25 MCG/DOSE IH SCH (10:01)
[2019-04-24] MEDS: DOCUSATE SODIUM 100 MG CAPSULE PO SCH ×2 (10:01→17:42)
[2019-04-24] MEDS: ENOXAPARIN SODIUM INJ 30 MG/0.3 ML DISP.SYRIN SUBCUT SCH (10:01)
[2019-04-24] MEDS: TIOTROPIUM BROMIDE DPI 5 CAP/KIT (18 MCG/CAP) IH SCH (10:01)
[2019-04-24] MEDS: CYCLOSPORINE 0.05% OPH EMULSIO 0.4 ML DROPERETTE OU SCH (10:01)
[2019-04-24] MEDS: ALLOPURINOL 300 MG TABLET PO SCH (10:02)
[2019-04-24] MEDS: CHOLECALCIFEROL (D3) 1,000 UNIT (25 MCG) TABLET PO SCH (10:02)
[2019-04-24] MEDS: MULTIVITAMIN TABLET PO SCH (10:02)
[2019-04-24] MEDS: ASPIRIN 81 MG TABLET, ENT COATED PO SCH (10:02)
[2019-04-24] MEDS: AMIODARONE HCL 200 MG TABLET PO SCH ×2 (10:02→22:10)
[2019-04-24] MEDS: NYSTATIN/DEXAMETH/DIPHEN SUSP 120 ML PO SCH ×4 (10:03→22:13)
--- NOTE | 2019-04-24 10:30 | PDOC PROGRESS REPORT ---
Subjective Progress Note for:: 04/24/19 Subjective:: 78-year-old female past medical history of A. fib, CHF, CAD, dyslipidemia, hypertension, COPD, diabetes, CKD, GERD, arthritis, psoriasis, depression, who is a resident of intermediate at [facility] presenting to ED complaining of worsening productive cough, associated with low energy, anorexia, and shortness of breath. Patient is a resident of intermediate, stating that everybody is sick around her, today she went to see her lawn care worker Dr. Ventura and was noted to be short of breath and was sent over to ED for further evaluation. Also complaining of sore abdomen due to excessive coughing, otherwise denying any fever, chills, nausea, vomiting, diarrhea, constipation or any urinary symptoms. Patient was found to be in A. fib RVR with low BP. Hospitalist consulted for admission. 04/21/2019. No acute events overnight. Patient sitting in recliner, sitting she is feeling somewhat better, cough has improved slightly, there is any fever, chi lls, nausea nausea, vomiting, diarrhea, constipation or any urinary symptoms. Heart rate in low 100s, still on amiodarone drip, pressure low normal. 04/22/2019. No acute events overnight, patient still on A. fib RVR, amiodarone drip switched to p.o. amiodarone, BP is still too low to start on Cardizem drip. Received another dose of dig toxin. Patient is stating she is feeling better, coughing has improved, abdominal pain has improved, p.o. tolerant, denies any fever, chills, nausea, vomiting, diarrhea, constipation or any urinary symptoms. 04/23/2019. No acute events overnight, patient is rate controlled, on p.o. amiodarone, BPs are picking up. Stating that she is feeling better than y esterday, still complaining of sore abdomen, denies any fever, chills, nausea, vomiting, diarrhea, constipation or any urinary symptoms. 04/24/2019. No acute events overnight. Patient alert oriented x3, stating that she is feeling better than yesterday, denies any fever, chills, nausea, vomiting, diarrhea, constipation or any urinary symptoms. A. fib is rate controlled however patient's pressures are running in the 90s. Reason For Visit: AFIB RVR,HYPOTENSION,PNUEMONIA Physical Exam Vital Signs: Temp Pulse Resp BP Pulse Ox 98.2 F 87 16 88/54 L 90 L 04/24/19 07:17 04/24/19 07:37 04/24/19 07:37 04/24/19 07:17 04/24/19 07:37 Intake & Output 04/23/19 04/24/19 04/25/19 06:59 06:59 06:59 Intake Total 2523 1168 Output Total 400 300 Balance 2123 868 Weight 78.3 kg 80.2 kg General appearance: PRESENT: no acute distress, well-developed, well-nourished Head exam: PRESENT: atraumatic, normocephalic Respiratory exam: PRESENT: clear to auscultation kaylee. ABSENT: rales, rhonchi, wheezes Cardiovascular exam: PRESENT: irregular rhythm. ABSENT: diastolic murmur, rubs, systolic murmur GI/Abdominal exam: PRESENT: normal bowel sounds, soft. ABSENT: distended, guarding, mass, organolmegaly, rebound, tenderness Neurological exam: PRESENT: alert, awake, oriented to person, oriented to place, oriented to time, oriented to situation, CN II-XII grossly intact. ABSENT: motor sensory deficit Results Laboratory Results: 04/24/19 04:07 04/24/19 04:07 04/24/19 04/24/19 04:07 04:07 WBC 13.4 H RBC 2.80 L Hgb 8.0 L Hct 24.5 L MCV 87 MCH 28.6 MCHC 32.7 RDW 20.5 H Plt Count 183 Seg Neutrophils % Not Reportable Sodium 138.6 Potassium 4.7 Chloride 108 H Carbon Dioxide 23 Anion Gap 8 BUN 53 H Creatinine 2.38 H Est GFR ( Amer) 24 L Glucose 182 H Calcium 8.1 L Total Bilirubin 0.4 AST 20 Alkaline Phosphatase 65 Total Protein 5.4 L Albumin 2.7 L 04/20/19 04/20/19 16:39 16:39 Creatine Kinase 49 Troponin I 0.040 NT-Pro-B Natriuret Pep 2320 H Impressions: Chest X-Ray 04/20/19 16:08 IMPRESSION: Cardiac enlargement. Linear atelectasis at the left base. Assessment and Plan - Diagnosis (1) Atrial fibrillation with rapid ventricular response Is this a current diagnosis for this admission?: Yes Plan: Rate controlled. Anticoagulated. Likely exacerbated by recent acute respiratory failure caused by underlying pneumonia. SBP is still running in the 90s, however asymptomatic, continue low-dose Cardizem and metoprolol. Continue cautious volume resuscitation guided by volume status and vitals. If pressures are stable she could be discharged tomorrow. Initially was a started on IV drip and transitioned to p.o. because she could not tolerate Cardizem drip due to hypotension. Received 2 doses of IV digoxin. 04/22/2019 had discussed case with piano regulator for possible esmolol drip as patient was still in A. fib RVR and could not be started on Cardizem drip due to hypotension, he suggested volume resuscitation first if did not resolve for transfer to ICU for esmolol drip. (2) Healthcare-associated pneumonia Is this a current diagnosis for this admission?: Yes Plan: Patient is a resident of intermediate with history of multiple hospitalizations. High risk for healthcare associated pneumonia. Likely due to gram-positive's. Started on broad-spectrum antibiotics to cover gram-positive signs Pseudomonas. Day 5 IV antibiotics. Day 5 IV levofloxacin renally dosed. Day 5 IV vancomycin renally dosed. Afebrile, cultures negative. Continue empiric IV antibiotics, follow cultures. (3) Acute respiratory failure with hypoxia Is this a current diagnosis for this admission?: Yes Plan: Due to #1/#2. Plan as above. (4) CHF (congestive heart failure) Qualifiers: Heart failure type: diastolic Heart failure chronicity: chronic Qualified Code(s): I50.32 - Chronic diastolic (congestive) heart failure Is this a current diagnosis for this admission?: Yes Plan: Chronic diastolic heart failure. Euvolemic does not seem to be acutely exacerbated. 10/20/2018. 2D echo. LVEF 65%. Inferior wall hypokinesis, right ventricular enlargement. Continue cardiac diet, low-dose beta-blockers, low-dose beta-blockers. SBPs still in the 90s. Will restart JASON and diuretics once appropriate. (5) Chronic kidney disease, stage 3 Is this a current diagnosis for this admission?: Yes Plan: Nonoliguric. Mild improvement of creatinine. Baseline 1.6. Electrolytes WNL. Monitor vitals, monitor volume status, avoid nephrotoxic meds. Outpatient nephrology follow-up. (6) COPD exacerbation Is this a current diagnosis for this admission?: Yes Plan: Likely due to #1 #2. Not on home O2. Continue flutter valve, incentive spirometry, pulmonary toileting, LMA, LABA, ICS, IV steroids. Outpatient PCP and pulmonology follow-up. (7) Coronary artery disease Qualifiers: Coronary Disease-Associated Artery/Lesion type: unspecified vessel or lesion type Associated angina: without angina Is this a current diagnosis for this admission?: Yes Plan: Denies any anginal symptoms. Troponins negative. EKG no acute changes. Restart home meds. Adjust dosage as needed. Outpatient PCP follow-up (8) Diabetes mellitus type 2 in obese Is this a current diagnosis for this admission?: Yes Plan: Diabetic diet, sliding scale insulin, pre-meal insulin, long-acting insulin, Accu-Chek, hypoglycemia protocol. Restart home meds upon discharge. Adjust dosage as needed. (9) Hypothyroidism Qualifiers: Hypothyroidism type: unspecified Qualified Code(s): E03.9 - Hypothyroidism, unspecified Is this a current diagnosis for this admission?: Yes Plan: Not controlled. Levothyroxine is 0.025 mg however not sure if she is receiving it as her TSH is extremely elevated. TSH 83.9, T4 0.28, T3 2.66. Thyroxine increased to 75 MCG. Continue levothyroxine. Patient will need to get another TSH in 6 weeks for readjustment of her levothyroxine.
[2019-04-24] MEDS: NORMAL SALINE 1000 ML 1,000 ML IV PRN (11:15)
[2019-04-24] MEDS ORDERED: NYSTATIN CREAM 15 GM TP PRN (20:13)
[2019-04-24] MEDS: VANCOMYCIN HCL 1,250 MG in DEXTROSE 5%-WATER 250 ML IV SCH (22:10)
[2019-04-24] MEDS: MELATONIN 5 MG TABLET PO SCH (22:10)
[2019-04-24] MEDS: MIRTAZAPINE 15 MG TABLET PO SCH (22:10)
[2019-04-24] MEDS: ATORVASTATIN CALCIUM 40 MG TABLET PO SCH (22:11)
[2019-04-25] MEDS: DILTIAZEM HCL 30 MG TABLET PO SCH ×4 (04:30→17:02)
[2019-04-25] MEDS: METHYLPREDNISOLONE INJ 40 MG/1 ML SDV IV SCH ×2 (05:42→13:07)
[2019-04-25] MEDS: PANTOPRAZOLE SODIUM 40 MG TABLET.DR PO SCH ×2 (05:42→17:02)
[2019-04-25] MEDS: LEVOTHYROXINE SODIUM 0.075 MG TABLET PO SCH (05:43)
[2019-04-25] MEDS: LEVALBUTEROL HCL NEB 0.63 MG/3 ML AMPUL NEB SCH ×2 (07:20→14:13)
[2019-04-25] MEDS: IPRATROPIUM BROMIDE 0.02% NEB 0.5 MG/2.5 ML AMPUL NEB SCH ×2 (07:20→14:13)
[2019-04-25] MEDS: INSULIN LISPRO 100 UNIT/ML 3 ML VIAL SUBCUT SCH ×3 (07:57→17:03)
[2019-04-25] MEDS: FERROUS SULFATE 325 MG TABLET PO SCH (07:58)
[2019-04-25] MEDS: SERTRALINE HCL 50 MG TABLET PO SCH (07:58)
--- NOTE | 2019-04-25 10:48 | PDOC TRANSFER SUMMARY ---
General Admission Date/PCP: 04/20/19 18:42 GERSON MAY Resuscitation Status: Do Not Resuscitate - Transfer Diagnosis (1) Atrial fibrillation with rapid ventricular response Is this a current diagnosis for this admission?: Yes (2) Healthcare-associated pneumonia Is this a current diagnosis for this admission?: Yes (3) Acute respiratory failure with hypoxia Is this a current diagnosis for this admission?: Yes (4) CHF (congestive heart failure) Is this a current diagnosis for this admission?: Yes (5) Chronic kidney disease, stage 3 Is this a current diagnosis for this admission?: Yes (6) COPD exacerbation Is this a current diagnosis for this admission?: Yes (7) Coronary artery disease Is this a current diagnosis for this admission?: Yes (8) Diabetes mellitus type 2 in obese Is this a current diagnosis for this admission?: Yes (9) Hypothyroidism Is this a current diagnosis for this admission?: Yes - Transfer Medications Home Medications: Acetaminophen [Tylenol] 650 mg PO Q4HP PRN 04/20/19 Allopurinol [Zyloprim 300 mg Tablet] 300 mg PO DAILY 04/20/19 Apremilast [Otezla] 30 mg PO Q12 04/20/19 Ascorbic Acid [Vitamin C 500 mg Tablet] 500 mg PO DAILY 04/20/19 Aspirin [Ecotrin 81 mg EC Tablet] 81 mg PO DAILY 04/20/19 Atorvastatin Calcium [Lipitor 40 mg Tablet] 40 mg PO QHS 04/20/19 Benzonatate [Tessalon Perle 100 mg Capsule] 200 mg PO Q8HP PRN 04/20/19 Calcium Carbonate/Vitamin D3 [Calcium 600-Vit D3 400 Tablet] 2 each PO DAILY 04/20/19 Cholecalciferol (Vitamin D3) [Vitamin D3 1000 Unit Tablet] 1,000 unit PO DAILY 04/20/19 Cyclosporine 0.05% Oph Emulsio [Restasis 0.05% Oph Emulsion Pf 0.4 ml] 1 drop OU DAILY 04/20/19 Ferrous Sulfate [Feosol 325 mg Tablet] 325 mg PO QAM 04/20/19 Fluticasone/Umeclidin/Vilanter [Trelegy 100-62.5-25 Mcg Ellipta 14 Dose/Dpi] 1 puff IH DAILY 04/20/19 Insulin Glargine,Hum.rec.anlog [Sarahaglbeatriz Kwikpen U-100] 20 unit SQ QHS 04/20/19 Insulin Lispro [Humalog Insulin (Lispro) 100 unit/mL] See Protocol SUBCUT .SLD SCALE 04/20/19 Ipratropium/Albuterol Sulfate [Duoneb 3 ml Ampul] 3 ml NEB RTQ6HP PRN 04/20/19 Lidocaine [Lidoderm 5% (700 mg) Transdermal Patch] 1 patch TP QAM 04/20/19 Mag Hydrox/Al Hydrox/Simeth [Maalox Plus Susp 30 Udcup] 20 ml PO DAILYP PRN 04/20/19 Magnesium Oxide [Mag-Ox 400 mg Tablet] 400 mg PO BID 04/20/19 Melatonin [Melatonin 5 mg Tablet] 5 mg PO QHS 04/20/19 Mirtazapine 7.5 mg PO QHS 04/20/19 Multivitamin [One-A-Day Essential] 1 each PO DAILY 04/20/19 Pantoprazole Sodium [Protonix [address] Tablet] 40 mg PO Q6AM 04/20/19 Prednisone [Deltasone 5 mg Tablet] 5 mg PO QAM 04/20/19 Sertraline HCl [Zoloft 50 mg Tablet] 50 mg PO QAM 04/20/19 Tiotropium [place] [Spiriva Handihaler 5 Cap/Kit (18 Mcg/Cap)] 1 cap IH DAILY 04/20/19 Vit A/Vit C/Vit E/Zinc/Copper [Preservision Areds Softgel] 2 each PO QAM 04/20/19 Fexofenadine/Pseudoephedrine [Hyacinth-D 12 Hour Tablet] 1 each PO BID 04/21/19 Transfer Medications: Current Medications Acetaminophen (Tylenol 325 Mg Tablet) 650 mg PO Q4HP PRN PRN Reason: FEVER >101 Stop: 05/20/19 18:46 Al Hydrox/Mg Hydrox/Simethicone (Maalox Plus Susp 30 Udcup) 15 ml PO Q6HP PRN PRN Reason: HEARTBURN Stop: 05/20/19 18:46 Allopurinol (Zyloprim 300 Mg Tablet) 300 mg PO DAILY CECELIA Stop: 05/21/19 09:59 Last Admin: 04/24/19 10:02 Dose: 300 mg Documented by: Amiodarone HCl (Cordarone 200 Mg Tablet) 400 mg PO Q12 CECELIA Stop: 05/21/19 21:59 Last Admin: 04/24/19 22:10 Dose: 400 mg Documented by: Aspirin (Ecotrin 81 Mg Ec Tablet) 81 mg PO DAILY CECELIA Stop: 05/21/19 09:59 Last Admin: 04/24/19 10:02 Dose: 81 mg Documented by: Atorvastatin Calcium (Lipitor 40 Mg Tablet) 40 mg PO QHS CECELIA Stop: 05/21/19 21:59 Last Admin: 04/24/19 22:11 Dose: 40 mg Documented by: Cholecalciferol (Vitamin D3 1000 Unit Tablet) 1,000 unit PO DAILY CECELIA Stop: 05/21/19 09:59 Last Admin: 04/24/19 10:02 Dose: 1,000 unit Documented by: Cyclosporine (Restasis 0.05% Oph Emulsion Pf 0.4 Ml) 1 drop OU DAILY CECELIA Stop: 05/21/19 09:59 Last Admin: 04/24/19 10:01 Dose: 1 drop Documented by: Dextrose (Dextrose Inj 50% Syringe (25 Gm/50 Ml)) 12.5 gm IV PRN PRN; Protocol PRN Reason: FOR BG 50-69 IN ALERT PATIENT Stop: 05/21/19 09:06 Dextrose (Dextrose Inj 50% Syringe (25 Gm/50 Ml)) 25 gm IV PRN PRN; Protocol PRN Reason: PER PROTOCOL Stop: 05/21/19 09:06 Diltiazem HCl (Cardizem 30 Mg Tablet) 30 mg PO Q6 CECELIA Stop: 05/24/19 11:59 Last Admin: 04/25/19 05:42 Dose: 30 mg Documented by: Diphenhydramine/Hydrocorti/Nystatin (Magic Mouthwash (Omh Formula) Susp) 5 ml PO QID CECELIA Stop: 05/21/19 09:59 Last Admin: 04/24/19 22:13 Dose: 5 ml Documented by: Docusate Sodium (Colace 100 Mg Capsule) 100 mg PO BID CECELIA Stop: 05/21/19 09:59 Last Admin: 04/24/19 17:42 Dose: 100 mg Documented by: Enoxaparin Sodium (Lovenox Inj 30 Mg/0.3 Ml Disp.Syrin) 30 mg SUBCUT DAILY [facility] Stop: 05/20/19 19:59 Last Admin: 04/24/19 10:01 Dose: 30 mg Documented by: Ferrous Sulfate (Feosol 325 Mg Tablet) 325 mg PO QAM [facility] Stop: 05/21/19 07:59 Last Admin: 04/25/19 07:58 Dose: 325 mg Documented by: Fluticasone/Vilanterol (Trelegy 100-62.5-25 Mcg Ellipta 14 Dose/Dpi) 1 inh IH DAILY [facility] Stop: 05/21/19 09:59 Last Admin: 04/24/19 10:01 Dose: 1 puff Documented by: Glucagon (Glucagen Inj 1 Mg Vial) 1 mg IM PRN PRN; Protocol PRN Reason: Evaluate for BG < 70 Stop: 05/21/19 09:06 Glucose (Glutose 40% Gel 15 Gm Tube) 15 gm PO PRN PRN; Protocol PRN Reason: FOR BG 50-69 IN ALERT PATIENT Stop: 05/21/19 09:06 Glucose (Glutose 40% Gel 15 Gm Tube) 30 gm PO PRN PRN; Protocol PRN Reason: FOR BG < 50 IN ALERT PATIENT Stop: 05/21/19 09:06 Guaifenesin/Dextromethorphan (Robitussin-Dm Syrup 10 Ml Udcup) 10 ml PO TID [facility] Stop: 05/21/19 09:59 Last Admin: 04/24/19 17:42 Dose: 10 ml Documented by: Vancomycin HCl 1,250 mg/ (Dextrose) 250 mls @ 166.667 mls/hr IV Q2D@2200 [facility] Stop: 04/27/19 21:59 Last Infusion: 04/25/19 08:08 Dose: Infused Documented by: Levofloxacin/Dextrose (Levaquin Rtu 250 Mg/D5w 50 Ml Premix) 250 mg in 50 mls @ 50 mls/hr IV Q2D@1000 [facility] Stop: 04/30/19 09:59 Last Infusion: 04/23/19 12:13 Dose: Infused Documented by: Sodium Chloride (Nacl 0.9% 1000 Ml Iv Soln) 1,000 mls @ 40 mls/hr IV CONTINUOUS PRN PRN Reason: THIS MED IS NOT "PRN" Stop: 05/23/19 18:48 Last Infusion: 04/25/19 08:08 Dose: Infused Documented by: Insulin Human Lispro (Humalog Insulin 100 Unit/1 Ml 3 Ml Vial) 0 - 12 unit SUBCUT [facility]; Protocol Stop: 05/21/19 10:59 Last Admin: 04/25/19 07:57 Dose: 6 unit Documented by: Ipratropium [place] (Atrovent 0.02% Neb 0.5 Mg/2.5 Ml Ampul) 0.5 mg NEB [id number] [facility] Stop: 05/23/19 19:59 Last Admin: 04/25/19 07:20 Dose: 0.5 mg Documented by: Levalbuterol HCl (Xopenex Neb 0.63 Mg/3 Ml Ampul) 0.63 mg NEB [id number] [facility] Stop: 05/23/19 19:59 Last Admin: 04/25/19 07:20 Dose: 0.63 mg Documented by: Levothyroxine Sodium (Synthroid 0.075 Mg Tablet) 0.075 mg PO Q6AM [facility] Stop: 05/22/19 05:59 Last Admin: 04/25/19 05:43 Dose: 0.075 mg Documented by: Melatonin (Melatonin 5 Mg Tablet) 5 mg PO QHS [facility] Stop: 05/21/19 21:59 Last Admin: 04/24/19 22:10 Dose: 5 mg Documented by: Methylprednisolone Sodium Succinate (Solu-Medrol Inj/Pf 40 Mg/1 Ml Sdv) 40 mg IV Q8 [facility] Stop: 05/23/19 21:59 Last Admin: 04/25/19 05:42 Dose: 40 mg Documented by: Metoprolol Tartrate (Lopressor Inj/Pf 5 Mg/5 Ml Sdv) 2.5 mg IV Q6HP PRN PRN Reason: HR >120, HOLD MAP <65 Stop: 05/21/19 18:33 Metoprolol Tartrate (Lopressor 25 Mg Tablet) 6.25 mg PO Q12 CECELIA Stop: 05/24/19 09:59 Last Admin: 04/24/19 22:13 Dose: Not Given Documented by: Mirtazapine (Remeron 15 Mg Tablet) 7.5 mg PO QHS [facility] Stop: 05/21/19 21:59 Last Admin: 04/24/19 22:10 Dose: 7.5 mg Documented by: Multivitamins (Tab-A-Deana (Multiple Vitamin) Tablet) 1 tab PO DAILY CECELIA Stop: 05/21/19 09:59 Last Admin: 04/24/19 10:02 Dose: 1 tab Documented by: Nystatin (Mycostatin Cream 15 Gm) 1 applic TP Q4HP PRN PRN Reason: FOR IRRITATION Stop: 05/01/19 20:12 Oxycodone/Acetaminophen (Percocet 5-325 Mg Tablet) 1 tab PO Q6HP PRN PRN Reason: FOR PAIN SCALE 3-5 Stop: 04/27/19 18:46 Last Admin: 04/24/19 07:52 Dose: 1 tab Documented by: Pantoprazole Sodium (Protonix [address] Tablet) 40 mg PO BID@0600,1700 CECELIA Stop: 05/21/19 05:59 Last Admin: 04/25/19 05:42 Dose: 40 mg Documented by: Patient Own Medication (Apremilast [Otezla]) 30 mg PO .Q12 CECELIA Stop: 05/21/19 09:59 Sertraline HCl (Zoloft 50 Mg Tablet) 50 mg PO QAM CECELIA Stop: 05/21/19 07:59 Last Admin: 04/25/19 07:58 Dose: 50 mg Documented by: Tiotropium [place] (Spiriva Handihaler 5 Cap/Kit (18 Mcg/Cap)) 1 cap IH DAILY CECELIA Stop: 05/23/19 09:59 Last Admin: 04/24/19 10:01 Dose: 1 cap Documented by: - Allergies Allergies/Adverse Reactions: methotrexate [Methotrexate] Allergy (Verified 04/20/19 16:05) Penicillins Allergy (Verified 04/21/19 11:29) Hospital Course Hospital Course: 78-year-old female past medical history of A. fib, CHF, CAD, dyslipidemia, hypertension, COPD, diabetes, CKD, GERD, arthritis, psoriasis, depression, who is a resident of [facility] at [facility] presenting to ED complaining of worsening productive cough, associated with low energy, anorexia, and shortness of breath. Patient is a resident of [facility], stating that everybody is sick around her, today she went to see her document manager Dr. Ventura and was noted to be short of breath and was sent over to ED for further evaluation. Also complaining of sore abdomen due to excessive coughing, otherwise denying any fever, chills, nausea, vomiting, diarrhea, constipation or any urinary symptoms. Patient was found to be in A. fib RVR with low BP. Hospitalist consulted for admission. (1) Atrial fibrillation with rapid ventricular response Rate controlled. Not anticoagulated due to history of GI bleed. Likely exacerbated by recent acute respiratory failure caused by underlying pneumonia. Initially was a started on amiodarone drip, and transitioned to p.o. amiodarone because she could not tolerate Cardizem drip due to hypotension. Received 2 doses of IV digoxin. Once rate controlled and hypotension resolved patient was restarted on Cardizem immediate release, and low-dose metoprolol tartrate. Patient's blood pressure needs to be done manually because when measured digitally BP is usually hypotensive. Please continue measuring BPs manually if hypotensive on digital. Please continue low-dose metoprolol tartrate, low-dose Cardizem (2) Healthcare-associated pneumonia Patient is a resident of [facility] with history of multiple hospitalizations. High risk for healthcare associated pneumonia. Likely due to gram-positive's. Started on broad-spectrum antibiotics to cover gram-positive signs Pseudomonas. Received 5 days of IV antibiotics. Received 5 days of IV levofloxacin renal dose. Received 5 days of IV vancomycin renally dose. Afebrile, cultures negative. Continue p.o. levofloxacin 250 mg every 48 hours for another doses. (3) Acute respiratory failure with hypoxia Due to #1/#2. SPO2 WNL on room air at the time of discharge. (4) CHF (congestive heart failure) Chronic diastolic heart failure. Euvolemic does not seem to be acutely exacerbated. 10/20/2018. 2D echo. LVEF 65%. Inferior wall hypokinesis, right ventricular enlargement. Was started on cardiac diet, beta-blockers, lisinopril and diuretics held due to soft BPs Carvedilol was switched to low-dose metoprolol as carvedilol due to underlying history of COPD. Lisinopril was held due to soft BPs and worsening kidney function,restart once appropriate. Diuretics were held due to soft BP and worsening kidney function, restart once appropriate. Please check BPs manually as they should BPs are usually in the 90s. (5) Chronic kidney disease, stage 3 Nonoliguric. Makes adequate urine output. Mild improvement of creatinine, not back to baseline. This could be new baseline. Baseline 1.6. Electrolytes WNL. Monitored vitals, monitor volume status, avoided nephrotoxic meds. Follow-up with nephrology and PCP. (6) COPD exacerbation Likely due to #1 #2. Not on home O2. SPO2 WNL on RA. Was started on pulmonary toileting, LMA, LABA, ICS, steroids. Day 3 p.o. steroids. Please continue another 3 days. Outpatient PCP and pulmonology follow-up. (7) Coronary artery disease Denied any anginal symptoms. Troponins negative. EKG no acute changes. Continued on antiplatelets, low-dose metoprolol. JASON held due to worsening kidney function and hypotension. Restart once appropriate. Outpatient PCP and cardiology follow-up. (8) Diabetes mellitus type 2 in obese Hemoglobin A1c 6.8. Mildly hyperglycemic on this admission most likely due to p.o. steroids. Started on diabetic diet, sliding scale insulin, pre-meal insulin, long-acting insulin, Accu-Chek, hypoglycemia protocol. Adjust dosage as needed. Continue diabetic diet, Accu-Chek, hypoglycemia protocol and restart home dosage upon discharge. Patient's insulin needs to be titrated based on home blood glucose level. Note she is on steroids for an another 3 days and she may have elevated blood glucose levels. (9) Hypothyroidism Severe hypothyroidism. Not sure if her hypotension is due to severe hypothyroidism. Home dosage is levothyroxine is 0.025 mg however not sure if she is receiving it. TSH 83.9, T4 0.28, T3 2.66. Levothyroxine was increased to 75 MCG, patient's levothyroxine needs to be uptitrated until she is euthyroid. She will need TSH level rechecked in 4 to 6 weeks. Patient is to take levothyroxine 1 and 1/2 hours before breakfast on empty stomach every day. Physical Exam Vital Signs: Temp Pulse Resp BP Pulse Ox 97.6 F 80 16 118/64 95 04/25/19 07:05 04/25/19 07:20 04/25/19 07:20 04/25/19 07:05 04/25/19 07:20 Intake & Output 04/24/19 04/25/19 04/26/19 06:59 06:59 06:59 Intake Total 2824 968 2481 Output Total 300 Balance 700 025 6815 Weight 80.2 kg 80.8 kg General appearance: PRESENT: mild distress Respiratory exam: PRESENT: clear to auscultation kaylee. ABSENT: rales, rhonchi, wheezes Cardiovascular exam: PRESENT: RRR. ABSENT: diastolic murmur, rubs, systolic murmur Pulses: PRESENT: normal dorsalis pedis pul GI/Abdominal exam: PRESENT: normal bowel sounds, soft. ABSENT: distended, guarding, mass, organolmegaly, rebound, tenderness Neurological exam: PRESENT: alert, awake, oriented to person, oriented to place, oriented to time, oriented to situation, CN II-XII grossly intact. ABSENT: motor sensory deficit Results Laboratory Results: 04/24/19 04:07 04/24/19 04:07 04/20/19 04/20/19 16:39 16:39 Creatine Kinase 49 Troponin I 0.040 NT-Pro-B Natriuret Pep 2320 H Impressions: Chest X-Ray 04/20/19 16:08 IMPRESSION: Cardiac enlargement. Linear atelectasis at the left base.
[2019-04-25] MEDS: DOCUSATE SODIUM 100 MG CAPSULE PO SCH ×2 (10:53→17:02)
[2019-04-25] MEDS: FLUTICASONE/UMECLIDIN/VILANTER 100-62.5-25 MCG/DOSE IH SCH (10:53)
[2019-04-25] MEDS: AMIODARONE HCL 200 MG TABLET PO SCH (10:53)
[2019-04-25] MEDS: METOPROLOL TARTRATE 25 MG TABLET PO SCH (10:53)
[2019-04-25] MEDS: ALLOPURINOL 300 MG TABLET PO SCH (10:53)
[2019-04-25] MEDS: ASPIRIN 81 MG TABLET, ENT COATED PO SCH (10:53)
[2019-04-25] MEDS: MULTIVITAMIN TABLET PO SCH (10:53)
[2019-04-25] MEDS: CHOLECALCIFEROL (D3) 1,000 UNIT (25 MCG) TABLET PO SCH (10:53)
[2019-04-25] MEDS: TIOTROPIUM BROMIDE DPI 5 CAP/KIT (18 MCG/CAP) IH SCH (10:53)
[2019-04-25] MEDS: NYSTATIN/DEXAMETH/DIPHEN SUSP 120 ML PO SCH ×3 (10:54→17:02)
[2019-04-25] MEDS: GUAIFENESIN/D-METHORPHAN (200-20 MG) SYRUP 10 ML PO SCH ×3 (10:54→17:01)
[2019-04-25] MEDS: CYCLOSPORINE 0.05% OPH EMULSIO 0.4 ML DROPERETTE OU SCH (10:54)
[2019-04-25] MEDS: ENOXAPARIN SODIUM INJ 30 MG/0.3 ML DISP.SYRIN SUBCUT SCH (10:55)
[2019-04-25] MEDS: LEVOFLOXACIN 250 MG/D5W RTU 250 MG/50 ML RTUPB IV SCH (10:55)
[2019-04-25] MEDS ORDERED: GLUCAGON,HUMAN RECOMB 1 MG INJ IM PRN (11:40)
[2019-04-25] MEDS ORDERED: DEXTROSE 40% GEL 15 GM TUBE PO PRN ×2 (11:40)
[2019-04-25] MEDS ORDERED: DEXTROSE 50%-WATER 25 GM/50 ML DISP.SYRIN IV PRN ×2 (11:40)
[2019-04-25] MEDS ORDERED: INSULIN LISPRO 100 UNIT/ML 3 ML VIAL ONE ×2 (14:28→15:11)
[2019-04-25] MEDS ORDERED: INSULIN LISPRO 100 UNIT/ML 3 ML VIAL SUBCUT ONE ×2 (14:30→16:00)
[2019-04-25] MEDS ORDERED: INSULIN LISPRO 100 UNIT/ML 3 ML VIAL SUBCUT SCH (16:00)
[2019-04-25 18:04] VITALS: BP 118/64
--- NOTE | 2019-05-06 11:11 | PDOC H&P ---
History of Present Illness Admission Date/PCP: 04/20/19 18:42 GERSON MAY History of Present Illness: 78-year-old female past medical history of A. fib, CHF, CAD, dyslipidemia, hypertension, COPD, diabetes, CKD, GERD, arthritis, psoriasis, depression, who is a resident of custodial at [facility] presenting to ED complaining of worsening productive cough, associated with low energy, anorexia, and shortness of breath. Patient is a resident of custodial, stating that everybody is sick around her, today she went to see her calculating machine mechanic Dr. Ventura and was noted to be short of breath and was sent over to ED for further evaluation. Also complaining of sore abdomen due to excessive coughing, otherwise denying any fever, chills, nausea, vomiting, diarrhea, constipation or any urinary symptoms. Patient was found to be in A. fib RVR with low BP. Hospitalist consulted for admission. Past Medical History Cardiac Medical History: Reports: Atrial Fibrillation, Congestive Heart Failure, Coronary Artery Disease - With 2 stents in the past, Hyperlipidema, Hypertension Pulmonary Medical History: Reports: Chronic Obstructive Pulmonary Disease (COPD), Pneumonia, Respiratory Failure Denies: Tuberculosis Neurological Medical History: Denies: Migraine, Seizures Endocrine Medical History: Reports: Diabetes Mellitus Type 2 Renal/ Medical History: Denies: End Stage Renal Disease GI Medical History: Reports: Gastroesophageal Reflux Disease Musculoskeltal Medical History: Reports: Arthritis Skin Medical History: Reports: Psoriasis Psychiatric Medical History: Reports: Depression Denies: Bipolar Disorder Hematology: Reports: Anemia Denies: Bleeding Tendencies Past Surgical History Past Surgical History: Reports: Cardiac Catheterization, Herniorrhaphy, Hysterectomy Denies: Pacemaker Social History Smoking Status: Former Smoker Electronic Cigarette use?: No Last Time Smoked: 25 yrs ago Frequency of Alcohol Use: None Hx Recreational Drug Use: No Drugs: None Hx Prescription Drug Abuse: No - Advance Directive Resuscitation Status: Do Not Resuscitate Family History Family History: Reviewed & Not Pertinent, CAD Parental Family History Reviewed: Yes Children Family History Reviewed: Yes Sibling(s) Family History Reviewed.: Yes Medication/Allergy Home Medications: Acetaminophen [Tylenol] 650 mg PO Q4HP PRN 04/20/19 Allopurinol [Zyloprim 300 mg Tablet] 300 mg PO DAILY 04/20/19 Apremilast [Otezla] 30 mg PO Q12 04/20/19 Ascorbic Acid [Vitamin C 500 mg Tablet] 500 mg PO DAILY 04/20/19 Aspirin [Ecotrin 81 mg EC Tablet] 81 mg PO DAILY 04/20/19 Atorvastatin Calcium [Lipitor 40 mg Tablet] 40 mg PO QHS 04/20/19 Benzonatate [Tessalon Perle 100 mg Capsule] 200 mg PO Q8HP PRN 04/20/19 Calcium Carbonate/Vitamin D3 [Calcium 600-Vit D3 400 Tablet] 2 each PO DAILY 04/20/19 Cholecalciferol (Vitamin D3) [Vitamin D3 1000 Unit Tablet] 1,000 unit PO DAILY 04/20/19 Cyclosporine 0.05% Oph Emulsio [Restasis 0.05% Oph Emulsion Pf 0.4 ml] 1 drop OU DAILY 04/20/19 Ferrous Sulfate [Feosol 325 mg Tablet] 325 mg PO QAM 04/20/19 Fluticasone/Umeclidin/Vilanter [Trelegy 100-62.5-25 Mcg Ellipta 14 Dose/Dpi] 1 puff IH DAILY 04/20/19 Insulin Glargine,Hum.rec.anlog [Basaglar Kwikpen U-100] 20 unit SQ QHS 04/20/19 Insulin Lispro [Humalog Insulin (Lispro) 100 unit/mL] See Protocol SUBCUT .SLD SCALE 04/20/19 Lidocaine [Lidoderm 5% (700 mg) Transdermal Patch] 1 patch TP QAM 04/20/19 Mag Hydrox/Al Hydrox/Simeth [Maalox Plus Susp 30 Udcup] 20 ml PO DAILYP PRN Magnesium Oxide [Mag-Ox 400 mg Tablet] 400 mg PO BID 04/20/19 Melatonin [Melatonin 5 mg Tablet] 5 mg PO QHS 04/20/19 Mirtazapine 7.5 mg PO QHS 04/20/19 Multivitamin [One-A-Day Essential] 1 tab PO DAILY 04/20/19 Pantoprazole Sodium [Protonix [address] Tablet] 40 mg PO Q6AM 04/20/19 Prednisone [Deltasone 5 mg Tablet] 5 mg PO QAM 04/20/19 Sertraline HCl [Zoloft 50 mg Tablet] 50 mg PO QAM 04/20/19 Tiotropium [place] [Spiriva Handihaler 5 Cap/Kit (18 Mcg/Cap)] 1 cap IH DAILY 04/20/19 Vit A/Vit C/Vit E/Zinc/Copper [Preservision Areds Softgel] 2 each PO QAM 04/20/19 Fexofenadine/Pseudoephedrine [Hyacinth-D 12 Hour Tablet] 1 each PO BID 04/21/19 Levothyroxine Sodium [Synthroid 0.075 mg Tablet] 0.075 mg PO QAM 30 Days #30 tablet 04/25/19 Metoprolol Tartrate [Lopressor 25 mg Tablet] 6.25 mg PO Q12 30 Days #60 tab 04/25/19 Diltiazem HCl [Cardizem Cd 120 mg Capsule] 120 mg PO DAILY 05/02/19 Allergies/Adverse Reactions: methotrexate [Methotrexate] Allergy (Verified 04/20/19 16:05) Penicillins Allergy (Verified 04/21/19 11:29) Review of Systems Review of Systems: as per hpi Physical Exam Vital Signs: Temp Pulse Resp BP Pulse Ox 98.2 F 110 H 16 118/64 95 04/25/19 18:02 04/25/19 18:02 04/25/19 18:02 04/25/19 18:02 04/25/19 18:02 General appearance: PRESENT: mild distress Head exam: PRESENT: atraumatic, normocephalic Respiratory exam: PRESENT: accessory muscle use, decreased breath sounds, prolonged expiratory phas, wheezes Cardiovascular exam: PRESENT: irregular rhythm. ABSENT: diastolic murmur, rubs, systolic murmur Neurological exam: PRESENT: alert, awake, oriented to person, oriented to place, oriented to time, oriented to situation, CN II-XII grossly intact. ABSENT: motor sensory deficit Results Laboratory Results: 04/24/19 04:07 04/24/19 04:07 04/20/19 04/20/19 16:39 16:39 Creatine Kinase 49 Troponin I 0.040 NT-Pro-B Natriuret Pep 2320 H Impressions: Chest X-Ray 04/20/19 16:08 IMPRESSION: Cardiac enlargement. Linear atelectasis at the left base. Assessment and Plan - Diagnosis (1) Atrial fibrillation with rapid ventricular response Is this a current diagnosis for this admission?: Yes Plan: Likely exacerbated by recent acute respiratory failure caused by underlying pneumonia. Patient states BPs running in 90s, not a candidate for Cardizem drip. Received 1 dose of 0.125 digitalis with no significant change heart rate. Started on amiodarone drip. Once blood pressure recovers can be started on Cardizem drip. (2) Healthcare-associated pneumonia Is this a current diagnosis for this admission?: Yes Plan: Patient is a resident of custodial with history of multiple hospitalizations. High risk for healthcare associated pneumonia. Likely due to gram-positive's. Started on broad-spectrum antibiotics to cover gram-positive signs Pseudomonas. (3) Acute respiratory failure with hypoxia Is this a current diagnosis for this admission?: Yes Plan: Due to #1/#2. Plan as above. (4) CHF (congestive heart failure) Qualifiers: Heart failure type: diastolic Heart failure chronicity: chronic Qualified Code(s): I50.32 - Chronic diastolic (congestive) heart failure Is this a current diagnosis for this admission?: Yes Plan: Chronic diastolic heart failure. Does not seem to be in an acute exacerbation. 10/20/2018. 2D echo. LVEF 65%. Inferior wall hypokinesis, right ventricular enlargement. Will place on cardiac diet, diuretics, beta-blockers, JASON. (5) Chronic kidney disease, stage 3 Is this a current diagnosis for this admission?: Yes Plan: Mildly elevated creatinine. Baseline 1.6. Electrolytes WNL. Monitor glucose, monitor volume status, avoid nephrotoxic meds. Outpatient nephrology follow-up. (6) COPD exacerbation Is this a current diagnosis for this admission?: Yes Plan: Likely due to #1 #2. Not on home O2. Admit to telemetry, flutter valve, incentive spirometry, pulmonary toileting, LMA, LABA, ICS, IV steroids. Patient PCP and pulmonology follow-up. (7) Coronary artery disease Qualifiers: Coronary Disease-Associated Artery/Lesion type: unspecified vessel or lesion type Associated angina: without angina Is this a current diagnosis for this admission?: Yes Plan: Denies any anginal symptoms. Troponins negative. EKG no acute changes. Restart home meds. Adjust dosage as needed. Outpatient PCP follow-up (8) Diabetes mellitus type 2 in obese Is this a current diagnosis for this admission?: Yes Plan: Diabetic diet, sliding scale insulin, pre-meal insulin, long-acting insulin, Accu-Chek, hypoglycemia protocol. Restart home meds upon discharge. Adjust dosage as needed.
== END 2019-04-25 18:25 | DRG 308 ==
LOC: ER 15:53 → EH 18:42 → 3N 22:05
PROVIDERS: ADMIT Internal Medicine; ATTEND Internal Medicine
DX: I48.0 Paroxysmal atrial fibrillation (principal); J18.9 Pneumonia, unspecified organism; J96.01 Acute respiratory failure with hypoxia; I13.2 Hypertensive heart and chronic kidney disease with heart failure and with stage 5 chronic kidney disease, or end stage renal disease; J44.1 Chronic obstructive pulmonary disease with (acute) exacerbation; J44.0 Chronic obstructive pulmonary disease with (acute) lower respiratory infection; I50.32 Chronic diastolic (congestive) heart failure; I25.10 Atherosclerotic heart disease of native coronary artery without angina pectoris; N18.3 Chronic kidney disease, stage 3 (moderate); E11.22 Type 2 diabetes mellitus with diabetic chronic kidney disease; Z95.5 Presence of coronary angioplasty implant and graft; K21.9 Gastro-esophageal reflux disease without esophagitis; E78.5 Hyperlipidemia, unspecified; M19.90 Unspecified osteoarthritis, unspecified site; F32.9 Major depressive disorder, single episode, unspecified; Z66 Do not resuscitate; E03.9 Hypothyroidism, unspecified; E86.0 Dehydration; L40.9 Psoriasis, unspecified; D63.1 Anemia in chronic kidney disease; E11.65 Type 2 diabetes mellitus with hyperglycemia; T38.0X5A Adverse effect of glucocorticoids and synthetic analogues, initial encounter; Z90.49 Acquired absence of other specified parts of digestive tract; Z79.82 Long term (current) use of aspirin; Z79.899 Other long term (current) drug therapy; Z79.4 Long term (current) use of insulin; Z88.0 Allergy status to penicillin; Z88.8 Allergy status to other drugs, medicaments and biological substances; Z87.891 Personal history of nicotine dependence; Z87.01 Personal history of pneumonia (recurrent)
CPT/HCPCS: 36415; 71045; 80048; 80053; 81001; 82550; 82962; 83735; 83880; 84439; 84443; 84481; 84484; 85025; 85610; 87040; 93005; 93010; 94640; 96374; 99291; J0282; J1160; J1650; J1815; J1956; J2920; J3370; J3490; J7030; J7060; J7614; J7620

== ENCOUNTER 2019-05-01 13:40 | Inpatient (IN) | payer MEDICARE, MEDICAID ==
--- NOTE | 2019-05-01 14:09 | ER Document Report ---
ED Medical Screen (RME) - General Chief Complaint: Fall Stated Complaint: FALL/ARM PAIN Time Seen by Provider: 05/01/19 14:01 Primary Care Provider: GERSON MAY MD [Primary Care Provider] - Follow up as needed Notes: 78-year-old female presents to ED for complaint of fall on night. She states she was in the hospital last week for CHF and pneumonia and was discharged on night she fell. She states she has had increase in weight since night when she was discharged. She does have a history of CHF. She states she went to [facility] and had her shoulder and chest x-ray and again on Friday. She states her shoulder arm and legs have continued to swell and increased in weight. She came to the emergency room today for shortness of breath pain in her shoulder and arm and increased weight. She states she is very short of breath at this time. TRAVEL OUTSIDE OF THE [place] IN LAST 30 DAYS: No - Related Data Allergies/Adverse Reactions: methotrexate [Methotrexate] Allergy (Verified 04/20/19 16:05) Penicillins Allergy (Verified 04/21/19 11:29) Past Medical History - Past Medical History Cardiac Medical History: Reports: Hx Atrial Fibrillation, Hx Congestive Heart Failure, Hx Coronary Artery Disease - With 2 stents in the past, Hx Hyper cholesterolemia, Hx Hypertension Pulmonary Medical History: Reports: Hx COPD, Hx Pneumonia, Hx Respiratory Failure Denies: Hx Tuberculosis Neurological Medical History: Denies: Hx Migraine, Hx Seizures Endocrine Medical History: Reports: Hx Diabetes Mellitus Type 2 Renal/ Medical History: Denies: Hx End Stage Renal Disease, Hx Peritoneal Dialysis GI Medical History: Reports: Hx Gastroesophageal Reflux Disease Musculoskeltal Medical History: Reports Hx Arthritis Skin Medical History: Reports Hx Psoriasis Psychiatric Medical History: Reports: Hx Depression Denies: Hx Bipolar Disorder Past Surgical History: Reports: Hx Cardiac Catheterization, Hx Herniorrhaphy, Hx Hysterectomy. Denies: Hx Pacemaker - Immunizations Immunizations up to date: Yes Hx Diphtheria, Pertussis, Tetanus Vaccination: Yes Doctor's Discharge - Discharge Referrals: GERSON MAY MD [Primary Care Provider] - Follow up as needed
[2019-05-01 15:08] LABS: HEMATOCRIT 24.1 % (36.0-47.0); MEAN CORPUSCULAR HEMOGLOBIN 28.2 pg (27.0-33.4); MEAN CORPUSCULAR HGB CONC 32.4 g/dL (32.0-36.0); MEAN CORPUSCULAR VOLUME 87 fl (80-97); PLATELET COUNT 227 10^3/uL (150-450); RED BLOOD COUNT 2.77 10^6/uL (3.72-5.28); RED CELL DISTRIBUTION WIDTH 19.1 % (11.5-14.0)
[2019-05-01 15:12] LABS: HEMOGLOBIN 7.8 g/dL (12.0-15.5)
--- NOTE | 2019-05-01 15:12 | RADIOLOGY REPORT (SQ) ---
EXAM DESCRIPTION: ELBOW LEFT OVER 2 VIEWS COMPLETED DATE/TIME: 05/01/2019 2:53 pm REASON FOR STUDY: fall increase swelling chf COMPARISON: None. NUMBER OF VIEWS: Four views. TECHNIQUE: AP, lateral, and both oblique radiographic images acquired of the left elbow. LIMITATIONS: Suboptimal patient positioning. FINDINGS: MINERALIZATION: Normal. BONES: There is suboptimal patient positioning. No definite evidence for acute fracture or dislocati on. JOINT: Small effusion. SOFT TISSUES: Mild soft tissue swelling. No radiopaque foreign body. IMPRESSION: Mild soft tissue swelling at the left elbow with a small joint effusion, a radiographic occult fracture cannot be excluded. TECHNICAL DOCUMENTATION: JOB ID: [id number] 2010 [employer]- All Rights Reserved Reading location - IP/workstation name: [email or web address]
--- NOTE | 2019-05-01 15:13 | RADIOLOGY REPORT (SQ) ---
EXAM DESCRIPTION: HAND RIGHT 3 VIEWS COMPLETED DATE/TIME: 05/01/2019 2:53 pm REASON FOR STUDY: fall increase swelling chf COMPARISON: None. EXAM PARAMETERS: NUMBER OF VIEWS: Three views. TECHNIQUE: AP, lateral and oblique radiographic images acquired of the right hand. LIMITATIONS: None. FINDINGS: MINERALIZATION: Normal. BONES: No acute fracture or dislocation. No worrisome bone lesions. JOINTS: No effusions. SOFT TISSUES: Dorsal soft tissue swelling. No foreign body. OTHER: No other significant finding. IMPRESSION: SOFT TISSUE SWELLING. NO FRACTURE. TECHNICAL DOCUMENTATION: JOB ID: [id number] [employer]- All Rights Reserved Reading location - IP/workstation name: [email or web address]
--- NOTE | 2019-05-01 15:14 | RADIOLOGY REPORT (SQ) ---
EXAM DESCRIPTION: HUMERUS RIGHT COMPLETED DATE/TIME: 05/01/2019 2:53 pm REASON FOR STUDY: fall increase swelling chf COMPARISON: None. NUMBER OF VIEWS: Two views. TECHNIQUE: Two radiographic images were acquired of the right humerus to include elbow and shoulder in at least one projection. LIMITATIONS: None. FINDINGS: MINERALIZATION: Normal. BONES: No acute fracture or dislocation. No worrisome bone lesions. SOFT TISSUES: No obvious swelling or foreign body. OTHER: No other significant finding. IMPRESSION: NEGATIVE STUDY OF THE RIGHT HUMERUS. NO RADIOGRAPHIC EVIDENCE OF ACUTE INJURY. TECHNICAL DOCUMENTATION: JOB ID: [id number] [employer]- All Rights Reserved Reading location - IP/workstation name: [email or web address]
--- NOTE | 2019-05-01 15:15 | RADIOLOGY REPORT (SQ) ---
EXAM DESCRIPTION: CHEST 2 VIEWS COMPLETED DATE/TIME: 05/01/2019 2:53 pm REASON FOR STUDY: fall increase swelling chf COMPARISON: 04/20/2019. EXAM PARAMETERS: NUMBER OF VIEWS: two views TECHNIQUE: Digital Frontal and Lateral radiographic views of the chest acquired. RADIATION DOSE: NA LIMITATIONS: none FINDINGS: LUNGS AND PLEURA: No opacities, masses or pneumothorax. No pleural effusion. MEDIASTINUM AND HILAR STRUCTURES: No masses or contour abnormalities. HEART AND VASCULAR STRUCTURES: Cardiomegaly. Mild vascular congestion. BONES: No acute findings. HARDWARE: None in the chest. OTHER: No other significant finding. IMPRESSION: CARDIOMEGALY. MILD VASCULAR CONGESTION. TECHNICAL DOCUMENTATION: JOB ID: [id number] [employer]- All Rights Reserved Reading location - IP/workstation name: [email or web address]
--- NOTE | 2019-05-01 15:15 | RADIOLOGY REPORT (SQ) ---
EXAM DESCRIPTION: SHOULDER RIGHT 2 OR MORE VIEWS COMPLETED DATE/TIME: 05/01/2019 2:53 pm REASON FOR STUDY: fall increase swelling chf COMPARISON: None. NUMBER OF VIEWS: Three views. TECHNIQUE: Internal rotation, external rotation, and Y view images acquired of the right shoulder. LIMITATIONS: None. FINDINGS: MINERALIZATION: Normal. BONES: No acute fracture. No worrisome bone lesions. JOINTS: Degenerative changes with marked joint space narrowing, sclerosis, and osteophytes in the gle nohumeral joint. Osteophytes in the acromioclavicular joint. Narrowing of the subacromial space. N o dislocation. VISUALIZED LUNGS AND RIBS: No pneumothorax. No rib fracture. SOFT TISSUES: No radiopaque foreign body. OTHER: No other significant finding. IMPRESSION: CHRONIC DEGENERATIVE CHANGES. NO RADIOGRAPHIC EVIDENCE OF ACUTE INJURY. TECHNICAL DOCUMENTATION: JOB ID: [id number] [employer]- All Rights Reserved Reading location - IP/workstation name: [email or web address]
[2019-05-01 15:21] LABS: ALBUMIN 2.9 g/dL (3.5-5.0); ALKALINE PHOSPHATASE 94 U/L (38-126); ANION GAP 7 (5-19); ASPARTATE AMINO TRANSFERASE 29 U/L (14-36); BILIRUBIN,DIRECT 0.3 mg/dL (0.0-0.4); BILIRUBIN,TOTAL 0.7 mg/dL (0.2-1.3); BLOOD UREA NITROGEN 44 mg/dL (7-20); CALCIUM 8.8 mg/dL (8.4-10.2); CARBON DIOXIDE 23 mmol/L (22-30); CHLORIDE 109 mmol/L (98-107); GLUCOSE 162 mg/dL (75-110); POTASSIUM 5.6 mmol/L (3.6-5.0); TOTAL PROTEIN 5.6 g/dL (6.3-8.2)
[2019-05-01] MEDS ORDERED: IPRATROPIUM/ALBUTEROL 0.5-2.5 MG/3 ML AMPUL NEB ONE (15:30)
[2019-05-01 15:31] LABS: ABSOLUTE LYMPHOCYTES# (MANUAL) 0.2 10^3/uL (0.5-4.7); BAND NEUTROPHILS % (MANUAL) 1 % (3-5); BASOPHILS % (MANUAL) 0 % (0-2); EOSINOPHILS % (MANUAL) 1 % (0-6); LYMPHOCYTES % (MANUAL) 2 % (13-45); MONOCYTES % (MANUAL) 9 % (3-13); NUCLEATED RED BLOOD CELLS 2 /100 WBC (0); SEGMENTED NEUTROPHILS % (MAN) 87 % (42-78); TOTAL CELLS COUNTED 100
[2019-05-01 15:33] LABS: ANISOCYTOSIS 2+; PLATELET COMMENT ADEQUATE
[2019-05-01 16:48] LABS: INTERNATIONAL RATION (INR) 2.63; PROTHROMBIN TIME 28.6 SEC (11.4-15.4)
--- NOTE | 2019-05-01 17:04 | ER Document Report ---
ED General - General Chief Complaint: Fall Stated Complaint: FALL/ARM PAIN Time Seen by Provider: 05/01/19 14:01 Primary Care Provider: GERSON MAY MD [Primary Care Provider] - Follow up as needed Notes: Patient is a current resident at [facility]. She is brought in here today to have swelling and seeping from her arms. Patient was in this hospital for about a week being treated for pneumonia and atrial fibrillation with rapid ventricular response and was discharged to [facility]. She was there just a couple of days when she fell and was taken to the [facility] where she was hospitalized for 5 days for injuries from her fall. They included fractures of vertebrae in her spine and a couple of rib fractures. She was discharged from that facility back to [facility] just 2 days ago. Family is concerned because of the bruising and discoloration and swelling and weeping and seeping of fluid from her arms. Patient has a history of atrial fibrillation and has been admitted to this hospital many times for rapid ventricular response. She used to be on Eliquis, but that was stopped during her stay at the [facility] last week. In addition to the swelling of the patient's arms, she has swelling of her abdomen and also swelling of both lower legs. She is supposed to be taking Lasix. Has had a history of ascites. Family noted that the patient was wheezing today. She says that the patient sounds like this when she gets fluid in her lungs. TRAVEL OUTSIDE OF THE [place] IN LAST 30 DAYS: No - Related Data Allergies/Adverse Reactions: methotrexate [Methotrexate] Allergy (Verified 04/20/19 16:05) Penicillins Allergy (Verified 04/21/19 11:29) Past Medical History - Social History Smoking Status: Unknown if Ever Smoked Family History: Reviewed & Not Pertinent, CAD Patient has suicidal ideation: No Patient has homicidal ideation: No - Past Medical History Cardiac Medical History: Reports: Hx Atrial Fibrillation, Hx Congestive Heart Failure, Hx Coronary Artery Disease - With 2 stents in the past, Hx Hyp ercholesterolemia, Hx Hypertension Pulmonary Medical History: Reports: Hx COPD, Hx Pneumonia, Hx Respiratory Failure Neurological Medical History: Denies: Hx Migraine, Hx Seizures Endocrine Medical History: Reports: Hx Diabetes Mellitus Type 2 GI Medical History: Reports: Hx Gastroesophageal Reflux Disease Musculoskeletal Medical History: Reports Hx Arthritis Skin Medical History: Reports Hx Psoriasis Psychiatric Medical History: Reports: Hx Depression Past Surgical History: Reports: Hx Cardiac Catheterization, Hx Herniorrhaphy, Hx Hysterectomy - Immunizations Immunizations up to date: Yes Hx Diphtheria, Pertussis, Tetanus Vaccination: Yes Review of Systems - Review of Systems Notes: REVIEW OF SYSTEMS: CONSTITUTIONAL : Denies fever. EENT: Denies eye, ear, nose or mouth or throat pain or other symptoms. CARDIOVASCULAR: Denies chest pain. Patient has some swelling of both lower extremities. RESPIRATORY: Has shortness of breath. See HPI. Has been wheezing today. GASTROINTESTINAL: Have noted enlargement of the patient's abdomen, but denies ab dominal pain or nausea, vomiting, or diarrhea. GENITOURINARY: Denies difficulty or painful urinating, urinary frequency, blood in urine. MUSCULOSKELETAL: Denies back or neck pain. Denies joint pain or swelling. Extensive bruising of both arms. SKIN: Denies rash or skin lesions. NEUROLOGICAL: Denies LOC or altered mental status. Denies headache. Generalized weakness. Is able to stand, according to the family, but is unable to ambulate.. ALL OTHER SYSTEMS REVIEWED AND NEGATIVE. Physical Exam - Vital signs Vitals: Temp Pulse Resp BP Pulse Ox 98.8 F 114 H 20 149/80 H 94 05/01/19 13:50 05/01/19 13:50 05/01/19 13:50 05/01/19 13:50 05/01/19 13:50 Interpretation: Tachycardic - Minimal at 108.. No: Hypoxic Notes: PHYSICAL EXAMINATION: GENERAL: Appears to be in poor health. Wheezes noted by examiner here without stethoscope needed. HEAD: Atraumatic, normocephalic. EYES: Pupils equal round and reactive to light, extraocular movements intact. ENT: oropharynx clear without exudates. Moist mucous membranes. NECK: Normal range of motion, supple. LUNGS: Diffuse wheezes, primarily expiratory, HEART: Irregularly irregular rate and rhythm without murmurs. +2 to +3 pretibial edema bilaterally. Negative Homans. ABDOMEN: Distended and percusses as fluid. Soft, nontender. No guarding or rebound. No masses. BACK: No tenderness throughout entire back. EXTREMITIES: Normal range of motion without pain. Both upper extremities are swollen and diffusely bruised with yellow/red/purple discoloration. The left elbow region has some clear lymphatic fluid drainage. NEUROLOGICAL: Normal speech, but seems weak. Seems to be oriented towards being said.. Moves all 4 extremities. Awake, alert, and oriented x3. PSYCH: Normal mood, normal affect. SKIN: Warm, dry, no rashes. Course - Re-evaluation Re-evalutation: 05/01/19 18:25 Patient had some wheezes and was given a nebulizer of DuoNeb and that was repeated once. Her EKG shows a ventricular rate of 131, but throughout the patient's time here today, I have not noted her heart rate to be that high on any occasion. It is mostly in the 100-110 range. Chest x-ray shows cardiomegaly with some increased central vascular congestion. Spoke with hospitalist who will admit the patient. He is going to start a Cardizem drip - Vital Signs Vital signs: Temp Pulse Resp BP Pulse Ox 98.8 F 114 H 30 H 144/96 H 96 05/01/19 13:50 05/01/19 13:50 05/01/19 16:55 05/01/19 16:55 05/01/19 16:55 - Laboratory Result Diagrams: 05/01/19 14:53 05/01/19 16:25 Laboratory results interpreted by me: 05/01/19 05/01/19 05/01/19 14:53 14:53 14:53 WBC 11.0 H RBC 2.77 L Hgb 7.8 L Hct 24.1 L RDW 19.1 H Seg Neuts % (Manual) 87 H Band Neutrophils % 1 L Lymphocytes % (Manual) 2 L Abs Neuts (Manual) 9.7 H Abs Lymphs (Manual) 0.2 L PT Potassium 5.6 H Chloride 109 H BUN 44 H Creatinine 1.32 H Est GFR ( Amer) 47 L Est GFR (MDRD) Non-Af 39 L Glucose 162 H NT-Pro-B Natriuret Pep 4330 H Total Protein 5.6 L Albumin 2.9 L Urine Protein 05/01/19 05/01/19 05/01/19 16:25 16:25 16:50 WBC RBC Hgb Hct RDW Seg Neuts % (Manual) Band Neutrophils % Lymphocytes % (Manual) Abs Neuts (Manual) Abs Lymphs (Manual) PT 28.6 H Potassium 5.5 H Chloride 109 H BUN 42 H Creatinine 1.39 H Est GFR ( Amer) 44 L Est GFR (MDRD) Non-Af 36 L Glucose 172 H NT-Pro-B Natriuret Pep Total Protein Albumin Urine Protein 100 H - Diagnostic Test Radiology results interpreted by me: 05/01/19 18:37 Chest x-ray with some cardiomegaly and mild increased intravascular congestion. - EKG Interpretation by Me Rate: Tachycardia - At 131. Rhythm: A.Fib Additional EKG results interpreted by me: 05/01/19 18:[address] changes, no STEMI. Critical Care Note - Critical Care Note Total time excluding time spent on procedures (mins): 45 Discharge - Discharge Clinical Impression: Atrial fibrillation with rapid ventricular response, COPD exacerbation Condition: Fair Disposition: ADMITTED INPATIENT Admitting Provider: Sony Olson Unit Admitted: IMCU Referrals: GERSON MAY MD [Primary Care Provider] - Follow up as needed
[2019-05-01 17:19] LABS: APPEARANCE,URINE CLEAR; BILIRUBIN,URINE NEGATIVE (NEGATIVE); COLOR,URINE YELLOW; GLUCOSE, URINE NEGATIVE (NEGATIVE); KETONES,URINE NEGATIVE (NEGATIVE); LEUKOCYTE ESTERASE,URINE NEGATIVE (NEGATIVE); NITRITE,URINE NEGATIVE (NEGATIVE); PROTEIN,URINE 100 mg/dL (NEGATIVE); URINE SPECIFIC GRAVITY 1.014; UROBILINOGEN,URINE NEGATIVE mg/dL (<2.0)
[2019-05-01 17:23] LABS: TROPONIN I 0.031 ng/mL
[2019-05-01] MEDS ORDERED: ONDANSETRON HCL INJ/PF 4 MG/2 ML SDV IV PRN (17:33)
[2019-05-01] MEDS ORDERED: MAG HYDROX/AL HYDROX/SIMETH SUSP 30 ML UDCUP PO PRN (17:33)
[2019-05-01] MEDS ORDERED: ZOLPIDEM TARTRATE 5 MG TABLET PO PRN (17:33)
[2019-05-01] MEDS ORDERED: GLUCAGON,HUMAN RECOMB 1 MG INJ IM PRN (17:39)
[2019-05-01] MEDS ORDERED: DEXTROSE 40% GEL 15 GM TUBE PO PRN ×2 (17:39)
[2019-05-01] MEDS ORDERED: DEXTROSE 50%-WATER 25 GM/50 ML DISP.SYRIN IV PRN ×2 (17:39)
[2019-05-01] MEDS ORDERED: SODIUM POLYSTYRENE SULFONATE 15 GM/60 ML PO ONE (17:40)
[2019-05-01] MEDS ORDERED: DILTIAZEM HCL/D5W 125 MG/125 ML RTUINJ IV PRN (17:41)
[2019-05-01] MEDS ORDERED: DILTIAZEM HCL INJ 25 MG/5 ML VIAL IV ONE (17:41)
--- NOTE | 2019-05-01 17:56 | PDOC H&P ---
History of Present Illness Admission Date/PCP: 05/01/2019 GERSON MAY Patient complains of: Swelling bilateral upper extremity and lower extremities, pain, no chest pain at this time History of Present Illness: PREETI ELIZABETH is a 78 year old female who is a current resident at [facility]. Patient was brought in here today to have swelling and seeping from her arms evaluated. Patient was found to be in A. fib with rapid ventricular response. Patient was recently taken to the [facility] where she was hospitalized for 5 days for injuries after a fall. Patient states she is had a weight gain of 22 pounds over last several days. Patient's family is very concerned about bruising and discoloration swelling with seeping in her bilateral arms. Patient is supposed be taking Bumex but I cannot find it on her medication reconciliation form. Patient has had some wheezing today I suspect this is cardiac in nature. No treatment prior to arrival all active is aggravating factor. Past Medical History Cardiac Medical History: Reports: Atrial Fibrillation, Congestive Heart Failure, Coronary Artery Disease - With 2 stents in the past, Hyperlipidema, Hypertension Pulmonary Medical History: Reports: Chronic Obstructive Pulmonary Disease (COPD), Pneumonia, Respiratory Failure Denies: Tuberculosis Neurological Medical History: Denies: Migraine, Seizures Endocrine Medical History: Reports: Diabetes Mellitus Type 2 Renal/ Medical History: Denies: End Stage Renal Disease GI Medical History: Reports: Gastroesophageal Reflux Disease Musculoskeltal Medical History: Reports: Arthritis Skin Medical History: Reports: Psoriasis Psychiatric Medical History: Reports: Depression Denies: Bipolar Disorder Hematology: Reports: Anemia Denies: Bleeding Tendencies Past Surgical History Past Surgical History: Reports: Cardiac Catheterization, Herniorrhaphy, Hysterectomy Denies: Pacemaker Social History Information Source: Patient Lives with: Jail Smoking Status: Former Smoker Electronic Cigarette use?: No Frequency of Alcohol Use: None Hx Recreational Drug Use: No Drugs: None Hx Prescription Drug Abuse: No - Advance Directive Resuscitation Status: Do Not Resuscitate Family History Family History: CAD Parental Family History Reviewed: Yes Children Family History Reviewed: Yes Sibling(s) Family History Reviewed.: Yes Medication/Allergy Home Medications: Acetaminophen [Tylenol] 650 mg PO Q4HP PRN 04/20/19 Allopurinol [Zyloprim 300 mg Tablet] 300 mg PO DAILY 04/20/19 Apremilast [Otezla] 30 mg PO Q12 04/20/19 Ascorbic Acid [Vitamin C 500 mg Tablet] 500 mg PO DAILY 04/20/19 Aspirin [Ecotrin 81 mg EC Tablet] 81 mg PO DAILY 04/20/19 Atorvastatin Calcium [Lipitor 40 mg Tablet] 40 mg PO QHS 04/20/19 Benzonatate [Tessalon Perle 100 mg Capsule] 200 mg PO Q8HP PRN 04/20/19 Calcium Carbonate/Vitamin D3 [Calcium 600-Vit D3 400 Tablet] 2 each PO DAILY 04/20/19 Cholecalciferol (Vitamin D3) [Vitamin D3 1000 Unit Tablet] 1,000 unit PO DAILY 04/20/19 Cyclosporine 0.05% Oph Emulsio [Restasis 0.05% Oph Emulsion Pf 0.4 ml] 1 drop OU DAILY 04/20/19 Ferrous Sulfate [Feosol 325 mg Tablet] 325 mg PO QAM 04/20/19 Fluticasone/Umeclidin/Vilanter [Trelegy 100-62.5-25 Mcg Ellipta 14 Dose/Dpi] 1 puff IH DAILY 04/20/19 Insulin Glargine,Hum.rec.anlog [Basaglar Kwikpen U-100] 20 unit SQ QHS 04/20/19 Insulin Lispro [Humalog Insulin (Lispro) 100 unit/mL] See Protocol SUBCUT .SLD SCALE 04/20/19 Ipratropium/Albuterol Sulfate [Duoneb 3 ml Ampul] 3 ml NEB [id number] PRN 04/20/19 Lidocaine [Lidoderm 5% (700 mg) Transdermal Patch] 1 patch TP QAM 04/20/19 Mag Hydrox/Al Hydrox/Simeth [Maalox Plus Susp 30 Udcup] 20 ml PO DAILYP PRN 04/20/19 Magnesium Oxide [Mag-Ox 400 mg Tablet] 400 mg PO BID 04/20/19 Melatonin [Melatonin 5 mg Tablet] 5 mg PO QHS 04/20/19 Mirtazapine 7.5 mg PO QHS 04/20/19 Multivitamin [One-A-Day Essential] 1 each PO DAILY 04/20/19 Pantoprazole Sodium [Protonix [address] Tablet] 40 mg PO Q6AM 04/20/19 Prednisone [Deltasone 5 mg Tablet] 5 mg PO QAM 04/20/19 Sertraline HCl [Zoloft 50 mg Tablet] 50 mg PO QAM 04/20/19 Tiotropium Reinbeck [Spiriva Handihaler 5 Cap/Kit (18 Mcg/Cap)] 1 cap IH DAILY 04/20/19 Vit A/Vit C/Vit E/Zinc/Copper [Preservision Areds Softgel] 2 each PO QAM 03/29 11/13 Fexofenadine/Pseudoephedrine [Hyacinth-D 12 Hour Tablet] 1 each PO BID 04/21/19 Diltiazem HCl [Cardizem Cd 120 mg Capsule] 1 cap.sr PO DAILY 30 Days #30 cap.sr 04/25/19 Levofloxacin 250 mg PO Q2D 8 Days #4 ml 04/25/19 Levothyroxine Sodium [Synthroid 0.075 mg Tablet] 0.075 mg PO QAM 30 Days #30 tablet 04/25/19 Metoprolol Tartrate [Lopressor 25 mg Tablet] 6.25 mg PO Q12 30 Days #60 tab 03/29 04/15 Prednisone [Deltasone 20 mg Tablet] 40 mg PO DAILY 3 Days #6 tablet 04/25/19 Allergies/Adverse Reactions: methotrexate [Methotrexate] Allergy (Verified 04/20/19 16:05) Penicillins Allergy (Verified 04/21/19 11:29) Review of Systems Constitutional: ABSENT: chills, fever(s), headache(s), weight gain, weight loss Eyes: ABSENT: visual disturbances Ears: ABSENT: hearing changes Cardiovascular: PRESENT: edema, orthropnea, palpitations. ABSENT: chest pain, dyspnea on exertion Respiratory: PRESENT: dyspnea, other - Wheeze. ABSENT: cough, hemoptysis Gastrointestinal: ABSENT: abdominal pain, constipation, diarrhea, hematemesis, hematochezia, nausea, vomiting Genitourinary: ABSENT: dysuria, hematuria Musculoskeletal: ABSENT: joint swelling Integumentary: PRESENT: other - Swelling bilateral upper and lower extremities with weeping and multiple bruising over bilateral upper extremities. ABSENT: rash, wounds Neurological: ABSENT: abnormal gait, abnormal speech, confusion, dizziness, foca l weakness, syncope Psychiatric: ABSENT: anxiety, depression, homidical ideation, suicidal ideation Endocrine: ABSENT: cold intolerance, heat intolerance, polydipsia, polyuria Hematologic/Lymphatic: ABSENT: easy bleeding, easy bruising Physical Exam Vital Signs: Temp Pulse Resp BP Pulse Ox 98.8 F 114 H 30 H 144/96 H 96 05/01/19 13:50 05/01/19 13:50 05/01/19 16:55 05/01/19 16:55 05/01/19 16:55 Intake & Output 04/30/19 05/01/19 05/02/19 06:59 06:59 06:59 Weight 87.543 kg General appearance: PRESENT: no acute distress, well-developed, well-nourished Head exam: PRESENT: atraumatic, normocephalic Eye exam: PRESENT: conjunctiva pink, EOMI, PERRLA. ABSENT: scleral icterus Ear exam: PRESENT: normal external ear exam Mouth exam: PRESENT: moist, tongue midline Neck exam: ABSENT: carotid bruit, JVD, lymphadenopathy, thyromegaly Respiratory exam: PRESENT: crackles, decreased breath sounds, wheezes. ABSENT: rales, rhonchi Cardiovascular exam: PRESENT: irregular rhythm, tachycardia. ABSENT: diastolic murmur, rubs, systolic murmur Pulses: PRESENT: +1 pedal pulses bilateral Vascular exam: PRESENT: normal capillary refill GI/Abdominal exam: PRESENT: normal bowel sounds, soft. ABSENT: distended, guarding, mass, organolmegaly, rebound, tenderness Rectal exam: PRESENT: deferred Extremities exam: PRESENT: full ROM, pedal edema, +2 edema. ABSENT: calf tenderness, clubbing Neurological exam: PRESENT: alert, awake, oriented to person, oriented to place, oriented to time, oriented to situation, CN II-XII grossly intact. ABSENT: motor sensory deficit Psychiatric exam: PRESENT: appropriate affect, normal mood. ABSENT: homicidal ideation, suicidal ideation Skin exam: PRESENT: dry, intact, warm, other - Bruising to bilateral upper extremities, gross anasarca and weeping. ABSENT: cyanosis, rash Results Laboratory Results: 05/01/19 14:53 05/01/19 14:53 05/01/19 05/01/19 05/01/19 14:53 14:53 16:50 WBC 11.0 H RBC 2.77 L Hgb 7.8 L Hct 24.1 L MCV 87 MCH 28.2 MCHC 32.4 RDW 19.1 H Plt Count 227 Seg Neutrophils % Not Reportable Sodium 139.4 Potassium 5.6 H Chloride 109 H Carbon Dioxide 23 Anion Gap 7 BUN 44 H Creatinine 1.32 H Est GFR ( Amer) 47 L Glucose 162 H Calcium 8.8 Total Bilirubin 0.7 AST 29 Alkaline Phosphatase 94 Total Protein 5.6 L Albumin 2.9 L Urine Color YELLOW Urine Appearance CLEAR Urine pH 6.0 Ur Specific [place] 1.014 Urine Protein 100 H Urine Glucose (UA) NEGATIVE Urine Ketones NEGATIVE Urine Blood NEGATIVE Urine Nitrite NEGATIVE Ur Leukocyte Esterase NEGATIVE Urine WBC (Auto) 1 Urine RBC (Auto) 2 05/01/19 14:53 Troponin I 0.031 NT-Pro-B Natriuret Pep 4330 H Impressions: Chest X-Ray 05/01/19 14:05 IMPRESSION: CARDIOMEGALY. MILD VASCULAR CONGESTION. Elbow X-Ray 05/01/19 14:05 IMPRESSION: Mild soft tissue swelling at the left elbow with a small joint effusion, a radiographic occult fracture cannot be excluded. Hand X-Ray 05/01/19 14:05 IMPRESSION: SOFT TISSUE SWELLING. NO FRACTURE. Humerus X-Ray 05/01/19 14:05 IMPRESSION: NEGATIVE STUDY OF THE RIGHT HUMERUS. NO RADIOGRAPHIC EVIDENCE OF ACUTE INJURY. Shoulder X-Ray 05/01/19 14:05 IMPRESSION: CHRONIC DEGENERATIVE CHANGES. NO RADIOGRAPHIC EVIDENCE OF ACUTE INJURY. Assessment and Plan - Plan Summary Summary: 05/01/2019- Atrial fibrillation with rapid ventricular response-admit to IMCU. Cardizem 10 mg IV bolus, Cardizem drip at 10 mg an hour, given her age and fragile nature I am going to give her DVT prophylaxis heparin I am going to hold off on anticoagulation at this point as I feel the benefits do not outweigh the risks at this time. I will continue to follow. We will continue patient on beta- blockers and convert to p.o. Cardizem as necessary as needed. Type 2 diabetes mellitus-carbohydrate controlled diet with sliding scale insulin before meals and at bedtime. Continue home medication. Acute on chronic diastolic congestive heart failure-I suspect this could be partial reason for this A. fib with rapid ventricular response. Patient states she gained 22 pounds weight in the last several days. I will give her Bumex 1 mg IV every 8 hours. I will evaluate response wait for a bump in her creatinine may have to increase this dosage. Repeat BNP in the a.m. Anemia chronic disease-stable at this time continue to follow daily CBCs Hyperkalemia-potassium 5.6. Will give 30 g of Kayexalate p.o. times 1 repeat BMP in a.m. - Time Time Spent with patient: 35 or more minutes - Inpatient Certification Based on my medical assessment, after consideration of the patient's comorbidities, presenting symptoms, or acuity I expect that the services needed warrant INPATIENT care.: Yes I certify that my determination is in accordance with my understanding of Medicare's requirements for reasonable and necessary INPATIENT services [42 CFR 412.3e].: Yes Medical Necessity: Other - IV diuresis, IV Cardizem
[2019-05-01 18:03] LABS: ANION GAP 8 (5-19); BLOOD UREA NITROGEN 42 mg/dL (7-20); CALCIUM 8.9 mg/dL (8.4-10.2); CARBON DIOXIDE 23 mmol/L (22-30); CHLORIDE 109 mmol/L (98-107); GLUCOSE 172 mg/dL (75-110); POTASSIUM 5.5 mmol/L (3.6-5.0)
[2019-05-01] MEDS: BUMETANIDE INJ/PF 1 MG/4 ML SDV IV SCH (18:42)
[2019-05-01] MEDS: OXYCODONE-ACETAMINOPHEN 5-325 MG TABLET PO PRN ×2 (19:04→23:45)
[2019-05-01] MEDS: ALBUTEROL SULFATE 0.083% NEB 2.5 MG/3 ML AMPUL NEB SCH (19:08)
--- NOTE | 2019-05-01 19:24 | EKG REPORT ---
SEVERITY:- ABNORMAL ECG - ATRIAL FIBRILLATION PROBABLE INFERIOR INFARCT, AGE INDETERMINATE EXTENSIVE ANTERIOR INFARCT, AGE INDETERMINATE BORDERLINE PROLONGED QT INTERVAL : Confirmed by: Viviana Kaplan MD 01-May-2019 19:23:27
[2019-05-01] MEDS: HEPARIN SOD (PORCINE) 5,000 UNIT/ML 1 ML VIAL SUBCUT SCH (23:02)
[2019-05-02] MEDS: ALBUTEROL SULFATE 0.083% NEB 2.5 MG/3 ML AMPUL NEB SCH ×6 (00:02→20:46)
[2019-05-02] MEDS: INSULIN REG, HUMAN 100 UNIT/ML 3 ML VIAL (PYX) SUBCUT SCH ×5 (00:17→22:45)
[2019-05-02] MEDS ORDERED: DILTIAZEM HCL 30 MG TABLET ONE (04:21)
[2019-05-02] MEDS ORDERED: DILTIAZEM HCL 30 MG TABLET PO ONE (04:30)
[2019-05-02] MEDS: HEPARIN SOD (PORCINE) 5,000 UNIT/ML 1 ML VIAL SUBCUT SCH ×3 (05:42→22:45)
[2019-05-02 05:59] LABS: HEMATOCRIT 21.4 % (36.0-47.0); MEAN CORPUSCULAR HEMOGLOBIN 28.9 pg (27.0-33.4); MEAN CORPUSCULAR HGB CONC 32.6 g/dL (32.0-36.0); MEAN CORPUSCULAR VOLUME 89 fl (80-97); PLATELET COUNT 215 10^3/uL (150-450); RED BLOOD COUNT 2.42 10^6/uL (3.72-5.28); RED CELL DISTRIBUTION WIDTH 19.2 % (11.5-14.0); WHITE BLOOD COUNT 9.4 10^3/uL (4.0-10.5)
[2019-05-02 06:22] LABS: PHOSPHORUS 4.6 mg/dL (2.5-4.5)
[2019-05-02 06:41] LABS: FREE T4 (FREE THYROXINE) 0.35 ng/dL (0.78-2.19)
[2019-05-02 06:55] LABS: THYROID STIMULATING HORMONE 73.2 uIU/mL (0.47-4.68)
--- NOTE | 2019-05-02 08:07 | PDOC PROGRESS REPORT ---
Subjective Progress Note for:: 05/02/19 Subjective:: 05/02/2019-no complaints this a.m. Reason For Visit: ATRIAL FIBRILLATION WITH RAPID,VENTRICULAR Physical Exam Vital Signs: Temp Pulse Resp BP Pulse Ox 98.9 F 72 18 120/60 98 05/02/19 03:16 05/02/19 04:40 05/02/19 04:03 05/02/19 04:40 05/02/19 04:03 Intake & Output 05/01/19 05/02/19 05/03/19 06:59 06:59 06:59 Intake Total 309 Output Total 875 Balance -566 Weight 85.8 kg General appearance: PRESENT: no acute distress, well-developed, well-nourished Neck exam: ABSENT: carotid bruit, JVD, lymphadenopathy, thyromegaly Respiratory exam: PRESENT: decreased breath sounds, unlabored, wheezes Cardiovascular exam: PRESENT: irregular rhythm, other - Gross anasarca bilateral upper and lower extremities. ABSENT: diastolic murmur, rubs, systolic murmur Pulses: PRESENT: +1 pedal pulses bilateral GI/Abdominal exam: PRESENT: normal bowel sounds, soft. ABSENT: distended, guarding, mass, organolmegaly, rebound, tenderness Extremities exam: PRESENT: +2 edema Neurological exam: PRESENT: alert, awake, oriented to person, oriented to place, oriented to time, oriented to situation, CN II-XII grossly intact. ABSENT: motor sensory deficit Psychiatric exam: PRESENT: appropriate affect, normal mood. ABSENT: homicidal ideation, suicidal ideation Skin exam: PRESENT: dry, intact, warm, other - Multiple areas of bruising over upper extremities. ABSENT: cyanosis, rash Results Laboratory Results: 05/02/19 05:11 05/01/19 16:25 05/01/19 05/01/19 05/01/19 14:53 14:53 16:25 WBC 11.0 H RBC 2.77 L Hgb 7.8 L Hct 24.1 L MCV 87 MCH 28.2 MCHC 32.4 RDW 19.1 H Plt Count 227 Seg Neutrophils % Not Reportable Sodium 139.4 139.9 Potassium 5.6 H 5.5 H Chloride 109 H 109 H Carbon Dioxide 23 23 Anion Gap 7 8 BUN 44 H 42 H Creatinine 1.32 H 1.39 H Est GFR ( Amer) 47 L 44 L Glucose 162 H 172 H Calcium 8.8 8.9 Phosphorus Magnesium Total Bilirubin 0.7 AST 29 Alkaline Phosphatase 94 Total Protein 5.6 L Albumin 2.9 L TSH Free T4 Urine Color Urine Appearance Urine pH Ur Specific [place] Urine Protein Urine Glucose (UA) Urine Ketones Urine Blood Urine Nitrite Ur Leukocyte Esterase Urine WBC (Auto) Urine RBC (Auto) 05/01/19 05/02/19 05/02/19 16:50 05:11 05:11 WBC 9.4 RBC 2.42 L Hgb 7.0 L Hct 21.4 L MCV 89 MCH 28.9 MCHC 32.6 RDW 19.2 H Plt Count 215 Seg Neutrophils % Sodium Potassium Chloride Carbon Dioxide Anion Gap BUN Creatinine Est GFR ( Amer) Glucose Calcium Phosphorus 4.6 H Magnesium 1.9 Total Bilirubin AST Alkaline Phosphatase Total Protein Albumin TSH Free T4 Urine Color YELLOW Urine Appearance CLEAR Urine pH 6.0 Ur Specific [place] 1.014 Urine Protein 100 H Urine Glucose (UA) NEGATIVE Urine Ketones NEGATIVE Urine Blood NEGATIVE Urine Nitrite NEGATIVE Ur Leukocyte Esterase NEGATIVE Urine WBC (Auto) 1 Urine RBC (Auto) 2 05/02/19 05:11 WBC RBC Hgb Hct MCV MCH MCHC RDW Plt Count Seg Neutrophils % Sodium Potassium Chloride Carbon Dioxide Anion Gap BUN Creatinine Est GFR ( Amer) Glucose Calcium Phosphorus Magnesium Total Bilirubin AST Alkaline Phosphatase Total Protein Albumin TSH 73.20 H Free T4 0.35 L Urine Color Urine Appearance Urine pH Ur Specific [place] Urine Protein Urine Glucose (UA) Urine Ketones Urine Blood Urine Nitrite Ur Leukocyte Esterase Urine WBC (Auto) Urine RBC (Auto) 05/01/19 05/01/19 05/02/19 14:53 18:45 01:15 Troponin I 0.031 0.032 0.038 NT-Pro-B Natriuret Pep 4330 H 05/02/19 05:11 Troponin I NT-Pro-B Natriuret Pep 4570 H Impressions: Chest X-Ray 05/01/19 14:05 IMPRESSION: CARDIOMEGALY. MILD VASCULAR CONGESTION. Elbow X-Ray 05/01/19 14:05 IMPRESSION: Mild soft tissue swelling at the left elbow with a small joint effusion, a radiographic occult fracture cannot be excluded. Hand X-Ray 05/01/19 14:05 IMPRESSION: SOFT TISSUE SWELLING. NO FRACTURE. Humerus X-Ray 05/01/19 14:05 IMPRESSION: NEGATIVE STUDY OF THE RIGHT HUMERUS. NO RADIOGRAPHIC EVIDENCE OF ACUTE INJURY. Shoulder X-Ray 05/01/19 14:05 IMPRESSION: CHRONIC DEGENERATIVE CHANGES. NO RADIOGRAPHIC EVIDENCE OF ACUTE INJURY. Assessment and Plan - Plan Summary Summary: 05/01/2019- Atrial fibrillation with rapid ventricular response-admit to [facility]. Cardizem 10 mg IV bolus, Cardizem drip at 10 mg an hour, given her age and fragile nature I am going to give her DVT prophylaxis heparin I am going to hold off on anticoagulation at this point as I feel the benefits do not outweigh the risks at this time. I will continue to follow. We will continue patient on beta- blockers and convert to p.o. Cardizem as necessary as needed. Type 2 diabetes mellitus-carbohydrate controlled diet with sliding scale insulin before meals and at bedtime. Continue home medication. Acute on chronic diastolic congestive heart failure-I suspect this could be partial reason for this A. fib with rapid ventricular response. Patient states she gained 22 pounds weight in the last several days. I will give her Bumex 1 mg IV every 8 hours. I will evaluate response wait for a bump in her creatinine may have to increase this dosage. Repeat BNP in the a.m. Anemia chronic disease-stable at this time continue to follow daily CBCs Hyperkalemia-potassium 5.6. Will give 30 g of Kayexalate p.o. times 1 repeat BMP in a.m. 05/02/2019- Atrial fibrillation with RVR-Cardizem drip has been DC'd patient on p.o. Cardizem at this time. We will continue beta-blockers and other modalities as needed. Continue to follow. Type 2 diabetes mellitus-stable continue sliding scale insulin before meals and at bedtime Acute on chronic diastolic congestive heart failure improved. We will continue Bumex 1 mg IV every 8 hours at this time for further diuresis. Repeat BMP in a.m. await creatinine bumped. Anemia-chronic at this time continue to follow Hyperkalemia-awaiting a.m. labs Hypothyroidism-patient's TSH is 73. Patient on 75 mcg of Synthroid from home I will increase this to 150 mcg will need a repeated TSH T4 in 2 to 3 months. - Time Time Spent with patient: 15-24 minutes - Inpatient Certification Based on my medical assessment, after consideration of the patient's comorbidities, presenting symptoms, or acuity I expect that the services needed warrant INPATIENT care.: Yes I certify that my determination is in accordance with my understanding of Medicare's requirements for reasonable and necessary INPATIENT services [42 CFR 412.3e].: Yes Medical Necessity: Other - IV diuresis
[2019-05-02 08:21] LABS: ANION GAP 6 (5-19); BLOOD UREA NITROGEN 45 mg/dL (7-20); CALCIUM 8.6 mg/dL (8.4-10.2); CARBON DIOXIDE 26 mmol/L (22-30); CHLORIDE 109 mmol/L (98-107); GLUCOSE 154 mg/dL (75-110)
[2019-05-02] MEDS: DILTIAZEM HCL 120 MG CAP.SR.24H PO SCH (10:13)
[2019-05-02] MEDS: BUMETANIDE INJ/PF 1 MG/4 ML SDV IV SCH ×3 (10:13→17:45)
[2019-05-02] MEDS: LEVOTHYROXINE SODIUM 0.15 MG TABLET PO SCH (10:13)
[2019-05-02 18:58] LABS: ANION GAP 7 (5-19); BLOOD UREA NITROGEN 44 mg/dL (7-20); CALCIUM 8.3 mg/dL (8.4-10.2); CARBON DIOXIDE 25 mmol/L (22-30); CHLORIDE 107 mmol/L (98-107); GLUCOSE 171 mg/dL (75-110); POTASSIUM 5.1 mmol/L (3.6-5.0)
[2019-05-02] MEDS: METOPROLOL SUCCINATE 25 MG TAB.SR.24H PO SCH (22:45)
[2019-05-02] MEDS: ATORVASTATIN CALCIUM 40 MG TABLET PO SCH (22:45)
[2019-05-03] MEDS: ALBUTEROL SULFATE 0.083% NEB 2.5 MG/3 ML AMPUL NEB SCH ×6 (00:16→20:28)
[2019-05-03] MEDS: HEPARIN SOD (PORCINE) 5,000 UNIT/ML 1 ML VIAL SUBCUT SCH ×3 (05:39→21:55)
[2019-05-03] MEDS: LEVOTHYROXINE SODIUM 0.15 MG TABLET PO SCH (05:40)
[2019-05-03 06:10] LABS: HEMATOCRIT 27.8 % (36.0-47.0); HEMOGLOBIN 8.8 g/dL (12.0-15.5); MEAN CORPUSCULAR HEMOGLOBIN 28.2 pg (27.0-33.4); MEAN CORPUSCULAR HGB CONC 31.6 g/dL (32.0-36.0); MEAN CORPUSCULAR VOLUME 89 fl (80-97); PLATELET COUNT 198 10^3/uL (150-450); RED BLOOD COUNT 3.12 10^6/uL (3.72-5.28); RED CELL DISTRIBUTION WIDTH 19.4 % (11.5-14.0); WHITE BLOOD COUNT 8.9 10^3/uL (4.0-10.5)
[2019-05-03] MEDS ORDERED: INFLUENZA QUAD (6MOS+) 2019-20 VAC 0.5 ML SYR IM ONE (08:00)
[2019-05-03] MEDS: INSULIN REG, HUMAN 100 UNIT/ML 3 ML VIAL (PYX) SUBCUT SCH ×4 (08:55→21:55)
[2019-05-03] MEDS: DILTIAZEM HCL 120 MG CAP.SR.24H PO SCH (09:00)
[2019-05-03] MEDS: SERTRALINE HCL 50 MG TABLET PO SCH (09:00)
[2019-05-03] MEDS: METOPROLOL SUCCINATE 25 MG TAB.SR.24H PO SCH ×2 (09:00→21:56)
[2019-05-03] MEDS ORDERED: SODIUM POLYSTYRENE SULFONATE 15 GM/60 ML PO ONE (09:11)
--- NOTE | 2019-05-03 09:16 | PDOC PROGRESS REPORT ---
Subjective Progress Note for:: 05/03/19 Subjective:: 05/02/2019-no complaints this a.m. 05/03/2019-patient states feeling much improved this morning Reason For Visit: ATRIAL FIBRILLATION WITH RAPID,VENTRICULAR Physical Exam Vital Signs: Temp Pulse Resp BP Pulse Ox 98.6 F 92 18 111/57 L 97 05/03/19 07:47 05/03/19 08:31 05/03/19 08:31 05/03/19 07:47 05/03/19 08:31 Intake & Output 05/02/19 05/03/19 05/04/19 06:59 06:59 06:59 Intake Total 309 100 Output Total 875 2300 Balance -566 -2200 Weight 85.8 kg 80.9 kg General appearance: PRESENT: no acute distress, well-developed, well-nourished Neck exam: ABSENT: carotid bruit, JVD, lymphadenopathy, thyromegaly Respiratory exam: PRESENT: clear to auscultation kaylee. ABSENT: rales, rhonchi, wheezes Cardiovascular exam: PRESENT: irregular rhythm Pulses: PRESENT: +1 pedal pulses bilateral Vascular exam: PRESENT: normal capillary refill GI/Abdominal exam: PRESENT: normal bowel sounds, soft. ABSENT: distended, guarding, mass, organolmegaly, rebound, tenderness Extremities exam: PRESENT: full ROM, +2 edema Neurological exam: PRESENT: alert, awake, oriented to person, oriented to place, oriented to time, oriented to situation, CN II-XII grossly intact. ABSENT: motor sensory deficit Psychiatric exam: PRESENT: appropriate affect, normal mood. ABSENT: homicidal ideation, suicidal ideation Skin exam: PRESENT: other - Scattered bruising Results Laboratory Results: 05/03/19 05:29 05/02/19 18:20 05/02/19 05/03/19 18:20 05:29 WBC 8.9 RBC 3.12 L Hgb 8.8 L Hct 27.8 L MCV 89 MCH 28.2 MCHC 31.6 L RDW 19.4 H Plt Count 198 Sodium 139.4 Potassium 5.1 H Chloride 107 Carbon Dioxide 25 Anion Gap 7 BUN 44 H Creatinine 1.49 H Est GFR ( Amer) 41 L Glucose 171 H Calcium 8.3 L 05/01/19 05/01/19 05/02/19 14:53 18:45 01:15 Troponin I 0.031 0.032 0.038 NT-Pro-B Natriuret Pep 4330 H 05/02/19 05:11 Troponin I NT-Pro-B Natriuret Pep 4570 H Impressions: Chest X-Ray 05/01/19 14:05 IMPRESSION: CARDIOMEGALY. MILD VASCULAR CONGESTION. Elbow X-Ray 05/01/19 14:05 IMPRESSION: Mild soft tissue swelling at the left elbow with a small joint effusion, a radiographic occult fracture cannot be excluded. Hand X-Ray 05/01/19 14:05 IMPRESSION: SOFT TISSUE SWELLING. NO FRACTURE. Humerus X-Ray 05/01/19 14:05 IMPRESSION: NEGATIVE STUDY OF THE RIGHT HUMERUS. NO RADIOGRAPHIC EVIDENCE OF ACUTE INJURY. Shoulder X-Ray 05/01/19 14:05 IMPRESSION: CHRONIC DEGENERATIVE CHANGES. NO RADIOGRAPHIC EVIDENCE OF ACUTE INJURY. Assessment and Plan - Plan Summary Summary: 05/01/2019- Atrial fibrillation with rapid ventricular response-admit to IMCU. Cardizem 10 mg IV bolus, Cardizem drip at 10 mg an hour, given her age and fragile nature I am going to give her DVT prophylaxis heparin I am going to hold off on anticoagulation at this point as I feel the benefits do not outweigh the risks at this time. I will continue to follow. We will continue patient on beta-blockers and convert to p.o. Cardizem as necessary as needed. Type 2 diabetes mellitus-carbohydrate controlled diet with sliding scale insulin before meals and at bedtime. Continue home medication. Acute on chronic diastolic congestive heart failure-I suspect this could be partial reason for this A. fib with rapid ventricular response. Patient states she gained 22 pounds weight in the last several days. I will give her Bumex 1 mg IV every 8 hours. I will evaluate response wait for a bump in her creatinine may have to increase this dosage. Repeat BNP in the a.m. Anemia chronic disease-stable at this time continue to follow daily CBCs Hyperkalemia-potassium 5.6. Will give 30 g of Kayexalate p.o. times 1 repeat BMP in a.m. 05/02/2019- Atrial fibrillation with RVR-Cardizem drip has been DC'd patient on p.o. Cardizem at this time. We will continue beta-blockers and other modalities as n eeded. Continue to follow. Type 2 diabetes mellitus-stable continue sliding scale insulin before meals and at bedtime Acute on chronic diastolic congestive heart failure improved. We will continue Bumex 1 mg IV every 8 hours at this time for further diuresis. Repeat BMP in a.m. await creatinine bumped. Anemia-chronic at this time continue to follow Hyperkalemia-awaiting a.m. labs Hypothyroidism-patient's TSH is 73. Patient on 75 mcg of Synthroid from home I will increase this to 150 mcg will need a repeated TSH T4 in 2 to 3 months. 05/03/2019- atrial flutter with RVR. Controlled at this time. Continue Cardizem and beta- blockers. Type 2 diabetes mild-stable continue sliding scale insulin before meals and at bedtime. Acute on chronic diastolic congestive heart failure-improved. Patient is shown a bump in her creatinine at this time will DC Bumex 1 mg IV [address] patient on Bumex 1 mg p.o. twice daily. Repeat BMP in a.m. Anemia-chronic stable Hyperkalemia-remains mild. Will give 1 dose of Kayexalate 15 g p.o. we will repeat BMP in a.m. Hypothyroidism-continue Synthroid - Time Time Spent with patient: 15-24 minutes - Inpatient Certification Based on my medical assessment, after consideration of the patient's comorbidities, presenting symptoms, or acuity I expect that the services needed warrant INPATIENT care.: Yes I certify that my determination is in accordance with my understanding of Medicare's requirements for reasonable and necessary INPATIENT services [42 CFR 412.3e].: Yes Medical Necessity: Need For Continuous Telemetry Monitoring
[2019-05-03] MEDS ORDERED: LEVOTHYROXINE SODIUM 0.075 MG TABLET PO SCH (10:00)
[2019-05-03] MEDS ORDERED: DILTIAZEM HCL 120 MG CAP.SR.24H PO SCH (10:00)
[2019-05-03] MEDS ORDERED: (PENDING PHARMACY ID) (Apremilast [Otezla] 30 MG) PO SCH (10:00)
[2019-05-03] MEDS ORDERED: METOPROLOL TARTRATE 25 MG TABLET PO SCH (10:00)
[2019-05-03] MEDS: BUMETANIDE 1 MG TABLET PO SCH ×2 (11:33→17:09)
[2019-05-03] MEDS: ACETAMINOPHEN 325 MG TABLET PO PRN (14:06)
[2019-05-03 19:31] LABS: ANION GAP 10 (5-19); BLOOD UREA NITROGEN 42 mg/dL (7-20); CALCIUM 7.9 mg/dL (8.4-10.2); CARBON DIOXIDE 25 mmol/L (22-30); CHLORIDE 104 mmol/L (98-107); GLUCOSE 168 mg/dL (75-110); POTASSIUM 5.1 mmol/L (3.6-5.0)
[2019-05-03] MEDS: ATORVASTATIN CALCIUM 40 MG TABLET PO SCH (21:55)
[2019-05-04] MEDS: ALBUTEROL SULFATE 0.083% NEB 2.5 MG/3 ML AMPUL NEB SCH ×7 (00:32→23:49)
[2019-05-04] MEDS: OXYCODONE-ACETAMINOPHEN 5-325 MG TABLET PO PRN (02:03)
[2019-05-04] MEDS: LEVOTHYROXINE SODIUM 0.15 MG TABLET PO SCH (06:14)
[2019-05-04] MEDS: HEPARIN SOD (PORCINE) 5,000 UNIT/ML 1 ML VIAL SUBCUT SCH ×3 (06:14→21:29)
[2019-05-04 06:22] LABS: HEMATOCRIT 20.3 % (36.0-47.0); MEAN CORPUSCULAR HEMOGLOBIN 29.5 pg (27.0-33.4); MEAN CORPUSCULAR HGB CONC 33.5 g/dL (32.0-36.0); MEAN CORPUSCULAR VOLUME 88 fl (80-97); PLATELET COUNT 215 10^3/uL (150-450); RED CELL DISTRIBUTION WIDTH 19.3 % (11.5-14.0); WHITE BLOOD COUNT 9.7 10^3/uL (4.0-10.5)
[2019-05-04 06:24] LABS: HEMOGLOBIN 6.8 g/dL (12.0-15.5)
[2019-05-04] MEDS: FERROUS SULFATE 325 MG TABLET PO SCH (08:21)
[2019-05-04] MEDS: SERTRALINE HCL 50 MG TABLET PO SCH (08:21)
[2019-05-04] MEDS: BUMETANIDE 1 MG TABLET PO SCH (09:49)
[2019-05-04] MEDS: METOPROLOL SUCCINATE 25 MG TAB.SR.24H PO SCH ×2 (09:49→21:35)
[2019-05-04] MEDS: DILTIAZEM HCL 120 MG CAP.SR.24H PO SCH (09:49)
[2019-05-04] MEDS: INSULIN REG, HUMAN 100 UNIT/ML 3 ML VIAL (PYX) SUBCUT SCH ×4 (09:50→21:33)
[2019-05-04 16:25] LABS: HEMATOCRIT 25.1 % (36.0-47.0); HEMOGLOBIN 8.4 g/dL (12.0-15.5); MEAN CORPUSCULAR HEMOGLOBIN 29.3 pg (27.0-33.4); MEAN CORPUSCULAR HGB CONC 33.6 g/dL (32.0-36.0); MEAN CORPUSCULAR VOLUME 87 fl (80-97); PLATELET COUNT 204 10^3/uL (150-450); RED BLOOD COUNT 2.87 10^6/uL (3.72-5.28); RED CELL DISTRIBUTION WIDTH 17.4 % (11.5-14.0); WHITE BLOOD COUNT 10.2 10^3/uL (4.0-10.5)
[2019-05-04 16:41] LABS: ABSOLUTE LYMPHOCYTES# (MANUAL) 0.5 10^3/uL (0.5-4.7); ABSOLUTE MONOCYTES # (MANUAL) 0.3 10^3/uL (0.1-1.4); BAND NEUTROPHILS % (MANUAL) 5 % (3-5); BASOPHILS % (MANUAL) 0 % (0-2); EOSINOPHILS % (MANUAL) 3 % (0-6); LYMPHOCYTES % (MANUAL) 5 % (13-45); METAMYELOCYTES % (MANUAL) 1 % (0); MONOCYTES % (MANUAL) 3 % (3-13); NUCLEATED RED BLOOD CELLS 2 /100 WBC (0); SEGMENTED NEUTROPHILS % (MAN) 83 % (42-78); TOTAL CELLS COUNTED 100
[2019-05-04 16:43] LABS: ANISOCYTOSIS 1+; PLATELET COMMENT ADEQUATE; POLYCHROMASIA 1+
[2019-05-04] MEDS: MAGNESIUM OXIDE 400 MG TABLET PO SCH (17:34)
--- NOTE | 2019-05-04 19:06 | PDOC PROGRESS REPORT ---
Subjective Progress Note for:: 05/04/19 Subjective:: The patient is an 78-year-old female, well-known to our service, current resident Ayana Duarte with a past medical history of atrial fibrillation, CHF, CAD, hyperlipidemia, hypertension, COPD, chronic respiratory failure, DM 2, GERD, arthritis, depression, and anemia who was admitted 05/01/2019 for acute on chronic respiratory failure, acute on chronic diastolic CHF, and atrial fibrillation with RVR. The patient was seen on morning rounds. She was found resting in bed comfortably on supplemental oxygen via nasal cannula 1 L/min; she is not home O2 dependent.The patient reports that she is feeling fatigued and continues to have a nonproductive cough but otherwise denies all symptoms. She specifically denies fever, chills, chest pain, palpitations, dyspnea, orthopnea, abdominal pain, nausea vomiting and diarrhea. She has no specific questions or concerns at this time. Nursing reports the patient appears to be quite fatigued today, but does wake easily and answers all questions, follows directions appropriately. Reason For Visit: ATRIAL FIBRILLATION WITH RAPID,VENTRICULAR Physical Exam Vital Signs: Temp Pulse Resp BP Pulse Ox 98.5 F 85 16 131/76 H 98 05/04/19 14:00 05/04/19 16:20 05/04/19 16:20 05/04/19 14:00 05/04/19 16:20 Intake & Output 05/03/19 05/04/19 05/05/19 06:59 06:59 06:59 Intake Total 100 640 570 Output Total 2300 1300 Balance -2200 -660 570 Weight 80.9 kg 82.9 kg General appearance: PRESENT: no acute distress, cooperative, obese, well- developed, well-nourished Head exam: PRESENT: atraumatic, normocephalic Eye exam: PRESENT: conjunctiva pink, EOMI, PERRLA. ABSENT: scleral icterus Ear exam: PRESENT: normal external ear exam Mouth exam: PRESENT: moist, tongue midline Teeth exam: PRESENT: poor dentation Neck exam: ABSENT: carotid bruit, JVD, lymphadenopathy, thyromegaly Respiratory exam: PRESENT: clear to auscultation kaylee, symmetrical, unlabored, other - Supplemental oxygen via nasal cannula. ABSENT: rales, rhonchi, wheezes Cardiovascular exam: PRESENT: irregular rhythm, +S1, +S2, systolic murmur. ABSENT: diastolic murmur, rubs Pulses: PRESENT: normal dorsalis pedis pul Vascular exam: PRESENT: normal capillary refill GI/Abdominal exam: PRESENT: normal bowel sounds, soft. ABSENT: distended, guarding, mass, organolmegaly, rebound, tenderness Rectal exam: PRESENT: deferred Extremities exam: PRESENT: full ROM, +2 edema - Bilateral upper extremities. ABSENT: calf tenderness, clubbing, pedal edema Neurological exam: PRESENT: alert, awake, oriented to person, oriented to place, oriented to time, oriented to situation, CN II-XII grossly intact. ABSENT: motor sensory deficit Psychiatric exam: PRESENT: appropriate affect, normal mood. ABSENT: homicidal ideation, suicidal ideation Skin exam: PRESENT: dry, intact, pallor, warm. ABSENT: cyanosis, rash Results Laboratory Results: 05/04/19 16:15 05/03/19 18:10 05/03/19 05/04/19 05/04/19 18:10 05:31 07:44 WBC 9.7 RBC 2.30 L Hgb 6.8 L Hct 20.3 L MCV 88 MCH 29.5 MCHC 33.5 RDW 19.3 H Plt Count 215 Seg Neutrophils % Sodium 139.0 Potassium 5.1 H Chloride 104 Carbon Dioxide 25 Anion Gap 10 BUN 42 H Creatinine 1.69 H Est GFR ( Amer) 35 L Glucose 168 H Calcium 7.9 L Blood Type O NEGATIVE Antibody Screen NEGATIVE 05/04/19 16:15 WBC 10.2 RBC 2.87 L Hgb 8.4 L Hct 25.1 L MCV 87 MCH 29.3 MCHC 33.6 RDW 17.4 H Plt Count 204 Seg Neutrophils % Not Reportable Sodium Potassium Chloride Carbon Dioxide Anion Gap BUN Creatinine Est GFR ( Amer) Glucose Calcium Blood Type Antibody Screen 05/01/19 05/01/19 05/02/19 14:53 18:45 01:15 Troponin I 0.031 0.032 0.038 NT-Pro-B Natriuret Pep 4330 H 05/02/19 05:11 Troponin I NT-Pro-B Natriuret Pep 4570 H Impressions: Chest X-Ray 05/01/19 14:05 IMPRESSION: CARDIOMEGALY. MILD VASCULAR CONGESTION. Elbow X-Ray 05/01/19 14:05 IMPRESSION: Mild soft tissue swelling at the left elbow with a small joint eff usion, a radiographic occult fracture cannot be excluded. Hand X-Ray 05/01/19 14:05 IMPRESSION: SOFT TISSUE SWELLING. NO FRACTURE. Humerus X-Ray 05/01/19 14:05 IMPRESSION: NEGATIVE STUDY OF THE RIGHT HUMERUS. NO RADIOGRAPHIC EVIDENCE OF ACUTE INJURY. Shoulder X-Ray 05/01/19 14:05 IMPRESSION: CHRONIC DEGENERATIVE CHANGES. NO RADIOGRAPHIC EVIDENCE OF ACUTE INJURY. Assessment and Plan - Diagnosis (1) Acute on chronic diastolic CHF (congestive heart failure) Is this a current diagnosis for this admission?: Yes Plan: Patient with evidence of CHF; acute on chronic respiratory failure, bibasilar crackles, dependent edema. proBNP elevated to 4570. Chest x-ray demonstrated cardiomegaly with mild vascular congestion. Continue diltiazem, metoprolol, and atorvastatin. Not a candidate for aspirin or anticoagulation at this time due to anemia requiring transfusion. Will discontinue Bumex and start IV furosemide for increased diuresis today. Cardiac diet. Strict I&O's; daily weights. Discussed with patient today; remains DNR. Not yet interested in palliative care or hospice services. (2) Hyperkalemia Is this a current diagnosis for this admission?: Yes Plan: Overall improved; 5.6-> 5.1 Persistently elevated. No peaked T-waves. Have started IV lasix today; will continue to monitor w/ daily chemistries. May not require further intervention. (3) Anemia Qualifiers: Anemia type: due to chronic kidney disease Chronic kidney disease stage: stage 3 (moderate) Qualified Code(s): N18.3 - Chronic kidney disease, stage 3 (moderate); D63.1 - Anemia in chronic kidney disease Is this a current diagnosis for this admission?: Yes Plan: Chronic anemia; hemoglobin 7.8 on admission with gradual downward trend to 6.8. Received 1 unit PRBCs today. Follow up H&H 8.4 Patient does have a Hx of guiac positive stools; has declined colonoscopy multiple times in the recent past during prior admissions. Continue to monitor daily CBCs; transfuse as needed. Continue multivitamin and iron supplementation. (4) Atrial fibrillation with RVR Is this a current diagnosis for this admission?: Yes Plan: Now rate controlled on diltiazem CD 120 mg daily and Toprol-XL 25 mg every 12 hours. Patient is not a candidate for chronic anticoagulation secondary to guaiac positive stools, and acute on chronic anemia requiring blood transfusions. (5) Diabetes mellitus type 2 in obese Is this a current diagnosis for this admission?: Yes Plan: Patient is placed on a consistent carb diet. Accu-Cheks before meals and at bedtime with sliding scale insulin. Hypoglycemia protocol in place. (6) Hypothyroidism Qualifiers: Hypothyroidism type: unspecified Qualified Code(s): E03.9 - Hypothyroidism, unspecified Is this a current diagnosis for this admission?: Yes Plan: Continue home dose levothyroxine. - Time Time Spent with patient: 35 or more minutes Medications reviewed and adjusted accordingly: Yes Anticipated discharge: SNF - established resident at [facility]. Within: within 72 hours
--- NOTE | 2019-05-04 19:10 | ADVANCED CARE ---
- Diagnosis (1) Acute on chronic diastolic CHF (congestive heart failure) Diagnosis Current: Yes (2) Hyperkalemia Diagnosis Current: Yes (3) Anemia Diagnosis Current: Yes (4) Atrial fibrillation with RVR Diagnosis Current: Yes (5) Diabetes mellitus type 2 in obese Diagnosis Current: Yes (6) Hypothyroidism Diagnosis Current: Yes Attendance: The patient, Nakita Tate, and her primary nurse. Resuscitation Status: Do Not Resuscitate Discussion: Discussed the patient's chronic and acute medical conditions. We discussed her frequent readmissions to the hospital related to her acute on chronic respiratory failure secondary to uncontrolled A. fib and CHF exacerbations. I did advise the patient that she may be approaching the limits of medical interventions and our ability to manage her chronic medical conditions effectively to prevent readmissions and to improve quality of life. Discussed with the patient that there becomes a point when the patient is to determine whether or not the continued medical interventions are worthwhile and that there may come a time when it is a appropriate to consider a transition to a focus on comfort only. The patient does indicate that she understands this but is not yet ready to transition to palliative care hospice services. She states, "so long as there is something you can do, I would like for you to do it." She does confirm that she is a DNR/DNI, but does request continued hospital admissions and medication management of her conditions. Care Planning Goals: DNR/DNI. Otherwise, continue with aggressive medical interventions. Not interested in palliative care or hospice services at this time. Time Spent: 16 min
[2019-05-04] MEDS: ATORVASTATIN CALCIUM 40 MG TABLET PO SCH (21:33)
[2019-05-04] MEDS: MIRTAZAPINE 15 MG TABLET PO SCH (21:33)
[2019-05-04] MEDS: MELATONIN 5 MG TABLET PO SCH (21:35)
[2019-05-04] MEDS ORDERED: FUROSEMIDE INJ/PF 20 MG/2 ML SDV IV SCH (22:00)
[2019-05-05] MEDS: ALBUTEROL SULFATE 0.083% NEB 2.5 MG/3 ML AMPUL NEB SCH ×4 (04:19→16:04)
[2019-05-05 04:56] LABS: HEMATOCRIT 24.9 % (36.0-47.0); HEMOGLOBIN 8.2 g/dL (12.0-15.5); MEAN CORPUSCULAR HGB CONC 32.8 g/dL (32.0-36.0); MEAN CORPUSCULAR VOLUME 88 fl (80-97); PLATELET COUNT 233 10^3/uL (150-450); RED BLOOD COUNT 2.81 10^6/uL (3.72-5.28); RED CELL DISTRIBUTION WIDTH 17.8 % (11.5-14.0)
[2019-05-05 05:22] LABS: ANION GAP 7 (5-19); BLOOD UREA NITROGEN 39 mg/dL (7-20); CALCIUM 8.5 mg/dL (8.4-10.2); CARBON DIOXIDE 31 mmol/L (22-30); CHLORIDE 101 mmol/L (98-107); GLUCOSE 156 mg/dL (75-110)
[2019-05-05] MEDS: HEPARIN SOD (PORCINE) 5,000 UNIT/ML 1 ML VIAL SUBCUT SCH ×3 (06:07→22:33)
[2019-05-05] MEDS: LEVOTHYROXINE SODIUM 0.15 MG TABLET PO SCH (06:09)
[2019-05-05] MEDS: PANTOPRAZOLE SODIUM 40 MG TABLET.DR PO SCH (06:09)
[2019-05-05] MEDS: PREDNISONE 5 MG TABLET PO SCH (08:32)
[2019-05-05] MEDS: FERROUS SULFATE 325 MG TABLET PO SCH (08:32)
[2019-05-05] MEDS: SERTRALINE HCL 50 MG TABLET PO SCH (08:33)
[2019-05-05] MEDS: INSULIN REG, HUMAN 100 UNIT/ML 3 ML VIAL (PYX) SUBCUT SCH ×4 (08:33→22:39)
[2019-05-05] MEDS: MULTIVITAMIN TABLET PO SCH (11:00)
[2019-05-05] MEDS: METOPROLOL SUCCINATE 25 MG TAB.SR.24H PO SCH ×2 (11:00→22:38)
[2019-05-05] MEDS: MAGNESIUM OXIDE 400 MG TABLET PO SCH ×2 (11:00→17:23)
[2019-05-05] MEDS: FLUTICASONE/UMECLIDIN/VILANTER 100-62.5-25 MCG/DOSE IH SCH (11:00)
[2019-05-05] MEDS: TIOTROPIUM BROMIDE DPI 5 CAP/KIT (18 MCG/CAP) IH SCH (11:04)
[2019-05-05] MEDS: CYCLOSPORINE 0.05% OPH EMULSIO 0.4 ML DROPERETTE OU SCH (11:04)
[2019-05-05] MEDS: DILTIAZEM HCL 120 MG CAP.SR.24H PO SCH (11:04)
--- NOTE | 2019-05-05 19:00 | PDOC PROGRESS REPORT ---
Subjective Progress Note for:: 05/05/19 Subjective:: The patient is an 78-year-old female, well-known to our service, current resident Ayana Duarte with a past medical history of atrial fibrillation, CHF, CAD, hyperlipidemia, hypertension, COPD, chronic respiratory failure, DM 2, GERD, arthritis, depression, and anemia who was admitted 05/01/2019 for acute on chronic respiratory failure, acute on chronic diastolic CHF, and atrial fibrillation with RVR. The patient was seen on morning rounds. She was found resting in the recliner, comfortably, on supplemental oxygen via nasal cannula 1 L/min; she is not home O2 dependent. The patient reports that she is feeling fatigued, but much improved today. She does continue to have a nonproductive cough but otherwise denies all symptoms. She specifically denies fever, chills, chest pain, palpitations, dyspnea, orthopnea, abdominal pain, nausea, vomiting and diarrhea. She has no specific questions or concerns at this time. Nursing has no questions or concerns today; report patient looks much improved and has been up with min assist today to ambulate in room. Reason For Visit: ATRIAL FIBRILLATION WITH RAPID,VENTRICULAR Physical Exam Vital Signs: Temp Pulse Resp BP Pulse Ox 97.7 F 71 18 101/51 L 97 05/05/19 14:53 05/05/19 16:04 05/05/19 16:04 05/05/19 14:53 05/05/19 16:04 Intake & Output 05/04/19 05/05/19 05/06/19 06:59 06:59 06:59 Intake Total 640 570 360 Output Total 1300 1150 Balance -660 -580 360 Weight 82.9 kg 81.4 kg General appearance: PRESENT: no acute distress, cooperative, obese, well- developed, well-nourished Head exam: PRESENT: atraumatic, normocephalic Eye exam: PRESENT: conjunctiva pink, EOMI, PERRLA. ABSENT: scleral icterus Ear exam: PRESENT: normal external ear exam Mouth exam: PRESENT: moist, tongue midline Teeth exam: PRESENT: poor dentation Neck exam: ABSENT: carotid bruit, JVD, lymphadenopathy, thyromegaly Respiratory exam: PRESENT: clear to auscultation kaylee, symmetrical, unlabored, other - Supplemental oxygen via nasal cannula. ABSENT: rales, rhonchi, wheezes Cardiovascular exam: PRESENT: irregular rhythm, +S1. ABSENT: diastolic murmur, rubs, systolic murmur Pulses: PRESENT: normal dorsalis pedis pul Vascular exam: PRESENT: normal capillary refill GI/Abdominal exam: PRESENT: normal bowel sounds, soft. ABSENT: distended, guarding, mass, organolmegaly, rebound, tenderness Rectal exam: PRESENT: deferred Gentrourinary exam: PRESENT: indwelling catheter Extremities exam: PRESENT: full ROM, +2 edema - Right upper extremity; edema to left upper extremity has resolved. No edema to bilateral lower extremities noted.. ABSENT: calf tenderness, clubbing, pedal edema Neurological exam: PRESENT: alert, awake, oriented to person, oriented to place, oriented to time, oriented to situation, CN II-XII grossly intact. ABSENT: motor sensory deficit Psychiatric exam: PRESENT: appropriate affect, normal mood. ABSENT: homicidal ideation, suicidal ideation Skin exam: PRESENT: dry, intact, warm, other - Scattered ecchymosis. ABSENT: cyanosis, rash Results Laboratory Results: 05/05/19 04:12 05/05/19 04:12 05/05/19 05/05/19 04:12 04:12 WBC 13.0 H RBC 2.81 L Hgb 8.2 L Hct 24.9 L MCV 88 MCH 29.0 MCHC 32.8 RDW 17.8 H Plt Count 233 Sodium 139.2 Potassium 4.0 Chloride 101 Carbon Dioxide 31 H Anion Gap 7 BUN 39 H Creatinine 1.71 H Est GFR ( Amer) 35 L Glucose 156 H Calcium 8.5 05/01/19 05/01/19 05/02/19 14:53 18:45 01:15 Troponin I 0.031 0.032 0.038 NT-Pro-B Natriuret Pep 4330 H 05/02/19 05/05/19 05:11 04:12 Troponin I NT-Pro-B Natriuret Pep 4570 H 2990 H Impressions: Chest X-Ray 05/01/19 14:05 IMPRESSION: CARDIOMEGALY. MILD VASCULAR CONGESTION. Elbow X-Ray 05/01/19 14:05 IMPRESSION: Mild soft tissue swelling at the left elbow with a small joint effusion, a radiographic occult fracture cannot be excluded. Hand X-Ray 05/01/19 14:05 IMPRESSION: SOFT TISSUE SWELLING. NO FRACTURE. Humerus X-Ray 05/01/19 14:05 IMPRESSION: NEGATIVE STUDY OF THE RIGHT HUMERUS. NO RADIOGRAPHIC EVIDENCE OF ACUTE INJURY. Shoulder X-Ray 05/01/19 14:05 IMPRESSION: CHRONIC DEGENERATIVE CHANGES. NO RADIOGRAPHIC EVIDENCE OF ACUTE INJURY. Assessment and Plan - Diagnosis (1) Acute on chronic diastolic CHF (congestive heart failure) Is this a current diagnosis for this admission?: Yes Plan: Significantly improved; decreased oxygen requirement, clear lung sounds, decreased peripheral edema, decreased fatigue. Patient with evidence of CHF; acute on chronic respiratory failure proBNP elevated to 4570-> 2990 Chest x-ray demonstrated cardiomegaly with mild vascular congestion. Continue diltiazem, metoprolol, and atorvastatin. Not a candidate for aspirin or anticoagulation at this time due to anemia requiring transfusion. Previously on Bumex; discontinued yesterday. Received 1 dose of IV furosemide yesterday. Excellent urinary output today. Weight down 6 kg. Diuretics now on hold due to creatinine bump. Not receiving IV fluids. Fluid restricted to 1.5 L daily. Cardiac diet. Strict I&O's; daily weights. Discussed with patient yesterdat; remains DNR. Not yet interested in palliative care or hospice services. See separate ACP note. (2) Hyperkalemia Is this a current diagnosis for this admission?: Yes Plan: Resolved. Persistently elevated. No peaked T-waves. Will continue to monitor w/ daily chemistries. (3) Anemia Qualifiers: Anemia type: due to chronic kidney disease Chronic kidney disease stage: stage 3 (moderate) Qualified Code(s): N18.3 - Chronic kidney disease, stage 3 (moderate); D63.1 - Anemia in chronic kidney disease Is this a current diagnosis for this admission?: Yes Plan: Chronic anemia; hemoglobin 7.8 on admission with gradual downward trend to 6.8. Received 1 unit PRBCs today. Follow up H&H 8.2 Patient does have a Hx of guiac positive stools; has declined colonoscopy multiple times in the recent past during prior admissions. Continue to monitor daily CBCs; transfuse as needed. Continue multivitamin and iron supplementation. (4) Atrial fibrillation with RVR Is this a current diagnosis for this admission?: Yes Plan: Now rate controlled on diltiazem CD 120 mg daily and Toprol-XL 25 mg every 12 hours. Patient is not a candidate for chronic anticoagulation secondary to guaiac positive stools, and acute on chronic anemia requiring blood transfusions. (5) Diabetes mellitus type 2 in obese Is this a current diagnosis for this admission?: Yes Plan: Patient is placed on a consistent carb diet. Accu-Cheks before meals and at bedtime with sliding scale insulin. Hypoglycemia protocol in place. (6) Hypothyroidism Qualifiers: Hypothyroidism type: unspecified Qualified Code(s): E03.9 - Hypothyroidism, unspecified Is this a current diagnosis for this admission?: Yes Plan: Continue home dose levothyroxine. - Time Time Spent with patient: 25-34 minutes Medications reviewed and adjusted accordingly: Yes Anticipated discharge: SNF - Established resident at [facility] Within: within 24 hours - If CHF remained stable.
[2019-05-05] MEDS: ALBUTEROL SULFATE 0.083% NEB 2.5 MG/3 ML AMPUL NEB PRN (20:18)
[2019-05-05] MEDS: ATORVASTATIN CALCIUM 40 MG TABLET PO SCH (22:38)
[2019-05-05] MEDS: MIRTAZAPINE 15 MG TABLET PO SCH (22:38)
[2019-05-05] MEDS: MELATONIN 5 MG TABLET PO SCH (22:39)
[2019-05-06] MEDS: HEPARIN SOD (PORCINE) 5,000 UNIT/ML 1 ML VIAL SUBCUT SCH ×3 (05:27→22:10)
[2019-05-06] MEDS: PANTOPRAZOLE SODIUM 40 MG TABLET.DR PO SCH (05:29)
[2019-05-06] MEDS: LEVOTHYROXINE SODIUM 0.15 MG TABLET PO SCH (05:29)
[2019-05-06 06:43] LABS: ANION GAP 5 (5-19); BLOOD UREA NITROGEN 43 mg/dL (7-20); CALCIUM 7.9 mg/dL (8.4-10.2); CARBON DIOXIDE 31 mmol/L (22-30); CHLORIDE 102 mmol/L (98-107); GLUCOSE 125 mg/dL (75-110); POTASSIUM 4.3 mmol/L (3.6-5.0)
[2019-05-06] MEDS ORDERED: NORMAL SALINE 1000 ML 1,000 ML IV PRN (07:58)
[2019-05-06] MEDS ORDERED: ZINC PO SCH (08:00)
[2019-05-06] MEDS ORDERED: VIT C PO SCH (08:00)
[2019-05-06] MEDS ORDERED: VIT E PO SCH (08:00)
[2019-05-06] MEDS ORDERED: COPPER PO SCH (08:00)
[2019-05-06] MEDS ORDERED: [UNRECOGNIZED DRUG - OTHER] PO SCH (08:00)
[2019-05-06] MEDS ORDERED: VIT A PO SCH (08:00)
[2019-05-06] MEDS: FERROUS SULFATE 325 MG TABLET PO SCH (10:21)
[2019-05-06] MEDS: METOPROLOL SUCCINATE 25 MG TAB.SR.24H PO SCH ×2 (10:21→22:06)
[2019-05-06] MEDS: MULTIVITAMIN TABLET PO SCH (10:21)
[2019-05-06] MEDS: DILTIAZEM HCL 120 MG CAP.SR.24H PO SCH (10:21)
[2019-05-06] MEDS: SERTRALINE HCL 50 MG TABLET PO SCH (10:21)
[2019-05-06] MEDS: MAGNESIUM OXIDE 400 MG TABLET PO SCH ×2 (10:21→18:01)
[2019-05-06] MEDS: CYCLOSPORINE 0.05% OPH EMULSIO 0.4 ML DROPERETTE OU SCH (10:25)
[2019-05-06] MEDS: LIDOCAINE 5% (700 MG) TRANSDERMAL ADH..PATCH TP SCH (10:25)
[2019-05-06] MEDS: FLUTICASONE/UMECLIDIN/VILANTER 100-62.5-25 MCG/DOSE IH SCH (10:26)
[2019-05-06] MEDS: TIOTROPIUM BROMIDE DPI 5 CAP/KIT (18 MCG/CAP) IH SCH (10:26)
[2019-05-06] MEDS: PREDNISONE 5 MG TABLET PO SCH (10:34)
--- NOTE | 2019-05-06 11:18 | ADVANCED CARE ---
- Diagnosis (1) Acute on chronic diastolic CHF (congestive heart failure) Diagnosis Current: Yes (2) Hyperkalemia Diagnosis Current: Yes (3) Anemia Diagnosis Current: Yes (4) Atrial fibrillation with RVR Diagnosis Current: Yes (5) Diabetes mellitus type 2 in obese Diagnosis Current: Yes (6) Hypothyroidism Diagnosis Current: Yes Attendance: The patient and close friend, Sharmin Boudreaux. Resuscitation Status: Do Not Resuscitate Discussion: Discussed the patient's acute and chronic medical conditions, as well as, her prognosis and life expectancy given her pulmonary hypertension, CHF, chronic kidney disease, and limited mobility. Reviewed the role of both palliative care and hospice nursing/healthcare providers. Discussed how each healthcare service could potentially improve her overall quality of life, life expectancy, and sense of safety/personal empowerment. Patient and close friend, Sharmin, requesting palliative care referral. Confirm DNR/DNI status. Care Planning Goals: DNRI/DNI Palliative Care Consultation/Referral Document(s) Completed: None Time Spent: 20 min
[2019-05-06] MEDS: ALBUTEROL SULFATE 0.083% NEB 2.5 MG/3 ML AMPUL NEB PRN (11:23)
[2019-05-06] MEDS: INSULIN REG, HUMAN 100 UNIT/ML 3 ML VIAL (PYX) SUBCUT SCH ×4 (12:22→22:14)
--- NOTE | 2019-05-06 13:01 | PDOC PROGRESS REPORT ---
Subjective Progress Note for:: 05/06/19 Subjective:: The patient is an 78-year-old female, well-known to our service, current resident Ayana Duarte with a past medical history of atrial fibrillation, CHF, CAD, hyperlipidemia, hypertension, COPD, chronic respiratory failure, DM 2, GERD, arthritis, depression, and anemia who was admitted 05/01/2019 for acute on chronic respiratory failure, acute on chronic diastolic CHF, and atrial fibrillation with RVR. The patient was seen on morning rounds with close friend, Sharmin, present. She was found resting in bed comfortably on supplemental oxygen via nasal cannula 2 L/min. The patient's friend states that she has been on supplemental oxygen continuously for several months now. The patient reports that she is feeling well today. She does continue to have a nonproductive cough but otherwise denies all symptoms. She specifically denies fever, chills, chest pain, palpitations, dyspnea, orthopnea, abdominal pain, nausea, vomiting and diarrhea. She has no specific questions or concerns at this time. Nursing has no questions or concerns today. Reason For Visit: ATRIAL FIBRILLATION WITH RAPID,VENTRICULAR Physical Exam Vital Signs: Temp Pulse Resp BP Pulse Ox 98.0 F 74 16 104/59 L 99 05/06/19 03:06 05/06/19 11:23 05/06/19 11:23 05/06/19 03:06 05/06/19 11:23 Intake & Output 05/05/19 05/06/19 05/07/19 06:59 06:59 06:59 Intake Total 570 460 Output Total 1150 450 Balance -580 10 Weight 81.4 kg 81.3 kg General appearance: PRESENT: no acute distress, cooperative, obese, well- developed, well-nourished Head exam: PRESENT: atraumatic, normocephalic Eye exam: PRESENT: conjunctiva pink, EOMI, PERRLA. ABSENT: scleral icterus Mouth exam: PRESENT: moist, tongue midline Teeth exam: PRESENT: poor dentation Neck exam: ABSENT: carotid bruit, JVD, lymphadenopathy, thyromegaly Respiratory exam: PRESENT: clear to auscultation kaylee, symmetrical, unlabored, other - Supplemental oxygen via nasal cannula. ABSENT: rales, rhonchi, wheezes Cardiovascular exam: PRESENT: irregular rhythm, +S1, +S2. ABSENT: diastolic murmur, rubs, systolic murmur Pulses: PRESENT: normal dorsalis pedis pul Vascular exam: PRESENT: normal capillary refill GI/Abdominal exam: PRESENT: normal bowel sounds, soft. ABSENT: distended, guarding, mass, organolmegaly, rebound, tenderness Rectal exam: PRESENT: deferred Extremities exam: PRESENT: full ROM, +1 edema - RUE; improved. ABSENT: calf tenderness, clubbing, pedal edema Neurological exam: PRESENT: alert, awake, oriented to person, oriented to place, oriented to time, oriented to situation, CN II-XII grossly intact. ABSENT: motor sensory deficit Psychiatric exam: PRESENT: appropriate affect, normal mood. ABSENT: homicidal ideation, suicidal ideation Skin exam: PRESENT: dry, intact, warm, other - Scattered ecchymosis. ABSENT: cyanosis, rash Results Laboratory Results: 05/05/19 04:12 05/06/19 06:06 05/06/19 06:06 Sodium 138.4 Potassium 4.3 Chloride 102 Carbon Dioxide 31 H Anion Gap 5 BUN 43 H Creatinine 1.97 H Est GFR ( Amer) 30 L Glucose 125 H Calcium 7.9 L 05/01/19 05/01/19 05/02/19 14:53 18:45 01:15 Troponin I 0.031 0.032 0.038 NT-Pro-B Natriuret Pep 4330 H 05/02/19 05/05/19 05:11 04:12 Troponin I NT-Pro-B Natriuret Pep 4570 H 2990 H Impressions: Chest X-Ray 05/01/19 14:05 IMPRESSION: CARDIOMEGALY. MILD VASCULAR CONGESTION. Elbow X-Ray 05/01/19 14:05 IMPRESSION: Mild soft tissue swelling at the left elbow with a small joint effusion, a radiographic occult fracture cannot be excluded. Hand X-Ray 05/01/19 14:05 IMPRESSION: SOFT TISSUE SWELLING. NO FRACTURE. Humerus X-Ray 05/01/19 14:05 IMPRESSION: NEGATIVE STUDY OF THE RIGHT HUMERUS. NO RADIOGRAPHIC EVIDENCE OF ACUTE INJURY. Shoulder X-Ray 05/01/19 14:05 IMPRESSION: CHRONIC DEGENERATIVE CHANGES. NO RADIOGRAPHIC EVIDENCE OF ACUTE INJURY. Assessment and Plan - Diagnosis (1) Acute on chronic diastolic CHF (congestive heart failure) Is this a current diagnosis for this admission?: Yes Plan: Acute exacerbation is resolved; now on baseline oxygen requirement, clear lung sounds, decreased peripheral edema, decreased fatigue. Patient was admitted with evidence of acute CHF; acute on chronic respiratory failure proBNP elevated to 4570-> 2990 Chest x-ray demonstrated cardiomegaly with mild vascular congestion. Continue diltiazem, metoprolol, and atorvastatin. Not a candidate for aspirin or anticoagulation at this time due to anemia requiring transfusion. Previously on Bumex; received 1 dose of IV furosemide yesterday. Excellent urinary output today. Weight down 6 kg. Diuretics now on hold due to creatinine bump. Overall poor p.o. intake; encouraged patient to drink fluids on her meal tray. Fluid restricted to 1.5 L daily. Cardiac diet. Strict I&O's; daily weights. Discussed with patient today; remains DNR. Interested in palliative care services. See separate ACP note. (2) Hyperkalemia Is this a current diagnosis for this admission?: Yes Plan: Resolved. Persistently elevated. No peaked T-waves. Will continue to monitor w/ daily chemistries. (3) Anemia Qualifiers: Anemia type: due to chronic kidney disease Chronic kidney disease stage: stage 3 (moderate) Qualified Code(s): N18.3 - Chronic kidney disease, stage 3 (moderate); D63.1 - Anemia in chronic kidney disease Is this a current diagnosis for this admission?: Yes Plan: Chronic anemia; hemoglobin 7.8 on admission with gradual downward trend to 6.8. Received 1 unit PRBCs today. Follow up H&H 8.2 Patient does have a Hx of guiac positive stools; has declined colonoscopy multiple times in the recent past during prior admissions. Continue to monitor daily CBCs; transfuse as needed. Continue multivitamin and iron supplementation. (4) Atrial fibrillation with RVR Is this a current diagnosis for this admission?: Yes Plan: Now rate controlled on diltiazem CD 120 mg daily and Toprol-XL 25 mg every 12 hours. Patient is not a candidate for chronic anticoagulation secondary to guaiac positive stools, and acute on chronic anemia requiring blood transfusions. (5) Diabetes mellitus type 2 in obese Is this a current diagnosis for this admission?: Yes Plan: Patient is placed on a consistent carb diet. Accu-Cheks before meals and at bedtime with sliding scale insulin. Hypoglycemia protocol in place. (6) Hypothyroidism Qualifiers: Hypothyroidism type: unspecified Qualified Code(s): E03.9 - Hypothyroidism, unspecified Is this a current diagnosis for this admission?: Yes Plan: Continue home dose levothyroxine. (7) Acute kidney injury superimposed on chronic kidney disease Is this a current diagnosis for this admission?: Yes Plan: Creatinine bump to 1.9 today. Secondary to diuresis for management of acute CHF exacerbation. Diuretics placed on hold yesterday. Will provide 1 L of normal saline today. Encourage patient to drink p.o. fluids; she is fluid restricted to 1.5 L daily. Avoid nephrotoxic medications as able. Daily chemistry. - Time Time Spent with patient: 25-34 minutes Medications reviewed and adjusted accordingly: Yes Anticipated discharge: SNF Within: within 24 hours - if creatinine is improved.
[2019-05-06] MEDS: ATORVASTATIN CALCIUM 40 MG TABLET PO SCH (22:06)
[2019-05-06] MEDS: MIRTAZAPINE 15 MG TABLET PO SCH (22:06)
[2019-05-06] MEDS: MELATONIN 5 MG TABLET PO SCH (22:06)
[2019-05-07] MEDS: HEPARIN SOD (PORCINE) 5,000 UNIT/ML 1 ML VIAL SUBCUT SCH ×2 (05:27→13:39)
[2019-05-07] MEDS: PANTOPRAZOLE SODIUM 40 MG TABLET.DR PO SCH (05:50)
[2019-05-07] MEDS: LEVOTHYROXINE SODIUM 0.15 MG TABLET PO SCH (05:50)
[2019-05-07 06:07] LABS: ANION GAP 5 (5-19); BLOOD UREA NITROGEN 45 mg/dL (7-20); CARBON DIOXIDE 30 mmol/L (22-30); CHLORIDE 104 mmol/L (98-107); GLUCOSE 133 mg/dL (75-110); POTASSIUM 4.4 mmol/L (3.6-5.0)
[2019-05-07] MEDS: LIDOCAINE 5% (700 MG) TRANSDERMAL ADH..PATCH TP SCH (11:11)
[2019-05-07] MEDS: CYCLOSPORINE 0.05% OPH EMULSIO 0.4 ML DROPERETTE OU SCH (11:11)
[2019-05-07] MEDS: PREDNISONE 5 MG TABLET PO SCH (11:13)
[2019-05-07] MEDS: METOPROLOL SUCCINATE 25 MG TAB.SR.24H PO SCH (11:15)
[2019-05-07] MEDS: FERROUS SULFATE 325 MG TABLET PO SCH (11:15)
[2019-05-07] MEDS: SERTRALINE HCL 50 MG TABLET PO SCH (11:15)
[2019-05-07] MEDS: MAGNESIUM OXIDE 400 MG TABLET PO SCH (11:16)
[2019-05-07] MEDS: INSULIN REG, HUMAN 100 UNIT/ML 3 ML VIAL (PYX) SUBCUT SCH ×3 (11:16→16:30)
[2019-05-07] MEDS: DILTIAZEM HCL 120 MG CAP.SR.24H PO SCH (11:16)
[2019-05-07] MEDS: TIOTROPIUM BROMIDE DPI 5 CAP/KIT (18 MCG/CAP) IH SCH (11:17)
[2019-05-07] MEDS: FLUTICASONE/UMECLIDIN/VILANTER 100-62.5-25 MCG/DOSE IH SCH (11:25)
[2019-05-07] MEDS: MULTIVITAMIN TABLET PO SCH (11:25)
[2019-05-07] MEDS: ALBUTEROL SULFATE 0.083% NEB 2.5 MG/3 ML AMPUL NEB PRN (12:57)
--- NOTE | 2019-05-07 13:35 | PDOC TRANSFER SUMMARY ---
Impression - Admit/DC Date/PCP Admission Date/Primary Care Provider: 05/01/19 18:24 GERSON MAY Discharge Date: 05/07/19 - Discharge Diagnosis (1) Acute on chronic diastolic CHF (congestive heart failure) Is this a current diagnosis for this admission?: Yes (2) Hyperkalemia Is this a current diagnosis for this admission?: Yes (3) Anemia Is this a current diagnosis for this admission?: Yes (4) Atrial fibrillation with RVR Is this a current diagnosis for this admission?: Yes (5) Diabetes mellitus type 2 in obese Is this a current diagnosis for this admission?: Yes (6) Hypothyroidism Is this a current diagnosis for this admission?: Yes (7) Acute kidney injury superimposed on chronic kidney disease Is this a current diagnosis for this admission?: Yes - Additional Information Resuscitation Status: Do Not Resuscitate Discharge Diet: Cardiac, Diabetic Discharge Activity: Activity As Tolerated, Balance Activity w/Rest, Weigh Daily Referrals: GERSON MAY MD [Primary Care Provider] - Follow up as needed (Patient resides at [facility] Prescriptions: Diltiazem HCl [Cardizem Cd 120 mg Capsule] 120 mg PO DAILY #30 cap.sr.24h Furosemide [Lasix 20 mg Tablet] 20 mg PO QAM #30 tablet Multivitamin [Tab-A-Deana (Multiple Vitamin) Tablet] 1 tab PO DAILY #90 tablet Metoprolol Succinate [Toprol Xl 25 mg Tab.sr] 25 mg PO Q12 #60 tab.sr.24h Home Medications: Acetaminophen [Tylenol] 650 mg PO Q4HP PRN 04/20/19 Apremilast [Otezla] 30 mg PO Q12 04/20/19 Ascorbic Acid [Vitamin C 500 mg Tablet] 500 mg PO DAILY 04/20/19 Aspirin [Ecotrin 81 mg EC Tablet] 81 mg PO DAILY 04/20/19 Atorvastatin Calcium [Lipitor 40 mg Tablet] 40 mg PO QHS 04/20/19 Benzonatate [Tessalon Perle 100 mg Capsule] 200 mg PO Q8HP PRN 04/20/19 Calcium Carbonate/Vitamin D3 [Calcium 600-Vit D3 400 Tablet] 2 each PO DAILY 04/20/19 Cholecalciferol (Vitamin D3) [Vitamin D3 1000 Unit Tablet] 1,000 unit PO DAILY 04/20/19 Cyclosporine 0.05% Oph Emulsio [Restasis 0.05% Oph Emulsion Pf 0.4 ml] 1 drop OU DAILY 04/20/19 Ferrous Sulfate [Feosol 325 mg Tablet] 325 mg PO QAM 04/20/19 Fluticasone/Umeclidin/Vilanter [Trelegy 100-62.5-25 Mcg Ellipta 14 Dose/Dpi] 1 puff IH DAILY 04/20/19 Insulin Glargine,Hum.rec.anlog [Basaglar Kwikpen U-100] 20 unit SQ QHS 04/20/19 Insulin Lispro [Humalog Insulin (Lispro) 100 unit/mL] See Protocol SUBCUT .SLD SCALE 04/20/19 Lidocaine [Lidoderm 5% (700 mg) Transdermal Patch] 1 patch TP QAM 04/20/19 Mag Hydrox/Al Hydrox/Simeth [Maalox Plus Susp 30 Udcup] 20 ml PO DAILYP PRN 04/20/19 Magnesium Oxide [Mag-Ox 400 mg Tablet] 400 mg PO BID 04/20/19 Melatonin [Melatonin 5 mg Tablet] 5 mg PO QHS 04/20/19 Mirtazapine 7.5 mg PO QHS 04/20/19 Pantoprazole Sodium [Protonix [address] Tablet] 40 mg PO Q6AM 04/20/19 Prednisone [Deltasone 5 mg Tablet] 5 mg PO QAM 04/20/19 Sertraline HCl [Zoloft 50 mg Tablet] 50 mg PO QAM 04/20/19 Tiotropium [place] [Spiriva Handihaler 5 Cap/Kit (18 Mcg/Cap)] 1 cap IH DAILY 04/20/19 Vit A/Vit C/Vit E/Zinc/Copper [Preservision Areds Softgel] 2 each PO QAM 04/20/19 Fexofenadine/Pseudoephedrine [Hyacinth-D 12 Hour Tablet] 1 each PO BID 04/21/19 Levothyroxine Sodium [Synthroid 0.075 mg Tablet] 0.075 mg PO QAM 30 Days #30 tablet 04/25/19 Acetaminophen [Tylenol 325 mg Tablet] 650 mg PO Q4HP PRN tablet 05/07/19 Diltiazem HCl [Cardizem Cd 120 mg Capsule] 120 mg PO DAILY #30 cap.sr.24h 05/07/19 Furosemide [Lasix 20 mg Tablet] 20 mg PO QAM #30 tablet 05/07/19 Metoprolol Succinate [Toprol Xl 25 mg Tab.sr] 25 mg PO Q12 #60 tab.sr.24h 05/07/19 Multivitamin [Tab-A-Deana (Multiple Vitamin) Tablet] 1 tab PO DAILY #90 tablet 05/07/19 History of Present Illiness History of Present Illness: Per H&P by Sony Olson NP C: PREETI ELIZABETH is a 78 year old female who is a [facility]. Patient was brought in here today to have swelling and seeping from her arms evaluated. Patient was found to be in A. fib with rapid ventricular response. Patient was recently taken to [facility] where she was hospitalized for 5 days for injuries after a fall. Patient states she is had a weight gain of 22 pounds over last several days. Patient's family is very concerned about bruising and discoloration swelling with seeping in her bilateral arms. Patient is supposed be taking Bumex but I cannot find it on her medication reconciliation form. Patient has had some wheezing today I suspect this is cardiac in nature. No treatment prior to arrival all active is aggravating factor. Hospital Course Hospital Course: The patient was admitted to [facility] on continuous cardiac telemetry. She had evidence of acute CHF exacerbation on exam with elevated proBNP, peripheral edema, increased hypoxia/work of breathing, and cardiomegaly with mild vascular congestion noted on chest x-ray. Echocardiogram September 2017 revealed LVEF of 65%. Her home dose of diltiazem, metoprolol, and atorvastatin were continued. She received a combination of Bumex and furosemide for diuresis with excellent urinary output resulting in 6 kg weight decrease and resolution of all symptoms. Her proBNP is decreased to 2900. Her creatinine has gradually trended up; today 1.9, approaching her baseline. Creatinine was noted to be lower at time of admission; likely due to fluid volume overload. She is educated on a low-sodium diet and fluid restriction to 1.5 L daily. She did meet with palliative care services and is interested in continued care. [facility] will continue to follow as an outpatient. She was noted to have a hemoglobin of 7.8 on admission with slight downtrend to 6.8. She is provided 1 unit PRBCs.Her hemoglobin is now stable at 8.2. She has no evidence of acute/ongoing bleeding at this time. Encouraged continued multivitamin and nutritional support. The patient's atrial fibrillation is rate controlled with diltiazem 120 mg daily and Toprol XL 25 mg every 12 hours. RVR was likely secondary to CHF exacerbation and acute respiratory failure; further compounded by acute on chronic anemia. She is not a candidate for chronic anticoagulation due to her anemia and fall risk. At time of discharge, patient is noted to be in stable condition, asymptomatic, returned to her baseline supplemental oxygen, speaking full sentences without dyspnea or orthopnea. She was noted to have expiratory wheezing today that resolved following nebulizer treatment. She is discharged to [facility] where she is an established resident. Recommend she follow-up with her primary care provider within 1 week. Continue medications as ordered. Continue a cardiac and fluid restricted diet. Weigh daily and report any weight gain of greater than 2 pounds overnight to PCP for further furosemide dosing/schedule adjustments. Return to emergency department as needed for concerning symptoms. Physical Exam Vital Signs: Temp Pulse Resp BP Pulse Ox 98.2 F 67 17 119/54 L 100 05/06/19 14:59 05/07/19 07:00 05/06/19 14:59 05/06/19 14:59 05/06/19 14:59 Intake & Output 05/06/19 05/07/19 05/08/19 06:59 06:59 06:59 Intake Total 460 960 Output Total 450 Balance 10 960 Weight 81.3 kg 82.9 kg General appearance: PRESENT: no acute distress, cooperative, obese, well-develop ed, well-nourished Head exam: PRESENT: atraumatic, normocephalic Eye exam: PRESENT: conjunctiva pink, EOMI, periorbital swelling - Trace: Significantly improved, PERRLA. ABSENT: scleral icterus Ear exam: PRESENT: normal external ear exam Mouth exam: PRESENT: moist, tongue midline Teeth exam: PRESENT: poor dentation Neck exam: ABSENT: carotid bruit, JVD, lymphadenopathy, thyromegaly Respiratory exam: PRESENT: symmetrical, unlabored, wheezes - Expiratory wheezing; resolved following neb treatment., other - Supplemental oxygen via nasal cannula at 2 L/min. ABSENT: rales, rhonchi Cardiovascular exam: PRESENT: irregular rhythm, +S1, +S2. ABSENT: diastolic murmur, rubs, systolic murmur Pulses: PRESENT: normal dorsalis pedis pul Vascular exam: PRESENT: normal capillary refill GI/Abdominal exam: PRESENT: normal bowel sounds, soft. ABSENT: distended, guarding, mass, organolmegaly, rebound, tenderness Rectal exam: PRESENT: deferred Extremities exam: PRESENT: full ROM, other - Trace edema right upper extremity, bilateral lower extremities.. ABSENT: calf tenderness, clubbing, pedal edema Neurological exam: PRESENT: alert, awake, oriented to person, oriented to place, oriented to time, oriented to situation, CN II-XII grossly intact. ABSENT: motor sensory deficit Psychiatric exam: PRESENT: appropriate affect, normal mood. ABSENT: homicidal ideation, suicidal ideation Skin exam: PRESENT: dry, intact, warm. ABSENT: cyanosis, rash Results Laboratory Results: WBC 13.0 10^3/uL (4.0-10.5) H 05/05/19 04:12 RBC 2.81 10^6/uL (3.72-5.28) L 05/05/19 04:12 Hgb 8.2 g/dL (12.0-15.5) L 05/05/19 04:12 Hct 24.9 % (36.0-47.0) L 05/05/19 04:12 MCV 88 fl (80-97) 05/05/19 04:12 MCH 29.0 pg (27.0-33.4) 05/05/19 04:12 MCHC 32.8 g/dL (32.0-36.0) 05/05/19 04:12 RDW 17.8 % (11.5-14.0) H 05/05/19 04:12 Plt Count 233 10^3/uL (150-450) 05/05/19 04:12 Lymph % (Auto) Not Reportable 05/04/19 16:15 [place] % (Auto) Not Reportable 05/04/19 16:15 Eos % (Auto) Not Reportable 05/04/19 16:15 Baso % (Auto) Not Reportable 05/04/19 16:15 Absolute Neuts (auto) Not Reportable 05/04/19 16:15 Absolute Lymphs (auto) Not Reportable 05/04/19 16:15 Absolute Monos (auto) Not Reportable 05/04/19 16:15 Absolute Eos (auto) Not Reportable 05/04/19 16:15 Absolute Basos (auto) Not Reportable 05/04/19 16:15 Total Counted 100 05/04/19 16:15 Seg Neutrophils % Not Reportable 05/04/19 16:15 Seg Neuts % (Manual) 83 % (42-78) H 05/04/19 16:15 Band Neutrophils % 5 % (3-5) 05/04/19 16:15 Lymphocytes % (Manual) 5 % (13-45) L 05/04/19 16:15 Monocytes % (Manual) 3 % (3-13) 05/04/19 16:15 Eosinophils % (Manual) 3 % (0-6) 05/04/19 16:15 Basophils % (Manual) 0 % (0-2) 05/04/19 16:15 Metamyelocytes % 1 % (0) H 05/04/19 16:15 Abs Neuts (Manual) 9.1 10^3/uL (1.7-8.2) H 05/04/19 16:15 Abs Lymphs (Manual) 0.5 10^3/uL (0.5-4.7) 05/04/19 16:15 Abs Monocytes (Manual) 0.3 10^3/uL (0.1-1.4) 05/04/19 16:15 Absolute Eos (Manual) 0.3 10^3/uL (0.0-0.6) 05/04/19 16:15 Abs Basophils (Manual) 0.0 10^3/uL (0.0-0.2) 05/04/19 16:15 Nucleated RBCs 2 /100 WBC (0) 05/04/19 16:15 Platelet Comment ADEQUATE 05/04/19 16:15 Polychromasia 1+ 05/04/19 16:15 Basophilic Stippling PRESENT 05/04/19 16:15 Anisocytosis 1+ 05/04/19 16:15 PT 28.6 SEC (11.4-15.4) H 05/01/19 16:25 INR 2.63 05/01/19 16:25 Sodium 139.3 mmol/L (137-145) 05/07/19 05:06 Potassium 4.4 mmol/L (3.6-5.0) 05/07/19 05:06 Chloride 104 mmol/L (98-107) 05/07/19 05:06 Carbon Dioxide 30 mmol/L (22-30) 05/07/19 05:06 Anion Gap 5 (5-19) 05/07/19 05:06 BUN 45 mg/dL (7-20) H 05/07/19 05:06 Creatinine 1.98 mg/dL (0.52-1.25) H 05/07/19 05:06 Est GFR ( Amer) 29 (>60) L 05/07/19 05:06 Est GFR (MDRD) Non-Af 24 (>60) L 05/07/19 05:06 Glucose 133 mg/dL (75-110) H 05/07/19 05:06 POC Glucose 161 mg/dL (70-110) H 05/07/19 12:08 Calcium 8.0 mg/dL (8.4-10.2) L 05/07/19 05:06 Phosphorus 4.6 mg/dL (2.5-4.5) H 05/02/19 05:11 Magnesium 1.9 mg/dL (1.6-2.3) 05/02/19 05:11 Total Bilirubin 0.7 mg/dL (0.2-1.3) 05/01/19 14:53 Direct Bilirubin 0.3 mg/dL (0.0-0.4) 05/01/19 14:53 Neonat Total Bilirubin Not Reportable 05/01/19 14:53 Neonat Direct Bilirubin Not Reportable 05/01/19 14:53 Neonat Indirect Bili Not Reportable 05/01/19 14:53 AST 29 U/L (14-36) 05/01/19 14:53 ALT 28 U/L (<35) 05/01/19 14:53 Alkaline Phosphatase 94 U/L (38-126) 05/01/19 14:53 Troponin I 0.038 ng/mL 05/02/19 01:15 NT-Pro-B Natriuret Pep 2990 pg/mL (<450) H 05/05/19 04:12 Total Protein 5.6 g/dL (6.3-8.2) L 05/01/19 14:53 Albumin 2.9 g/dL (3.5-5.0) L 05/01/19 14:53 TSH 73.20 uIU/mL (0.47-4.68) H 05/02/19 05:11 Free T4 0.35 ng/dL (0.78-2.19) L 05/02/19 05:11 Urine Color YELLOW 05/01/19 16:50 Urine Appearance CLEAR 05/01/19 16:50 Urine pH 6.0 (5.0-9.0) 05/01/19 16:50 Ur Specific [place] 1.014 05/01/19 16:50 Urine Protein 100 mg/dL (NEGATIVE) H 05/01/19 16:50 Urine Glucose (UA) NEGATIVE mg/dL (NEGATIVE) 05/01/19 16:50 Urine Ketones NEGATIVE mg/dL (NEGATIVE) 05/01/19 16:50 Urine Blood NEGATIVE (NEGATIVE) 05/01/19 16:50 Urine Nitrite NEGATIVE (NEGATIVE) 05/01/19 16:50 Urine Bilirubin NEGATIVE (NEGATIVE) 05/01/19 16:50 Urine Urobilinogen NEGATIVE mg/dL (<2.0) 05/01/19 16:50 Ur Leukocyte Esterase NEGATIVE (NEGATIVE) 05/01/19 16:50 Urine WBC (Auto) 1 /HPF 05/01/19 16:50 Urine RBC (Auto) 2 /HPF 05/01/19 16:50 Squamous Epi Cells Auto <1 /HPF 05/01/19 16:50 Urine Ascorbic Acid NEGATIVE (NEGATIVE) 05/01/19 16:50 Blood Type O NEGATIVE 05/04/19 07:44 Antibody Screen NEGATIVE 05/04/19 07:44 Crossmatch See Detail 05/04/19 07:44 05/01/19 05/01/19 05/02/19 14:53 18:45 01:15 Troponin I 0.031 0.032 0.038 NT-Pro-B Natriuret Pep 4330 H 05/02/19 05/05/19 05:11 04:12 Troponin I NT-Pro-B Natriuret Pep 4570 H 2990 H Impressions: Chest X-Ray 05/01/19 14:05 IMPRESSION: CARDIOMEGALY. MILD VASCULAR CONGESTION. Elbow X-Ray 05/01/19 14:05 IMPRESSION: Mild soft tissue swelling at the left elbow with a small joint effusion, a radiographic occult fracture cannot be excluded. Hand X-Ray 05/01/19 14:05 IMPRESSION: SOFT TISSUE SWELLING. NO FRACTURE. Humerus X-Ray 05/01/19 14:05 IMPRESSION: NEGATIVE STUDY OF THE RIGHT HUMERUS. NO RADIOGRAPHIC EVIDENCE OF ACUTE INJURY. Shoulder X-Ray 05/01/19 14:05 IMPRESSION: CHRONIC DEGENERATIVE CHANGES. NO RADIOGRAPHIC EVIDENCE OF ACUTE INJURY. Plan Health Concerns: Patient is discharged to [facility] where she is an established resident. Follow up with primary care provider within 1 week. Meet with Palliative Care team as was arranged. Take medications as prescribed. Eat a low sodium diet. Weigh daily and report any weight gain of >2 lbs to doctor. Return to the emergency department as needed for concerning symptoms. Stroke Is this a Stroke Patient?: No Acute Heart Failure - Is this a Heart Failure Patient?: Yes Documentation of LVEF assessment?: Yes LVEF < 40%?: No- if no continue to question #3 3. Anticoagulant therapy for permanect/persistent/paraoxysmal Afib or Aflutter: No, document contraindications Reason(s) not discharged on anticoagulant therapy for permanect/persistent/paraoxysmal Afib or Aflutter: Risk for bleeding
[2019-05-07] MEDS: ACETAMINOPHEN 325 MG TABLET PO PRN (13:49)
[2019-05-07 16:33] VITALS: BP 116/51
== END 2019-05-07 16:34 | DRG 291 ==
LOC: ER 13:40 → EH 18:24 → 3N 22:29 → 3S 05-02 23:00
PROVIDERS: ADMIT Internal Medicine; ATTEND Internal Medicine
PROC: 30233N1 Transfusion of Nonautologous Red Blood Cells into Peripheral Vein, Percutaneous Approach (ICD-10-PCS; principal; 2019-05-04)
DX: I13.0 Hypertensive heart and chronic kidney disease with heart failure and stage 1 through stage 4 chronic kidney disease, or unspecified chronic kidney disease (principal); I50.33 Acute on chronic diastolic (congestive) heart failure; J96.20 Acute and chronic respiratory failure, unspecified whether with hypoxia or hypercapnia; N17.9 Acute kidney failure, unspecified; I48.91 Unspecified atrial fibrillation; N18.9 Chronic kidney disease, unspecified; E11.22 Type 2 diabetes mellitus with diabetic chronic kidney disease; E87.5 Hyperkalemia; E03.9 Hypothyroidism, unspecified; D63.1 Anemia in chronic kidney disease; Z66 Do not resuscitate; Z79.82 Long term (current) use of aspirin; Z79.4 Long term (current) use of insulin; Z79.899 Other long term (current) drug therapy; S40.022A Contusion of left upper arm, initial encounter; S40.021A Contusion of right upper arm, initial encounter; W19.XXXA Unspecified fall, initial encounter; I25.10 Atherosclerotic heart disease of native coronary artery without angina pectoris; Z95.1 Presence of aortocoronary bypass graft; K21.9 Gastro-esophageal reflux disease without esophagitis; M19.90 Unspecified osteoarthritis, unspecified site; L40.9 Psoriasis, unspecified; F32.9 Major depressive disorder, single episode, unspecified; Z82.49 Family history of ischemic heart disease and other diseases of the circulatory system; Z88.0 Allergy status to penicillin; Z88.8 Allergy status to other drugs, medicaments and biological substances; Z79.890 Hormone replacement therapy
CPT/HCPCS: 36415; 36430; 71046; 80048; 80053; 81001; 82962; 83735; 83880; 84100; 84439; 84443; 84484; 85025; 85027; 85610; 86850; 86900; 86901; 86920; 90686; 93005; 93010; 94640; 94667; 94668; 94799; 99291; J1644; J1815; J1940; J3490; J7030; J7512; J7620; P9016

== ENCOUNTER 2019-05-15 12:59 | Inpatient (IN) | payer MEDICARE, MEDICAID ==
--- NOTE | 2019-05-15 14:30 | ER Document Report ---
ED Medical Screen (RME) - General Chief Complaint: Edema Stated Complaint: BLOODY STOOLS Time Seen by Provider: 05/15/19 14:27 Primary Care Provider: GERSON MAY MD [Primary Care Provider] - Follow up as needed Mode of Arrival: Medic Information source: Patient Notes: 78-year-old female presented to ED for complaint of swelling to her arms hands feet and legs. She states she is also having bloody stools. She does have multiple bruises all over her body. She states she is on Eliquis. She states she is on the Eliquis for her heart problems. She states she had a lot of bright red stool that started today. Patient is alert oriented respirations regular and unlabored speaking in full sentences. I have greeted and performed a rapid initial assessment of this patient. A comprehensive ED assessment and evaluation of the patient, analysis of test results and completion of medical decision making process will be conducted by an additional ED providers. TRAVEL OUTSIDE OF THE [place] IN LAST 30 DAYS: No - Related Data Allergies/Adverse Reactions: adhesive tape Allergy (Verified 05/15/19 14:02) methotrexate [Methotrexate] Allergy (Verified 04/20/19 16:05) Penicillins Allergy (Verified 04/21/19 11:29) Past Medical History - Past Medical History Cardiac Medical History: Reports: Hx Atrial Fibrillation, Hx Congestive Heart Failure, Hx Coronary Artery Disease - With 2 stents in the past, Hx Hypercholesterolemia, Hx Hypertension Pulmonary Medical History: Reports: Hx COPD, Hx Pneumonia, Hx Respiratory Failure Denies: Hx Tuberculosis Neurological Medical History: Denies: Hx Migraine, Hx Seizures Endocrine Medical History: Reports: Hx Diabetes Mellitus Type 2 Renal/ Medical History: Denies: Hx End Stage Renal Disease, Hx Peritoneal Dialysis GI Medical History: Reports: Hx Gastroesophageal Reflux Disease Musculoskeltal Medical History: Reports Hx Arthritis Skin Medical History: Reports Hx Psoriasis Psychiatric Medical History: Reports: Hx Depression Denies: Hx Bipolar Disorder Past Surgical History: Reports: Hx Cardiac Catheterization, Hx Herniorrhaphy, Hx Hysterectomy. Denies: Hx Pacemaker - Immunizations Immunizations up to date: Yes Hx Diphtheria, Pertussis, Tetanus Vaccination: Yes Physical Exam - Vital signs Vitals: Resp BP 0 L 170/98 H 05/15/19 13:21 05/15/19 13:21 Course - Vital Signs Vital signs: Temp Pulse Resp BP Pulse Ox 113 H 24 H 170/98 H 98 10/19/19 13:41 05/15/19 14:00 05/15/19 13:41 05/15/19 14:00 - Laboratory Laboratory results interpreted by me: 05/15/19 13:49 POC Glucose 130 H Doctor's Discharge - Discharge Referrals: GERSON MAY MD [Primary Care Provider] - Follow up as needed
[2019-05-15 14:58] LABS: ABSOLUTE BASOPHILS # (AUTO) 0.1 10^3/uL (0.0-0.2); ABSOLUTE EOSINOPHILS # (AUTO) 0.1 10^3/uL (0.0-0.6); ABSOLUTE LYMPHOCYTES (AUTO) 0.8 10^3/uL (0.5-4.7); ABSOLUTE MONOCYTES (AUTO) 0.8 10^3/uL (0.1-1.4); ABSOLUTE NEUT (AUTO) 7.6 10^3/uL (1.7-8.2); BASOPHILS % (AUTO) 0.8 % (0-2); HEMATOCRIT 24.3 % (36.0-47.0); LYMPHOCYTES % (AUTO) 8.6 % (13-45); MEAN CORPUSCULAR HEMOGLOBIN 28.6 pg (27.0-33.4); MEAN CORPUSCULAR HGB CONC 31.8 g/dL (32.0-36.0); MEAN CORPUSCULAR VOLUME 90 fl (80-97); MONOCYTES % (AUTO) 8.5 % (3-13); PLATELET COUNT 304 10^3/uL (150-450); RED CELL DISTRIBUTION WIDTH 19.5 % (11.5-14.0); SEGMENTED NEUTROPHILS % (AUTO) 81.1 % (42-78); TOTAL CELLS COUNTED % (AUTO) 100 %; WHITE BLOOD COUNT 9.3 10^3/uL (4.0-10.5)
[2019-05-15 14:59] LABS: ALBUMIN 3.3 g/dL (3.5-5.0); ALKALINE PHOSPHATASE 117 U/L (38-126); ANION GAP 7 (5-19); ASPARTATE AMINO TRANSFERASE 28 U/L (14-36); BILIRUBIN,DIRECT 0.2 mg/dL (0.0-0.4); BILIRUBIN,TOTAL 0.7 mg/dL (0.2-1.3); BLOOD UREA NITROGEN 43 mg/dL (7-20); CALCIUM 9.2 mg/dL (8.4-10.2); CARBON DIOXIDE 30 mmol/L (22-30); CHLORIDE 107 mmol/L (98-107); GLUCOSE 120 mg/dL (75-110); POTASSIUM 4.4 mmol/L (3.6-5.0); TOTAL PROTEIN 6.1 g/dL (6.3-8.2)
[2019-05-15 15:00] LABS: HEMOGLOBIN 7.7 g/dL (12.0-15.5)
--- NOTE | 2019-05-15 15:11 | ER Document Report ---
ED General - General Chief Complaint: Edema Stated Complaint: BLOODY STOOLS Time Seen by Provider: 05/15/19 14:27 Primary Care Provider: GERSON MAY MD [Primary Care Provider] - Follow up as needed Mode of Arrival: Medic TRAVEL OUTSIDE OF THE [place] IN LAST 30 DAYS: No - Related Data Allergies/Adverse Reactions: adhesive tape Allergy (Verified 05/15/19 14:02) methotrexate [Methotrexate] Allergy (Verified 04/20/19 16:05) Penicillins Allergy (Verified 04/21/19 11:29) Past Medical History - General Information source: Patient - Social History Smoking Status: Unknown if Ever Smoked Family History: Reviewed & Not Pertinent, CAD Patient has suicidal ideation: No Patient has homicidal ideation: No - Past Medical History Cardiac Medical History: Reports: Hx Atrial Fibrillation, Hx Congestive Heart Failure, Hx Coronary Artery Disease - With 2 stents in the past, Hx Hypercholesterolemia, Hx Hypertension Pulmonary Medical History: Reports: Hx COPD, Hx Pneumonia, Hx Respiratory Failure Denies: Hx Tuberculosis Neurological Medical History: Denies: Hx Migraine, Hx Seizures Endocrine Medical History: Reports: Hx Diabetes Mellitus Type 2 Renal/ Medical History: Denies: Hx End Stage Renal Disease, Hx Peritoneal Dialysis GI Medical History: Reports: Hx Gastroesophageal Reflux Disease Musculoskeletal Medical History: Reports Hx Arthritis Skin Medical History: Reports Hx Psoriasis Psychiatric Medical History: Reports: Hx Depression Denies: Hx Bipolar Disorder Past Surgical History: Reports: Hx Cardiac Catheterization, Hx Herniorrhaphy, Hx Hysterectomy. Denies: Hx Pacemaker - Immunizations Immunizations up to date: Yes Hx Diphtheria, Pertussis, Tetanus Vaccination: Yes Physical Exam - Vital signs Vitals: BP 170/98 H 05/15/19 13:21 Course - Re-evaluation Re-evalutation: 05/15/19 15:10 EKG shows atrial fibrillation with a heart rate of 111, poor R wave progression, no obvious ST elevation or depression. - Vital Signs Vital signs: Temp Pulse Resp BP Pulse Ox 113 H 25 H 142/92 H 98 05/15/19 13:41 05/15/19 15:01 05/15/19 15:01 05/15/19 14:00 - Laboratory Result Diagrams: 05/15/19 13:45 05/15/19 13:45 Laboratory results interpreted by me: 05/15/19 05/15/19 05/15/19 13:45 13:45 13:49 RBC 2.70 L Hgb 7.7 L Hct 24.3 L MCHC 31.8 L RDW 19.5 H Lymph % (Auto) 8.6 L Seg Neutrophils % 81.1 H BUN 43 H Creatinine 1.69 H Est GFR ( Amer) 35 L Est GFR (MDRD) Non-Af 29 L Glucose 120 H POC Glucose 130 H Total Protein 6.1 L Albumin 3.3 L Discharge - Discharge Referrals: GERSON MAY MD [Primary Care Provider] - Follow up as needed
--- NOTE | 2019-05-15 16:10 | ER Document Report ---
ED General - General Chief Complaint: Edema Stated Complaint: BLOODY STOOLS Time Seen by Provider: 05/15/19 14:27 Primary Care Provider: GERSON MAY MD [Primary Care Provider] - Follow up as needed Mode of Arrival: Medic Information source: Patient Notes: HPI: 78-year-old female who presents from [facility] secondary to some increased lower extremity swelling as well as some blood in stool today. Patient has a history of both. Patient was recently admitted around May 04 secondary to anasarca with weight gain. She was extremely diuresed at that nancy e. Her hemoglobin did at that time dropped to 6.8 and she was transfused. She supposedly had no GI bleeding at that time and was discharged home. Patient presents today stating that she had some blood in her stool today. She denies any abdominal pain. Patient states she felt that her heart was faster as well. She does state that the arm swelling bilaterally has improved but she started again to have a little bit of lower extremity swelling. No calf pain. Patient denies any chest pain or shortness of breath above baseline. ROS: See HPI All other review of systems reviewed and otherwise negative Reviewed vital signs and nursing note as charted by RN. PHYSICAL EXAM: CONSTITUTIONAL: Alert and oriented and responds appropriately to questions. Well-appearing; well-nourished HEAD: Normocephalic; atraumatic EYES: PERRL; Conjunctivae clear, sclerae non-icteric ENT: Normal nose; nasal cannula in place; no rhinorrhea; moist mucous membranes; pharynx without lesions noted NECK: Supple without meningismus; non-tender; no cervical lymphadenopathy, no masses CARD: Tachycardic and irregular; no murmurs; symmetric distal pulses RESP: Normal chest excursion without splinting or tachypnea; breath sounds clear and equal bilaterally; minimal rales to bilateral bases ABD/GI: Normal bowel sounds; non-distended; soft, non-tender; no palpable organomegaly or masses BACK: The back appears normal and is non-tender to palpation EXT: Normal ROM in all joints; non-tender to palpation; 2+ pitting edema to bilateral lower extremities, left greater than right which is baseline for the patient SKIN: No acute lesions noted NEURO: CN 2-12 intact; 5/5 bilateral upper and lower extremity strength with sensation intact to light touch PSYCH: The patient's mood and manner are appropriate. Grooming and personal hygiene are appropriate. TRAVEL OUTSIDE OF THE [place] IN LAST 30 DAYS: No - Related Data Allergies/Adverse Reactions: adhesive tape Allergy (Verified 05/15/19 14:02) methotrexate [Methotrexate] Allergy (Verified 04/20/19 16:05) Penicillins Allergy (Verified 04/21/19 11:29) Past Medical History - General Information source: Patient - Social History Smoking Status: Unknown if Ever Smoked Family History: Reviewed & Not Pertinent, CAD Patient has suicidal ideation: No Patient has homicidal ideation: No - Past Medical History Cardiac Medical History: Reports: Hx Atrial Fibrillation, Hx Congestive Heart Failure, Hx Coronary Artery Disease - With 2 stents in the past, Hx Hyper cholesterolemia, Hx Hypertension Pulmonary Medical History: Reports: Hx COPD, Hx Pneumonia, Hx Respiratory Failure Denies: Hx Tuberculosis Neurological Medical History: Denies: Hx Migraine, Hx Seizures Endocrine Medical History: Reports: Hx Diabetes Mellitus Type 2 Renal/ Medical History: Denies: Hx End Stage Renal Disease, Hx Peritoneal Dialysis GI Medical History: Reports: Hx Gastroesophageal Reflux Disease Musculoskeletal Medical History: Reports Hx Arthritis Skin Medical History: Reports Hx Psoriasis Psychiatric Medical History: Reports: Hx Depression Denies: Hx Bipolar Disorder Past Surgical History: Reports: Hx Cardiac Catheterization, Hx Herniorrhaphy, Hx Hysterectomy. Denies: Hx Pacemaker - Immunizations Immunizations up to date: Yes Hx Diphtheria, Pertussis, Tetanus Vaccination: Yes Physical Exam - Vital signs Vitals: BP 170/98 H 05/15/19 13:21 Course - Re-evaluation Re-evalutation: Given the above history and physical, we will obtain basic labs, coagulation profile, perform a Hemoccult exam, and reassess. Patient currently denies any pain. EKG as recorded showing what appears to be atrial fibrillation with rapid ventricular response. EKG is a heart rate of 111, atrial fibrillation with rapid ventricular response, poor R wave progression. 05/15/19 16:06 Given the above history and physical, with Hemoccult positive stool, with atrial fibrillation with rapid ventricular response, with hemoglobin as recorded, I have called to see if we have GI psychologist [employer] personnel today or tomorrow. I have called and spoken to the general surgeon Dr. White who states he can do a colonoscopy if needed. Patient states that she is on Eliquis but it is not on her current medication list. I will start the patient on a small diltiazem ip and admit the patient. Patient is full code. - Vital Signs Vital signs: Temp Pulse Resp BP Pulse Ox 113 H 25 H 142/92 H 98 05/15/19 13:41 05/15/19 15:01 05/15/19 15:01 05/15/19 14:00 - Laboratory Result Diagrams: 05/15/19 13:45 05/15/19 13:45 Laboratory results interpreted by me: 05/15/19 05/15/19 05/15/19 13:45 13:45 13:49 RBC 2.70 L Hgb 7.7 L Hct 24.3 L MCHC 31.8 L RDW 19.5 H Lymph % (Auto) 8.6 L Seg Neutrophils % 81.1 H BUN 43 H Creatinine 1.69 H Est GFR ( Amer) 35 L Est GFR (MDRD) Non-Af 29 L Glucose 120 H POC Glucose 130 H Total Protein 6.1 L Albumin 3.3 L Critical Care Note - Critical Care Note Total time excluding time spent on procedures (mins): 35 Discharge - Discharge Clinical Impression: Atrial fibrillation with rapid ventricular response GI bleed Qualifiers: GI bleed type/associated pathology: unspecified gastrointestinal hemorrhage type Qualified Code(s): K92.2 - Gastrointestinal hemorrhage, unspecified Condition: Fair Disposition: ADMITTED INPATIENT Admitting Provider: Christiano (Hospitalist) Unit Admitted: IMCU Referrals: GERSON MAY MD [Primary Care Provider] - Follow up as needed
[2019-05-15] MEDS ORDERED: FUROSEMIDE INJ/PF 40 MG/4 ML SDV IV ONE (16:14)
[2019-05-15] MEDS: DILTIAZEM HCL/D5W 125 MG/125 ML RTUINJ IV PRN (16:41)
--- NOTE | 2019-05-15 16:44 | RADIOLOGY REPORT (SQ) ---
EXAM DESCRIPTION: CHEST SINGLE VIEW COMPLETED DATE/TIME: 05/15/2019 4:36 pm REASON FOR STUDY: 2; edema COMPARISON: 05/01/2019 EXAM PARAMETERS: NUMBER OF VIEWS: One view. TECHNIQUE: Single frontal radiographic view of the chest acquired. RADIATION DOSE: NA LIMITATIONS: Suboptimal patient positioning. FINDINGS: LUNGS AND PLEURA: No opacities, masses or pneumothorax. No pleural effusion. MEDIASTINUM AND HILAR STRUCTURES: Grossly stable. HEART AND VASCULAR STRUCTURES: Persistent cardiomegaly with mild central vascular congestion. BONES: No acute findings. HARDWARE: None in the chest. OTHER: No other significant finding. IMPRESSION: Stable radiographic appearance of the chest demonstrating cardiomegaly with mild vascula r congestion. TECHNICAL DOCUMENTATION: JOB ID: [id number] [email or web address]- All Rights Reserved Reading location - IP/workstation name: [email or web address]
[2019-05-15 17:24] LABS: INTERNATIONAL RATION (INR) 1.16; PROTHROMBIN TIME 14.8 SEC (11.4-15.4)
[2019-05-15] MEDS ORDERED: BENZONATATE 100 MG CAPSULE PO PRN (17:28)
[2019-05-15] MEDS ORDERED: MAG HYDROX/AL HYDROX/SIMETH SUSP 30 ML UDCUP PO PRN (17:28)
[2019-05-15] MEDS ORDERED: INSULIN LISPRO 100 UNIT/ML 3 ML VIAL SUBCUT SCH (17:30)
[2019-05-15] MEDS ORDERED: INSULIN GLARGINE,HUM.REC.ANLOG 1,000 UNIT/10 ML VIAL (PYX) SUBCUT PRN (17:45)
--- NOTE | 2019-05-15 17:50 | PDOC H&P ---
History of Present Illness Admission Date/PCP: 05/15/19 16:34 GERSON MAY History of Present Illness: PREETI ELIZABETH is a 78 year old female with a long and extensive list of medical problems including insulin-dependent diabetes mellitus, chronic hypoxemic respiratory failure, atrial fibrillation, mild aortic stenosis, mitral regurgitation, and pulmonary hypertension who presented today from [facility] where she is a long-term resident, with bright red blood per rectum. She had a colonoscopy on November 23, 2018 which showed one 4 mm polyp that was removed, extensive diverticulosis, extensive external hemorrhoids, no tumor or obvious source of current bleeding at that time. She said that she had been not feeling terribly abnormal and had no abdominal pain her nurse saw that she had some blood per bowel movement so they brought her over here. Her hemoglobin, which is always on the low side, was in her usual range. She was recently discharged from here a couple of weeks ago and at that time it was determined that she should not be on any anticoagulants for her atrial fibrillation due to her high fall risk and high bleeding risk. When she got here, her atrial fibrillation was noted to be uncontrolled, and she had edema in all of her extremities. She had pulmonary vascular congestion on her chest x-ray. She was started on a Cardizem drip in the ER. She had a dose of Lasix ordered. She is being admitted for further evaluation and management. This will be her eighth hospitalization this calendar year, and her 11th visit to the emergency room total for this year. She is a DNR. Past Medical History Cardiac Medical History: Reports: Atrial Fibrillation, Congestive Heart Failure, Coronary Artery Disease - With 2 stents in the past, Hyperlipidema, Hypertension Pulmonary Medical History: Reports: Chronic Obstructive Pulmonary Disease (COPD), Pneumonia, Respiratory Failure Denies: Tuberculosis Neurological Medical History: Denies: Migraine, Seizures Endocrine Medical History: Reports: Diabetes Mellitus Type 2 Renal/ Medical History: Denies: End Stage Renal Disease GI Medical History: Reports: Gastroesophageal Reflux Disease Musculoskeltal Medical History: Reports: Arthritis Skin Medical History: Reports: Psoriasis Psychiatric Medical History: Reports: Depression Denies: Bipolar Disorder Hematology: Reports: Anemia Denies: Bleeding Tendencies Past Surgical History Past Surgical History: Reports: Cardiac Catheterization, Herniorrhaphy, Hysterectomy Denies: Pacemaker Social History Smoking Status: Unknown if Ever Smoked Frequency of Alcohol Use: None Hx Recreational Drug Use: No Drugs: None Hx Prescription Drug Abuse: No Family History Family History: Reviewed & Not Pertinent, CAD Parental Family History Reviewed: No - Unreliable historian Children Family History Reviewed: Unknown Sibling(s) Family History Reviewed.: Unknown Medication/Allergy Home Medications: Apremilast [Otezla] 30 mg PO Q12 04/20/19 Ascorbic Acid [Vitamin C 500 mg Tablet] 500 mg PO DAILY 04/20/19 Aspirin [Ecotrin 81 mg EC Tablet] 81 mg PO DAILY 04/20/19 Atorvastatin Calcium [Lipitor 40 mg Tablet] 40 mg PO QHS 04/20/19 Benzonatate [Tessalon Perle 100 mg Capsule] 200 mg PO Q8HP PRN 04/20/19 Calcium Carbonate/Vitamin D3 [Calcium 600-Vit D3 400 Tablet] 2 each PO DAILY 04/20/19 Cholecalciferol (Vitamin D3) [Vitamin D3 1000 Unit Tablet] 1,000 unit PO DAILY 04/20/19 Cyclosporine 0.05% Oph Emulsio [Restasis 0.05% Oph Emulsion Pf 0.4 ml] 1 drop OU DAILY 04/20/19 Ferrous Sulfate [Feosol 325 mg Tablet] 325 mg PO QAM 04/20/19 Fluticasone/Umeclidin/Vilanter [Trelegy 100-62.5-25 Mcg Ellipta 14 Dose/Dpi] 1 puff IH DAILY 04/20/19 Insulin Glargine,Hum.rec.anlog [Basaglar Kwikpen U-100] 20 unit SQ QHS 04/20/19 Insulin Lispro [Humalog Insulin (Lispro) 100 unit/mL] See Protocol SUBCUT .SLD SCALE 04/20/19 Lidocaine [Lidoderm 5% (700 mg) Transdermal Patch] 1 patch TP QAM 04/20/19 Mag Hydrox/Al Hydrox/Simeth [Maalox Plus Susp 30 Udcup] 20 ml PO DAILYP PRN 04/20/19 Melatonin [Melatonin 5 mg Tablet] 5 mg PO QHS 04/20/19 Mirtazapine 7.5 mg PO QHS 04/20/19 Pantoprazole Sodium [Protonix [address] Tablet] 40 mg PO Q6AM 04/20/19 Prednisone [Deltasone 5 mg Tablet] 5 mg PO QAM 04/20/19 Sertraline HCl [Zoloft 50 mg Tablet] 50 mg PO QAM 04/20/19 Tiotropium [place] [Spiriva Handihaler 5 Cap/Kit (18 Mcg/Cap)] 1 cap IH DAILY 04/20/19 Vit A/Vit C/Vit E/Zinc/Copper [Preservision Areds Softgel] 2 each PO QAM 04/20/19 Fexofenadine/Pseudoephedrine [Hyacinth-D 12 Hour Tablet] 1 each PO BID 04/21/19 Levothyroxine Sodium [Synthroid 0.075 mg Tablet] 0.075 mg PO QAM 30 Days #30 tablet 04/25/19 Acetaminophen [Tylenol 325 mg Tablet] 650 mg PO Q4HP PRN tablet 05/07/19 Diltiazem HCl [Cardizem Cd 120 mg Capsule] 120 mg PO DAILY #30 cap.sr.24h 05/07 Furosemide [Lasix 20 mg Tablet] 20 mg PO QAM #30 tablet 05/07/19 Metoprolol Succinate [Toprol Xl 25 mg Tab.sr] 25 mg PO Q12 #60 tab.sr.24h 05/07/19 Multivitamin [Tab-A-Deana (Multiple Vitamin) Tablet] 1 tab PO DAILY #90 tablet 05/07/19 Allergies/Adverse Reactions: adhesive tape Allergy (Verified 05/15/19 14:02) methotrexate [Methotrexate] Allergy (Verified 04/20/19 16:05) Penicillins Allergy (Verified 04/21/19 11:29) Review of Systems All systems: reviewed and no additional remarkable complaints except as stated - All systems were reviewed and were negative except as noted in the HPI, but I am not sure how reliable of a historian she is Physical Exam Vital Signs: Temp Pulse Resp BP Pulse Ox 113 H 19 152/87 H 100 05/15/19 13:41 05/15/19 17:16 05/15/19 17:16 05/15/19 17:16 Intake & Output 05/14/19 05/15/19 05/16/19 06:59 06:59 06:59 Intake Total 3 Balance 3 Weight 85 kg General appearance: PRESENT: no acute distress, cooperative, disheveled, morbidly obese, other - Her voice seem to be very weak whenever she talked Head exam: PRESENT: atraumatic, normocephalic Eye exam: PRESENT: EOMI, PERRLA. ABSENT: conjunctival injection, nystagmus, scleral icterus Ear exam: PRESENT: normal external ear exam Mouth exam: PRESENT: moist, neck supple Teeth exam: PRESENT: poor dentation Throat exam: ABSENT: post pharyngeal erythema Neck exam: PRESENT: full ROM. ABSENT: carotid bruit, JVD - But difficult to tell due to her body habitus, lymphadenopathy, meningismus, tenderness, thyromegaly Respiratory exam: PRESENT: decreased breath sounds, rhonchi, symmetrical, tachy pnea, unlabored. ABSENT: accessory muscle use, chest wall tenderness, crackles, prolonged expiratory phas, wheezes Cardiovascular exam: PRESENT: irregular rhythm, systolic murmur - 3 out of 6 systolic murmur Pulses: PRESENT: normal carotid pulses Vascular exam: PRESENT: normal capillary refill GI/Abdominal exam: PRESENT: normal bowel sounds, soft. ABSENT: ascites, distended, guarding, rebound, tenderness Rectal exam: PRESENT: heme (+) stool Extremities exam: PRESENT: pedal edema, +2 edema - Upper and lower extremities. ABSENT: clubbing Musculoskeletal exam: PRESENT: normal inspection. ABSENT: deformity Neurological exam: PRESENT: alert, awake, oriented to person, oriented to place, oriented to situation, CN II-XII grossly intact, motor sensory deficit - Generalized extremity weakness Psychiatric exam: PRESENT: appropriate affect, normal mood Skin exam: PRESENT: dry, skin tears, warm, other - Skin overall was very thin and she had multiple areas of macules from bruising Results Laboratory Results: 05/15/19 13:45 05/15/19 13:45 05/15/19 05/15/19 05/15/19 13:45 13:45 15:23 WBC 9.3 RBC 2.70 L Hgb 7.7 L Hct 24.3 L MCV 90 MCH 28.6 MCHC 31.8 L RDW 19.5 H Plt Count 304 Seg Neutrophils % 81.1 H Sodium 143.9 Potassium 4.4 Chloride 107 Carbon Dioxide 30 Anion Gap 7 BUN 43 H Creatinine 1.69 H Est GFR ( Amer) 35 L Glucose 120 H Calcium 9.2 Total Bilirubin 0.7 AST 28 Alkaline Phosphatase 117 Total Protein 6.1 L Albumin 3.3 L Blood Type Cancelled Antibody Screen Cancelled 05/15/19 15:50 WBC RBC Hgb Hct MCV MCH MCHC RDW Plt Count Seg Neutrophils % Sodium Potassium Chloride Carbon Dioxide Anion Gap BUN Creatinine Est GFR ( Amer) Glucose Calcium Total Bilirubin AST Alkaline Phosphatase Total Protein Albumin Blood Type O NEGATIVE Antibody Screen NEGATIVE Impressions: Chest X-Ray 05/15/19 16:14 IMPRESSION: Stable radiographic appearance of the chest demonstrating cardiomegaly with mild vascular congestion. Assessment and Plan - Diagnosis (1) Atrial fibrillation with RVR Is this a current diagnosis for this admission?: Yes Plan: Her medication list from [facility] says that she is on the things that she was sent home on from her last hospitalization. This includes her Cardizem and her Toprol. She is currently on a Cardizem drip. I am going to increase the doses of her Toprol and her Cardizem. After she gets her evening doses, will cut the Cardizem drip off 1 hour later. She is too much of a bleeding risk and to high of a fall risk for chronic anticoagulation. (2) GI bleed Qualifiers: GI bleed type/associated pathology: unspecified gastrointestinal hemorrhage type Qualified Code(s): K92.2 - Gastrointestinal hemorrhage, unspecified Is this a current diagnosis for this admission?: Yes Plan: I think this is actually the least of her problems right now. I suspect with her poor tissue quality and her extensive diverticulosis and extensive hemorrhoids that she will likely have intermittent episodes of some bright red blood per rectum. Her hemoglobin is steady in his usual range. We will run a trend overnight to see if she develops any more blood loss. If she does show more signs of blood loss, will consult surgery for colonoscopy. (3) Acute on chronic diastolic CHF (congestive heart failure) Is this a current diagnosis for this admission?: Yes Plan: She appears volume overloaded to me. I do not know if she has had a fluid restriction after she left the hospital. I believe the discharge summary said she was to be on a 1500 mL daily fluid restriction. This was probably brought on by her uncontrolled atrial fibrillation combined with her severe pulmonary hypertension and her aortic stenosis. We will give her some IV Lasix and monitor her creatinine and electrolytes and urine output. (4) Anemia Qualifiers: Anemia type: due to chronic kidney disease Chronic kidney disease stage: stage 3 (moderate) Qualified Code(s): N18.3 - Chronic kidney disease, stage 3 (moderate); D63.1 - Anemia in chronic kidney disease Is this a current diagnosis for this admission?: Yes Plan: Even with little bit of blood she lost in her bowel movement earlier, her creatinine is still in her usual range. We will continue her iron supplement. (5) Chronic kidney disease, stage 3 Is this a current diagnosis for this admission?: Yes Plan: Currently stable in his usual range, will monitor her creatinine as we diurese her and fluid restrict her. (6) Type 2 diabetes mellitus Qualifiers: Diabetes mellitus buttermaker insulin use: with snf use Diabetes mellitus complication status: with kidney complications Diabetes mellitus complication detail: with chronic kidney disease Chronic kidney disease stage: stage 3 (moderate) Qualified Code(s): E11.22 - Type 2 diabetes mellitus with diabetic chronic kidney disease; N18.3 - Chronic kidney disease, stage 3 (moderate); Z79.4 - buttermaker (current) use of insulin Is this a current diagnosis for this admission?: Yes Plan: We will continue her home medications including her Lantus and sliding scale. We will put her on a diabetic diet. - Time Time Spent with patient: 35 or more minutes - Inpatient Certification Based on my medical assessment, after consideration of the patient's comorbidities, presenting symptoms, or acuity I expect that the services needed warrant INPATIENT care.: Yes I certify that my determination is in accordance with my understanding of Medicare's requirements for reasonable and necessary INPATIENT services [42 CFR 412.3e].: Yes Medical Necessity: Significant Comorbidiites Make Outpatient Treatment Too Risky, Need Close Monitoring Due to Risk of Patient Decompensation, Need For Continuous Telemetry Monitoring
[2019-05-15 18:31] LABS: APPEARANCE,URINE CLEAR; BILIRUBIN,URINE NEGATIVE (NEGATIVE); COLOR,URINE STRAW; GLUCOSE, URINE NEGATIVE (NEGATIVE); KETONES,URINE NEGATIVE (NEGATIVE); PROTEIN,URINE 30 mg/dL (NEGATIVE); URINE SPECIFIC GRAVITY 1.008; UROBILINOGEN,URINE NEGATIVE mg/dL (<2.0)
[2019-05-15] MEDS ORDERED: INSULIN GLARGINE,HUM.REC.ANLOG 1,000 UNIT/10 ML VIAL (PYX) SUBCUT ONE (21:50)
[2019-05-15] MEDS: INSULIN GLARGINE,HUM.REC.ANLOG 1,000 UNIT/10 ML VIAL SUBCUT SCH (21:56)
[2019-05-15] MEDS: MELATONIN 5 MG TABLET PO SCH (21:56)
[2019-05-15] MEDS: MIRTAZAPINE 15 MG TABLET PO SCH (21:57)
[2019-05-15] MEDS: DILTIAZEM HCL 180 MG CAPSULE.CR PO SCH (21:57)
[2019-05-15] MEDS: ATORVASTATIN CALCIUM 40 MG TABLET PO SCH (21:57)
[2019-05-15] MEDS: METOPROLOL SUCCINATE 50 MG TAB.SR.24H PO SCH (21:57)
[2019-05-15] MEDS: FUROSEMIDE INJ/PF 20 MG/2 ML SDV IV SCH (21:57)
[2019-05-15 21:58] LABS: HEMATOCRIT 23.8 % (36.0-47.0); MEAN CORPUSCULAR HEMOGLOBIN 29.2 pg (27.0-33.4); MEAN CORPUSCULAR VOLUME 91 fl (80-97); PLATELET COUNT 294 10^3/uL (150-450); RED BLOOD COUNT 2.61 10^6/uL (3.72-5.28); RED CELL DISTRIBUTION WIDTH 19.9 % (11.5-14.0); WHITE BLOOD COUNT 9.7 10^3/uL (4.0-10.5)
[2019-05-15 22:00] LABS: HEMOGLOBIN 7.6 g/dL (12.0-15.5)
[2019-05-15] MEDS ORDERED: (PENDING PHARMACY ID) (Apremilast [Otezla] 30 MG) PO SCH ×2 (22:00)
[2019-05-15] MEDS: INSULIN LISPRO 100 UNIT/ML 3 ML VIAL SUBCUT SCH (22:03)
--- NOTE | 2019-05-16 00:27 | EKG REPORT ---
SEVERITY:- ABNORMAL ECG - ATRIAL FIBRILLATION PROBABLE INFERIOR INFARCT, AGE INDETERMINATE ANTERIOR INFARCT, OLD : Confirmed by: Cathryn Lopez 16-May-2019 00:26:27
[2019-05-16] MEDS: DILTIAZEM HCL/D5W 125 MG/125 ML RTUINJ IV PRN (01:31)
[2019-05-16 04:52] LABS: ANION GAP 10 (5-19); BLOOD UREA NITROGEN 47 mg/dL (7-20); CALCIUM 8.8 mg/dL (8.4-10.2); CARBON DIOXIDE 29 mmol/L (22-30); CHLORIDE 107 mmol/L (98-107); GLUCOSE 98 mg/dL (75-110); POTASSIUM 4.5 mmol/L (3.6-5.0)
[2019-05-16] MEDS: PANTOPRAZOLE SODIUM 40 MG TABLET.DR PO SCH (05:20)
[2019-05-16 07:46] LABS: HEMATOCRIT 25.1 % (36.0-47.0); HEMOGLOBIN 8.1 g/dL (12.0-15.5); MEAN CORPUSCULAR HEMOGLOBIN 29.4 pg (27.0-33.4); MEAN CORPUSCULAR HGB CONC 32.1 g/dL (32.0-36.0); MEAN CORPUSCULAR VOLUME 92 fl (80-97); PLATELET COUNT 295 10^3/uL (150-450); RED BLOOD COUNT 2.73 10^6/uL (3.72-5.28); RED CELL DISTRIBUTION WIDTH 20.5 % (11.5-14.0); WHITE BLOOD COUNT 8.4 10^3/uL (4.0-10.5)
[2019-05-16] MEDS ORDERED: VIT A PO SCH (08:00)
[2019-05-16] MEDS ORDERED: [UNRECOGNIZED DRUG - OTHER] PO SCH (08:00)
[2019-05-16] MEDS ORDERED: VIT C PO SCH (08:00)
[2019-05-16] MEDS ORDERED: VIT E PO SCH (08:00)
[2019-05-16] MEDS ORDERED: ZINC PO SCH (08:00)
[2019-05-16] MEDS ORDERED: LIDOCAINE 5% (700 MG) TRANSDERMAL ADH..PATCH TP SCH (08:00)
[2019-05-16] MEDS ORDERED: COPPER PO SCH (08:00)
[2019-05-16] MEDS: INSULIN LISPRO 100 UNIT/ML 3 ML VIAL SUBCUT SCH ×4 (08:13→22:33)
[2019-05-16] MEDS: FERROUS SULFATE 325 MG TABLET PO SCH (08:26)
[2019-05-16] MEDS: PREDNISONE 5 MG TABLET PO SCH (08:26)
[2019-05-16] MEDS: LEVOTHYROXINE SODIUM 0.075 MG TABLET PO SCH (08:26)
[2019-05-16] MEDS: SERTRALINE HCL 50 MG TABLET PO SCH (08:26)
[2019-05-16] MEDS: METOPROLOL SUCCINATE 50 MG TAB.SR.24H PO SCH ×2 (10:04→22:33)
[2019-05-16] MEDS: MULTIVITAMIN TABLET PO SCH (10:04)
[2019-05-16] MEDS: ASPIRIN 81 MG TABLET, ENT COATED PO SCH (10:04)
[2019-05-16] MEDS: FUROSEMIDE INJ/PF 20 MG/2 ML SDV IV SCH ×2 (10:05→22:34)
[2019-05-16] MEDS: DILTIAZEM HCL 180 MG CAPSULE.CR PO SCH ×2 (10:05→22:33)
[2019-05-16] MEDS: CHOLECALCIFEROL (D3) 1,000 UNIT (25 MCG) TABLET PO SCH (10:05)
[2019-05-16] MEDS: ASCORBIC ACID 500 MG TABLET PO SCH (10:05)
[2019-05-16] MEDS: CALCIUM CARBONATE 250 MG/VITAMIN D3 125 UNIT TABLET PO SCH (10:05)
[2019-05-16] MEDS: CYCLOSPORINE 0.05% OPH EMULSIO 0.4 ML DROPERETTE OU SCH (10:12)
[2019-05-16] MEDS: LIDOCAINE 5% (700 MG) TRANSDERMAL ADH..PATCH TP SCH (10:12)
[2019-05-16] MEDS: FLUTICASONE/UMECLIDIN/VILANTER 100-62.5-25 MCG/DOSE IH SCH (10:13)
[2019-05-16] MEDS: UMECLIDINIUM BROMIDE 62.5 MCG/DOSE IH SCH (10:14)
--- NOTE | 2019-05-16 10:25 | EKG REPORT ---
SEVERITY:- ABNORMAL ECG - PROBABLE INFERIOR INFARCT, AGE INDETERMINATE ANTERIOR INFARCT, OLD ATRIAL FIBRILLATION : Confirmed by: Cathryn Lopez 16-May-2019 10:24:38
[2019-05-16 13:35] LABS: HEMATOCRIT 24.1 % (36.0-47.0); MEAN CORPUSCULAR HEMOGLOBIN 29.5 pg (27.0-33.4); MEAN CORPUSCULAR HGB CONC 32.4 g/dL (32.0-36.0); MEAN CORPUSCULAR VOLUME 91 fl (80-97); PLATELET COUNT 294 10^3/uL (150-450); RED BLOOD COUNT 2.66 10^6/uL (3.72-5.28); WHITE BLOOD COUNT 9.4 10^3/uL (4.0-10.5)
[2019-05-16 13:38] LABS: HEMOGLOBIN 7.8 g/dL (12.0-15.5)
--- NOTE | 2019-05-16 15:19 | PDOC PROGRESS REPORT ---
Subjective Progress Note for:: 05/16/19 Subjective:: No adverse events overnight. No new complaints. No more rectal bleeding. She feels better. Says she does not have much of an appetite. Her family says she is not really been eating for the past week or so since she left the hospital. Discussed at length the fact that she is been in the hospital 8 times since the beginning of this year with 11 total visits to the ER this year that for combination of reasons medical treatment is not helping her. She agreed to have palliative care come back in and to reevaluate her situation. Reason For Visit: AFIB WITH RVR,ACUTE ON CHRONIC DIASTOLIC CHF Physical Exam Vital Signs: Temp Pulse Resp BP Pulse Ox 98.5 F 66 15 121/52 L 100 05/16/19 11:54 05/16/19 14:00 05/16/19 11:54 05/16/19 11:54 05/16/19 11:54 Intake & Output 05/15/19 05/16/19 05/17/19 06:59 06:59 06:59 Intake Total 139 221 Output Total 450 250 Balance -311 -29 Weight 81 kg General appearance: PRESENT: no acute distress, cooperative, disheveled, morbidly obese Respiratory exam: PRESENT: decreased breath sounds, rhonchi, symmetrical, tachypnea, unlabored. ABSENT: accessory muscle use, chest wall tenderness, crackles, prolonged expiratory phas, wheezes Cardiovascular exam: PRESENT: irregular rhythm, systolic murmur - 3 out of 6 systolic murmur Pulses: PRESENT: normal carotid pulses Vascular exam: PRESENT: normal capillary refill GI/Abdominal exam: PRESENT: normal bowel sounds, soft. ABSENT: ascites, distended, guarding, rebound, tenderness Extremities exam: PRESENT: pedal edema, +2 edema - Upper and lower extremities. ABSENT: clubbing Musculoskeletal exam: PRESENT: normal inspection. ABSENT: deformity Neurological exam: PRESENT: alert, awake, oriented to person, oriented to place, oriented to situation, CN II-XII grossly intact, motor sensory deficit - Generalized extremity weakness Psychiatric exam: PRESENT: appropriate affect, normal mood Skin exam: PRESENT: dry, skin tears, warm, other - Skin overall was very thin and she had multiple areas of macules from bruising Results Laboratory Results: 05/16/19 13:28 05/16/19 04:15 05/15/19 05/15/1905/15/19 15:23 15:50 18:11 WBC RBC Hgb Hct MCV MCH MCHC RDW Plt Count Sodium Potassium Chloride Carbon Dioxide Anion Gap BUN Creatinine Est GFR ( Amer) Glucose Calcium Urine Color STRAW Urine Appearance CLEAR Urine pH 5.0 Ur Specific [place] 1.008 Urine Protein 30 H Urine Glucose (UA) NEGATIVE Urine Ketones NEGATIVE Urine Blood SMALL H Urine RBC (Auto) 1 Blood Type Cancelled O NEGATIVE Antibody Screen Cancelled NEGATIVE 05/15/19 05/16/19 05/16/19 21:40 04:15 04:15 WBC 9.7 Cancelled RBC 2.61 L Cancelled Hgb 7.6 L Cancelled Hct 23.8 L Cancelled MCV 91 Cancelled MCH 29.2 Cancelled MCHC 32.0 Cancelled RDW 19.9 H Cancelled Plt Count 294 Cancelled Sodium 145.6 H Potassium 4.5 Chloride 107 Carbon Dioxide 29 Anion Gap 10 BUN 47 H Creatinine 1.62 H Est GFR ( Amer) 37 L Glucose 98 Calcium 8.8 Urine Color Urine Appearance Urine pH Ur Specific [place] Urine Protein Urine Glucose (UA) Urine Ketones Urine Blood Urine RBC (Auto) Blood Type Antibody Screen 05/16/19 05/16/19 07:01 13:28 WBC 8.4 9.4 RBC 2.73 L 2.66 L Hgb 8.1 L 7.8 L Hct 25.1 L 24.1 L MCV 92 91 MCH 29.4 29.5 MCHC 32.1 32.4 RDW 20.5 H 20.0 H Plt Count 295 294 Sodium Potassium Chloride Carbon Dioxide Anion Gap BUN Creatinine Est GFR ( Amer) Glucose Calcium Urine Color Urine Appearance Urine pH Ur Specific [place] Urine Protein Urine Glucose (UA) Urine Ketones Urine Blood Urine RBC (Auto) Blood Type Antibody Screen 05/15/19 05/16/19 13:45 04:15 NT-Pro-B Natriuret Pep 4080 H 3470 H Impressions: Chest X-Ray 05/15/19 16:14 IMPRESSION: Stable radiographic appearance of the chest demonstrating cardiomegaly with mild vascular congestion. Assessment and Plan - Diagnosis (1) Atrial fibrillation with RVR Is this a current diagnosis for this admission?: Yes Plan: I increased her home doses of diltiazem and metoprolol and as a result her heart rate and blood pressure both improved. She is not a candidate for antico agulation (2) GI bleed Qualifiers: GI bleed type/associated pathology: unspecified gastrointestinal hemorrhage type Qualified Code(s): K92.2 - Gastrointestinal hemorrhage, unspecified Is this a current diagnosis for this admission?: Yes Plan: I suspect that this is just diverticular bleed or bleeding from hemorrhoids. She has not had any more bleeding since she is been here. No abdominal pain. Recent colonoscopy a few months ago showed a polyp, diverticulosis, hemorrhoids, and no masses. (3) Acute on chronic diastolic CHF (congestive heart failure) Is this a current diagnosis for this admission?: Yes Plan: She is responding to diuretics. We will continue to try to dry her up a little bit. (4) Anemia Qualifiers: Anemia type: due to chronic kidney disease Chronic kidney disease stage: stage 3 (moderate) Qualified Code(s): N18.3 - Chronic kidney disease, stage 3 (moderate); D63.1 - Anemia in chronic kidney disease Is this a current diagnosis for this admission?: Yes Plan: Hemoglobin is actually improved a little bit after she is been diuresed, and her hemoglobin is in her typical range, which would go along with volume overload w henever she came in (5) Chronic kidney disease, stage 3 Is this a current diagnosis for this admission?: Yes Plan: Creatinine in his usual range (6) Type 2 diabetes mellitus Qualifiers: Diabetes mellitus custodial insulin use: with custodial use Diabetes mellitus complication status: with kidney complications Diabetes mellitus complication detail: with chronic kidney disease Chronic kidney disease stage: stage 3 (moderate) Qualified Code(s): E11.22 - Type 2 diabetes mellitus with diabetic chronic kidney disease; N18.3 - Chronic kidney disease, stage 3 (moderate); Z79.4 - group home (current) use of insulin Is this a current diagnosis for this admission?: Yes Plan: We will continue her home medications including her Lantus and sliding scale. We will put her on a diabetic diet. - Plan Summary Summary: This woman is spent more time in the hospital this year than anywhere else. I think she is well past the point at which medical treatment is effective for her numerous conditions. She also does not want to be compliant warm salt on everything. We are having hospice and palliative care come back in to reevaluate her goals of care - Time Time Spent with patient: 15-24 minutes
[2019-05-16] MEDS: ATORVASTATIN CALCIUM 40 MG TABLET PO SCH (22:33)
[2019-05-16] MEDS: MIRTAZAPINE 15 MG TABLET PO SCH (22:33)
[2019-05-16] MEDS: MELATONIN 5 MG TABLET PO SCH (22:35)
[2019-05-16] MEDS ORDERED: INSULIN GLARGINE,HUM.REC.ANLOG 1,000 UNIT/10 ML VIAL (PYX) SUBCUT ONE (22:40)
[2019-05-16] MEDS: INSULIN GLARGINE,HUM.REC.ANLOG 1,000 UNIT/10 ML VIAL SUBCUT SCH (22:43)
[2019-05-17 05:25] LABS: ANION GAP 10 (5-19); BLOOD UREA NITROGEN 49 mg/dL (7-20); CALCIUM 8.7 mg/dL (8.4-10.2); CARBON DIOXIDE 31 mmol/L (22-30); CHLORIDE 106 mmol/L (98-107); GLUCOSE 109 mg/dL (75-110); POTASSIUM 4.1 mmol/L (3.6-5.0)
[2019-05-17] MEDS: PANTOPRAZOLE SODIUM 40 MG TABLET.DR PO SCH (05:49)
[2019-05-17] MEDS: INSULIN LISPRO 100 UNIT/ML 3 ML VIAL SUBCUT SCH ×4 (08:03→21:48)
[2019-05-17] MEDS: SERTRALINE HCL 50 MG TABLET PO SCH (08:10)
[2019-05-17] MEDS: PREDNISONE 5 MG TABLET PO SCH (08:11)
[2019-05-17] MEDS: LEVOTHYROXINE SODIUM 0.075 MG TABLET PO SCH (08:11)
[2019-05-17] MEDS: FERROUS SULFATE 325 MG TABLET PO SCH (08:11)
[2019-05-17] MEDS: DILTIAZEM HCL 180 MG CAPSULE.CR PO SCH (09:37)
[2019-05-17] MEDS: MULTIVITAMIN TABLET PO SCH (09:38)
[2019-05-17] MEDS: CALCIUM CARBONATE 250 MG/VITAMIN D3 125 UNIT TABLET PO SCH (09:38)
[2019-05-17] MEDS: METOPROLOL SUCCINATE 50 MG TAB.SR.24H PO SCH ×2 (09:38→22:07)
[2019-05-17] MEDS: FLUTICASONE/UMECLIDIN/VILANTER 100-62.5-25 MCG/DOSE IH SCH (09:39)
[2019-05-17] MEDS: CHOLECALCIFEROL (D3) 1,000 UNIT (25 MCG) TABLET PO SCH (09:39)
[2019-05-17] MEDS: UMECLIDINIUM BROMIDE 62.5 MCG/DOSE IH SCH (09:39)
[2019-05-17] MEDS: ASCORBIC ACID 500 MG TABLET PO SCH (09:39)
[2019-05-17] MEDS: ASPIRIN 81 MG TABLET, ENT COATED PO SCH (09:39)
[2019-05-17] MEDS: LIDOCAINE 5% (700 MG) TRANSDERMAL ADH..PATCH TP SCH (09:40)
[2019-05-17] MEDS: CYCLOSPORINE 0.05% OPH EMULSIO 0.4 ML DROPERETTE OU SCH (09:40)
--- NOTE | 2019-05-17 14:19 | PDOC PROGRESS REPORT ---
Subjective Progress Note for:: 05/17/19 Subjective:: No adverse events overnight. This morning her heart rate was little bit low and so her medications were adjusted. Her blood pressure has been good. Reason For Visit: AFIB WITH RVR,ACUTE ON CHRONIC DIASTOLIC CHF Physical Exam Vital Signs: Temp Pulse Resp BP Pulse Ox 97.4 F 65 17 117/47 L 98 05/17/19 11:55 05/17/19 11:55 05/17/19 11:55 05/17/19 11:55 05/17/19 11:55 Intake & Output 05/16/19 05/17/19 05/18/19 06:59 06:59 06:59 Intake Total 139 954 360 Output Total 450 750 Balance -311 204 360 Weight 81 kg 80 kg General appearance: PRESENT: no acute distress, cooperative, disheveled, morbidly obese Respiratory exam: PRESENT: decreased breath sounds, rhonchi, symmetrical, tac hypnea, unlabored. ABSENT: accessory muscle use, chest wall tenderness, crackles, prolonged expiratory phas, wheezes Cardiovascular exam: PRESENT: irregular rhythm, systolic murmur - 3 out of 6 systolic murmur Pulses: PRESENT: normal carotid pulses Vascular exam: PRESENT: normal capillary refill GI/Abdominal exam: PRESENT: normal bowel sounds, soft. ABSENT: ascites, distended, guarding, rebound, tenderness Extremities exam: PRESENT: pedal edema, +2 edema - Upper and lower extremities. ABSENT: clubbing Musculoskeletal exam: PRESENT: normal inspection. ABSENT: deformity Neurological exam: PRESENT: alert, awake, oriented to person, oriented to place, oriented to situation, CN II-XII grossly intact, motor sensory deficit - Generalized extremity weakness Psychiatric exam: PRESENT: appropriate affect, normal mood Skin exam: PRESENT: dry, skin tears, warm, other - Skin overall was very thin and she had multiple areas of macules from bruising Results Laboratory Results: 05/16/19 13:28 05/17/19 03:41 05/17/19 03:41 Sodium 146.5 H Potassium 4.1 Chloride 106 Carbon Dioxide 31 H Anion Gap 10 BUN 49 H Creatinine 2.00 H Est GFR ( Amer) 29 L Glucose 109 Calcium 8.7 05/15/19 05/16/19 05/17/19 13:45 04:15 03:41 NT-Pro-B Natriuret Pep 4080 H 3470 H 3250 H Impressions: Chest X-Ray 05/15/19 16:14 IMPRESSION: Stable radiographic appearance of the chest demonstrating cardiomegaly with mild vascular congestion. Assessment and Plan - Diagnosis (1) Atrial fibrillation with RVR Is this a current diagnosis for this admission?: Yes Plan: I increased her home doses of diltiazem and metoprolol and as a result her heart rate and blood pressure both improved. heart rate has slowed some so I keep the increase metoprolol and cut back the diltiazem to her home dose. She is not a candidate for anticoagulation (2) GI bleed Qualifiers: GI bleed type/associated pathology: unspecified gastrointestinal hemorrhage type Qualified Code(s): K92.2 - Gastrointestinal hemorrhage, unspecified Is this a current diagnosis for this admission?: Yes Plan: I suspect that this is just diverticular bleed or bleeding from hemorrhoids. She has not had any more bleeding since she is been here. No abdominal pain. Recent colonoscopy a few months ago showed a polyp, diverticulosis, hemorrhoids, and no masses. (3) Acute on chronic diastolic CHF (congestive heart failure) Is this a current diagnosis for this admission?: Yes Plan: She is responding to diuretics. We will continue to try to dry her up a little bit. (4) Anemia Qualifiers: Anemia type: due to chronic kidney disease Chronic kidney disease stage: stage 3 (moderate) Qualified Code(s): N18.3 - Chronic kidney disease, stage 3 (moderate); D63.1 - Anemia in chronic kidney disease Is this a current diagnosis for this admission?: Yes Plan: Hemoglobin is actually improved a little bit after she is been diuresed, and her hemoglobin is in her typical range, which would go along with volume overload whenever she came in (5) Chronic kidney disease, stage 3 Is this a current diagnosis for this admission?: Yes Plan: Creatinine in his usual range, but did bump a little bit (6) Type 2 diabetes mellitus Qualifiers: Diabetes mellitus alf insulin use: with alf use Diabetes mellitus complication status: with kidney complications Diabetes mellitus complication detail: with chronic kidney disease Chronic kidney disease stage: stage 3 (moderate) Qualified Code(s): E11.22 - Type 2 diabetes mellitus with diabetic chronic kidney disease; N18.3 - Chronic kidney disease, stage 3 ( moderate); 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 We will put her on a diabetic diet. - Plan Summary Summary: This woman is spent more time in the hospital this year than anywhere else. I think she is well past the point at which medical treatment is effective for her numerous conditions. She also does not want to be compliant warm salt on everything. We are having hospice and palliative care come back in to reevaluate her goals of care - Time Time Spent with patient: 15-24 minutes
[2019-05-17] MEDS: MELATONIN 5 MG TABLET PO SCH (22:07)
[2019-05-17] MEDS: DILTIAZEM HCL 120 MG CAP.SR.24H PO SCH (22:07)
[2019-05-17] MEDS: MIRTAZAPINE 15 MG TABLET PO SCH (22:07)
[2019-05-17] MEDS: ATORVASTATIN CALCIUM 40 MG TABLET PO SCH (22:07)
[2019-05-17] MEDS: INSULIN GLARGINE,HUM.REC.ANLOG 1,000 UNIT/10 ML VIAL SUBCUT SCH (22:07)
[2019-05-17] MEDS: PHARMACY COMMUNICATION ORDER MC SCH (22:08)
[2019-05-18] MEDS: PANTOPRAZOLE SODIUM 40 MG TABLET.DR PO SCH (06:09)
[2019-05-18] MEDS: INSULIN LISPRO 100 UNIT/ML 3 ML VIAL SUBCUT SCH ×4 (07:51→22:00)
[2019-05-18] MEDS: SERTRALINE HCL 50 MG TABLET PO SCH (08:08)
[2019-05-18] MEDS: FERROUS SULFATE 325 MG TABLET PO SCH (08:08)
[2019-05-18] MEDS: PREDNISONE 5 MG TABLET PO SCH (08:08)
[2019-05-18] MEDS: LEVOTHYROXINE SODIUM 0.075 MG TABLET PO SCH (08:08)
[2019-05-18] MEDS: UMECLIDINIUM BROMIDE 62.5 MCG/DOSE IH SCH (09:13)
[2019-05-18] MEDS: FLUTICASONE/UMECLIDIN/VILANTER 100-62.5-25 MCG/DOSE IH SCH (09:14)
[2019-05-18] MEDS: LIDOCAINE 5% (700 MG) TRANSDERMAL ADH..PATCH TP SCH (09:15)
[2019-05-18] MEDS: CHOLECALCIFEROL (D3) 1,000 UNIT (25 MCG) TABLET PO SCH (09:15)
[2019-05-18] MEDS: CYCLOSPORINE 0.05% OPH EMULSIO 0.4 ML DROPERETTE OU SCH (09:15)
[2019-05-18] MEDS: CALCIUM CARBONATE 250 MG/VITAMIN D3 125 UNIT TABLET PO SCH (09:15)
[2019-05-18] MEDS: ASPIRIN 81 MG TABLET, ENT COATED PO SCH (09:15)
[2019-05-18] MEDS: MULTIVITAMIN TABLET PO SCH (09:15)
[2019-05-18] MEDS: ASCORBIC ACID 500 MG TABLET PO SCH (09:16)
[2019-05-18] MEDS: METOPROLOL SUCCINATE 50 MG TAB.SR.24H PO SCH ×2 (09:16→22:56)
[2019-05-18] MEDS: DILTIAZEM HCL 120 MG CAP.SR.24H PO SCH ×2 (09:16→22:55)
[2019-05-18 09:29] LABS: BLOOD UREA NITROGEN 57 mg/dL (7-20); CARBON DIOXIDE 31 mmol/L (22-30); CHLORIDE 103 mmol/L (98-107); GLUCOSE 105 mg/dL (75-110); POTASSIUM 4.1 mmol/L (3.6-5.0)
[2019-05-18 09:52] LABS: ANION GAP 11 (5-19)
[2019-05-18] MEDS ORDERED: NORMAL SALINE 1000 ML 500 ML IV ONE (11:13)
--- NOTE | 2019-05-18 14:55 | PDOC PROGRESS REPORT ---
Subjective Progress Note for:: 05/18/19 Subjective:: No adverse events overnight. No new complaints. Her rate and blood pressure been stable. Oxygen saturations have been in the mid 90s on her usual level of oxygen support. Oral intake is not been good. Despite the fact that every day we talked about getting hospice and palliative care to come back in and talk to her about her goals of care her current condition and prognosis, as well as her lack of response to medical therapy, she asks me today, as she has every day, "what are we going to do to fix this?" Reason For Visit: AFIB WITH RVR,ACUTE ON CHRONIC DIASTOLIC CHF Physical Exam Vital Signs: Temp Pulse Resp BP Pulse Ox 97.9 F 67 18 134/53 H 100 05/18/19 11:29 05/18/19 14:00 05/18/19 11:29 05/18/19 11:29 05/18/19 11:29 Intake & Output 05/17/19 05/18/19 05/19/19 06:59 06:59 06:59 Intake Total 954 960 740 Output Total 750 Balance 204 960 740 Weight 80 kg 82 kg General appearance: PRESENT: no acute distress, cooperative, disheveled, morbidly obese Respiratory exam: PRESENT: decreased breath sounds, rhonchi, symmetrical, tachypnea, unlabored. ABSENT: accessory muscle use, chest wall tenderness, crackles, prolonged expiratory phas, wheezes Cardiovascular exam: PRESENT: irregular rhythm, systolic murmur - 3 out of 6 systolic murmur Pulses: PRESENT: normal carotid pulses Vascular exam: PRESENT: normal capillary refill GI/Abdominal exam: PRESENT: normal bowel sounds, soft. ABSENT: ascites, distended, guarding, rebound, tenderness Extremities exam: PRESENT: pedal edema, +2 edema - Upper and lower extremities. ABSENT: clubbing Musculoskeletal exam: PRESENT: normal inspection. ABSENT: deformity Neurological exam: PRESENT: alert, awake, oriented to person, oriented to place, oriented to situation, CN II-XII grossly intact, motor sensory deficit - Generalized extremity weakness Psychiatric exam: PRESENT: appropriate affect, normal mood Skin exam: PRESENT: dry, skin tears, warm, other - Skin overall was very thin and she had multiple areas of macules from bruising Results Laboratory Results: 05/16/19 13:28 05/18/19 08:40 05/18/19 08:40 Sodium 144.7 Potassium 4.1 Chloride 103 Carbon Dioxide 31 H Anion Gap 11 BUN 57 H Creatinine 2.24 H Est GFR ( Amer) 25 L Glucose 105 Calcium 9.0 05/15/19 18:11 Clean Catch Midstream Urine Culture - Final Enterococcus Faecalis(Group D) Mixed Urogenital Paula 05/15/19 05/16/19 05/17/19 13:45 04:15 03:41 NT-Pro-B Natriuret Pep 4080 H 3470 H 3250 H 05/18/19 08:40 NT-Pro-B Natriuret Pep 3710 H Impressions: Chest X-Ray 05/15/19 16:14 IMPRESSION: Stable radiographic appearance of the chest demonstrating cardiomegaly with mild vascular congestion. Assessment and Plan - Diagnosis (1) Atrial fibrillation with RVR Is this a current diagnosis for this admission?: Yes Plan: I increased her home doses of diltiazem and metoprolol and as a result her heart rate and blood pressure both improved. Heart rate is stable on her home dose of diltiazem and increased dose of metoprolol. She is not a candidate for anticoagulation (2) GI bleed Qualifiers: GI bleed type/associated pathology: unspecified gastrointestinal hemorrhage type Qualified Code(s): K92.2 - Gastrointestinal hemorrhage, unspecified Is this a current diagnosis for this admission?: Yes Plan: I suspect that this is just diverticular bleed or bleeding from hemorrhoids. She has not had any more bleeding since she is been here. No abdominal pain. Recent colonoscopy a few months ago showed a polyp, diverticulosis, hemorrhoids, and no masses. (3) Acute on chronic diastolic CHF (congestive heart failure) Is this a current diagnosis for this admission?: Yes Plan: Resolved. We stopped her Lasix yesterday morning and her creatinine had begun to trend up. I think she is probably about as fluid balance that she is going to get. (4) Anemia Qualifiers: Anemia type: due to chronic kidney disease Chronic kidney disease stage: stage 3 (moderate) Qualified Code(s): N18.3 - Chronic kidney disease, stage 3 (moderate); D63.1 - Anemia in chronic kidney disease Is this a current diagnosis for this admission?: Yes Plan: Hemoglobin is actually improved a little bit after she is been diuresed, and her hemoglobin is in her typical range, which would go along with volume overload whenever she came in (5) Chronic kidney disease, stage 3 Is this a current diagnosis for this admission?: Yes Plan: Creatinine has continued to trend up. BUN is also elevated. I have given her a small fluid bolus and have encouraged p.o. 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 We will put her on a diabetic diet. - Plan Summary Summary: This woman is spent more time in the hospital this year than anywhere else. I think she is well past the point at which medical treatment is effective for her numerous conditions. She also does not want to be compliant warm salt on everything. We are having hospice and palliative care come back in to reevaluate her goals of care - Time Time Spent with patient: 15-24 minutes
[2019-05-18] MEDS: MELATONIN 5 MG TABLET PO SCH (22:00)
[2019-05-18] MEDS: PHARMACY COMMUNICATION ORDER MC SCH (22:00)
[2019-05-18] MEDS: INSULIN GLARGINE,HUM.REC.ANLOG 1,000 UNIT/10 ML VIAL SUBCUT SCH (22:00)
[2019-05-18] MEDS: ATORVASTATIN CALCIUM 40 MG TABLET PO SCH (22:55)
[2019-05-18] MEDS: MIRTAZAPINE 15 MG TABLET PO SCH (22:56)
[2019-05-19 05:29] LABS: ANION GAP 10 (5-19); BLOOD UREA NITROGEN 56 mg/dL (7-20); CALCIUM 8.7 mg/dL (8.4-10.2); CARBON DIOXIDE 29 mmol/L (22-30); CHLORIDE 103 mmol/L (98-107); GLUCOSE 143 mg/dL (75-110); POTASSIUM 4.2 mmol/L (3.6-5.0)
[2019-05-19] MEDS: PANTOPRAZOLE SODIUM 40 MG TABLET.DR PO SCH (06:26)
[2019-05-19] MEDS: INSULIN LISPRO 100 UNIT/ML 3 ML VIAL SUBCUT SCH ×4 (08:07→22:13)
[2019-05-19] MEDS: FERROUS SULFATE 325 MG TABLET PO SCH (08:13)
[2019-05-19] MEDS: LEVOTHYROXINE SODIUM 0.075 MG TABLET PO SCH (08:13)
[2019-05-19] MEDS: SERTRALINE HCL 50 MG TABLET PO SCH (08:13)
[2019-05-19] MEDS: PREDNISONE 5 MG TABLET PO SCH (08:13)
[2019-05-19] MEDS: UMECLIDINIUM BROMIDE 62.5 MCG/DOSE IH SCH (09:20)
[2019-05-19] MEDS: FLUTICASONE/UMECLIDIN/VILANTER 100-62.5-25 MCG/DOSE IH SCH (09:20)
[2019-05-19] MEDS: CYCLOSPORINE 0.05% OPH EMULSIO 0.4 ML DROPERETTE OU SCH (09:21)
[2019-05-19] MEDS: LIDOCAINE 5% (700 MG) TRANSDERMAL ADH..PATCH TP SCH (09:21)
[2019-05-19] MEDS: ASCORBIC ACID 500 MG TABLET PO SCH (09:22)
[2019-05-19] MEDS: CALCIUM CARBONATE 250 MG/VITAMIN D3 125 UNIT TABLET PO SCH (09:22)
[2019-05-19] MEDS: METOPROLOL SUCCINATE 50 MG TAB.SR.24H PO SCH ×2 (09:22→22:31)
[2019-05-19] MEDS: MULTIVITAMIN TABLET PO SCH (09:22)
[2019-05-19] MEDS: DILTIAZEM HCL 120 MG CAP.SR.24H PO SCH ×2 (09:22→22:31)
[2019-05-19] MEDS: CHOLECALCIFEROL (D3) 1,000 UNIT (25 MCG) TABLET PO SCH (09:22)
[2019-05-19] MEDS: ASPIRIN 81 MG TABLET, ENT COATED PO SCH (09:22)
--- NOTE | 2019-05-19 14:35 | PDOC PROGRESS REPORT ---
Subjective Progress Note for:: 05/19/19 Subjective:: No adverse events overnight. No new complaints. Heart rate has been in a good range. Blood pressures have been well controlled. She is been resting comfortably. Appetite is not been very good. Reason For Visit: AFIB WITH RVR,ACUTE ON CHRONIC DIASTOLIC CHF Physical Exam Vital Signs: Temp Pulse Resp BP Pulse Ox 97.4 F 66 14 148/72 H 97 05/19/19 08:07 05/19/19 14:00 05/19/19 08:07 05/19/19 08:07 05/19/19 08:07 Intake & Output 05/18/19 05/19/19 05/20/19 06:59 06:59 06:59 Intake Total 960 1590 Balance 960 1590 Weight 82 kg 82.2 kg General appearance: PRESENT: no acute distress, cooperative, disheveled, morbidly obese Respiratory exam: PRESENT: decreased breath sounds, rhonchi, symmetrical, tachypnea, unlabored. ABSENT: accessory muscle use, chest wall tenderness, crackles, prolonged expiratory phas, wheezes Cardiovascular exam: PRESENT: irregular rhythm, systolic murmur - 3 out of 6 systolic murmur Pulses: PRESENT: normal carotid pulses Vascular exam: PRESENT: normal capillary refill GI/Abdominal exam: PRESENT: normal bowel sounds, soft. ABSENT: ascites, distended, guarding, rebound, tenderness Extremities exam: PRESENT: pedal edema, +2 edema - Upper and lower extremities. ABSENT: clubbing Musculoskeletal exam: PRESENT: normal inspection. ABSENT: deformity Neurological exam: PRESENT: alert, awake, oriented to person, oriented to place, oriented to situation, CN II-XII grossly intact, motor sensory deficit - Generalized extremity weakness Psychiatric exam: PRESENT: appropriate affect, normal mood Skin exam: PRESENT: dry, skin tears, warm, other - Skin overall was very thin and she had multiple areas of macules from bruising Results Laboratory Results: 05/16/19 13:28 05/19/19 04:45 05/19/19 04:45 Sodium 141.5 Potassium 4.2 Chloride 103 Carbon Dioxide 29 Anion Gap 10 BUN 56 H Creatinine 1.97 H Est GFR ( Amer) 30 L Glucose 143 H Calcium 8.7 05/15/19 05/16/19 05/17/19 13:45 04:15 03:41 NT-Pro-B Natriuret Pep 4080 H 3470 H 3250 H 05/18/19 08:40 NT-Pro-B Natriuret Pep 3710 H Impressions: Chest X-Ray 05/15/19 16:14 IMPRESSION: Stable radiographic appearance of the chest demonstrating cardiomegaly with mild vascular congestion. Assessment and Plan - Diagnosis (1) Atrial fibrillation with RVR Is this a current diagnosis for this admission?: Yes Plan: I increased her home doses of diltiazem and metoprolol and as a result her heart rate and blood pressure both improved. Heart rate is stable on her home dose of diltiazem and increased dose of metoprolol. She is not a candidate for anticoagulation (2) GI bleed Qualifiers: GI bleed type/associated pathology: unspecified gastrointestinal hemorrhage type Qualified Code(s): K92.2 - Gastrointestinal hemorrhage, unspecified Is this a current diagnosis for this admission?: Yes Plan: I suspect that this is just diverticular bleed or bleeding from hemorrhoids. She has not had any more bleeding since she is been here. No abdominal pain. Recent colonoscopy a few months ago showed a polyp, diverticulosis, hemorrhoids, and no masses. (3) Acute on chronic diastolic CHF (congestive heart failure) Is this a current diagnosis for this admission?: Yes Plan: Resolved. Lasix on hold for now. I think she is probably about as fluid balanced that she is going to get. (4) Anemia Qualifiers: Anemia type: due to chronic kidney disease Chronic kidney disease stage: stage 3 (moderate) Qualified Code(s): N18.3 - Chronic kidney disease, stage 3 (moderate); D63.1 - Anemia in chronic kidney disease Is this a current diagnosis for this admission?: Yes Plan: Hemoglobin is actually improved a little bit after she is been diuresed, and her hemoglobin is in her typical range, which would go along with volume overload whenever she came in (5) Chronic kidney disease, stage 3 Is this a current diagnosis for this admission?: Yes Plan: This stopped her Lasix a couple of days ago and gave her a small fluid bolus yesterday. Creatinine is trended down some now. We will have to watch her oral intake but I think this acute injury is going to resolve without much difficulty. 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 We will put her on a diabetic diet. - Plan Summary Summary: This woman is spent more time in the hospital this year than anywhere else. I think she is well past the point at which medical treatment is effective for her numerous conditions. She also does not want to be compliant warm salt on everything. We are having hospice and palliative care come back in to reevaluate her goals of care - Time Time Spent with patient: 15-24 minutes
[2019-05-19] MEDS: PHARMACY COMMUNICATION ORDER MC SCH (22:14)
[2019-05-19] MEDS ORDERED: INSULIN GLARGINE,HUM.REC.ANLOG 1,000 UNIT/10 ML VIAL (PYX) SUBCUT ONE (22:18)
[2019-05-19] MEDS: MELATONIN 5 MG TABLET PO SCH (22:31)
[2019-05-19] MEDS: MIRTAZAPINE 15 MG TABLET PO SCH (22:31)
[2019-05-19] MEDS: ATORVASTATIN CALCIUM 40 MG TABLET PO SCH (22:31)
[2019-05-19] MEDS: INSULIN GLARGINE,HUM.REC.ANLOG 1,000 UNIT/10 ML VIAL SUBCUT SCH (22:32)
[2019-05-20] MEDS: ACETAMINOPHEN 325 MG TABLET PO PRN ×2 (01:19→22:50)
[2019-05-20] MEDS ORDERED: FAMOTIDINE INJ/PF 20 MG/2 ML SDV IV ONE ×3 (03:12→05:30)
[2019-05-20] MEDS ORDERED: SUCRALFATE 1 GM TABLET ONE (03:12)
[2019-05-20] MEDS ORDERED: SUCRALFATE 1 GM TABLET PO ONE (03:45)
[2019-05-20] MEDS: PANTOPRAZOLE SODIUM 40 MG TABLET.DR PO SCH (06:00)
[2019-05-20 06:56] LABS: ANION GAP 9 (5-19); BLOOD UREA NITROGEN 58 mg/dL (7-20); CALCIUM 8.8 mg/dL (8.4-10.2); CARBON DIOXIDE 32 mmol/L (22-30); CHLORIDE 103 mmol/L (98-107); GLUCOSE 124 mg/dL (75-110); POTASSIUM 4.3 mmol/L (3.6-5.0)
[2019-05-20] MEDS: INSULIN LISPRO 100 UNIT/ML 3 ML VIAL SUBCUT SCH ×4 (10:31→22:51)
[2019-05-20] MEDS: ASPIRIN 81 MG TABLET, ENT COATED PO SCH (10:49)
[2019-05-20] MEDS: NORMAL SALINE 1000 ML 1,000 ML IV PRN ×2 (10:49→23:03)
[2019-05-20] MEDS: FERROUS SULFATE 325 MG TABLET PO SCH (10:50)
[2019-05-20] MEDS: LEVOTHYROXINE SODIUM 0.075 MG TABLET PO SCH (10:50)
[2019-05-20] MEDS: CYCLOSPORINE 0.05% OPH EMULSIO 0.4 ML DROPERETTE OU SCH (10:50)
[2019-05-20] MEDS: ASCORBIC ACID 500 MG TABLET PO SCH (10:50)
[2019-05-20] MEDS: CALCIUM CARBONATE 250 MG/VITAMIN D3 125 UNIT TABLET PO SCH (10:50)
[2019-05-20] MEDS: CHOLECALCIFEROL (D3) 1,000 UNIT (25 MCG) TABLET PO SCH (10:50)
[2019-05-20] MEDS: MULTIVITAMIN TABLET PO SCH (10:50)
[2019-05-20] MEDS: DILTIAZEM HCL 120 MG CAP.SR.24H PO SCH ×2 (10:50→22:50)
[2019-05-20] MEDS: SERTRALINE HCL 50 MG TABLET PO SCH (10:50)
[2019-05-20] MEDS: METOPROLOL SUCCINATE 50 MG TAB.SR.24H PO SCH ×2 (10:50→22:53)
[2019-05-20] MEDS: PREDNISONE 5 MG TABLET PO SCH (10:51)
[2019-05-20] MEDS: LIDOCAINE 5% (700 MG) TRANSDERMAL ADH..PATCH TP SCH (10:51)
[2019-05-20] MEDS: UMECLIDINIUM BROMIDE 62.5 MCG/DOSE IH SCH (10:51)
[2019-05-20] MEDS: FLUTICASONE/UMECLIDIN/VILANTER 100-62.5-25 MCG/DOSE IH SCH (10:52)
--- NOTE | 2019-05-20 15:18 | PDOC PROGRESS REPORT ---
Subjective Progress Note for:: 05/20/19 Subjective:: No adverse events overnight. No new complaints. Heart rate has been in a good range. Blood pressure has been normal. Oral intake is still not good. Reason For Visit: AFIB WITH RVR,ACUTE ON CHRONIC DIASTOLIC CHF Physical Exam Vital Signs: Temp Pulse Resp BP Pulse Ox 97.8 F 82 16 125/71 97 05/20/19 08:01 05/20/19 14:00 05/20/19 08:01 05/20/19 08:01 05/20/19 08:01 Intake & Output 05/19/19 05/20/19 05/21/19 06:59 06:59 06:59 Intake Total 1590 660 Output Total 120 Balance 1590 540 Weight 82.2 kg 80.1 kg General appearance: PRESENT: no acute distress, cooperative, disheveled, morbidly obese Respiratory exam: PRESENT: decreased breath sounds, rhonchi, symmetrical, tachyp aye, unlabored. ABSENT: accessory muscle use, chest wall tenderness, crackles, prolonged expiratory phas, wheezes Cardiovascular exam: PRESENT: irregular rhythm, systolic murmur - 3 out of 6 systolic murmur Pulses: PRESENT: normal carotid pulses Vascular exam: PRESENT: normal capillary refill GI/Abdominal exam: PRESENT: normal bowel sounds, soft. ABSENT: ascites, distended, guarding, rebound, tenderness Extremities exam: PRESENT: pedal edema, +2 edema - Upper and lower extremities. ABSENT: clubbing Musculoskeletal exam: PRESENT: normal inspection. ABSENT: deformity Neurological exam: PRESENT: alert, awake, oriented to person, oriented to place, oriented to situation, CN II-XII grossly intact, motor sensory deficit - Generalized extremity weakness Psychiatric exam: PRESENT: appropriate affect, normal mood Skin exam: PRESENT: dry, skin tears, warm, other - Skin overall was very thin and she had multiple areas of macules from bruising Results Laboratory Results: 05/16/19 13:28 05/20/19 05:11 05/20/19 05:11 Sodium 144.4 Potassium 4.3 Chloride 103 Carbon Dioxide 32 H Anion Gap 9 BUN 58 H Creatinine 2.23 H Est GFR ( Amer) 26 L Glucose 124 H Calcium 8.8 05/15/19 13:45 Blood Blood Culture - Final NO GROWTH IN 5 DAYS 05/15/19 05/16/19 05/17/19 13:45 04:15 03:41 NT-Pro-B Natriuret Pep 4080 H 3470 H 3250 H 05/18/19 08:40 NT-Pro-B Natriuret Pep 3710 H Impressions: Chest X-Ray 05/15/19 16:14 IMPRESSION: Stable radiographic appearance of the chest demonstrating cardiomegaly with mild vascular congestion. Assessment and Plan - Diagnosis (1) Atrial fibrillation with RVR Is this a current diagnosis for this admission?: Yes Plan: I increased her home doses of diltiazem and metoprolol and as a result her heart rate and blood pressure both improved. Heart rate is stable on her home dose of diltiazem and increased dose of metoprolol. She is not a candidate for anticoagulation (2) GI bleed Qualifiers: GI bleed type/associated pathology: unspecified gastrointestinal hemorrhage type Qualified Code(s): K92.2 - Gastrointestinal hemorrhage, unspecified Is this a current diagnosis for this admission?: Yes Plan: I suspect that this is just diverticular bleed or bleeding from hemorrhoids. She has not had any more bleeding since she is been here. No abdominal pain. Recent colonoscopy a few months ago showed a polyp, diverticulosis, hemorrhoids, and no masses. (3) Acute on chronic diastolic CHF (congestive heart failure) Is this a current diagnosis for this admission?: Yes Plan: Resolved. Lasix on hold for now. I think she is probably about as fluid balanced that she is going to get. (4) Anemia Qualifiers: Anemia type: due to chronic kidney disease Chronic kidney disease stage: stage 3 (moderate) Qualified Code(s): N18.3 - Chronic kidney disease, stage 3 (moderate); D63.1 - Anemia in chronic kidney disease Is this a current diagnosis for this admission?: Yes Plan: Hemoglobin is actually improved a little bit after she is been diuresed, and her hemoglobin is in her typical range, which would go along with volume overload whenever she came in (5) Chronic kidney disease, stage 3 Is this a current diagnosis for this admission?: Yes Plan: Her kidneys are stubbornly refusing to get better, in large part because she is hardly drinking any water., Put her on some IV fluids and see if we can get her creatinine to improve as well as her urine output. 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 We will put her on a diabetic diet. - Plan Summary Summary: This woman is spent more time in the hospital this year than anywhere else. I think she is well past the point at which medical treatment is effective for her numerous conditions. She also does not want to be compliant warm salt on everyt alec. We are having hospice and palliative care come back in to reevaluate her goals of care - Time Time Spent with patient: 15-24 minutes
[2019-05-20] MEDS ORDERED: INSULIN GLARGINE,HUM.REC.ANLOG 1,000 UNIT/10 ML VIAL SUBCUT SCH (22:00)
[2019-05-20] MEDS: ATORVASTATIN CALCIUM 40 MG TABLET PO SCH (22:50)
[2019-05-20] MEDS: MIRTAZAPINE 15 MG TABLET PO SCH (22:51)
[2019-05-20] MEDS: PHARMACY COMMUNICATION ORDER MC SCH (22:52)
[2019-05-20] MEDS: MELATONIN 5 MG TABLET PO SCH (22:59)
[2019-05-21] MEDS: PANTOPRAZOLE SODIUM 40 MG TABLET.DR PO SCH (05:58)
[2019-05-21] MEDS: INSULIN LISPRO 100 UNIT/ML 3 ML VIAL SUBCUT SCH ×2 (08:21→12:53)
[2019-05-21] MEDS: FERROUS SULFATE 325 MG TABLET PO SCH (08:26)
[2019-05-21] MEDS: PREDNISONE 5 MG TABLET PO SCH (08:26)
[2019-05-21] MEDS: LEVOTHYROXINE SODIUM 0.075 MG TABLET PO SCH (08:26)
[2019-05-21] MEDS: SERTRALINE HCL 50 MG TABLET PO SCH (08:26)
[2019-05-21] MEDS: UMECLIDINIUM BROMIDE 62.5 MCG/DOSE IH SCH (09:58)
[2019-05-21] MEDS: FLUTICASONE/UMECLIDIN/VILANTER 100-62.5-25 MCG/DOSE IH SCH (09:58)
[2019-05-21] MEDS: LIDOCAINE 5% (700 MG) TRANSDERMAL ADH..PATCH TP SCH (09:59)
[2019-05-21] MEDS: METOPROLOL SUCCINATE 50 MG TAB.SR.24H PO SCH (10:00)
[2019-05-21] MEDS: DILTIAZEM HCL 120 MG CAP.SR.24H PO SCH (10:00)
[2019-05-21] MEDS: CALCIUM CARBONATE 250 MG/VITAMIN D3 125 UNIT TABLET PO SCH (10:00)
[2019-05-21] MEDS: ASPIRIN 81 MG TABLET, ENT COATED PO SCH (10:00)
[2019-05-21] MEDS: CHOLECALCIFEROL (D3) 1,000 UNIT (25 MCG) TABLET PO SCH (10:00)
[2019-05-21] MEDS: ASCORBIC ACID 500 MG TABLET PO SCH (10:00)
[2019-05-21] MEDS: MULTIVITAMIN TABLET PO SCH (10:00)
[2019-05-21] MEDS: CYCLOSPORINE 0.05% OPH EMULSIO 0.4 ML DROPERETTE OU SCH (10:01)
[2019-05-21 10:54] LABS: BLOOD UREA NITROGEN 60 mg/dL (7-20); CALCIUM 8.3 mg/dL (8.4-10.2); CARBON DIOXIDE 29 mmol/L (22-30); GLUCOSE 123 mg/dL (75-110)
[2019-05-21 11:00] LABS: ANION GAP 7 (5-19); CHLORIDE 107 mmol/L (98-107); POTASSIUM 4.6 mmol/L (3.6-5.0)
[2019-05-21 13:04] VITALS: BP 116/73
--- NOTE | 2019-05-21 13:29 | PDOC DISCHARGE SUMMARY ---
Impression - Admit/DC Date/PCP Admission Date/Primary Care Provider: 05/15/19 16:34 GERSON MAY Discharge Date: 05/21/19 - Discharge Diagnosis (1) Atrial fibrillation with RVR Is this a current diagnosis for this admission?: Yes (2) GI bleed Is this a current diagnosis for this admission?: Yes (3) Acute on chronic diastolic CHF (congestive heart failure) Is this a current diagnosis for this admission?: Yes (4) Anemia Is this a current diagnosis for this admission?: Yes (5) Chronic kidney disease, stage 3 Is this a current diagnosis for this admission?: Yes (6) Type 2 diabetes mellitus Is this a current diagnosis for this admission?: Yes - Assessment Summary: This woman is spent more time in the hospital this year than anywhere else. I think she is well past the point at which medical treatment is effective for her numerous conditions. She also does not want to be compliant, wants salt on everything. We are having hospice and palliative care come back in to reevaluate her goals of care - Additional Information Resuscitation Status: Do Not Resuscitate Discharge Diet: Cardiac, Diabetic Discharge Activity: Supervised Activity Referrals: GERSON MAY MD [Primary Care Provider] - Follow up as needed (Patient is a resident of [facility].) Prescriptions: Metoprolol Succinate [Toprol Xl 50 mg Tab.sr] 50 mg PO Q12 #60 tab.sr.24h Home Medications: Apremilast [Otezla] 30 mg PO Q12 04/20/19 Ascorbic Acid [Vitamin C 500 mg Tablet] 500 mg PO DAILY 04/20/19 Aspirin [Ecotrin 81 mg EC Tablet] 81 mg PO DAILY 04/20/19 Atorvastatin Calcium [Lipitor 40 mg Tablet] 40 mg PO QHS 04/20/19 Benzonatate [Tessalon Perle 100 mg Capsule] 200 mg PO Q8HP PRN 04/20/19 Calcium Carbonate/Vitamin D3 [Calcium 600-Vit D3 400 Tablet] 2 tab PO DAILY 04/20/19 Cholecalciferol (Vitamin D3) [Vitamin D3 1000 Unit Tablet] 1,000 unit PO DAILY 04/20/19 Cyclosporine 0.05% Oph Emulsio [Restasis 0.05% Oph Emulsion Pf 0.4 ml] 1 drop OU DAILY 04/20/19 Ferrous Sulfate [Feosol 325 mg Tablet] 325 mg PO QAM 04/20/19 Fluticasone/Umeclidin/Vilanter [Trelegy 100-62.5-25 Mcg Ellipta 14 Dose/Dpi] 1 puff IH DAILY 04/20/19 Insulin Glargine,Hum.rec.anlog [Basaglar Kwikpen U-100] 20 unit SQ QHS 04/20/19 Insulin Lispro [Humalog Insulin (Lispro) 100 unit/mL] See Protocol SUBCUT .SLD SCALE 04/20/19 Lidocaine [Lidoderm 5% (700 mg) Transdermal Patch] 1 patch TP QAM 04/20/19 Mag Hydrox/Al Hydrox/Simeth [Maalox Plus Susp 30 Udcup] 20 ml PO DAILYP PRN 04/20/19 Melatonin [Melatonin 5 mg Tablet] 5 mg PO QHS 04/20/19 Mirtazapine 7.5 mg PO QHS 04/20/19 Pantoprazole Sodium [Protonix [address] Tablet] 40 mg PO Q6AM 04/20/19 Prednisone [Deltasone 5 mg Tablet] 5 mg PO QAM 04/20/19 Sertraline HCl [Zoloft 50 mg Tablet] 50 mg PO QAM 04/20/19 Tiotropium Elaine [Spiriva Handihaler 5 Cap/Kit (18 Mcg/Cap)] 1 cap IH DAILY 04/20/19 Vit A/Vit C/Vit E/Zinc/Copper [Preservision Areds Softgel] 2 tab PO QAM 04/20/19 Levothyroxine Sodium [Synthroid 0.075 mg Tablet] 0.075 mg PO QAM 30 Days #30 tablet 04/25/19 Diltiazem HCl [Cardizem Cd 120 mg Capsule] 120 mg PO DAILY #30 cap.sr.24h 05/07/19 Furosemide [Lasix 20 mg Tablet] 20 mg PO QAM #30 tablet 05/07/19 Multivitamin [Tab-A-Deana (Multiple Vitamin) Tablet] 1 tab PO DAILY #90 tablet 05/07/19 Acetaminophen [Tylenol] 650 mg PO Q6HP PRN 05/21/19 Allopurinol [Zyloprim 300 mg Tablet] 300 mg PO DAILY 05/21/19 Fexofenadine HCl [Hyacinth] 180 mg PO DAILY 05/21/19 Metoprolol Succinate [Toprol Xl 50 mg Tab.sr] 50 mg PO Q12 #60 tab.sr.24h 05/21/19 Ondansetron HCl [Zofran 4 mg Tablet] 4 mg PO Q12HP PRN 05/21/19 History of Present Illiness History of Present Illness: PREETI ELIZABETH is a 78 year old female with a long and extensive list of medical problems including insulin-dependent diabetes mellitus, chronic hypoxemic respiratory failure, atrial fibrillation, mild aortic stenosis, mitral regurgitation, and pulmonary hypertension who presented today from [facility] where she is a long-term resident, with bright red blood per rectum. She had a colonoscopy on November 23, 2018 which showed one 4 mm polyp that was removed, extensive diverticulosis, extensive external hemorrhoids, no tumor or obvious source of current bleeding at that time. She said that she had been not feeling terribly abnormal and had no abdominal pain her nurse saw that she had some blood per bowel movement so they brought her over here. Her hemoglobin, which is always on the low side, was in her usual range. She was recently discharged from here a couple of weeks ago and at that time it was determined that she should not be on any anticoagulants for her atrial fibrillation due to her high fall risk and high bleeding risk. When she got here, her atrial fibrillation was noted to be uncontrolled, and she had edema in all of her extremities. She had pulmonary vascular congestion on her chest x-ray. She was started on a Cardizem drip in the ER. She had a dose of Lasix ordered. She is being admitted for further evaluation and management. This will be her eighth hospitalization this calendar year, and her 11th visit to the emergency room total for this year. She is a DNR. Hospital Course Hospital Course: The bleeding was likely hemorrhoidal, or possibly diverticular. She had a colonoscopy done a few months ago where she had one small polyp removed and no masses were noted, just extensive diverticulosis and hemorrhoids. She is not on an anticoagulant and I do not think she should be on one because she is high risk of bleeding. Bleeding was the reason she was brought here to the ER, the reason she stated was because her atrial fibrillation was out of control she was fluid overloaded. We adjusted her medications and got her heart rate under better control, and had to give her some diuresis to get rid of some the excess fluid. However, because of her baseline frailty, she did not tolerate diuresis very well and developed an acute on chronic kidney injury. We gave her a little bit of IV fluids and her creatinine is now pretty close to her normal range. Her home medications are all the same, with the exception of an increased dose of metoprolol. The combination of her atrial fibrillation, hypertension, aortic stenosis make her fluid balance very difficult to maintain. Palliative care is going to continue to follow-up with her over at [facility]. Her labs and examination were reassuring and she was discharged in stable condition. Physical Exam Vital Signs: Temp Pulse Resp BP Pulse Ox 97.6 F 82 15 116/73 97 05/21/19 11:29 05/21/19 11:29 05/21/19 07:44 05/21/19 11:29 05/21/19 11:29 Intake & Output 05/20/19 05/21/19 05/22/19 06:59 06:59 06:59 Intake Total 660 1860 Output Total 120 Balance 540 1860 Weight 80.1 kg General appearance: PRESENT: no acute distress, cooperative, disheveled, morbidly obese Respiratory exam: PRESENT: decreased breath sounds, symmetrical, unlabored. ABSENT: accessory muscle use, chest wall tenderness, crackles, prolonged expiratory phase, wheezes Cardiovascular exam: PRESENT: irregular rhythm, systolic murmur - 3 out of 6 systolic murmur Pulses: PRESENT: normal carotid pulses Vascular exam: PRESENT: normal capillary refill GI/Abdominal exam: PRESENT: normal bowel sounds, soft. ABSENT: ascites, distended, guarding, rebound, tenderness Extremities exam: PRESENT: pedal edema, +1 edema - Upper and lower extremities. ABSENT: clubbing Musculoskeletal exam: PRESENT: normal inspection. ABSENT: deformity Neurological exam: PRESENT: alert, awake, oriented to person, oriented to place, oriented to situation, motor sensory deficit - Generalized extremity weakness Psychiatric exam: PRESENT: appropriate affect, normal mood Skin exam: PRESENT: dry, skin tears, warm, other - Skin overall was very thin and she had multiple areas of macules from bruising Results Laboratory Results: WBC 9.4 10^3/uL (4.0-10.5) 05/16/19 13:28 RBC 2.66 10^6/uL (3.72-5.28) L 05/16/19 13:28 Hgb 7.8 g/dL (12.0-15.5) L 05/16/19 13:28 Hct 24.1 % (36.0-47.0) L 05/16/19 13:28 MCV 91 fl (80-97) 05/16/19 13:28 MCH 29.5 pg (27.0-33.4) 05/16/19 13:28 MCHC 32.4 g/dL (32.0-36.0) 05/16/19 13:28 RDW 20.0 % (11.5-14.0) H 05/16/19 13:28 Plt Count 294 10^3/uL (150-450) 05/16/19 13:28 Lymph % (Auto) 8.6 % (13-45) L 05/15/19 13:45 [place] % (Auto) 8.5 % (3-13) 05/15/19 13:45 Eos % (Auto) 1.0 % (0-6) 05/15/19 13:45 Baso % (Auto) 0.8 % (0-2) 05/15/19 13:45 Absolute Neuts (auto) 7.6 10^3/uL (1.7-8.2) 05/15/19 13:45 Absolute Lymphs (auto) 0.8 10^3/uL (0.5-4.7) 05/15/19 13:45 Absolute Monos (auto) 0.8 10^3/uL (0.1-1.4) 05/15/19 13:45 Absolute Eos (auto) 0.1 10^3/uL (0.0-0.6) 05/15/19 13:45 Absolute Basos (auto) 0.1 10^3/uL (0.0-0.2) 05/15/19 13:45 Seg Neutrophils % 81.1 % (42-78) H 05/15/19 13:45 Platelet Estimate Cancelled 05/16/19 04:15 PT 14.8 SEC (11.4-15.4) 05/15/19 17:00 INR 1.16 05/15/19 17:00 Sodium 143.1 mmol/L (137-145) 05/21/19 10:11 Potassium 4.6 mmol/L (3.6-5.0) 05/21/19 10:11 Chloride 107 mmol/L (98-107) 05/21/19 10:11 Carbon Dioxide 29 mmol/L (22-30) 05/21/19 10:11 Anion Gap 7 (5-19) 05/21/19 10:11 BUN 60 mg/dL (7-20) H 05/21/19 10:11 Creatinine 1.89 mg/dL (0.52-1.25) H 05/21/19 10:11 Est GFR ( Amer) 31 (>60) L 05/21/19 10:11 Est GFR (MDRD) Non-Af 26 (>60) L 05/21/19 10:11 Glucose 123 mg/dL (75-110) H 05/21/19 10:11 POC Glucose 140 mg/dL (70-110) H 05/21/19 11:56 Calcium 8.3 mg/dL (8.4-10.2) L 05/21/19 10:11 Total Bilirubin 0.7 mg/dL (0.2-1.3) 05/15/19 13:45 Direct Bilirubin 0.2 mg/dL (0.0-0.4) 05/15/19 13:45 Neonat Total Bilirubin Not Reportable 05/15/19 13:45 Neonat Direct Bilirubin Not Reportable 05/15/19 13:45 Neonat Indirect Bili Not Reportable 05/15/19 13:45 AST 28 U/L (14-36) 05/15/19 13:45 ALT 25 U/L (<35) 05/15/19 13:45 Alkaline Phosphatase 117 U/L (38-126) 05/15/19 13:45 NT-Pro-B Natriuret Pep 3710 pg/mL (<450) H 05/18/19 08:40 Total Protein 6.1 g/dL (6.3-8.2) L 05/15/19 13:45 Albumin 3.3 g/dL (3.5-5.0) L 05/15/19 13:45 Urine Color STRAW 05/15/19 18:11 Urine Appearance CLEAR 05/15/19 18:11 Urine pH 5.0 (5.0-9.0) 05/15/19 18:11 Ur Specific [place] 1.008 05/15/19 18:11 Urine Protein 30 mg/dL (NEGATIVE) H 05/15/19 18:11 Urine Glucose (UA) NEGATIVE mg/dL (NEGATIVE) 05/15/19 18:11 Urine Ketones NEGATIVE mg/dL (NEGATIVE) 05/15/19 18:11 Urine Blood SMALL (NEGATIVE) H 05/15/19 18:11 Urine Nitrite (Reflex) NEGATIVE (NEGATIVE) 05/15/19 18:11 Urine Bilirubin NEGATIVE (NEGATIVE) 05/15/19 18:11 Urine Urobilinogen NEGATIVE mg/dL (<2.0) 05/15/19 18:11 Leukocyte Esterase Rfl SMALL (NEGATIVE) H 05/15/19 18:11 Urine RBC (Auto) 1 /HPF 05/15/19 18:11 Urine WBC (Reflex) 2 /HPF 05/15/19 18:11 Squamous Epi Cells Auto <1 /HPF 05/15/19 18:11 Urine Ascorbic Acid 20 (NEGATIVE) H 05/15/19 18:11 POC Stool Occult Blood POSITIVE (NEGATIVE) 05/15/19 15:25 Slides for Path Review Cancelled 05/16/19 04:15 Blood Type O NEGATIVE 05/15/19 15:50 Antibody Screen NEGATIVE 05/15/19 15:50 05/15/19 05/16/19 05/17/19 13:45 04:15 03:41 NT-Pro-B Natriuret Pep 4080 H 3470 H 3250 H 05/18/19 08:40 NT-Pro-B Natriuret Pep 3710 H Impressions: Chest X-Ray 05/15/19 16:14 IMPRESSION: Stable radiographic appearance of the chest demonstrating cardiomegaly with mild vascular congestion. Plan Time Spent: Greater than 30 Minutes Stroke Is this a Stroke Patient?: No Acute Heart Failure - Is this a Heart Failure Patient?: No
== END 2019-05-21 15:13 | DRG 308 ==
LOC: ER 12:59 → EH 16:34 → 3N 18:26
PROVIDERS: ADMIT Family Medicine; ATTEND Family Medicine
DX: I48.91 Unspecified atrial fibrillation (principal); I50.33 Acute on chronic diastolic (congestive) heart failure; K92.2 Gastrointestinal hemorrhage, unspecified; I13.0 Hypertensive heart and chronic kidney disease with heart failure and stage 1 through stage 4 chronic kidney disease, or unspecified chronic kidney disease; N17.9 Acute kidney failure, unspecified; R60.9 Edema, unspecified; D63.1 Anemia in chronic kidney disease; E11.22 Type 2 diabetes mellitus with diabetic chronic kidney disease; N18.3 Chronic kidney disease, stage 3 (moderate); I25.10 Atherosclerotic heart disease of native coronary artery without angina pectoris; E78.00 Pure hypercholesterolemia, unspecified; J44.9 Chronic obstructive pulmonary disease, unspecified; K21.9 Gastro-esophageal reflux disease without esophagitis; L40.9 Psoriasis, unspecified; Z66 Do not resuscitate; Z95.5 Presence of coronary angioplasty implant and graft; Z79.01 Long term (current) use of anticoagulants; Z79.82 Long term (current) use of aspirin; Z79.4 Long term (current) use of insulin; Z79.51 Long term (current) use of inhaled steroids; Z79.52 Long term (current) use of systemic steroids; Z79.899 Other long term (current) drug therapy
CPT/HCPCS: 36415; 71045; 80048; 80053; 81001; 82962; 83880; 85025; 85610; 86850; 86900; 86901; 87040; 87086; 87088; 87186; 93005; 93010; 99291; J1815; J1940; J3490; J7030; J7512; S0028

== ENCOUNTER 2019-05-31 19:21 | Inpatient (IN) | payer MEDICARE, MEDICAID ==
[2019-05-31] MEDS ORDERED: DILTIAZEM HCL INJ 25 MG/5 ML VIAL ONE (19:39)
[2019-05-31] MEDS ORDERED: DILTIAZEM HCL INJ 25 MG/5 ML VIAL IV ONE ×2 (19:46→20:09)
--- NOTE | 2019-05-31 19:59 | RADIOLOGY REPORT (SQ) ---
EXAM DESCRIPTION: CHEST SINGLE VIEW COMPLETED DATE/TIME: 05/31/2019 7:41 pm REASON FOR STUDY: cp COMPARISON: 05/15/2019 TECHNIQUE: Single frontal radiographic view of the chest acquired. NUMBER OF VIEWS: One view. LIMITATIONS: None. FINDINGS: LUNGS AND PLEURA: No pneumothorax. Increased basilar interstitial- airspace opacities and pleural effusions. MEDIASTINUM AND HILAR STRUCTURES: Stable. HEART AND VASCULAR STRUCTURES: Stable. BONES: No acute findings. HARDWARE: None in the chest. OTHER: No other significant finding. IMPRESSION: Increased basilar interstitial- airspace opacities and pleural effusions. TECHNICAL DOCUMENTATION: JOB ID: [id number] [id number] 2010 [employer]- All Rights Reserved Reading location - IP/workstation name: [email or web address]
[2019-05-31] MEDS ORDERED: CALCIUM GLUCONATE 1000 MG/10 ML INJ IV ONE (20:10)
[2019-05-31 20:14] LABS: HEMATOCRIT 27.8 % (36.0-47.0); HEMOGLOBIN 8.9 g/dL (12.0-15.5); MEAN CORPUSCULAR HEMOGLOBIN 29.5 pg (27.0-33.4); MEAN CORPUSCULAR VOLUME 92 fl (80-97); PLATELET COUNT 345 10^3/uL (150-450); RED BLOOD COUNT 3.02 10^6/uL (3.72-5.28); RED CELL DISTRIBUTION WIDTH 22.3 % (11.5-14.0); WHITE BLOOD COUNT 9.7 10^3/uL (4.0-10.5)
[2019-05-31 20:22] LABS: INTERNATIONAL RATION (INR) 1.18; PROTHROMBIN TIME 15.1 SEC (11.4-15.4)
[2019-05-31 20:29] LABS: ABSOLUTE LYMPHOCYTES# (MANUAL) 0.8 10^3/uL (0.5-4.7); ABSOLUTE MONOCYTES # (MANUAL) 0.4 10^3/uL (0.1-1.4); ANISOCYTOSIS 3+; BASOPHILS % (MANUAL) 0 % (0-2); EOSINOPHILS % (MANUAL) 0 % (0-6); LYMPHOCYTES % (MANUAL) 7 % (13-45); MONOCYTES % (MANUAL) 4 % (3-13); SEGMENTED NEUTROPHILS % (MAN) 88 % (42-78); TOTAL CELLS COUNTED 100
[2019-05-31 20:30] LABS: OVALOCYTES SLIGHT; PLATELET COMMENT ADEQUATE
[2019-05-31 20:33] LABS: ALBUMIN 3.5 g/dL (3.5-5.0); ALKALINE PHOSPHATASE 92 U/L (38-126); ANION GAP 10 (5-19); ASPARTATE AMINO TRANSFERASE 24 U/L (14-36); BILIRUBIN,DIRECT 0.2 mg/dL (0.0-0.4); BILIRUBIN,TOTAL 0.4 mg/dL (0.2-1.3); BLOOD UREA NITROGEN 49 mg/dL (7-20); CALCIUM 9.2 mg/dL (8.4-10.2); CARBON DIOXIDE 29 mmol/L (22-30); CHLORIDE 108 mmol/L (98-107); CREATINE KINASE 24 U/L (30-135); GLUCOSE 156 mg/dL (75-110); POTASSIUM 4.2 mmol/L (3.6-5.0); TOTAL PROTEIN 6.6 g/dL (6.3-8.2)
[2019-05-31 20:47] LABS: CREATINE KINASE MB 1.35 ng/mL (<4.55)
[2019-05-31 20:52] LABS: TROPONIN I 0.036 ng/mL
[2019-05-31] MEDS ORDERED: NORMAL SALINE 1000 ML 1,000 ML IV ONE (20:54)
[2019-05-31] MEDS ORDERED: DILTIAZEM HCL 60 MG TABLET PO ONE (21:13)
[2019-05-31] MEDS ORDERED: DILTIAZEM HCL/D5W 125 MG/125 ML RTUINJ IV PRN (21:58)
--- NOTE | 2019-05-31 22:03 | ER Document Report ---
ED General - General Chief Complaint: Palpitations Stated Complaint: PALPITATIONS Time Seen by Provider: 05/31/19 19:46 Information source: Patient Notes: Ms. Tate is a 78-year-old female with multiple medical problems most notable for atrial fibrillation on diltiazem and Eliquis BIBA for palpitations. On initial evaluation, the patient endorses diffuse fatigue and intermittent shortness of breath. She denies any chest pain however she feels her heart rate racing. She denies any fevers or chills. She states that over the past week, the left lower extremity has become increasingly more swollen and she developed a wound to the dorsum of her left foot. She states that at some point "it busted open". Patient denies any trauma to the area. She feels as if the palpitations have been ongoing for the past week although worsened acutely tonight. She denies any missed doses of medication. Patient endorses chills without any fevers. Of note, other medical problems include GI bleed, hypertension, diabetes, CAD, CHF, renal failure, COPD, UTIs, ascites, and hypothyroidism. TRAVEL OUTSIDE OF THE [place] IN LAST 30 DAYS: No - Related Data Allergies/Adverse Reactions: adhesive tape Allergy (Verified 05/15/19 14:02) methotrexate [Methotrexate] Allergy (Verified 04/20/19 16:05) Penicillins Allergy (Verified 04/21/19 11:29) Past Medical History - Social History Smoking Status: Former Smoker Frequency of alcohol use: None Drug Abuse: None Family History: Reviewed & Not Pertinent, CAD Patient has suicidal ideation: No Patient has homicidal ideation: No - Past Medical History Cardiac Medical History: Reports: Hx Atrial Fibrillation, Hx Congestive Heart Failure, Hx Coronary Artery Disease - With 2 stents in the past, Hx Hypercholesterolemia, Hx Hypertension Pulmonary Medical History: Reports: Hx COPD, Hx Pneumonia, Hx Respiratory Failure Denies: Hx Tuberculosis Neurological Medical History: Denies: Hx Migraine, Hx Seizures Endocrine Medical History: Reports: Hx Diabetes Mellitus Type 2 Renal/ Medical History: Denies: Hx End Stage Renal Disease, Hx Peritoneal Dialysis GI Medical History: Reports: Hx Gastroesophageal Reflux Disease Musculoskeletal Medical History: Reports Hx Arthritis Skin Medical History: Reports Hx Psoriasis Psychiatric Medical History: Reports: Hx Depression Denies: Hx Bipolar Disorder Past Surgical History: Reports: Hx Cardiac Catheterization - x2 stents, Hx Herniorrhaphy, Hx Hysterectomy. Denies: Hx Pacemaker - Immunizations Immunizations up to date: Yes Hx Diphtheria, Pertussis, Tetanus Vaccination: Yes Review of Systems - Review of Systems Constitutional: See HPI - Radiographs his family live EENT: No symptoms reported Cardiovascular: See HPI Respiratory: No symptoms reported Gastrointestinal: No symptoms reported Genitourinary: No symptoms reported Female Genitourinary: No symptoms reported Musculoskeletal: No symptoms reported Skin: No symptoms reported Hematologic/Lymphatic: No symptoms reported Neurological/Psychological: No symptoms reported Physical Exam - Vital signs Vitals: Pulse Ox 100 05/31/19 19:23 Interpretation: Normal, Hypertensive, Tachycardic - General General appearance: Appears well, Alert - HEENT Head: Normocephalic, Atraumatic Eyes: Normal Pupils: PERRL - Respiratory Respiratory status: No respiratory distress Chest status: Nontender Breath sounds: Normal Chest palpation: Normal - Cardiovascular Rhythm: Irregularly irregular, Tachycardia Heart sounds: Normal auscultation Murmur: No - Abdominal Inspection: Normal Distension: No distension Bowel sounds: Normal Tenderness: Nontender Organomegaly: No organomegaly - Back Back: Normal, Nontender - Extremities General upper extremity: Normal inspection, Nontender, Normal color, Normal ROM, Normal temperature General lower extremity: Normal ROM, Normal weight bearing, Other - The entire left lower extremity is significantly more swollen than the right. On the left, the patient has 3+ pitting edema below the knee and 1+ pitting edema to mid thigh. She also has a 3 cm epithelialized ulceration to the dorsum of the left foot.. No: Carla's sign - Neurological Neuro grossly intact: Yes Cognition: Normal Orientation: AAOx4 Raj Coma Scale Eye Opening: Spontaneous Raj Coma Scale Verbal: Oriented [place] Coma Scale Motor: Obeys Commands Raj Coma Scale Total: 15 Speech: Normal Motor strength normal: LUE, RUE, LLE, RLE Sensory: Normal - Psychological Associated symptoms: Normal affect, Normal mood - Skin Skin Temperature: Warm Skin Moisture: Dry Skin Color: Normal Course - Re-evaluation Re-evalutation: She is generally well-appearing and nontoxic. Initial vitals notable for significant tachycardia with mildly elevated blood pressure. EKG is nonischemic however the patient does have evidence of atrial fibrillation with RVR. Patient ordered for diltiazem 10 mg push. Patient's heart rate did not significant improve with the diltiazem 10 mg IV push. Patient received an additional 10 mg however her blood pressure did drop nightly from 150 systolic to 130. So she was given 1 g of calcium gluconate with the second dose of diltiazem. Heart rate improved slightly but not significantly. I was evaluating another patient and when I returned approximately 30 to 40 minutes later, the patient's heart rate was back up to the 130s. CBC does not show significant leukocytosis or left shift. H&H is low however improved from prior. CMP notable for elevated creatinine at 2.08 however this is only slightly worse than prior. 06/01/19 22:20 Patient continues to be tachycardic despite 2 doses of diltiazem each 10 mg. Patient placed on diltiazem drip. called to admit the patient to the hospital for further care as the patient will required diltiazem infusion. She will be admitted to [facility]. - Vital Signs Vital signs: Temp Pulse Resp BP Pulse Ox 97.9 F 80 14 118/69 100 05/31/19 19:33 06/01/19 00:53 06/01/19 01:01 06/01/19 01:01 06/01/19 00:53 - Laboratory Result Diagrams: 05/31/19 20:00 05/31/19 20:00 Laboratory results interpreted by me: 05/31/19 05/31/19 20:00 20:00 RBC 3.02 L Hgb 8.9 L Hct 27.8 L RDW 22.3 H Seg Neuts % (Manual) 88 H Lymphocytes % (Manual) 7 L Abs Neuts (Manual) 8.5 H Sodium 146.8 H Chloride 108 H BUN 49 H Creatinine 2.04 H Est GFR ( Amer) 28 L Est GFR (MDRD) Non-Af 23 L Glucose 156 H Creatine Kinase 24 L - EKG Interpretation by Me Rate: Tachycardia Rhythm: A.Fib When compared to previous EKG there are: Changes noted Additional EKG results interpreted by me: 06/01/19 02:13 EKG shows atrial fibrillation with rapid ventricular response. Critical Care Note - Critical Care Note Total time excluding time spent on procedures (mins): 35 - cardiovascular, infec tious, hemodynamic monitoring Discharge - Discharge Clinical Impression: Atrial fibrillation with rapid ventricular response Condition: Good Disposition: ADMITTED INPATIENT Admitting Provider: Channing (Hospitalist) Unit Admitted: IMCU
[2019-05-31] MEDS ORDERED: LEVALBUTEROL HCL NEB 0.63 MG/3 ML AMPUL NEB PRN (22:28)
[2019-05-31] MEDS ORDERED: DEXTROSE 50%-WATER 25 GM/50 ML DISP.SYRIN IV PRN ×2 (22:28)
[2019-05-31] MEDS ORDERED: MAGNESIUM HYDROXIDE SUSP 30 ML UDCUP PO PRN (22:28)
[2019-05-31] MEDS ORDERED: ONDANSETRON HCL INJ/PF 4 MG/2 ML SDV IV PRN (22:28)
[2019-05-31] MEDS ORDERED: GLUCAGON,HUMAN RECOMB 1 MG INJ IM PRN (22:28)
[2019-05-31] MEDS ORDERED: DEXTROSE 40% GEL 15 GM TUBE PO PRN ×2 (22:28)
[2019-05-31] MEDS ORDERED: MAG HYDROX/AL HYDROX/SIMETH SUSP 30 ML UDCUP PO PRN (22:28)
[2019-05-31] MEDS ORDERED: ACETAMINOPHEN 325 MG TABLET PO PRN (22:33)
[2019-05-31] MEDS ORDERED: MORPHINE SULFATE 10 MG/ML INJ IV PRN (22:33)
[2019-05-31] MEDS ORDERED: METOPROLOL SUCCINATE 50 MG TAB.SR.24H PO ONE (22:38)
[2019-05-31] MEDS: DILTIAZEM HCL/D5W 125 MG/125 ML RTUINJ IV PRN (23:33)
[2019-06-01] MEDS: LEVALBUTEROL HCL NEB 1.25 MG/3 ML AMPUL NEB SCH ×3 (00:52→16:21)
[2019-06-01] MEDS: IPRATROPIUM BROMIDE 0.02% NEB 0.5 MG/2.5 ML AMPUL NEB SCH ×3 (00:52→16:21)
--- NOTE | 2019-06-01 03:13 | PDOC H&P ---
History of Present Illness Admission Date/PCP: 05/31/2019 22:12 GERSON MAY Patient complains of: Palpitations History of Present Illness: PREETI ELIZABETH is a 78 year old female who presented to the emergency room with acute rapid heart palpitations. Patient complained of suddenly developing a rapid heartbeat short time prior to her ER presentation. She denies associated or accompanying signs and symptoms. She admits prior similar episodes related to her atrial fibrillation. She has not identified any aggravating or ameliorating factors for her palpitations. In the emergency room she was found to have atrial fibrillation with a rapid ventricular response with a rate in the 140s. She was initially treated with bolus doses of diltiazem 10 mg x 2 with transient improvement. She was subsequently placed on a diltiazem infusion and admitted to the hospital service on IMCU for further evaluation and treatment. Past Medical History Cardiac Medical History: Reports: Atrial Fibrillation, Congestive Heart Failure, Coronary Artery Disease - With 2 stents in the past, Hyperlipidema, Hypertension Pulmonary Medical History: Reports: Chronic Obstructive Pulmonary Disease (COPD), Pneumonia, Respiratory Failure Denies: Asthma, Tuberculosis EENT Medical History: Reports: Eyes - Chronic dry eyes, Nose - Allergic rhinitis Denies: Ears - Hearing aids Neurological Medical History: Denies: Hemorrhagic CVA, Ischemic CVA, Migraine, Seizures Endocrine Medical History: Reports: Diabetes Mellitus Type 2, Obesity Denies: Diabetes Mellitus Type 1, Hyperthyroidism, Hypothyroidism Renal/ Medical History: Reports: Chronic Kidney Disease Denies: Nephrolithiasis Malignancy Medical History: Reports: None GI Medical History: Reports: Gastroesophageal Reflux Disease Denies: Cirrhosis, Crohn's Disease, Hepatitis, Peptic Ulcer Disease, Ulcerative Colitis Musculoskeltal Medical History: Reports: Arthritis, Gout Skin Medical History: Reports: Psoriasis Denies: Eczema Psychiatric Medical History: Reports: Depression Denies: Alcohol Dependency, Bipolar Disorder, Substance Abuse, Tobacco Dependency Traumatic Medical History: Reports: None Hematology: Reports: Anemia - Chronic Denies: Bleeding Tendencies Infectious Medical History: Reports: None Past Surgical History Past Surgical History: Reports: Cardiac Catheterization, Coronary Stent - X2, Herniorrhaphy, Hysterectomy Social History Information Source: Patient Lives with: [facility] Smoking Status: Former Smoker Electronic Cigarette use?: No Frequency of Alcohol Use: None Hx Recreational Drug Use: No Drugs: None Hx Prescription Drug Abuse: No - Advance Directive Resuscitation Status: Full Code Surrogate healthcare decision maker:: Sharmin Boudreaux Family History Family History: CAD, DM Parental Family History Reviewed: Yes Children Family History Reviewed: No Sibling(s) Family History Reviewed.: Yes Medication/Allergy Home Medications: Apremilast [Otezla] 30 mg PO Q12 04/20/19 Ascorbic Acid [Vitamin C 500 mg Tablet] 500 mg PO DAILY 04/20/19 Aspirin [Ecotrin 81 mg EC Tablet] 81 mg PO DAILY 04/20/19 Atorvastatin Calcium [Lipitor 40 mg Tablet] 40 mg PO QHS 04/20/19 Benzonatate [Tessalon Perle 100 mg Capsule] 200 mg PO Q8HP PRN 04/20/19 Calcium Carbonate/Vitamin D3 [Calcium 600-Vit D3 400 Tablet] 2 tab PO DAILY 04/20/19 Cholecalciferol (Vitamin D3) [Vitamin D3 1000 Unit Tablet] 1,000 unit PO DAILY 04/20/19 Cyclosporine 0.05% Oph Emulsio [Restasis 0.05% Oph Emulsion Pf 0.4 ml] 1 drop OU DAILY 04/20/19 Ferrous Sulfate [Feosol 325 mg Tablet] 325 mg PO QAM 04/20/19 Fluticasone/Umeclidin/Vilanter [Trelegy 100-62.5-25 Mcg Ellipta 14 Dose/Dpi] 1 puff IH DAILY 04/20/19 Insulin Glargine,Hum.rec.anlog [Basaglar Kwikpen U-100] 20 unit SQ QHS 04/20/19 Insulin Lispro [Humalog Insulin (Lispro) 100 unit/mL] See Protocol SUBCUT .SLD SCALE 04/20/19 Lidocaine [Lidoderm 5% (700 mg) Transdermal Patch] 1 patch TP QAM 04/20/19 Mag Hydrox/Al Hydrox/Simeth [Maalox Plus Susp 30 Udcup] 20 ml PO DAILYP PRN 04/20/19 Melatonin [Melatonin 5 mg Tablet] 5 mg PO QHS 04/20/19 Mirtazapine 7.5 mg PO QHS 04/20/19 Pantoprazole Sodium [Protonix [address] Tablet] 40 mg PO Q6AM 04/20/19 Prednisone [Deltasone 5 mg Tablet] 5 mg PO QAM 04/20/19 Sertraline HCl [Zoloft 50 mg Tablet] 50 mg PO QAM 04/20/19 Tiotropium [place] [Spiriva Handihaler 5 Cap/Kit (18 Mcg/Cap)] 1 cap IH DAILY 04/20/19 Vit A/Vit C/Vit E/Zinc/Copper [Preservision Areds Softgel] 2 tab PO QAM 04/20/19 Levothyroxine Sodium [Synthroid 0.075 mg Tablet] 0.075 mg PO QAM 30 Days #30 tablet 04/25/19 Diltiazem HCl [Cardizem Cd 120 mg Capsule] 120 mg PO DAILY #30 cap.sr.24h 05/07/19 Furosemide [Lasix 20 mg Tablet] 20 mg PO QAM #30 tablet 05/07/19 Multivitamin [Tab-A-Deana (Multiple Vitamin) Tablet] 1 tab PO DAILY #90 tablet 05/07/19 Acetaminophen [Tylenol] 650 mg PO Q6HP PRN 05/21/19 Allopurinol [Zyloprim 300 mg Tablet] 300 mg PO DAILY 05/21/19 Fexofenadine HCl [Hyacinth] 180 mg PO DAILY 05/21/19 Metoprolol Succinate [Toprol Xl 50 mg Tab.sr] 50 mg PO Q12 #60 tab.sr.24h 05/21/19 Ondansetron HCl [Zofran 4 mg Tablet] 4 mg PO Q12HP PRN 05/21/19 Allergies/Adverse Reactions: adhesive tape Allergy (Verified 05/15/19 14:02) methotrexate [Methotrexate] Allergy (Verified 04/20/19 16:05) Penicillins Allergy (Verified 04/21/19 11:29) Review of Systems Constitutional: PRESENT: weight gain - She believes she has gained approximately 20 pounds over the last 10 days as fluid retention. ABSENT: chills, fever(s) Eyes: ABSENT: visual disturbances, other - Eye pain Ears: ABSENT: hearing changes, other - Ear pain Nose, Mouth, and Throat: ABSENT: mouth pain, sore throat Cardiovascular: PRESENT: edema - Patient complains of edema affecting her bilateral lower extremities with the left more involved than the right., palpitations. ABSENT: chest pain Respiratory: ABSENT: cough, dyspnea Gastrointestinal: ABSENT: abdominal pain, constipation, diarrhea, nausea, vomiting Genitourinary: ABSENT: dysuria, hematuria Musculoskeletal: ABSENT: back pain, joint swelling, muscle weakness Integumentary: ABSENT: pruritus, rash Neurological: ABSENT: confusion, convulsions, focal weakness, memory loss, syncope Psychiatric: ABSENT: anxiety, depression Endocrine: ABSENT: cold intolerance, heat intolerance Hematologic/Lymphatic: ABSENT: easy bleeding, easy bruising Allergic/Immunologic: ABSENT: seasonal rhinorrhea Physical Exam Vital Signs: Temp Pulse Resp BP Pulse Ox 97.9 F 21 H 130/84 H 100 05/31/19 19:33 05/31/19 20:04 05/31/19 20:04 05/31/19 20:04 Intake & Output 05/30/19 05/30/19 05/31/19 00:59 23:59 23:59 Weight 83.6 kg General appearance: PRESENT: no acute distress, cooperative, obese Head exam: PRESENT: atraumatic, normocephalic Eye exam: PRESENT: conjunctiva pink. ABSENT: conjunctival injection, scleral icterus Ear exam: PRESENT: normal external ear exam. ABSENT: bleeding, drainage Mouth exam: PRESENT: dry mucosa, neck supple Neck exam: ABSENT: thyromegaly, tracheal deviation Respiratory exam: PRESENT: decreased breath sounds - Decreased breath sounds at the bilateral bases, prolonged expiratory phas - Minimally prolonged expiratory phase throughout all lung dexter, rales - Fine rales present at the bilateral bases, symmetrical, unlabored, wheezes - Minimal expiratory wheezes throughout all lung dexter Cardiovascular exam: PRESENT: gallop - S4 gallop rhythm, irregular rhythm - Irregularly irregular rate and rhythm, systolic murmur - Crescendo decrescendo 3/6 systolic murmur heard best at the aortic root with radiation to the neck, tachycardia. ABSENT: clicks, rubs Pulses: PRESENT: normal carotid pulses, normal radial pulses. ABSENT: normal dorsalis pedis pul - Dorsalis pedis and posterior tibial pulses are obscured due to edema of the bilateral lower extremities Vascular exam: PRESENT: normal capillary refill. ABSENT: pallor GI/Abdominal exam: PRESENT: normal bowel sounds, soft Rectal exam: PRESENT: deferred Extremities exam: PRESENT: pedal edema - 4+ pitting edema of the right foot, 3+ pitting edema of the left foot, other - Patient has 3+ pitting edema of her left lower extremity from the upper thigh to the foot. Right lower extremity shows 2+ pitting edema from the mid thigh to the foot.. ABSENT: joint swelling Musculoskeletal exam: ABSENT: deformity, dislocation Neurological exam: PRESENT: alert, oriented to person, oriented to place, oriented to time, oriented to situation, CN II-XII grossly intact. ABSENT: motor sensory deficit Psychiatric exam: PRESENT: appropriate affect, normal mood Skin exam: PRESENT: dry, intact, rash - Mild psoriatic lesions noted, warm. ABSENT: jaundice, urticaria Results Laboratory Results: 05/31/19 20:00 05/31/19 20:00 05/31/19 05/31/19 20:00 20:00 WBC 9.7 RBC 3.02 L Hgb 8.9 L Hct 27.8 L MCV 92 MCH 29.5 MCHC 32.0 RDW 22.3 H Plt Count 345 Seg Neutrophils % Not Reportable Sodium 146.8 H Potassium 4.2 Chloride 108 H Carbon Dioxide 29 Anion Gap 10 BUN 49 H Creatinine 2.04 H Est GFR ( Amer) 28 L Glucose 156 H Calcium 9.2 Total Bilirubin 0.4 AST 24 Alkaline Phosphatase 92 Total Protein 6.6 Albumin 3.5 05/31/19 05/31/19 20:00 20:00 Creatine Kinase 24 L CK-MB (CK-2) 1.35 Troponin I 0.036 Impressions: Chest X-Ray 05/31/19 19:23 IMPRESSION: Increased basilar interstitial- airspace opacities and pleural effusions. Assessment and Plan - Diagnosis (1) Atrial fibrillation with RVR Is this a current diagnosis for this admission?: Yes (2) Chronic kidney disease, stage IV (severe) Is this a current diagnosis for this admission?: Yes (3) Hypertension Qualifiers: Hypertension type: essential hypertension Qualified Code(s): I10 - Essential (primary) hypertension Is this a current diagnosis for this admission?: Yes (4) Diabetes mellitus type 2 in obese Is this a current diagnosis for this admission?: Yes (5) Coronary artery disease Qualifiers: Coronary Disease-Associated Artery/Lesion type: [place] artery [place] vs. transplanted heart: [place] heart Associated angina: without angina Qualified Code(s): I25.10 - Atherosclerotic heart disease of [place] coronary artery without angina pectoris Is this a current diagnosis for this admission?: Yes (6) CHF (congestive heart failure) Qualifiers: Heart failure type: diastolic Heart failure chronicity: chronic Qualified Code(s): I50.32 - Chronic diastolic (congestive) heart failure Is this a current diagnosis for this admission?: Yes (7) Chronic obstructive pulmonary disease Qualifiers: COPD type: unspecified COPD Qualified Code(s): J44.9 - Chronic obstructive pulmonary disease, unspecified Is this a current diagnosis for this admission?: Yes (8) Hypothyroidism Qualifiers: Hypothyroidism type: unspecified Qualified Code(s): E03.9 - Hypothyroidism, unspecified Is this a current diagnosis for this admission?: Yes - Plan Summary Summary: Patient is admitted to the [facility] and will be treated initially with a diltiazem infusion titrated to control her tachycardia. Her blood pressure and other vital signs were monitored closely. Her medications will be adjusted as needed to provide control of her atrial fibrillation after she has been stabilized. She received routine supportive and symptomatic care. Her home medications will be adjusted for her stage III renal failure, increased peripheral edema and worsening congestive heart failure. This will include discontinuing the use of Otezla in a patient with chronic renal disease and initiating care with metoprolol succinate 100 mg p.o. daily, losartan 25 mg p.o. daily and use of Bumex 1 mg IV every 4 hours initially with adjustment in diuretic therapy made as the patient improves. A thyroid profile will be obtained to reassess her thyroid status since her thyroid replacement therapy began just 1 month ago. Serial cardiac enzymes will be obtained. She will be maintained on a diabetic diet and her usual diabetic therapy. Before meals and at bedtime Accu-Cheks will be obtained and sliding scale insulin will be used to cover hyperglycemia with a hypoglycemic protocol in place. A BNP and a hemoglobin A1c will be obtained. Patient otherwise be continued on her usual medications as appropriate for her ongoing chronic medical illnesses. - Time Time Spent with patient: 25-34 minutes Medications reviewed and adjusted accordingly: Yes Anticipated discharge: SNF - Inpatient Certification Based on my medical assessment, after consideration of the patient's comorbidities, presenting symptoms, or acuity I expect that the services needed warrant INPATIENT care.: Yes I certify that my determination is in accordance with my understanding of Medicare's requirements for reasonable and necessary INPATIENT services [42 CFR 412.3e].: Yes Medical Necessity: Significant Comorbidiites Make Outpatient Treatment Too Risky, Need Close Monitoring Due to Risk of Patient Decompensation, Need For Continuous Telemetry Monitoring, Risk of Complication if Not Cared For in Hospital
[2019-06-01] MEDS ORDERED: LEVOTHYROXINE SODIUM 0.075 MG TABLET PO SCH (06:00)
[2019-06-01 06:35] LABS: ABSOLUTE RETICS # 0.073 10^6/uL (0.028-0.122); HEMATOCRIT 21.4 % (36.0-47.0); MEAN CORPUSCULAR HEMOGLOBIN 29.1 pg (27.0-33.4); MEAN CORPUSCULAR HGB CONC 31.3 g/dL (32.0-36.0); MEAN CORPUSCULAR VOLUME 93 fl (80-97); PLATELET COUNT 364 10^3/uL (150-450); RED BLOOD COUNT 2.31 10^6/uL (3.72-5.28); RED CELL DISTRIBUTION WIDTH 22.6 % (11.5-14.0); RETICULOCYTE COUNT (AUTO) 3.17 % (0.66-2.85); WHITE BLOOD COUNT 10.6 10^3/uL (4.0-10.5)
[2019-06-01] MEDS: PANTOPRAZOLE SODIUM 40 MG TABLET.DR PO SCH (06:35)
[2019-06-01] MEDS: DILTIAZEM HCL/D5W 125 MG/125 ML RTUINJ IV PRN (06:36)
[2019-06-01 06:41] LABS: HEMOGLOBIN 6.7 g/dL (12.0-15.5)
[2019-06-01 06:45] LABS: ANION GAP 11 (5-19); BLOOD UREA NITROGEN 46 mg/dL (7-20); CALCIUM 9.2 mg/dL (8.4-10.2); CARBON DIOXIDE 29 mmol/L (22-30); CHLORIDE 105 mmol/L (98-107); CHOLESTEROL 114.08 mg/dL (0-200); GLUCOSE 132 mg/dL (75-110); IRON(TIBC) 47.5 ug/dL (37-170); TRIGLYCERIDES 112 mg/dL (<150)
[2019-06-01] MEDS: HEPARIN SOD (PORCINE) 5,000 UNIT/ML 1 ML VIAL SUBCUT SCH ×3 (06:47→21:30)
[2019-06-01 06:56] LABS: CREATINE KINASE MB 1.28 ng/mL (<4.55); DIRECT LDL 39 mg/dL (<100); TROPONIN I 0.046 ng/mL
[2019-06-01 07:06] LABS: FREE T3 2.85 pg/mL (2.77-5.27); FREE T4 (FREE THYROXINE) 0.7 ng/dL (0.78-2.19)
[2019-06-01 07:20] LABS: THYROID STIMULATING HORMONE 61.1 uIU/mL (0.47-4.68)
[2019-06-01 07:52] LABS: CREATINE KINASE < 20 U/L (30-135)
[2019-06-01 07:59] LABS: FOLATE > 20.00 ng/mL (>2.76)
[2019-06-01] MEDS: BUDESONIDE NEB 0.5 MG/2 ML AMPUL NEB SCH ×2 (08:12→20:08)
[2019-06-01] MEDS: INSULIN REG, HUMAN 100 UNIT/ML 3 ML VIAL (PYX) SUBCUT SCH ×4 (08:59→22:35)
[2019-06-01] MEDS: FERROUS SULFATE 325 MG TABLET PO SCH (09:14)
[2019-06-01] MEDS: MULTIVITAMIN TABLET PO SCH (09:14)
[2019-06-01] MEDS: LOSARTAN POTASSIUM 25 MG TABLET PO SCH (09:17)
[2019-06-01] MEDS: DOCUSATE SODIUM 100 MG CAPSULE PO SCH ×2 (09:20→18:09)
[2019-06-01] MEDS: ALLOPURINOL 100 MG TABLET PO SCH (09:21)
[2019-06-01] MEDS: BUMETANIDE INJ/PF 1 MG/4 ML SDV IV SCH ×4 (09:21→21:30)
[2019-06-01] MEDS: CHOLECALCIFEROL (D3) 1,000 UNIT (25 MCG) TABLET PO SCH (09:21)
[2019-06-01] MEDS: ASCORBIC ACID 500 MG TABLET PO SCH (09:23)
--- NOTE | 2019-06-01 09:42 | EKG REPORT ---
SEVERITY:- ABNORMAL ECG - ATRIAL FIBRILLATION EXTENSIVE ANTERIOR INFARCT, AGE INDETERMINATE : Confirmed by: Cathryn Lopez 01-Jun-2019 09:41:34
[2019-06-01] MEDS ORDERED: METOPROLOL SUCCINATE 50 MG TAB.SR.24H PO SCH (10:00)
--- NOTE | 2019-06-01 10:45 | XCELERA REPORT ---
[address] [facility] [address] Lower Extremity Venous Evaluation Procedure: Color flow and duplex imaging of the veins of the left lower extremity as well as the right Common Femoral vein. Right Sided Venous Evaluation The right common femoral vein is fully compressible. Spontaneous and phasic flow is present in the right common femoral vein. Left Sided Venous Evaluation Normal vessel filling wall to wall, compression and augmentation as well as Colour flow down to the infrageniculate veins. Interpretation Summary No duplex evidence of DVT or obstruction in the left lower extremity nor in the right Common Femoral vein. Name: PREETI ELIZABETH Junior Age: 78 yrs Gender: Female : 1940 Patient Status: Emergency Patient Location: ER Study Date: 05/31/2019 09:06 PM Reason For Study: LLE swelling Ordering Physician: HASEEB TATE Performed By: Rain Clarke : HASEEB TATE > Raf Steward
[2019-06-01] MEDS ORDERED: NORMAL SALINE 10 ML SDV (AFTER EACH USE) IV PRN (12:00)
[2019-06-01 14:42] LABS: CREATINE KINASE MB 1.33 ng/mL (<4.55); TROPONIN I 0.037 ng/mL
--- NOTE | 2019-06-01 14:48 | RADIOLOGY REPORT (SQ) ---
EXAM DESCRIPTION: PICC INSERTION; FLUORO/CV PLACEMENT; U/S GUIDE FOR VASCULAR ACCESS COMPLETED DATE/TIME: 06/01/2019 1:15 pm; 06/01/2019 11:37 am REASON FOR STUDY: Need for access; IV ACCESS COMPARISON: 05/31/2019 FLUOROSCOPY TIME: 1.17 minutes 2 images saved to PACS. TECHNIQUE: Fluoroscopic and ultrasound guided PICC placement. LIMITATIONS: None. PROCEDURE: After written consent and assessment were obtained, the patient was brought into the fluo roscopy room and placed supine on the table. Ultrasound evaluation of potential access sites were per formed. After successfully identifying a patent left basilic vein, the left arm was prepped and drape d in a sterile fashion along with the ultrasound probe. The entry site was anesthetized with 1% lidoc chely. A 21 gauge 7 cm needle was advanced through the skin and into the basilic vein under live ultra sound guidance. An ultrasound image was saved to PACS confirming access site. A .018 guide wire was then inserted through the needle and into the venous system. The needle was then removed and an 11 b lade scalpel was used to make a 1cm skin incision. A 5 fr peel-away sheath was advanced over the wir e and into the venous system. A measurement was then made using the existing wire and live fluoroscop ic guidance. The wire was then removed and trimmed. The PICC was advanced through the peel-away sheat h and into the venous system. The peel-away sheath was removed and the catheter was adhered to the pa tients arm with a stat lock. The catheter was then aspirated and flushed and a sterile bandage was pl aced over the access site. A fluoroscopic spot image was saved to PACS confirming the catheter tip w ithin the cavoatrial junction. IMPRESSION: SUCCESSFUL PLACEMENT OF A 5 FR DUAL LUMEN 41 CM PICC IN THE LEFT BASILIC VEIN. COMMENT: Patient medication list reviewed: Yes- Quality ID# [id number]:Eligible professional attests to doc umenting in the medical record they obtained, updated, or reviewed the patient's current medications. . Quality ID 145: Final reports for procedures using fluoroscopy that document radiation exposure erik richard, or exposure time and number of fluorographic images (if radiation exposure indices are not avail able) Quality ID #76: The patient was prepped and draped using maximum sterile barrier technique including cap, mask, sterile gown, sterile gloves, a large sterile sheet, hand hygiene, and 2% Chlorhexidine fo r cutaneous antisepsis. When ultrasound is used, sterile ultrasound techniques are followed requiring sterile gel and sterile probes. TECHNICAL DOCUMENTATION: JOB ID: [id number] [employer]- All Rights Reserved rev-12/12 Reading location - IP[facility]workstation name: [email or web address]
[2019-06-01] MEDS ORDERED: DILTIAZEM HCL 60 MG TABLET PO ONE (19:53)
--- NOTE | 2019-06-01 20:07 | PDOC PROGRESS REPORT ---
Subjective Progress Note for:: 06/01/19 Subjective:: The patient is an 78-year-old female with a past medical history of atrial fibrillation, CHF, CAD, hyperlipidemia, hypertension, pulmonary hypertension, COPD, chronic respiratory failure (home O2 dependent), DM 2, obesity, hypothyroidism, CKD, GERD, arthritis, gout, depression, and chronic anemia who is well-known to our service and admitted 05/31/2019 for Atrial fibrillation with RVR. Patient was seen on afternoon rounds with multiple friends and family members rossy villeda. She was found sitting up to the recliner, comfortably, on her baseline oxygen requirement of 2 L/min. She reports that she is feeling much better today as compared to this afternoon. She reports that her chest discomfort and palpitations have resolved entirely. She reports that her dyspnea is much improved. She is concerned by her continued bilateral lower extremity edema. Today she has discussed with her family members her interest in possible hospice services at time of discharge. She does asked to discuss this further with family members and follow-up with me tomorrow to let me know if she has made a definitive decision. Please see separate ACP note. She denies fever, chills, chest pain, palpitations, dyspnea, orthopnea, abdominal pain, nausea vomiting and diarrhea. No questions or concerns at this time. No concerns per nursing. Reason For Visit: ATRIAL FIBRILLATION WITH RAPID VENTRICULAR Physical Exam Vital Signs: Temp Pulse Resp BP Pulse Ox 98.7 F 99 20 130/81 H 99 06/01/19 17:59 06/01/19 17:59 06/01/19 17:59 06/01/19 17:59 06/01/19 17:59 Intake & Output 05/31/19 06/01/19 06/02/19 06:59 06:59 06:59 Intake Total 407 806 Output Total 350 Balance 407 456 Weight 83.7 kg General appearance: PRESENT: no acute distress, cooperative, obese, well- developed, well-nourished Head exam: PRESENT: atraumatic, normocephalic Eye exam: PRESENT: conjunctiva pink, EOMI, PERRLA. ABSENT: scleral icterus Ear exam: PRESENT: normal external ear exam Mouth exam: PRESENT: moist, tongue midline Neck exam: ABSENT: carotid bruit, JVD, lymphadenopathy, thyromegaly Respiratory exam: PRESENT: clear to auscultation kaylee, symmetrical, unlabored, other - Baseline oxygen requirement. ABSENT: rales, rhonchi, wheezes Cardiovascular exam: PRESENT: irregular rhythm, +S1, +S2. ABSENT: diastolic murmur, rubs, systolic murmur Pulses: PRESENT: normal dorsalis pedis pul Vascular exam: PRESENT: normal capillary refill GI/Abdominal exam: PRESENT: normal bowel sounds, soft. ABSENT: distended, guarding, mass, organolmegaly, rebound, tenderness Rectal exam: PRESENT: deferred Extremities exam: PRESENT: full ROM, pedal edema - +2, pitting, edema bilaterally. ABSENT: calf tenderness, clubbing Neurological exam: PRESENT: alert, awake, oriented to person, oriented to place, oriented to time, oriented to situation, CN II-XII grossly intact. ABSENT: motor sensory deficit Psychiatric exam: PRESENT: appropriate affect, normal mood. ABSENT: homicidal ideation, suicidal ideation Skin exam: PRESENT: dry, intact, warm. ABSENT: cyanosis, rash Results Laboratory Results: 06/01/19 05:50 06/01/19 05:50 05/31/19 05/31/19 06/01/19 20:00 20:00 05:50 WBC 9.7 RBC 3.02 L Hgb 8.9 L Hct 27.8 L MCV 92 MCH 29.5 MCHC 32.0 RDW 22.3 H Plt Count 345 Seg Neutrophils % Not Reportable Retic Count (auto) Sodium 146.8 H 145.2 H Potassium 4.2 4.0 Chloride 108 H 105 Carbon Dioxide 29 29 Anion Gap 10 11 BUN 49 H 46 H Creatinine 2.04 H 2.04 H Est GFR ( Amer) 28 L 28 L Glucose 156 H 132 H Calcium 9.2 9.2 Magnesium 1.9 Iron 47.5 TIBC 311 % Saturation 15 Ferritin 135.00 Total Bilirubin 0.4 AST 24 Alkaline Phosphatase 92 Total Protein 6.6 Albumin 3.5 Triglycerides 112 Cholesterol 114.08 LDL Cholesterol Direct 39 VLDL Cholesterol 22.0 HDL Cholesterol 53 Vitamin B12 974.0 H Folate > 20.00 TSH Free T4 Free T3 pg/mL Blood Type Antibody Screen 06/01/19 06/01/19 06/01/19 05:50 05:50 13:56 WBC 10.6 H RBC 2.31 L Hgb 6.7 L D Hct 21.4 L MCV 93 MCH 29.1 MCHC 31.3 L RDW 22.6 H Plt Count 364 Seg Neutrophils % Retic Count (auto) 3.17 H Sodium Potassium Chloride Carbon Dioxide Anion Gap BUN Creatinine Est GFR ( Amer) Glucose Calcium Magnesium Iron TIBC % Saturation Ferritin Total Bilirubin AST Alkaline Phosphatase Total Protein Albumin Triglycerides Cholesterol LDL Cholesterol Direct VLDL Cholesterol HDL Cholesterol Vitamin B12 Folate TSH 61.10 H Free T4 0.70 L Free T3 pg/mL 2.85 Blood Type O NEGATIVE Antibody Screen NEGATIVE 05/31/19 05/31/19 05/31/19 20:00 20:00 23:34 Creatine Kinase 24 L CK-MB (CK-2) 1.35 Troponin I 0.036 0.040 NT-Pro-B Natriuret Pep 05/31/19 06/01/19 06/01/19 23:34 05:50 05:50 Creatine Kinase < 20 L CK-MB (CK-2) 1.28 Troponin I 0.046 NT-Pro-B Natriuret Pep 5100 H 06/01/19 06/01/19 13:56 13:56 Creatine Kinase 22 L CK-MB (CK-2) 1.33 Troponin I 0.037 NT-Pro-B Natriuret Pep Impressions: Chest X-Ray 05/31/19 19:23 IMPRESSION: Increased basilar interstitial- airspace opacities and pleural effusions. Guidance Fluoroscopy 06/01/19 00:00 IMPRESSION: SUCCESSFUL PLACEMENT OF A 5 FR DUAL LUMEN 41 CM PICC IN THE LEFT BASILIC VEIN. Interventional Vascular Procedure 06/01/19 00:00 IMPRESSION: SUCCESSFUL PLACEMENT OF A 5 FR DUAL LUMEN 41 CM PICC IN THE LEFT BASILIC VEIN. PICC Line Insertion 06/01/19 00:00 IMPRESSION: SUCCESSFUL PLACEMENT OF A 5 FR DUAL LUMEN 41 CM PICC IN THE LEFT BASILIC VEIN. Assessment and Plan - Diagnosis (1) Atrial fibrillation with RVR Is this a current diagnosis for this admission?: Yes Plan: Resolved; patient remains in atrial fibrillation but now rate controlled in the low 90s to low 100s. This despite the diltiazem drip having been discontinued for several hours due to loss of IV access. The patient has been admitted to [facility] on continuous cardiac telemetry. The patient is not a candidate for chronic anticoagulation secondary to anemia requiring multiple and frequent blood transfusions. Will provide a one-time dose of diltiazem 60 mg p.o. this evening followed by resumption of her home dose diltiazem CD 120 mg each morning. We will resume her home dose metoprolol XL 25 mg p.o. twice daily. (2) CHF (congestive heart failure) Qualifiers: Heart failure type: diastolic Heart failure chronicity: chronic Qualified Code(s): I50.32 - Chronic diastolic (congestive) heart failure Is this a current diagnosis for this admission?: Yes Plan: Echocardiogram (10/20/2018) revealed LVEF 65% with moderate RV enlargement, mild to moderate dilatated right atrium, mild to moderate and severe pulmonary hypertension. Left ventricular diastolic function cannot be assessed secondary to atrial fibrillation. proBNP is elevated 5100; slightly elevated compared to her previous admission when she was in the 3000s. This likely secondary to atrial fibrillation with RVR. Cardiac diet. Daily weights, strict MARY's. Continue home dose resume home dose diltiazem, metoprolol, aspirin and statin therapy. Start losartan Continue to diurese with IV Bumex. (3) Chronic kidney disease, stage IV (severe) Is this a current diagnosis for this admission?: Yes Plan: Stable and at baseline. We will avoid nephrotoxic medications as able. Optimize cardiac output. Monitor with daily chemistries. Long discussion with patient today regarding goals of care; please see separate ACP note. She is not inclined to start renal replacement therapy if becomes indicated. (4) Chronic obstructive pulmonary disease Qualifiers: COPD type: unspecified COPD Qualified Code(s): J44.9 - Chronic obstructive pulmonary disease, unspecified Is this a current diagnosis for this admission?: Yes Plan: Stable and without exacerbation at this time. Continue home dose trilogy and Spiriva. Continue home dose daily prednisone therapy. Continue as needed nebulizer treatments. Supplemental oxygen as needed to maintain saturations greater than 89%. No indications for stress dose steroids or antibiotics at this time. (5) Coronary artery disease Qualifiers: Coronary Disease-Associated Artery/Lesion type: [place] artery [place] vs. transplanted heart: [place] heart Associated angina: without angina Qualified Code(s): I25.10 - Atherosclerotic heart disease of [place] coronary artery without angina pectoris Is this a current diagnosis for this admission?: Yes Plan: Daily aspirin, statin, and antihypertensives as above. Serial troponins are indeterminate but stable x4. Continue to monitor on telemetry. No chest discomfort at this time. (6) Hypertension Qualifiers: Hypertension type: essential hypertension Qualified Code(s): I10 - Essential (primary) hypertension Is this a current diagnosis for this admission?: Yes Plan: Blood pressures are acceptable at present. Antihypertensives as above. Cardiac diet. (7) Diabetes mellitus type 2 in obese Is this a current diagnosis for this admission?: Yes Plan: Cardiac/consistent carb diet. Accu-Cheks before meals and at bedtime with insulin for sliding scale coverage. Hypoglycemia protocol in place. (8) Hypothyroidism Qualifiers: Hypothyroidism type: unspecified Qualified Code(s): E03.9 - Hypothyroidism, unspecified Is this a current diagnosis for this admission?: Yes Plan: TSH elevated to 61, free T4 low at 70, free T3 2.5. Continue levothyroxine 100 mcg daily. (9) Anemia Qualifiers: Anemia type: due to chronic kidney disease Chronic kidney disease stage: stage 3 (moderate) Qualified Code(s): N18.3 - Chronic kidney disease, stage 3 (moderate); D63.1 - Anemia in chronic kidney disease Is this a current diagnosis for this admission?: Yes Plan: Multifactorial secondary to chronic kidney disease, multiple positive occult stools (patient declines further evaluation), and poor nutritional status. Anemia panel is benign. Hemoglobin of 8.9; trended down to 6.7. To receive 1 unit PRBC today. - Plan Summary Summary: Patient is admitted to the [facility] and will be treated initially with a diltiazem infusion titrated to control her tachycardia. Her blood pressure and other vital signs were monitored closely. Her medications will be adjusted as needed to provide control of her atrial fibrillation after she has been stabilized. She received routine supportive and symptomatic care. Her home medications will be adjusted for her stage III renal failure, increased peripheral edema and worsening congestive heart failure. This will include discontinuing the use of Otezla in a patient with chronic renal disease and initiating care with metoprolol succinate 100 mg p.o. daily, losartan 25 mg p.o. daily and use of Bumex 1 mg IV every 4 hours initially with adjustment in diuretic therapy made a s the patient improves. A thyroid profile will be obtained to reassess her thyroid status since her thyroid replacement therapy began just 1 month ago. Serial cardiac enzymes will be obtained. She will be maintained on a diabetic diet and her usual diabetic therapy. Before meals and at bedtime Accu-Cheks will be obtained and sliding scale insulin will be used to cover hyperglycemia with a hypoglycemic protocol in place. A BNP and a hemoglobin A1c will be obtained. Patient otherwise be continued on her usual medications as appropriate for her ongoing chronic medical illnesses. - Time Time Spent with patient: 35 or more minutes Medications reviewed and adjusted accordingly: Yes Anticipated discharge: SNF - Resident at [facility] Within: within 72 hours
[2019-06-01] MEDS: MIRTAZAPINE 15 MG TABLET PO SCH (21:29)
[2019-06-01] MEDS: ATORVASTATIN CALCIUM 40 MG TABLET PO SCH (21:30)
[2019-06-01] MEDS: METOPROLOL SUCCINATE 25 MG TAB.SR.24H PO SCH (21:30)
[2019-06-01] MEDS: MELATONIN 5 MG TABLET PO SCH (21:30)
[2019-06-01] MEDS: NORMAL SALINE 10 ML SDV (SCHEDULED) IV SCH (21:32)
[2019-06-01 22:13] LABS: ABSOLUTE BASOPHILS # (AUTO) 0.1 10^3/uL (0.0-0.2); ABSOLUTE EOSINOPHILS # (AUTO) 0.2 10^3/uL (0.0-0.6); ABSOLUTE LYMPHOCYTES (AUTO) 0.8 10^3/uL (0.5-4.7); ABSOLUTE MONOCYTES (AUTO) 0.7 10^3/uL (0.1-1.4); ABSOLUTE NEUT (AUTO) 7.7 10^3/uL (1.7-8.2); BASOPHILS % (AUTO) 0.7 % (0-2); EOSINOPHILS % (AUTO) 1.9 % (0-6); LYMPHOCYTES % (AUTO) 8.8 % (13-45); MEAN CORPUSCULAR HEMOGLOBIN 29.4 pg (27.0-33.4); MEAN CORPUSCULAR HGB CONC 31.9 g/dL (32.0-36.0); MEAN CORPUSCULAR VOLUME 92 fl (80-97); MONOCYTES % (AUTO) 7.8 % (3-13); PLATELET COUNT 299 10^3/uL (150-450); RED BLOOD COUNT 3.26 10^6/uL (3.72-5.28); RED CELL DISTRIBUTION WIDTH 20.3 % (11.5-14.0); SEGMENTED NEUTROPHILS % (AUTO) 80.8 % (42-78); TOTAL CELLS COUNTED % (AUTO) 100 %; WHITE BLOOD COUNT 9.5 10^3/uL (4.0-10.5)
[2019-06-01 22:17] LABS: HEMOGLOBIN 9.6 g/dL (12.0-15.5)
[2019-06-01] MEDS: CALCIUM CARBONATE 250 MG/VITAMIN D3 125 UNIT TABLET PO SCH (22:36)
[2019-06-01 22:47] LABS: CREATINE KINASE MB 1.34 ng/mL (<4.55)
[2019-06-01 22:51] LABS: TROPONIN I 0.042 ng/mL
[2019-06-02] MEDS: IPRATROPIUM BROMIDE 0.02% NEB 0.5 MG/2.5 ML AMPUL NEB SCH ×4 (00:25→23:56)
[2019-06-02] MEDS: LEVALBUTEROL HCL NEB 1.25 MG/3 ML AMPUL NEB SCH ×4 (00:25→23:56)
[2019-06-02] MEDS: BUMETANIDE INJ/PF 1 MG/4 ML SDV IV SCH ×2 (02:09→06:23)
[2019-06-02] MEDS ORDERED: LEVOTHYROXINE SODIUM 0.075 MG TABLET PO SCH (06:00)
[2019-06-02] MEDS: PANTOPRAZOLE SODIUM 40 MG TABLET.DR PO SCH (06:23)
[2019-06-02] MEDS: HEPARIN SOD (PORCINE) 5,000 UNIT/ML 1 ML VIAL SUBCUT SCH ×3 (06:23→21:27)
[2019-06-02] MEDS: LEVOTHYROXINE SODIUM 0.075 MG TABLET PO SCH (06:24)
[2019-06-02 07:17] LABS: HEMATOCRIT 30.2 % (36.0-47.0); HEMOGLOBIN 9.8 g/dL (12.0-15.5); MEAN CORPUSCULAR HEMOGLOBIN 29.8 pg (27.0-33.4); MEAN CORPUSCULAR HGB CONC 32.3 g/dL (32.0-36.0); MEAN CORPUSCULAR VOLUME 92 fl (80-97); PLATELET COUNT 293 10^3/uL (150-450); RED BLOOD COUNT 3.28 10^6/uL (3.72-5.28); RED CELL DISTRIBUTION WIDTH 20.8 % (11.5-14.0); WHITE BLOOD COUNT 8.7 10^3/uL (4.0-10.5)
[2019-06-02] MEDS: DILTIAZEM HCL 120 MG CAP.SR.24H PO SCH (08:23)
[2019-06-02] MEDS: LORATADINE 10 MG TABLET PO SCH (08:24)
[2019-06-02] MEDS: INSULIN REG, HUMAN 100 UNIT/ML 3 ML VIAL (PYX) SUBCUT SCH ×4 (08:27→21:36)
[2019-06-02] MEDS: PREDNISONE 5 MG TABLET PO SCH (08:27)
[2019-06-02 09:03] LABS: ANION GAP 8 (5-19); BLOOD UREA NITROGEN 44 mg/dL (7-20); CALCIUM 8.7 mg/dL (8.4-10.2); CARBON DIOXIDE 31 mmol/L (22-30); CHLORIDE 107 mmol/L (98-107); GLUCOSE 98 mg/dL (75-110)
[2019-06-02] MEDS: BUDESONIDE NEB 0.5 MG/2 ML AMPUL NEB SCH ×2 (09:33→20:44)
[2019-06-02] MEDS ORDERED: CALCIUM CARBONATE PO SCH (10:00)
[2019-06-02] MEDS ORDERED: VITAMIN D3 PO SCH (10:00)
[2019-06-02] MEDS ORDERED: (PENDING PHARMACY ID) (Tiotropium Bromide [Spiriva Handihaler 5 Cap/Kit (18 Mcg/Cap)] 1 CA IH SCH (10:00)
[2019-06-02] MEDS ORDERED: [UNRECOGNIZED DRUG - OTHER] PO SCH (10:00)
[2019-06-02] MEDS: DOCUSATE SODIUM 100 MG CAPSULE PO SCH ×2 (10:24→18:17)
[2019-06-02] MEDS: LOSARTAN POTASSIUM 25 MG TABLET PO SCH (10:24)
[2019-06-02] MEDS: FERROUS SULFATE 325 MG TABLET PO SCH (10:25)
[2019-06-02] MEDS: ASPIRIN 81 MG TABLET, ENT COATED PO SCH (10:25)
[2019-06-02] MEDS: UMECLIDINIUM BROMIDE 62.5 MCG/DOSE IH SCH (10:26)
[2019-06-02] MEDS: NORMAL SALINE 10 ML SDV (SCHEDULED) IV SCH ×2 (10:27→21:27)
[2019-06-02] MEDS: CALCIUM CARBONATE 250 MG/VITAMIN D3 125 UNIT TABLET PO SCH ×2 (10:27→21:27)
[2019-06-02] MEDS: ASCORBIC ACID 500 MG TABLET PO SCH (10:28)
[2019-06-02] MEDS: CHOLECALCIFEROL (D3) 1,000 UNIT (25 MCG) TABLET PO SCH (10:28)
[2019-06-02] MEDS: METOPROLOL SUCCINATE 25 MG TAB.SR.24H PO SCH ×2 (10:28→21:27)
[2019-06-02] MEDS: MULTIVITAMIN TABLET PO SCH (10:28)
[2019-06-02] MEDS: ALLOPURINOL 100 MG TABLET PO SCH (10:29)
[2019-06-02] MEDS: LIDOCAINE 5% (700 MG) TRANSDERMAL ADH..PATCH TP SCH (10:30)
[2019-06-02] MEDS: FLUTICASONE/UMECLIDIN/VILANTER 100-62.5-25 MCG/DOSE IH SCH (10:33)
[2019-06-02] MEDS: CYCLOSPORINE 0.05% OPH EMULSIO 0.4 ML DROPERETTE OU SCH (10:33)
--- NOTE | 2019-06-02 15:51 | ADVANCED CARE ---
- Diagnosis (1) Atrial fibrillation with RVR Diagnosis Current: Yes (2) CHF (congestive heart failure) Diagnosis Current: Yes (3) Chronic kidney disease, stage IV (severe) Diagnosis Current: Yes (4) Chronic obstructive pulmonary disease Diagnosis Current: Yes (5) Coronary artery disease Diagnosis Current: Yes (6) Hypertension Diagnosis Current: Yes (7) Diabetes mellitus type 2 in obese Diagnosis Current: Yes (8) Hypothyroidism Diagnosis Current: Yes (9) Anemia Diagnosis Current: Yes Attendance: The patient. Resuscitation Status: Do Not Resuscitate Discussion: Long discussion had regarding the patient's chronic medical conditions, acute medical issues, frequent admissions, and overall poor prognosis. Ms. Tate indicates that she has been considering hospice services seriously; states that she is come to believe in her heart that it is up to God to determine how long she would live and that she is not certain that she wants to continue trying to prolong things. She does advise that she got into a disagreement with her brother over this earlier today. She requests more time to consider hospice prior to committing to discharge with hospice services. We did briefly discuss that she may be inpatient hospice appropriate which would allow for her to potentially move to an inpatient hospice facility. As her brother lives in [place], this may facilitate them being able to see each other on a more frequent basis. She does also know that there is a potential that she could return to SNF for long-term care with hospice services following on a monthly and as needed basis. Ms. Tate does tell me that she wants conservative medical interventions only at this time. She is agreeable to continuing with the planned transfusion of 1 unit today; is guarded regarding potential for additional blood products following that. She does advise that she is not interested in any ICU admissions, pressor support, respiratory support, or dialysis if should be required in the future. Care Planning Goals: Patient remains a DNR/DNI. Patient would like conservative medical interventions this admission. She declines additional work up regarding her chronic, and gradually worsening, anemia (i.e. multiple positive occult stools but declines EGD/Colonoscopy). Reviewing MOST form with family/friends. Strongly leaning toward discharge with hospice services. Patient may qualify for inpatient hospice services given her recent need for multiple blood transfusions. Will re-consult Palliative Care/Hospice services. Discharge planning is consulted. Document(s) Completed: MOST form left for patient and family/friend review; will need to complete prior to discharge. Time Spent: 40 min
--- NOTE | 2019-06-02 16:24 | PDOC PROGRESS REPORT ---
Subjective Progress Note for:: 06/02/19 Subjective:: The patient is an 78-year-old female with a past medical history of atrial fibrillation, CHF, CAD, hyperlipidemia, hypertension, pulmonary hypertension, COPD, chronic respiratory failure (home O2 dependent), DM 2, obesity, hypothyroidism, CKD, GERD, arthritis, gout, depression, and chronic anemia who is well-known to our service and admitted 05/31/2019 for Atrial fibrillation with RVR. Patient was seen on morning rounds. She was found sitting up in bed, comfortab ly, on her baseline oxygen requirement of 2 L/min. She reports that she is feeling well today. She reports that her chest discomfort and palpitations have resolved entirely. She reports that her dyspnea is much improved. She is concerned by her continued bilateral pedal edema; does note slight tenderness and warmth to right foot. She denies fever, chills, chest pain, palpitations, dyspnea, orthopnea, abdominal pain, nausea vomiting and diarrhea. No questions or concerns at this time. No reported concerns per nursing. Reason For Visit: ATRIAL FIBRILLATION WITH RAPID VENTRICULAR Physical Exam Vital Signs: Temp Pulse Resp BP Pulse Ox 97.4 F 82 16 138/69 H 99 06/02/19 12:09 06/02/19 12:09 06/02/19 12:09 06/02/19 12:09 06/02/19 12:09 Intake & Output 06/01/19 06/02/19 06/03/19 06:59 06:59 06:59 Intake Total 407 906 Output Total 550 Balance 407 356 Weight 83.7 kg 83.9 kg General appearance: PRESENT: no acute distress, cooperative, hard of hearing, obese, well-developed, well-nourished Head exam: PRESENT: atraumatic, normocephalic Eye exam: PRESENT: conjunctiva pink, EOMI, PERRLA. ABSENT: scleral icterus Mouth exam: PRESENT: moist, tongue midline Respiratory exam: PRESENT: clear to auscultation kaylee, symmetrical, unlabored, other - Baseline oxygen requirement. ABSENT: rales, rhonchi, wheezes Cardiovascular exam: PRESENT: irregular rhythm, +S1, +S2. ABSENT: diastolic murmur, rubs, systolic murmur Vascular exam: PRESENT: normal capillary refill GI/Abdominal exam: PRESENT: normal bowel sounds, soft. ABSENT: distended, guarding, mass, organolmegaly, rebound, tenderness Rectal exam: PRESENT: deferred Extremities exam: PRESENT: full ROM, pedal edema - +1, pitting, pedal edema bilaterally. ABSENT: calf tenderness, clubbing Neurological exam: PRESENT: alert, awake, oriented to person, oriented to place, oriented to time, oriented to situation, CN II-XII grossly intact. ABSENT: motor sensory deficit Psychiatric exam: PRESENT: appropriate affect, normal mood. ABSENT: homicidal ideation, suicidal ideation Skin exam: PRESENT: dry, erythema - Erythema, warmth, tenderness to right foot, intact, warm. ABSENT: cyanosis, rash Results Laboratory Results: 06/02/19 06:32 06/02/19 08:22 06/01/19 06/02/19 06/02/19 21:42 06:32 06:32 WBC 9.5 8.7 RBC 3.26 L 3.28 L Hgb 9.6 L D 9.8 L Hct 30.0 L 30.2 L MCV 92 92 MCH 29.4 29.8 MCHC 31.9 L 32.3 RDW 20.3 H 20.8 H Plt Count 299 293 Seg Neutrophils % 80.8 H Sodium Potassium Chloride Carbon Dioxide Anion Gap BUN Creatinine Est GFR ( Amer) Glucose Calcium Magnesium 1.7 06/02/19 08:22 WBC RBC Hgb Hct MCV MCH MCHC RDW Plt Count Seg Neutrophils % Sodium 146.3 H Potassium 4.0 Chloride 107 Carbon Dioxide 31 H Anion Gap 8 BUN 44 H Creatinine 2.07 H Est GFR ( Amer) 28 L Glucose 98 Calcium 8.7 Magnesium 05/31/19 05/31/19 05/31/19 20:00 20:00 23:34 Creatine Kinase 24 L CK-MB (CK-2) 1.35 Troponin I 0.036 0.040 NT-Pro-B Natriuret Pep 05/31/19 06/01/19 06/01/19 23:34 05:50 05:50 Creatine Kinase < 20 L CK-MB (CK-2) 1.28 Troponin I 0.046 NT-Pro-B Natriuret Pep 5100 H 06/01/19 06/01/19 06/01/19 13:56 13:56 21:42 Creatine Kinase 22 L 24 L CK-MB (CK-2) 1.33 Troponin I 0.037 NT-Pro-B Natriuret Pep 06/01/19 21:42 Creatine Kinase CK-MB (CK-2) 1.34 Troponin I 0.042 NT-Pro-B Natriuret Pep Impressions: Chest X-Ray 05/31/19 19:23 IMPRESSION: Increased basilar interstitial- airspace opacities and pleural effusions. Guidance Fluoroscopy 06/01/19 00:00 IMPRESSION: SUCCESSFUL PLACEMENT OF A 5 FR DUAL LUMEN 41 CM PICC IN THE LEFT BASILIC VEIN. Interventional Vascular Procedure 06/01/19 00:00 IMPRESSION: SUCCESSFUL PLACEMENT OF A 5 FR DUAL LUMEN 41 CM PICC IN THE LEFT BASILIC VEIN. PICC Line Insertion 06/01/19 00:00 IMPRESSION: SUCCESSFUL PLACEMENT OF A 5 FR DUAL LUMEN 41 CM PICC IN THE LEFT BASILIC VEIN. Assessment and Plan - Diagnosis (1) Atrial fibrillation with RVR Is this a current diagnosis for this admission?: Yes Plan: Resolved; patient remains in atrial fibrillation but now rate controlled in the low 90s to low 100s. Episode was likely precipitated by acute anemia. This despite the diltiazem drip having been discontinued for several hours due to loss of IV access. The patient has been admitted to [facility] on continuous cardiac telemetry. The patient is not a candidate for chronic anticoagulation secondary to anemia requiring multiple and frequent blood transfusions. Continue her home dose diltiazem CD 120 mg each morning. Continue home dose metoprolol XL 25 mg p.o. twice daily. (2) CHF (congestive heart failure) Qualifiers: Heart failure type: diastolic Heart failure chronicity: chronic Qualified Code(s): I50.32 - Chronic diastolic (congestive) heart failure Is this a current diagnosis for this admission?: Yes Plan: Echocardiogram (10/20/2018) revealed LVEF 65% with moderate RV enlargement, mild to moderate dilatated right atrium, mild to moderate and severe pulmonary hypertension. Left ventricular diastolic function cannot be assessed secondary to atrial fibrillation. proBNP is elevated 5100; slightly elevated compared to her previous admission when she was in the 3000s. This likely secondary to atrial fibrillation with RVR. Cardiac diet. Daily weights, strict I&O's. Continue home dose resume home dose diltiazem, metoprolol, aspirin and statin therapy. Continue losartan Transition from IV Bumex to p.o. furosemide; 40 mg twice daily (normally takes 20 mg twice daily) (3) Chronic kidney disease, stage IV (severe) Is this a current diagnosis for this admission?: Yes Plan: Stable and at baseline. We will avoid nephrotoxic medications as able. Optimize cardiac output. Monitor with daily chemistries. (4) Chronic obstructive pulmonary disease Qualifiers: COPD type: unspecified COPD Qualified Code(s): J44.9 - Chronic obstructive pulmonary disease, unspecified Is this a current diagnosis for this admission?: Yes Plan: Stable and without exacerbation at this time. Continue home dose trilogy and Spiriva. Continue home dose daily prednisone therapy. Continue as needed nebulizer treatments. Supplemental oxygen as needed to maintain saturations greater than 89%. No indications for stress dose steroids or antibiotics at this time. (5) Coronary artery disease Qualifiers: Coronary Disease-Associated Artery/Lesion type: [place] artery [place] vs. transplanted heart: [place] heart Associated angina: without angina Qualified Code(s): I25.10 - Atherosclerotic heart disease of [place] coronary artery without angina pectoris Is this a current diagnosis for this admission?: Yes Plan: Daily aspirin, statin, and antihypertensives as above. Serial troponins are indeterminate but stable x4. Continue to monitor on telemetry. No chest discomfort at this time. (6) Hypertension Qualifiers: Hypertension type: essential hypertension Qualified Code(s): I10 - Essential (primary) hypertension Is this a current diagnosis for this admission?: Yes Plan: Blood pressures are acceptable at present. Antihypertensives as above. Cardiac diet. (7) Diabetes mellitus type 2 in obese Is this a current diagnosis for this admission?: Yes Plan: Cardiac/consistent carb diet. Accu-Cheks before meals and at bedtime with insulin for sliding scale coverage. Hypoglycemia protocol in place. (8) Hypothyroidism Qualifiers: Hypothyroidism type: unspecified Qualified Code(s): E03.9 - Hypothyroidism, unspecified Is this a current diagnosis for this admission?: Yes Plan: TSH elevated to 61, free T4 low at 70, free T3 2.5. Continue levothyroxine 100 mcg daily. (9) Anemia Qualifiers: Anemia type: due to chronic kidney disease Chronic kidney disease stage: stage 3 (moderate) Qualified Code(s): N18.3 - Chronic kidney disease, stage 3 (moderate); D63.1 - Anemia in chronic kidney disease Is this a current diagnosis for this admission?: Yes Plan: Multifactorial secondary to chronic kidney disease, multiple positive occult stools (patient declines further evaluation), and poor nutritional status. Anemia panel is benign. Hemoglobin of 8.9-> 6.7 -> 9.6 s/p 1 unit PRBC-> 9.8 Will continue to monitor with daily CBC. Patient has indicated that she would likely decline further transfusion recommendations. Have provided MOST form for review and will continue goals of care discussions. Of note; patient has required 7 units PRBC over last 18 months during 6 separate admissions for ABLA/CHF exacerbations. (10) Cellulitis Qualifiers: Site of cellulitis of extremity: lower extremity Laterality: left Is this a current diagnosis for this admission?: Yes Plan: Slight erythema, edema, and tenderness to right foot. Slight abrasion noted to dorsal aspect of foot. No drainage present. Keep elevated. ZOYA hose. Start renally dosed keflex. - Time Time Spent with patient: 25-34 minutes Medications reviewed and adjusted accordingly: Yes Anticipated discharge: SNF Within: within 24 hours
[2019-06-02] MEDS ORDERED: FUROSEMIDE 20 MG TABLET PO SCH ×2 (18:00)
[2019-06-02] MEDS: FUROSEMIDE 40 MG TABLET PO SCH (18:16)
[2019-06-02] MEDS: CEPHALEXIN 250 MG CAPSULE PO SCH (18:17)
[2019-06-02] MEDS: MIRTAZAPINE 15 MG TABLET PO SCH (21:26)
[2019-06-02] MEDS: MELATONIN 5 MG TABLET PO SCH (21:26)
[2019-06-02] MEDS: ATORVASTATIN CALCIUM 40 MG TABLET PO SCH (21:26)
[2019-06-03] MEDS: CEPHALEXIN 250 MG CAPSULE PO SCH ×2 (06:40→14:29)
[2019-06-03] MEDS: LEVOTHYROXINE SODIUM 0.075 MG TABLET PO SCH (06:40)
[2019-06-03] MEDS: PANTOPRAZOLE SODIUM 40 MG TABLET.DR PO SCH (06:40)
[2019-06-03] MEDS: HEPARIN SOD (PORCINE) 5,000 UNIT/ML 1 ML VIAL SUBCUT SCH ×2 (06:50→13:41)
[2019-06-03] MEDS: PREDNISONE 5 MG TABLET PO SCH (08:25)
[2019-06-03] MEDS: DILTIAZEM HCL 120 MG CAP.SR.24H PO SCH (08:25)
[2019-06-03] MEDS: INSULIN REG, HUMAN 100 UNIT/ML 3 ML VIAL (PYX) SUBCUT SCH ×3 (08:25→17:28)
[2019-06-03] MEDS: LORATADINE 10 MG TABLET PO SCH (08:25)
[2019-06-03 08:34] LABS: HEMATOCRIT 31.4 % (36.0-47.0); HEMOGLOBIN 10.2 g/dL (12.0-15.5); MEAN CORPUSCULAR HGB CONC 32.7 g/dL (32.0-36.0); MEAN CORPUSCULAR VOLUME 92 fl (80-97); PLATELET COUNT 321 10^3/uL (150-450); RED BLOOD COUNT 3.42 10^6/uL (3.72-5.28); RED CELL DISTRIBUTION WIDTH 20.9 % (11.5-14.0); WHITE BLOOD COUNT 9.1 10^3/uL (4.0-10.5)
[2019-06-03] MEDS: LEVALBUTEROL HCL NEB 1.25 MG/3 ML AMPUL NEB SCH ×2 (08:42→16:35)
[2019-06-03] MEDS: BUDESONIDE NEB 0.5 MG/2 ML AMPUL NEB SCH (08:42)
[2019-06-03] MEDS: IPRATROPIUM BROMIDE 0.02% NEB 0.5 MG/2.5 ML AMPUL NEB SCH ×2 (08:42→16:35)
[2019-06-03 08:59] LABS: ANION GAP 11 (5-19); BLOOD UREA NITROGEN 48 mg/dL (7-20); CALCIUM 8.9 mg/dL (8.4-10.2); CARBON DIOXIDE 29 mmol/L (22-30); CHLORIDE 105 mmol/L (98-107); GLUCOSE 128 mg/dL (75-110); POTASSIUM 4.5 mmol/L (3.6-5.0)
[2019-06-03] MEDS: ASPIRIN 81 MG TABLET, ENT COATED PO SCH (09:42)
[2019-06-03] MEDS: FERROUS SULFATE 325 MG TABLET PO SCH (09:42)
[2019-06-03] MEDS: FUROSEMIDE 40 MG TABLET PO SCH ×2 (09:42→17:28)
[2019-06-03] MEDS: CHOLECALCIFEROL (D3) 1,000 UNIT (25 MCG) TABLET PO SCH (09:42)
[2019-06-03] MEDS: ASCORBIC ACID 500 MG TABLET PO SCH (09:43)
[2019-06-03] MEDS: MULTIVITAMIN TABLET PO SCH (09:43)
[2019-06-03] MEDS: DOCUSATE SODIUM 100 MG CAPSULE PO SCH ×2 (09:43→17:28)
[2019-06-03] MEDS: METOPROLOL SUCCINATE 25 MG TAB.SR.24H PO SCH (09:43)
[2019-06-03] MEDS: LOSARTAN POTASSIUM 25 MG TABLET PO SCH (09:43)
[2019-06-03] MEDS: CALCIUM CARBONATE 250 MG/VITAMIN D3 125 UNIT TABLET PO SCH (09:43)
[2019-06-03] MEDS: LIDOCAINE 5% (700 MG) TRANSDERMAL ADH..PATCH TP SCH (09:44)
[2019-06-03] MEDS: ALLOPURINOL 100 MG TABLET PO SCH (09:44)
[2019-06-03] MEDS: UMECLIDINIUM BROMIDE 62.5 MCG/DOSE IH SCH (09:45)
[2019-06-03] MEDS: NORMAL SALINE 10 ML SDV (SCHEDULED) IV SCH (09:48)
[2019-06-03] MEDS: CYCLOSPORINE 0.05% OPH EMULSIO 0.4 ML DROPERETTE OU SCH (09:48)
[2019-06-03] MEDS: FLUTICASONE/UMECLIDIN/VILANTER 100-62.5-25 MCG/DOSE IH SCH (09:53)
--- NOTE | 2019-06-03 11:47 | ADVANCED CARE ---
- Diagnosis (1) Atrial fibrillation with RVR Diagnosis Current: Yes (2) CHF (congestive heart failure) Diagnosis Current: Yes (3) Chronic kidney disease, stage IV (severe) Diagnosis Current: Yes (4) Chronic obstructive pulmonary disease Diagnosis Current: Yes (5) Coronary artery disease Diagnosis Current: Yes (6) Hypertension Diagnosis Current: Yes (7) Diabetes mellitus type 2 in obese Diagnosis Current: Yes (8) Hypothyroidism Diagnosis Current: Yes (9) Anemia Diagnosis Current: Yes (10) Cellulitis Diagnosis Current: Yes Attendance: Ms. Nakita Tate Resuscitation Status: Do Not Resuscitate Discussion: Discussed the patient's chronic medical conditions and readiness for discharge today. Discussed goals of care and disposition. Ms. Mace tells me that she would like to discharge to [facility] that she has made many friends there. She would like to remain at [facility] for as long as possible. She does ask that I reduce the number of medications that she takes if possible. She tells me that if, and when, her medical conditions worsen she would like to be transition to an inpatient hospice facility; preferably in [place] to be closer to her brother. She clearly states that she would not want to be readmitted to the hospital for management of acutely decompensated medical conditions. She is agreeable to palliative/hospice outpatient follow-up for smooth transition/hospice bridge when indicated. Care Planning Goals: Patient to discharge to [facility] today. She requests reduction in her medications. Request palliative care/hospice follow-up. Patient would like to remain at [facility] as long as possible, when she predictably worsens, is interested in transitioning to inpatient hospice services. The patient does tell me that she is not interested in returning to the acute hospital setting for medical interventions or management of worsening anemia, CHF, CKD, etc. Patient remains DNR/DNI with hospice bridge. Document(s) Completed: MOST form completed and placed in chart with DNR paperwork. Time Spent: 30 min
--- NOTE | 2019-06-03 12:03 | PDOC TRANSFER SUMMARY ---
Impression - Admit/DC Date/PCP Admission Date/Primary Care Provider: 05/31/19 23:14 GERSON MAY Discharge Date: 06/03/19 - Discharge Diagnosis (1) Atrial fibrillation with RVR Is this a current diagnosis for this admission?: Yes (2) CHF (congestive heart failure) Is this a current diagnosis for this admission?: Yes (3) Chronic kidney disease, stage IV (severe) Is this a current diagnosis for this admission?: Yes (4) Chronic obstructive pulmonary disease Is this a current diagnosis for this admission?: Yes (5) Coronary artery disease Is this a current diagnosis for this admission?: Yes (6) Hypertension Is this a current diagnosis for this admission?: Yes (7) Diabetes mellitus type 2 in obese Is this a current diagnosis for this admission?: Yes (8) Hypothyroidism Is this a current diagnosis for this admission?: Yes (9) Anemia Is this a current diagnosis for this admission?: Yes (10) Cellulitis Is this a current diagnosis for this admission?: Yes - Additional Information Resuscitation Status: Do Not Resuscitate Discharge Diet: Cardiac, Diabetic Discharge Activity: Activity As Tolerated, Balance Activity w/Rest Referrals: GERSON MAY MD [Primary Care Provider] - Follow up as needed Prescriptions: Cephalexin Monohydrate [Keflex 250 mg Capsule] 250 mg PO Q8 #21 capsule Sertraline HCl [Zoloft 50 mg Tablet] 25 mg PO DAILY #30 Allopurinol [Zyloprim 100 mg Tablet] 100 mg PO DAILY #30 tablet Home Medications: Acetaminophen [Tylenol 325 mg Tablet] 650 mg PO Q6HP PRN 06/01/19 Apremilast [Otezla] 30 mg PO Q12 06/01/19 Cyclosporine 0.05% Oph Emulsio [Restasis 0.05% Oph Emulsion Pf 0.4 ml] 1 drop OU DAILY 06/01/19 Diltiazem HCl [Cardizem Cd 120 mg Capsule] 120 mg PO QAM 06/01/19 Fexofenadine HCl [Hyacinth] 180 mg PO QAM 06/01/19 Fluticasone/Umeclidin/Vilanter [Trelegy 100-62.5-25 Mcg Ellipta 14 Dose/Dpi] 1 puff IH DAILY 06/01/19 Furosemide [Lasix 20 mg Tablet] 20 mg PO BID 06/01/19 Insulin Glargine,Hum.rec.anlog [Basaglar Kwikpen U-100] 20 units SQ QHS 06/01/19 Insulin Lispro [Humalog Insulin (Lispro) 100 unit/mL] 0 units SQ .PE RSLIDINGSCALE 06/01/19 Levothyroxine Sodium 75 mcg PO Q6AM 06/01/19 Lidocaine [Lidoderm 5% (700 mg) Transdermal Patch] 1 patch TD DAILY 06/01/19 Mag Hydrox/Al Hydrox/Simeth [Maalox Plus Susp 30 Udcup] 20 ml PO DAILYP PRN 06/01/19 Melatonin [Melatonin 5 mg Tablet] 5 mg PO QHS 06/01/19 Metoprolol Succinate [Toprol Xl 25 mg Tab.sr] 25 mg PO Q12 06/01/19 Mirtazapine [Remeron] 7.5 mg PO QHS 06/01/19 Ondansetron HCl [Zofran 4 mg Tablet] 4 mg PO Q12HP PRN 06/01/19 Pantoprazole Sodium [Protonix [address] Tablet] 40 mg PO Q6AM 06/01/19 Prednisone [Deltasone 5 mg Tablet] 5 mg PO QAM 06/01/19 Tiotropium Guion [Spiriva Handihaler 5 Cap/Kit (18 Mcg/Cap)] 1 cap IH DAILY 06/01/19 Acetaminophen [Tylenol 325 mg Tablet] 650 mg PO Q4HP PRN tablet 06/03/19 Allopurinol [Zyloprim 100 mg Tablet] 100 mg PO DAILY #30 tablet 06/03/19 Cephalexin Monohydrate [Keflex 250 mg Capsule] 250 mg PO Q8 #21 capsule 06/03/19 Sertraline HCl [Zoloft 50 mg Tablet] 25 mg PO DAILY #30 06/03/19 History of Present Illiness History of Present Illness: Per H&P by Dr. Snell: PREETI ELIZABETH is a 78 year old female who presented to the emergency room with acute rapid heart palpitations. Patient complained of suddenly developing a rapid heartbeat short time prior to her ER presentation. She denies associated or accompanying signs and symptoms. She admits prior similar episodes related to her atrial fibrillation. She has not identified any aggravating or ameliorating factors for her palpitations. In the emergency room she was found to have atrial fibrillation with a rapid ventricular response with a rate in the 140s. She was initially treated with bolus doses of diltiazem 10 mg x 2 with transient improvement. She was subsequently placed on a diltiazem infusion and admitted to the hospital service on [facility] for further evaluation and treatment. Hospital Course Hospital Course: The patient was admitted to [facility] on continuous cardiac telemetry due to atrial fibrillation with RVR resulting and CHF exacerbation. She was initially treated with a diltiazem drip but quickly became rate controlled and was transitioned back to her home dose metoprolol and diltiazem after correction of her anemia. The patient does have chronic anemia related to her CKD and persistent fecal occult positive stools (patient has repeatedly declined further evaluation). She did have a precipitous drop in hemoglobin from 8.9-6.7; without clear cause. However, patient does decline further evaluation/intervention. She was provided 1 unit PRBC with improvement to hemoglobin of 9.6 and continued stability. On day of discharge, hemoglobin is 10.2. Her home medication regiment for management of her CHF was continued; she was provided additional IV furosemide for diuresis. Her pedal edema is significantly improved. She is noted to have a small abrasion to the dorsal aspect of her left foot with surrounding cellulitis. She was started on oral Keflex today with rapid improvement; decreased erythema, edema, and tenderness today. The patient initiated multiple conversations regarding goals of care and his ultimately decided to remain a DNR/DNI with bridge to hospice services. She states that she would like to return to [facility] but has her medical conditions expectedly worsen then transition to inpatient hospice services. She would like to have arrangements made to move to inpatient hospice services located in [place], if able, so that she will be closer to her brother when the time is appropriate. Please reference multiple ACP notes from this admission for detailed discussion. She does ask that I reduce the number of medications that she takes. To that end, I have reduced the dose of her allopurinol and Zoloft. I have also discontinued all nonessential medications. At time of discharge, patient is in stable condition, alert and oriented x4, maintaining oxygen saturations on her baseline oxygen that is, and reportedly feeling well. She is discharged to [facility] where she is an established resident. She would like to be followed by palliative care/hospice services for bridge to inpatient hospice services when appropriate. She is prescribed a 7-day course of Keflex for treatment of her left foot cellulitis. She is encouraged to discuss with her primary care provider, family and friends her decision regarding goals of care. Physical Exam Vital Signs: Temp Pulse Resp BP Pulse Ox 97.3 F 101 H 20 124/78 96 06/03/19 07:51 06/03/19 08:42 06/03/19 08:42 06/03/19 07:51 06/03/19 08:42 Intake & Output 06/02/19 06/03/19 06/04/19 06:59 06:59 06:59 Intake Total 906 460 Output Total 550 1 Balance 356 459 Weight 83.9 kg 85.5 kg General appearance: PRESENT: no acute distress, cooperative, hard of hearing, obese, well-developed, well-nourished Head exam: PRESENT: atraumatic, normocephalic Eye exam: PRESENT: conjunctiva pink, EOMI, PERRLA. ABSENT: scleral icterus Ear exam: PRESENT: normal external ear exam Mouth exam: PRESENT: moist, tongue midline Respiratory exam: PRESENT: clear to auscultation kaylee, symmetrical, unlabored, other - Baseline oxygen requirement. ABSENT: rales, rhonchi, wheezes Cardiovascular exam: PRESENT: irregular rhythm, +S1, +S2, systolic murmur. ABSENT: diastolic murmur, rubs Vascular exam: PRESENT: normal capillary refill GI/Abdominal exam: PRESENT: normal bowel sounds, soft. ABSENT: distended, guarding, mass, organolmegaly, rebound, tenderness Rectal exam: PRESENT: deferred Extremities exam: PRESENT: full ROM, pedal edema - +1, pitting pedal edema bilaterally. ABSENT: calf tenderness, clubbing Neurological exam: PRESENT: alert, awake, oriented to person, oriented to place, oriented to time, oriented to situation, CN II-XII grossly intact. ABSENT: motor sensory deficit Psychiatric exam: PRESENT: appropriate affect, normal mood. ABSENT: homicidal ideation, suicidal ideation Skin exam: PRESENT: dry, erythema - Slight erythema surrounding abrasion to the dorsum aspect of her left foot; significant improvement in erythema and edema. Tenderness improved., warm. ABSENT: cyanosis, intact, rash Results Laboratory Results: WBC 9.1 10^3/uL (4.0-10.5) 06/03/19 08:10 RBC 3.42 10^6/uL (3.72-5.28) L 06/03/19 08:10 Hgb 10.2 g/dL (12.0-15.5) L 06/03/19 08:10 Hct 31.4 % (36.0-47.0) L 06/03/19 08:10 MCV 92 fl (80-97) 06/03/19 08:10 MCH 30.0 pg (27.0-33.4) 06/03/19 08:10 MCHC 32.7 g/dL (32.0-36.0) 06/03/19 08:10 RDW 20.9 % (11.5-14.0) H 06/03/19 08:10 Plt Count 321 10^3/uL (150-450) 06/03/19 08:10 Lymph % (Auto) 8.8 % (13-45) L 06/01/19 21:42 [place] % (Auto) 7.8 % (3-13) 06/01/19 21:42 Eos % (Auto) 1.9 % (0-6) 06/01/19 21:42 Baso % (Auto) 0.7 % (0-2) 06/01/19 21:42 Reticulocyte # 0.073 10^6/uL (0.028-0.122) 06/01/19 05:50 Absolute Neuts (auto) 7.7 10^3/uL (1.7-8.2) 06/01/19 21:42 Absolute Lymphs (auto) 0.8 10^3/uL (0.5-4.7) 06/01/19 21:42 Absolute Monos (auto) 0.7 10^3/uL (0.1-1.4) 06/01/19 21:42 Absolute Eos (auto) 0.2 10^3/uL (0.0-0.6) 06/01/19 21:42 Absolute Basos (auto) 0.1 10^3/uL (0.0-0.2) 06/01/19 21:42 Total Counted 100 05/31/19 20:00 Seg Neutrophils % 80.8 % (42-78) H 06/01/19 21:42 Seg Neuts % (Manual) 88 % (42-78) H 05/31/19 20:00 Lymphocytes % (Manual) 7 % (13-45) L 05/31/19 20:00 Atypical Lymphs % 1 % (0) 05/31/19 20:00 Monocytes % (Manual) 4 % (3-13) 05/31/19 20:00 Eosinophils % (Manual) 0 % (0-6) 05/31/19 20:00 Basophils % (Manual) 0 % (0-2) 05/31/19 20:00 Abs Neuts (Manual) 8.5 10^3/uL (1.7-8.2) H 05/31/19 20:00 Abs Lymphs (Manual) 0.8 10^3/uL (0.5-4.7) 05/31/19 20:00 Abs Monocytes (Manual) 0.4 10^3/uL (0.1-1.4) 05/31/19 20:00 Absolute Eos (Manual) 0.0 10^3/uL (0.0-0.6) 05/31/19 20:00 Abs Basophils (Manual) 0.0 10^3/uL (0.0-0.2) 05/31/19 20:00 Platelet Comment ADEQUATE 05/31/19 20:00 Anisocytosis 3+ 05/31/19 20:00 Ovalocytes SLIGHT 05/31/19 20:00 Retic Count (auto) 3.17 % (0.66-2.85) H 06/01/19 05:50 PT 15.1 SEC (11.4-15.4) 05/31/19 20:00 INR 1.18 05/31/19 20:00 Sodium 144.6 mmol/L (137-145) 06/03/19 08:10 Potassium 4.5 mmol/L (3.6-5.0) 06/03/19 08:10 Chloride 105 mmol/L (98-107) 06/03/19 08:10 Carbon Dioxide 29 mmol/L (22-30) 06/03/19 08:10 Anion Gap 11 (5-19) 06/03/19 08:10 BUN 48 mg/dL (7-20) H 06/03/19 08:10 Creatinine 2.27 mg/dL (0.52-1.25) H 06/03/19 08:10 Est GFR ( Amer) 25 (>60) L 06/03/19 08:10 Est GFR (MDRD) Non-Af 21 (>60) L 06/03/19 08:10 Glucose 128 mg/dL (75-110) H 06/03/19 08:10 POC Glucose 151 mg/dL (70-110) H 06/03/19 07:50 Hemoglobin A1c % % (4.7-6.0) 06/01/19 05:50 Calcium 8.9 mg/dL (8.4-10.2) 06/03/19 08:10 Magnesium 1.7 mg/dL (1.6-2.3) 06/02/19 06:32 Iron 47.5 ug/dL (37-170) 06/01/19 05:50 TIBC 311 ug/dL (250-450) 06/01/19 05:50 % Saturation 15 % 06/01/19 05:50 Ferritin 135.00 ng/mL (11.1-264.0) 06/01/19 05:50 Total Bilirubin 0.4 mg/dL (0.2-1.3) 05/31/19 20:00 Direct Bilirubin 0.2 mg/dL (0.0-0.4) 05/31/19 20:00 Neonat Total Bilirubin Not Reportable 05/31/19 20:00 Neonat Direct Bilirubin Not Reportable 05/31/19 20:00 Neonat Indirect Bili Not Reportable 05/31/19 20:00 AST 24 U/L (14-36) 05/31/19 20:00 ALT 15 U/L (<35) 05/31/19 20:00 Alkaline Phosphatase 92 U/L (38-126) 05/31/19 20:00 Creatine Kinase 24 U/L (30-135) L 06/01/19 21:42 CK-MB (CK-2) 1.34 ng/mL (<4.55) 06/01/19 21:42 Troponin I 0.042 ng/mL 06/01/19 21:42 NT-Pro-B Natriuret Pep 5100 pg/mL (<450) H 05/31/19 23:34 Total Protein 6.6 g/dL (6.3-8.2) 05/31/19 20:00 Albumin 3.5 g/dL (3.5-5.0) 05/31/19 20:00 Triglycerides 112 mg/dL (<150) 06/01/19 05:50 Cholesterol 114.08 mg/dL (0-200) 06/01/19 05:50 LDL Cholesterol Direct 39 mg/dL (<100) 06/01/19 05:50 VLDL Cholesterol 22.0 mg/dL (10-31) 06/01/19 05:50 HDL Cholesterol 53 mg/dL (>40) 06/01/19 05:50 Vitamin B12 974.0 pg/mL (239-931) H 06/01/19 05:50 Folate > 20.00 ng/mL (>2.76) 06/01/19 05:50 TSH 61.10 uIU/mL (0.47-4.68) H 06/01/19 05:50 Free T4 0.70 ng/dL (0.78-2.19) L 06/01/19 05:50 Free T3 pg/mL 2.85 pg/mL (2.77-5.27) 06/01/19 05:50 Blood Type O NEGATIVE 06/01/19 13:56 Antibody Screen NEGATIVE 06/01/19 13:56 Crossmatch See Detail 06/01/19 13:56 05/31/19 05/31/19 05/31/19 20:00 23:34 23:34 CK-MB (CK-2) 1.35 Troponin I 0.036 0.040 NT-Pro-B Natriuret Pep 5100 H 06/01/19 06/01/19 06/01/19 05:50 13:56 21:42 CK-MB (CK-2) 1.28 1.33 1.34 Troponin I 0.046 0.037 0.042 NT-Pro-B Natriuret Pep Impressions: Chest X-Ray 05/31/19 19:23 IMPRESSION: Increased basilar interstitial- airspace opacities and pleural effusions. Guidance Fluoroscopy 06/01/19 00:00 IMPRESSION: SUCCESSFUL PLACEMENT OF A 5 FR DUAL LUMEN 41 CM PICC IN THE LEFT BASILIC VEIN. Interventional Vascular Procedure 06/01/19 00:00 IMPRESSION: SUCCESSFUL PLACEMENT OF A 5 FR DUAL LUMEN 41 CM PICC IN THE LEFT BASILIC VEIN. PICC Line Insertion 06/01/19 00:00 IMPRESSION: SUCCESSFUL PLACEMENT OF A 5 FR DUAL LUMEN 41 CM PICC IN THE LEFT BASILIC VEIN. Plan Plan of Treatment: Discharge to SNF. DNR/DNI; palliative care consultation with hospice bridge. Ideally, patient would like to transition to [facility] in [place] to be near her brother when appropriate. Complete course of Keflex for treatment of left foot cellulitis. Patient interested in reducing overall medication; have dose reduced and discontinued were appropriate. Stroke Is this a Stroke Patient?: No Acute Heart Failure - Is this a Heart Failure Patient?: Yes Documentation of LVEF assessment?: No, Document reason LVEF < 40%?: No- if no continue to question #3 3. Anticoagulant therapy for permanect/persistent/paraoxysmal Afib or Aflutter: No, document contraindications Reason(s) not discharged on anticoagulant therapy for permanect/persistent/paraoxysmal Afib or Aflutter: Risk for bleeding
[2019-06-03 16:03] VITALS: BP 123/69
== END 2019-06-03 18:39 | DRG 309 ==
LOC: ER 19:21 → EH 23:14 → 3S 06-01 01:44
PROVIDERS: ADMIT Emergency Medicine; ATTEND Emergency Medicine
PROC: 30233N1 Transfusion of Nonautologous Red Blood Cells into Peripheral Vein, Percutaneous Approach (ICD-10-PCS; principal; 2019-06-01)
PROC: 02HV33Z Insertion of Infusion Device into Superior Vena Cava, Percutaneous Approach (ICD-10-PCS; 2019-06-01)
DX: I48.91 Unspecified atrial fibrillation (principal); I13.0 Hypertensive heart and chronic kidney disease with heart failure and stage 1 through stage 4 chronic kidney disease, or unspecified chronic kidney disease; J96.10 Chronic respiratory failure, unspecified whether with hypoxia or hypercapnia; L03.116 Cellulitis of left lower limb; N18.4 Chronic kidney disease, stage 4 (severe); I50.32 Chronic diastolic (congestive) heart failure; I27.20 Pulmonary hypertension, unspecified; D63.1 Anemia in chronic kidney disease; Z99.81 Dependence on supplemental oxygen; E11.22 Type 2 diabetes mellitus with diabetic chronic kidney disease; J44.9 Chronic obstructive pulmonary disease, unspecified; Z66 Do not resuscitate; I25.10 Atherosclerotic heart disease of native coronary artery without angina pectoris; E03.9 Hypothyroidism, unspecified; R19.5 Other fecal abnormalities; E66.9 Obesity, unspecified; E78.5 Hyperlipidemia, unspecified; J30.9 Allergic rhinitis, unspecified; K21.9 Gastro-esophageal reflux disease without esophagitis; M19.90 Unspecified osteoarthritis, unspecified site; M10.9 Gout, unspecified; L40.9 Psoriasis, unspecified; F32.9 Major depressive disorder, single episode, unspecified; Z79.4 Long term (current) use of insulin; Z79.52 Long term (current) use of systemic steroids; Z95.5 Presence of coronary angioplasty implant and graft; Z87.891 Personal history of nicotine dependence; Z88.0 Allergy status to penicillin; Z88.8 Allergy status to other drugs, medicaments and biological substances; Z91.048 Other nonmedicinal substance allergy status; Z83.3 Family history of diabetes mellitus; Z82.49 Family history of ischemic heart disease and other diseases of the circulatory system
CPT/HCPCS: 36415; 36430; 36569; 71045; 76937; 77001; 80048; 80053; 80061; 82550; 82553; 82607; 82728; 82746; 82962; 83036; 83540; 83550; 83735; 83880; 84439; 84443; 84481; 84484; 85025; 85027; 85045; 85610; 86850; 86900; 86901; 86920; 93005; 93010; 93971; 94640; 96361; 96374; 96375; 96376; 99291; C1769; J0610; J1642; J1644; J1815; J3490; J7030; J7512; P9016

== ENCOUNTER 2019-06-11 15:53 | Inpatient (IN) | payer MEDICARE, MEDICAID ==
--- NOTE | 2019-06-11 16:30 | ER Document Report ---
ED General - General Chief Complaint: Abnormal Lab Results Stated Complaint: ABNORMAL LABS Time Seen by Provider: 06/11/19 16:05 Notes: Patient is an 78-year-old female who presents the emergency department with shortness of breath. She was referred to the emergency department for an elevated BNP. BNP was 8100. States that she became short of breath yesterday. She states that she feels like she cannot get a good deep breath in the bottom of her lungs. Patient also notes that she is a lot more edematous than she normally is. Yesterday one of the workers at the prison had tried to help her turn and her skin on her left lateral thigh had sloughed off. She also has edema to bilateral upper extremities. Patient has a past medical history of atrial fibrillation with RVR, congestive heart failure, chronic kidney disease stage IV, COPD, coronary artery disease, hypertension, diabetes, hypothyroidism, pneumonia, and cellulitis. Patient last was recently released from the hospital on June 03. She was then released to she was in for pneumonia. Patient was then released to [facility]. Patient is a DNR. TRAVEL OUTSIDE OF THE [place] IN LAST 30 DAYS: No - Related Data Allergies/Adverse Reactions: adhesive tape Allergy (Verified 05/15/19 14:02) methotrexate [Methotrexate] Allergy (Verified 04/20/19 16:05) Penicillins Allergy (Verified 04/21/19 11:29) Past Medical History - General Information source: Patient, Friend, [facility] Records - Social History Smoking Status: Former Smoker Frequency of alcohol use: None Drug Abuse: None [facility] with: [facility] Family History: CAD, DM - Past Medical History Cardiac Medical History: Reports: Hx Atrial Fibrillation, Hx Congestive Heart Failure, Hx Coronary Artery Disease - With 2 stents in the past, Hx Hypercholesterolemia, Hx Hypertension Pulmonary Medical History: Reports: Hx COPD, Hx Pneumonia, Hx Respiratory Failure Denies: Hx Asthma, Hx Tuberculosis Neurological Medical History: Denies: Hx Migraine, Hx Seizures Endocrine Medical History: Reports: Hx Diabetes Mellitus Type 2. Denies: Hx Diabetes Mellitus Type 1, Hx Hyperthyroidism, Hx Hypothyroidism Renal/ Medical History: Denies: Hx End Stage Renal Disease, Hx Peritoneal D ialysis GI Medical History: Reports: Hx Gastroesophageal Reflux Disease. Denies: Hx Cirrhosis, Hx Crohn's Disease, Hx Hepatitis, Hx Ulcerative Colitis Musculoskeletal Medical History: Reports Hx Arthritis, Reports Hx Gout Skin Medical History: Denies Hx Eczema, Reports Hx Psoriasis Psychiatric Medical History: Reports: Hx Depression Denies: Hx Bipolar Disorder Infectious Medical History: Denies: Hx Hepatitis Past Surgical History: Reports: Hx Cardiac Catheterization, Hx Coronary Stent - X2, Hx Herniorrhaphy, Hx Hysterectomy. Denies: Hx Pacemaker - Immunizations Immunizations up to date: Yes Hx Diphtheria, Pertussis, Tetanus Vaccination: Yes Review of Systems - Review of Systems Notes: REVIEW OF SYSTEMS: CONSTITUTIONAL : Denies recent illness. Denies recent unintentional weight loss. Denies fever, chills, or sweats. EENT: Denies eye, ear, throat, or mouth pain, discharge, or symptoms. Denies na toño or sinus congestion. CARDIOVASCULAR: Denies chest pain. RESPIRATORY: See HPI. GASTROINTESTINAL: See HPI. GENITOURINARY: Denies difficulty urinating, burning, blood in urine, urgency or frequency. MUSCULOSKELETAL: Denies neck and back pain. Denies joint pain. See HPI. SKIN: See HPI. HEMATOLOGIC : Denies easy bruising or bleeding. LYMPHATIC: Denies swollen, painful, enlarged glands. NEUROLOGICAL: Denies no numbness or tingling denies weakness. Denies headache. Denies altered mental status. Denies alteration in speech. PSYCHIATRIC: Denies stress, anxiety, alteration in sleep patterns, or depression. All other systems reviewed and negative. Physical Exam - Vital signs Vitals: Temp 97.5 F 06/11/19 16:15 - Notes Notes: PHYSICAL EXAMINATION: GENERAL: Appears chronically ill, mild distress distress. HEAD: Normocephalic, atraumatic. EYES: PERRL, conjunctiva normal, all extraocular movements intact, sclera nonicteric ENT: Dry mucous membranes. NECK: Supple, no noticeable swelling, redness, rash. Normal range of motion. LUNGS: Diminished breath sounds throughout. Tachypneic. CARDIOVASCULAR: Irregularly irregular. Radial pulses 2+, normal. ABDOMEN: Normoactive bowel sounds. Soft, distended, no guarding, no rebound tenderness, and no masses palpated. EXTREMITIES: 4+ pitting edema to lower extremities, 2+ pitting edema to upper extremities. No cyanosis. NEUROLOGICAL: Moves all extremities upon command. PSYCH: Normal mood, normal affect. SKIN: Warm, weeping left lower extremity, anasarca. Course - Re-evaluation Re-evalutation: 06/11/19 18:36 Patient's CO2 is 69.8 on her ABG. Her PO2 is 79.9. She will be placed on BiPAP. Potassium is 5.7. She will be placed on Bumex, as she was supposed to be transferred from [facility] to Bumex outpatient. Patient's BNP is 8620, which is worse than it was before she came in. Chest x-ray shows pleural opacities, most likely due to edema. A very low suspicion for pneumonia, as the patient has not any fever does not have a fever. No altered mental status. Patient awaiting CT of the abdomen, pelvis, and chest. 06/11/19 19:[address] Snell, the hospitalist doctor. The patient will be admitted to [facility]. - Vital Signs Vital signs: Temp Pulse Resp BP Pulse Ox 97.8 F 21 H 107/74 100 06/11/19 21:59 06/11/19 21:48 06/11/19 21:31 06/11/19 22:13 - Laboratory Result Diagrams: 06/11/19 17:21 06/11/19 17:21 Laboratory results interpreted by me: 06/11/19 06/11/19 06/11/19 17:21 17:21 17:21 RBC 3.12 L Hgb 9.4 L Hct 29.5 L MCHC 31.7 L RDW 20.9 H Seg Neuts % (Manual) 94 H Lymphocytes % (Manual) 4 L Monocytes % (Manual) 2 L Abs Neuts (Manual) 8.8 H Abs Lymphs (Manual) 0.4 L Carbonic Acid ABG pH ABG pCO2 ABG pO2 ABG HCO3 ABG Total CO2 Potassium 5.7 H Carbon Dioxide 31 H BUN 67 H Creatinine 2.25 H Est GFR ( Amer) 25 L Est GFR (MDRD) Non-Af 21 L Glucose 142 H Creatine Kinase 28 L NT-Pro-B Natriuret Pep 8620 H Urine Protein Ur Leukocyte Esterase 06/11/19 06/11/19 17:21 18:55 RBC Hgb Hct MCHC RDW Seg Neuts % (Manual) Lymphocytes % (Manual) Monocytes % (Manual) Abs Neuts (Manual) Abs Lymphs (Manual) Carbonic Acid 2.10 H ABG pH 7.30 L ABG pCO2 69.8 H* ABG pO2 79.9 L ABG HCO3 33.7 H ABG Total CO2 35.9 H Potassium Carbon Dioxide BUN Creatinine Est GFR ( Amer) Est GFR (MDRD) Non-Af Glucose Creatine Kinase NT-Pro-B Natriuret Pep Urine Protein 100 H Ur Leukocyte Esterase TRACE H - EKG Interpretation by Me Additional EKG results interpreted by me: 06/11/19 19:46 Atrial fibrillation. Rate 110. QRS 82; QT 336; QTc 455. No ST elevations or d epressions noted. Previous EKG shows atrial fibrillation with rapid ventricular rate. Discharge - Discharge Clinical Impression: COPD exacerbation CHF (congestive heart failure) Qualifiers: Heart failure type: unspecified Heart failure chronicity: acute on chronic Qualified Code(s): I50.9 - Heart failure, unspecified Condition: Stable Disposition: ADMITTED INPATIENT Admitting Provider: Channing (Hospitalist) Unit Admitted: [facility]
--- NOTE | 2019-06-11 16:36 | RADIOLOGY REPORT (SQ) ---
EXAM DESCRIPTION: CHEST SINGLE VIEW COMPLETED DATE/TIME: 06/11/2019 4:24 pm REASON FOR STUDY: shortness of breath COMPARISON: AP view of the chest from 05/31/2019 EXAM PARAMETERS: NUMBER OF VIEWS: One view. TECHNIQUE: Single frontal radiographic view of the chest acquired. RADIATION DOSE: NA LIMITATIONS: None. FINDINGS: LUNGS AND PLEURA: Basilar predominant pleural and parenchymal opacities, increased from . There is no pneumothorax. MEDIASTINUM AND HILAR STRUCTURES: Stable mediastinal and hilar contours. HEART AND VASCULAR STRUCTURES: The cardiac silhouette is enlarged. The pulmonary vasculature is erik stinct. BONES: No acute findings. HARDWARE: None in the chest. OTHER: No other finding. IMPRESSION: Basilar predominant pleural and parenchymal opacities that could represent a combination of pleural fluid, atelectasis, and in the proper clinical setting pneumonia. TECHNICAL DOCUMENTATION: JOB ID: [id number] [employer]- All Rights Reserved Reading location - IP/workstation name: [email or web address]
[2019-06-11 17:43] LABS: HEMATOCRIT 29.5 % (36.0-47.0); HEMOGLOBIN 9.4 g/dL (12.0-15.5); MEAN CORPUSCULAR HGB CONC 31.7 g/dL (32.0-36.0); MEAN CORPUSCULAR VOLUME 95 fl (80-97); PLATELET COUNT 273 10^3/uL (150-450); RED BLOOD COUNT 3.12 10^6/uL (3.72-5.28); RED CELL DISTRIBUTION WIDTH 20.9 % (11.5-14.0); WHITE BLOOD COUNT 9.4 10^3/uL (4.0-10.5)
[2019-06-11 17:54] LABS: ALBUMIN 3.6 g/dL (3.5-5.0); ALKALINE PHOSPHATASE 83 U/L (38-126); ANION GAP 10 (5-19); ASPARTATE AMINO TRANSFERASE 30 U/L (14-36); BILIRUBIN,DIRECT 0.3 mg/dL (0.0-0.4); BILIRUBIN,TOTAL 0.6 mg/dL (0.2-1.3); BLOOD UREA NITROGEN 67 mg/dL (7-20); CALCIUM 8.9 mg/dL (8.4-10.2); CARBON DIOXIDE 31 mmol/L (22-30); CHLORIDE 103 mmol/L (98-107); CREATINE KINASE 28 U/L (30-135); GLUCOSE 142 mg/dL (75-110); POTASSIUM 5.7 mmol/L (3.6-5.0); TOTAL PROTEIN 6.7 g/dL (6.3-8.2)
[2019-06-11 18:06] LABS: CREATINE KINASE MB 1.3 ng/mL (<4.55); TROPONIN I 0.028 ng/mL
[2019-06-11 18:19] LABS: ABSOLUTE LYMPHOCYTES# (MANUAL) 0.4 10^3/uL (0.5-4.7); ABSOLUTE MONOCYTES # (MANUAL) 0.2 10^3/uL (0.1-1.4); ANISOCYTOSIS 2+; BASOPHILS % (MANUAL) 0 % (0-2); EOSINOPHILS % (MANUAL) 0 % (0-6); HYPOCHROMASIA 1+; LYMPHOCYTES % (MANUAL) 4 % (13-45); MONOCYTES % (MANUAL) 2 % (3-13); PLATELET COMMENT ADEQUATE; SEGMENTED NEUTROPHILS % (MAN) 94 % (42-78); TOTAL CELLS COUNTED 100
[2019-06-11 18:24] LABS: ARTERIAL BLOOD BASE EXCESS 5.8 mmol/L; ARTERIAL BLOOD HCO3 33.7 mmol/L (20-24); ARTERIAL BLOOD O2 SATURATION 94.2 % (94-98); ARTERIAL BLOOD PO2 79.9 mmHg (80-100); ARTERIAL BLOOD TOTAL CO2 35.9 mmol/L (21-25)
[2019-06-11 18:25] LABS: ARTERIAL BLOOD FIO2 2
[2019-06-11 18:26] LABS: ARTERIAL BLOOD PCO2 69.8 mmHg (35-45)
[2019-06-11] MEDS ORDERED: BUMETANIDE INJ/PF 1 MG/4 ML SDV IV ONE (19:00)
[2019-06-11] MEDS ORDERED: LORAZEPAM INJ 2 MG/1 ML VIAL IV ONE (19:25)
[2019-06-11 19:26] LABS: APPEARANCE,URINE SLIGHTLY-CLOUDY; BILIRUBIN,URINE NEGATIVE (NEGATIVE); COLOR,URINE YELLOW; GLUCOSE, URINE NEGATIVE (NEGATIVE); KETONES,URINE NEGATIVE (NEGATIVE); LEUKOCYTE ESTERASE,URINE TRACE (NEGATIVE); NITRITE,URINE NEGATIVE (NEGATIVE); PROTEIN,URINE 100 mg/dL (NEGATIVE); URINE SPECIFIC GRAVITY 1.014; UROBILINOGEN,URINE NEGATIVE mg/dL (<2.0)
--- NOTE | 2019-06-11 20:21 | PDOC H&P ---
History of Present Illness Admission Date/PCP: 06/11/19 20:04 GERSON MAY Patient complains of: Dyspnea History of Present Illness: PREETI ELIZABETH is a 78 year old female who presented to the emergency room with a 3-day history of dyspnea. Patient admits progressively worsening dyspnea over the last 3 days while being treated as a patient at [facility]. Her dyspnea is increased by activity. Because of her increased shortness of breath a BNP was performed on an outpatient basis with a result of 8100. Patient was subsequently sent to the emergency room for further evaluation treatment. She denies associated or accompanying signs and symptoms. She admits numerous prior similar episodes related to her heart failure and COPD. She has not identified any additional aggravating or ameliorating factors for her present episode of dyspnea. In the emergency room the patient was found to have a BNP of greater than 8900 and she was found to be in acute respiratory failure with hypoxia and hypercapnia. She was treated with BiPAP and was subsequently admitted to hospital for further evaluation treatment. Past Medical History Cardiac Medical History: Reports: Atrial Fibrillation, Congestive Heart Failure, Coronary Artery Disease - With 2 stents in the past, Hyperlipidema, Hypertension Pulmonary Medical History: Reports: Chronic Obstructive Pulmonary Disease (COPD), Pneumonia, Respiratory Failure Denies: Asthma, Tuberculosis EENT Medical History: Denies: Cataracts, Ears - Hearing aids Neurological Medical History: Denies: Hemorrhagic CVA, Ischemic CVA, Migraine, Seizures Endocrine Medical History: Reports: Diabetes Mellitus Type 2 Denies: Diabetes Mellitus Type 1, Hyperthyroidism, Hypothyroidism Renal/ Medical History: Reports: Chronic Kidney Disease Denies: Nephrolithiasis Malignancy Medical History: Reports: None GI Medical History: Reports: Gastroesophageal Reflux Disease Denies: Cirrhosis, Crohn's Disease, Hepatitis, Ulcerative Colitis Musculoskeltal Medical History: Reports: Arthritis, Gout Skin Medical History: Reports: Psoriasis Denies: Eczema Psychiatric Medical History: Reports: Depression Denies: Alcohol Dependency, Bipolar Disorder, Substance Abuse, Tobacco Dependency Traumatic Medical History: Reports: None Hematology: Reports: Anemia - Chronic Denies: Bleeding Tendencies Infectious Medical History: Reports: None Past Surgical History Past Surgical History: Reports: Cardiac Catheterization, Coronary Stent - X2, H erniorrhaphy, Hysterectomy Social History Information Source: Patient Lives with: Group Home Smoking Status: Former Smoker Electronic Cigarette use?: No Frequency of Alcohol Use: None Hx Recreational Drug Use: No Drugs: None Hx Prescription Drug Abuse: No - Advance Directive Resuscitation Status: Full Code Surrogate healthcare decision maker:: Sharmin Boudreaux Family History Family History: CAD, DM Parental Family History Reviewed: Yes Children Family History Reviewed: No Sibling(s) Family History Reviewed.: Yes Medication/Allergy Home Medications: RX: Acetaminophen [Tylenol 325 mg Tablet] 650 mg PO Q6HP PRN 06/01/19 RX: Apremilast [Otezla] 30 mg PO Q12 06/01/19 RX: Cyclosporine 0.05% Oph Emulsio [Restasis 0.05% Oph Emulsion Pf 0.4 ml] 1 drop OU DAILY 06/01/19 RX: Diltiazem HCl [Cardizem Cd 120 mg Capsule] 120 mg PO QAM 06/01/19 RX: Fexofenadine HCl [Hyacinth] 180 mg PO QAM 06/01/19 RX: Fluticasone/Umeclidin/Vilanter [Trelegy 100-62.5-25 Mcg Ellipta 14 Dose/Dpi] 1 puff IH DAILY 06/01/19 RX: Furosemide [Lasix 20 mg Tablet] 20 mg PO BID 06/01/19 RX: Insulin Glargine,Hum.rec.anlog [Basaglar Kwikpen U-100] 20 units SQ QHS 06/01/19 RX: Insulin Lispro [Humalog Insulin (Lispro) 100 unit/mL] 0 units SQ .PERSLIDINGSCALE 06/01/19 RX: Levothyroxine Sodium 75 mcg PO Q6AM 06/01/19 RX: Lidocaine [Lidoderm 5% (700 mg) Transdermal Patch] 1 patch TD DAILY 06/01/19 RX: Mag Hydrox/Al Hydrox/Simeth [Maalox Plus Susp 30 Udcup] 20 ml PO DAILYP PRN 06/01/19 RX: Melatonin [Melatonin 5 mg Tablet] 5 mg PO QHS 06/01/19 RX: Metoprolol Succinate [Toprol Xl 25 mg Tab.sr] 25 mg PO Q12 06/01/19 RX: Mirtazapine [Remeron] 7.5 mg PO QHS 06/01/19 RX: Ondansetron HCl [Zofran 4 mg Tablet] 4 mg PO Q12HP PRN 06/01/19 RX: Pantoprazole Sodium [Protonix [address] Tablet] 40 mg PO Q6AM 06/01/19 RX: Prednisone [Deltasone 5 mg Tablet] 5 mg PO QAM 06/01/19 RX: Tiotropium [place] [Spiriva Handihaler 5 Cap/Kit (18 Mcg/Cap)] 1 cap IH DAILY 06/01/19 RX: Acetaminophen [Tylenol 325 mg Tablet] 650 mg PO Q4HP PRN tablet 06/03/19 RX: Allopurinol [Zyloprim 100 mg Tablet] 100 mg PO DAILY #30 tablet 06/03/19 RX: Cephalexin Monohydrate [Keflex 250 mg Capsule] 250 mg PO Q8 #21 capsule 06/03/19 RX: Sertraline HCl [Zoloft 50 mg Tablet] 25 mg PO DAILY #30 06/03/19 Allergies/Adverse Reactions: adhesive tape Allergy (Verified 05/15/19 14:02) methotrexate [Methotrexate] Allergy (Verified 04/20/19 16:05) Penicillins Allergy (Verified 04/21/19 11:29) apremilast [From Otezla] Adverse Reaction (Verified 06/11/19 23:32) Renal failure Review of Systems Constitutional: ABSENT: chills, fever(s) Eyes: ABSENT: visual disturbances, other - Eye pain Ears: ABSENT: hearing changes, other - Ear pain Nose, Mouth, and Throat: ABSENT: mouth pain, sore throat Cardiovascular: PRESENT: as per HPI, dyspnea on exertion. ABSENT: chest pain Respiratory: PRESENT: as per HPI, dyspnea. ABSENT: cough Gastrointestinal: ABSENT: abdominal pain, constipation, diarrhea, nausea, vomiting Musculoskeletal: ABSENT: back pain, joint swelling, muscle weakness Integumentary: ABSENT: pruritus, rash Neurological: ABSENT: confusion, convulsions, focal weakness, memory loss, syncope Psychiatric: ABSENT: anxiety, depression Endocrine: ABSENT: cold intolerance, heat intolerance Hematologic/Lymphatic: ABSENT: easy bleeding, easy bruising Allergic/Immunologic: ABSENT: seasonal rhinorrhea Physical Exam Vital Signs: Temp Pulse Resp BP Pulse Ox 97.5 F 18 120/81 99 06/11/19 16:15 06/11/19 19:16 06/11/19 19:16 06/11/19 19:01 Intake & Output 06/09/19 06/10/19 06/11/19 23:59 23:59 23:59 Weight 92.3 kg General appearance: PRESENT: no acute distress, cooperative, other - On BiPAP Head exam: PRESENT: atraumatic, normocephalic Eye exam: PRESENT: conjunctiva pink. ABSENT: conjunctival injection, scleral i cterus Ear exam: PRESENT: normal external ear exam. ABSENT: bleeding, drainage Mouth exam: PRESENT: dry mucosa, neck supple Neck exam: PRESENT: JVD - Bilateral. ABSENT: thyromegaly, tracheal deviation Respiratory exam: PRESENT: decreased breath sounds - Decreased breath sounds in both bases, rales - Fine bibasilar rales, symmetrical, other - On BiPAP Cardiovascular exam: PRESENT: gallop - S4 gallop, irregular rhythm - Irregularly irregular rate and rhythm. ABSENT: clicks, rubs Pulses: PRESENT: normal radial pulses, normal dorsalis pedis pul Vascular exam: PRESENT: normal capillary refill. ABSENT: pallor GI/Abdominal exam: PRESENT: normal bowel sounds, soft Rectal exam: PRESENT: deferred Extremities exam: ABSENT: joint swelling, pedal edema Musculoskeletal exam: ABSENT: deformity, dislocation Neurological exam: PRESENT: alert, oriented to person, oriented to place, oriented to time, oriented to situation, CN II-XII grossly intact. ABSENT: motor sensory deficit Psychiatric exam: PRESENT: appropriate affect, normal mood Skin exam: PRESENT: dry, intact, rash - Evidence of chronic psoriasis noted, warm, other - Multiple ecchymoses noted secondary to IV insertion sites. ABSENT: jaundice, urticaria Results Laboratory Results: 06/11/19 17:21 06/11/19 17:21 06/11/19 06/11/19 06/11/19 17:21 17:21 17:21 WBC 9.4 RBC 3.12 L Hgb 9.4 L Hct 29.5 L MCV 95 MCH 30.0 MCHC 31.7 L RDW 20.9 H Plt Count 273 Seg Neutrophils % Not Reportable Carbonic Acid HCO3/H2CO3 Ratio ABG pH ABG pCO2 ABG pO2 ABG HCO3 ABG O2 Saturation ABG Base Excess FiO2 Sodium 143.7 Potassium 5.7 H Chloride 103 Carbon Dioxide 31 H Anion Gap 10 BUN 67 H Creatinine 2.25 H Est GFR ( Amer) 25 L Glucose 142 H Lactic Acid 0.9 Calcium 8.9 Total Bilirubin 0.6 AST 30 Alkaline Phosphatase 83 Total Protein 6.7 Albumin 3.6 Urine Color Urine Appearance Urine pH Ur Specific [place] Urine Protein Urine Glucose (UA) Urine Ketones Urine Blood Urine Nitrite Ur Leukocyte Esterase Urine WBC (Auto) Urine RBC (Auto) 06/11/19 06/11/19 17:21 18:55 WBC RBC Hgb Hct MCV MCH MCHC RDW Plt Count Seg Neutrophils % Carbonic Acid 2.10 H HCO3/H2CO3 Ratio 16:1 ABG pH 7.30 L ABG pCO2 69.8 H* ABG pO2 79.9 L ABG HCO3 33.7 H ABG O2 Saturation 94.2 ABG Base Excess 5.8 FiO2 2 Sodium Potassium Chloride Carbon Dioxide Anion Gap BUN Creatinine Est GFR ( Amer) Glucose Lactic Acid Calcium Total Bilirubin AST Alkaline Phosphatase Total Protein Albumin Urine Color YELLOW Urine Appearance SLIGHTLY-CLOUDY Urine pH 5.0 Ur Specific [place] 1.014 Urine Protein 100 H Urine Glucose (UA) NEGATIVE Urine Ketones NEGATIVE Urine Blood NEGATIVE Urine Nitrite NEGATIVE Ur Leukocyte Esterase TRACE H Urine WBC (Auto) 4 Urine RBC (Auto) 1 06/11/19 06/11/19 17:21 17:21 Creatine Kinase 28 L CK-MB (CK-2) 1.30 Troponin I 0.028 NT-Pro-B Natriuret Pep 8620 H Impressions: Chest X-Ray 06/11/19 16:11 IMPRESSION: Basilar predominant pleural and parenchymal opacities that could represent a combination of pleural fluid, atelectasis, and in the proper clinical setting pneumonia. Assessment and Plan - Diagnosis (1) Acute on chronic systolic (congestive) heart failure Is this a current diagnosis for this admission?: Yes (2) Acute on chronic respiratory failure with hypoxia and hypercapnia Is this a current diagnosis for this admission?: Yes (3) Diabetes mellitus type 2 in obese Is this a current diagnosis for this admission?: Yes (4) Coronary artery disease Qualifiers: Coronary Disease-Associated Artery/Lesion type: [place] artery [place] vs. transplanted heart: [place] heart Associated angina: without angina Qualified Code(s): I25.10 - Atherosclerotic heart disease of [place] coronary artery without angina pectoris Is this a current diagnosis for this admission?: Yes (5) Chronic obstructive pulmonary disease Qualifiers: COPD type: unspecified COPD Qualified Code(s): J44.9 - Chronic obstructive pulmonary disease, unspecified Is this a current diagnosis for this admission?: Yes (6) Afib Qualifiers: Atrial fibrillation type: unspecified chronic Qualified Code(s): I48.20 - Chronic atrial fibrillation, unspecified; I48.2 - Chronic atrial fibrillation Is this a current diagnosis for this admission?: Yes (7) Hypothyroidism Qualifiers: Hypothyroidism type: unspecified Qualified Code(s): E03.9 - Hypothyroidism, unspecified Is this a current diagnosis for this admission?: Yes (8) Chronic kidney disease, stage IV (severe) Is this a current diagnosis for this admission?: Yes (9) Anemia Qualifiers: Anemia type: due to chronic kidney disease Chronic kidney disease stage: stage 4 (severe) Qualified Code(s): N18.4 - Chronic kidney disease, stage 4 (severe); D63.1 - Anemia in chronic kidney disease Is this a current diagnosis for this admission?: Yes - Plan Summary Summary: Patient is admitted to [facility] for routine supportive and symptomatic cares. Her heart failure be treated with IV Bumex and morphine sulfate 2 mg IV q. one hour as needed for severe dyspnea. Her respiratory failure will be treated with BiPAP until such time as she is improved enough to be treated with supplemental oxygen or be on room air. A Cook catheter was placed in the emergency room and will be maintained until no longer needed. Patient's chronic medication use for her chronic medical problems will be continued as appropriate. Daily metabolic profiles, CBCs and magnesium levels will be followed as part of her ongoing evaluation and treatment. - Time Time Spent with patient: 15-24 minutes Medications reviewed and adjusted accordingly: Yes Anticipated discharge: SNF - Inpatient Certification Based on my medical assessment, after consideration of the patient's comorbidities, presenting symptoms, or acuity I expect that the services needed warrant INPATIENT care.: Yes I certify that my determination is in accordance with my understanding of Medicare's requirements for reasonable and necessary INPATIENT services [42 CFR 412.3e].: Yes Medical Necessity: Significant Comorbidiites Make Outpatient Treatment Too Risky, Need Close Monitoring Due to Risk of Patient Decompensation, Need For Continuous Telemetry Monitoring, Risk of Complication if Not Cared For in Hospital
[2019-06-11] MEDS ORDERED: ACETAMINOPHEN 325 MG TABLET PO PRN (20:44)
[2019-06-11] MEDS ORDERED: MAGNESIUM HYDROXIDE SUSP 30 ML UDCUP PO PRN (20:44)
[2019-06-11] MEDS ORDERED: MAG HYDROX/AL HYDROX/SIMETH SUSP 30 ML UDCUP PO PRN (20:44)
[2019-06-11] MEDS ORDERED: LEVALBUTEROL HCL NEB 0.63 MG/3 ML AMPUL NEB PRN (20:44)
[2019-06-11] MEDS ORDERED: INSULIN REG, HUMAN 100 UNIT/ML 3 ML VIAL (PYX) SUBCUT PRN (20:44)
[2019-06-11] MEDS ORDERED: DEXTROSE 40% GEL 15 GM TUBE PO PRN ×2 (20:46)
[2019-06-11] MEDS ORDERED: DEXTROSE 50%-WATER 25 GM/50 ML DISP.SYRIN IV PRN ×2 (20:46)
[2019-06-11] MEDS ORDERED: GLUCAGON,HUMAN RECOMB 1 MG INJ IM PRN (20:46)
--- NOTE | 2019-06-11 21:15 | RADIOLOGY REPORT (SQ) ---
EXAM DESCRIPTION: RadLex: CT CHEST WITHOUT IV CONTRAST, CT ABDOMEN PELVIS WITHOUT IV CONTRAST CLINICAL HISTORY: 78 years Female; eval PNA; shortness of breath TECHNIQUE: CT of the chest , abdomen, and pelvis without contrast All CT scans at this facility use dose modulation, iterative reconstruction, and/or weight based dosing when appropriate to reduce radiation dose to as low as reasonably achievable. COMPARISON: CT abdomen pelvis 11/27/2018. No previous chest CT. FINDINGS: Chest: Lungs: Large low-density right pleural effusion, up to 5.7 cm AP thickness. There is associated significant compressive atelectasis of much of the right lung, including all of the right lower lobe. Moderate left pleural effusion is 2.6 cm AP thickness, with partial compressive atelectasis of the left lower lobe and posterior left upper lobe. Mild groundglass densities are noted in the aerated portions of both lungs. No pneumothorax. Mediastinum: Heart is enlarged. Coronary artery calcifications are noted. There is a small pericardial effusion. Bones:No acute bone findings. ABDOMEN: Liver: Free fluid over the liver 1 cm thick. Gallbladder: Slightly dense gallstone. No distention. Right kidney: No hydronephrosis. Left kidney: No hydronephrosis. No renal calculi. Spleen and pancreas are unremarkable Adrenal: 11 mm right adrenal nodule, 20 7HU, likely adenoma. 2.2 cm intraperitoneal nodule posterior to the right renal vein is focal calcification and has not changed since 11/27/2018. Vascular: Moderate aortic calcification. Pelvis: No small bowel distention. Colon: Multiple diverticula. No colonic distention or acute pericolonic edema. No free air. No significant pelvic fluid. There is diffuse subcutaneous edema in the abdominal wall and visualized portions of the legs, slightly worse on the left. IMPRESSION: 1. Bilateral pleural effusions with significant atelectasis of both lungs, worse on the right. Pulmonary edema. Consistent with congestive heart failure. 2. Cardiomegaly with small pericardial effusion 3. Diffuse subcutaneous edema in the abdominal wall and visualized legs, likely due to congestive heart failure. 4. Colonic diverticulosis but no evidence for acute diverticulitis. 5. Small amount of free fluid over the surface of the liver 6. No bowel obstruction or perforation.
[2019-06-11 21:46] LABS: ARTERIAL BLOOD H2CO3 2.02 mmol/L (1.05-1.35); ARTERIAL BLOOD HCO3 35.3 mmol/L (20-24); ARTERIAL BLOOD O2 SATURATION 90.5 % (94-98); ARTERIAL BLOOD PH 7.34 (7.35-7.45); ARTERIAL BLOOD PO2 64.2 mmHg (80-100); ARTERIAL BLOOD TOTAL CO2 37.4 mmol/L (21-25)
[2019-06-11 21:47] LABS: ARTERIAL BLOOD FIO2 30%
[2019-06-11] MEDS: HEPARIN SOD (PORCINE) 5,000 UNIT/ML 1 ML VIAL SUBCUT SCH (21:56)
[2019-06-11] MEDS: MORPHINE SULFATE 10 MG/ML INJ IV PRN (22:58)
[2019-06-12] MEDS ORDERED: LEVALBUTEROL HCL NEB 1.25 MG/3 ML AMPUL NEB SCH
[2019-06-12] MEDS ORDERED: IPRATROPIUM BROMIDE 0.02% NEB 0.5 MG/2.5 ML AMPUL NEB SCH
[2019-06-12 00:16] LABS: CREATINE KINASE MB 0.94 ng/mL (<4.55); TROPONIN I 0.021 ng/mL
[2019-06-12] MEDS: BUMETANIDE INJ/PF 1 MG/4 ML SDV IV SCH ×5 (00:38→23:34)
[2019-06-12 03:51] LABS: ABSOLUTE BASOPHILS # (AUTO) 0.1 10^3/uL (0.0-0.2); ABSOLUTE EOSINOPHILS # (AUTO) 0.1 10^3/uL (0.0-0.6); ABSOLUTE LYMPHOCYTES (AUTO) 0.5 10^3/uL (0.5-4.7); ABSOLUTE MONOCYTES (AUTO) 0.7 10^3/uL (0.1-1.4); BASOPHILS % (AUTO) 0.9 % (0-2); HEMATOCRIT 28.6 % (36.0-47.0); HEMOGLOBIN 9.1 g/dL (12.0-15.5); LYMPHOCYTES % (AUTO) 6.6 % (13-45); MEAN CORPUSCULAR HEMOGLOBIN 29.5 pg (27.0-33.4); MEAN CORPUSCULAR HGB CONC 31.8 g/dL (32.0-36.0); MEAN CORPUSCULAR VOLUME 93 fl (80-97); PLATELET COUNT 237 10^3/uL (150-450); RED BLOOD COUNT 3.09 10^6/uL (3.72-5.28); RED CELL DISTRIBUTION WIDTH 20.6 % (11.5-14.0); SEGMENTED NEUTROPHILS % (AUTO) 82.5 % (42-78); TOTAL CELLS COUNTED % (AUTO) 100 %; WHITE BLOOD COUNT 7.3 10^3/uL (4.0-10.5)
[2019-06-12] MEDS: HEPARIN SOD (PORCINE) 5,000 UNIT/ML 1 ML VIAL SUBCUT SCH ×3 (05:14→21:52)
[2019-06-12 05:20] LABS: TROPONIN I 0.023 ng/mL
[2019-06-12] MEDS ORDERED: BUDESONIDE NEB 0.5 MG/2 ML AMPUL NEB SCH (08:00)
--- NOTE | 2019-06-12 08:00 | PDOC PROGRESS REPORT ---
Subjective Progress Note for:: 06/12/19 Subjective:: 06/12/2019-no complaints this a.m. Reason For Visit: ACUTE ON CHRONIC DIASTOLIC CONGESTIVE Physical Exam Vital Signs: Temp Pulse Resp BP Pulse Ox 97.3 F 100 16 114/74 97 06/12/19 04:26 06/12/19 04:26 06/12/19 04:26 06/12/19 04:26 06/12/19 04:26 Intake & Output 06/11/19 06/12/19 06/13/19 06:59 06:59 06:59 Intake Total 0 Output Total 600 Balance -600 Weight 86.5 kg General appearance: PRESENT: no acute distress, well-developed, well-nourished Neck exam: ABSENT: carotid bruit, JVD, lymphadenopathy, thyromegaly Respiratory exam: PRESENT: decreased breath sounds, rales, symmetrical, unlabored, other - BiPAP Cardiovascular exam: PRESENT: RRR. ABSENT: diastolic murmur, rubs, systolic murmur Pulses: PRESENT: +1 pedal pulses bilateral Vascular exam: PRESENT: normal capillary refill GI/Abdominal exam: PRESENT: normal bowel sounds, soft. ABSENT: distended, guarding, mass, organolmegaly, rebound, tenderness Extremities exam: PRESENT: full ROM, +2 edema. ABSENT: calf tenderness, clubbing, pedal edema Neurological exam: PRESENT: alert, awake. ABSENT: motor sensory deficit Psychiatric exam: PRESENT: appropriate affect, normal mood. ABSENT: homicidal ideation, suicidal ideation Skin exam: PRESENT: dry, intact, warm. ABSENT: cyanosis, rash Results Laboratory Results: 06/12/19 03:39 06/11/19 17:21 06/11/19 06/11/19 06/11/19 17:21 17:21 17:21 WBC 9.4 RBC 3.12 L Hgb 9.4 L Hct 29.5 L MCV 95 MCH 30.0 MCHC 31.7 L RDW 20.9 H Plt Count 273 Seg Neutrophils % Not Reportable Carbonic Acid HCO3/H2CO3 Ratio ABG pH ABG pCO2 ABG pO2 ABG HCO3 ABG O2 Saturation ABG Base Excess FiO2 Sodium 143.7 Potassium 5.7 H Chloride 103 Carbon Dioxide 31 H Anion Gap 10 BUN 67 H Creatinine 2.25 H Est GFR ( Amer) 25 L Glucose 142 H Lactic Acid 0.9 Calcium 8.9 Magnesium Total Bilirubin 0.6 AST 30 Alkaline Phosphatase 83 Total Protein 6.7 Albumin 3.6 Urine Color Urine Appearance Urine pH Ur Specific [place] Urine Protein Urine Glucose (UA) Urine Ketones Urine Blood Urine Nitrite Ur Leukocyte Esterase Urine WBC (Auto) Urine RBC (Auto) 06/11/19 06/11/19 06/11/19 17:21 18:55 21:24 WBC RBC Hgb Hct MCV MCH MCHC RDW Plt Count Seg Neutrophils % Carbonic Acid 2.10 H 2.02 H HCO3/H2CO3 Ratio 16:1 17:1 ABG pH 7.30 L 7.34 L ABG pCO2 69.8 H* 67.0 H ABG pO2 79.9 L 64.2 L ABG HCO3 33.7 H 35.3 H ABG O2 Saturation 94.2 90.5 L ABG Base Excess 5.8 8.0 FiO2 2 30% Sodium Potassium Chloride Carbon Dioxide Anion Gap BUN Creatinine Est GFR ( Amer) Glucose Lactic Acid Calcium Magnesium Total Bilirubin AST Alkaline Phosphatase Total Protein Albumin Urine Color YELLOW Urine Appearance SLIGHTLY-CLOUDY Urine pH 5.0 Ur Specific [place] 1.014 Urine Protein 100 H Urine Glucose (UA) NEGATIVE Urine Ketones NEGATIVE Urine Blood NEGATIVE Urine Nitrite NEGATIVE Ur Leukocyte Esterase TRACE H Urine WBC (Auto) 4 Urine RBC (Auto) 1 06/12/19 06/12/19 03:39 03:39 WBC 7.3 RBC 3.09 L Hgb 9.1 L Hct 28.6 L MCV 93 MCH 29.5 MCHC 31.8 L RDW 20.6 H Plt Count 237 Seg Neutrophils % 82.5 H Carbonic Acid HCO3/H2CO3 Ratio ABG pH ABG pCO2 ABG pO2 ABG HCO3 ABG O2 Saturation ABG Base Excess FiO2 Sodium Potassium Chloride Carbon Dioxide Anion Gap BUN Creatinine Est GFR ( Amer) Glucose Lactic Acid Calcium Magnesium 2.8 H Total Bilirubin AST Alkaline Phosphatase Total Protein Albumin Urine Color Urine Appearance Urine pH Ur Specific [place] Urine Protein Urine Glucose (UA) Urine Ketones Urine Blood Urine Nitrite Ur Leukocyte Esterase Urine WBC (Auto) Urine RBC (Auto) 06/11/19 06/11/19 06/11/19 17:21 17:21 23:32 Creatine Kinase 28 L 24 L CK-MB (CK-2) 1.30 Troponin I 0.028 NT-Pro-B Natriuret Pep 8620 H 06/11/19 06/12/19 06/12/19 23:32 03:39 03:39 Creatine Kinase 25 L CK-MB (CK-2) 0.94 1.00 Troponin I 0.021 0.023 NT-Pro-B Natriuret Pep Impressions: Chest X-Ray 06/11/19 16:11 IMPRESSION: Basilar predominant pleural and parenchymal opacities that could represent a combination of pleural fluid, atelectasis, and in the proper clinical setting pneumonia. Chest CT 06/11/19 17:30 IMPRESSION: 1. Bilateral pleural effusions with significant atelectasis of both lungs, worse on the right. Pulmonary edema. Consistent with congestive heart failure. 2. Cardiomegaly with small pericardial effusion 3. Diffuse subcutaneous edema in the abdominal wall and visualized legs, likely due to congestive heart failure. 4. Colonic diverticulosis but no evidence for acute diverticulitis. 5. Small amount of free fluid over the surface of the liver 6. No bowel obstruction or perforation. Abdomen/Pelvis CT 06/11/19 17:31 IMPRESSION: 1. Bilateral pleural effusions with significant atelectasis of both lungs, worse on the right. Pulmonary edema. Consistent with congestive heart failure. 2. Cardiomegaly with small pericardial effusion 3. Diffuse subcutaneous edema in the abdominal wall and visualized legs, likely due to congestive heart failure. 4. Colonic diverticulosis but no evidence for acute diverticulitis. 5. Small amount of free fluid over the surface of the liver 6. No bowel obstruction or perforation. Assessment and Plan - Diagnosis (1) Acute on chronic systolic (congestive) heart failure Is this a current diagnosis for this admission?: Yes Plan: 06/12/2019-patient remains in acute phase. Patient is receiving Bumex 1 mg IV every 6. We will continue this until we see a significant bump in her creatinine. Patient remains on BiPAP 12/03 with 30%. (2) Acute on chronic respiratory failure with hypoxia and hypercapnia Is this a current diagnosis for this admission?: Yes Plan: 06/12/2019-patient remains on BiPAP at this time. Slow to arouse. I will obtain a stat ABG to determine if we need to change pressures on BiPAP or take other measures. (3) Diabetes mellitus type 2 in obese Is this a current diagnosis for this admission?: Yes Plan: 06/12/2019-stable at this time we will continue current therapies. (4) Coronary artery disease Qualifiers: Coronary Disease-Associated Artery/Lesion type: [place] artery [place] vs. transplanted heart: [place] heart Associated angina: without angina Qualified Code(s): I25.10 - Atherosclerotic heart disease of [place] coronary artery without angina pectoris Is this a current diagnosis for this admission?: Yes Plan: 06/12/2019-stable continue to follow (5) Atrial fibrillation Is this a current diagnosis for this admission?: Yes Plan: 06/02/2019-stable at this time continue to follow, continue all home medications once patient is able to swallow (6) Hypothyroidism Qualifiers: Hypothyroidism type: unspecified Qualified Code(s): E03.9 - Hypothyroidism, unspecified Is this a current diagnosis for this admission?: Yes Plan: 06/12/2019-continue current medications for hypothyroidism with patient is able to take p.o. (7) Chronic kidney disease, stage IV (severe) Is this a current diagnosis for this admission?: Yes Plan: 06/12/2019-awaiting a.m. labs will make change plan of care at that time. (8) Anemia Is this a current diagnosis for this admission?: Yes Plan: 06/22/2019-stable chronic continue to follow - Plan Summary Summary: Patient is admitted to [facility] for routine supportive and symptomatic cares. Her heart failure be treated with IV Bumex and morphine sulfate 2 mg IV q. one hour as needed for severe dyspnea. Her respiratory failure will be treated with BiPAP until such time as she is improved enough to be treated with supplemental oxygen or be on room air. A Cook catheter was placed in the emergency room and will be maintained until no longer needed. Patient's chronic medication use for her chronic medical problems will be continued as appropriate. Daily metabolic profiles, CBCs and magnesium levels will be followed as part of her ongoing evaluation and treatment. - Time Time Spent with patient: 15-24 minutes - Inpatient Certification Based on my medical assessment, after consideration of the patient's comorbidities, presenting symptoms, or acuity I expect that the services needed warrant INPATIENT care.: Yes I certify that my determination is in accordance with my understanding of Medicare's requirements for reasonable and necessary INPATIENT services [42 CFR 412.3e].: Yes Medical Necessity: Significant Comorbidiites Make Outpatient Treatment Too Risky, Need Close Monitoring Due to Risk of Patient Decompensation, Other - IV diuresis
[2019-06-12] MEDS ORDERED: AZTREONAM INJ 1 GM VIAL IV SCH (10:00)
[2019-06-12 10:04] LABS: ANION GAP 8 (5-19); BLOOD UREA NITROGEN 70 mg/dL (7-20); CALCIUM 8.9 mg/dL (8.4-10.2); CARBON DIOXIDE 30 mmol/L (22-30); CHLORIDE 103 mmol/L (98-107); GLUCOSE 117 mg/dL (75-110); POTASSIUM 5.4 mmol/L (3.6-5.0)
[2019-06-12] MEDS ORDERED: LIDOCAINE 1%/EPINEPHRINE INJ 20 ML VIAL ONE (10:04)
[2019-06-12 11:01] LABS: CREATINE KINASE MB 0.77 ng/mL (<4.55); TROPONIN I 0.024 ng/mL
--- NOTE | 2019-06-12 11:05 | RADIOLOGY REPORT (SQ) ---
EXAM DESCRIPTION: CHEST SINGLE VIEW COMPLETED DATE/TIME: 06/12/2019 10:29 am REASON FOR STUDY: SURGICAL CLEARANCE COMPARISON: CT chest 06/11/2019 Chest film 06/11/2019, 05/31/2019, 05/01/2019 EXAM PARAMETERS: NUMBER OF VIEWS: One view. TECHNIQUE: Single frontal radiographic view of the chest acquired. RADIATION DOSE: NA LIMITATIONS: None. FINDINGS: LUNGS AND PLEURA: Since 05/01/2019, the patient has accumulated moderate-sized bilateral araya bpulmonic pleural effusions right greater than left. This is similar compared to CT exam 06/11/2019. There is bibasilar airspace disease atelectasis versus pneumonia. No pneumothorax. MEDIASTINUM AND HILAR STRUCTURES: No masses. Contour normal. HEART AND VASCULAR STRUCTURES: Stable cardiomegaly BONES: No acute findings. HARDWARE: None in the chest. OTHER: No other significant finding. IMPRESSION: Moderate bilateral pleural effusions with partial collapse of the bilateral lower lobes, similar compared to CT exam 06/11/2019 TECHNICAL DOCUMENTATION: JOB ID: [id number] [employer]- All Rights Reserved Reading location - IP/workstation name: [facility]
[2019-06-12] MEDS: INSULIN REG, HUMAN 100 UNIT/ML 3 ML VIAL (PYX) SUBCUT SCH ×4 (11:32→21:53)
[2019-06-12] MEDS: METOPROLOL SUCCINATE 25 MG TAB.SR.24H PO SCH ×2 (11:36→22:00)
[2019-06-12] MEDS: DILTIAZEM HCL 120 MG CAP.SR.24H PO SCH (11:36)
[2019-06-12] MEDS: FLUTICASONE/UMECLIDIN/VILANTER 100-62.5-25 MCG/DOSE IH SCH (11:36)
[2019-06-12] MEDS: DOCUSATE SODIUM 100 MG CAPSULE PO SCH ×2 (11:36→17:19)
[2019-06-12] MEDS: LOSARTAN POTASSIUM 25 MG TABLET PO SCH (11:36)
[2019-06-12] MEDS: ALLOPURINOL 100 MG TABLET PO SCH (11:36)
--- NOTE | 2019-06-12 11:49 | EKG REPORT ---
SEVERITY:- ABNORMAL ECG - ATRIAL FIBRILLATION PROBABLE INFERIOR INFARCT, AGE INDETERMINATE ANTERIOR INFARCT, OLD : Confirmed by: Viviana Kaplan MD 12-Jun-2019 11:48:21
--- NOTE | 2019-06-12 12:29 | CRITICAL CARE ADMISSION REPORT ---
HPI Date:: 06/12/19 Time:: 10:30 Reason for ICU Reason:: Need for central line, recurrent CHF. HPI: This patient is an 78 yo woman apparently well known to the medical service for CHF and recurrent issues. Her friend leona that she get CHF, is treated, her renal function declines at which time she gets anemic. Blood transfusion puts her back in CHF and the cycle starts again. Tis is a god description of CHF with concomittant renal disease. She curently is in CHF, which also makes her COPD active, receiving lasix and bipap. She may well decompensate when in [facility]. She is borderline right now not needing an ICU level of care. We will accept the patient in ICU transfer to place line. If she does well and is stable Dr. Mock said he would not be opposed to her returning to 313. History obtained from:: Patient, friend and PA Day - Diagnosis/Plan (1) CHF (congestive heart failure) Qualifiers: Heart failure type: unspecified Heart failure chronicity: acute on chronic Qualified Code(s): I50.9 - Heart failure, unspecified Is this a current diagnosis for this admission?: Yes Plan: Needs lasix and central line for poor access. (2) COPD exacerbation Is this a current diagnosis for this admission?: Yes Plan: No current wheezing. - . Plan Summary: Place central line if stable after this transfer back to floor. Past Medical History Cardiac Medical History: Reports: Atrial Fibrillation, Congestive Heart Failure, Coronary Artery Disease - With 2 stents in the past, Hyperlipidema, Hypertension Pulmonary Medical History: Reports: Chronic Obstructive Pulmonary Disease (COPD), Pneumonia, Respiratory Failure Denies: Asthma, Tuberculosis EENT Medical History: Denies: Cataracts, Ears - Hearing aids Neurological Medical History: Denies: Hemorrhagic CVA, Ischemic CVA, Migraine, Seizures Endocrine Medical History: Reports: Diabetes Mellitus Type 2 Denies: Diabetes Mellitus Type 1, Hyperthyroidism, Hypothyroidism Renal/ Medical History: Reports: Chronic Kidney Disease Denies: End Stage Renal Disease, Nephrolithiasis Malignancy Medical History: Reports: None GI Medical History: Reports: Gastroesophageal Reflux Disease Denies: Cirrhosis, Crohn's Disease, Hepatitis, Ulcerative Colitis Musculoskeltal Medical History: Reports: Arthritis, Gout Skin Medical History: Reports: Psoriasis Denies: Eczema Psychiatric Medical History: Reports: Depression Denies: Alcohol Dependency, Bipolar Disorder, Substance Abuse, Tobacco Dependency Traumatic Medical History: Reports: None Hematology: Reports: Anemia - Chronic Denies: Bleeding Tendencies Infectious Medical History: Reports: None Past Surgical History Past Surgical History: Reports: Cardiac Catheterization, Coronary Stent - X2, Herniorrhaphy, Hysterectomy Denies: Pacemaker Social/Family History - Social History Lives with: Prison Smoking Status: Former Smoker Frequency of Alcohol Use: None Hx Recreational Drug Use: No Drugs: None Hx Prescription Drug Abuse: No - Medication/Allergies Home Medications: Acetaminophen [Tylenol 325 mg Tablet] 650 mg PO Q6HP PRN 06/01/19 Apremilast [Otezla] 30 mg PO Q12 06/01/19 Cyclosporine 0.05% Oph Emulsio [Restasis 0.05% Oph Emulsion Pf 0.4 ml] 1 drop OU DAILY 06/01/19 Diltiazem HCl [Cardizem Cd 120 mg Capsule] 120 mg PO QAM 06/01/19 Fexofenadine HCl [Hyacinth] 180 mg PO QAM 06/01/19 Fluticasone/Umeclidin/Vilanter [Trelegy 100-62.5-25 Mcg Ellipta 14 Dose/Dpi] 1 puff IH DAILY 06/01/19 Furosemide [Lasix 20 mg Tablet] 20 mg PO BID 06/01/19 Insulin Glargine,Hum.rec.anlog [Basaglar Kwikpen U-100] 20 units SQ QHS 06/01/19 Insulin Lispro [Humalog Insulin (Lispro) 100 unit/mL] 0 units SQ .PERSL IDINGSCALE 06/01/19 Levothyroxine Sodium 75 mcg PO Q6AM 06/01/19 Lidocaine [Lidoderm 5% (700 mg) Transdermal Patch] 1 patch TD DAILY 06/01/19 Mag Hydrox/Al Hydrox/Simeth [Maalox Plus Susp 30 Udcup] 20 ml PO DAILYP PRN 06/01/19 Melatonin [Melatonin 5 mg Tablet] 5 mg PO QHS 06/01/19 Metoprolol Succinate [Toprol Xl 25 mg Tab.sr] 25 mg PO Q12 06/01/19 Mirtazapine [Remeron] 7.5 mg PO QHS 06/01/19 Ondansetron HCl [Zofran 4 mg Tablet] 4 mg PO Q12HP PRN 06/01/19 Pantoprazole Sodium [Protonix [address] Tablet] 40 mg PO Q6AM 06/01/19 Prednisone [Deltasone 5 mg Tablet] 5 mg PO QAM 06/01/19 Tiotropium [place] [Spiriva Handihaler 5 Cap/Kit (18 Mcg/Cap)] 1 cap IH DAILY 06/01/19 Acetaminophen [Tylenol 325 mg Tablet] 650 mg PO Q4HP PRN tablet 06/03/19 Allopurinol [Zyloprim 100 mg Tablet] 100 mg PO DAILY #30 tablet 06/03/19 Cephalexin Monohydrate [Keflex 250 mg Capsule] 250 mg PO Q8 #21 capsule 06/03/19 Sertraline HCl [Zoloft 50 mg Tablet] 25 mg PO DAILY #30 06/03/19 Allergies/Adverse Reactions: adhesive tape Allergy (Verified 05/15/19 14:02) methotrexate [Methotrexate] Allergy (Verified 04/20/19 16:05) Penicillins Allergy (Verified 04/21/19 11:29) apremilast [From Otezla] Adverse Reaction (Verified 06/11/19 23:32) Renal failure Review of Systems Constitutional: ABSENT: chills, fever(s), headache(s), weight gain, weight loss Eyes: ABSENT: visual disturbances Ears: ABSENT: hearing changes Cardiovascular: PRESENT: orthropnea Respiratory: PRESENT: dyspnea, sputum Gastrointestinal: ABSENT: abdominal pain, constipation, diarrhea, hematemesis, hematochezia, nausea, vomiting Psychiatric: ABSENT: anxiety, depression, homidical ideation, suicidal ideation Endocrine: ABSENT: cold intolerance, heat intolerance, polydipsia, polyuria Hematologic/Lymphatic: ABSENT: easy bleeding, easy bruising Physical Exam Vital Signs: Temp Pulse Resp BP Pulse Ox 97.5 F 101 H 34 H 119/62 100 06/12/19 08:57 06/12/19 08:57 06/12/19 08:57 06/12/19 08:57 06/12/19 08:57 Intake & Output 06/11/19 06/12/19 06/13/19 06:59 06:59 06:59 Intake Total 0 Output Total 600 Balance -600 Weight 86.5 kg Weight/Height Weight 86.5 kg Height 5 ft 2 in General appearance: PRESENT: cooperative, hard of hearing, mild distress Head exam: PRESENT: atraumatic, normocephalic Eye exam: PRESENT: conjunctiva pink, EOMI, PERRLA. ABSENT: scleral icterus Ear exam: PRESENT: normal external ear exam Mouth exam: PRESENT: moist, tongue midline Respiratory exam: PRESENT: clear to auscultation kaylee, decreased breath sounds. ABSENT: rales, rhonchi, wheezes Cardiovascular exam: PRESENT: irregular rhythm. ABSENT: diastolic murmur, rubs, systolic murmur Vascular exam: PRESENT: normal capillary refill Rectal exam: PRESENT: deferred Extremities exam: PRESENT: pedal edema Neurological exam: PRESENT: alert, awake, oriented to person, oriented to place, oriented to time, oriented to situation Additional comments: Thin skin with abrasions C/W chronic steroid use. Several skin tears on arms Laboratory/Radiographs Laboratory Results: 06/12/19 03:39 06/12/19 03:39 06/11/19 06/11/19 06/11/19 17:21 17:21 17:21 WBC 9.4 RBC 3.12 L Hgb 9.4 L Hct 29.5 L MCV 95 MCH 30.0 MCHC 31.7 L RDW 20.9 H Plt Count 273 Seg Neutrophils % Not Reportable Carbonic Acid HCO3/H2CO3 Ratio ABG pH ABG pCO2 ABG pO2 ABG HCO3 ABG O2 Saturation ABG Base Excess FiO2 Sodium 143.7 Potassium 5.7 H Chloride 103 Carbon Dioxide 31 H Anion Gap 10 BUN 67 H Creatinine 2.25 H Est GFR ( Amer) 25 L Glucose 142 H Lactic Acid 0.9 Calcium 8.9 Magnesium Total Bilirubin 0.6 AST 30 Alkaline Phosphatase 83 Total Protein 6.7 Albumin 3.6 Urine Color Urine Appearance Urine pH Ur Specific [place] Urine Protein Urine Glucose (UA) Urine Ketones Urine Blood Urine Nitrite Ur Leukocyte Esterase Urine WBC (Auto) Urine RBC (Auto) 06/11/19 06/11/19 06/11/19 17:21 18:55 21:24 WBC RBC Hgb Hct MCV MCH MCHC RDW Plt Count Seg Neutrophils % Carbonic Acid 2.10 H 2.02 H HCO3/H2CO3 Ratio 16:1 17:1 ABG pH 7.30 L 7.34 L ABG pCO2 69.8 H* 67.0 H ABG pO2 79.9 L 64.2 L ABG HCO3 33.7 H 35.3 H ABG O2 Saturation 94.2 90.5 L ABG Base Excess 5.8 8.0 FiO2 2 30% Sodium Potassium Chloride Carbon Dioxide Anion Gap BUN Creatinine Est GFR ( Amer) Glucose Lactic Acid Calcium Magnesium Total Bilirubin AST Alkaline Phosphatase Total Protein Albumin Urine Color YELLOW Urine Appearance SLIGHTLY-CLOUDY Urine pH 5.0 Ur Specific [place] 1.014 Urine Protein 100 H Urine Glucose (UA) NEGATIVE Urine Ketones NEGATIVE Urine Blood NEGATIVE Urine Nitrite NEGATIVE Ur Leukocyte Esterase TRACE H Urine WBC (Auto) 4 Urine RBC (Auto) 1 06/12/19 06/12/19 06/12/19 03:39 03:39 03:39 WBC 7.3 RBC 3.09 L Hgb 9.1 L Hct 28.6 L MCV 93 MCH 29.5 MCHC 31.8 L RDW 20.6 H Plt Count 237 Seg Neutrophils % 82.5 H Carbonic Acid HCO3/H2CO3 Ratio ABG pH ABG pCO2 ABG pO2 ABG HCO3 ABG O2 Saturation ABG Base Excess FiO2 Sodium 141.3 Potassium 5.4 H Chloride 103 Carbon Dioxide 30 Anion Gap 8 BUN 70 H Creatinine 2.30 H Est GFR ( Amer) 25 L Glucose 117 H Lactic Acid Calcium 8.9 Magnesium 2.8 H Total Bilirubin AST Alkaline Phosphatase Total Protein Albumin Urine Color Urine Appearance Urine pH Ur Specific [place] Urine Protein Urine Glucose (UA) Urine Ketones Urine Blood Urine Nitrite Ur Leukocyte Esterase Urine WBC (Auto) Urine RBC (Auto) 06/11/19 06/11/19 06/11/19 17:21 17:21 23:32 Creatine Kinase 28 L 24 L CK-MB (CK-2) 1.30 Troponin I 0.028 NT-Pro-B Natriuret Pep 8620 H 06/11/19 06/12/19 06/12/19 23:32 03:39 03:39 Creatine Kinase 25 L CK-MB (CK-2) 0.94 1.00 Troponin I 0.021 0.023 NT-Pro-B Natriuret Pep 06/12/19 06/12/19 10:18 10:18 Creatine Kinase 24 L CK-MB (CK-2) 0.77 Troponin I 0.024 NT-Pro-B Natriuret Pep Impressions: Chest CT 06/11/19 17:30 IMPRESSION: 1. Bilateral pleural effusions with significant atelectasis of both lungs, worse on the right. Pulmonary edema. Consistent with congestive heart failure. 2. Cardiomegaly with small pericardial effusion 3. Diffuse subcutaneous edema in the abdominal wall and visualized legs, likely due to congestive heart failure. 4. Colonic diverticulosis but no evidence for acute diverticulitis. 5. Small amount of free fluid over the surface of the liver 6. No bowel obstruction or perforation. Abdomen/Pelvis CT 06/11/19 17:31 IMPRESSION: 1. Bilateral pleural effusions with significant atelectasis of both lungs, worse on the right. Pulmonary edema. Consistent with congestive heart failure. 2. Cardiomegaly with small pericardial effusion 3. Diffuse subcutaneous edema in the abdominal wall and visualized legs, likely due to congestive heart failure. 4. Colonic diverticulosis but no evidence for acute diverticulitis. 5. Small amount of free fluid over the surface of the liver 6. No bowel obstruction or perforation. Chest X-Ray 06/12/19 00:00 IMPRESSION: Moderate bilateral pleural effusions with partial collapse of the bilateral lower lobes, similar compared to CT exam 06/11/2019 All labs, radiographs, diagnostic studies and EKGs were personally reviewed: Yes In addition, reports of radiographic and diagnostic studies were read: Yes Critical Time Critical Time (minutes): 40 -: The care of a critically ill patient is dynamic. This note represents a static moment in the admission process. orders and treatments may be given simulataneously and urgentl, and time is not screening representative of the treatment process. This patient requires Critical Care secondary to life threating organ or limb dy sfunction. Without the need for Critical Care services, the patient is at risk for increasid mortality and morbidity.
[2019-06-12] MEDS ORDERED: LIDOCAINE 1% INJ-PF (10 MG/ML) 30 ML SDV ONE (16:14)
--- NOTE | 2019-06-12 17:02 | PDOC CRITICAL CARE PROG REPORT ---
General Date:: 06/12/19 ICU Day:: 1 Ventilator Day:: 0 Hospital Day:: 2 Events in the past 12 to 24 Hours:: Received central line and came off bipap. Review of systems relevant to events:: Pulmonary, breathing a bit easier. Reason for ICU Addmission:: Need for central line, recurrent CHF. - Medications: Medications reviewed and adjusted accordingly: Yes Vasopressors:: None Sedation:: No Physical Exam Vital Signs: Temp Pulse Resp BP Pulse Ox 97.5 F 91 20 108/69 100 06/12/19 08:57 06/12/19 14:00 06/12/19 15:21 06/12/19 15:21 06/12/19 15:21 Intake & Output 06/11/19 06/12/19 06/13/19 06:59 06:59 06:59 Intake Total 0 Output Total 600 Balance -600 Weight 86.5 kg Weight/Height Weight 86.5 kg Height 5 ft 2 in General appearance: PRESENT: mild distress, well-developed, well-nourished Head exam: PRESENT: atraumatic, normocephalic Eye exam: PRESENT: conjunctiva pink, EOMI, PERRLA. ABSENT: scleral icterus Ear exam: PRESENT: normal external ear exam Mouth exam: PRESENT: moist, tongue midline Neck exam: ABSENT: carotid bruit, JVD, lymphadenopathy, thyromegaly Respiratory exam: PRESENT: clear to auscultation kaylee, decreased breath sounds, prolonged expiratory phas, other - Mild increased WOB. ABSENT: rales, rhonchi, wheezes Cardiovascular exam: PRESENT: irregular rhythm, tachycardia, other - Rate 85-105 GI/Abdominal exam: PRESENT: normal bowel sounds, soft. ABSENT: distended, guarding, mass, organolmegaly, rebound, tenderness Rectal exam: PRESENT: deferred Musculoskeletal exam: PRESENT: normal inspection Neurological exam: PRESENT: alert, awake, oriented to person, oriented to place Additional comments: Still with steroid skin. Small hematoma in RIJ. Line in R subclavian Laboratory/Radiographs Laboratory Results: 06/12/19 03:39 06/12/19 03:39 06/11/19 06/11/19 06/11/19 17:21 17:21 17:21 WBC 9.4 RBC 3.12 L Hgb 9.4 L Hct 29.5 L MCV 95 MCH 30.0 MCHC 31.7 L RDW 20.9 H Plt Count 273 Seg Neutrophils % Not Reportable Carbonic Acid HCO3/H2CO3 Ratio ABG pH ABG pCO2 ABG pO2 ABG HCO3 ABG O2 Saturation ABG Base Excess FiO2 Sodium 143.7 Potassium 5.7 H Chloride 103 Carbon Dioxide 31 H Anion Gap 10 BUN 67 H Creatinine 2.25 H Est GFR ( Amer) 25 L Glucose 142 H Lactic Acid 0.9 Calcium 8.9 Magnesium Total Bilirubin 0.6 AST 30 Alkaline Phosphatase 83 Total Protein 6.7 Albumin 3.6 Urine Color Urine Appearance Urine pH Ur Specific [place] Urine Protein Urine Glucose (UA) Urine Ketones Urine Blood Urine Nitrite Ur Leukocyte Esterase Urine WBC (Auto) Urine RBC (Auto) 06/11/19 06/11/19 06/11/19 17:21 18:55 21:24 WBC RBC Hgb Hct MCV MCH MCHC RDW Plt Count Seg Neutrophils % Carbonic Acid 2.10 H 2.02 H HCO3/H2CO3 Ratio 16:1 17:1 ABG pH 7.30 L 7.34 L ABG pCO2 69.8 H* 67.0 H ABG pO2 79.9 L 64.2 L ABG HCO3 33.7 H 35.3 H ABG O2 Saturation 94.2 90.5 L ABG Base Excess 5.8 8.0 FiO2 2 30% Sodium Potassium Chloride Carbon Dioxide Anion Gap BUN Creatinine Est GFR ( Amer) Glucose Lactic Acid Calcium Magnesium Total Bilirubin AST Alkaline Phosphatase Total Protein Albumin Urine Color YELLOW Urine Appearance SLIGHTLY-CLOUDY Urine pH 5.0 Ur Specific [place] 1.014 Urine Protein 100 H Urine Glucose (UA) NEGATIVE Urine Ketones NEGATIVE Urine Blood NEGATIVE Urine Nitrite NEGATIVE Ur Leukocyte Esterase TRACE H Urine WBC (Auto) 4 Urine RBC (Auto) 1 06/12/19 06/12/19 06/12/19 03:39 03:39 03:39 WBC 7.3 RBC 3.09 L Hgb 9.1 L Hct 28.6 L MCV 93 MCH 29.5 MCHC 31.8 L RDW 20.6 H Plt Count 237 Seg Neutrophils % 82.5 H Carbonic Acid HCO3/H2CO3 Ratio ABG pH ABG pCO2 ABG pO2 ABG HCO3 ABG O2 Saturation ABG Base Excess FiO2 Sodium 141.3 Potassium 5.4 H Chloride 103 Carbon Dioxide 30 Anion Gap 8 BUN 70 H Creatinine 2.30 H Est GFR ( Amer) 25 L Glucose 117 H Lactic Acid Calcium 8.9 Magnesium 2.8 H Total Bilirubin AST Alkaline Phosphatase Total Protein Albumin Urine Color Urine Appearance Urine pH Ur Specific [place] Urine Protein Urine Glucose (UA) Urine Ketones Urine Blood Urine Nitrite Ur Leukocyte Esterase Urine WBC (Auto) Urine RBC (Auto) 06/11/19 06/11/19 06/11/19 17:21 17:21 23:32 Creatine Kinase 28 L 24 L CK-MB (CK-2) 1.30 Troponin I 0.028 NT-Pro-B Natriuret Pep 8620 H 06/11/19 06/12/19 06/12/19 23:32 03:39 03:39 Creatine Kinase 25 L CK-MB (CK-2) 0.94 1.00 Troponin I 0.021 0.023 NT-Pro-B Natriuret Pep 06/12/19 06/12/19 10:18 10:18 Creatine Kinase 24 L CK-MB (CK-2) 0.77 Troponin I 0.024 NT-Pro-B Natriuret Pep Impressions: Chest CT 06/11/19 17:30 IMPRESSION: 1. Bilateral pleural effusions with significant atelectasis of both lungs, worse on the right. Pulmonary edema. Consistent with congestive heart failure. 2. Cardiomegaly with small pericardial effusion 3. Diffuse subcutaneous edema in the abdominal wall and visualized legs, likely due to congestive heart failure. 4. Colonic diverticulosis but no evidence for acute diverticulitis. 5. Small amount of free fluid over the surface of the liver 6. No bowel obstruction or perforation. Abdomen/Pelvis CT 06/11/19 17:31 IMPRESSION: 1. Bilateral pleural effusions with significant atelectasis of both lungs, worse on the right. Pulmonary edema. Consistent with congestive heart failure. 2. Cardiomegaly with small pericardial effusion 3. Diffuse subcutaneous edema in the abdominal wall and visualized legs, likely due to congestive heart failure. 4. Colonic diverticulosis but no evidence for acute diverticulitis. 5. Small amount of free fluid over the surface of the liver 6. No bowel obstruction or perforation. All labs, radiographs, diagnostic studies and EKGs were personally reviewed: Yes In addition, reports of radiographic and diagnostic studies were read: Yes Assessment and Plan - Diagnosis (1) CHF (congestive heart failure) Qualifiers: Heart failure type: unspecified Heart failure chronicity: acute on chronic Qualified Code(s): I50.9 - Heart failure, unspecified Is this a current diagnosis for this admission?: Yes Plan: Still in mild CHF by post line CXR. No ptx. Veronika at [facility]. (2) COPD exacerbation Is this a current diagnosis for this admission?: Yes Plan Summary: Back to [facility] [place] Critical Time Critical Time (minutes): 15 Level of Care: [facility] Anticipated discharge: SNF Within: Other -: 1. The care of a critical patient is a dynamic process. This note is a videotape sales representative synopsis but static in nature. The timeframe for treatments given in order is not necessary the actual time these treatments may have been done. 2. This patient requires critical care secondary to ongoing requirements for therapy not offered or safe outside the critical care environment. Transfer to a lower level of care with altered life or limb morbidity and mortality. 3. Multidisciplinary rounds completed. 4. ABCDE bundle addressed.
--- NOTE | 2019-06-12 17:48 | Operative Report ---
Operative Report DATE OF SURGERY: 06/12/19 PREOPERATIVE DIAGNOSIS: Exaccerbation of CHF POSTOPERATIVE DIAGNOSIS: same OPERATION: 1. US directed right Subclavian Triple lumen catheter insertion. 2. Interpretation of Portable CXRAY SURGEON: JANE PACHECO [employer] TEAM MEMBER: none ANESTHESIA: Local TISSUE REMOVED OR ALTERED: scant COMPLICATIONS: none ESTIMATED BLOOD LOSS: 14 cc INTRAOPERATIVE FINDINGS: see below PROCEDURE: Patient was transferred from the third floor to the intensive care unit for monitoring. She is placed in semirecumbent position. Consent was provided. The patient was attached to monitoring devices. Oxygen was supported nasal cannula. The right neck and right subclavian areas were prepped and draped with Betadine. Surgical timeout conducted. Initial attempts were made to cannulate the right internal jugular vein. Skin was anesthetized 1% plain lidocaine. Using ultrasound as a guide, cannulation was made with the 18-gauge needle into the right internal jugular vein, and wire threaded into the vein, however hematoma resulted on 2 occasions. Therefore this approach was aborted. The patient did not develop worsening respiratory distress. The right subclavian area was approached. Ultrasound use as a guide. A right subclavian triple-lumen central access catheter was threaded into position uneventfully without hematoma. The catheter was aspirated and flushed with heparinized saline. Catheter was secured to the skin at 3 sites with 3-0 silk suture Biopatch and sterile dressing applied. Portable upright chest x-ray confirmed successful placement of the catheter in the right subclavian position, with tip in the superior vena cava. No evidence of pneumothorax. Results of the x-ray shared with the nursing staff. Patient tolerated the procedure well. She will be transferred to the floor in stable condition.
[2019-06-12] MEDS ORDERED: BUMETANIDE INJ/PF 1 MG/4 ML SDV IV ONE (18:23)
[2019-06-12] MEDS: AZTREONAM 0.5 GM in DEXTROSE 5%-WATER 50 ML IV SCH ×2 (18:31→21:52)
--- NOTE | 2019-06-12 20:08 | RADIOLOGY REPORT (SQ) ---
EXAM DESCRIPTION: CHEST SINGLE VIEW COMPLETED DATE/TIME: 06/12/2019 4:51 pm REASON FOR STUDY: CENTRAL LINE PLACEMENT COMPARISON: Chest x-ray 06/12/2019 EXAM PARAMETERS: NUMBER OF VIEWS: One view. TECHNIQUE: Single frontal radiographic view of the chest acquired. RADIATION DOSE: NA LIMITATIONS: Patient positioning. FINDINGS: LUNGS AND PLEURA: The patient is rotated. There are bilateral moderate pleural effusions with bibasilar airspace opacities. No pneumothorax. MEDIASTINUM AND HILAR STRUCTURES: No masses. Contour normal. HEART AND VASCULAR STRUCTURES: The heart is enlarged. There is mild vascular congestion. BONES: No acute findings. HARDWARE: Interval placement of a right-sided central line with the tip overlying the atriocaval junc tion. IMPRESSION: No pneumothorax status post central line placement. Cardiomegaly and mild vascular nhan estion. Moderate bilateral pleural effusions with bibasilar airspace opacities, may be secondary to atelectasis or pneumonia. TECHNICAL DOCUMENTATION: JOB ID: [id number] 2010 [employer]- All Rights Reserved Reading location - IP/workstation name: [email or web address]
[2019-06-12] MEDS: INSULIN GLARGINE,HUM.REC.ANLOG 1,000 UNIT/10 ML VIAL SUBCUT SCH (21:53)
[2019-06-12] MEDS: MORPHINE SULFATE 10 MG/ML INJ IV PRN (23:45)
[2019-06-13] MEDS: BUMETANIDE INJ/PF 1 MG/4 ML SDV IV SCH ×3 (05:10→17:20)
[2019-06-13] MEDS: AZTREONAM 0.5 GM in DEXTROSE 5%-WATER 50 ML IV SCH ×3 (05:10→23:06)
[2019-06-13] MEDS: HEPARIN SOD (PORCINE) 5,000 UNIT/ML 1 ML VIAL SUBCUT SCH ×3 (05:12→21:42)
[2019-06-13 06:34] LABS: ABSOLUTE BASOPHILS # (AUTO) 0.1 10^3/uL (0.0-0.2); ABSOLUTE EOSINOPHILS # (AUTO) 0.1 10^3/uL (0.0-0.6); ABSOLUTE LYMPHOCYTES (AUTO) 0.7 10^3/uL (0.5-4.7); ABSOLUTE MONOCYTES (AUTO) 0.5 10^3/uL (0.1-1.4); ABSOLUTE NEUT (AUTO) 5.3 10^3/uL (1.7-8.2); BASOPHILS % (AUTO) 1.2 % (0-2); EOSINOPHILS % (AUTO) 1.8 % (0-6); HEMOGLOBIN 8.5 g/dL (12.0-15.5); LYMPHOCYTES % (AUTO) 10.1 % (13-45); MEAN CORPUSCULAR HEMOGLOBIN 29.5 pg (27.0-33.4); MEAN CORPUSCULAR HGB CONC 31.4 g/dL (32.0-36.0); MEAN CORPUSCULAR VOLUME 94 fl (80-97); PLATELET COUNT 261 10^3/uL (150-450); RED BLOOD COUNT 2.88 10^6/uL (3.72-5.28); RED CELL DISTRIBUTION WIDTH 20.8 % (11.5-14.0); SEGMENTED NEUTROPHILS % (AUTO) 78.9 % (42-78); TOTAL CELLS COUNTED % (AUTO) 100 %; WHITE BLOOD COUNT 6.7 10^3/uL (4.0-10.5)
[2019-06-13 06:47] LABS: ANION GAP 6 (5-19); BLOOD UREA NITROGEN 72 mg/dL (7-20); CALCIUM 8.4 mg/dL (8.4-10.2); CARBON DIOXIDE 34 mmol/L (22-30); CHLORIDE 103 mmol/L (98-107); GLUCOSE 89 mg/dL (75-110)
[2019-06-13] MEDS ORDERED: DILTIAZEM HCL 120 MG CAP.SR.24H PO SCH (08:00)
--- NOTE | 2019-06-13 08:01 | PDOC PROGRESS REPORT ---
Subjective Progress Note for:: 06/13/19 Subjective:: 06/12/2019-no complaints this a.m. 06/13/2019-no complaints Reason For Visit: ACUTE ON CHRONIC DIASTOLIC CONGESTIVE Physical Exam Vital Signs: Temp Pulse Resp BP Pulse Ox 98.0 F 87 16 113/60 98 06/13/19 03:26 06/13/19 07:00 06/13/19 03:26 06/13/19 03:26 06/13/19 03:26 Intake & Output 06/12/19 06/13/19 06/14/19 06:59 06:59 06:59 Intake Total 0 Output Total 600 575 Balance -600 -575 Weight 86.5 kg 86.5 kg General appearance: PRESENT: no acute distress, well-developed, well-nourished Neck exam: ABSENT: carotid bruit, JVD, lymphadenopathy, thyromegaly Respiratory exam: PRESENT: decreased breath sounds, rales, symmetrical, unlabored Cardiovascular exam: PRESENT: irregular rhythm. ABSENT: diastolic murmur, rubs, systolic murmur Pulses: PRESENT: +1 pedal pulses bilateral Vascular exam: PRESENT: normal capillary refill GI/Abdominal exam: PRESENT: normal bowel sounds, soft. ABSENT: distended, guarding, mass, organolmegaly, rebound, tenderness Extremities exam: PRESENT: full ROM. ABSENT: calf tenderness, clubbing, pedal edema Neurological exam: PRESENT: alert, awake, oriented to person, oriented to place, oriented to time, oriented to situation, CN II-XII grossly intact. ABSENT: motor sensory deficit Psychiatric exam: PRESENT: appropriate affect, normal mood. ABSENT: homicidal ideation, suicidal ideation Skin exam: PRESENT: dry, intact, warm. ABSENT: cyanosis, rash Results Laboratory Results: 06/13/19 05:00 06/13/19 05:00 06/12/19 06/13/19 06/13/19 03:39 05:00 05:00 WBC 6.7 RBC 2.88 L Hgb 8.5 L Hct 27.0 L MCV 94 MCH 29.5 MCHC 31.4 L RDW 20.8 H Plt Count 261 Seg Neutrophils % 78.9 H Sodium 141.3 143.3 Potassium 5.4 H 5.0 Chloride 103 103 Carbon Dioxide 30 34 H Anion Gap 8 6 BUN 70 H 72 H Creatinine 2.30 H 2.71 H Est GFR ( Amer) 25 L 20 L Glucose 117 H 89 Calcium 8.9 8.4 06/11/19 06/11/19 06/11/19 17:21 17:21 23:32 Creatine Kinase 28 L 24 L CK-MB (CK-2) 1.30 Troponin I 0.028 NT-Pro-B Natriuret Pep 8620 H 06/11/19 06/12/19 06/12/19 23:32 03:39 03:39 Creatine Kinase 25 L CK-MB (CK-2) 0.94 1.00 Troponin I 0.021 0.023 NT-Pro-B Natriuret Pep 06/12/19 06/12/19 10:18 10:18 Creatine Kinase 24 L CK-MB (CK-2) 0.77 Troponin I 0.024 NT-Pro-B Natriuret Pep Impressions: Chest CT 06/11/19 17:30 IMPRESSION: 1. Bilateral pleural effusions with significant atelectasis of both lungs, worse on the right. Pulmonary edema. Consistent with congestive heart failure. 2. Cardiomegaly with small pericardial effusion 3. Diffuse subcutaneous edema in the abdominal wall and visualized legs, likely due to congestive heart failure. 4. Colonic diverticulosis but no evidence for acute diverticulitis. 5. Small amount of free fluid over the surface of the liver 6. No bowel obstruction or perforation. Abdomen/Pelvis CT 06/11/19 17:31 IMPRESSION: 1. Bilateral pleural effusions with significant atelectasis of both lungs, worse on the right. Pulmonary edema. Consistent with congestive heart failure. 2. Cardiomegaly with small pericardial effusion 3. Diffuse subcutaneous edema in the abdominal wall and visualized legs, likely due to congestive heart failure. 4. Colonic diverticulosis but no evidence for acute diverticulitis. 5. Small amount of free fluid over the surface of the liver 6. No bowel obstruction or perforation. Chest X-Ray 06/12/19 00:00 IMPRESSION: No pneumothorax status post central line placement. Cardiomegaly and mild vascular congestion. Moderate bilateral pleural effusions with bibasilar airspace opacities, may be secondary to atelectasis or pneumonia. Assessment and Plan - Diagnosis (1) Acute on chronic systolic (congestive) heart failure Is this a current diagnosis for this admission?: Yes Plan: 06/12/2019-patient remains in acute phase. Patient is receiving Bumex 1 mg IV every 6. We will continue this until we see a significant bump in her creatinine. Patient remains on BiPAP 16/8 with 30%. 06/13/2019-decrease Bumex to 1 mg IV every 12 hours secondary to a bump in creatinine. Patient remains on BiPAP 16/8 with 30% at night. Patient on nasal cannula at this time in no acute distress. (2) Acute on chronic respiratory failure with hypoxia and hypercapnia Is this a current diagnosis for this admission?: Yes Plan: 06/12/2019-patient remains on BiPAP at this time. Slow to arouse. I will obtain a stat ABG to determine if we need to change pressures on BiPAP or take other measures. 06/13/2019-improved. Patient awakens with no problem. On nasal cannula at this time able to speak in full sentences. (3) Diabetes mellitus type 2 in obese Is this a current diagnosis for this admission?: Yes Plan: 06/12/2019-stable at this time we will continue current therapies. 06/13/2019-stable continue to follow (4) Coronary artery disease Qualifiers: Coronary Disease-Associated Artery/Lesion type: [place] artery T[place] vs. transplanted heart: [place] heart Associated angina: without angina Qualified Code(s): I25.10 - Atherosclerotic heart disease of [place] coronary artery without angina pectoris Is this a current diagnosis for this admission?: Yes Plan: 06/12/2019-stable continue to follow 06/13/2019-stable (5) Atrial fibrillation Is this a current diagnosis for this admission?: Yes Plan: 06/02/2019-stable at this time continue to follow, continue all home medications once patient is able to swallow 06/13/2018-stable (6) Hypothyroidism Qualifiers: Hypothyroidism type: unspecified Qualified Code(s): E03.9 - Hypothyroidism, unspecified Is this a current diagnosis for this admission?: Yes Plan: 06/12/2019-continue current medications for hypothyroidism with patient is able to take p.o. 06/13/2019-continue current therapy for hypothyroidism (7) Chronic kidney disease, stage IV (severe) Is this a current diagnosis for this admission?: Yes Plan: 06/12/2019-awaiting a.m. labs will make change plan of care at that time. 06/13/2019-slight bump in creatinine this a.m. secondary to diuresis. Have decreased decreased Bumex from 1 mg IV every 6 to IV every 12 continue to follow daily renal panel. (8) Anemia Is this a current diagnosis for this admission?: Yes Plan: 06/12/2019-stable chronic continue to follow 06/13/2019-chronic stable - Plan Summary Summary: Patient is admitted to [facility] for routine supportive and symptomatic cares. Her heart failure be treated with IV Bumex and morphine sulfate 2 mg IV q. one hour as needed for severe dyspnea. Her respiratory failure will be treated with BiPAP until such time as she is improved enough to be treated with supplemental oxygen or be on room air. A Cook catheter was placed in the emergency room and will be maintained until no longer needed. Patient's chronic medication use for her chronic medical problems will be continued as appropriate. Daily metabolic profiles, CBCs and magnesium levels will be followed as part of her ongoing evaluation and treatment. - Time Time Spent with patient: 15-24 minutes - Inpatient Certification Based on my medical assessment, after consideration of the patient's comorbidities, presenting symptoms, or acuity I expect that the services needed warrant INPATIENT care.: Yes I certify that my determination is in accordance with my understanding of Medicare's requirements for reasonable and necessary INPATIENT services [42 CFR 412.3e].: Yes Medical Necessity: Significant Comorbidiites Make Outpatient Treatment Too Risky, Need Close Monitoring Due to Risk of Patient Decompensation, Other - IV diuresis
[2019-06-13] MEDS ORDERED: FLUTICASONE/UMECLIDIN/VILANTER 100-62.5-25 MCG/DOSE IH SCH (10:00)
[2019-06-13] MEDS ORDERED: METOPROLOL SUCCINATE 25 MG TAB.SR.24H PO SCH (10:00)
[2019-06-13] MEDS: INSULIN REG, HUMAN 100 UNIT/ML 3 ML VIAL (PYX) SUBCUT SCH ×4 (10:18→21:40)
[2019-06-13] MEDS: FLUTICASONE/UMECLIDIN/VILANTER 100-62.5-25 MCG/DOSE IH SCH (10:22)
[2019-06-13] MEDS: ALLOPURINOL 100 MG TABLET PO SCH (10:23)
[2019-06-13] MEDS: METOPROLOL SUCCINATE 25 MG TAB.SR.24H PO SCH ×2 (10:23→21:43)
[2019-06-13] MEDS: LOSARTAN POTASSIUM 25 MG TABLET PO SCH (10:23)
[2019-06-13] MEDS: DILTIAZEM HCL 120 MG CAP.SR.24H PO SCH (10:23)
[2019-06-13] MEDS: DOCUSATE SODIUM 100 MG CAPSULE PO SCH ×2 (10:23→17:20)
[2019-06-13] MEDS: BUSPIRONE HCL 10 MG TABLET PO SCH ×2 (10:23→21:43)
[2019-06-13] MEDS: SERTRALINE HCL 50 MG TABLET PO SCH (10:23)
[2019-06-13] MEDS: MORPHINE SULFATE 10 MG/ML INJ IV PRN (18:36)
[2019-06-13] MEDS: INSULIN GLARGINE,HUM.REC.ANLOG 1,000 UNIT/10 ML VIAL SUBCUT SCH (21:41)
[2019-06-13] MEDS: MIRTAZAPINE 15 MG TABLET PO SCH (21:43)
[2019-06-13] MEDS: NORMAL SALINE INJ/PF 0.9% 10 ML SDV IV PRN (23:57)
[2019-06-14] MEDS: AZTREONAM 0.5 GM in DEXTROSE 5%-WATER 50 ML IV SCH ×3 (05:04→21:23)
[2019-06-14] MEDS: MORPHINE SULFATE 10 MG/ML INJ IV PRN ×2 (05:05)
[2019-06-14] MEDS: HEPARIN SOD (PORCINE) 5,000 UNIT/ML 1 ML VIAL SUBCUT SCH ×3 (05:07→21:23)
[2019-06-14] MEDS: NORMAL SALINE INJ/PF 0.9% 10 ML SDV IV PRN (05:07)
[2019-06-14] MEDS: LEVOTHYROXINE SODIUM 0.075 MG TABLET PO SCH (05:18)
[2019-06-14 06:36] LABS: ANION GAP 6 (5-19); BLOOD UREA NITROGEN 71 mg/dL (7-20); CALCIUM 8.4 mg/dL (8.4-10.2); CARBON DIOXIDE 34 mmol/L (22-30); CHLORIDE 99 mmol/L (98-107); GLUCOSE 103 mg/dL (75-110); POTASSIUM 4.8 mmol/L (3.6-5.0)
[2019-06-14 06:52] LABS: HEMATOCRIT 28.1 % (36.0-47.0); HEMOGLOBIN 8.9 g/dL (12.0-15.5); MEAN CORPUSCULAR HEMOGLOBIN 29.8 pg (27.0-33.4); MEAN CORPUSCULAR HGB CONC 31.8 g/dL (32.0-36.0); MEAN CORPUSCULAR VOLUME 94 fl (80-97); PLATELET COUNT 275 10^3/uL (150-450); RED CELL DISTRIBUTION WIDTH 21.1 % (11.5-14.0); WHITE BLOOD COUNT 8.4 10^3/uL (4.0-10.5)
--- NOTE | 2019-06-14 08:25 | PDOC PROGRESS REPORT ---
Subjective Progress Note for:: 06/14/19 Subjective:: 06/12/2019-no complaints this a.m. 06/13/2019-no complaints 06/15/2019-no complaints this a.m. Reason For Visit: ACUTE ON CHRONIC DIASTOLIC CONGESTIVE Physical Exam Vital Signs: Temp Pulse Resp BP Pulse Ox 97.5 F 104 H 18 107/70 97 06/13/19 23:13 06/14/19 06:39 06/13/19 23:13 06/13/19 23:13 06/13/19 23:13 Intake & Output 06/13/19 06/14/19 06/15/19 06:59 06:59 06:59 Intake Total 580 Output Total 575 700 Balance -575 -120 Weight 86.5 kg 86.5 kg General appearance: PRESENT: no acute distress, morbidly obese, well-developed, well-nourished Neck exam: ABSENT: carotid bruit, JVD, lymphadenopathy, thyromegaly Respiratory exam: PRESENT: decreased breath sounds, symmetrical, unlabored Cardiovascular exam: PRESENT: irregular rhythm. ABSENT: diastolic murmur, rubs, systolic murmur Vascular exam: PRESENT: normal capillary refill GI/Abdominal exam: PRESENT: normal bowel sounds, soft. ABSENT: distended, guarding, mass, organolmegaly, rebound, tenderness Extremities exam: PRESENT: full ROM, +2 edema. ABSENT: calf tenderness, clubbing Neurological exam: PRESENT: alert, awake, oriented to person, oriented to place, oriented to time, oriented to situation, CN II-XII grossly intact. ABSENT: motor sensory deficit Psychiatric exam: PRESENT: appropriate affect, normal mood. ABSENT: homicidal ideation, suicidal ideation Skin exam: PRESENT: other - Multiple bruising Adult Front & Back Image: 1 - Central line Results Laboratory Results: 06/14/19 06:10 06/14/19 05:00 06/14/19 06/14/19 05:00 06:10 WBC 8.4 RBC 3.00 L Hgb 8.9 L Hct 28.1 L MCV 94 MCH 29.8 MCHC 31.8 L RDW 21.1 H Plt Count 275 Sodium 139.2 Potassium 4.8 Chloride 99 Carbon Dioxide 34 H Anion Gap 6 BUN 71 H Creatinine 3.08 H Est GFR ( Amer) 18 L Glucose 103 Calcium 8.4 06/11/19 06/11/19 06/11/19 17:21 17:21 23:32 Creatine Kinase 28 L 24 L CK-MB (CK-2) 1.30 Troponin I 0.028 NT-Pro-B Natriuret Pep 8620 H 06/11/19 06/12/19 06/12/19 23:32 03:39 03:39 Creatine Kinase 25 L CK-MB (CK-2) 0.94 1.00 Troponin I 0.021 0.023 NT-Pro-B Natriuret Pep 06/12/19 06/12/19 10:18 10:18 Creatine Kinase 24 L CK-MB (CK-2) 0.77 Troponin I 0.024 NT-Pro-B Natriuret Pep Impressions: Chest CT 06/11/19 17:30 IMPRESSION: 1. Bilateral pleural effusions with significant atelectasis of both lungs, worse on the right. Pulmonary edema. Consistent with congestive heart failure. 2. Cardiomegaly with small pericardial effusion 3. Diffuse subcutaneous edema in the abdominal wall and visualized legs, likely due to congestive heart failure. 4. Colonic diverticulosis but no evidence for acute diverticulitis. 5. Small amount of free fluid over the surface of the liver 6. No bowel obstruction or perforation. Abdomen/Pelvis CT 06/11/19 17:31 IMPRESSION: 1. Bilateral pleural effusions with significant atelectasis of both lungs, worse on the right. Pulmonary edema. Consistent with congestive heart failure. 2. Cardiomegaly with small pericardial effusion 3. Diffuse subcutaneous edema in the abdominal wall and visualized legs, likely due to congestive heart failure. 4. Colonic diverticulosis but no evidence for acute diverticulitis. 5. Small amount of free fluid over the surface of the liver 6. No bowel obstruction or perforation. Chest X-Ray 06/12/19 00:00 IMPRESSION: No pneumothorax status post central line placement. Cardiomegaly and mild vascular congestion. Moderate bilateral pleural effusions with bibasilar airspace opacities, may be secondary to atelectasis or pneumonia. Assessment and Plan - Diagnosis (1) Acute on chronic systolic (congestive) heart failure Is this a current diagnosis for this admission?: Yes Plan: 06/12/2019-patient remains in acute phase. Patient is receiving Bumex 1 mg IV every 6. We will continue this until we see a significant bump in her creatinine. Patient remains on BiPAP 16/8 with 30%. 06/13/2019-decrease Bumex to 1 mg IV every 12 hours secondary to a bump in creatinine. Patient remains on BiPAP 16/8 with 30% at night. Patient on nasal cannula at this time in no acute distress. 06/14/2019-improved. Patient did show a bump in her creatinine this morning I have DC'd IV Bumex and place patient on Bumex 1 mg p.o. twice daily. Patient will continue on BiPAP at night and nasal cannula throughout the day. Able to talk in full sentences at this time. (2) Acute on chronic respiratory failure with hypoxia and hypercapnia Is this a current diagnosis for this admission?: Yes Plan: 06/12/2019-patient remains on BiPAP at this time. Slow to arouse. I will obtain a stat ABG to determine if we need to change pressures on BiPAP or take other measures. 06/13/2019-improved. Patient awakens with no problem. On nasal cannula at this time able to speak in full sentences. 06/14/2019-improved. Patient remains on nasal cannula. Speaking in full sentences (3) Diabetes mellitus type 2 in obese Is this a current diagnosis for this admission?: Yes Plan: 06/12/2019-stable at this time we will continue current therapies. 06/13/2019-stable continue to follow 06/14/2019-stable (4) Coronary artery disease Qualifiers: Coronary Disease-Associated Artery/Lesion type: [place] artery [place] vs. transplanted heart: [place] heart Associated angina: without angina Qualified Code(s): I25.10 - Atherosclerotic heart disease of [place] coronary artery without angina pectoris Is this a current diagnosis for this admission?: Yes Plan: 06/12/2019-stable continue to follow 06/13/2019-stable 06/14/2019-stable (5) Atrial fibrillation Is this a current diagnosis for this admission?: Yes Plan: 06/02/2019-stable at this time continue to follow, continue all home medications once patient is able to swallow 06/13/2018-stable 06/14/2019-stable continue current therapy (6) Hypothyroidism Qualifiers: Hypothyroidism type: unspecified Qualified Code(s): E03.9 - Hypothyroidism, unspecified Is this a current diagnosis for this admission?: Yes Plan: 06/12/2019-continue current medications for hypothyroidism with patient is able to take p.o. 06/13/2019-continue current therapy for hypothyroidism 06/14/2019-stable (7) Chronic kidney disease, stage IV (severe) Is this a current diagnosis for this admission?: Yes Plan: 06/12/2019-awaiting a.m. labs will make change plan of care at that time. 06/13/2019-slight bump in creatinine this a.m. secondary to diuresis. Have decreased decreased Bumex from 1 mg IV every 6 to IV every 12 continue to follow daily renal panel. 06/14/2019-patient has shown a increase in her creatinine to 3.01. I have DC'd IV Bumex at this time will start patient on Bumex 1 mg p.o. twice daily. Continue to follow daily renal panels (8) Anemia Is this a current diagnosis for this admission?: Yes Plan: 06/12/2019-stable chronic continue to follow 06/13/2019-chronic stable 06/14/2019-stable chronic - Plan Summary Summary: Patient is admitted to [facility] for routine supportive and symptomatic cares. Her heart failure be treated with IV Bumex and morphine sulfate 2 mg IV q. one hour as needed for severe dyspnea. Her respiratory failure will be treated with BiPAP until such time as she is improved enough to be treated with supplemental oxygen or be on room air. A Cook catheter was placed in the emergency room and will be maintained until no longer needed. Patient's chronic medication use for her chronic medical problems will be continued as appropriate. Daily metabolic profiles, CBCs and magnesium levels will be followed as part of her ongoing evaluation and treatment. - Time Time Spent with patient: 15-24 minutes - Inpatient Certification Based on my medical assessment, after consideration of the patient's comorbidities, presenting symptoms, or acuity I expect that the services needed warrant INPATIENT care.: Yes I certify that my determination is in accordance with my understanding of Medicare's requirements for reasonable and necessary INPATIENT services [42 CFR 412.3e].: Yes Medical Necessity: Significant Comorbidiites Make Outpatient Treatment Too Risky, Need Close Monitoring Due to Risk of Patient Decompensation
[2019-06-14] MEDS: INSULIN REG, HUMAN 100 UNIT/ML 3 ML VIAL (PYX) SUBCUT SCH ×4 (08:34→21:50)
[2019-06-14] MEDS ORDERED: ONDANSETRON HCL INJ/PF 4 MG/2 ML SDV ONE (09:03)
[2019-06-14] MEDS: BUMETANIDE 1 MG TABLET PO SCH ×2 (09:06→17:03)
[2019-06-14] MEDS: METOPROLOL SUCCINATE 25 MG TAB.SR.24H PO SCH ×2 (09:06→21:24)
[2019-06-14] MEDS: DOCUSATE SODIUM 100 MG CAPSULE PO SCH ×2 (09:06→17:03)
[2019-06-14] MEDS: SERTRALINE HCL 50 MG TABLET PO SCH (09:07)
[2019-06-14] MEDS: ALLOPURINOL 100 MG TABLET PO SCH (09:07)
[2019-06-14] MEDS: LOSARTAN POTASSIUM 25 MG TABLET PO SCH (09:07)
[2019-06-14] MEDS: BUSPIRONE HCL 10 MG TABLET PO SCH ×2 (09:07→21:24)
[2019-06-14] MEDS: DILTIAZEM HCL 120 MG CAP.SR.24H PO SCH (09:07)
[2019-06-14] MEDS: FLUTICASONE/UMECLIDIN/VILANTER 100-62.5-25 MCG/DOSE IH SCH (09:08)
[2019-06-14] MEDS ORDERED: ONDANSETRON HCL INJ/PF 4 MG/2 ML SDV IV PRN (09:26)
[2019-06-14] MEDS ORDERED: PROMETHAZINE HCL INJ 25 MG/1 ML VIAL ONE (10:43)
[2019-06-14] MEDS: PROMETHAZINE HCL INJ 25 MG/1 ML VIAL IV PRN ×2 (10:48→17:03)
[2019-06-14] MEDS: MIRTAZAPINE 15 MG TABLET PO SCH (21:22)
[2019-06-14] MEDS: INSULIN GLARGINE,HUM.REC.ANLOG 1,000 UNIT/10 ML VIAL SUBCUT SCH (21:53)
[2019-06-15] MEDS: MORPHINE SULFATE 10 MG/ML INJ IV PRN ×3 (00:11→12:25)
[2019-06-15] MEDS: PROMETHAZINE HCL INJ 25 MG/1 ML VIAL IV PRN (00:11)
[2019-06-15] MEDS: LEVOTHYROXINE SODIUM 0.075 MG TABLET PO SCH (05:16)
[2019-06-15] MEDS: HEPARIN SOD (PORCINE) 5,000 UNIT/ML 1 ML VIAL SUBCUT SCH ×3 (05:16→21:55)
[2019-06-15] MEDS: AZTREONAM 0.5 GM in DEXTROSE 5%-WATER 50 ML IV SCH ×3 (05:17→21:54)
[2019-06-15] MEDS: INSULIN REG, HUMAN 100 UNIT/ML 3 ML VIAL (PYX) SUBCUT SCH ×4 (08:36→21:48)
[2019-06-15] MEDS: DOCUSATE SODIUM 100 MG CAPSULE PO SCH ×2 (09:08→17:09)
[2019-06-15] MEDS: BUMETANIDE 1 MG TABLET PO SCH ×2 (09:08→17:09)
[2019-06-15] MEDS: SERTRALINE HCL 50 MG TABLET PO SCH (09:09)
[2019-06-15] MEDS: DILTIAZEM HCL 120 MG CAP.SR.24H PO SCH (09:09)
[2019-06-15] MEDS: ALLOPURINOL 100 MG TABLET PO SCH (09:09)
[2019-06-15] MEDS: METOPROLOL SUCCINATE 25 MG TAB.SR.24H PO SCH ×2 (09:09→21:53)
[2019-06-15] MEDS: BUSPIRONE HCL 10 MG TABLET PO SCH ×2 (09:09→21:55)
[2019-06-15] MEDS: LOSARTAN POTASSIUM 25 MG TABLET PO SCH (09:09)
[2019-06-15] MEDS: FLUTICASONE/UMECLIDIN/VILANTER 100-62.5-25 MCG/DOSE IH SCH (09:17)
[2019-06-15] MEDS ORDERED: LIDOCAINE 5% (700 MG) TRANSDERMAL ADH..PATCH TP SCH (11:00)
--- NOTE | 2019-06-15 15:27 | PDOC PROGRESS REPORT ---
Subjective Progress Note for:: 06/15/19 Subjective:: This is an 78-year-old female with multiple medical comorbidities including chronic respiratory failure, congestive heart failure, atrial fibrillation, CKD 4, COPD, hypertension, coronary artery disease, diabetes mellitus and hypothyroidism with multiple prior admissions from CHF and atrial fibrillation who was recently discharged anticipated to be transitioned to hospice. Appears patient was not transitioned to hospice at the longterm and was sent back to the ER and readmitted for acute CHF exacerbation. No acute event overnight. Upon encounter, patient is not in distress. She says that her shortness of breath has improved. She denies chest pain. She does verbalize that she remains a DNR/DNI and has expressed her understanding about hospice service. Reason For Visit: ACUTE ON CHRONIC DIASTOLIC CONGESTIVE Physical Exam Vital Signs: Temp Pulse Resp BP Pulse Ox 98.0 F 88 14 106/76 95 06/15/19 11:50 06/15/19 13:52 06/15/19 08:04 06/15/19 11:50 06/15/19 11:50 Intake & Output 06/14/19 06/15/19 06/16/19 06:59 06:59 06:59 Intake Total 580 240 Output Total 700 300 Balance -120 -60 Weight 190 lb 11.198 oz 200 lb 9.93 oz General appearance: PRESENT: no acute distress, well-developed, well-nourished Head exam: PRESENT: atraumatic, normocephalic Eye exam: PRESENT: conjunctiva pink, EOMI, PERRLA. ABSENT: scleral icterus Ear exam: PRESENT: normal external ear exam Mouth exam: PRESENT: moist, tongue midline Neck exam: ABSENT: carotid bruit, JVD, lymphadenopathy, thyromegaly Respiratory exam: PRESENT: rales, rhonchi. ABSENT: wheezes Cardiovascular exam: PRESENT: RRR. ABSENT: diastolic murmur, rubs, systolic murmur Pulses: PRESENT: normal dorsalis pedis pul GI/Abdominal exam: PRESENT: normal bowel sounds, soft. ABSENT: distended, guarding, mass, organolmegaly, rebound, tenderness Rectal exam: PRESENT: deferred Extremities exam: PRESENT: +1 edema Neurological exam: PRESENT: alert, awake, oriented to person, oriented to place, CN II-XII grossly intact. ABSENT: motor sensory deficit Results Laboratory Results: 06/14/19 06:10 06/14/19 05:00 06/11/19 06/11/19 06/11/19 17:21 17:21 23:32 Creatine Kinase 28 L 24 L CK-MB (CK-2) 1.30 Troponin I 0.028 NT-Pro-B Natriuret Pep 8620 H 06/11/19 06/12/19 06/12/19 23:32 03:39 03:39 Creatine Kinase 25 L CK-MB (CK-2) 0.94 1.00 Troponin I 0.021 0.023 NT-Pro-B Natriuret Pep 06/12/19 06/12/19 10:18 10:18 Creatine Kinase 24 L CK-MB (CK-2) 0.77 Troponin I 0.024 NT-Pro-B Natriuret Pep Impressions: Chest CT 06/11/19 17:30 IMPRESSION: 1. Bilateral pleural effusions with significant atelectasis of both lungs, worse on the right. Pulmonary edema. Consistent with congestive heart failure. 2. Cardiomegaly with small pericardial effusion 3. Diffuse subcutaneous edema in the abdominal wall and visualized legs, likely due to congestive heart failure. 4. Colonic diverticulosis but no evidence for acute diverticulitis. 5. Small amount of free fluid over the surface of the liver 6. No bowel obstruction or perforation. Abdomen/Pelvis CT 06/11/19 17:31 IMPRESSION: 1. Bilateral pleural effusions with significant atelectasis of both lungs, worse on the right. Pulmonary edema. Consistent with congestive heart failure. 2. Cardiomegaly with small pericardial effusion 3. Diffuse subcutaneous edema in the abdominal wall and visualized legs, likely due to congestive heart failure. 4. Colonic diverticulosis but no evidence for acute diverticulitis. 5. Small amount of free fluid over the surface of the liver 6. No bowel obstruction or perforation. Chest X-Ray 06/12/19 00:00 IMPRESSION: No pneumothorax status post central line placement. Cardiomegaly and mild vascular congestion. Moderate bilateral pleural effusions with bibasilar airspace opacities, may be secondary to atelectasis or pneumonia. Assessment and Plan - Diagnosis (1) Acute on chronic respiratory failure with hypoxia and hypercapnia Is this a current diagnosis for this admission?: Yes Plan: Secondary to CHF exacerbation. Currently saturating well on 3 L of nasal cannula. (2) Acute on chronic diastolic CHF (congestive heart failure) Is this a current diagnosis for this admission?: Yes Plan: Continue Bumex. (3) Atrial fibrillation Is this a current diagnosis for this admission?: Yes Plan: Continue oral Lopressor and Cardizem. (4) Acute kidney injury superimposed on chronic kidney disease Is this a current diagnosis for this admission?: Yes - Time Time Spent with patient: 25-34 minutes
[2019-06-15] MEDS: MIRTAZAPINE 15 MG TABLET PO SCH (21:55)
[2019-06-15] MEDS: INSULIN GLARGINE,HUM.REC.ANLOG 1,000 UNIT/10 ML VIAL SUBCUT SCH (21:55)
[2019-06-16] MEDS: AZTREONAM 0.5 GM in DEXTROSE 5%-WATER 50 ML IV SCH (05:45)
[2019-06-16] MEDS: HEPARIN SOD (PORCINE) 5,000 UNIT/ML 1 ML VIAL SUBCUT SCH ×2 (05:46→05:52)
[2019-06-16] MEDS: LEVOTHYROXINE SODIUM 0.075 MG TABLET PO SCH ×2 (05:46→05:52)
[2019-06-16] MEDS: INSULIN REG, HUMAN 100 UNIT/ML 3 ML VIAL (PYX) SUBCUT SCH (07:51)
[2019-06-16 08:20] VITALS: BP 117/65
--- NOTE | 2019-06-16 08:26 | PDOC TRANSFER SUMMARY ---
Impression - Admit/DC Date/PCP Admission Date/Primary Care Provider: 06/11/19 20:04 GERSON MAY Discharge Date: 06/16/19 - Discharge Diagnosis (1) Acute on chronic respiratory failure with hypoxia and hypercapnia Is this a current diagnosis for this admission?: Yes (2) Acute on chronic diastolic CHF (congestive heart failure) Is this a current diagnosis for this admission?: Yes (3) Atrial fibrillation Is this a current diagnosis for this admission?: Yes (4) Acute kidney injury superimposed on chronic kidney disease Is this a current diagnosis for this admission?: Yes - Additional Information Resuscitation Status: Full Code Referrals: GERSON MAY MD [Primary Care Provider] - Follow up as needed ([facility].) Prescriptions: Losartan Potassium [Cozaar 25 mg Tablet] 25 mg PO DAILY #30 tablet Lidocaine [Lidoderm 5% (700 mg) Transdermal Patch] 1 patch TP DAILY PRN #5 adh..patch PRN Reason: Home Medications: Acetaminophen [Tylenol 325 mg Tablet] 650 mg PO Q6HP PRN 06/01/19 Apremilast [Otezla] 30 mg PO Q12 06/01/19 Cyclosporine 0.05% Oph Emulsio [Restasis 0.05% Oph Emulsion Pf 0.4 ml] 1 drop OU DAILY 06/01/19 Diltiazem HCl [Cardizem Cd 120 mg Capsule] 120 mg PO QAM 06/01/19 Fexofenadine HCl [Hyacinth] 180 mg PO QAM 06/01/19 Fluticasone/Umeclidin/Vilanter [Trelegy 100-62.5-25 Mcg Ellipta 14 Dose/Dpi] 1 puff IH DAILY 06/01/19 Insulin Glargine,Hum.rec.anlog [Basaglar Kwikpen U-100] 20 units SQ QHS 06/01/19 Insulin Lispro [Humalog Insulin (Lispro) 100 unit/mL] 0 units SQ .PERSLIDINGSCALE 06/01/19 Levothyroxine Sodium 75 mcg PO Q6AM 06/01/19 Lidocaine [Lidoderm 5% (700 mg) Transdermal Patch] 1 patch TD DAILY 06/01/19 Mag Hydrox/Al Hydrox/Simeth [Maalox Plus Susp 30 Udcup] 20 ml PO DAILYP PRN 06/01/19 Melatonin [Melatonin 5 mg Tablet] 5 mg PO QHS 06/01/19 Metoprolol Succinate [Toprol Xl 25 mg Tab.sr] 25 mg PO Q12 06/01/19 Mirtazapine [Remeron] 7.5 mg PO QHS 06/01/19 Ondansetron HCl [Zofran 4 mg Tablet] 4 mg PO Q12HP PRN 06/01/19 Pantoprazole Sodium [Protonix [address] Tablet] 40 mg PO Q6AM 06/01/19 Prednisone [Deltasone 5 mg Tablet] 5 mg PO QAM 06/01/19 Tiotropium [place] [Spiriva Handihaler 5 Cap/Kit (18 Mcg/Cap)] 1 cap IH DAILY 06/01/19 Acetaminophen [Tylenol 325 mg Tablet] 650 mg PO Q4HP PRN tablet 06/03/19 Allopurinol [Zyloprim 100 mg Tablet] 100 mg PO DAILY #30 tablet 06/03/19 Sertraline HCl [Zoloft 50 mg Tablet] 25 mg PO DAILY #30 06/03/19 Bumetanide [Bumex 2 mg Tablet] 2 mg PO DAILY 06/12/19 Buspirone HCl [Buspar 10 mg Tablet] 10 mg PO Q12 06/12/19 Lidocaine [Lidoderm 5% (700 mg) Transdermal Patch] 1 patch TP DAILY PRN #5 adh..patch 06/16/19 Losartan Potassium [Cozaar 25 mg Tablet] 25 mg PO DAILY #30 tablet 06/16/19 History of Present Illiness History of Present Illness: Admitting hospitalist's H&P: PREETI ELIZABETH is a 78 year old female who presented to the emergency room with a 3-day history of dyspnea. Patient admits progressively worsening dyspnea over the last 3 days while being treated as a patient at [facility]. Her dyspnea is increased by activity. Because of her increased shortness of breath a BNP was performed on an outpatient basis with a result of 8100. Patient was subsequently sent to the emergency room for further evaluation treatment. She denies associated or accompanying signs and symptoms. She admits numerous prior similar episodes related to her heart failure and COPD. She has not identified any additional aggravating or ameliorating factors for her present episode of dyspnea. In the emergency room the patient was found to have a BNP of greater than 8900 and she was found to be in acute respiratory failure with hypoxia and hypercapnia. She was treated with BiPAP and was araya bsequently admitted to hospital for further evaluation treatment. Hospital Course Hospital Course: This is an 78-year-old female with multiple medical comorbidities including chronic respiratory failure, congestive heart failure, atrial fibrillation, CKD 4, COPD, hypertension, coronary artery disease, diabetes mellitus and hypothyroidism with multiple prior admissions from CHF and atrial fibrillation who was recently discharged anticipated to be transitioned to hospice. Appears patient was not transitioned to hospice at the custodial and was sent back to the ER and readmitted for acute CHF exacerbation. She was started on IV Bumex q12. CT showed pleural effusion worse on the right. She did verbalize she remains a DNR/DNI and does not want to pursue any invasive procedure or intervention including a thoracentesis. She did get relief from diuresis. We rediscussed previous plan for hospice transition and she remains amenable to transition to hospice. Discharge planning has made arrangements with hospice company. She will be discharged back to [facility]. Physical Exam Vital Signs: Temp Pulse Resp BP Pulse Ox 97.6 F 59 L 16 98/66 L 95 06/15/19 16:10 06/15/19 16:10 06/15/19 16:10 06/15/19 16:10 06/15/19 16:10 Intake & Output 06/14/19 06/15/19 06/16/19 06:59 06:59 06:59 Intake Total 580 240 240 Output Total 700 300 125 Balance -120 -60 115 Weight 190 lb 11.198 oz 200 lb 9.93 oz General appearance: PRESENT: no acute distress, well-developed, well-nourished Head exam: PRESENT: atraumatic, normocephalic Eye exam: PRESENT: conjunctiva pink, EOMI, PERRLA. ABSENT: scleral icterus Ear exam: PRESENT: normal external ear exam Mouth exam: PRESENT: moist, tongue midline Neck exam: ABSENT: carotid bruit, JVD, lymphadenopathy, thyromegaly Respiratory exam: PRESENT: rales, rhonchi. ABSENT: wheezes Cardiovascular exam: PRESENT: RRR. ABSENT: diastolic murmur, rubs, systolic murmur Pulses: PRESENT: normal dorsalis pedis pul GI/Abdominal exam: PRESENT: normal bowel sounds, soft. ABSENT: distended, guarding, mass, organolmegaly, rebound, tenderness Rectal exam: PRESENT: deferred Extremities exam: PRESENT: +1 edema Neurological exam: PRESENT: alert, awake, oriented to person, oriented to place, oriented to time Results Laboratory Results: WBC 8.4 10^3/uL (4.0-10.5) 06/14/19 06:10 RBC 3.00 10^6/uL (3.72-5.28) L 06/14/19 06:10 Hgb 8.9 g/dL (12.0-15.5) L 06/14/19 06:10 Hct 28.1 % (36.0-47.0) L 06/14/19 06:10 MCV 94 fl (80-97) 06/14/19 06:10 MCH 29.8 pg (27.0-33.4) 06/14/19 06:10 MCHC 31.8 g/dL (32.0-36.0) L 06/14/19 06:10 RDW 21.1 % (11.5-14.0) H 06/14/19 06:10 Plt Count 275 10^3/uL (150-450) 06/14/19 06:10 Lymph % (Auto) 10.1 % (13-45) L 06/13/19 05:00 Emmet % (Auto) 8.0 % (3-13) 06/13/19 05:00 Eos % (Auto) 1.8 % (0-6) 06/13/19 05:00 Baso % (Auto) 1.2 % (0-2) 06/13/19 05:00 Absolute Neuts (auto) 5.3 10^3/uL (1.7-8.2) 06/13/19 05:00 Absolute Lymphs (auto) 0.7 10^3/uL (0.5-4.7) 06/13/19 05:00 Absolute Monos (auto) 0.5 10^3/uL (0.1-1.4) 06/13/19 05:00 Absolute Eos (auto) 0.1 10^3/uL (0.0-0.6) 06/13/19 05:00 Absolute Basos (auto) 0.1 10^3/uL (0.0-0.2) 06/13/19 05:00 Total Counted 100 06/11/19 17:21 Seg Neutrophils % 78.9 % (42-78) H 06/13/19 05:00 Seg Neuts % (Manual) 94 % (42-78) H 06/11/19 17:21 Lymphocytes % (Manual) 4 % (13-45) L 06/11/19 17:21 Monocytes % (Manual) 2 % (3-13) L 06/11/19 17:21 Eosinophils % (Manual) 0 % (0-6) 06/11/19 17:21 Basophils % (Manual) 0 % (0-2) 06/11/19 17:21 Abs Neuts (Manual) 8.8 10^3/uL (1.7-8.2) H 06/11/19 17:21 Abs Lymphs (Manual) 0.4 10^3/uL (0.5-4.7) L 06/11/19 17:21 Abs Monocytes (Manual) 0.2 10^3/uL (0.1-1.4) 06/11/19 17:21 Absolute Eos (Manual) 0.0 10^3/uL (0.0-0.6) 06/11/19 17:21 Abs Basophils (Manual) 0.0 10^3/uL (0.0-0.2) 06/11/19 17:21 Platelet Comment ADEQUATE 06/11/19 17:21 Hypochromasia 1+ 06/11/19 17:21 Anisocytosis 2+ 06/11/19 17:21 Carbonic Acid 2.02 mmol/L (1.05-1.35) H 06/11/19 21:24 HCO3/H2CO3 Ratio 17:1 06/11/19 21:24 ABG pH 7.34 (7.35-7.45) L 06/11/19 21:24 ABG pCO2 67.0 mmHg (35-45) H 06/11/19 21:24 ABG pO2 64.2 mmHg (80-100) L 06/11/19 21:24 ABG HCO3 35.3 mmol/L (20-24) H 06/11/19 21:24 ABG Total CO2 37.4 mmol/L (21-25) H 06/11/19 21:24 ABG O2 Saturation 90.5 % (94-98) L 06/11/19 21:24 ABG Base Excess 8.0 mmol/L 06/11/19 21:24 FiO2 30% 06/11/19 21:24 Sodium 139.2 mmol/L (137-145) 06/14/19 05:00 Potassium 4.8 mmol/L (3.6-5.0) 06/14/19 05:00 Chloride 99 mmol/L (98-107) 06/14/19 05:00 Carbon Dioxide 34 mmol/L (22-30) H 06/14/19 05:00 Anion Gap 6 (5-19) 06/14/19 05:00 BUN 71 mg/dL (7-20) H 06/14/19 05:00 Creatinine 3.08 mg/dL (0.52-1.25) H 06/14/19 05:00 Est GFR ( Amer) 18 (>60) L 06/14/19 05:00 Est GFR (MDRD) Non-Af 15 (>60) L 06/14/19 05:00 Glucose 103 mg/dL (75-110) 06/14/19 05:00 POC Glucose 88 mg/dL (70-110) 06/15/19 16:09 Lactic Acid 0.9 mmol/L (0.7-2.1) 06/11/19 17:21 Calcium 8.4 mg/dL (8.4-10.2) 06/14/19 05:00 Magnesium 2.8 mg/dL (1.6-2.3) H 06/12/19 03:39 Total Bilirubin 0.6 mg/dL (0.2-1.3) 06/11/19 17:21 Direct Bilirubin 0.3 mg/dL (0.0-0.4) 06/11/19 17:21 Neonat Total Bilirubin Not Reportable 06/11/19 17:21 Neonat Direct Bilirubin Not Reportable 06/11/19 17:21 Neonat Indirect Bili Not Reportable 06/11/19 17:21 AST 30 U/L (14-36) 06/11/19 17:21 ALT 16 U/L (<35) 06/11/19 17:21 Alkaline Phosphatase 83 U/L (38-126) 06/11/19 17:21 Creatine Kinase 24 U/L (30-135) L 06/12/19 10:18 CK-MB (CK-2) 0.77 ng/mL (<4.55) 06/12/19 10:18 Troponin I 0.024 ng/mL 06/12/19 10:18 NT-Pro-B Natriuret Pep 8620 pg/mL (<450) H 06/11/19 17:21 Total Protein 6.7 g/dL (6.3-8.2) 06/11/19 17:21 Albumin 3.6 g/dL (3.5-5.0) 06/11/19 17:21 Urine Color YELLOW 06/11/19 18:55 Urine Appearance SLIGHTLY-CLOUDY 06/11/19 18:55 Urine pH 5.0 (5.0-9.0) 06/11/19 18:55 Ur Specific Trevor 1.014 06/11/19 18:55 Urine Protein 100 mg/dL (NEGATIVE) H 06/11/19 18:55 Urine Glucose (UA) NEGATIVE mg/dL (NEGATIVE) 06/11/19 18:55 Urine Ketones NEGATIVE mg/dL (NEGATIVE) 06/11/19 18:55 Urine Blood NEGATIVE (NEGATIVE) 06/11/19 18:55 Urine Nitrite NEGATIVE (NEGATIVE) 06/11/19 18:55 Urine Bilirubin NEGATIVE (NEGATIVE) 06/11/19 18:55 Urine Urobilinogen NEGATIVE mg/dL (<2.0) 06/11/19 18:55 Ur Leukocyte Esterase TRACE (NEGATIVE) H 06/11/19 18:55 Urine WBC (Auto) 4 /HPF 06/11/19 18:55 Urine RBC (Auto) 1 /HPF 06/11/19 18:55 U Hyaline Cast (Auto) 5 /LPF 06/11/19 18:55 Squamous Epi Cells Auto 1 /HPF 06/11/19 18:55 Urine Mucus (Auto) RARE /LPF 06/11/19 18:55 Urine Ascorbic Acid NEGATIVE (NEGATIVE) 06/11/19 18:55 06/11/19 06/11/19 06/12/19 17:21 23:32 03:39 CK-MB (CK-2) 1.30 0.94 1.00 Troponin I 0.028 0.021 0.023 NT-Pro-B Natriuret Pep 8620 H 06/12/19 10:18 CK-MB (CK-2) 0.77 Troponin I 0.024 NT-Pro-B Natriuret Pep Impressions: Chest X-Ray 06/11/19 16:11 IMPRESSION: Basilar predominant pleural and parenchymal opacities that could represent a combination of pleural fluid, atelectasis, and in the proper clinical setting pneumonia. Chest CT 06/11/19 17:30 IMPRESSION: 1. Bilateral pleural effusions with significant atelectasis of both lungs, worse on the right. Pulmonary edema. Consistent with congestive heart failure. 2. Cardiomegaly with small pericardial effusion 3. Diffuse subcutaneous edema in the abdominal wall and visualized legs, likely due to congestive heart failure. 4. Colonic diverticulosis but no evidence for acute diverticulitis. 5. Small amount of free fluid over the surface of the liver 6. No bowel obstruction or perforation. Abdomen/Pelvis CT 06/11/19 17:31 IMPRESSION: 1. Bilateral pleural effusions with significant atelectasis of both lungs, worse on the right. Pulmonary edema. Consistent with congestive heart failure. 2. Cardiomegaly with small pericardial effusion 3. Diffuse subcutaneous edema in the abdominal wall and visualized legs, likely due to congestive heart failure. 4. Colonic diverticulosis but no evidence for acute diverticulitis. 5. Small amount of free fluid over the surface of the liver 6. No bowel obstruction or perforation. Chest X-Ray 06/12/19 00:00 IMPRESSION: Moderate bilateral pleural effusions with partial collapse of the bilateral lower lobes, similar compared to CT exam 06/11/2019 Chest X-Ray 06/12/19 00:00 IMPRESSION: No pneumothorax status post central line placement. Cardiomegaly a nd mild vascular congestion. Moderate bilateral pleural effusions with bibasilar airspace opacities, may be secondary to atelectasis or pneumonia. Stroke Is this a Stroke Patient?: No Acute Heart Failure - Is this a Heart Failure Patient?: Yes Documentation of LVEF assessment?: Yes LVEF < 40%?: No- if no continue to question #3
== END 2019-06-16 09:21 | DRG 291 ==
LOC: ER 15:53 → EH 20:04 → 3W 22:31 → ICU 06-12 14:48 → 3W 06-12 18:13
PROVIDERS: ADMIT Emergency Medicine; ATTEND Emergency Medicine
PROC: 5A09357 Assistance with Respiratory Ventilation, Less than 24 Consecutive Hours, Continuous Positive Airway Pressure (ICD-10-PCS; principal; 2019-06-11)
PROC: 02HV33Z Insertion of Infusion Device into Superior Vena Cava, Percutaneous Approach (ICD-10-PCS; 2019-06-12)
DX: I13.0 Hypertensive heart and chronic kidney disease with heart failure and stage 1 through stage 4 chronic kidney disease, or unspecified chronic kidney disease (principal); I50.33 Acute on chronic diastolic (congestive) heart failure; J96.22 Acute and chronic respiratory failure with hypercapnia; J96.21 Acute and chronic respiratory failure with hypoxia; N18.4 Chronic kidney disease, stage 4 (severe); N17.9 Acute kidney failure, unspecified; J44.1 Chronic obstructive pulmonary disease with (acute) exacerbation; D63.1 Anemia in chronic kidney disease; E11.22 Type 2 diabetes mellitus with diabetic chronic kidney disease; I48.91 Unspecified atrial fibrillation; Z66 Do not resuscitate; I25.10 Atherosclerotic heart disease of native coronary artery without angina pectoris; E03.9 Hypothyroidism, unspecified; Z95.5 Presence of coronary angioplasty implant and graft; E78.5 Hyperlipidemia, unspecified; K21.9 Gastro-esophageal reflux disease without esophagitis; M19.90 Unspecified osteoarthritis, unspecified site; M10.9 Gout, unspecified; F32.9 Major depressive disorder, single episode, unspecified; Z79.4 Long term (current) use of insulin; Z79.52 Long term (current) use of systemic steroids; Z87.891 Personal history of nicotine dependence; Z88.0 Allergy status to penicillin; Z88.8 Allergy status to other drugs, medicaments and biological substances; Z91.048 Other nonmedicinal substance allergy status; Z83.3 Family history of diabetes mellitus; Z82.49 Family history of ischemic heart disease and other diseases of the circulatory system
CPT/HCPCS: 36415; 71045; 71250; 74176; 80048; 80053; 81001; 82550; 82553; 82803; 82962; 83605; 83735; 83880; 84484; 85025; 85027; 87040; 87086; 93005; 93010; 94660; 96374; 99285; C1751; J1642; J1644; J1815; J2060; J2270; J2405; J2550; J3490; J7060